=== PATIENT | female | born 1950 | race Caucasian/White ===

== ENCOUNTER 2019-03-25 17:02 | Inpatient (IN) | payer OTHER, SELFPAY ==
--- NOTE | ~2019-03-25 | XR_ITS ---
EXAMINATION: XR chest 2V DATE: 03/25/2019 20:06 INDICATION: Cough and shortness of breath TECHNIQUE: frontal and lateral views of the chest were obtained. COMPARISON: Chest radiograph dated 12/29/2018 FINDINGS: Megaly with pulmonary vascular congestion. Increased indistinct interstitial and subtle patchy airspa ce opacities throughout both lungs, right greater than left which could represent pulmonary edema and /or pneumonia. Trace pleural fluid along the fissures. No pneumothorax. Thoracic kyphosis with mild s pondylosis. Old proximal right humeral fracture deformity. IMPRESSION: 1. Bilateral lung disease which could represent mild to moderate pulmonary edema, pneumonia or some c ombination thereof. 2. Cardiomegaly with pulmonary vascular congestion. Reviewed, dictated and finalized at location A. N SALES REPRESENTATIVE IMPRESSION: 1. Bilateral lung disease which could represent mild to moderate pulmonary demario a, pneumonia or some combination thereof. 2. Cardiomegaly with pulmonary vascular congestion.
--- NOTE | ~2019-03-25 | US_ITS ---
EXAMINATION: US venous doppler [facility] DATE: 03/26/2019 10:38 INDICATION: Lower limb edema. TECHNIQUE: Grayscale ultrasound images without and with compression and Doppler ultrasound images of the bilateral lower extremity veins were obtained. COMPARISON: Ultrasound 12/29/2018 FINDINGS: The visualized portions of right common femoral vein, profunda (deep) femoral vein, femoral vein, pop liteal vein, peroneal veins, posterior tibial veins, and greater saphenous vein outflow are patent. The visualized portions of left common femoral vein, profunda femoral vein, femoral vein, popliteal v ein, peroneal veins, posterior tibial veins, and greater saphenous vein outflow are patent. IMPRESSION: 1. No deep venous thrombosis. Reviewed, dictated and finalized at location A. EU COUNSELOR
[2019-03-25 17:05] VITALS: BP 173/56; PULSE 78; RESP 20; TEMP 37.4; O2SAT 100
[2019-03-25 17:17] LABS: Glucose Point of Care 404 (65-105)
--- NOTE | 2019-03-25 17:59 | ED.RECABL ---
HPI - Recheck/Abnormal Lab/Rx General Chief Complaint: Recheck/Abnormal Lab/Rx Stated Complaint: HYPERGYCEMIA Time Seen by Provider: 03/25/19 17:16 Source: patient, family and RN notes reviewed Mode of arrival: ambulatory Limitations: no limitations History of Present Illness HPI narrative: A 68 y/o female presents to the ED with elevated BS beginning this morning. She states that when she woke up with morning that her BS was high, so she switched her pump. She reports that her BS then started to decrease but that this afternoon it began to increase and was 380 at 1650, so she decided to come to the ED. She notes associated nausea with one episode of vomiting, a rapid HR, and hoarse voice. She also notes that she has chronic BLE edema. She denies any fevers, chills, cough, SOB, CP, diarrhea, ABD pain, rash, or any other medical complaints at this time. MD complaint: abnormal lab Returns today for: other (checked BS this morning and it was elevated) Description of abnormal result: Elevated BS. Context: other (BS continued to increase after changing insulin pump) Associated symptoms: nausea (with one episode of vomiting) and other (rapid HR and hoarse voice) Treatments prior to arrival: other (Insulin pump) Related Data Home Medications Medication Instructions Recorded Confirmed Omnipod Dash 5 Pack Pod 12/29/18 12/29/18 amlodipine 10 mg PO QAM 12/29/18 12/30/18 aspirin 81 mg PO QPM 12/29/18 12/30/18 atorvastatin 40 mg PO QPM 12/29/18 12/30/18 calcium carbonate [Calcium 600] 600 mg PO QPM 12/29/18 12/30/18 metoprolol tartrate 100 mg PO DAILY 12/29/18 12/29/18 multivitamin 1 cap PO QAM 12/29/18 12/30/18 Allergies Allergy/AdvReac Type Severity Reaction Status Date / Time tramadol AdvReac Severe NAUSEA Verified 12/29/18 09:10 codeine AdvReac Intermediate MAKES HER Verified 12/29/18 09:10 FEEL BAD Review of Systems Review of Systems: All systems reviewed & are unremarkable except as noted in HPI and below Constitutional: Constitutional: Denies chills, Denies fatigue, Denies fever(s), Denies headache(s) and Denies night sweats Eyes: Eyes: Denies change in vision, Denies loss of vision and Denies other visual disturbances ENT: Denies headache(s), Reports hoarseness, Denies epistaxis, Denies nasal congestion and Denies sore throat Cardiovascular: Cardiovascular: Denies chest pain, Reports rapid heart rate, Denies leg edema and Denies dyspnea Respiratory: Respiratory: Denies cough, Denies dyspnea and Denies wheezing Gastrointestinal: Gastrointestinal: Denies abdominal pain, Denies diarrhea, Reports nausea and Reports vomiting (x1) Genitourinary: Genitourinary: Denies hematuria, Denies urinary frequency and Denies dysuria Musculoskeletal: Musculoskeletal: Denies abnormal gait, Denies deformity, Denies joint swelling, Denies muscle weakness and Denies numbness Integumentary/Breasts: Skin/Breast: Denies rash, Denies unusual bruising and Denies wounds Neurologic: Denies abnormal gait, Denies headache(s), Denies focal weakness, Denies loss of vision and Denies numbness Psychiatric: Psychiatric: Reports no additional psychiatric complaints Endocrine: Endocrine: Denies fatigue, Denies palpitations and Reports other (elevated BS) Hematologic/Lymphatic: Hematologic/Lymphatic: Denies easy bleeding and Denies easy bruising Allergic/Immunologic: Allergic/Immunologic: Denies wheezing PMFSH Past Medical History Medical History Colon polyps Colonoscopy in August 2017 showing internal hemorrhoids Hand fracture HTN (hypertension) Hyperlipidemia Hypoglycemia IDDM (insulin dependent diabetes mellitus) Mitral valve prolapse Moderate aortic stenosis By echo in 2018 Osteopenia Pedal edema Post-menopausal Retinopathy Surgical History Surgical History History of bilateral tubal ligation Family History Family History (Reviewed 03/25/19 @ 18:
[2019-03-25 18:22] LABS: Basophils Absolute Auto 0.1 K/mm3 (0.0-0.1); Basophils Percent Auto 0.9 % (0.2-1.2); Eosinophils Percent Auto 0.1 % (0-4.4); Hematocrit 26.9 % (37.0-47.0); Hemoglobin 8.6 g/dL (12.0-15.0); Immature Granulocyte Absolute 0.02 K/mm3 (0.00-0.031); Immature Granulocyte Percent A 0.3 % (0-0.5); Lymphocytes Percent Auto 22.4 % (18.3-44.2); Mean Corpuscular Hemoglobin 30.9 pg (26-34); Mean Corpuscular Volume 96.8 fl (80-100); Mean Platelet Volume 11.5 fl (7.4-10.4); Monocytes Absolute Auto 0.8 K/mm3 (0.1-0.6); Monocytes Percent Auto 11.6 % (2.6-8.5); Neutrophils Absolute Auto 4.3 K/mm3 (1.3-6.7); Neutrophils Percent Auto 64.7 % (45.5-73.1); Platelet Count Result 177 k/mm3 (150-375); Red Blood Count 2.78 M/mm3 (4.2-5.4); Red Cell Distribution Width 13.1 % (11.5-14.5); White Blood Count 6.7 K/mm3 (4.5-10.0)
[2019-03-25] MEDS: LACTATED RINGERS 1,000 ML 999 ML IV CONT ×2 (18:30→19:28)
[2019-03-25] MEDS: INSULIN HUMAN REGULAR (*BKC) 100 UNITS/ML IV PUSH (18:32)
[2019-03-25 18:35] LABS: Blood Urea Nitrogen 33 mg/dL (7-17); Calcium 8.4 mg/dL (8.4-10.2); Carbon Dioxide 21 mmol/L (22-30); Chloride 98 mmol/L (98-107); Estimated CRCL calculation 34 ml/min; Estimated Glomerular Filt Rate 37; Glucose 430 mg/dL (65-105); Potassium 4.3 mmol/L (3.4-5.0); Sodium 134 mmol/L (137-145)
[2019-03-25 18:40] LABS: Hemoglobin A1C 6.3 % (<5.7)
[2019-03-25 18:42] LABS: Beta-Hydroxybutyrate/Acetoacetate 1.31 mmol/L (0.02-0.27)
[2019-03-25 18:49] LABS: Add Urine Microscopic? YES; Appearance Urine Cloudy (Clear); Bacteria Urine Trace /hpf; Bilirubin Urine Negative (Negative); Blood Urine 1+ (Negative); Color Urine Yellow (Yellow); Glucose Urine UA 1+ mg/dL (Negative); Hyaline Casts Urine 30-49 /lpf; Ketones Urine Trace mg/dL (Negative); Leukocyte Esterase Ur Negative LEU/UL (Negative); Mucus Urine Few /lpf; Nitrate Urine Negative (Negative); Protein Urine 3+ mg/dL (Negative); Specific Grav Ur 1.013 (1.001-1.035); Squamous Epithelial Cell Urine Occasional /hpf (Few); Urobilinogen Urine Negative mg/dL (<2.0)
[2019-03-25 19:03] VITALS: BP 147/52; PULSE 76; RESP 19; O2SAT 97
[2019-03-25 19:07] LABS: Magnesium 2.1 mg/dL (1.6-2.3); Phosphorus 3.7 mg/dL (2.5-4.5)
[2019-03-25] MEDS: INSULIN HUMAN REGULAR (*BKC) 100 UNITS/ML 8 UNITS IV PUSH (19:18)
[2019-03-25 19:26] LABS: Glucose Point of Care 375 (65-105)
--- NOTE | 2019-03-25 19:43 | PC.NURSE ---
Patient's O2 saturations began to range from 88%-91% on RA, upon assessment on patient she states she feels a little short of breath. Patient placed on 2L NC at this time and states she feels so much better. ADELIA Lozano notified.
[2019-03-25 19:46] VITALS: O2SAT 95
[2019-03-25 19:47] VITALS: BP 161/70; PULSE 77; RESP 23; O2SAT 97
--- NOTE | 2019-03-25 19:53 | ECG_ITS ---
Measurements Intervals [place] Rate: 72 P: 13 LA: 185 QRS: 11 QRSD: 148 T: 19 QT: 412 QTc: 454 Interpretive Statements SINUS RHYTHM RIGHT BUNDLE BRANCH BLOCK ABNORMAL ECG Electronically Signed On 03-26-2019 7:09:38 DRAMATIC AGENT by Levon Azevedo D.O.
--- NOTE | 2019-03-25 20:02 | PC.NURSE ---
Patient in radiology
[2019-03-25 20:23] LABS: Troponin I 0.022 ng/mL (0.000-0.034)
--- NOTE | 2019-03-25 20:45 | PM.IMHP ---
H&P: HPI History of Present Illness Chief complaint: DKA Narrative: Mine Dwyer is a 68 year old female with insulin-dependent type 2 diabetes mellitus who presented to the emergency department earlier this evening from home for evaluation of hyperglycemia. She was just not feeling well when she woke this morning at that time she noticed that her glucose was > 400. Reportedly, or glucose was 135 when she went to bed last evening. She made some adjustments to her insulin pump and her glucose did improve somewhat however not long prior to arrival her number started to creep back up over 400. I believe she even change the site of her pump as well. She was found to be in mild DKA and is being admitted in this setting. Upon further questioning, she mentions being more fatigued lately but goes on to say that she is frequently tired, and daughters have noticed that she has fallen asleep even sitting up. She has no history of sleep apnea but she has been told that she snores loudly. She denies paroxysmal nocturnal dyspnea. She has not had chest pain or shortness of breath. No nausea, vomiting, or diarrhea. She denies dysuria, hesitancy, and urgency. Review of Systems Review of Systems: Narrative: Twelve systems were reviewed with pertinent positives and negatives as per HPI. She has had a mild headache the last couple of days. No cold or flu symptoms. No cough or shortness of breath. she has chronic lymphedema and uses a lymphedema machine twice per day. She has been on insulin pump for a little over 6 months, and seems to like it. More recently she has been having some nighttime lows, however. She is followed by Dr. Barber in [place]. No nephropathy. except as documented, all other systems were reviewed and are negative. [facility] Past Medical History Medical History (Updated 03/26/19 @ 01:55 by Rachel Louie PA-C) Chronic anemia Chronic kidney disease, stage 3 Colon polyps Colonoscopy in August 2017 showing internal hemorrhoids. Hand fracture Hyperlipidemia Hypertension Mitral valve prolapse Moderate aortic stenosis By echo in 2018. Osteopenia Post-menopausal Retinopathy Type 2 diabetes mellitus with insulin therapy Surgical History Surgical History History of bilateral tubal ligation Family History Family History (Updated 03/25/19 @ 22:46 by Radha M. Brown, RN) Mother Hypertension DVT (deep venous thrombosis) Vertigo Father Hypertension Cerebrovascular accident Sibling Graves disease Vertigo Social History Social History (Updated 03/26/19 @ 01:50 by Rachel Louie PA-C) Social History: The patient lives in her own home in [place]. She has a parakeet that she recently rescued. She has been for approximately 2 years now. She has 3 daughters, and designates them as her surrogate decision makers. She wishes to be a full code. She denies alcohol, tobacco, and drug use. Additional smoking assessment comments: AND FATHER SMOKED Spiritual care concerns: No Agree to blood products: Yes Meds Home Medications and Allergies Home Medications Medication Instructions Recorded Confirmed Type amlodipine 10 mg PO QAM 12/29/18 03/25/19 History aspirin 81 mg PO QPM 12/29/18 03/25/19 History atorvastatin 40 mg PO QPM 12/29/18 03/25/19 History calcium carbonate [Calcium 600] 600 mg PO QPM 12/29/18 03/25/19 History metoprolol tartrate 100 mg PO BID 12/29/18 03/25/19 History multivitamin 1 cap PO QAM 12/29/18 03/25/19 History alendronate 70 mg PO WEEKLY 03/25/19 03/25/19 History Allergies Allergy/AdvReac Type Severity Reaction Status Date / Time tramadol AdvReac Severe NAUSEA Verified 12/29/18 09:10 codeine AdvReac Intermediate MAKES HER Verified 12/29/18 09:10 FEEL BAD Vital Signs Vital Signs - 24 hr 03/25/19 17:05 03/25/19 19:03 03/25/19 19:46 Temperature 99.4 F Pulse Rate 78 76 Respiratory Rate 20
[2019-03-25 21:06] VITALS: BP 173/62; PULSE 75; RESP 23; O2SAT 96
[2019-03-25] MEDS: INSULIN HUMAN REGULAR (*BKC) 100 UNITS in SODIUM CHLORIDE 0.9% IV 99 ML 5.1 UNITS IV CONT (21:09)
[2019-03-25 21:14] LABS: Glucose Point of Care 316 (65-105)
[2019-03-25 22:00] LABS: Glucose Point of Care 266 (65-105)
[2019-03-25] MEDS: SODIUM CHLORIDE 0.9% IV 1,000 ML 150 ML IV CONT (22:10)
--- NOTE | 2019-03-25 22:18 | ADMGEN ---
This patient, Mine Dwyer, was admitted to Intensive Care Unit-7. Patient/family oriented to hospital policies and general routines including ID bracelet, bed and alarms, visiting hours, pain management, procedures, bathroom and other care routines, personal items, smoking policy, room service/diet, and visiting hours. Valuables list has been completed. Information on how to activate the Rapid Response Team has been discussed. Patient/Family are encouraged to report perceived risks to care and to ask questions if they do not understand what they are told or what they should do.
[2019-03-25 22:26] LABS: Blood Urea Nitrogen 33 mg/dL (7-17); Calcium 8.5 mg/dL (8.4-10.2); Carbon Dioxide 25 mmol/L (22-30); Chloride 99 mmol/L (98-107); Estimated CRCL calculation 36 ml/min; Estimated Glomerular Filt Rate 41; Glucose 270 mg/dL (65-105); Potassium 3.5 mmol/L (3.4-5.0); Sodium 136 mmol/L (137-145)
[2019-03-25 23:15] LABS: Glucose Point of Care 163 (65-105)
[2019-03-25] MEDS: KCL 20 MEQ/D5/0.45% SOD CHL 1,000 ML 150 ML IV CONT (23:22)
[2019-03-25 23:45] VITALS: PULSE 71
[2019-03-25] MEDS: METOPROLOL TARTRATE 50 MG TAB 100 MG PO (23:45)
[2019-03-25] MEDS: ATORVASTATIN 40 MG TABLET PO (23:45)
[2019-03-25 23:56] LABS: Glucose Point of Care 117 (65-105)
[2019-03-26] VITALS (10 sets, daily range): BP systolic 128–187; BP diastolic 57–112; PULSE 54–89; RESP 14–26; TEMP 36.4–36.7; O2SAT 92–98; BMI 35.9
[2019-03-26 00:45] LABS: Blood Urea Nitrogen 33 mg/dL (7-17); Calcium 8.3 mg/dL (8.4-10.2); Carbon Dioxide 26 mmol/L (22-30); Chloride 100 mmol/L (98-107); Estimated CRCL calculation 39 ml/min; Estimated Glomerular Filt Rate 45; Glucose 89 mg/dL (65-105); Potassium 3.4 mmol/L (3.4-5.0); Sodium 138 mmol/L (137-145)
[2019-03-26 01:06] LABS: Glucose Point of Care 83 (65-105)
--- NOTE | 2019-03-26 02:00 | ECHO_ITS ---
Patient Info Name: Mine Dwyer Age: 68 years : 1950 Gender: Female Ht: 62 in Wt: 174 lbs BSA: 1.89 m2 HR: 65 bpm BP: 176 / 55 mmHg Heart Rhythm: Sinus Rhythm Technical Quality: Good Exam Date: 03/26/2019 9:15 AM Exam Location: [facility] Patient Status: Inpatient Admit Date: 03/25/2019 Staff Ordering Physician: Rachel Louie PA-C Finishing Machine Operator Automatic: Berny Hamilton RDCS Attending Provider: Zeb Fam MD Referring Physician: Liban GARCIA; Exam Type: CA echo doppler color flow Study Info Indications I35.0 - Nonrheumatic aortic (valve) stenosis Complete two-dimensional, color flow and Doppler transthoracic echocardiogram is performed. Strain analysis performed. History/Risk Factors Aortic stenosis; DKA, DM2, HTN, CHF w/ BNP 8580. Summary 1. Left ventricular systolic function is normal, estimated at 55-60%. 2. There is mildly increased left ventricular wall thickness. 3. The left ventricular diastolic function is grade II diastolic dysfunction. 4. Left atrial chamber dimension is moderately enlarged. 5. Right atrial chamber dimension is mildly enlarged. 6. There is moderate aortic valve stenosis with a peak velocity of 327 cm/s, mean gradient of 22 mmHg, and aortic valve area of 1.2 cm2. 7. There is mild aortic valve regurgitation. 8. There is mild mitral valve regurgitation. 9. Moderate pulmonary hypertension, estimated pulmonary arterial systolic pressure is 50 mmHg. 10. There is mild tricuspid valve regurgitation. Left Ventricle Left ventricular chamber dimension is normal. Left ventricular systolic function is normal, estimated at 55-60%. There is mildly increased left ventricular wall thickness. The left ventricular diastolic function is grade II diastolic dysfunction. Global longitudinal strain is normal at -18 %. Right Ventricle Right ventricular chamber dimension is normal. Right ventricular systolic function is normal. Left Atria Left atrial chamber dimension is moderately enlarged. Right Atria Right atrial chamber dimension is mildly enlarged. Aortic Valve The aortic valve is trileaflet. There is moderate aortic valve stenosis with a peak velocity of 327 cm/s, mean gradient of 22 mmHg, and aortic valve area of 1.2 cm2. There is mild aortic valve regurgitation. There is moderate aortic valve calcification. Pulmonic Valve The pulmonic valve is not well visualized. There is trace pulmonic regurgitation. Mitral Valve The mitral valve has thickened leaflets. There is mild mitral valve regurgitation. The mitral valve annulus is moderately calcified. Tricuspid Valve The tricuspid valve leaflets are normal. There is mild tricuspid valve regurgitation. Moderate pulmonary hypertension, estimated pulmonary arterial systolic pressure is 50 mmHg. Pericardium/Pleural The pericardium appears normal. There is no pericardial effusion. Inferior Vena Cava Normal inferior vena cava with <50% collapse upon inspiration consistent with elevated right atrial pressure, 10 mmHg. Aorta The aortic root size at the sinus of Valsalva is normal. There is mild aortic atherosclerosis. Left Ventricular Outflow Tract Name Value Normal LVOT 2D LVOT Diam
[2019-03-26 02:11] LABS: Glucose Point of Care 92 (65-105)
[2019-03-26 02:43] LABS: NT Pro B Type Natriuretic Pept 8580 PG/ML (5-100)
[2019-03-26 03:20] LABS: Glucose Point of Care 112 (65-105)
[2019-03-26 04:15] LABS: Glucose Point of Care 113 (65-105)
[2019-03-26 05:18] LABS: Blood Urea Nitrogen 29 mg/dL (7-17); Calcium 8.1 mg/dL (8.4-10.2); Carbon Dioxide 25 mmol/L (22-30); Chloride 102 mmol/L (98-107); Estimated CRCL calculation 39 ml/min; Estimated Glomerular Filt Rate 45; Glucose 121 mg/dL (65-105); Potassium 3.7 mmol/L (3.4-5.0); Sodium 135 mmol/L (137-145)
[2019-03-26] MEDS: KCL 20 MEQ/D5/0.45% SOD CHL 1,000 ML 150 ML IV CONT (05:40)
[2019-03-26 05:58] LABS: Glucose Point of Care 127 (65-105)
[2019-03-26 06:24] LABS: Glucose Point of Care 142 (65-105)
[2019-03-26 07:29] LABS: Glucose Point of Care 140 (65-105)
[2019-03-26] MEDS: INSULIN GLARGINE (*BKC) 100 UNITS/ML 15 UNITS SUB-Q (08:37)
[2019-03-26 08:38] LABS: Blood Urea Nitrogen 29 mg/dL (7-17); Calcium 8.1 mg/dL (8.4-10.2); Carbon Dioxide 27 mmol/L (22-30); Chloride 102 mmol/L (98-107); Estimated CRCL calculation 42 ml/min; Estimated Glomerular Filt Rate 45; Glucose 131 mg/dL (65-105); Potassium 3.7 mmol/L (3.4-5.0); Sodium 135 mmol/L (137-145)
[2019-03-26] MEDS: METOPROLOL TARTRATE 50 MG TAB 100 MG PO ×2 (08:39→20:26)
[2019-03-26] MEDS: AMLODIPINE BESYLATE 5 MG TABLET 10 MG PO (08:39)
[2019-03-26] MEDS: MULTIVITAMINS THERAPEUTIC TAB (*BKC) 1 TABLET PO (08:40)
[2019-03-26 08:51] LABS: Glucose Point of Care 133 (65-105)
--- NOTE | 2019-03-26 09:06 | PM.IMPN ---
Progress Note: A&P Assessment and Plan (1) DKA (diabetic ketoacidoses): Code(s): E11.10 - Type 2 diabetes mellitus with ketoacidosis without coma Status: Acute Assessment and Plan: Glucose 430, AG 15 and BHO 1.3. Patient admitted to the ICU on DKA protocol. AG 8 this morning. Patient being weaned off the insulin drip. Patient to bring in her insulin from home. Dietitian and adaptive physical educator consult. ict educator to assist with ensuring the patient is applying this correctly and make sure her equipment is working appropriately. (2) Chronic kidney disease, stage 3: Code(s): N18.3 - Chronic kidney disease, stage 3 (moderate) Status: Acute Assessment and Plan: Cr 1.4 on admission and improved to 1.2 this morning. Continue to follow. (3) Chronic anemia: Code(s): D64.9 - Anemia, unspecified Status: Acute Assessment and Plan: Hgb 8.9 in December. Hgb 8.6 yesterday. No iron studies, etc listed. Will check (4) Pulmonary infiltrates on CXR: Code(s): R91.8 - Other nonspecific abnormal finding of lung field Status: Acute Assessment and Plan: CXR consistent with pulmonary edema and BNP 8600. PNA seems less likely. She may have CHF related to her valve disease. Echo ordered. Will do CHF teaching and start Lasix. Monitor renal function closely. We will check lower extremity venous Dopplers given the positive Homans sign as well as the asymmetry of her leg edema.. (5) IDDM (insulin dependent diabetes mellitus): Code(s): E11.9 - Type 2 diabetes mellitus without complications; Z79.4 - care home (current) use of insulin Status: Acute Assessment and Plan: A1c 6.3. Aas above. Resume home insulin regimen when able. ict educator and dietitian consult. (6) Moderate aortic stenosis: Code(s): I35.0 - Nonrheumatic aortic (valve) stenosis Status: Acute Assessment and Plan: Patient with known moderate aortic stenosis. If this is worsening, this may be contributing to her CHF. Repeat echo ordered. (7) HTN (hypertension): Qualifiers: Hypertension type: essential hypertension Qualified Code(s): I10 - Essential (primary) hypertension Code(s): I10 - Essential (primary) hypertension Status: Acute Assessment and Plan: Blood pressure reviewed on 03/26/2019. Blood pressure elevated but home medications have just been resumed. Will continue amlodipine and metoprolol. Continue to monitor and adjust medications accordingly. Subjective Date/time seen: 03/26/19 09:06 Interval history: 68yo female here for DKA. Chart reviewed. Patient still on the insulin drip this morning. She also has been hypertensive per nursing staff. Patient complains of dyspnea exertion when she walks the bathroom. Good urine output. Patient was taken off Lasix and no member or renal failure. She has been using mechanical compression devices at home to manage her chronic leg edema. Patient states her glucose has been well managed up until prior to admission when her sugar was in the 400 range. She feels well today. No chest pain. No shortness of breath at rest. Exam Narrative: Exam Narrative: Gen - NARD lying semi-recumbent in bed Chest - decreased BS bibasilar with inspiratory crackles mid lung field. no conversational dyspnea. CV - RRR S1/S2. 2/6 systolic murmur heard loudest in the right upper sternal border. Elevated JVP. Tele showing no significant dysrhythmias GI -soft. Nontender. Nondistended. Positive bowel sounds. Ext - Left LE pitting edema, scant on the right. Positive Bryce's sign on the right. Neuro - Alert. nonfocal exam Psych -normal mood and affect. Pleasant and cooperative. Objective Data Vital Signs Vital Signs: Vital Signs - 24 hr 03/25/19 17:05 03/25/19 19:03 03/25/19 19:46 Temperature 99.4 F Pulse Rate 78 76 Respiratory Rate 20 19 Blood Pres
--- NOTE | 2019-03-26 11:56 | PCDIET ---
Patient reports being educated previously re: carbohydrate counting and tries to count carbohydrates at home. Declined education and Diabetes Management booklet, as she reports also having at home from previous admission. Patient states HgbA1C (6.3%) is about the best it has ever been and levels generally well controlled, other than the two times pump has seemingly malfunctioned. Commended patient on effort and encouraged her to call with questions or concerns that arise.
[2019-03-26 12:22] LABS: Glucose Point of Care 108 (65-105)
--- NOTE | 2019-03-26 13:12 | WPDCNINT ---
Assessment and Plan Assessment and plan (1) DKA (diabetic ketoacidoses): Qualifiers: Diabetes mellitus type: type 2 Code(s): E11.10 - Type 2 diabetes mellitus with ketoacidosis without coma Status: Acute Assessment and Plan: patient presented with elevated sugars, was found to have DKA in the ED with elevated blood sugars, elevated beta hydroxybutyrate and metabolic acidosis. It could be related to malfunctioning of her insulin pump as she changed her site 2 times in the last 3 days prior to admission - patient was adequately fluid resuscitated, started insulin drip per DKA protocol - this morning transition patient to long-acting insulin sliding scale insulin. Continue Accu-Cheks - diabetic diet (2) Chronic kidney disease, stage 3: Code(s): N18.3 - Chronic kidney disease, stage 3 (moderate) Status: Acute Assessment and Plan: chronic kidney disease, patient presented with acute on chronic kidney disease, adequately fluid-resuscitated, creatinine improving. Patient has had adequate urine output, will continue to monitor (3) Chronic anemia: Code(s): D64.9 - Anemia, unspecified Status: Acute Assessment and Plan: patient history of anemia, iron panel has been ordered (4) Pulmonary infiltrates on CXR: Code(s): R91.8 - Other nonspecific abnormal finding of lung field Status: Acute Assessment and Plan: pulmonary infiltrates likely related to congestive heart failure - patient has been started on her Lasix (5) IDDM (insulin dependent diabetes mellitus): Code(s): E11.9 - Type 2 diabetes mellitus without complications; Z79.4 - intermediate card tender (current) use of insulin Status: Acute Assessment and Plan: insulin-dependent diabetes on insulin pump - patient was recently admitted in December of 2018 for hyperglycemia - hemoglobin A1c is 6.3 this admission (6) HTN (hypertension): Qualifiers: Hypertension type: essential hypertension Qualified Code(s): I10 - Essential (primary) hypertension Code(s): I10 - Essential (primary) hypertension Status: Acute Assessment and Plan: patient with essential hypertension, continue amlodipine, metoprolol, Lasix (7) DVT prophylaxis: Code(s): Z29.9 - Encounter for prophylactic measures, unspecified Status: Acute Assessment and Plan: SCDs Additional Plan discussed with patient in details and updated with her condition and plan of care. Code status: Full code Critical care time spent: 38 minutes Due to a high probability of clinically significant, life threatening deterioration, the patient required my highest level of preparedness to intervene emergently and I personally spent this critical care time directly and personally managing the patient. This critical care time included obtaining a history; examining the patient; pulse oximetry; ordering and review of studies; arranging urgent treatment with development of a management plan; evaluation of patient's response to treatment; frequent reassessment; and discussions with other providers. It was exclusive of separately billable procedures and treating other patients and teaching time. Please see Assessment and Plan section and the rest of the note for further information on patient assessment and treatment Clinical Research Director Consult Note Consult date: 03/26/19 Time Seen: 07:04 Reason for consult: DIABETIC KETOACIDOSIS, possible malfunction of her insulin pump HPI: Mine Dwyer is a 68 year old female with past medical history of insulin-dependent diabetes, hyperlipidemia, essential hypertension, moderate aortic stenosis, retinopathy, mitral valve prolapse presented to the ED on 03/25/2019 with elevated blood sugars. Patient stated that she woke up with elevated blood sugars and switched her insulin pump to a different site. But blood sugars continue to increase so she decided come to the ED.
[2019-03-26] MEDS: ASPIRIN 81 MG CHEWABLE TABLET PO (17:00)
[2019-03-26] MEDS: CALCIUM CARBONATE (OSCAL) 500 MG TABLET PO (17:00)
[2019-03-26] MEDS: FUROSEMIDE INJ 40 MG/4 ML VIAL IV PUSH (17:00)
[2019-03-26] MEDS: ATORVASTATIN 40 MG TABLET PO (17:00)
--- NOTE | 2019-03-26 19:01 | PC.NURSE ---
This patient, Mine Dwyer, was received from ICU on 03/26/19 at 1901. Personal belongings list checked and signed. Patient/family oriented to unit policies and routines
--- NOTE | 2019-03-26 19:03 | PC.NURSE ---
This patient, Mine Dwyer, was transferred to [ [id number]] on 03/26/19 at 1903. Personal belongings sent with patient.signed with receiving [ [ ]. Appropriate documentation sent with patient.
[2019-03-26 20:35] LABS: Glucose Point of Care 128 (65-105)
[2019-03-27] VITALS: BP 161/62; PULSE 74; RESP 16; TEMP 36.2; O2SAT 100
[2019-03-27 05:37] LABS: Glucose Point of Care 106 (65-105)
[2019-03-27 05:41] VITALS: BP 158/66; PULSE 73; RESP 16; TEMP 36.3; O2SAT 95
[2019-03-27 06:04] LABS: Basophils Absolute Auto 0.1 K/mm3 (0.0-0.1); Eosinophils Absolute Auto 0.4 K/mm3 (0-0.3); Eosinophils Percent Auto 4.9 % (0-4.4); Hematocrit 29.1 % (37.0-47.0); Hemoglobin 9.3 g/dL (12.0-15.0); Immature Granulocyte Absolute 0.01 K/mm3 (0.00-0.031); Immature Granulocyte Percent A 0.1 % (0-0.5); Lymphocytes Absolute Auto 2.01 K/mm3 (0.9-3.2); Lymphocytes Percent Auto 25.2 % (18.3-44.2); Mean Corpuscular Hemoglobin 30.6 pg (26-34); Mean Corpuscular Volume 95.7 fl (80-100); Mean Platelet Volume 10.8 fl (7.4-10.4); Monocytes Absolute Auto 0.9 K/mm3 (0.1-0.6); Monocytes Percent Auto 11.4 % (2.6-8.5); Neutrophils Absolute Auto 4.6 K/mm3 (1.3-6.7); Neutrophils Percent Auto 57.4 % (45.5-73.1); Platelet Count Result 195 k/mm3 (150-375); Red Blood Count 3.04 M/mm3 (4.2-5.4); Red Cell Distribution Width 13.2 % (11.5-14.5)
[2019-03-27 06:30] LABS: Albumin Level 3.3 g/dL (3.5-5.1); Blood Urea Nitrogen 26 mg/dL (7-17); Calcium 8.4 mg/dL (8.4-10.2); Carbon Dioxide 25 mmol/L (22-30); Chloride 102 mmol/L (98-107); Estimated CRCL calculation 41 ml/min; Estimated Glomerular Filt Rate 45; Glucose 103 mg/dL (65-105); Phosphorus 3.5 mg/dL (2.5-4.5); Potassium 3.7 mmol/L (3.4-5.0); Sodium 138 mmol/L (137-145)
[2019-03-27 06:38] LABS: Iron 38 ug/dL (37-170)
[2019-03-27 06:41] LABS: Blood Urea Nitrogen 26 mg/dL (7-17); Calcium 8.4 mg/dL (8.4-10.2); Carbon Dioxide 25 mmol/L (22-30); Chloride 102 mmol/L (98-107); Estimated CRCL calculation 41 ml/min; Estimated Glomerular Filt Rate 45; Glucose 103 mg/dL (65-105); Phosphorus 3.5 mg/dL (2.5-4.5); Potassium 3.7 mmol/L (3.4-5.0); Sodium 137 mmol/L (137-145)
[2019-03-27 06:48] LABS: Percent Iron Saturation 16 % (20-50)
[2019-03-27] MEDS: ALENDRONATE SODIUM 70 MG TABLET PO (07:26)
[2019-03-27 07:46] LABS: Glucose Point of Care 80 (65-105)
[2019-03-27 09:02] LABS: Folic Acid > 20.0 ng/mL (2.76->20)
[2019-03-27 09:17] VITALS: PULSE 76
[2019-03-27] MEDS: MULTIVITAMINS THERAPEUTIC TAB (*BKC) 1 TABLET PO (09:17)
[2019-03-27] MEDS: AMLODIPINE BESYLATE 5 MG TABLET 10 MG PO (09:17)
[2019-03-27] MEDS: METOPROLOL TARTRATE 50 MG TAB 100 MG PO (09:17)
[2019-03-27] MEDS: FUROSEMIDE INJ 40 MG/4 ML VIAL IV PUSH (09:18)
[2019-03-27 13:03] LABS: Glucose Point of Care 159 (65-105)
[2019-03-27] MEDS: ACETAMINOPHEN 325 MG TABLET 650 MG PO (15:00)
[2019-03-27] MEDS: MUPIROCIN 2% OINT 22 GM TUBE 1 APPLIC EACH NARE (15:01)
--- NOTE | 2019-03-27 15:11 | PM.IMPN ---
Progress Note: A&P Assessment and Plan (1) DKA (diabetic ketoacidoses): Qualifiers: Diabetes mellitus complication detail: without coma Diabetes mellitus type: type 2 Qualified Code(s): E11.10 - Type 2 diabetes mellitus with ketoacidosis without coma Code(s): E11.10 - Type 2 diabetes mellitus with ketoacidosis without coma Status: Acute Assessment and Plan: Now resolved. Transferred out of ICU yesterday after completing DKA protocol. Glucose reviewed on 03/27/2019 and now stable. Has been seen by dietitian and [employer] technical lead senior developer. Suspect was result issues with current insulin pump. Will discharge home today to follow-up with her regular admissions recruiter. 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 Back on home insulin pump. Follow-up with regular admissions recruiter as outpatient. (3) Chronic kidney disease, stage 3: Code(s): N18.3 - Chronic kidney disease, stage 3 (moderate) Status: Acute Assessment and Plan: Creatinine remains in her normal baseline range of 1.20 today. Follow as outpatient. (4) CHF (congestive heart failure): Qualifiers: Heart failure type: diastolic Heart failure chronicity: acute on chronic Qualified Code(s): I50.33 - Acute on chronic diastolic (congestive) heart failure Code(s): I50.9 - Heart failure, unspecified Status: Acute Assessment and Plan: Chest x-ray on 03/25/2019 with [id number] pulmonary edema, pneumonia or some combination thereof. Clinically does not have pneumonia. Also noted to have cardiomegaly with pulmonary vascular congestion. Echocardiogram with 55-60%, diastolic dysfunction Grade II and moderate pulmonary hypertension. Has been on IV Lasix. Will return to oral Lasix at discharge. Previously has been on oral Lasix in the past. Will need to follow-up with primary physician. Venous Dopplers of the lower extremities with no DVT. Apnea link also done and abnormal. Will need formal outpatient sleep study. (5) Moderate aortic stenosis: Code(s): I35.0 - Nonrheumatic aortic (valve) stenosis Status: Acute Assessment and Plan: Echocardiogram with aortic stenosis unchanged at moderate. Follow as outpatient. (6) HTN (hypertension): Qualifiers: Hypertension type: essential hypertension Qualified Code(s): I10 - Essential (primary) hypertension Code(s): I10 - Essential (primary) hypertension Status: Acute Assessment and Plan: Blood pressure reviewed on 03/27/2019. Blood pressure still with some elevation but acceptable. Will continue amlodipine and metoprolol. Follow as outpatient. (7) Chronic anemia: Code(s): D64.9 - Anemia, unspecified Status: Acute Assessment and Plan: She has no active signs of bleeding. Hemoglobin remains stable compared to records here at 9.3. Vitamin B12, folate normal. Iron studies consistent with anemia of chronic disease. Can follow as outpatient. (8) Positive nasal culture for methicillin resistant Staphylococcus aureus: Code(s): Z22.322 - Carrier or suspected carrier of Methicillin resistant Staphylococcus aureus Status: Acute Assessment and Plan: MRSA nasal swab is positive. Isolation started today. Will continue Bactroban at home to complete 5 days treatment. (9) DVT prophylaxis: Code(s): Z29.9 - Encounter for prophylactic measures, u
--- NOTE | 2019-03-27 20:05 | PM.DS ---
DS: Diagnosis Admitting Diagnosis Admitting Diagnosis: Type 2 diabetes mellitus with ketoacidosis without coma Discharge Diagnosis (1) DKA (diabetic ketoacidoses): Qualifiers: Diabetes mellitus complication detail: without coma Diabetes mellitus type: type 2 Qualified Code(s): E11.10 - Type 2 diabetes mellitus with ketoacidosis without coma Code(s): E11.10 - Type 2 diabetes mellitus with ketoacidosis without coma Status: Acute (2) Diabetes mellitus with stage 3 chronic kidney disease, with long-term current use of insulin: Qualifiers: Diabetes mellitus type: type 2 Qualified Code(s): E11.22 - Type 2 diabetes mellitus with diabetic chronic kidney disease; N18.3 - Chronic kidney disease, stage 3 (moderate); Z79.4 - meterman (current) use of insulin Code(s): E11.22 - Type 2 diabetes mellitus with diabetic chronic kidney disease; N18.3 - Chronic kidney disease, stage 3 (moderate); Z79.4 - meterman (current) use of insulin Status: Acute (3) Chronic kidney disease, stage 3: Code(s): N18.3 - Chronic kidney disease, stage 3 (moderate) Status: Acute (4) CHF (congestive heart failure): Qualifiers: Heart failure chronicity: acute on chronic Heart failure type: diastolic Qualified Code(s): I50.33 - Acute on chronic diastolic (congestive) heart failure Code(s): I50.9 - Heart failure, unspecified Status: Acute (5) Moderate aortic stenosis: Code(s): I35.0 - Nonrheumatic aortic (valve) stenosis Status: Acute (6) HTN (hypertension): Qualifiers: Hypertension type: essential hypertension Qualified Code(s): I10 - Essential (primary) hypertension Code(s): I10 - Essential (primary) hypertension Status: Acute (7) Chronic anemia: Code(s): D64.9 - Anemia, unspecified Status: Acute (8) Positive nasal culture for methicillin resistant Staphylococcus aureus: Code(s): Z22.322 - Carrier or suspected carrier of Methicillin resistant Staphylococcus aureus Status: Acute DS: Summary Hospital Course Reason for hospitalization: Hyperglycemia. Hospital Course: Date of Service of Discharge: March 27, 2019. History of Present Illness: Patient is a 68-year-old with known insulin-requiring type 2 diabetes mellitus present emergency room with increasing glucose levels. Patient is on insulin pump at home. She reports she was not feeling well when she awakened on the morning of presentation with glucose greater than 400. Patient reports glucose was 135. Going to bed. She did make some adjustments to her insulin pump as previously directed by her [employer] advisor with some improvement in glucose. However, secondarily glucose continue to rise back up over 400. No recent fever, chills or sweats. No chest pain or shortness of breath. No cough. No abdominal pain. No nausea or vomiting. In the emergency room findings were consistent with DKA. As result, she was admitted for further evaluation and treatment. Course in Hospital: On admission, patient was placed in the intensive care unit with management supervisor consultation. DKA protocol was initiated with patient receiving appropriate treatment including IV fluids and IV insulin. Once anion gap was corrected and glucose improved, patient was given Lantus. She was then secondarily restarted on her home insulin pump. Glucose continue to be monitored and remained in the acceptable range. She was able to be transferred from the intensive care unit to the medical floor on 03/26/2019 and remained there for the duration of her stay. Patient was seen by dietitian and parent educator while in hospital. Discussion with parent educator did include checking ketones at home. Patient also to follow-up with her regular [employer] advisor, Dr. Barber, after discharge. Creatinine was monitored and remained normal throughout her stay. Additionally, patient was noted to have imaging with
== END 2019-03-27 16:20 | disposition home or self-care (01) | DRG 637 ==
LOC: ANHED 20:25 → ANHICU 21:08 → ANH3MED 03-26 23:51 → ANHICU 03-30 07:17
PROVIDERS: Internal Medicine; Physician Assistant; Admitting Provider Internal Medicine; Emergency Provider Emergency Medicine; PCP Family Medicine; Visit Provider Hospitalist
DX: E11.10 Type 2 diabetes mellitus with ketoacidosis without coma (principal); I50.33 Acute on chronic diastolic (congestive) heart failure; I13.0 Hypertensive heart and chronic kidney disease with heart failure and stage 1 through stage 4 chronic kidney disease, or unspecified chronic kidney disease; E11.22 Type 2 diabetes mellitus with diabetic chronic kidney disease; N18.3 Chronic kidney disease, stage 3 (moderate); E11.65 Type 2 diabetes mellitus with hyperglycemia; I35.0 Nonrheumatic aortic (valve) stenosis; D64.9 Anemia, unspecified; E78.5 Hyperlipidemia, unspecified; E11.319 Type 2 diabetes mellitus with unspecified diabetic retinopathy without macular edema; R91.8 Other nonspecific abnormal finding of lung field; M85.80 Other specified disorders of bone density and structure, unspecified site; Z22.322 Carrier or suspected carrier of Methicillin resistant Staphylococcus aureus; Z79.4 Long term (current) use of insulin
CPT/HCPCS: 36415; 71046; 80048; 80069; 81001; 82010; 82607; 82728; 82746; 82948; 83036; 83540; 83550; 83735; 83880; 84100; 84443; 84484; 85025; 87081; 93005; 93306; 93970; 94762; 96361; 96365; 96376; 99291; A9270; J1815; J1940; J3480; J7030; J7120

== ENCOUNTER 2019-04-18 06:32 | Observation (INO) | payer OTHER, SELFPAY ==
[2019-04-18] VITALS (13 sets, daily range): BP systolic 126–180; BP diastolic 46–63; PULSE 64–83; RESP 16–23; TEMP 36.4–36.7; O2SAT 93–100; BMI 32.5
--- NOTE | 2019-04-18 06:51 | ED.RECABL ---
HPI - Recheck/Abnormal Lab/Rx General Chief Complaint: Recheck/Abnormal Lab/Rx Stated Complaint: blood sugar is high/ketones elevated Time Seen by Provider: 04/18/19 06:40 Source: patient Mode of arrival: ambulatory Limitations: no limitations History of Present Illness HPI narrative: Patient is a 68-year-old female who presents to the emergency department with complaint of elevated blood sugar. Patient reports blood sugar becoming elevated in the 300s last night. Patient noted ketones in her urine this morning. Patient has continuous blood glucose monitoring and an insulin pump. Patient gave herself a small insulin bolus last night when her sugar was over 300. Patient notes some nausea this morning. She denies any vomiting or abdominal pain. Patient denies any urinary symptoms or recent illness. Patient recently saw her primary care physician for headache, but states she does not currently have a headache. complaint: abnormal lab (High blood sugar) Related Data Home Medications Medication Instructions Recorded Confirmed amlodipine 10 mg PO QAM 12/29/18 03/25/19 aspirin 81 mg PO QPM 12/29/18 03/25/19 atorvastatin 40 mg PO QPM 12/29/18 03/25/19 calcium carbonate [Calcium 600] 600 mg PO QPM 12/29/18 03/25/19 metoprolol tartrate 100 mg PO BID 12/29/18 03/25/19 multivitamin 1 cap PO QAM 12/29/18 03/25/19 alendronate 70 mg PO WEEKLY 03/25/19 03/25/19 Allergies Allergy/AdvReac Type Severity Reaction Status Date / Time tramadol AdvReac Severe NAUSEA Verified 04/18/19 08:10 codeine AdvReac Intermediate MAKES HER Verified 04/18/19 08:10 FEEL BAD Review of Systems Review of Systems: All systems reviewed & are unremarkable except as noted in HPI and below Constitutional: Constitutional: Denies fever(s) Respiratory: Respiratory: Denies cough Gastrointestinal: Gastrointestinal: Denies abdominal pain, Reports nausea and Denies vomiting Genitourinary: Genitourinary: Denies dysuria Neurologic: Reports headache(s) [facility] Past Medical History Medical History Chronic anemia Chronic kidney disease, stage 3 Colon polyps Colonoscopy in August 2017 showing internal hemorrhoids. Diabetes mellitus with stage 3 chronic kidney disease, with long-term current use of insulin Hand fracture Hyperlipidemia Hypertension Mitral valve prolapse Moderate aortic stenosis By echo in 2018. Osteopenia Post-menopausal Retinopathy Type 2 diabetes mellitus with insulin therapy Surgical History Surgical History History of bilateral tubal ligation Family History Family History (System 03/28/19 @ 09:47 by Irlanda Major) Mother Hypertension DVT (deep venous thrombosis) Vertigo Father Hypertension Cerebrovascular accident Sibling Graves disease Vertigo Sibling Family history of thyroid disease Family history of obesity Mother Family history of cataracts Other Family history of arthritis Family history of hearing loss Social History Social History (Updated 04/18/19 @ 06:53 by Mellissa Whitfield MD) Social History: The patient lives in her own home in [place]. She has a parakeet that she recently rescued. She has been for approximately 2 years now. She has 3 daughters, and designates them as her surrogate decision makers. She wishes to be a full code. She denies alcohol, tobacco, and drug use. Smoking status: Never smoker Second hand tobacco smoke exposure: Yes Additional smoking assessment comments: AND FATHER SMOKED Alcohol intake: never Substance use: never Gender identity (if verbalized by the patient): Female Exam Const: General: cooperative, no acute distress and alert Nutritional Appearance: overweight Orientation/consciousness: patient oriented x3 Limitations: no limitations HENMT: Mouth: Yes lip normal and Yes moist mucous membranes
[2019-04-18] MEDS: SODIUM CHLORIDE 0.9% IV 1,000 ML 999 ML IV CONT ×2 (07:15→08:15)
[2019-04-18 07:28] LABS: Basophils Absolute Auto 0.1 K/mm3 (0.0-0.1); Basophils Percent Auto 0.8 % (0.2-1.2); Eosinophils Absolute Auto 0.3 K/mm3 (0-0.3); Eosinophils Percent Auto 2.4 % (0-4.4); Hematocrit 30.2 % (37.0-47.0); Hemoglobin 9.6 g/dL (12.0-15.0); Immature Granulocyte Absolute 0.03 K/mm3 (0.00-0.031); Immature Granulocyte Percent A 0.3 % (0-0.5); Lymphocytes Absolute Auto 1.55 K/mm3 (0.9-3.2); Lymphocytes Percent Auto 14.6 % (18.3-44.2); Mean Corpuscular HGB Conc 31.8 g/dl (32-36); Mean Corpuscular Hemoglobin 30.6 pg (26-34); Mean Corpuscular Volume 96.2 fl (80-100); Mean Platelet Volume 11.2 fl (7.4-10.4); Monocytes Absolute Auto 0.9 K/mm3 (0.1-0.6); Monocytes Percent Auto 8.7 % (2.6-8.5); Neutrophils Absolute Auto 7.8 K/mm3 (1.3-6.7); Neutrophils Percent Auto 73.2 % (45.5-73.1); Platelet Count Result 204 k/mm3 (150-375); Red Blood Count 3.14 M/mm3 (4.2-5.4); Red Cell Distribution Width 13.3 % (11.5-14.5); White Blood Count 10.6 K/mm3 (4.5-10.0)
[2019-04-18 07:39] LABS: Add Urine Microscopic? YES; Appearance Urine Clear (Clear); Bacteria Urine Trace /hpf; Bilirubin Urine Negative (Negative); Blood Urine 1+ (Negative); Color Urine Yellow (Yellow); Glucose Urine UA 2+ mg/dL (Negative); Ketones Urine 1+ mg/dL (Negative); Leukocyte Esterase Ur Negative LEU/UL (Negative); Mucus Urine Rare /lpf; Nitrate Urine Negative (Negative); Protein Urine 3+ mg/dL (Negative); Specific Grav Ur 1.018 (1.001-1.035); Squamous Epithelial Cell Urine Rare /hpf (Few); Urobilinogen Urine Negative mg/dL (<2.0); WBC Urine 0-3 /hpf
[2019-04-18 07:41] LABS: Alanine Aminotransferase 21 U/L (4-35); Albumin Level 3.9 g/dL (3.5-5.1); Alkaline Phosphatase 104 U/L (38-126); Aspartate Amino Transferase 36 U/L (14-36); Bilirubin,Total 0.6 mg/dL (0.2-1.3); Blood Urea Nitrogen 26 mg/dL (7-17); Calcium 8.7 mg/dL (8.4-10.2); Carbon Dioxide 22 mmol/L (22-30); Chloride 101 mmol/L (98-107); Estimated CRCL calculation 34 ml/min; Estimated Glomerular Filt Rate 37; Glucose 365 mg/dL (65-105); Potassium 4.3 mmol/L (3.4-5.0); Sodium 136 mmol/L (137-145)
[2019-04-18 07:45] LABS: Beta-Hydroxybutyrate/Acetoacetate 2.07 mmol/L (0.02-0.27)
[2019-04-18] MEDS: INSULIN HUMAN REGULAR (*BKC) 100 UNITS/ML 8 UNITS IV PUSH (08:15)
[2019-04-18] MEDS: ONDANSETRON INJ 4 MG/2 ML VIAL IV PUSH (08:27)
[2019-04-18 08:56] LABS: Hemoglobin A1C 6.2 % (<5.7)
[2019-04-18 09:27] LABS: Glucose Point of Care 278 (65-105)
[2019-04-18 10:17] LABS: Blood Urea Nitrogen 26 mg/dL (7-17); Calcium 7.8 mg/dL (8.4-10.2); Carbon Dioxide 21 mmol/L (22-30); Chloride 106 mmol/L (98-107); Estimated CRCL calculation 36 ml/min; Estimated Glomerular Filt Rate 41; Glucose 294 mg/dL (65-105); Potassium 3.6 mmol/L (3.4-5.0); Sodium 136 mmol/L (137-145)
[2019-04-18] MEDS: SODIUM CHLORIDE 0.9% IV 500 ML 999 ML IV CONT (10:51)
[2019-04-18 11:12] LABS: Glucose Point of Care 244 (65-105)
[2019-04-18] MEDS: INSULIN GLARGINE (*BKC) 100 UNITS/ML 20 UNITS SUB-Q (11:30)
[2019-04-18] MEDS: INSULIN ASPART (*BKC) 100 UNITS/ML SUB-Q ×2 (11:31→16:49)
[2019-04-18] MEDS: SODIUM CHLORIDE 0.9% IV 1,000 ML 100 ML IV CONT ×2 (11:31→16:52)
[2019-04-18 11:41] LABS: Glucose Point of Care 273 (65-105)
--- NOTE | 2019-04-18 13:30 | WPDCNINT ---
Assessment and Plan Assessment and plan (1) DKA (diabetic ketoacidoses): Qualifiers: Diabetes mellitus complication detail: without coma Diabetes mellitus type: other specified (including LOBO) Qualified Code(s): E13.10 - Other specified diabetes mellitus with ketoacidosis without coma Code(s): E11.10 - Type 2 diabetes mellitus with ketoacidosis without coma Status: Acute Assessment and Plan: Patient presented with hyperglycemia which she checks with her Dexacom - patient initially had an anion gap of 13 ED, insulin aspart units IV x1. - Upon arrival to the ICU, repeat BMP showed an anion gap of 9, infusion was not started - patient was given Lantus 20 units and started high-dose sliding scale insulin with Accu-Cheks q.4 hours. - Monitor BMP, started on IV fluids and clear liquid diet - if blood sugars remain elevated or anion gap increases will start insulin infusion per DKA protocol - patient is high hyperglycemic likely because of the malfunctioning for insulin pump (2) Chronic kidney disease, stage 3: Code(s): N18.3 - Chronic kidney disease, stage 3 (moderate) Status: Acute Assessment and Plan: patient history of chronic kidney disease stage III - baseline creatinine seems like 1.2-1.4 - will continue to monitor renal function, electrolytes and urine output (3) HTN (hypertension): Qualifiers: Hypertension type: essential hypertension Qualified Code(s): I10 - Essential (primary) hypertension Code(s): I10 - Essential (primary) hypertension Status: Acute Assessment and Plan: patient takes amlodipine and Lasix at home, will hold for now and will give p.r.n. antihypertensives if needed (4) Moderate aortic stenosis: Code(s): I35.0 - Nonrheumatic aortic (valve) stenosis Status: Acute Assessment and Plan: echocardiogram done on 03/26/2019 showed EF of 55-60%, moderate pulmonary hypertension with RVSP of 50 mmHg, 2 diastolic dysfunction and moderate aortic valve stenosis with aortic valve area of 1.2 cm2 and mean gradient of 22 mmHg (5) Chronic anemia: Code(s): D64.9 - Anemia, unspecified Status: Acute Assessment and Plan: history of chronic anemia, currently hemoglobin is stable -Will continue to monitor Additional Plan discussed with patient updated with her condition and plan of care. I answered all questions. Patient is aware that she will be getting long-acting insulin along with sliding scale insulin Accu-Cheks for now. Patient will have to have her insulin pump changed or reprogrammed as per company decides. Code status: Full code Critical care time spent: 39 minutes Mink Slicer Consult Note Consult date: 04/18/19 Time Seen: 09:44 Reason for consult: hyperglycemia with borderline diabetic ketoacidosis HPI: Mine Dwyer is a 68 year old female with past medical history of insulin-dependent diabetes, hyperlipidemia, essential hypertension moderate aortic stenosis, retinopathy, mitral valve prolapse presented the ED on 04/18/2019 with hyperglycemia. Patient stated that her insulin pump not been functioning well, she has called the company and they are are supposed to be reprogramming or sending her new insulin pump . Initial anion gap was 13, also had an episode of vomiting in the ED. repeat anion gap was 9. Patient's beta hydroxybutyrate was elevated 2.07. Patient was given insulin aspart IV push in the ED x1. Patient was given 2 L of IV fluids in the ER and transferred to the ICU for further management. Upon arrival to the ICU patient anion gap had closed to 9. Insulin infusion was not started, patient was given Lantus 20 units x1 and started on high-dose sliding scale insulin with clear liquid diet. Patient denies any nausea vomiting at the time I saw her, denies any urinary symptoms, cough, shortness of breath, chest pain. Review of Systems Review of Systems: All systems re
--- NOTE | 2019-04-18 13:58 | PM.IMHP ---
H&P: HPI History of Present Illness Chief complaint: DKA Narrative: Mine Dwyer is a 68 year old female has a history of diabetes type 2. Patient was just here last month for DKA. She is stating that her pump is feeling. The patient's A1c was noted to be 6.2 this admission. Her blood sugar initially was 365 and then 294. The patient was given IV fluids. She was not started on any insulin drip. Gap was closed at 9.0. She is also complaining of having some swelling to her lower extremities she has them wrapped at all times. Venous Dopplers were negative for DVTs. The patient stated that she did not have any nausea vomiting at this time. However she changed her pump last night and her blood sugars are still running in the 300s she felt like her pump was failing in that she cannot control her blood sugars. Patient was given 8 units of aspart in the emergency room. And that was IV. Fever chills. Patient was also given Lantus 20 units x1 is started on high-dose sliding scale insulin. The patient stated that she would like to go home on insulin and use her pump. Date of service 04/18/2019 senior market intelligence consultant was notified and is only seen the patient. Review of Systems Review of Systems: All systems reviewed & are unremarkable except as noted in HPI and below Constitutional: Constitutional: Reports as per HPI and Reports no additional constitutional complaints Eyes: Eyes: Reports as per HPI and Reports no additional eye complaints ENT: Reports system reviewed and no additional complaints, except as documented and Reports Normal hearing present Cardiovascular: Cardiovascular: Reports no additional cardiovascular complaints Respiratory: Respiratory: Reports no additional respiratory complaints and Reports no additional respiratory complaints Gastrointestinal: Gastrointestinal: Reports as per HPI and Reports no additional gastrointestinal complaints Musculoskeletal: Musculoskeletal: Reports no additional musculoskeletal complaints Integumentary/Breasts: Skin/Breast: Reports system reviewed and no additional complaints, except as docu and Reports as per HPI Neurologic: Reports system reviewed and no additional complaints, except as documented, Reports as per HPI and Reports Normal hearing present Psychiatric: Psychiatric: Reports no additional psychiatric complaints and Reports as per HPI Endocrine: Endocrine: Reports no additional endocrine complaints Hematologic/Lymphatic: Hematologic/Lymphatic: Reports no additional hematologic/lymphatic complaints Allergic/Immunologic: Allergic/Immunologic: Reports no additional allergic/immunologic complaints [facility] Past Medical History Medical History Chronic anemia Chronic kidney disease, stage 3 Colon polyps Colonoscopy in August 2017 showing internal hemorrhoids. Diabetes mellitus with stage 3 chronic kidney disease, with long-term current use of insulin Hand fracture Hyperlipidemia Hypertension Mitral valve prolapse Moderate aortic stenosis By echo in 2018. Osteopenia Post-menopausal Retinopathy Type 2 diabetes mellitus with insulin therapy Surgical History Surgical History History of bilateral tubal ligation Family History Family History Mother Hypertension DVT (deep venous thrombosis) Vertigo Father Hypertension Cerebrovascular accident Sibling Graves disease Vertigo Sibling Family history of thyroid disease Family history of obesity Mother Family history of cataracts Other Family history of arthritis Family history of hearing loss Social History Social History (Updated 04/18/19 @ 14:07 by Carrie Villa NP) Social History: The patient lives in her own home in [place]. She has a parakeet that she recently rescued. She has been for approximately 2 years now. She has 3 daughters,
[2019-04-18] MEDS: hydrALAZINE HCL 20 MG/ML VIAL 10 MG IV PUSH ×2 (14:14→22:35)
[2019-04-18] MEDS: INSULIN HUMAN REGULAR (*BKC) 100 UNITS/ML IV PUSH (14:16)
[2019-04-18 14:21] LABS: Glucose Point of Care 359 (65-105)
[2019-04-18 15:16] LABS: Blood Urea Nitrogen 25 mg/dL (7-17); Calcium 7.5 mg/dL (8.4-10.2); Carbon Dioxide 24 mmol/L (22-30); Chloride 100 mmol/L (98-107); Estimated CRCL calculation 37 ml/min; Estimated Glomerular Filt Rate 41; Glucose 333 mg/dL (65-105); Potassium 3.6 mmol/L (3.4-5.0); Sodium 136 mmol/L (137-145)
[2019-04-18] MEDS: INSULIN GLARGINE (*BKC) 100 UNITS/ML 10 UNITS SUB-Q (16:51)
[2019-04-18] MEDS: ACETAMINOPHEN 325 MG TABLET 650 MG PO ×2 (17:05→22:34)
[2019-04-18 17:16] LABS: Glucose Point of Care 260 (65-105)
[2019-04-18 18:17] LABS: Blood Urea Nitrogen 26 mg/dL (7-17); Calcium 7.9 mg/dL (8.4-10.2); Carbon Dioxide 26 mmol/L (22-30); Chloride 101 mmol/L (98-107); Estimated CRCL calculation 37 ml/min; Estimated Glomerular Filt Rate 41; Glucose 184 mg/dL (65-105); Potassium 3.5 mmol/L (3.4-5.0); Sodium 136 mmol/L (137-145)
[2019-04-18] MEDS: ATORVASTATIN 40 MG TABLET PO (20:10)
[2019-04-18 22:13] LABS: Blood Urea Nitrogen 27 mg/dL (7-17); Calcium 7.5 mg/dL (8.4-10.2); Carbon Dioxide 27 mmol/L (22-30); Chloride 102 mmol/L (98-107); Estimated CRCL calculation 37 ml/min; Estimated Glomerular Filt Rate 41; Glucose 68 mg/dL (65-105); Potassium 3.5 mmol/L (3.4-5.0); Sodium 136 mmol/L (137-145)
[2019-04-18 22:27] LABS: Glucose Point of Care 58 (65-105)
[2019-04-18 22:50] LABS: Glucose Point of Care 62 (65-105)
[2019-04-18 23:21] LABS: Glucose Point of Care 53 (65-105)
[2019-04-18] MEDS: DEXTROSE 50% 25 GM/50 ML SYRINGE IV PUSH (23:26)
[2019-04-18 23:53] LABS: Glucose Point of Care 109 (65-105)
[2019-04-19] VITALS (8 sets, daily range): BP systolic 117–145; BP diastolic 46–76; PULSE 71–81; RESP 14–21; TEMP 36.6–37.1; O2SAT 93–100
[2019-04-19] MEDS: ONDANSETRON INJ 4 MG/2 ML VIAL IV PUSH ×2 (00:47→08:18)
[2019-04-19] MEDS: DEXTROSE 50% 25 GM/50 ML SYRINGE IV PUSH (01:40)
[2019-04-19 01:48] LABS: Glucose Point of Care 33 (65-105)
[2019-04-19] MEDS: DEXTROSE 5% 1,000 ML 1,000 ML 100 ML IV CONT (02:00)
[2019-04-19 02:07] LABS: Glucose Point of Care 86 (65-105)
[2019-04-19 02:38] LABS: Basophils Absolute Auto 0.1 K/mm3 (0.0-0.1); Basophils Percent Auto 0.7 % (0.2-1.2); Eosinophils Absolute Auto 0.3 K/mm3 (0-0.3); Eosinophils Percent Auto 3.2 % (0-4.4); Hematocrit 27.2 % (37.0-47.0); Hemoglobin 8.7 g/dL (12.0-15.0); Immature Granulocyte Absolute 0.02 K/mm3 (0.00-0.031); Immature Granulocyte Percent A 0.2 % (0-0.5); Lymphocytes Absolute Auto 2.22 K/mm3 (0.9-3.2); Mean Corpuscular Hemoglobin 30.2 pg (26-34); Mean Corpuscular Volume 94.4 fl (80-100); Mean Platelet Volume 11.5 fl (7.4-10.4); Monocytes Absolute Auto 1.1 K/mm3 (0.1-0.6); Monocytes Percent Auto 13.6 % (2.6-8.5); Neutrophils Absolute Auto 4.5 K/mm3 (1.3-6.7); Neutrophils Percent Auto 55.3 % (45.5-73.1); Platelet Count Result 213 k/mm3 (150-375); Red Blood Count 2.88 M/mm3 (4.2-5.4); Red Cell Distribution Width 13.5 % (11.5-14.5); White Blood Count 8.2 K/mm3 (4.5-10.0)
[2019-04-19 02:52] LABS: Blood Urea Nitrogen 25 mg/dL (7-17); Calcium 7.7 mg/dL (8.4-10.2); Carbon Dioxide 26 mmol/L (22-30); Chloride 107 mmol/L (98-107); Estimated CRCL calculation 37 ml/min; Estimated Glomerular Filt Rate 41; Glucose 83 mg/dL (65-105); Magnesium 1.9 mg/dL (1.6-2.3); Phosphorus 3.6 mg/dL (2.5-4.5); Potassium 3.3 mmol/L (3.4-5.0); Sodium 136 mmol/L (137-145)
[2019-04-19 04:11] LABS: Glucose Point of Care 90 (65-105)
[2019-04-19 06:22] LABS: Blood Urea Nitrogen 25 mg/dL (7-17); Calcium 7.4 mg/dL (8.4-10.2); Carbon Dioxide 25 mmol/L (22-30); Chloride 105 mmol/L (98-107); Estimated CRCL calculation 37 ml/min; Estimated Glomerular Filt Rate 41; Glucose 109 mg/dL (65-105); Potassium 3.8 mmol/L (3.4-5.0); Sodium 134 mmol/L (137-145)
[2019-04-19] MEDS: FLUTICASONE PROPIONATE 0.05% NA SPR 16 GM BTL (*BKC) 2 SPRAY NASAL (08:26)
[2019-04-19 09:06] LABS: Glucose Point of Care 174 (65-105)
[2019-04-19 09:06] LABS: Glucose Point of Care 106 (65-105)
[2019-04-19 09:06] LABS: Glucose Point of Care 198 (65-105)
--- NOTE | 2019-04-19 09:24 | WPDINTPN ---
Progress Note: A&P Assessment and Plan (1) DKA (diabetic ketoacidoses): Qualifiers: Diabetes mellitus complication detail: without coma Diabetes mellitus type: other specified (including LOBO) Qualified Code(s): E13.10 - Other specified diabetes mellitus with ketoacidosis without coma Code(s): E11.10 - Type 2 diabetes mellitus with ketoacidosis without coma Status: Acute Assessment and Plan: Patient presented with hyperglycemia which she checks with her Dexacom, was found to be in mild DKA. Was given insulin in the ED and upon arrival to the ICU patient's anion gap had closed. Patient was given Lantus and started on sliding scale insulin the ICU. Patient did have a drop in her blood sugars requiring D5 IV fluids. This morning sugars are better, 5 IV fluids have been discontinued - continue Lantus and sliding scale insulin - hemoglobin A1c is 6.2 this admission - will continue Accu-Cheks q.4 hours - Monitor BMP, started on IV fluids and clear liquid diet - patient is high hyperglycemic likely because of the malfunctioning for insulin pump (2) Chronic kidney disease, stage 3: Code(s): N18.3 - Chronic kidney disease, stage 3 (moderate) Status: Acute Assessment and Plan: patient history of chronic kidney disease stage III - baseline creatinine seems like 1.2-1.4 - will continue to monitor renal function, electrolytes and urine output - creatinine within baseline (3) HTN (hypertension): Qualifiers: Hypertension type: essential hypertension Qualified Code(s): I10 - Essential (primary) hypertension Code(s): I10 - Essential (primary) hypertension Status: Acute Assessment and Plan: patient takes amlodipine and Lasix at home, - will start amlodipine (4) Moderate aortic stenosis: Code(s): I35.0 - Nonrheumatic aortic (valve) stenosis Status: Acute Assessment and Plan: echocardiogram done on 03/26/2019 showed EF of 55-60%, moderate pulmonary hypertension with RVSP of 50 mmHg, 2 diastolic dysfunction and moderate aortic valve stenosis with aortic valve area of 1.2 cm2 and mean gradient of 22 mmHg (5) Chronic anemia: Code(s): D64.9 - Anemia, unspecified Status: Acute Assessment and Plan: history of chronic anemia, currently hemoglobin is stable -Will continue to monitor (6) Hyperlipidemia: Qualifiers: Hyperlipidemia type: unspecified Qualified Code(s): E78.5 - Hyperlipidemia, unspecified Code(s): E78.5 - Hyperlipidemia, unspecified Status: Acute Assessment and Plan: will restart statin Additional Plan discussed with patient updated with her condition and plan of care. I answered all questions. Code status: Full code Critical care time spent: 31 minutes Subjective Date/time seen: REASON FOR CONSULT: Hyperglycemia with diabetic ketoacidosis 04/19/2019: Patient seen and examined the ICU. Has had some nausea early this morning. Blood sugars have been low last night, was started on D5 IV fluids with improvement in blood sugars. This morning blood sugars are in the 200s, will hold D5. patient denies any chest pain, shortness of breath, vomiting, diarrhea. WBC count has normalized. CO2 is 25, anion gap of 4 Review of Systems Review of Systems: All systems reviewed & are unremarkable except as noted in HPI and below Exam Const: General: comfortable and no acute distress HENMT: Mouth: Yes moist mucous membranes Eyes: Sclera: sclerae normal Pupils: Equal, round and reactive pupils present Neck: Neck: supple and no JVD Resp: Effort & Inspection: normal respiratory effort Auscultation: clear to auscultation bilaterally Cardio: Rate: regular rate Rhythm: regular rhythm GI: Inspection: non-distended GI Palp: Yes Soft to palpation and No Tenderness to palpation present (GI) Auscultation: normal bowel sounds : Other: Deferred Skin: Gene
[2019-04-19] MEDS: INSULIN ASPART (*BKC) 100 UNITS/ML SUB-Q (10:33)
[2019-04-19] MEDS: INSULIN GLARGINE (*BKC) 100 UNITS/ML 15 UNITS SUB-Q (10:33)
[2019-04-19 10:41] LABS: Glucose Point of Care 241 (65-105)
[2019-04-19 10:57] LABS: Blood Urea Nitrogen 25 mg/dL (7-17); Calcium 7.8 mg/dL (8.4-10.2); Carbon Dioxide 20 mmol/L (22-30); Chloride 104 mmol/L (98-107); Estimated CRCL calculation 34 ml/min; Estimated Glomerular Filt Rate 37; Glucose 242 mg/dL (65-105); Potassium 3.9 mmol/L (3.4-5.0); Sodium 133 mmol/L (137-145)
[2019-04-19] MEDS: AMLODIPINE BESYLATE 5 MG TABLET 10 MG PO (12:57)
[2019-04-19 12:58] LABS: Glucose Point of Care 185 (65-105)
--- NOTE | 2019-04-19 14:20 | PCDIET ---
This patient, Mine Dwyer, was received from ICU 7 on 04/19/19 at 1420. Personal belongings list checked and signed. Patient/family oriented to unit policies and routines
[2019-04-19] MEDS: ASPIRIN 81 MG CHEWABLE TABLET PO (18:48)
[2019-04-19 19:06] LABS: Glucose Point of Care 163 (65-105)
[2019-04-19] MEDS: ATORVASTATIN 40 MG TABLET PO (20:20)
[2019-04-19] MEDS: ACETAMINOPHEN 325 MG TABLET 650 MG PO (20:20)
[2019-04-19 21:11] LABS: Glucose Point of Care 213 (65-105)
[2019-04-19 23:56] LABS: Glucose Point of Care 218 (65-105)
[2019-04-20 06:26] VITALS: BP 162/62; PULSE 81; RESP 16; TEMP 36.4; O2SAT 99
[2019-04-20] MEDS: FLUTICASONE PROPIONATE 0.05% NA SPR 16 GM BTL (*BKC) 2 SPRAY NASAL (09:08)
[2019-04-20] MEDS: AMLODIPINE BESYLATE 5 MG TABLET 10 MG PO (09:08)
[2019-04-20 09:40] LABS: Hematocrit 31.2 % (37.0-47.0); Hemoglobin 9.9 g/dL (12.0-15.0); Mean Corpuscular HGB Conc 31.7 g/dl (32-36); Mean Corpuscular Hemoglobin 30.5 pg (26-34); Mean Platelet Volume 11.7 fl (7.4-10.4); Platelet Count Result 210 k/mm3 (150-375); Red Blood Count 3.25 M/mm3 (4.2-5.4); Red Cell Distribution Width 13.6 % (11.5-14.5); White Blood Count 7.1 K/mm3 (4.5-10.0)
[2019-04-20 09:48] LABS: Blood Urea Nitrogen 23 mg/dL (7-17); Calcium 8.1 mg/dL (8.4-10.2); Carbon Dioxide 22 mmol/L (22-30); Chloride 104 mmol/L (98-107); Estimated CRCL calculation 35 ml/min; Estimated Glomerular Filt Rate 37; Glucose 138 mg/dL (65-105); Magnesium 2.1 mg/dL (1.6-2.3); Potassium 3.8 mmol/L (3.4-5.0); Sodium 136 mmol/L (137-145)
[2019-04-20 11:08] LABS: Glucose Point of Care 140 (65-105)
[2019-04-20] MEDS: INSULIN GLARGINE (*BKC) 100 UNITS/ML 8 UNITS SUB-Q (12:52)
[2019-04-20] MEDS: INSULIN ASPART (*BKC) 100 UNITS/ML SUB-Q ×2 (12:53→17:41)
[2019-04-20 13:04] LABS: Glucose Point of Care 219 (65-105)
[2019-04-20 14:00] VITALS: BP 172/60; PULSE 91; RESP 18; TEMP 36.4; O2SAT 100
--- NOTE | 2019-04-20 14:16 | PM.IMPN ---
Progress Note: A&P Assessment and Plan (1) DKA (diabetic ketoacidosis): Qualifiers: Diabetes mellitus complication detail: without coma Diabetes mellitus type: type 2 Qualified Code(s): E11.10 - Type 2 diabetes mellitus with ketoacidosis without coma Code(s): E11.10 - Type 2 diabetes mellitus with ketoacidosis without coma Status: Acute Assessment and Plan: Patient's A1c 6.2. Last anion gap was closed at 9. Initially it had been 13 in the emergency room. She was given IV insulin aspart x1. She started on a high dose sliding scale as well as Lantus. I did have to give her an extra dose of NovoLog IV due to her blood sugars being in the 300s. I believe this is probably because it is just postprandial. Her blood sugars remain high. May have to consider starting an insulin drip. Patient stated that her insulin pump failed her. So she will want to go home on insulin most likely a sliding scale and Lantus. She said she has done this in the past. test engineer nuclear equipment has been consulted. BMP series has been ordered. 04/20/19 14:16 Patient is 68-year-old female presented emergency department with hyperglycemia patient was in DKA and was transferred to ICU patient was hydrated started insulin drip in her anion close now patient is on Lantus and sliding scale, was transferred out of ICU on 04/18, however her sugar were running hypoglycemic and Lantus was on hold, currently her blood sugars a and 200, patient denies any complaints of abdominal pain nausea or vomiting or dizziness, the main reason patient was admitted with DKA as her insulin pump was mild functioning, after discussing with the patient see has decided to not resume her insulin pump and would like to be started on Lantus and sliding scale with with carb count, we have agreed start the patient on 8 units of Lantus daily and monitor with sliding scale if she remains clinically stable blood sugar remains stable will discharge the patient home tomorrow on this regimen patient will follow-up with her certified hyperbaric technologist and primary care doctor as soon as possible (2) Hyperlipidemia: Qualifiers: Hyperlipidemia type: unspecified Qualified Code(s): E78.5 - Hyperlipidemia, unspecified Code(s): E78.5 - Hyperlipidemia, unspecified Status: Acute Assessment and Plan: Continue with atorvastatin. (3) HTN (hypertension): Qualifiers: Hypertension type: essential hypertension Qualified Code(s): I10 - Essential (primary) hypertension Code(s): I10 - Essential (primary) hypertension Status: Acute Assessment and Plan: Hold patient's Norvasc for now. This may be the cause of her peripheral edema. Hold her Lasix for now. Continue with p.r.n. hydralazine. (4) Chronic kidney disease, stage 3: Code(s): N18.3 - Chronic kidney disease, stage 3 (moderate) Status: Acute Assessment and Plan: Creatinine is 1.4 and is around baseline. Continue to monitor. (5) Chronic anemia: Code(s): D64.9 - Anemia, unspecified Status: Acute Assessment and Plan: At baseline. I met sure she has had a previous workup. However stable and it is normal sedated it looks like in the past as macrocytic (6) Moderate aortic stenosis: Code(s): I35.0 - Nonrheumatic aortic (valve) stenosis Status: Acute Assessment and Plan: echocardiogram done on 03/26/2019 showed EF of 55-60%, moderate pulmonary hypertension with RVSP of 50 mmHg, 2 diastolic dysfunction and moderate aortic valve stenosis with aortic valve area of 1.2 cm2 and mean gradient of 22 mmHg Subjective Date/time seen: 04/20/19 14:16 Patient is 68-year-old female presented emergency department with hyperglycemia patient was in DKA and was transferred to ICU patient was hydrated started insulin drip in her anion close now patient is on Lantus and sliding scale, was transferred out of ICU on 04/18, however her sugar were running hypoglycemi
[2019-04-20 15:51] VITALS: BP 152/64
[2019-04-20 16:00] VITALS: BMI 35.2
[2019-04-20] MEDS: ASPIRIN 81 MG CHEWABLE TABLET PO (17:30)
--- NOTE | 2019-04-20 17:31 | PC.NURSE ---
Called pharmacy to clarify insulin orders for sliding scale and 4 units of Novolog with each meal. Per pharmacy place order for one time dose of 4 units of Novolog.
[2019-04-20 18:26] LABS: Glucose Point of Care 174 (65-105)
[2019-04-20] MEDS: ATORVASTATIN 40 MG TABLET PO (20:16)
[2019-04-20 20:45] LABS: Glucose Point of Care 115 (65-105)
[2019-04-20 22:00] VITALS: BP 165/69; PULSE 86; RESP 20; TEMP 37.1; O2SAT 100
[2019-04-21 05:55] LABS: Blood Urea Nitrogen 23 mg/dL (7-17); Calcium 7.9 mg/dL (8.4-10.2); Carbon Dioxide 29 mmol/L (22-30); Chloride 106 mmol/L (98-107); Estimated CRCL calculation 38 ml/min; Estimated Glomerular Filt Rate 41; Glucose 136 mg/dL (65-105); Potassium 4.2 mmol/L (3.4-5.0); Sodium 135 mmol/L (137-145)
[2019-04-21 06:00] VITALS: BP 151/50; PULSE 80; RESP 20; TEMP 36.8; O2SAT 99
[2019-04-21 07:20] LABS: Glucose Point of Care 190 (65-105)
[2019-04-21] MEDS: INSULIN ASPART (*BKC) 100 UNITS/ML SUB-Q ×2 (08:17→13:03)
[2019-04-21] MEDS: INSULIN GLARGINE (*BKC) 100 UNITS/ML 8 UNITS SUB-Q (08:17)
[2019-04-21] MEDS: AMLODIPINE BESYLATE 5 MG TABLET 10 MG PO (08:18)
[2019-04-21] MEDS: FLUTICASONE PROPIONATE 0.05% NA SPR 16 GM BTL (*BKC) 2 SPRAY NASAL (08:18)
[2019-04-21 13:03] LABS: Glucose Point of Care 191 (65-105)
--- NOTE | 2019-04-21 13:17 | PM.DS ---
DS: Diagnosis Admitting Diagnosis Admitting Diagnosis: Other specified diabetes mellitus with ketoacidosis without coma Discharge Diagnosis (1) DKA (diabetic ketoacidosis): Qualifiers: Diabetes mellitus complication detail: without coma Diabetes mellitus type: type 2 Qualified Code(s): E11.10 - Type 2 diabetes mellitus with ketoacidosis without coma Code(s): E11.10 - Type 2 diabetes mellitus with ketoacidosis without coma Status: Acute Assessment and Plan: Patient's A1c 6.2. Last anion gap was closed at 9. Initially it had been 13 in the emergency room. She was given IV insulin aspart x1. She started on a high dose sliding scale as well as Lantus. I did have to give her an extra dose of NovoLog IV due to her blood sugars being in the 300s. I believe this is probably because it is just postprandial. Her blood sugars remain high. May have to consider starting an insulin drip. Patient stated that her insulin pump failed her. So she will want to go home on insulin most likely a sliding scale and Lantus. She said she has done this in the past. childbirth educator has been consulted. BMP series has been ordered. 04/20/19 14:16 Patient is 68-year-old female presented emergency department with hyperglycemia patient was in DKA and was transferred to ICU patient was hydrated started insulin drip in her anion close now patient is on Lantus and sliding scale, was transferred out of ICU on 04/18, however her sugar were running hypoglycemic and Lantus was on hold, currently her blood sugars a and 200, patient denies any complaints of abdominal pain nausea or vomiting or dizziness, the main reason patient was admitted with DKA as her insulin pump was mild functioning, after discussing with the patient see has decided to not resume her insulin pump and would like to be started on Lantus and sliding scale with with carb count, we have agreed start the patient on 8 units of Lantus daily and monitor with sliding scale if she remains clinically stable blood sugar remains stable will discharge the patient home tomorrow on this regimen patient will follow-up with her maintenance scheduler and primary care doctor as soon as possible (2) Hyperlipidemia: Qualifiers: Hyperlipidemia type: unspecified Qualified Code(s): E78.5 - Hyperlipidemia, unspecified Code(s): E78.5 - Hyperlipidemia, unspecified Status: Acute Assessment and Plan: Continue with atorvastatin. (3) HTN (hypertension): Qualifiers: Hypertension type: essential hypertension Qualified Code(s): I10 - Essential (primary) hypertension Code(s): I10 - Essential (primary) hypertension Status: Acute Assessment and Plan: Hold patient's Norvasc for now. This may be the cause of her peripheral edema. Hold her Lasix for now. Continue with p.r.n. hydralazine. (4) Chronic kidney disease, stage 3: Code(s): N18.3 - Chronic kidney disease, stage 3 (moderate) Status: Acute Assessment and Plan: Creatinine is 1.4 and is around baseline. Continue to monitor. (5) Chronic anemia: Code(s): D64.9 - Anemia, unspecified Status: Acute Assessment and Plan: At baseline. I met sure she has had a previous workup. However stable and it is normal sedated it looks like in the past as macrocytic (6) Moderate aortic stenosis: Code(s): I35.0 - Nonrheumatic aortic (valve) stenosis Status: Acute Assessment and Plan: echocardiogram done on 03/26/2019 showed EF of 55-60%, moderate pulmonary hypertension with RVSP of 50 mmHg, 2 diastolic dysfunction and moderate aortic valve stenosis with aortic valve area of 1.2 cm2 and mean gradient of 22 mmHg DS: Summary Hospital Course Reason for hospitalization: Mine Dwyer is a 68 year old female with insulin-dependent type 2 diabetes mellitus who presented to the emergency department earlier this evening from home for evaluation of hyperglycemia
== END 2019-04-21 15:27 | disposition home or self-care (01) ==
LOC: ANHED 08:42 → ANHICU 09:07 → ANH2MED 04-19 14:34
PROVIDERS: Internal Medicine; Nurse Practitioner; Admitting Provider Family Medicine; Emergency Provider Emergency Medicine; PCP Family Medicine; Visit Provider Family Medicine
DX: E11.10 Type 2 diabetes mellitus with ketoacidosis without coma (principal); E11.22 Type 2 diabetes mellitus with diabetic chronic kidney disease; E11.319 Type 2 diabetes mellitus with unspecified diabetic retinopathy without macular edema; I12.9 Hypertensive chronic kidney disease with stage 1 through stage 4 chronic kidney disease, or unspecified chronic kidney disease; N18.3 Chronic kidney disease, stage 3 (moderate); E78.5 Hyperlipidemia, unspecified; D64.9 Anemia, unspecified; I35.0 Nonrheumatic aortic (valve) stenosis; I34.1 Nonrheumatic mitral (valve) prolapse; I27.20 Pulmonary hypertension, unspecified; M85.80 Other specified disorders of bone density and structure, unspecified site; Z78.0 Asymptomatic menopausal state; Z79.4 Long term (current) use of insulin; Z96.41 Presence of insulin pump (external) (internal); Z79.82 Long term (current) use of aspirin; Z79.899 Other long term (current) drug therapy; Z86.010 Personal history of colon polyps
CPT/HCPCS: 36415; 80048; 80053; 81001; 82010; 83036; 83735; 84100; 85025; 85027; 87081; 96361; 96365; 96366; 96374; 96375; 96376; 99291; A9270; G0378; J0360; J1815; J2405; J7030; J7070

== ENCOUNTER 2019-04-23 10:13 | Observation (INO) | payer OTHER, SELFPAY ==
[2019-04-23] VITALS (9 sets, daily range): BP systolic 159–205; BP diastolic 56–67; PULSE 80–93; RESP 16–20; TEMP 36.8–37.3; O2SAT 96–100; BMI 34.1
--- NOTE | ~2019-04-23 | XR_ITS ---
XR chest 2V 04/23/2019 11:27 Indication: Shortness of breath Procedure: 2 view chest Comparison: Comparison to multiple prior studies sequentially, with oldest reviewed study dated 06/26. Findings: Cardiomegaly. Bibasilar atelectasis. Blunting lateral costophrenic recess is, likely pleura l thickening versus small effusions. No focal pneumonia, edema or pneumothorax. Impression: 1: Bibasilar atelectasis. 2: Cardiomegaly. Reviewed, dictated and finalized at location A. Impression: 1: Bibasilar atelectasis. 2: Cardiomegaly.
--- NOTE | ~2019-04-23 | CT_ITS ---
EXAMINATION: CT brain wo con DATE: 04/23/2019 13:28 INDICATION: Dizziness. TECHNIQUE: Computed tomography (CT) of the head was performed without intravenous contrast. The mA wa s adjusted according to patient size. Iterative reconstruction technique was employed. The dose-lengt h product was 605.33 mGy-cm. COMPARISON: Head CT 12/29/2018 FINDINGS: There is an old infarct in left cerebellum. There is an old infarct in left frontal lobe. T here are scattered areas of low attenuation in the cerebral white matter. There is no intracranial he morrhage, acute infarction, or abnormal intracranial mass lesion. The ventricles are normal in size. The orbits are normal. The paranasal sinuses are clear. The mastoid air cells are normal. IMPRESSION: 1. 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 2. Worsened moderate nonspecific cerebral white matter disease, which likely represents chronic small vessel ischemic disease. Reviewed, dictated and finalized at location A. IMPRESSION: 1. 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 2. Worsened moderate nonspecific cerebral white matter disease, which likely re presents chronic small vessel ischemic disease.
--- NOTE | 2019-04-23 10:21 | ECG_ITS ---
Measurements Intervals [place] Rate: 72 P: 10 W[place]: 169 QRS: 23 QRSD: 136 T: 17 QT: 398 QTc: 438 Interpretive Statements SINUS RHYTHM RIGHT BUNDLE BRANCH BLOCK BASELINE WANDER- II, III, AVR, AVL, AVF ABNORMAL ECG Electronically Signed On 04-23-2019 10:42:04 CDT by Levon Azevedo D.O.
[2019-04-23 10:48] LABS: Basophils Absolute Auto 0.1 K/mm3 (0.0-0.1); Basophils Percent Auto 0.8 % (0.2-1.2); Eosinophils Absolute Auto 0.2 K/mm3 (0-0.3); Eosinophils Percent Auto 1.6 % (0-4.4); Hematocrit 31.5 % (37.0-47.0); Immature Granulocyte Absolute 0.03 K/mm3 (0.00-0.031); Immature Granulocyte Percent A 0.3 % (0-0.5); Lymphocytes Absolute Auto 1.46 K/mm3 (0.9-3.2); Lymphocytes Percent Auto 15.5 % (18.3-44.2); Mean Corpuscular HGB Conc 31.7 g/dl (32-36); Mean Corpuscular Hemoglobin 30.3 pg (26-34); Mean Corpuscular Volume 95.5 fl (80-100); Monocytes Absolute Auto 0.8 K/mm3 (0.1-0.6); Neutrophils Percent Auto 73.8 % (45.5-73.1); Platelet Count Result 249 k/mm3 (150-375); Red Cell Distribution Width 13.5 % (11.5-14.5); White Blood Count 9.4 K/mm3 (4.5-10.0)
[2019-04-23 11:00] LABS: Blood Urea Nitrogen 24 mg/dL (7-17); Calcium 8.8 mg/dL (8.4-10.2); Carbon Dioxide 24 mmol/L (22-30); Chloride 102 mmol/L (98-107); Estimated CRCL calculation 39 ml/min; Estimated Glomerular Filt Rate 45; Glucose 230 mg/dL (65-105); Sodium 135 mmol/L (137-145)
--- NOTE | 2019-04-23 12:55 | ED.SOB ---
HPI - SOB/Dyspnea General Chief Complaint: Shortness of Breath/Dyspnea Stated Complaint: Sob Time Seen by Provider: 04/23/19 12:54 Source: patient Mode of arrival: ambulatory Limitations: no limitations History of Present Illness HPI Narrative: Pt is a 68 y/o female who presents to the ED with c/o SOB that started this morning. Pt states that she feels like she needs to take a deep breath and her head feels foggy. She says her head feels blocked up and she was dizzy when she got up this morning. Pt denies having problems with her speech, difficulty moving any extremities, N/V, or dizziness while laying down. Pt is not SOB in the ED bed. She was recently in the hospital for high BS and is now on insulin. Pt's family states that she was in the ED in December with the same Sx. MD elicited complaint: shortness of breath Onset (ago): hour(s) (this morning) Timing: now resolved Associated symptoms: other (dizziness, head foggy) Related Data Home Medications Medication Instructions Recorded Confirmed amlodipine 10 mg PO QAM 12/29/18 04/18/19 aspirin 81 mg PO QPM 12/29/18 04/18/19 atorvastatin 40 mg PO QPM 12/29/18 04/18/19 metoprolol tartrate 100 mg PO BID 12/29/18 04/18/19 multivitamin 1 cap PO QAM 12/29/18 04/18/19 alendronate 70 mg PO WEEKLY 03/25/19 04/18/19 Ocuvite with Lutein 1 tablet PO DAILY 04/18/19 04/18/19 calcium carbonate-vitamin D3 1 tablet PO DAILY 04/18/19 04/18/19 cinnamon bark 350 mg PO DAILY 04/18/19 04/18/19 cyclobenzaprine 10 mg PO TID PRN 04/18/19 04/18/19 fluticasone propionate 2 spray INTRANASAL DAILY 04/18/19 04/18/19 furosemide [Lasix] 20 mg PO DAILY 04/18/19 04/18/19 insulin aspart U-100 [Novolog 1 sliding scale dose SUBCUT 04/18/19 04/18/19 U-100 Insulin aspart] USEASDIRECTD insulin pump controller [Omnipod 04/18/19 04/18/19 Dash PDM Kit] Allergies Allergy/AdvReac Type Severity Reaction Status Date / Time hydrocodone [From [place]] Allergy Vomiting Verified 04/19/19 13:11 tramadol AdvReac Severe NAUSEA Verified 04/18/19 08:10 codeine AdvReac Intermediate MAKES HER Verified 04/18/19 08:10 FEEL BAD Review of Systems Review of Systems: All systems reviewed & are unremarkable except as noted in HPI and below Respiratory: Respiratory: Reports dyspnea Gastrointestinal: Gastrointestinal: Denies nausea and Denies vomiting Neurologic: Denies Abnormal speech present, Reports dizziness, Denies weakness (difficulty moving extremities) and Reports other (head is foggy and blocked up ) FOR[facility]LY [facility] Past Medical History Medical History Chronic anemia Chronic kidney disease, stage 3 Colon polyps Colonoscopy in August 2017 showing internal hemorrhoids. Diabetes mellitus with stage 3 chronic kidney disease, with long-term current use of insulin Hand fracture Hyperlipidemia Hypertension Mitral valve prolapse Moderate aortic stenosis By echo in 2018. Osteopenia Post-menopausal Retinopathy Type 2 diabetes mellitus with insulin therapy Surgical History Surgical History History of bilateral tubal ligation Social History Social History Social History: The patient lives in her own home in [place]. She has a parakeet that she recently rescued. She has been for approximately 2 years now. She has 3 daughters, and designates them as her surrogate decision makers. She wishes to be a full code. She denies alcohol, tobacco, and drug use. She is and does not have a power ip technology transactions attorney. Smoking status: Never smoker Second hand tobacco smoke exposure: No Additional smoking assessment comments: AND FATHER SMOKED Alcohol intake: never Substance use: never Gender identity (if verbalized by the patient): Female Spiritual care concerns: No Agree to blood products: Yes Exam Narrative: Exam Narrative: APPEARANCE: No acute dis
--- NOTE | 2019-04-23 13:39 | PC.NURSE ---
called lab to add-on orders for blood that was already sent by triage
[2019-04-23] MEDS: SODIUM CHLORIDE 0.9% IV 1,000 ML 999 ML IV CONT (13:52)
[2019-04-23 13:56] LABS: INR 0.9; Prothrombin Time 12.2 Seconds (11.1-14.7)
[2019-04-23 13:57] LABS: Partial Thromboplastin Time 27.9 SECONDS (22.3-36.8)
[2019-04-23 14:21] LABS: Troponin I 0.033 ng/mL (0.000-0.034)
[2019-04-23 14:24] LABS: Add Urine Microscopic? YES; Appearance Urine Clear (Clear); Bilirubin Urine Negative (Negative); Blood Urine 1+ (Negative); Color Urine Colorless (Yellow); Glucose Urine UA Negative (Negative); Ketones Urine Trace mg/dL (Negative); Leukocyte Esterase Ur Negative LEU/UL (Negative); Mucus Urine Rare /lpf; Nitrate Urine Negative (Negative); Protein Urine 2+ mg/dL (Negative); RBC Urine 0-2 /hpf (0-2); Specific Grav Ur 1.008 (1.001-1.035); Urobilinogen Urine Negative mg/dL (<2.0)
[2019-04-23 15:28] LABS: NT Pro B Type Natriuretic Pept 9330 PG/ML (5-100)
[2019-04-23] MEDS: FUROSEMIDE INJ 40 MG/4 ML VIAL 20 MG IV PUSH (16:23)
--- NOTE | 2019-04-23 17:20 | PC.NURSE ---
bed assignment received from floor
--- NOTE | 2019-04-23 18:20 | PC.NURSE ---
family noting pts glucose is trending high. accu check 288. verbal orders received for regular insulin 4 units sq.
[2019-04-23] MEDS: INSULIN HUMAN REGULAR (*BKC) 100 UNITS/ML IV PUSH (18:25)
[2019-04-23 18:41] LABS: Glucose Point of Care 288 (65-105)
--- NOTE | 2019-04-23 18:42 | PC.NURSE ---
This patient, Mine Dwyer, was admitted to Medical Room 342-01. Patient/family oriented to hospital policies and general routines including ID bracelet, bed and alarms, visiting hours, pain management, procedures, bathroom and other care routines, personal items, smoking policy, room service/diet, and visiting hours. Valuables list has been completed. Information on how to activate the Rapid Response Team has been discussed. Patient/Family are encouraged to report perceived risks to care and to ask questions if they do not understand what they are told or what they should do.
[2019-04-23 21:01] LABS: Troponin I 0.039 ng/mL (0.000-0.034)
[2019-04-23 23:21] LABS: Glucose Point of Care 252 (65-105)
[2019-04-23 23:52] LABS: Troponin I 0.041 ng/mL (0.000-0.034)
[2019-04-24] VITALS (10 sets, daily range): BP systolic 152–160; BP diastolic 53–78; PULSE 67–89; RESP 16–18; TEMP 36.7–37.2; O2SAT 96–100
[2019-04-24 03:11] LABS: Glucose Point of Care 320 (65-105)
[2019-04-24] MEDS: INSULIN ASPART (*BKC) 100 UNITS/ML 6 UNITS SUB-Q (04:36)
[2019-04-24 06:12] LABS: Basophils Absolute Auto 0.1 K/mm3 (0.0-0.1); Eosinophils Absolute Auto 0.1 K/mm3 (0-0.3); Eosinophils Percent Auto 1.4 % (0-4.4); Hematocrit 26.1 % (37.0-47.0); Hemoglobin 8.1 g/dL (12.0-15.0); Immature Granulocyte Absolute 0.01 K/mm3 (0.00-0.031); Immature Granulocyte Percent A 0.1 % (0-0.5); Lymphocytes Absolute Auto 0.95 K/mm3 (0.9-3.2); Lymphocytes Percent Auto 13.7 % (18.3-44.2); Mean Corpuscular Hemoglobin 29.9 pg (26-34); Mean Corpuscular Volume 96.3 fl (80-100); Mean Platelet Volume 11.3 fl (7.4-10.4); Monocytes Absolute Auto 0.6 K/mm3 (0.1-0.6); Monocytes Percent Auto 8.2 % (2.6-8.5); Neutrophils Absolute Auto 5.3 K/mm3 (1.3-6.7); Neutrophils Percent Auto 75.6 % (45.5-73.1); Platelet Count Result 217 k/mm3 (150-375); Red Blood Count 2.71 M/mm3 (4.2-5.4); Red Cell Distribution Width 13.7 % (11.5-14.5)
[2019-04-24 06:15] LABS: Blood Urea Nitrogen 24 mg/dL (7-17); Calcium 7.9 mg/dL (8.4-10.2); Carbon Dioxide 19 mmol/L (22-30); Chloride 104 mmol/L (98-107); Estimated CRCL calculation 37 ml/min; Estimated Glomerular Filt Rate 41; Glucose 307 mg/dL (65-105); Potassium 3.9 mmol/L (3.4-5.0); Sodium 133 mmol/L (137-145)
[2019-04-24 08:25] LABS: Glucose Point of Care 226 (65-105)
[2019-04-24] MEDS: FUROSEMIDE 40 MG TABLET PO (08:37)
[2019-04-24] MEDS: METOPROLOL TARTRATE 50 MG TAB 100 MG PO ×2 (08:37→17:30)
[2019-04-24] MEDS: OPTI-GEN TAB 1 TABLET PO (08:37)
[2019-04-24] MEDS: AMLODIPINE BESYLATE 5 MG TABLET 10 MG PO (08:37)
[2019-04-24] MEDS: FLUTICASONE PROPIONATE 0.05% NA SPR 16 GM BTL (*BKC) 2 SPRAY NASAL (08:38)
[2019-04-24] MEDS: INSULIN GLARGINE (*BKC) 100 UNITS/ML 12 UNITS SUB-Q (08:40)
[2019-04-24] MEDS: INSULIN ASPART (*BKC) 100 UNITS/ML SUB-Q ×2 (08:41→22:57)
[2019-04-24] MEDS: ALENDRONATE SODIUM 70 MG TABLET PO (11:10)
[2019-04-24 13:06] LABS: Glucose Point of Care 152 (65-105)
--- NOTE | 2019-04-24 16:59 | PM.IMHP ---
H&P: HPI History of Present Illness Chief complaint: CHF, Metabolic encephalopathy deficiency Narrative: Mine Dwyer is a 68 year old female Patient is 68-year-old female with history of type 1 diabetes patient was just discharged last week at that time it was decided the patient will stop using her insulin pump and and will use Lantus as recommended by her stone mill operator 12 units daily and do the carb count and sliding scale, patient states he was doing reasonably well with her blood sugars however yesterday patient felt short of breath her symptoms were getting progressively patient does have history grade 2 diastolic dysfunction patient was brought to the emergency department further evaluation patient chest x-ray did not show significant pulmonary edema however patient has extremity edema elevated BNP of 9000 and cardiomegaly on chest x-ray, will gently diurese the patient and monitor Review of Systems Review of Systems: All systems reviewed & are unremarkable except as noted in HPI and below PMFSH Past Medical History Medical History Chronic anemia Chronic kidney disease, stage 3 Colon polyps Colonoscopy in August 2017 showing internal hemorrhoids. Diabetes mellitus with stage 3 chronic kidney disease, with long-term current use of insulin Hand fracture Hyperlipidemia Hypertension Mitral valve prolapse Moderate aortic stenosis By echo in 2018. Osteopenia Post-menopausal Retinopathy Type 2 diabetes mellitus with insulin therapy Surgical History Surgical History History of bilateral tubal ligation Social History Social History Social History: The patient lives in her own home in [place]. She has a parakeet that she recently rescued. She has been for approximately 2 years now. She has 3 daughters, and designates them as her surrogate decision makers. She wishes to be a full code. She denies alcohol, tobacco, and drug use. She is and does not have a power estate attorney. Smoking status: Never smoker Second hand tobacco smoke exposure: No Additional smoking assessment comments: AND FATHER SMOKED Alcohol intake: never Substance use: never Gender identity (if verbalized by the patient): Female Spiritual care concerns: No Agree to blood products: Yes Meds Home Medications and Allergies Home Medications Medication Instructions Recorded Confirmed Type amlodipine 10 mg PO QAM 12/29/18 04/23/19 History aspirin 81 mg PO QPM 12/29/18 04/23/19 History atorvastatin 40 mg PO QPM 12/29/18 04/23/19 History metoprolol tartrate 100 mg PO BID 12/29/18 04/23/19 History multivitamin 1 cap PO QAM 12/29/18 04/23/19 History alendronate 70 mg PO WEEKLY 03/25/19 04/23/19 History Ocuvite with Lutein 1 tablet PO DAILY 04/18/19 04/23/19 History calcium carbonate-vitamin D3 1 tablet PO DAILY 04/18/19 04/23/19 History cinnamon bark 350 mg PO DAILY 04/18/19 04/23/19 History cyclobenzaprine 10 mg PO TID PRN 04/18/19 04/23/19 History fluticasone propionate 2 spray INTRANASAL DAILY 04/18/19 04/23/19 History furosemide [Lasix] 40 mg PO DAILY 04/18/19 04/23/19 History insulin aspart U-100 [Novolog 1 sliding scale dose SUBCUT 04/18/19 04/23/19 History U-100 Insulin aspart] USEASDIRECTD insulin aspart U-100 [Novolog See Protocol SUBCUT TIDWM ml 04/21/19 04/23/19 Rx U-100 Insulin aspart] insulin glargine [Lantus U-100 12 units SUBCUT DAILY 04/23/19 04/23/19 History Insulin] Allergies Allergy/AdvReac Type Severity Reaction Status Date / Time hydrocodone [From [place]] Allergy Vomiting Verified 04/19/19 13:11 tramadol AdvReac Severe NAUSEA Verified 04/18/19 08:10 codeine AdvReac Intermediate MAKES HER Verified 04/18/19 08:10 FEEL BAD Vital Signs Vital Signs - 24 hr 04/23/19 17:00 04/23/19 18:35 04/23/19 19:04 Temperature 98.2 F
[2019-04-24] MEDS: ATORVASTATIN 40 MG TABLET PO (17:30)
[2019-04-24] MEDS: ASPIRIN 81 MG CHEWABLE TABLET PO (17:30)
[2019-04-24 18:09] LABS: Glucose Point of Care 123 (65-105)
[2019-04-24 22:39] LABS: Glucose Point of Care 283 (65-105)
[2019-04-25] VITALS: PULSE 61
[2019-04-25 03:10] LABS: Glucose Point of Care 226 (65-105)
[2019-04-25 04:00] VITALS: PULSE 57
[2019-04-25 05:29] VITALS: BP 165/59; PULSE 63; RESP 16; TEMP 36.5; O2SAT 96
[2019-04-25 05:54] LABS: Hematocrit 24.3 % (37.0-47.0); Mean Corpuscular HGB Conc 32.9 g/dl (32-36); Mean Corpuscular Hemoglobin 30.9 pg (26-34); Mean Corpuscular Volume 93.8 fl (80-100); Mean Platelet Volume 11.4 fl (7.4-10.4); Platelet Count Result 210 k/mm3 (150-375); Red Blood Count 2.59 M/mm3 (4.2-5.4); Red Cell Distribution Width 13.5 % (11.5-14.5); White Blood Count 7.1 K/mm3 (4.5-10.0)
[2019-04-25 06:20] LABS: Blood Urea Nitrogen 25 mg/dL (7-17); Calcium 7.9 mg/dL (8.4-10.2); Carbon Dioxide 25 mmol/L (22-30); Chloride 102 mmol/L (98-107); Estimated CRCL calculation 37 ml/min; Estimated Glomerular Filt Rate 41; Glucose 255 mg/dL (65-105); Potassium 3.8 mmol/L (3.4-5.0); Sodium 131 mmol/L (137-145)
[2019-04-25 08:00] VITALS: PULSE 75
[2019-04-25] MEDS: FLUTICASONE PROPIONATE 0.05% NA SPR 16 GM BTL (*BKC) 2 SPRAY NASAL (08:24)
[2019-04-25 08:25] VITALS: PULSE 72
[2019-04-25] MEDS: AMLODIPINE BESYLATE 5 MG TABLET 10 MG PO (08:25)
[2019-04-25] MEDS: METOPROLOL TARTRATE 50 MG TAB 100 MG PO (08:25)
[2019-04-25] MEDS: OPTI-GEN TAB 1 TABLET PO (08:25)
[2019-04-25] MEDS: FUROSEMIDE INJ 40 MG/4 ML VIAL 20 MG IV PUSH ×2 (08:27→11:21)
[2019-04-25 08:36] VITALS: PULSE 72; RESP 16; O2SAT 96
[2019-04-25 08:36] LABS: Glucose Point of Care 367 (65-105)
[2019-04-25] MEDS: INSULIN GLARGINE (*BKC) 100 UNITS/ML 12 UNITS SUB-Q (08:36)
[2019-04-25] MEDS: INSULIN ASPART (*BKC) 100 UNITS/ML SUB-Q ×2 (08:36→12:24)
--- NOTE | 2019-04-25 09:57 | PM.DS ---
DS: Diagnosis Admitting Diagnosis Admitting Diagnosis: Acute on chronic diastolic (congestive) heart failure Discharge Diagnosis (1) Acute on chronic diastolic (congestive) heart failure: Code(s): I50.33 - Acute on chronic diastolic (congestive) heart failure Status: Acute Assessment and Plan: Patient is 68-year-old female with history of type 1 diabetes patient was just discharged last week at that time it was decided the patient will stop using her insulin pump and and will use Lantus as recommended by her railroad car painter 12 units daily and do the carb count and sliding scale, patient admitted with SOB, pt has grade 2 diastolic dysfunction, chest x-ray did not show significant pulmonary edema, pt had BNP of 9000 and cardiomegaly on chest x-ray on admission, pt received Iv lasix prior to discharge. (2) Diabetes mellitus with stage 3 chronic kidney disease, with long-term current use of insulin: Qualifiers: Diabetes mellitus type: type 2 Qualified Code(s): E11.22 - Type 2 diabetes mellitus with diabetic chronic kidney disease; N18.3 - Chronic kidney disease, stage 3 (moderate); Z79.4 - senior living (current) use of insulin Code(s): E11.22 - Type 2 diabetes mellitus with diabetic chronic kidney disease; N18.3 - Chronic kidney disease, stage 3 (moderate); Z79.4 - termite exterminator helper (current) use of insulin Status: Acute Assessment and Plan: Patient will continue 12 units of Lantus daily on discharge, Hbaic is 6.2 (3) Chronic kidney disease, stage 3: Code(s): N18.3 - Chronic kidney disease, stage 3 (moderate) Status: Acute Assessment and Plan: Acute on chronic patient is being diuresed, creat is 1.3 on discharge, transition back to pt oral lasix. DS: Summary Time Spent with Patient Time attestation: Total time spent providing and/or coordinating discharge services:8 minutes on day of discharge Exam Const: General: comfortable and no acute distress HENMT: General nose exam: Normal nares present Mouth: Yes moist mucous membranes Eyes: General: appearance normal, both eyes and all related structures Sclera: sclerae normal Neck: Neck: supple Resp: Other: Bilateral fair air entry with rales Cardio: Rate: regular rate Rhythm: regular rhythm Skin: General skin exam: normal color and no rashes or lesions noted Neuro: Speech: normal speech Sensory Exam: normal sensation Extrem: Other: Bilateral lower extremity chronic left worse than right Psych: Affect: Anxious affect present DS: Data Data Completed and Pending Labs on day of discharge: Labs from last 24 hours 04/25/19 04/25/19 04/25/19 08:20 04:54 04:54 WBC 7.1 RBC 2.59 L Hgb 8.0 L Hct 24.3 L MCV 93.8 MCH 30.9 MCHC 32.9 RDW 13.5 Plt Count 210 MPV 11.4 H Sodium 131 L Potassium 3.8 Chloride 102 Carbon Dioxide 25 BUN 25 H Creatinine 1.30 H Estim Creat Clear Calc 37 Estimated GFR 41 L Glucose 255 H POC Capillary Glucose 367 H Calcium 7.9 L 04/25/19 04/24/19 04/24/19 03:05 22:13 18:02 WBC RBC Hgb Hct MCV MCH MCHC RDW Plt Count MPV Sodium Potassium Chloride Carbon Dioxide BUN Creatinine Estim Creat Clear Calc Estimated GFR Glucose POC Capillary Glucose 226 H 283 H 123 H Calcium 04/24/19 13:02 WBC RBC Hgb Hct MCV MCH MCHC RDW Plt Count MPV Sodium Potassium Chloride Carbon Dioxide BUN Creatinine Estim Creat Clear Calc Estimated GFR Glucose POC Capillary Glucose 152 H Calcium Discharge Plan Discharge Attending physician on discharge: Yolis Wayne Discharging Clinician: Yolis Wayne Anticipated Discharge Date/Time: 04/25/19 13:00 Patient Disposition: Home, Self-Care Activity: as tolerated Diet: diabetic Discharge Instructions: Recent venous doppler from 03/26 shows no
[2019-04-25 12:25] LABS: Glucose Point of Care 305 (65-105)
== END 2019-04-25 15:57 | disposition home or self-care (01) ==
LOC: ANHED 16:14 → ANH3MED 22:06
PROVIDERS: Internal Medicine; Admitting Provider Family Medicine; Emergency Provider Emergency Medicine; PCP Family Medicine; Visit Provider Family Medicine
DX: I13.0 Hypertensive heart and chronic kidney disease with heart failure and stage 1 through stage 4 chronic kidney disease, or unspecified chronic kidney disease (principal); E11.22 Type 2 diabetes mellitus with diabetic chronic kidney disease; I50.33 Acute on chronic diastolic (congestive) heart failure; N18.3 Chronic kidney disease, stage 3 (moderate); E11.319 Type 2 diabetes mellitus with unspecified diabetic retinopathy without macular edema; E78.5 Hyperlipidemia, unspecified; I08.0 Rheumatic disorders of both mitral and aortic valves; M85.80 Other specified disorders of bone density and structure, unspecified site; Z79.4 Long term (current) use of insulin; Z79.899 Other long term (current) drug therapy; Z86.010 Personal history of colon polyps
CPT/HCPCS: 36415; 70450; 71046; 80048; 81001; 83880; 84484; 85025; 85027; 85610; 85730; 87081; 93005; 96374; 96375; 96376; 99285; A9270; G0378; J1815; J1940; J7030

== ENCOUNTER 2019-05-22 14:39 | Emergency (ER) | payer OTHER, SELFPAY ==
--- NOTE | ~2019-05-22 | XR_ITS ---
XR ribs RT 2V DATE: 05/22/2019 15:18 INDICATION: Fall. Right chest pain, right breast area TECHNIQUE: 3 views of right ribs COMPARISON: None FINDINGS: There are apparently recent minimally displaced posterolateral right fourth, fifth and sixt h rib fractures. Diffuse osteopenia. There is evidence of multiple old mild rib fracture deformities. Probable old right surgical neck humeral fracture deformity. Scoliosis and degenerative changes of the thoracic and lumbar spine. IMPRESSION: Apparently recent minimally displaced right fourth through sixth posterolateral rib fract ures Reviewed, dictated and finalized at location A. IMPRESSION: Apparently recent minimally displaced right fourth through sixth po sterolateral rib fractures
[2019-05-22 14:43] VITALS: BP 172/65; PULSE 69; RESP 17; TEMP 36.7; O2SAT 100
--- NOTE | 2019-05-22 14:43 | ED.FALL ---
HPI - Fall General Chief Complaint: Fall Stated Complaint: fall Time Seen by Provider: 05/22/19 14:42 Source: patient Mode of arrival: wheelchair Limitations: no limitations History of Present Illness HPI Narrative: Patient is a 68 year old female who presents to the emergency department, by private vehicle, secondary to a fall that occurred at 2PM. She states that she was walking with her daughter's shine retriever when the dog cut her path causing her to fall on the asphalt. Patient denies loss of consciousness or confusion. She fell on her right side and reports 8/10 right rib pain, right hand pain, and nose pain. Her pain worsens when she walks. Patient denies being sick recently with cough, cold, fever, chills, sweats, sore throat, nausea, vomiting, or diarrhea. She has been taking her daily medications. Patient took 2 Tylenol at home for pain. She has a history of diabetes and has a monitor that checks her blood sugar and her blood sugar dropped after her fall. She has chronic bilateral knee and lower leg swelling. Patient is allergic to Codeine and Tramadol. She takes aspirin 81mg daily. Patient is 5 feet and 2.5 inches tall. complaint: fall Onset (ago): minute(s) (42) Fall from: standing Place fall occurred: street Loss of consciousness: none Symptoms prior to fall: none Context: tripped/slipped Location of injury: face (nose) Location of injury - extremities: Right: hand Related Data Home Medications Medication Instructions Recorded Confirmed amlodipine 10 mg PO QAM 12/29/18 04/23/19 aspirin 81 mg PO QPM 12/29/18 04/23/19 atorvastatin 40 mg PO QPM 12/29/18 04/23/19 metoprolol tartrate 100 mg PO BID 12/29/18 04/23/19 multivitamin 1 cap PO QAM 12/29/18 04/23/19 alendronate 70 mg PO WEEKLY 03/25/19 04/23/19 Ocuvite with Lutein 1 tablet PO DAILY 04/18/19 04/23/19 calcium carbonate-vitamin D3 1 tablet PO DAILY 04/18/19 04/23/19 cinnamon bark 350 mg PO DAILY 04/18/19 04/23/19 cyclobenzaprine 10 mg PO TID PRN 04/18/19 04/23/19 fluticasone propionate 2 spray INTRANASAL DAILY 04/18/19 04/23/19 furosemide [Lasix] 40 mg PO DAILY 04/18/19 04/23/19 insulin aspart U-100 [Novolog 1 sliding scale dose SUBCUT 04/18/19 04/23/19 U-100 Insulin aspart] USEASDIRECTD Lantus U-100 Insulin 12 units SUBCUT DAILY 04/23/19 04/23/19 Allergies Allergy/AdvReac Type Severity Reaction Status Date / Time hydrocodone [From [place]] Allergy Vomiting Verified 05/22/19 14:49 tramadol AdvReac Severe NAUSEA Verified 05/22/19 14:49 codeine AdvReac Intermediate MAKES HER Verified 05/22/19 14:49 FEEL BAD Review of Systems Review of Systems: All systems reviewed & are unremarkable except as noted in HPI and below Constitutional: Constitutional: Denies chills, Denies fever(s) and Denies other (sweats, cold) ENT: Reports nose pain and Denies sore throat Respiratory: Respiratory: Denies cough Gastrointestinal: Gastrointestinal: Denies diarrhea, Denies nausea and Denies vomiting Musculoskeletal: Musculoskeletal: Reports other (right rib pain, right hand pain) Neurologic: Denies confusion and Denies syncope PMF Past Medical History Medical History Acute on chronic diastolic (congestive) heart failure Chronic anemia Chronic kidney disease, stage 3 Colon polyps Colonoscopy in August 2017 showing internal hemorrhoids. Diabetes mellitus with stage 3 chronic kidney disease, with long-term current use of insulin Hand fracture Hyperlipidemia Hypertension Mitral valve prolapse Moderate aortic stenosis By echo in 2018. Osteopenia Post-menopausal Retinopathy Type 2 diabetes mellitus with insulin therapy Surgical History Surgical History History of bilateral tubal ligation Social History Social History Social History: The patient lives in her own home in [place]. She has a parakeet that she re
[2019-05-22 16:18] VITALS: BP 164/82; PULSE 76; RESP 18; O2SAT 97
== END 2019-05-22 16:21 | disposition home or self-care (01) ==
PROVIDERS: Emergency Provider Emergency Medicine; PCP Family Medicine
DX: S22.41XA Multiple fractures of ribs, right side, initial encounter for closed fracture (principal); W18.30XA Fall on same level, unspecified, initial encounter; S00.33XA Contusion of nose, initial encounter; S60.221A Contusion of right hand, initial encounter; S60.211A Contusion of right wrist, initial encounter; S20.211A Contusion of right front wall of thorax, initial encounter; M81.0 Age-related osteoporosis without current pathological fracture; I13.0 Hypertensive heart and chronic kidney disease with heart failure and stage 1 through stage 4 chronic kidney disease, or unspecified chronic kidney disease; E11.22 Type 2 diabetes mellitus with diabetic chronic kidney disease; N18.3 Chronic kidney disease, stage 3 (moderate); I50.30 Unspecified diastolic (congestive) heart failure; Z79.4 Long term (current) use of insulin; E78.5 Hyperlipidemia, unspecified; I34.1 Nonrheumatic mitral (valve) prolapse; E11.319 Type 2 diabetes mellitus with unspecified diabetic retinopathy without macular edema; I35.0 Nonrheumatic aortic (valve) stenosis
CPT/HCPCS: 71100; 99283

== ENCOUNTER 2019-11-23 04:40 | Observation (INO) | payer OTHER, SELFPAY ==
[2019-11-23] VITALS (9 sets, daily range): BP systolic 146–178; BP diastolic 51–81; PULSE 74–96; RESP 14–18; TEMP 36.6–36.9; O2SAT 94–99; BMI 28.8
--- NOTE | 2019-11-23 | ECHO_ITS ---
Patient Info Name: Mine Dwyer Age: 69 years : 1950 Gender: Female Ht: 62 in Wt: 157 lbs BSA: 1.79 m2 HR: 82 bpm BP: 158 / 55 mmHg Technical Quality: Good Exam Date: 11/23/2019 3:54 PM Exam Location: [facility] Room: 201 Patient Status: Inpatient Admit Date: 11/23/2019 Staff Ordering Physician: Armando Velasco DO Ict Managers: Pretty Esclaera RDCS Attending Provider: Gage Jacobo MD Referring Physician: Krista GUERRERO; Exam Type: CA echo doppler color flow Study Info Indications - palpitations Complete two-dimensional, color flow and Doppler transthoracic echocardiogram is performed. Summary 1. Complete two-dimensional, color flow and Doppler transthoracic echocardiogram is performed. 2. Left ventricular chamber dimension is normal. 3. Left ventricular wall thickness is mildly increased. 4. Left ventricular systolic function is normal with an estimated ejection fraction of 50.0 %. 5. E/e' 30.0 is elevated. 6. Evidence for elevated left venticular end-diastolic pressure. 7. Grade II diastolic dysfunction of the left ventricle (pseudonormal filling pattern). 8. Left atrial chamber dimension is severely enlarged. 9. There is mild aortic valve regurgitation. 10. There is moderate aortic valve stenosis with a peak velocity of 382 cm/s, mean gradient of 34 mmHg, and aortic valve area of 1.1 cm2. 11. There is mild to moderate mitral valve regurgitation. 12. There is mild to moderate tricuspid valve regurgitation. 13. Severe pulmonary hypertension, estimated pulmonary arterial systolic pressure is 75 mmHg. 14. Normal inferior vena cava with <50% collapse upon inspiration consistent with elevated right atrial pressure, 10 mmHg. Left Ventricle Left ventricular chamber dimension is normal. Left ventricular wall thickness is mildly increased. Grade II diastolic dysfunction of the left ventricle (pseudonormal filling pattern). E/e' 30.0 is elevated. Evidence for elevated left venticular end-diastolic pressure. Left ventricular systolic function is normal with an estimated ejection fraction of 50.0 %. Right Ventricle Right ventricular chamber dimension is normal. Right ventricular systolic function is normal. Ventricular Septum Intact interventricular septum visualized by 2D imaging. Left Atria Left atrial chamber dimension is severely enlarged. Right Atria Right atrial chamber dimension is mildly enlarged. Atrial Septum Intact interatrial septum visualized by 2D imaging. Aortic Valve There is mild aortic valve sclerosis. There is mild aortic valve regurgitation. The aortic valve is trileaflet. There is moderate aortic valve stenosis with a peak velocity of 382 cm/s, mean gradient of 34 mmHg, and aortic valve area of 1.1 cm2. Pulmonic Valve Pulmonary valve is not well visualized. There is trace pulmonic regurgitation. There is no pulmonic valve stenosis. Mitral Valve Mild thickening of the mitral valve. There is mild to moderate mitral valve regurgitation. Mild mitral annular calcification. Tricuspid Valve There is mild to moderate tricuspid valve regurgitation. There is no significant tricuspid valve stenosis. Severe pulmonary hypertension, estimated pulmonary arterial systolic pressure is 75 mmHg. The tricuspid valve leaflets are normal. Pericardium/Pleural Pericardium is normal in appearance with no evidence for significant pericardial effusion. Inferior Vena Cava Inferior aron
--- NOTE | 2019-11-23 | ECG_ITS ---
Measurements Intervals [place] Rate: 88 P: 45 NM: 194 QRS: 29 QRSD: 141 T: 9 QT: 373 QTc: 451 Interpretive Statements SINUS RHYTHM RIGHT BUNDLE BRANCH BL ABNORMAL ECGOCK Electronically Signed On 11-23-2019 7:58:27 CDT by Levon Azevedo D.O.
--- NOTE | ~2019-11-23 | XR_ITS ---
XR chest 2V DATE: 11/23/2019 05:04 INDICATION: Palpitations. Hypertension. TECHNIQUE: AP and lateral views COMPARISON: 05/22/2019 PA chest FINDINGS: There is cardiomegaly. There is pulmonary vascular redistribution which may indicate mild p ulmonary venous hypertension. No pulmonary infiltrate or consolidation, pleural effusion or pneumothorax is noted otherwise. Diffuse osteopenia. IMPRESSION: Cardiomegaly, pulmonary vascular redistribution, suggesting mild congestive change Reviewed, dictated and finalized at location A. IMPRESSION: Cardiomegaly, pulmonary vascular redistribution, suggesting mild co ngestive change
--- NOTE | 2019-11-23 04:52 | ED.ARRPALP ---
HPI - Arrhythmia/Palpitations General Chief Complaint: Arrhythmia/Palpitations Stated Complaint: heart pounding Time Seen by Provider: 11/23/19 04:49 History of Present Illness HPI narrative: Awoken from sleep this evening by rapid pounding heart beat. She denies any Chest pain, SOB, Weakness, dizziness, fever, cough. She was recently admitted to an outside hospital for CHF. She had an echo showing mitral regurgitation. She reports having fluid taken off. She was discharged with PRN hydralazine. Related Data Home Medications Medication Instructions Recorded Confirmed amlodipine 10 mg PO QAM 12/29/18 04/23/19 aspirin 81 mg PO QPM 12/29/18 04/23/19 atorvastatin 40 mg PO QPM 12/29/18 04/23/19 metoprolol tartrate 100 mg PO BID 12/29/18 04/23/19 multivitamin 1 cap PO QAM 12/29/18 04/23/19 alendronate 70 mg PO WEEKLY 03/25/19 04/23/19 Ocuvite with Lutein 1 tablet PO DAILY 04/18/19 04/23/19 calcium carbonate-vitamin D3 1 tablet PO DAILY 04/18/19 04/23/19 cinnamon bark 350 mg PO DAILY 04/18/19 04/23/19 cyclobenzaprine 10 mg PO TID PRN 04/18/19 04/23/19 fluticasone propionate 2 spray INTRANASAL DAILY 04/18/19 04/23/19 furosemide [Lasix] 40 mg PO DAILY 04/18/19 04/23/19 insulin aspart U-100 [Novolog 1 sliding scale dose SUBCUT 04/18/19 04/23/19 U-100 Insulin aspart] USEASDIRECTD Lantus U-100 Insulin 12 units SUBCUT DAILY 04/23/19 04/23/19 hydralazine 50 PO PRN 11/23/19 Allergies Allergy/AdvReac Type Severity Reaction Status Date / Time hydrocodone [From [place]] Allergy Vomiting Verified 11/23/19 04:47 tramadol AdvReac Severe NAUSEA Verified 11/23/19 04:47 codeine AdvReac Intermediate MAKES HER Verified 11/23/19 04:47 FEEL BAD Review of Systems Review of Systems: All systems reviewed & are unremarkable except as noted in HPI and below Constitutional: Constitutional: Denies fever(s) Cardiovascular: Cardiovascular: Denies chest pain and Reports rapid heart rate Respiratory: Respiratory: Denies dyspnea Gastrointestinal: Gastrointestinal: Denies nausea and Denies vomiting Neurologic: Denies dizziness and Denies weakness PMF Past Medical History Medical History (Updated 11/23/19 @ 06:25 by Adan Rosas MD) Acute on chronic diastolic (congestive) heart failure Chronic anemia Chronic kidney disease, stage 3 Colon polyps Colonoscopy in August 2017 showing internal hemorrhoids. Diabetes mellitus with stage 3 chronic kidney disease, with long-term current use of insulin Hand fracture Hyperlipidemia Hypertension Mitral valve prolapse Moderate aortic stenosis By echo in 2018. Osteopenia Post-menopausal Retinopathy Type 2 diabetes mellitus with insulin therapy Surgical History Surgical History History of bilateral tubal ligation Family History Family History Mother Hypertension DVT (deep venous thrombosis) Vertigo Father Hypertension Cerebrovascular accident Sibling Graves disease Vertigo Sibling Family history of thyroid disease Family history of obesity Mother Family history of cataracts Other Family history of arthritis Family history of hearing loss Social History Social History Social History: The patient lives in her own home in [place]. She has a parakeet that she recently rescued. She has been for approximately 2 years now. She has 3 daughters, and designates them as her surrogate decision makers. She wishes to be a full code. She denies alcohol, tobacco, and drug use. She is and does not have a power finance attorney. Smoking status: Never smoker Second hand tobacco smoke exposure: No Additional smoking assessment comments: AND FATHER SMOKED Alcohol intake: never Substance use: never Gender identity (if verbalized by the patient): Female Spiritual care concerns: No
[2019-11-23] MEDS: METOPROLOL TARTRATE INJ 5 MG/5 ML VIAL IV PUSH (05:13)
[2019-11-23 05:17] LABS: Basophils Absolute Auto 0.1 K/mm3 (0.0-0.1); Basophils Percent Auto 0.9 % (0.2-1.2); Eosinophils Absolute Auto 0.3 K/mm3 (0-0.3); Eosinophils Percent Auto 5.4 % (0-4.4); Hematocrit 26.5 % (37.0-47.0); Hemoglobin 8.7 g/dL (12.0-15.0); Immature Granulocyte Absolute 0.02 K/mm3 (0.00-0.031); Immature Granulocyte Percent A 0.3 % (0-0.5); Lymphocytes Absolute Auto 1.33 K/mm3 (0.9-3.2); Lymphocytes Percent Auto 22.6 % (18.3-44.2); Mean Corpuscular HGB Conc 32.8 g/dl (32-36); Mean Corpuscular Hemoglobin 32.5 pg (26-34); Mean Corpuscular Volume 98.9 fl (80-100); Mean Platelet Volume 11.5 fl (7.4-10.4); Monocytes Absolute Auto 0.8 K/mm3 (0.1-0.6); Monocytes Percent Auto 13.1 % (2.6-8.5); Neutrophils Absolute Auto 3.4 K/mm3 (1.3-6.7); Neutrophils Percent Auto 57.7 % (45.5-73.1); Platelet Count Result 225 k/mm3 (150-375); Red Blood Count 2.68 M/mm3 (4.2-5.4); Red Cell Distribution Width 13.6 % (11.5-14.5); White Blood Count 5.9 K/mm3 (4.5-10.0)
[2019-11-23 05:30] LABS: INR 0.9; Prothrombin Time 12.3 Seconds (11.1-14.7)
[2019-11-23 05:31] LABS: Partial Thromboplastin Time 27.4 SECONDS (22.3-36.8)
[2019-11-23 05:32] LABS: Anion Gap 9 mmol/L (8-16); Blood Urea Nitrogen 41 mg/dL (7-17); Carbon Dioxide 27 mmol/L (22-30); Chloride 105 mmol/L (98-107); Estimated Glomerular Filt Rate 26; Glucose 196 mg/dL (65-105); Potassium 3.9 mmol/L (3.4-5.0); Sodium 141 mmol/L (137-145)
[2019-11-23] MEDS: hydrALAZINE HCL 20 MG/ML VIAL 10 MG IV PUSH (05:42)
[2019-11-23] MEDS: SODIUM CHLORIDE 0.9% IV 500 ML 999 ML IV CONT (05:42)
[2019-11-23 05:50] LABS: NT Pro B Type Natriuretic Pept 13200 PG/ML (5-100); Troponin I 0.043 ng/mL (0.000-0.034)
[2019-11-23] MEDS: ACETAMINOPHEN 500 MG TABLET 1000 MG PO (07:02)
--- NOTE | 2019-11-23 07:25 | PM.IMHP ---
H&P: HPI History of Present Illness Date/Time: 11/23/19 07:25 Chief complaint: chf Narrative: Mine Dwyer is a 69 year old female [facility] Past Medical History Medical History (Updated 11/23/19 @ 06:25 by Adan Rosas MD) Acute on chronic diastolic (congestive) heart failure Chronic anemia Chronic kidney disease, stage 3 Colon polyps Colonoscopy in August 2017 showing internal hemorrhoids. Diabetes mellitus with stage 3 chronic kidney disease, with long-term current use of insulin Hand fracture Hyperlipidemia Hypertension Mitral valve prolapse Moderate aortic stenosis By echo in 2018. Osteopenia Post-menopausal Retinopathy Type 2 diabetes mellitus with insulin therapy Surgical History Surgical History History of bilateral tubal ligation Family History Family History Mother Hypertension DVT (deep venous thrombosis) Vertigo Father Hypertension Cerebrovascular accident Sibling Graves disease Vertigo Sibling Family history of thyroid disease Family history of obesity Mother Family history of cataracts Other Family history of arthritis Family history of hearing loss Social History Social History Social History: The patient lives in her own home in [place]. She has a parakeet that she recently rescued. She has been for approximately 2 years now. She has 3 daughters, and designates them as her surrogate decision makers. She wishes to be a full code. She denies alcohol, tobacco, and drug use. She is and does not have a power assistant county attorney. Smoking status: Never smoker Second hand tobacco smoke exposure: No Additional smoking assessment comments: AND FATHER SMOKED Alcohol intake: never Substance use: never Gender identity (if verbalized by the patient): Female Spiritual care concerns: No Agree to blood products: Yes Meds Home Medications and Allergies Home Medications Medication Instructions Recorded Confirmed Type amlodipine 10 mg PO QAM 12/29/18 04/23/19 History aspirin 81 mg PO QPM 12/29/18 04/23/19 History atorvastatin 40 mg PO QPM 12/29/18 04/23/19 History metoprolol tartrate 100 mg PO BID 12/29/18 04/23/19 History multivitamin 1 cap PO QAM 12/29/18 04/23/19 History alendronate 70 mg PO WEEKLY 03/25/19 04/23/19 History Ocuvite with Lutein 1 tablet PO DAILY 04/18/19 04/23/19 History calcium carbonate-vitamin D3 1 tablet PO DAILY 04/18/19 04/23/19 History cinnamon bark 350 mg PO DAILY 04/18/19 04/23/19 History cyclobenzaprine 10 mg PO TID PRN 04/18/19 04/23/19 History fluticasone propionate 2 spray INTRANASAL DAILY 04/18/19 04/23/19 History furosemide [Lasix] 40 mg PO DAILY 04/18/19 04/23/19 History insulin aspart U-100 [Novolog 1 sliding scale dose SUBCUT 04/18/19 04/23/19 History U-100 Insulin aspart] USEASDIRECTD insulin aspart U-100 [Novolog See Protocol SUBCUT TIDWM ml 04/21/19 04/23/19 Rx U-100 Insulin aspart] Lantus U-100 Insulin 12 units SUBCUT DAILY 04/23/19 04/23/19 History hydralazine 50 PO PRN 11/23/19 History Allergies Allergy/AdvReac Type Severity Reaction Status Date / Time hydrocodone [From [place]] Allergy Vomiting Verified 11/23/19 04:47 tramadol AdvReac Severe NAUSEA Verified 11/23/19 04:47 codeine AdvReac Intermediate MAKES HER Verified 11/23/19 04:47 FEEL BAD Vital Signs Vital Signs - 24 hr 11/23/19 04:38 11/23/19 05:13 11/23/19 05:39 Temperature 36.9 C Pulse Rate 96 80 74 Respiratory Rate 16 16 Blood Pressure 178/75 H 162/55 H Pulse Oximetry 99 94 11/23/19 06:04 11/23/19 07:00 Temperature Pulse Rate 82 80 Respiratory Rate 17 14 Blood Pressure 146/51 H 152/58 H Pulse Oximetry 98 96 H&P: Results Labs Labs: Short CBC 11/23/19 Range/Units 05:08 WBC 5.9 (4.5-10.0) K/mm3 Hgb 8.7 L (12
--- NOTE | 2019-11-23 08:18 | ADMGEN ---
This patient, Mine Dwyer, was admitted to IMU Room 201-01 at 0815 on 11/23/2019. Patient/family oriented to hospital policies and general routines including ID bracelet, bed and alarms, visiting hours, pain management, procedures, bathroom and other care routines, personal items, smoking policy, room service/diet, and visiting hours. Valuables list has been completed. Information on how to activate the Rapid Response Team has been discussed. Patient/Family are encouraged to report perceived risks to care and to ask questions if they do not understand what they are told or what they should do.
--- NOTE | 2019-11-23 08:40 | PM.CNCAR ---
Assessment and Plan Assessment and plan (1) Palpitations: Code(s): R00.2 - Palpitations Status: Acute Assessment and Plan: 69 y/o female with h/o lymphedema, type I DM,diastolic CHF, Moderate aortic stenosis, who presents with palpitations. She had recent admission with CHF exacerbation and was told she has MR. She never had A fib or arrhythmia as fas as she knows Her EKG now shows sinus rhythm Will monitor on tele for any arrhythmias. Will need to get records from her recent admission. She had echocardiogram during that time. She is on Metoprolol at home and will continues with that (2) CHF (congestive heart failure): Code(s): I50.9 - Heart failure, unspecified Status: Acute Assessment and Plan: She appears well compensated from CHF standpoint. Her Cr 1.9 increased from 1.3 from Mar but unclear what was her Cr during her recent admission. Will hold lasix for now and monitor her creatinine Will need to get records including labs and echo report (3) Chronic kidney disease, stage 3: Code(s): N18.3 - Chronic kidney disease, stage 3 (moderate) Status: Acute (4) Moderate aortic stenosis: Code(s): I35.0 - Nonrheumatic aortic (valve) stenosis Status: Acute Assessment and Plan: Noted on Echo in Mar. She was told in her recent hospital stay that she has MR. She only had mild MR on her last echo in Mar. Need to get echo report from [facility] History of Present Illness History of Present Illness Consult date/time: 11/23/19 08:40 69 y/o female with h/o lymphedema, type I DM,diastolic CHF, Moderate aortic stenosis who presents with palpitations. She was recently admitted at [facility]. She received IV lasix during that admission and was told she has mitral regurgitation. She went down 13 pounds during that admission. Discharged on 40 daily. Not followed by cardiology. Never had LHC in the past. She states that she has been breathing better since discharge but she woke up with palpitations at 3:00 am this morning. She describes that as heart racing and fluttering. Around 4:00 she was still feeling the same and decided to call ambulance. By the time she got to the hospital palpitations resolved. She feels back to normal now.She had no chest pain, dyspnea or dizziness. She was here in Mar with uncontrolled DM and DKA EKG this admission shows: sinus rhythm with RBBB and no ischemic changes. Creatinine 1.9 (was 1.3 in Mar). Trop 0.04. NT-pro-BNP 23439. Chest Xray: mild pulmonary edema. She had echo in Mar 2019 with normal EF and moderate with peak velocity of 3.4 m/s and valve area 1.2 cm2 Reason For Visit: chf Review of Systems Review of Systems: All systems reviewed & are unremarkable except as noted in HPI and below Constitutional: Constitutional: Denies fatigue and Denies headache(s) Eyes: Eyes: Denies blurry vision ENT: Reports Normal hearing present and Denies headache(s) Cardiovascular: Cardiovascular: Denies chest pain, Denies diaphoresis, Denies pedal edema, Denies leg edema, Denies lightheadedness, Denies palpitations and Denies dyspnea Respiratory: Respiratory: Denies cough and Denies dyspnea Gastrointestinal: Gastrointestinal: Denies abdominal pain Musculoskeletal: Musculoskeletal: Denies back pain Neurologic: Reports Normal hearing present and Denies headache(s) Psychiatric: Psychiatric: Denies anxiety Endocrine: Endocrine: Denies fatigue and Denies palpitations [facility] Past Medical History Medical History (Updated 11/23/19 @ 09:12 by Ingrid Brannon MD) Acute on chronic diastolic (congestive) heart failure Chronic anemia Chronic kidney disease, stage 3 Colon polyps Colonoscopy in August 2017 showing internal hemorrhoids. Diabetes mellitus with stage 3 chronic kidney disease, with long-term current use of insulin Hand fracture Hyperlipidemia Hypertension Mitral valve prolapse Moderate aortic stenosis By echo in 2
[2019-11-23 09:13] LABS: Troponin I 0.042 ng/mL (0.000-0.034)
[2019-11-23 11:42] LABS: Troponin I 0.051 ng/mL (0.000-0.034)
[2019-11-23 13:07] LABS: Glucose Point of Care 344 (65-105)
[2019-11-23] MEDS: INSULIN ASPART (*BKC) 100 UNITS/ML SUB-Q ×2 (13:29→18:35)
[2019-11-23 16:44] LABS: Glucose Point of Care 306 (65-105)
--- NOTE | 2019-11-23 17:09 | PM.SD ---
Same Day Admit/Disch: HPI History of Present Illness Chief complaint: chf Narrative: Mine Dwyer is a 69 year old female with past medical history of CHF, recent cataract surgery, type 2 diabetes, hypertension who presents to the ED with complaints of palpitations. the palpitations woke her up from sleep and she was scared and pressed her Life Alert. This has never happened before. She recently was seen at [place] in [facility] and states she was treated for CHF. Appear she did not have a echocardiogram done at that time. she is looking to establish care with a director of diagnostic imaging. Of note she also had recent cataract surgery on 10/23/2019 and 10/30/2019 and does not need her glasses anymore. she does not drive at night but does know brain fogginess has happened since her surgery. she notes having this fatigue that happens every other day and her PCP is going to work it up with a sleep study possible sleep apnea. her fatigue has also been blamed on her CHF as well. patient denies chest pain, orthopnea, dyspnea exertion , syncope, lightheadedness. [facility] Past Medical History Medical History Acute on chronic diastolic (congestive) heart failure Chronic anemia Chronic kidney disease, stage 3 Colon polyps Colonoscopy in August 2017 showing internal hemorrhoids. Diabetes mellitus with stage 3 chronic kidney disease, with long-term current use of insulin Hand fracture Hyperlipidemia Hypertension Mitral valve prolapse Moderate aortic stenosis By echo in 2018. Osteopenia Post-menopausal Retinopathy Type 2 diabetes mellitus with insulin therapy Surgical History Surgical History (Updated 11/23/19 @ 17:25 by Armando Velasco DO) History of bilateral tubal ligation S/P cataract surgery bilateral 10/2019 Family History Family History Mother Hypertension DVT (deep venous thrombosis) Vertigo Father Hypertension Cerebrovascular accident Sibling Graves disease Vertigo Sibling Family history of thyroid disease Family history of obesity Mother Family history of cataracts Other Family history of arthritis Family history of hearing loss Social History Social History Social History: The patient lives in her own home in [place]. She has a parakeet that she recently rescued. She has been for approximately 2 years now. She has 3 daughters, and designates them as her surrogate decision makers. She wishes to be a full code. She denies alcohol, tobacco, and drug use. She is and does not have a power director furniture. Smoking status: Never smoker Second hand tobacco smoke exposure: No Additional smoking assessment comments: AND FATHER SMOKED Alcohol intake: never Substance use: never Gender identity (if verbalized by the patient): Female Spiritual care concerns: Yes (Requested Visits from Quality Control Assistant) Agree to blood products: Yes Same Day Admit/Disch: Med Pre-admit Medications Home Medications Medication Instructions Recorded Confirmed Type amlodipine 10 mg PO QAM 12/29/18 11/23/19 History aspirin 81 mg PO QPM 12/29/18 11/23/19 History atorvastatin 40 mg PO QPM 12/29/18 11/23/19 History metoprolol tartrate 100 mg PO BID 12/29/18 11/23/19 History multivitamin 1 cap PO QAM 12/29/18 11/23/19 History alendronate 70 mg PO WEEKLY 03/25/19 11/23/19 History Ocuvite with Lutein 1 tablet PO DAILY 04/18/19 11/23/19 History calcium carbonate-vitamin D3 1 tablet PO DAILY 04/18/19 11/23/19 History cyclobenzaprine 10 mg PO TID PRN 04/18/19 11/23/19 History fluticasone propionate 2 spray INTRANASAL DAILY 04/18/19 11/23/19 History furosemide [Lasix] 40 mg PO DAILY 04/18/19 11/23/19 History insulin aspart U-100 [Novolog 1 sliding scale dose SUBCUT 04/18/19 11/23/19 History U-100 Insulin aspart] USEASDI
== END 2019-11-23 18:55 | disposition home or self-care (01) ==
LOC: ANHED 06:25 → ANHIMU 08:59
PROVIDERS: Admitting Provider Family Medicine; Emergency Provider Emergency Medicine; PCP Family Medicine; Visit Provider Student in an Organized Health Care Education/Training Program
DX: R00.2 Palpitations (principal); I89.0 Lymphedema, not elsewhere classified; I13.0 Hypertensive heart and chronic kidney disease with heart failure and stage 1 through stage 4 chronic kidney disease, or unspecified chronic kidney disease; E11.22 Type 2 diabetes mellitus with diabetic chronic kidney disease; N18.30 Chronic kidney disease, stage 3 unspecified; I50.33 Acute on chronic diastolic (congestive) heart failure; E11.319 Type 2 diabetes mellitus with unspecified diabetic retinopathy without macular edema; D64.9 Anemia, unspecified; E78.5 Hyperlipidemia, unspecified; I34.1 Nonrheumatic mitral (valve) prolapse; I35.0 Nonrheumatic aortic (valve) stenosis; Z79.82 Long term (current) use of aspirin; Z79.4 Long term (current) use of insulin
CPT/HCPCS: 36415; 71046; 80048; 83880; 84484; 85025; 85610; 85730; 93005; 93306; 96374; 96375; 99285; A9270; G0378; J0360; J1815; J7040

== ENCOUNTER 2020-01-11 00:43 | Outpatient (CLI) | payer OTHER, SELFPAY ==
[2020-01-11 21:25] LABS: SARS-CoV-2 RNA PCR Negative
== END 2020-01-11 00:44 | disposition home or self-care (01) ==
LOC: ANHCOVIDDT 00:43
PROVIDERS: PCP Family Medicine; Visit Provider Specialist
DX: Z01.812 Encounter for preprocedural laboratory examination (principal); Z20.828 Contact with and (suspected) exposure to other viral communicable diseases
CPT/HCPCS: 87635; C9803; U0003

== ENCOUNTER → 2020-01-14 01:06 | Day surgery (SDC) | payer OTHER, SELFPAY ==
[2020-01-11 11:03] VITALS: BMI 32.0
[2020-01-14] VITALS (16 sets, daily range): BP systolic 100–167; BP diastolic 41–54; PULSE 49–63; RESP 12–20; TEMP 35.9–37; O2SAT 90–99; BMI 32.7
[2020-01-14 11:50] LABS: Basophils Absolute Auto 0.1 K/mm3 (0.0-0.1); Eosinophils Absolute Auto 0.2 K/mm3 (0-0.3); Eosinophils Percent Auto 2.3 % (0-4.4); Hematocrit 27.1 % (37.0-47.0); Hemoglobin 8.8 g/dL (12.0-15.0); Immature Granulocyte Absolute 0.02 K/mm3 (0.00-0.031); Immature Granulocyte Percent A 0.3 % (0-0.5); Lymphocytes Absolute Auto 0.64 K/mm3 (0.9-3.2); Lymphocytes Percent Auto 8.7 % (18.3-44.2); Mean Corpuscular HGB Conc 32.5 g/dl (32-36); Mean Corpuscular Volume 98.5 fl (80-100); Mean Platelet Volume 11.3 fl (7.4-10.4); Monocytes Absolute Auto 0.5 K/mm3 (0.1-0.6); Monocytes Percent Auto 6.4 % (2.6-8.5); Neutrophils Percent Auto 81.3 % (45.5-73.1); Platelet Count Result 199 k/mm3 (150-375); Red Blood Count 2.75 M/mm3 (4.2-5.4); Red Cell Distribution Width 13.2 % (11.5-14.5); White Blood Count 7.3 K/mm3 (4.5-10.0)
[2020-01-14 12:00] LABS: Prothrombin Time 13.5 Seconds (11.1-14.7)
[2020-01-14 12:03] LABS: Anion Gap 14 mmol/L (8-16); Blood Urea Nitrogen 53 mg/dL (7-17); Calcium 8.5 mg/dL (8.4-10.2); Carbon Dioxide 21 mmol/L (22-30); Chloride 100 mmol/L (98-107); Estimated CRCL calculation 22 ml/min; Estimated Glomerular Filt Rate 23; Glucose 407 mg/dL (65-105); Potassium 4.6 mmol/L (3.4-5.0); Sodium 135 mmol/L (137-145)
--- NOTE | 2020-01-14 12:57 | PM.IMHP ---
H&P: HPI History of Present Illness Date/Time: 01/14/20 12:57 Chief complaint: shortness of breath Narrative: Mine Dwyer is a 69 year old female With history of diabetes mellitus, history of hypertension, noted to have shortness of breath, her echocardiogram showed aortic valve stenosis possibly severe, she has symptoms of congestive heart failure with significant shortness of breath, she will be admitted to the hospital for elective cardiac catheterization for evaluation of the current status of coronary disease [facility] Past Medical History Medical History (Updated 01/14/20 @ 12:58 by Remy Ritter MD) Acute on chronic diastolic (congestive) heart failure Chronic anemia Chronic kidney disease, stage 3 Colon polyps Colonoscopy in August 2017 showing internal hemorrhoids. Diabetes mellitus with stage 3 chronic kidney disease, with long-term current use of insulin Hand fracture Hyperlipidemia Hypertension Mitral valve prolapse Moderate aortic stenosis By echo in 2017. Osteopenia Post-menopausal Retinopathy Type 2 diabetes mellitus with insulin therapy Surgical History Surgical History (Updated 11/23/19 @ 17:25 by Armando Velasco DO) History of bilateral tubal ligation S/P cataract surgery bilateral 10/2019 Family History Family History Mother Hypertension DVT (deep venous thrombosis) Vertigo Father Hypertension Cerebrovascular accident Sibling Graves disease Vertigo Sibling Family history of thyroid disease Family history of obesity Mother Family history of cataracts Other Family history of arthritis Family history of hearing loss Social History Social History Social History: The patient lives in her own home in [place]. She has a parakeet that she recently rescued. She has been for approximately 2 years now. She has 3 daughters, and designates them as her surrogate decision makers. She wishes to be a full code. She denies alcohol, tobacco, and drug use. She is and does not have a power business attorney. Smoking status: Never smoker Second hand tobacco smoke exposure: No Additional smoking assessment comments: AND FATHER SMOKED Alcohol intake: never Substance use: never Living arrangements: alone Gender identity (if verbalized by the patient): Female Spiritual care concerns: No Agree to blood products: Yes Meds Home Medications and Allergies Home Medications Medication Instructions Recorded Confirmed Type amlodipine 10 mg PO QAM 12/29/18 01/11/20 History aspirin 81 mg PO QPM 12/29/18 01/11/20 History atorvastatin 40 mg PO QPM 12/29/18 01/11/20 History metoprolol tartrate 100 mg PO BID 12/29/18 01/11/20 History multivitamin 1 cap PO QAM 12/29/18 01/11/20 History alendronate 70 mg PO WEEKLY 03/25/19 01/11/20 History Ocuvite with Lutein 1 tablet PO DAILY 04/18/19 01/11/20 History calcium carbonate-vitamin D3 1 tablet PO DAILY 04/18/19 01/11/20 History cyclobenzaprine 10 mg PO TID PRN 04/18/19 01/11/20 History fluticasone propionate 2 spray INTRANASAL DAILY 04/18/19 01/11/20 History furosemide [Lasix] 40 mg PO DAILY 04/18/19 01/11/20 History insulin aspart U-100 [Novolog 1 sliding scale dose SUBCUT 04/18/19 01/11/20 History U-100 Insulin aspart] USEASDIRECTD insulin aspart U-100 [Novolog See Protocol SUBCUT TIDWM ml 04/21/19 01/11/20 Rx U-100 Insulin aspart] Lantus U-100 Insulin 4 units SUBCUT DAILY 04/23/19 01/11/20 History Lantus U-100 Insulin 3 units SUBCUT HS 11/23/19 01/11/20 History hydralazine 50 mg PO BID PRN 11/23/19 01/11/20 History olmesartan 20 mg PO DAILY 01/11/20 01/11/20 History Allergies Allergy/AdvReac Type Severity Reaction Status Date / Time tramadol AdvReac Severe NAUSEA Verified 11/23/19 04:47 codeine AdvReac Intermediate MAKES HER Verified 11/23/19 04:47 FEEL BAD hydrocodone [Fr
--- NOTE | 2020-01-14 13:21 | P.PCNCC_ITS ---
Cardiac Cath Procedure Note Date of procedure:: 01/14/20 Performing physician:: Remy Crenshaw Procedure: 1. Left heart catheterization, selective coronary angiogram. 2. Conscious sedation. Bullard Operator: Dr. Remy Ritter Complications: None. Sedation: Conscious sedation, local anesthesia, using 1 mg of Versed said, 25 mcg of fentanyl, and using 1% lidocaine for local anesthesia. History: Technique: After informed consent was obtained from patient, was brought to the cardiac cath lab technologist, put in the cardiac cath lab technologist table, prepped and draped in usual sterile fashion. Five Algerian sheath was inserted into the right common femoral artery, through the sheath 5 Algerian JL4 catheter inserted, advanced to the left coronary artery, left coronary artery angiogram was obtained. The catheter was exchanged over guidewire into a 5 Algerian JR4 catheter, advanced to the right coronary artery, right coronary artery angiogram was obtained. The catheter then was exchanged over guidewire into this 5 Algerian pigtail catheter, advanced to left ventricle, left ventricular pressure was obtained. The catheter then was pulled, the sheath was pulled applying manual pressure for arterial hemostasis. Patient tolerated the procedure no complication, taken from the cardiac cath lab technologist to his room in stable condition stable vital signs. Hemodynamics: aortic pressure 107/50 . LV pressure 144/04 with LVEDP of 24 mmHg Angiographic findings: Left main: Medium size artery no significant disease or stenosis. Lad medium size artery showed mid LAD 40% narrowing followed by 50% narrowing in the mid section. Left circumflex artery, medium size artery, no significant disease or stenosis. RCA: Dominant vessel, showed mid RCA significant irregularity with a 40 % disease. LV: LV was not done due to elevated creatinine Summary: Mild coronary artery disease, moderate to severe aortic valve stenosis Recommendation: Maximum medical treatment. considering TAVR, for treatment of moderate to severe aortic valve stenosis
--- NOTE | 2020-01-14 13:27 | WPDMODSED ---
Moderate Sedation Note-Pt Data Patient Data Allergies Allergy/AdvReac Type Severity Reaction Status Date / Time tramadol AdvReac Severe NAUSEA Verified 11/23/19 04:47 codeine AdvReac Intermediate MAKES HER Verified 11/23/19 04:47 FEEL BAD hydrocodone [From [place]] AdvReac Vomiting Verified 01/14/20 07:12 Home Medications Medication Instructions Recorded Confirmed Type amlodipine 10 mg PO QAM 12/29/18 01/11/20 History aspirin 81 mg PO QPM 12/29/18 01/11/20 History atorvastatin 40 mg PO QPM 12/29/18 01/11/20 History metoprolol tartrate 100 mg PO BID 12/29/18 01/11/20 History multivitamin 1 cap PO QAM 12/29/18 01/11/20 History alendronate 70 mg PO WEEKLY 03/25/19 01/11/20 History Ocuvite with Lutein 1 tablet PO DAILY 04/18/19 01/11/20 History calcium carbonate-vitamin D3 1 tablet PO DAILY 04/18/19 01/11/20 History cyclobenzaprine 10 mg PO TID PRN 04/18/19 01/11/20 History fluticasone propionate 2 spray INTRANASAL DAILY 04/18/19 01/11/20 History furosemide [Lasix] 40 mg PO DAILY 04/18/19 01/11/20 History insulin aspart U-100 [Novolog 1 sliding scale dose SUBCUT 04/18/19 01/11/20 History U-100 Insulin aspart] USEASDIRECTD insulin aspart U-100 [Novolog See Protocol SUBCUT TIDWM ml 04/21/19 01/11/20 Rx U-100 Insulin aspart] Lantus U-100 Insulin 4 units SUBCUT DAILY 04/23/19 01/11/20 History Lantus U-100 Insulin 3 units SUBCUT HS 11/23/19 01/11/20 History hydralazine 50 mg PO BID PRN 11/23/19 01/11/20 History olmesartan 20 mg PO DAILY 01/11/20 01/11/20 History Current Medications: Active Medications Alendronate Sodium (Alendronate Sodium 70 Mg Tablet) 70 mg PO Tu@0630 LIS Amlodipine Besylate (Amlodipine Besylate 5 Mg Tablet) 10 mg PO QAM LIS Aspirin (Aspirin 81 Mg Chewable Tablet) 81 mg PO QPM LIS Atorvastatin Calcium (Atorvastatin 40 Mg Tablet) 40 mg PO QPM [facility] Cyclobenzaprine HCl (Cyclobenzaprine Hcl 10 Mg Tablet) 10 mg PO TID PRN PRN Reason: Muscle Spasm Furosemide (Furosemide 40 Mg Tablet) 40 mg PO DAILY [facility] Hydralazine HCl (Hydralazine Hcl 50 Mg Tablet) 50 mg PO BID PRN PRN Reason: hypertension Sodium Chloride (Normal Saline Iv) 500 mls @ 100 mls/hr IV CONT .Q5H LIS Sodium Chloride (Normal Saline Iv) 1,000 mls @ 80 mls/hr IV CONT .[id number] ONE Stop: 01/15/20 01:47 Metoprolol Tartrate (Metoprolol Tartrate 50 Mg Tab) 100 mg PO Q12HR [facility] Multivitamins Therapeutic (Multivitamins Therapeutic Tab (*Bkc)) tablet PO QAM [facility] Multivitamins/Minerals (Opti-Gen Tab) 1 tablet PO DAILY [facility] Non-Formulary Medication (Calcium Carbonate-Vitamin D3) 1 tablet PO DAILY [facility] Stop: 02/14/20 09:01 Olmesartan (Olmesartan Medoxomil 20 Mg Tablet) 20 mg PO DAILY [facility] Sedation/Anesthesia: No previous sedation/anesthesia problems (including family history). [facility] Past Medical History Medical History (Updated 01/14/20 @ 12:58 by Remy Ritter MD) Acute on chronic diastolic (congestive) heart failure Chronic anemia Chronic kidney disease, stage 3 Colon polyps Colonoscopy in August 2017 showing internal hemorrhoids. Diabetes mellitus with stage 3 chronic kidney disease, with long-term current use of insulin Hand fracture Hyperlipidemia Hypertension Mitral valve prolapse Moderate aortic stenosis By echo in 2017. Osteopenia Post-menopausal Retinopathy Type 2 diabetes mellitus with insulin therapy Surgical History Surgical History (Updated 11/23/19 @ 17:25 by Armando Velasco DO) History of bilateral tubal ligation S/P cataract surgery bilateral 10/2019 Family History Family History Mother Hypertension DVT (deep venous thrombosis) Vertigo Father Hypertension Cerebrovascular accident Sibling Graves disease Vertigo Sibling Family history of thyroid disease Family history of obesity Mother Family history of cataracts Other Family history of arthritis Family history of hearing loss Social History Social History (Reviewed 11/22
[2020-01-14] MEDS: INSULIN ASPART (*BKC) 100 UNITS/ML SUB-Q (14:45)
[2020-01-14 14:59] LABS: Glucose Point of Care 423 (65-105)
[2020-01-14 18:45] LABS: Glucose Point of Care 359 (65-105)
== END | disposition home or self-care (01) ==
PROVIDERS: PCP Family Medicine; Visit Provider Specialist
PROC: 4A023N7 Measurement of Cardiac Sampling and Pressure, Left Heart, Percutaneous Approach (ICD-10-PCS; CPT 93452; principal; 2020-01-14 12:30)
DX: I35.0 Nonrheumatic aortic (valve) stenosis (principal); I25.10 Atherosclerotic heart disease of native coronary artery without angina pectoris; R06.02 Shortness of breath; I13.0 Hypertensive heart and chronic kidney disease with heart failure and stage 1 through stage 4 chronic kidney disease, or unspecified chronic kidney disease; I50.33 Acute on chronic diastolic (congestive) heart failure; N18.30 Chronic kidney disease, stage 3 unspecified; E10.22 Type 1 diabetes mellitus with diabetic chronic kidney disease; E10.319 Type 1 diabetes mellitus with unspecified diabetic retinopathy without macular edema; E78.5 Hyperlipidemia, unspecified; I34.1 Nonrheumatic mitral (valve) prolapse; M85.80 Other specified disorders of bone density and structure, unspecified site; Z79.4 Long term (current) use of insulin; Z79.82 Long term (current) use of aspirin
CPT/HCPCS: 36415; 80048; 85025; 85610; 93458; C1887; C1894; J1644; J1815; J2250; J2405; J3010; J7040

== ENCOUNTER 2020-02-15 13:39 | Inpatient (IN) | payer OTHER, SELFPAY ==
[2020-02-15] VITALS (10 sets, daily range): BP systolic 141–161; BP diastolic 50–78; PULSE 56–61; RESP 15–20; TEMP 36.5–37.1; O2SAT 96–99; BMI 35.4
--- NOTE | ~2020-02-15 | US_ITS ---
EXAMINATION: US renal BI DATE: 02/16/2020 10:15 INDICATION: Acute on chronic renal failure TECHNIQUE: Multiple grayscale and Doppler ultrasound images of the kidneys were obtained. COMPARISON: 12/31/2018 FINDINGS: The right kidney measures 9.5 x 2.8 x 6.6 cm. The left kidney measures 9.6 x 4.2 x 4.8 cm. The kidneys demonstrate normal parenchymal echogenicity. There is no hydronephrosis. The bladder is n ormal. IMPRESSION: 1. Normal kidneys without hydronephrosis. Reviewed, dictated and finalized at location A. WARE PERFORMANCE ENGINEER
--- NOTE | ~2020-02-15 | XR_ITS ---
EXAMINATION: XR chest 2V DATE: 02/15/2020 15:08 INDICATION: Congestive heart failure, shortness of breath TECHNIQUE: AP and lateral views of the chest are obtained. COMPARISON: 11/23/2019 FINDINGS: There are diffuse interstitial and airspace opacities throughout all lung zones. Small pleu ral effusions are present. There is no pneumothorax. The cardiomediastinal silhouette is normal. Ther e is mild thoracic spondylosis. IMPRESSION: 1. Diffuse opacities of the lungs which could reflect pneumonia and/or pulmonary edema. Reviewed, dictated and finalized at location A. IST CAMP ATTENDANT IMPRESSION: 1. Diffuse opacities of the lungs which could reflect pneumonia and/or pulmonar y edema.
--- NOTE | ~2020-02-15 | US_ITS ---
EXAMINATION: US venous doppler UE LT DATE: 02/19/2020 14:39 INDICATION: Left upper limb edema. TECHNIQUE: Grayscale ultrasound images without and with compression and Doppler ultrasound images of the left upper extremity veins were obtained. COMPARISON: None. FINDINGS: The visualized portions of the left internal jugular vein, subclavian vein, axillary vein, brachial v eins, basilic vein, cephalic vein, radial vein, and ulnar vein are patent. IMPRESSION: 1. No deep venous thrombosis. Reviewed, dictated and finalized at location A. ERENCE ORGANIZER
--- NOTE | ~2020-02-15 | XR_ITS ---
EXAMINATION: XR chest 2V DATE: 02/18/2020 09:28 INDICATION: Shortness of breath. TECHNIQUE: Frontal and lateral views of the chest were obtained. COMPARISON: Chest 2 views 02/15/2020, 12/29/2018, 11/23/2019 FINDINGS: There is a diffuse interstitial pattern in the lungs. There is a small left pleural effusio n. There are airspace opacities at left lung base. No pneumothorax. Cardiomegaly is noted. IMPRESSION: 1. Persistent interstitial pattern in the lungs, likely mild pulmonary edema. 2. Stable small left pleural effusion. 3. Cardiomegaly. Reviewed, dictated and finalized at location A. S BURNISHER
--- NOTE | ~2020-02-15 | US_ITS ---
EXAMINATION: US venous doppler [facility] DATE: 02/16/2020 10:15 INDICATION: Lower limb swelling. Shortness of breath. TECHNIQUE: Grayscale ultrasound images without and with compression and Doppler ultrasound images of the bilateral lower extremity veins were obtained. COMPARISON: None. FINDINGS: The visualized portions of right common femoral vein, profunda (deep) femoral vein, femoral vein, pop liteal vein, posterior tibial veins, peroneal veins, gastrocnemius vein and greater saphenous vein ou tflow are patent. The visualized portions of left common femoral vein, profunda femoral vein, femoral vein, popliteal v ein, posterior tibial veins, peroneal veins, gastrocnemius vein and greater saphenous vein outflow ar e patent. Evaluation of the veins of the calves is limited by patient body habitus and subcutaneous edema. IMPRESSION: 1. No deep venous thrombosis in either lower limb. Reviewed, dictated and finalized at location A. CTOR INDUSTRIAL RELATIONS
--- NOTE | ~2020-02-15 | NM_ITS ---
NM pulmonary perfusion INDICATION: Shortness of breath. Body swelling. TECHNIQUE: 5.5 mCi Tc 99m MAA was injected intravenously for perfusion images. Multiple images were then acquired. COMPARISON: Chest x-ray dated 02/18/2020 FINDINGS: The comparison chest radiograph probable mild interstitial edema with small pleural effusio ns. The perfusion scan is heterogeneous, although no focal perfusion abnormalities are identified. Th e aerosol in images show uniform deposition throughout the lungs. IMPRESSION: 1: Heterogeneous perfusion of the lungs without focal perfusion defect. Reviewed, dictated and finalized at location A. PER COUNTER
--- NOTE | 2020-02-15 13:45 | ECG_ITS ---
Measurements Intervals [place] Rate: 57 P: 31 KS: 186 QRS: 42 QRSD: 148 T: 14 QT: 447 QTc: 438 Interpretive Statements SINUS BRADYCARDIA RIGHT BUNDLE BRANCH BLOCK ABNORMAL ECG Electronically Signed On 02-15-2020 15:19:34 SOLID WASTE TECHNICIAN by Levon Azevedo D.O.
[2020-02-15 14:03] LABS: Basophils Absolute Auto 0.1 K/mm3 (0.0-0.1); Eosinophils Absolute Auto 0.1 K/mm3 (0-0.3); Eosinophils Percent Auto 0.6 % (0-4.4); Hematocrit 25.8 % (37.0-47.0); Hemoglobin 8.4 g/dL (12.0-15.0); Immature Granulocyte Absolute 0.04 K/mm3 (0.00-0.031); Immature Granulocyte Percent A 0.5 % (0-0.5); Mean Corpuscular HGB Conc 32.6 g/dl (32-36); Mean Corpuscular Hemoglobin 32.6 pg (26-34); Monocytes Absolute Auto 0.7 K/mm3 (0.1-0.6); Monocytes Percent Auto 8.9 % (2.6-8.5); Neutrophils Absolute Auto 5.9 K/mm3 (1.3-6.7); Platelet Count Result 259 k/mm3 (150-375); Red Blood Count 2.58 M/mm3 (4.2-5.4); Red Cell Distribution Width 14.2 % (11.5-14.5); White Blood Count 7.7 K/mm3 (4.5-10.0)
[2020-02-15 14:13] LABS: Prothrombin Time 13.4 Seconds (11.1-14.7)
[2020-02-15 14:14] LABS: Partial Thromboplastin Time 26.5 SECONDS (22.3-36.8)
[2020-02-15 14:15] LABS: Anion Gap 14 mmol/L (8-16); Blood Urea Nitrogen 56 mg/dL (7-17); Calcium 8.7 mg/dL (8.4-10.2); Carbon Dioxide 21 mmol/L (22-30); Chloride 101 mmol/L (98-107); Estimated CRCL calculation 21 ml/min; Estimated Glomerular Filt Rate 20; Glucose 267 mg/dL (65-105); Potassium 4.2 mmol/L (3.4-5.0); Sodium 136 mmol/L (137-145)
[2020-02-15 14:27] LABS: NT Pro B Type Natriuretic Pept 23300 PG/ML (5-100); Troponin I 0.023 ng/mL (0.000-0.034)
--- NOTE | 2020-02-15 14:41 | ED.SOB ---
HPI - SOB/Dyspnea General Chief Complaint: Shortness of Breath/Dyspnea Stated Complaint: retaining fluids, CHF, high blood sugar Time Seen by Provider: 02/15/20 14:40 Source: patient and family Mode of arrival: ambulatory Limitations: no limitations History of Present Illness HPI Narrative: Patient is a 69-year-old female with a history of type 2 diabetes, chronic kidney disease, congestive heart failure who presents for evaluation of worsening extremity edema, shortness of breath. Patient states she had been seen by her executive director global brand marketing recently and had her Lasix dose increased but despite this her swelling is worsened. She denies any chest pain or palpitations. No cough. No fever, chills or myalgias. Patient states her glucoses have been more difficult to control she has had some decreased oral intake. No recent sick contacts. Patient follows with Dr. Ritter. Related Data Home Medications Medication Instructions Recorded Confirmed amlodipine 10 mg PO QAM 12/29/18 01/11/20 aspirin 81 mg PO QPM 12/29/18 01/11/20 atorvastatin 40 mg PO QPM 12/29/18 01/11/20 metoprolol tartrate 100 mg PO BID 12/29/18 01/11/20 multivitamin 1 cap PO QAM 12/29/18 01/11/20 alendronate 70 mg PO WEEKLY 03/25/19 01/11/20 Ocuvite with Lutein 1 tablet PO DAILY 04/18/19 01/11/20 calcium carbonate-vitamin D3 1 tablet PO DAILY 04/18/19 01/11/20 cyclobenzaprine 10 mg PO TID PRN 04/18/19 01/11/20 fluticasone propionate 2 spray INTRANASAL DAILY 04/18/19 01/11/20 furosemide [Lasix] 40 mg PO DAILY 04/18/19 01/11/20 insulin aspart U-100 [Novolog 1 sliding scale dose SUBCUT 04/18/19 01/11/20 U-100 Insulin aspart] USEASDIRECTD Lantus U-100 Insulin 4 units SUBCUT DAILY 04/23/19 01/11/20 Lantus U-100 Insulin 3 units SUBCUT HS 11/23/19 01/11/20 hydralazine 50 mg PO BID PRN 11/23/19 01/11/20 olmesartan 20 mg PO DAILY 01/11/20 01/11/20 Allergies Allergy/AdvReac Type Severity Reaction Status Date / Time tramadol AdvReac Severe NAUSEA Verified 02/15/20 13:46 codeine AdvReac Intermediate MAKES HER Verified 02/15/20 13:46 FEEL BAD hydrocodone [From [place]] AdvReac Vomiting Verified 02/15/20 13:46 Review of Systems Review of Systems: Narrative: CONSTITUTIONAL: Denies fever ENT: Denies rhinorrhea, congestion, sore throat, or otalgia. CARDIOVASCULAR: Denies chest pain, palpitations, reports leg and arm edema RESPIRATORY: Denies cough, reports shortness of breath GASTROINTESTINAL: Denies abdominal pain, nausea, vomiting, or diarrhea. GENITOURINARY: Denies dysuria or hematuria. SKIN: Denies rash or itching. MUSCULOSKELETAL: Denies back pain, joint pain, or myalgia. NEUROLOGIC: Denies headache, numbness, or weakness. [facility] Past Medical History Medical History Acute on chronic diastolic (congestive) heart failure Chronic anemia Chronic kidney disease, stage 3 Colon polyps Colonoscopy in August 2017 showing internal hemorrhoids. Diabetes mellitus with stage 3 chronic kidney disease, with long-term current use of insulin Hand fracture Hyperlipidemia Hypertension Mitral valve prolapse Moderate aortic stenosis By echo in 2018. Osteopenia Post-menopausal Retinopathy Type 2 diabetes mellitus with insulin therapy Surgical History Surgical History History of bilateral tubal ligation S/P cataract surgery bilateral 10/2019 Family History Family History Mother Hypertension DVT (deep venous thrombosis) Vertigo Father Hypertension Cerebrovascular accident Sibling Graves disease Vertigo Sibling Family history of thyroid disease Family history of obesity Mother Family history of cataracts Other Family history of arthritis Family history of hearing loss Social History Social History Social History: The patient lives in her
[2020-02-15] MEDS: FUROSEMIDE INJ 40 MG/4 ML VIAL IV PUSH ×2 (14:53→20:23)
[2020-02-15 15:57] LABS: D Dimer 3.03 ug/mL (<0.48)
[2020-02-15 18:08] LABS: Glucose Point of Care 140 (65-105)
--- NOTE | 2020-02-15 18:44 | PC.NURSE ---
This patient, Mine Dwyer, was admitted to [facility] Surg Room 325-01. Patient/family oriented to hospital policies and general routines including ID bracelet, bed and alarms, visiting hours, pain management, procedures, bathroom and other care routines, personal items, smoking policy, room service/diet, and visiting hours. Information on how to activate the Rapid Response Team has been discussed. Patient/Family are encouraged to report perceived risks to care and to ask questions if they do not understand what they are told or what they should do.
--- NOTE | 2020-02-15 21:06 | PM.IMHP ---
H&P: HPI History of Present Illness Date/Time: 02/15/20 21:06 Chief Complaint: Increased edema to lower extremity Narrative: Mine Dwyer is a 69 year old female who sees Dr. metcalf as her socially responsible investment adviser. She also has chronic renal disease stage 3-4. She is also insulin-dependent diabetic. It looks like the patient just recently started her care with Dr. metcalf this past November. It was noted that the patient has chronic lymphedema to the left leg and she wears some type of device for the lymphedema. Type 1 diabetes moderate and diastolic failure grade 2 according to the cardiology's notes. The patient stated that she has had a 30 lb weight gain in the last 2 months. Her Lasix had gradually been increased but the patient still continues to swell. And gain weight. Patient has been on spironolactone and Lasix as well. Her Lasix 40 mg had been increased to 3 to 4 times a day. Her renal function has increasingly gotten worse. According to the cardiology note the patient had an echo performed on 11/23/2019 it was a complete 2 dimensional color-flow and Doppler transthoracic echo. She EF of 50% grade 2 diastolic dysfunction mild aortic valve regurgitation. Moderate aortic valve stenosis. Mild to moderate mitral valve regurgitation. Moderate tricuspid regurgitation. Severe pulmonary hypertension. With her estimated pulmonary arterials pressure at 75 mmHg. The patient tells me that she recently had a cardiac catheterization which she had some mild blockages but they are just going to be treated medically. She also stated that she had a right leg peripheral catheterization and was told that she has some smaller veins but they are not going to be removed at this time. But there was no blockages. She was not sure what type of Doppler she had to her legs if they were venous or arterial. Patient tells me she has no history of any DVTs. She is not on any anticoagulation. She has chronic anemia with Her H&H being 8.4 and 25.8 which appears to be her baseline. Her creatinine is 2.4 today Which has increased from 1.3 in April of 2019. The patient does not recall seeing any dining room coordinator. Opacities in the lungs which could reflect pneumonia and/or pulmonary edema. The patient tells me that she weighs herself every day and that she has been monitoring what she eats. She tells me she even skip the ham this year at [place]. Dr. metcalf has been consulted. The patient was given IV Lasix in the emergency room. And she is currently on room air. The patient is being admitted to observation status on the date of service 02/15/2020 Review of Systems Review of Systems: All systems reviewed & are unremarkable except as noted in HPI and below Constitutional: Constitutional: Reports as per HPI and Reports no additional constitutional complaints Eyes: Eyes: Reports as per HPI and Reports no additional eye complaints ENT: Reports system reviewed and no additional complaints, except as documented and Reports Normal hearing present Cardiovascular: Cardiovascular: Reports no additional cardiovascular complaints Respiratory: Respiratory: Reports no additional respiratory complaints and Reports no additional respiratory complaints Gastrointestinal: Gastrointestinal: Reports as per HPI and Reports no additional gastrointestinal complaints Musculoskeletal: Musculoskeletal: Reports no additional musculoskeletal complaints Integumentary/Breasts: Skin/Breast: Reports system reviewed and no additional complaints, except as docu and Reports as per HPI Neurologic: Reports system reviewed and no additional complaints, except as documented, Reports as per HPI and Reports Normal hearing present Psychiatric: Psychiatric: Reports no additional psychiatric complaints and Reports as per HPI Endocrine: Endocrine: Reports no additional endocrine complaints Hematologic/Lymphatic: Hematologic/Lymphatic: Reports no additional hematologic/lymphatic complaints Aller
[2020-02-15] MEDS: METOPROLOL TARTRATE 50 MG TAB 100 MG PO (21:55)
[2020-02-15] MEDS: ASPIRIN 81 MG CHEWABLE TABLET PO (21:56)
[2020-02-15] MEDS: HEPARIN SODIUM 5,000 UNITS/ML VIAL 5000 UNITS SUB-Q (21:56)
[2020-02-15] MEDS: INSULIN GLARGINE (*BKC) 100 UNITS/ML SUB-Q (21:56)
[2020-02-15] MEDS: ATORVASTATIN 40 MG TABLET PO (21:56)
[2020-02-15 22:24] LABS: Glucose Point of Care 212 (65-105)
[2020-02-16] VITALS (9 sets, daily range): BP systolic 137–166; BP diastolic 44–64; PULSE 53–64; RESP 16–20; TEMP 36.7–37.3; O2SAT 94–99
[2020-02-16 06:28] LABS: Basophils Absolute Auto 0.1 K/mm3 (0.0-0.1); Eosinophils Absolute Auto 0.4 K/mm3 (0-0.3); Eosinophils Percent Auto 6.6 % (0-4.4); Hematocrit 21.6 % (37.0-47.0); Hemoglobin 7.1 g/dL (12.0-15.0); Immature Granulocyte Absolute 0.02 K/mm3 (0.00-0.031); Immature Granulocyte Percent A 0.3 % (0-0.5); Lymphocytes Percent Auto 21.9 % (18.3-44.2); Mean Corpuscular HGB Conc 32.9 g/dl (32-36); Mean Corpuscular Hemoglobin 31.6 pg (26-34); Mean Platelet Volume 10.9 fl (7.4-10.4); Monocytes Absolute Auto 0.7 K/mm3 (0.1-0.6); Monocytes Percent Auto 11.8 % (2.6-8.5); Neutrophils Absolute Auto 3.5 K/mm3 (1.3-6.7); Neutrophils Percent Auto 58.4 % (45.5-73.1); Platelet Count Result 227 k/mm3 (150-375); Red Blood Count 2.25 M/mm3 (4.2-5.4); Red Cell Distribution Width 13.8 % (11.5-14.5); White Blood Count 5.9 K/mm3 (4.5-10.0)
[2020-02-16 06:48] LABS: Alanine Aminotransferase 21 U/L (4-35); Alkaline Phosphatase 71 U/L (38-126); Anion Gap 8 mmol/L (8-16); Aspartate Amino Transferase 34 U/L (14-36); Bilirubin,Total 0.4 mg/dL (0.2-1.3); Blood Urea Nitrogen 55 mg/dL (7-17); Carbon Dioxide 25 mmol/L (22-30); Chloride 102 mmol/L (98-107); Estimated CRCL calculation 22 ml/min; Estimated Glomerular Filt Rate 21; Glucose 106 mg/dL (65-105); Magnesium 1.9 mg/dL (1.6-2.3); Sodium 135 mmol/L (137-145)
[2020-02-16 08:13] LABS: Glucose Point of Care 123 (65-105)
[2020-02-16] MEDS: FLUTICASONE PROPIONATE 0.05% NA SPR 16 GM BTL (*BKC) 2 SPRAY NASAL (09:44)
[2020-02-16] MEDS: OLMESARTAN MEDOXOMIL 20 MG TABLET PO (09:44)
[2020-02-16] MEDS: OPTI-GEN TAB 1 TABLET PO (09:44)
[2020-02-16] MEDS: FUROSEMIDE INJ 40 MG/4 ML VIAL IV PUSH ×2 (09:44→20:17)
[2020-02-16] MEDS: MULTIVITAMINS THERAPEUTIC TAB (*BKC) 1 TABLET PO (09:44)
[2020-02-16] MEDS: amLODIPine BESYLATE 5 MG TABLET 10 MG PO (09:44)
--- NOTE | 2020-02-16 09:44 | PM.CNCAR ---
Assessment and Plan Assessment and plan (1) Acute on chronic diastolic (congestive) heart failure: Code(s): I50.33 - Acute on chronic diastolic (congestive) heart failure Status: Acute Assessment and Plan: Patient is a 69-year-old woman with history of heart failure with preserved ejection fraction, lymphedema of the left leg, severe pulmonary hypertension, MIRELA (awaiting CPAP ), moderate aortic stenosis, mitral valve prolapse, hypertension, hyperlipidemia, diabetes mellitus type 1, chronic kidney disease, chronic anemia, who is seen in cardiac consultation for acute on chronic heart failure with preserved ejection fraction. -she has acute on chronic heart failure with preserved ejection fraction occurring in the setting of severe pulmonary hypertension with untreated sleep apnea, acute on chronic kidney disease, and acute on chronic anemia. -she needs regular initiation of CPAP at home and has just received her CPAP device. -given her elevated D-dimer this admission, ventilation perfusion scan and lower extremity Doppler pending. -Continue Lasix 40 mg IV q.12 hours with careful monitoring of renal functionand electrolytes. -holding her outpatient Aldactone initially given her progressive elevation of creatinine. -consider renal service consultation. (2) Acute kidney injury superimposed on chronic kidney disease: Code(s): N17.9 - Acute kidney failure, unspecified; N18.9 - Chronic kidney disease, unspecified Status: Acute Assessment and Plan: -she may have cardio-renal syndrome in the setting of severe pulmonary hypertension and acute on chronic diastolic heart failure. -consider renal service consultation. (3) Suspected COVID-19 virus infection: Code(s): Z20.822 - Contact with and (suspected) exposure to COVID-19 Status: Acute Assessment and Plan: -COVID-19 PCR pending. (4) HTN (hypertension): Qualifiers: Hypertension type: essential hypertension Qualified Code(s): I10 - Essential (primary) hypertension Code(s): I10 - Essential (primary) hypertension Status: Acute Assessment and Plan: -blood pressure mildly elevated intermittently. -monitor blood pressure with continued diuresis. (5) Coronary artery disease: Code(s): I25.10 - Atherosclerotic heart disease of [place] coronary artery without angina pectoris Status: Acute Assessment and Plan: -continue aspirin and statin as per outpatient regimen. -obtain lipid panel fasting. -per recent left heart catheterization, she has mild coronary artery disease. (6) Aortic valve stenosis: Code(s): I35.0 - Nonrheumatic aortic (valve) stenosis Status: Acute Assessment and Plan: -she has moderate-severe aortic valve stenosis based on recent echo and left heart catheterization findings. -she may need evaluation for TAVR in the coming months in setting of her progressive heart failure. (7) Acute on chronic anemia: Code(s): D64.9 - Anemia, unspecified Status: Acute Assessment and Plan: -her hemoglobin decreased from 8.8 to 7.1. -carefully monitor hemoglobin and transfuse to keep hemoglobin greater than or equal to 8. History of Present Illness History of Present Illness Consult date/time: 02/16/20 09:44 Patient is a 69-year-old woman with history of heart failure with preserved ejection fraction, lymphedema of the left leg, severe pulmonary hypertension, MIRELA (awaiting CPAP ), moderate aortic stenosis, mitral valve prolapse, hypertension, hyperlipidemia, diabetes mellitus type 1, chronic kidney disease, chronic anemia, who is seen in cardiac consultation for acute on chronic heart failure with preserved ejection fraction. Patient presented with complaints of 30 lb weight gain in the last 2 months. Patient reports compliance with her medications and a low-sodium diet and denies any alcohol or tobacco use. She reports chronic left greater than right leg lymph
[2020-02-16] MEDS: METOPROLOL TARTRATE 50 MG TAB 100 MG PO ×2 (09:45→20:18)
[2020-02-16] MEDS: INSULIN GLARGINE (*BKC) 100 UNITS/ML SUB-Q ×2 (09:45→20:40)
[2020-02-16] MEDS: HEPARIN SODIUM 5,000 UNITS/ML VIAL 5000 UNITS SUB-Q ×2 (09:45→20:17)
[2020-02-16 11:13] LABS: Basophils Absolute Auto 0.1 K/mm3 (0.0-0.1); Basophils Percent Auto 1.2 % (0.2-1.2); Eosinophils Absolute Auto 0.3 K/mm3 (0-0.3); Eosinophils Percent Auto 4.8 % (0-4.4); Hematocrit 25.5 % (37.0-47.0); Hemoglobin 7.9 g/dL (12.0-15.0); Immature Granulocyte Absolute 0.02 K/mm3 (0.00-0.031); Immature Granulocyte Percent A 0.3 % (0-0.5); Immature Platelet Fraction Pct 5.1 % (0.9-11.2); Lymphocytes Absolute Auto 0.87 K/mm3 (0.9-3.2); Lymphocytes Percent Auto 13.1 % (18.3-44.2); Mean Corpuscular Hemoglobin 32.2 pg (26-34); Mean Corpuscular Volume 104.1 fl (80-100); Mean Platelet Volume 11.5 fl (7.4-10.4); Monocytes Absolute Auto 0.7 K/mm3 (0.1-0.6); Monocytes Percent Auto 10.4 % (2.6-8.5); Neutrophils Absolute Auto 4.7 K/mm3 (1.3-6.7); Neutrophils Percent Auto 70.2 % (45.5-73.1); Platelet Count Result 186 k/mm3 (150-375); Red Blood Count 2.45 M/mm3 (4.2-5.4); Red Cell Distribution Width 14.4 % (11.5-14.5); White Blood Count 6.6 K/mm3 (4.5-10.0)
[2020-02-16 11:49] LABS: Glucose Point of Care 224 (65-105)
[2020-02-16 12:08] LABS: Eosinophils Absolute Manual 0.06 K/mm3 (0.02-0.5); Eosinophils Percent Manual 1 % (0-4); Large Platelets Present; Lymphocytes Absolute Manual 1.25 K/mm3 (1.1-4.5); Metamyelocytes Percent 1 %; Monocytes Absolute Manual 0.46 K/mm3 (0.1-0.90); Monocytes Percent Manual 7 % (3-9); Neutrophils Percent Manual 72 % (46-73); Platelet Estimate Adequate (Adequate); Total Cells Counted 100
[2020-02-16 12:09] LABS: Acanthocytes 1+ (NORMAL); Crenated RBC 2+ (NORMAL); Helmet Cells 2+ (NORMAL)
[2020-02-16] MEDS: INSULIN ASPART (*BKC) 100 UNITS/ML SUB-Q ×3 (13:13→22:02)
--- NOTE | 2020-02-16 13:29 | PM.IMPN ---
Progress Note: A&P Assessment and Plan (1) Acute on chronic diastolic (congestive) heart failure: Code(s): I50.33 - Acute on chronic diastolic (congestive) heart failure Status: Acute Assessment and Plan: Dr. metcalf has been consulted and I am awaiting further recommendation for her CHF. With to monitor her renal function closely is it seems to be worsening with increase of her renal failure. Her Lasix has been started IV twice a day now. Continue with metoprolol and Benicar. 02/16/20 13:29 Patient is 69 with history of acute on chronic diastolic dysfunction patient also has history lower extremity limp or edema worse on the left lower extremity patient had been complaining shortness of breath and lower extremity edema seen by primary care and was initially was started on Lasix 40 mg q.day symptoms were not improving and it was advanced to b.i.d. and then to t.i.d. without much much improvement, patient presented emergency department with a complaint shortness of breath and lower extremity edema patient seen by snow fence erector patient being diuresed with IV Lasix 40 mg b.i.d., patient with acute on chronic kidney disease will continue to monitor patient kidney function patient is being diuresed, patient states feeling little better compared to when she arrived, patient denies any chest pain shortness of breath palpitation fever or chills, patient is being tested for COVID-19 and isolated. (2) Lymphedema: Code(s): I89.0 - Lymphedema, not elsewhere classified Status: Acute Assessment and Plan: The patient stated she recently had Dopplers but she was not sure if his arterial venous so I did recheck her venous Dopplers. I doubt that it is a DVT. The patient has chronic lymphedema and has a machine at home that she uses. May consider SCDs if her venous Dopplers are negative. (3) Chronic anemia: Code(s): D64.9 - Anemia, unspecified Status: Chronic Assessment and Plan: Could be related to chronic renal failure. (4) Hyperlipidemia: Qualifiers: Hyperlipidemia type: unspecified Qualified Code(s): E78.5 - Hyperlipidemia, unspecified Code(s): E78.5 - Hyperlipidemia, unspecified Status: Acute Assessment and Plan: Continue with atorvastatin. (5) HTN (hypertension): Qualifiers: Hypertension type: essential hypertension Qualified Code(s): I10 - Essential (primary) hypertension Code(s): I10 - Essential (primary) hypertension Status: Acute Assessment and Plan: The patient is on metoprolol, Lasix, Benicar, and hydralazine. The patient is also on amlodipine which could be causing some of her edema as well. (6) Diabetes mellitus with stage 3 chronic kidney disease, with long-term current use of insulin: Qualifiers: Diabetes mellitus type: type 2 Qualified Code(s): E11.22 - Type 2 diabetes mellitus with diabetic chronic kidney disease; N18.3 - Chronic kidney disease, stage 3 (moderate); Z79.4 - care home (current) use of insulin Code(s): E11.22 - Type 2 diabetes mellitus with diabetic chronic kidney disease; N18.3 - Chronic kidney disease, stage 3 (moderate); Z79.4 - vermin exterminator (current) use of insulin Status: Acute Assessment and Plan: Continue with Lantus. Check A1c. Sliding scale insulin. (7) Suspected COVID-19 virus infection: Code(s): Z20.822 - Contact with and (suspected) exposure to COVID-19 Status: Acute Assessment and Plan: The patient has been placed on droplet isolation. Continue to monitor. Subjective Date/time seen: 02/16/20 13:29 Patient is 69 with history of acute on chronic diastolic dysfunction patient also has history lower extremity limp or edema worse on the left lower extremity patient had been complaining shortness of breath and lower extremity edema seen by primary care and was initially was started on Lasix 40 mg q.day symptoms were not improving and it was advan
[2020-02-16 16:56] LABS: Glucose Point of Care 281 (65-105)
[2020-02-16] MEDS: ASPIRIN 81 MG CHEWABLE TABLET PO (17:47)
[2020-02-16] MEDS: ATORVASTATIN 40 MG TABLET PO (17:48)
[2020-02-16 20:08] LABS: SARS-CoV-2 RNA PCR Negative
[2020-02-16 22:52] LABS: Glucose Point of Care 292 (65-105)
[2020-02-16 22:52] LABS: Glucose Point of Care 298 (65-105)
[2020-02-16 23:06] LABS: Glucose Point of Care 284 (65-105)
[2020-02-16 23:06] LABS: Glucose Point of Care 253 (65-105)
[2020-02-17] VITALS (7 sets, daily range): BP systolic 149–153; BP diastolic 47–54; PULSE 60–74; RESP 18–20; TEMP 36.1–36.8; O2SAT 98–100
[2020-02-17 06:25] LABS: Hematocrit 23.2 % (37.0-47.0); Hemoglobin 7.5 g/dL (12.0-15.0); Mean Corpuscular HGB Conc 32.3 g/dl (32-36); Mean Corpuscular Hemoglobin 32.1 pg (26-34); Mean Corpuscular Volume 99.1 fl (80-100); Mean Platelet Volume 10.8 fl (7.4-10.4); Platelet Count Result 205 k/mm3 (150-375); Red Blood Count 2.34 M/mm3 (4.2-5.4); Red Cell Distribution Width 13.9 % (11.5-14.5); White Blood Count 6.2 K/mm3 (4.5-10.0)
[2020-02-17 06:38] LABS: Anion Gap 6 mmol/L (8-16); Blood Urea Nitrogen 57 mg/dL (7-17); Calcium 7.9 mg/dL (8.4-10.2); Carbon Dioxide 25 mmol/L (22-30); Chloride 102 mmol/L (98-107); Cholesterol 128 mg/dL (0-200); Estimated CRCL calculation 23 ml/min; Estimated Glomerular Filt Rate 22; Glucose 174 mg/dL (65-105); HDL Direct 40 mg/dL; Magnesium 1.7 mg/dL (1.6-2.3); Potassium 4.4 mmol/L (3.4-5.0); Sodium 133 mmol/L (137-145); Triglycerides 80 mg/dL (<150)
[2020-02-17 06:44] LABS: LDL Cholesterol Direct 70 mg/dL
[2020-02-17 08:22] LABS: Glucose Point of Care 226 (65-105)
[2020-02-17] MEDS: amLODIPine BESYLATE 5 MG TABLET 10 MG PO (09:46)
[2020-02-17] MEDS: OPTI-GEN TAB 1 TABLET PO (09:46)
[2020-02-17] MEDS: MULTIVITAMINS THERAPEUTIC TAB (*BKC) 1 TABLET PO (09:46)
[2020-02-17] MEDS: HEPARIN SODIUM 5,000 UNITS/ML VIAL 5000 UNITS SUB-Q ×2 (09:46→20:54)
[2020-02-17] MEDS: FUROSEMIDE INJ 40 MG/4 ML VIAL IV PUSH ×2 (09:46→20:55)
[2020-02-17] MEDS: OLMESARTAN MEDOXOMIL 20 MG TABLET PO (09:47)
[2020-02-17] MEDS: METOPROLOL TARTRATE 50 MG TAB 100 MG PO ×2 (09:47→20:55)
[2020-02-17] MEDS: FLUTICASONE PROPIONATE 0.05% NA SPR 16 GM BTL (*BKC) 2 SPRAY NASAL (09:47)
[2020-02-17] MEDS: INSULIN GLARGINE (*BKC) 100 UNITS/ML SUB-Q ×2 (09:48→20:55)
[2020-02-17] MEDS: INSULIN ASPART (*BKC) 100 UNITS/ML SUB-Q ×3 (09:48→17:39)
[2020-02-17 11:51] LABS: Glucose Point of Care 373 (65-105)
--- NOTE | 2020-02-17 13:12 | PM.PNCARD ---
Progress Note: A&P Assessment and Plan (1) Acute on chronic diastolic (congestive) heart failure: Code(s): I50.33 - Acute on chronic diastolic (congestive) heart failure Status: Acute Assessment and Plan: Patient is a 69-year-old woman with history of heart failure with preserved ejection fraction, lymphedema of the left leg, severe pulmonary hypertension, MIRELA (awaiting CPAP ), moderate aortic stenosis, mitral valve prolapse, hypertension, hyperlipidemia, diabetes mellitus type 1, chronic kidney disease, chronic anemia, who is seen in cardiac consultation for acute on chronic heart failure with preserved ejection fraction. -she has acute on chronic heart failure with preserved ejection fraction occurring in the setting of severe pulmonary hypertension with untreated sleep apnea, acute on chronic kidney disease, and acute on chronic anemia. -she needs regular initiation of CPAP at home and has just received her CPAP device. -given her elevated D-dimer this admission, ventilation perfusion scan ordered and is still pending (discussed with nurse) and lower extremity Doppler negative. -Continue Lasix 40 mg IV q.12 hours with careful monitoring of renal functionand electrolytes. -holding her outpatient Aldactone initially given her progressive elevation of creatinine. -consider renal service consultation. -given her a new edema involving the left arm and left breast, stopped amlodipine and began hydralazine 25 mg b.i.d. for additional blood pressure control. Await results of lung perfusion scan for evaluation for pulmonary embolism. (2) Acute kidney injury superimposed on chronic kidney disease: Code(s): N17.9 - Acute kidney failure, unspecified; N18.9 - Chronic kidney disease, unspecified Status: Acute Assessment and Plan: -she may have cardio-renal syndrome in the setting of severe pulmonary hypertension and acute on chronic diastolic heart failure. -consider renal service consultation. (3) Suspected COVID-19 virus infection: Code(s): Z20.822 - Contact with and (suspected) exposure to COVID-19 Status: Acute Assessment and Plan: -COVID-19 PCR negative. (4) HTN (hypertension): Qualifiers: Hypertension type: essential hypertension Qualified Code(s): I10 - Essential (primary) hypertension Code(s): I10 - Essential (primary) hypertension Status: Acute Assessment and Plan: -blood pressure mildly elevated. -monitor blood pressure with continued diuresis. -given her chronic lower extremity and new left upper extremity edema, switched amlodipine to hydralazine. (5) Coronary artery disease: Code(s): I25.10 - Atherosclerotic heart disease of [place] coronary artery without angina pectoris Status: Acute Assessment and Plan: -continue aspirin and statin as per outpatient regimen. -obtain lipid panel fasting with LDL 70. -per recent left heart catheterization, she has mild coronary artery disease. (6) Aortic valve stenosis: Code(s): I35.0 - Nonrheumatic aortic (valve) stenosis Status: Acute Assessment and Plan: -she has moderate-severe aortic valve stenosis based on recent echo and left heart catheterization findings. -she may need evaluation for TAVR in the coming months in setting of her progressive heart failure. (7) Acute on chronic anemia: Code(s): D64.9 - Anemia, unspecified Status: Acute Assessment and Plan: -her hemoglobin decreased from 8.8 to 7.1. Most recent hemoglobin 7.5, stable. -carefully monitor hemoglobin and transfuse to keep hemoglobin greater than or equal to 8. Subjective Date/time seen: 02/17/20 13:12 Patient denies chest pain. She denies dyspnea. She reports some mild decrease in her lower extremity edema, which remains worse in her left leg chronically with lymphedema. She reports increased left breast and left arm edema despite not having had an IV in the left arm this admission per
--- NOTE | 2020-02-17 13:46 | PM.IMPN ---
Progress Note: A&P Assessment and Plan (1) Acute on chronic diastolic (congestive) heart failure: Code(s): I50.33 - Acute on chronic diastolic (congestive) heart failure Status: Acute Assessment and Plan: Dr. metcalf has been consulted and I am awaiting further recommendation for her CHF. With to monitor her renal function closely is it seems to be worsening with increase of her renal failure. Her Lasix has been started IV twice a day now. Continue with metoprolol and Benicar. 02/17/20 13:46 Patient is 69 with history of acute on chronic diastolic dysfunction patient also has history lower extremity limp or edema worse on the left lower extremity patient had been complaining shortness of breath and lower extremity edema seen by primary care and was initially was started on Lasix 40 mg q.day symptoms were not improving and it was advanced to b.i.d. and then to t.i.d. without much much improvement, patient presented emergency department with a complaint shortness of breath and lower extremity edema patient seen by plant breeder scientist patient being diuresed with IV Lasix 40 mg b.i.d., patient with acute on chronic kidney disease will continue to monitor patient kidney function patient is being diuresed. Today patient covid test is negative however patient urine production is poor and patient is taking in too much fluid, will restrict the patient fluid intake to 1200 cc per day, will continue IV Lasix 40 mg b.i.d., patient states does feel little better compared to when he arrived but still complains swelling of the arms and legs, patient will be seen by her plant breeder scientist and further recommendation to follow. (2) Lymphedema: Code(s): I89.0 - Lymphedema, not elsewhere classified Status: Acute Assessment and Plan: The patient stated she recently had Dopplers but she was not sure if his arterial venous so I did recheck her venous Dopplers. I doubt that it is a DVT. The patient has chronic lymphedema and has a machine at home that she uses. May consider SCDs if her venous Dopplers are negative. (3) Chronic anemia: Code(s): D64.9 - Anemia, unspecified Status: Chronic Assessment and Plan: Could be related to chronic renal failure. (4) Hyperlipidemia: Qualifiers: Hyperlipidemia type: unspecified Qualified Code(s): E78.5 - Hyperlipidemia, unspecified Code(s): E78.5 - Hyperlipidemia, unspecified Status: Acute Assessment and Plan: Continue with atorvastatin. (5) HTN (hypertension): Qualifiers: Hypertension type: essential hypertension Qualified Code(s): I10 - Essential (primary) hypertension Code(s): I10 - Essential (primary) hypertension Status: Acute Assessment and Plan: The patient is on metoprolol, Lasix, Benicar, and hydralazine. The patient is also on amlodipine which could be causing some of her edema as well. (6) Diabetes mellitus with stage 3 chronic kidney disease, with long-term current use of insulin: Qualifiers: Diabetes mellitus type: type 2 Qualified Code(s): E11.22 - Type 2 diabetes mellitus with diabetic chronic kidney disease; N18.3 - Chronic kidney disease, stage 3 (moderate); Z79.4 - senior living (current) use of insulin Code(s): E11.22 - Type 2 diabetes mellitus with diabetic chronic kidney disease; N18.3 - Chronic kidney disease, stage 3 (moderate); Z79.4 - intermediate designer (current) use of insulin Status: Acute Assessment and Plan: Continue with Lantus. Check A1c. Sliding scale insulin. (7) Suspected COVID-19 virus infection: Code(s): Z20.822 - Contact with and (suspected) exposure to COVID-19 Status: Acute Assessment and Plan: The patient has been placed on droplet isolation. Continue to monitor. Subjective Date/time seen: 02/17/20 13:46 Patient is 69 with history of acute on chronic diastolic dysfunction patient also has history lower extremity limp or edema worse on
[2020-02-17 17:23] LABS: Glucose Point of Care 323 (65-105)
[2020-02-17] MEDS: ASPIRIN 81 MG CHEWABLE TABLET PO (17:37)
[2020-02-17] MEDS: ATORVASTATIN 40 MG TABLET PO (17:37)
[2020-02-17] MEDS: hydrALAZINE HCL 25 MG TABLET PO (17:38)
[2020-02-17 21:46] LABS: Glucose Point of Care 293 (65-105)
[2020-02-17 22:06] LABS: Glucose Point of Care 309 (65-105)
[2020-02-18] VITALS (11 sets, daily range): BP systolic 158–173; BP diastolic 51–58; PULSE 53–80; RESP 18–20; TEMP 36.4–36.9; O2SAT 96–98
[2020-02-18 07:45] LABS: Hematocrit 22.8 % (37.0-47.0); Hemoglobin 7.2 g/dL (12.0-15.0); Mean Corpuscular HGB Conc 31.6 g/dl (32-36); Mean Corpuscular Hemoglobin 31.3 pg (26-34); Mean Corpuscular Volume 99.1 fl (80-100); Mean Platelet Volume 11.4 fl (7.4-10.4); Platelet Count Result 215 k/mm3 (150-375); Red Cell Distribution Width 13.9 % (11.5-14.5); White Blood Count 6.8 K/mm3 (4.5-10.0)
[2020-02-18 08:02] LABS: Anion Gap 5 mmol/L (8-16); Blood Urea Nitrogen 54 mg/dL (7-17); Carbon Dioxide 26 mmol/L (22-30); Chloride 102 mmol/L (98-107); Estimated CRCL calculation 24 ml/min; Estimated Glomerular Filt Rate 23; Glucose 305 mg/dL (65-105); Potassium 4.4 mmol/L (3.4-5.0); Sodium 133 mmol/L (137-145)
[2020-02-18 08:38] LABS: Magnesium 1.7 mg/dL (1.6-2.3)
[2020-02-18 08:54] LABS: Glucose Point of Care 337 (65-105)
[2020-02-18] MEDS: INSULIN ASPART (*BKC) 100 UNITS/ML SUB-Q ×3 (09:43→17:53)
[2020-02-18] MEDS: INSULIN GLARGINE (*BKC) 100 UNITS/ML SUB-Q ×2 (09:44→22:11)
[2020-02-18] MEDS: FLUTICASONE PROPIONATE 0.05% NA SPR 16 GM BTL (*BKC) 2 SPRAY NASAL (09:49)
[2020-02-18] MEDS: HEPARIN SODIUM 5,000 UNITS/ML VIAL 5000 UNITS SUB-Q ×2 (09:50→21:53)
[2020-02-18] MEDS: FUROSEMIDE INJ 40 MG/4 ML VIAL IV PUSH ×2 (09:50→21:53)
[2020-02-18] MEDS: METOPROLOL TARTRATE 50 MG TAB 100 MG PO ×2 (09:51→21:53)
[2020-02-18] MEDS: hydrALAZINE HCL 25 MG TABLET PO ×2 (09:51→17:02)
[2020-02-18] MEDS: OLMESARTAN MEDOXOMIL 20 MG TABLET PO (09:52)
[2020-02-18] MEDS: MULTIVITAMINS THERAPEUTIC TAB (*BKC) 1 TABLET PO (09:52)
[2020-02-18] MEDS: OPTI-GEN TAB 1 TABLET PO (09:52)
[2020-02-18 12:36] LABS: Glucose Point of Care 374 (65-105)
--- NOTE | 2020-02-18 13:07 | PM.PNCARD ---
Progress Note: A&P Assessment and Plan (1) Acute on chronic diastolic (congestive) heart failure: Code(s): I50.33 - Acute on chronic diastolic (congestive) heart failure Status: Acute Assessment and Plan: Patient is a 69-year-old woman with history of heart failure with preserved ejection fraction, lymphedema of the left leg, severe pulmonary hypertension, MIRELA (awaiting CPAP ), moderate aortic stenosis, mitral valve prolapse, hypertension, hyperlipidemia, diabetes mellitus type 1, chronic kidney disease, chronic anemia, who is seen in cardiac consultation for acute on chronic heart failure with preserved ejection fraction. -she has acute on chronic heart failure with preserved ejection fraction occurring in the setting of severe pulmonary hypertension with untreated sleep apnea, acute on chronic kidney disease, and acute on chronic anemia. -she needs regular initiation of CPAP at home and has just received her CPAP device. -given her elevated D-dimer this admission, lower extremity Doppler negative. -Continue Lasix 40 mg IV q.12 hours with careful monitoring of renal functionand electrolytes. -holding her outpatient Aldactone initially given her progressive elevation of creatinine. -consider renal service consultation. -given her a new edema involving the left arm and left breast, stopped amlodipine and began hydralazine 25 mg b.i.d. for additional blood pressure control. Await results of lung perfusion scan for evaluation for pulmonary embolism. (2) Acute kidney injury superimposed on chronic kidney disease: Code(s): N17.9 - Acute kidney failure, unspecified; N18.9 - Chronic kidney disease, unspecified Status: Acute Assessment and Plan: -she may have cardio-renal syndrome in the setting of severe pulmonary hypertension and acute on chronic diastolic heart failure. -consider renal service consultation. (3) Suspected COVID-19 virus infection: Code(s): Z20.822 - Contact with and (suspected) exposure to COVID-19 Status: Acute Assessment and Plan: -COVID-19 PCR negative. (4) HTN (hypertension): Qualifiers: Hypertension type: essential hypertension Qualified Code(s): I10 - Essential (primary) hypertension Code(s): I10 - Essential (primary) hypertension Status: Acute Assessment and Plan: -blood pressure mildly elevated. -monitor blood pressure with continued diuresis. -given her chronic lower extremity and new left upper extremity edema, switched amlodipine to hydralazine. (5) Coronary artery disease: Code(s): I25.10 - Atherosclerotic heart disease of [place] coronary artery without angina pectoris Status: Acute Assessment and Plan: -continue aspirin and statin as per outpatient regimen. -obtain lipid panel fasting with LDL 70. -per recent left heart catheterization, she has mild coronary artery disease. (6) Aortic valve stenosis: Code(s): I35.0 - Nonrheumatic aortic (valve) stenosis Status: Acute Assessment and Plan: -she has moderate-severe aortic valve stenosis based on recent echo and left heart catheterization findings. -she may need evaluation for TAVR in the coming months in setting of her progressive heart failure. (7) Acute on chronic anemia: Code(s): D64.9 - Anemia, unspecified Status: Acute Assessment and Plan: -her hemoglobin decreased from 8.8 to 7.1. Most recent hemoglobin 7.5, stable. -carefully monitor hemoglobin and transfuse to keep hemoglobin greater than or equal to 8. Subjective Date/time seen: 02/18/20 13:07 She feels better today, shortness breath is much better, leg swelling is improved but still with moderate edema Exam Narrative: Exam Narrative: General: cooperative, healthy appearing, comfortable, no acute distress, well developed, awake and Physically active Nutritional Appearance: average body habitus and well nourished Orientation/consciousness: oriented to person
--- NOTE | 2020-02-18 14:54 | PM.IMPN ---
Progress Note: A&P Assessment and Plan (1) Acute on chronic diastolic (congestive) heart failure: Code(s): I50.33 - Acute on chronic diastolic (congestive) heart failure Status: Acute Assessment and Plan: Dr. metcalf has been consulted and I am awaiting further recommendation for her CHF. With to monitor her renal function closely is it seems to be worsening with increase of her renal failure. Her Lasix has been started IV twice a day now. Continue with metoprolol and Benicar. 02/18/20 14:54 Patient is 69 with history of acute on chronic diastolic dysfunction patient also has history lower extremity limp or edema worse on the left lower extremity patient had been complaining shortness of breath and lower extremity edema seen by primary care and was initially was started on Lasix 40 mg q.day symptoms were not improving and it was advanced to b.i.d. and then to t.i.d. without much much improvement, patient presented emergency department with a complaint shortness of breath and lower extremity edema patient seen by snow remover patient being diuresed with IV Lasix 40 mg b.i.d., patient with acute on chronic kidney disease will continue to monitor patient kidney function patient is being diuresed. on 02/17/2020 patient covid test was negative however patient urine output was poor and patient was taking in too much fluid, restricted the patient fluid intake to 1200 cc per day, continued IV Lasix 40 mg b.i.d., today patient states does feel little better compared to when he arrived and swelling in left arm is also improved, patient seen by Cardiology recommended the continue present managed and monitor her kidney function closely, kidney ultrasound was essentially normal, will encourage the patient to participate in PT OT. (2) Lymphedema: Code(s): I89.0 - Lymphedema, not elsewhere classified Status: Acute Assessment and Plan: The patient stated she recently had Dopplers but she was not sure if his arterial venous so I did recheck her venous Dopplers. I doubt that it is a DVT. The patient has chronic lymphedema and has a machine at home that she uses. May consider SCDs if her venous Dopplers are negative. (3) Chronic anemia: Code(s): D64.9 - Anemia, unspecified Status: Chronic Assessment and Plan: Could be related to chronic renal failure. (4) Hyperlipidemia: Qualifiers: Hyperlipidemia type: unspecified Qualified Code(s): E78.5 - Hyperlipidemia, unspecified Code(s): E78.5 - Hyperlipidemia, unspecified Status: Acute Assessment and Plan: Continue with atorvastatin. (5) HTN (hypertension): Qualifiers: Hypertension type: essential hypertension Qualified Code(s): I10 - Essential (primary) hypertension Code(s): I10 - Essential (primary) hypertension Status: Acute Assessment and Plan: The patient is on metoprolol, Lasix, Benicar, and hydralazine. The patient is also on amlodipine which could be causing some of her edema as well. (6) Diabetes mellitus with stage 3 chronic kidney disease, with long-term current use of insulin: Qualifiers: Diabetes mellitus type: type 2 Qualified Code(s): E11.22 - Type 2 diabetes mellitus with diabetic chronic kidney disease; N18.3 - Chronic kidney disease, stage 3 (moderate); Z79.4 - detention (current) use of insulin Code(s): E11.22 - Type 2 diabetes mellitus with diabetic chronic kidney disease; N18.3 - Chronic kidney disease, stage 3 (moderate); Z79.4 - phone manager (current) use of insulin Status: Acute Assessment and Plan: Continue with Lantus. Check A1c. Sliding scale insulin. (7) Suspected COVID-19 virus infection: Code(s): Z20.822 - Contact with and (suspected) exposure to COVID-19 Status: Acute Assessment and Plan: The patient has been placed on droplet isolation. Continue to monitor. Subjective Date/time seen: 02/18/20 14:54 Patient i
[2020-02-18] MEDS: ASPIRIN 81 MG CHEWABLE TABLET PO (17:02)
[2020-02-18] MEDS: ATORVASTATIN 40 MG TABLET PO (17:02)
[2020-02-18 17:49] LABS: Glucose Point of Care 308 (65-105)
[2020-02-18 22:24] LABS: Glucose Point of Care 276 (65-105)
[2020-02-19] VITALS (11 sets, daily range): BP systolic 162–174; BP diastolic 49–51; PULSE 55–68; RESP 16–20; TEMP 36.5–36.9; O2SAT 92–95
[2020-02-19] MEDS: ALENDRONATE SODIUM 70 MG TABLET PO (06:03)
[2020-02-19 06:40] LABS: Hematocrit 24.7 % (37.0-47.0); Mean Corpuscular HGB Conc 32.4 g/dl (32-36); Mean Corpuscular Hemoglobin 31.1 pg (26-34); Mean Corpuscular Volume 96.1 fl (80-100); Mean Platelet Volume 11.2 fl (7.4-10.4); Platelet Count Result 247 k/mm3 (150-375); Red Blood Count 2.57 M/mm3 (4.2-5.4); Red Cell Distribution Width 13.9 % (11.5-14.5); White Blood Count 6.5 K/mm3 (4.5-10.0)
[2020-02-19 06:58] LABS: Anion Gap 6 mmol/L (8-16); Blood Urea Nitrogen 53 mg/dL (7-17); Calcium 8.6 mg/dL (8.4-10.2); Carbon Dioxide 30 mmol/L (22-30); Chloride 101 mmol/L (98-107); Estimated CRCL calculation 24 ml/min; Estimated Glomerular Filt Rate 23; Glucose 222 mg/dL (65-105); Magnesium 1.8 mg/dL (1.6-2.3); Potassium 3.9 mmol/L (3.4-5.0); Sodium 137 mmol/L (137-145)
[2020-02-19] MEDS: HEPARIN SODIUM 5,000 UNITS/ML VIAL 5000 UNITS SUB-Q ×2 (08:34→19:58)
[2020-02-19] MEDS: FUROSEMIDE INJ 40 MG/4 ML VIAL IV PUSH ×3 (08:34→19:58)
[2020-02-19] MEDS: FLUTICASONE PROPIONATE 0.05% NA SPR 16 GM BTL (*BKC) 2 SPRAY NASAL (08:34)
[2020-02-19] MEDS: METOPROLOL TARTRATE 50 MG TAB 100 MG PO ×2 (08:35→19:59)
[2020-02-19] MEDS: hydrALAZINE HCL 25 MG TABLET PO (08:35)
[2020-02-19] MEDS: OPTI-GEN TAB 1 TABLET PO (08:36)
[2020-02-19] MEDS: OLMESARTAN MEDOXOMIL 20 MG TABLET PO (08:36)
[2020-02-19] MEDS: MULTIVITAMINS THERAPEUTIC TAB (*BKC) 1 TABLET PO (08:36)
[2020-02-19 08:39] LABS: Glucose Point of Care 231 (65-105)
[2020-02-19] MEDS: INSULIN GLARGINE (*BKC) 100 UNITS/ML SUB-Q ×2 (08:43→19:58)
[2020-02-19] MEDS: INSULIN ASPART (*BKC) 100 UNITS/ML SUB-Q ×2 (08:43→18:06)
[2020-02-19 12:40] LABS: Glucose Point of Care 194 (65-105)
--- NOTE | 2020-02-19 13:23 | PM.PNCARD ---
Progress Note: A&P Assessment and Plan (1) Acute on chronic diastolic (congestive) heart failure: Code(s): I50.33 - Acute on chronic diastolic (congestive) heart failure Status: Acute Assessment and Plan: 69-y/o female with h/o HFpEF, lymphedema of the left leg, pulmonary hypertension, MIRELA , moderate aortic stenosis,HTN, DM, CKD who is seen in cardiac consultation for acute on chronic heart failure with preserved ejection fraction Has asymmetrical edema L>R. Continue IV Lasix 40 BID. Will give extra dose this evening. Creatinine stable ~ 2.1 (baseline in April was ~ 1.3). Her home dose is 80 mg in am and 40 in pm. Will probably switch to Bumex on discharge once ready to switch to oral loop diuretics. Will get US of left upper ext to rule out DVT given asymmetrical edema Lower ext edema is negative for DVT (2) Acute kidney injury superimposed on chronic kidney disease: Code(s): N17.9 - Acute kidney failure, unspecified; N18.9 - Chronic kidney disease, unspecified Status: Acute Assessment and Plan: -Follow creatinine closely while on IV lasix (3) HTN (hypertension): Qualifiers: Hypertension type: essential hypertension Qualified Code(s): I10 - Essential (primary) hypertension Code(s): I10 - Essential (primary) hypertension Status: Acute Assessment and Plan: -Continue Metoprolol, Olmesartan. Will increase Hydralazine to 50 BID. Amlodipine was d.jessica this admission for edema. (4) Coronary artery disease: Code(s): I25.10 - Atherosclerotic heart disease of [place] coronary artery without angina pectoris Status: Acute Assessment and Plan: -continue aspirin and statin as per outpatient regimen. -obtain lipid panel fasting with LDL 70. -per recent left heart catheterization, she has mild coronary artery disease. (5) Aortic valve stenosis: Code(s): I35.0 - Nonrheumatic aortic (valve) stenosis Status: Acute Assessment and Plan: -she has moderate-severe aortic valve stenosis based on recent echo and left heart catheterization findings. -she may need evaluation for TAVR in the coming months in setting of her progressive heart failure. (6) Acute on chronic anemia: Code(s): D64.9 - Anemia, unspecified Status: Acute Assessment and Plan: -her hemoglobin decreased from 8.8 to 7.1. Most recent hemoglobin 7.5, stable. -carefully monitor hemoglobin and transfuse to keep hemoglobin greater than or equal to 8. Subjective Date/time seen: 02/19/20 13:23 Leg edema and left upper ext edema are improving with lasix. Denies chest pain Review of Systems Review of Systems: All systems reviewed & are unremarkable except as noted in HPI and below Exam Narrative: Exam Narrative: General: cooperative, comfortable, no acute distress, orientedx3 HENMT: Head: normal to inspection Eyes: General: appearance normal, both eyes and all related structures Neck: no lymphadenopathy, Resp: normal respiratory effort, no audible wheezing or stridor. Cardio: No heave. Rate: regular rate Rhythm: regular rhythm, normal S1S2, systolic murmur Neuro: No focal deficits. Extremity: Edema present bilaterally in lower extremities 2+ on right and 3 on left with pitting edema. Left upper ext edema Objective Data Vital Signs Vital Signs: Vital Signs - 24 hr 02/18/20 14:00 02/18/20 16:00 02/18/20 20:00 Temperature 36.7 C Pulse Rate 59 L 62 63 Respiratory Rate 18 Blood Pressure 158/55 H Pulse Oximetry 96 02/18/20 21:53 02/18/20 22:00 02/19/20 00:00 Temperature 36.4 C L Pulse Rate 62 60 55 L Respiratory Rate 20 Blood Pressure 173/58 H Pulse Oximetry 98 02/19/20 04:00 02/19/20 06:00 02/19/20 08:00 Temperature 36.5 C Pulse Rate 63 61 62 Respiratory Rate 20 Blood Pressure 174/51 H Pulse Oximetry 95 02/19/20 08:35 Temperature Pulse Rate 64 Respiratory Rate Blood Pressure
--- NOTE | 2020-02-19 14:04 | OTOPEVAL ---
Thank you for referring Mine Dwyer to [facility].? The patient is scheduled to be seen for therapy? ____x/week for ___ weeks. Please review, sign, date and return this plan of care ALLY. I agree with and certify that the following plan of care is medically necessary. Referring Physician Date Admitting Provider: Gallo Rosa MD Attending Provider: Gallo Rosa MD Referring Provider:
--- NOTE | 2020-02-19 14:05 | PCRCNOTE ---
SPOKE WITH PT. ABOUT WEARING A HOME CPAP; STATES SHE JUST GOT ONE AT HOME AND HAS ONLY WORN 1 NIGHT AND IS HAVING TROUBLE WITH THE MASK. OFFERED ONE OF OUR MACHINES FOR THE VISIT BUT PT. STATES SHE DOES NOT WANT TO WEAR ONE WHILE HERE.
--- NOTE | 2020-02-19 15:22 | PM.IMPN ---
Progress Note: A&P Assessment and Plan (1) Acute on chronic diastolic (congestive) heart failure: Code(s): I50.33 - Acute on chronic diastolic (congestive) heart failure Status: Acute Assessment and Plan: Dr. metcalf has been consulted and I am awaiting further recommendation for her CHF. With to monitor her renal function closely is it seems to be worsening with increase of her renal failure. Her Lasix has been started IV twice a day now. Continue with metoprolol and Benicar. 02/19/20 15:22 Patient is 69 with history of acute on chronic diastolic dysfunction patient also has history lower extremity limp or edema worse on the left lower extremity patient had been complaining shortness of breath and lower extremity edema seen by primary care and was initially was started on Lasix 40 mg q.day symptoms were not improving and it was advanced to b.i.d. and then to t.i.d. without much much improvement, patient presented emergency department with a complaint shortness of breath and lower extremity edema patient seen by metallography teacher patient being diuresed with IV Lasix 40 mg b.i.d., patient with acute on chronic kidney disease will continue to monitor patient kidney function patient is being diuresed. on 02/17/2020 patient covid test was negative however patient urine output was poor and patient was taking in too much fluid, restricted the patient fluid intake to 1200 cc per day, continued IV Lasix 40 mg b.i.d. today 02/19/20 patient states does feel little better compared to when he arrived and c/o swelling in left arm patient seen by Cardiology and d/w concerning left arm swelling, did venous dopplor and it is negative for DVT, metallography teacher gave extra dose of IV laxis today, the continue present managed and monitor her kidney function closely, kidney ultrasound was essentially normal, will order PT/OT and encourage the patient to participate in PT OT. (2) Lymphedema: Code(s): I89.0 - Lymphedema, not elsewhere classified Status: Acute Assessment and Plan: The patient stated she recently had Dopplers but she was not sure if his arterial venous so I did recheck her venous Dopplers. I doubt that it is a DVT. The patient has chronic lymphedema and has a machine at home that she uses. May consider SCDs if her venous Dopplers are negative. (3) Chronic anemia: Code(s): D64.9 - Anemia, unspecified Status: Chronic Assessment and Plan: Could be related to chronic renal failure. (4) Hyperlipidemia: Qualifiers: Hyperlipidemia type: unspecified Qualified Code(s): E78.5 - Hyperlipidemia, unspecified Code(s): E78.5 - Hyperlipidemia, unspecified Status: Acute Assessment and Plan: Continue with atorvastatin. (5) HTN (hypertension): Qualifiers: Hypertension type: essential hypertension Qualified Code(s): I10 - Essential (primary) hypertension Code(s): I10 - Essential (primary) hypertension Status: Acute Assessment and Plan: The patient is on metoprolol, Lasix, Benicar, and hydralazine. The patient is also on amlodipine which could be causing some of her edema as well. (6) Diabetes mellitus with stage 3 chronic kidney disease, with long-term current use of insulin: Qualifiers: Diabetes mellitus type: type 2 Qualified Code(s): E11.22 - Type 2 diabetes mellitus with diabetic chronic kidney disease; N18.3 - Chronic kidney disease, stage 3 (moderate); Z79.4 - ship's cook (current) use of insulin Code(s): E11.22 - Type 2 diabetes mellitus with diabetic chronic kidney disease; N18.3 - Chronic kidney disease, stage 3 (moderate); Z79.4 - custodial (current) use of insulin Status: Acute Assessment and Plan: Continue with Lantus. Check A1c. Sliding scale insulin. (7) Suspected COVID-19 virus infection: Code(s): Z20.822 - Contact with and (suspected) exposure to COVID-19 Status: Acute Assessment and Rosalie
[2020-02-19] MEDS: ASPIRIN 81 MG CHEWABLE TABLET PO (17:18)
[2020-02-19] MEDS: hydrALAZINE HCL 25 MG TABLET 50 MG PO (17:18)
[2020-02-19] MEDS: ATORVASTATIN 40 MG TABLET PO (17:19)
[2020-02-19 17:44] LABS: Glucose Point of Care 357 (65-105)
[2020-02-19] MEDS: ACETAMINOPHEN 325 MG TABLET 650 MG PO (18:08)
[2020-02-19 20:42] LABS: Glucose Point of Care 286 (65-105)
[2020-02-20] VITALS: PULSE 62
[2020-02-20 04:00] VITALS: PULSE 57
[2020-02-20 06:00] VITALS: BP 176/52; PULSE 67; RESP 20; TEMP 36.8; O2SAT 94
[2020-02-20 07:01] LABS: Anion Gap 6 mmol/L (8-16); Blood Urea Nitrogen 55 mg/dL (7-17); Calcium 8.3 mg/dL (8.4-10.2); Carbon Dioxide 28 mmol/L (22-30); Chloride 101 mmol/L (98-107); Estimated CRCL calculation 25 ml/min; Estimated Glomerular Filt Rate 25; Glucose 310 mg/dL (65-105); Magnesium 1.7 mg/dL (1.6-2.3); Potassium 3.9 mmol/L (3.4-5.0); Sodium 135 mmol/L (137-145)
[2020-02-20 07:12] LABS: Hematocrit 22.8 % (37.0-47.0); Hemoglobin 7.4 g/dL (12.0-15.0); Mean Corpuscular HGB Conc 32.5 g/dl (32-36); Mean Corpuscular Hemoglobin 32.2 pg (26-34); Mean Corpuscular Volume 99.1 fl (80-100); Mean Platelet Volume 10.9 fl (7.4-10.4); Platelet Count Result 207 k/mm3 (150-375); Red Cell Distribution Width 14.2 % (11.5-14.5); White Blood Count 6.9 K/mm3 (4.5-10.0)
[2020-02-20 07:58] LABS: Glucose Point of Care 324 (65-105)
[2020-02-20 08:00] VITALS: PULSE 69
--- NOTE | 2020-02-20 08:32 | PM.PNCARD ---
Progress Note: A&P Assessment and Plan (1) Acute on chronic diastolic (congestive) heart failure: Code(s): I50.33 - Acute on chronic diastolic (congestive) heart failure Status: Acute Assessment and Plan: 69-y/o female with h/o HFpEF, lymphedema of the left leg, pulmonary hypertension, MIRELA , moderate aortic stenosis,HTN, DM, CKD who is seen in cardiac consultation for acute on chronic heart failure with preserved ejection fraction Has asymmetrical edema L>R. She diuresed well with IV lasix and her creatinine is stable. She is okay for discharge from cardiac standpoint. Will discharge on PO Bumex 1 mg BID as it has better bioavailability compared to PO lasix (she has not been responding well to oral lasix). Creatinine stable down to 2.0 (baseline in April was ~ 1.3). Will need follow up BMP in a week US of left upper ext to rule out DVT given asymmetrical edema was negative. Further work up per primary team (2) Acute kidney injury superimposed on chronic kidney disease: Code(s): N17.9 - Acute kidney failure, unspecified; N18.9 - Chronic kidney disease, unspecified Status: Acute Assessment and Plan: Stable. Repeat BMP in a week (3) HTN (hypertension): Qualifiers: Hypertension type: essential hypertension Qualified Code(s): I10 - Essential (primary) hypertension Code(s): I10 - Essential (primary) hypertension Status: Acute Assessment and Plan: -Continue Metoprolol, Olmesartan. Will resume Amlodipine for better BP control. Doubt Amlodipine is causing her asymmetrical edema. (4) Coronary artery disease: Code(s): I25.10 - Atherosclerotic heart disease of [place] coronary artery without angina pectoris Status: Acute Assessment and Plan: -continue aspirin and statin as per outpatient regimen. -obtain lipid panel fasting with LDL 70. -per recent left heart catheterization, she has mild coronary artery disease. (5) Aortic valve stenosis: Code(s): I35.0 - Nonrheumatic aortic (valve) stenosis Status: Acute Assessment and Plan: -she has moderate-severe aortic valve stenosis based on recent echo and left heart catheterization findings. -she may need evaluation for TAVR in the coming months in setting of her progressive heart failure. (6) Acute on chronic anemia: Code(s): D64.9 - Anemia, unspecified Status: Acute Assessment and Plan: -her hemoglobin decreased from 8.8 to 7.1. Most recent hemoglobin 7.5, stable. -carefully monitor hemoglobin and transfuse to keep hemoglobin greater than or equal to 8. Subjective Date/time seen: 02/20/20 08:32 No overnight events. Lower ext edema continues to improve as well as left arm edema. Review of Systems Review of Systems: All systems reviewed & are unremarkable except as noted in HPI and below Exam Narrative: Exam Narrative: General: cooperative, comfortable, no acute distress, orientedx3 HENMT: Head: normal to inspection Eyes: General: appearance normal, both eyes and all related structures Neck: no lymphadenopathy, Resp: normal respiratory effort, no audible wheezing or stridor. Cardio: No heave. Rate: regular rate Rhythm: regular rhythm, normal S1S2, systolic murmur Neuro: No focal deficits. Extremity: Edema present bilaterally in lower extremities 2+ on right and 3 on left with pitting edema. Left upper ext edema Objective Data Vital Signs Vital Signs: Vital Signs - 24 hr 02/19/20 08:35 02/19/20 12:00 02/19/20 14:00 Temperature 36.6 C Pulse Rate 64 60 66 Respiratory Rate 16 Blood Pressure 171/51 H Pulse Oximetry 95 02/19/20 16:00 02/19/20 17:41 02/19/20 20:00 Temperature Pulse Rate 67 68 Respiratory Rate Blood Pressure Pulse Oximetry 92 02/19/20 22:00 02/20/20 00:00 02/20/20 04:00 Temperature 36.9 C Pulse Rate 57 L 62 57 L Respiratory Rate 20 Blood Pressure 162/49 H Pulse Oximetr
[2020-02-20] MEDS: INSULIN ASPART (*BKC) 100 UNITS/ML SUB-Q ×2 (09:10→11:31)
[2020-02-20] MEDS: INSULIN GLARGINE (*BKC) 100 UNITS/ML SUB-Q (09:12)
[2020-02-20 09:20] VITALS: PULSE 66
[2020-02-20] MEDS: METOPROLOL TARTRATE 50 MG TAB 100 MG PO (09:20)
[2020-02-20] MEDS: amLODIPine BESYLATE 5 MG TABLET 10 MG PO (09:20)
[2020-02-20] MEDS: hydrALAZINE HCL 25 MG TABLET 50 MG PO (09:20)
[2020-02-20] MEDS: FUROSEMIDE INJ 40 MG/4 ML VIAL IV PUSH (09:21)
[2020-02-20] MEDS: FLUTICASONE PROPIONATE 0.05% NA SPR 16 GM BTL (*BKC) 2 SPRAY NASAL (09:21)
[2020-02-20] MEDS: OLMESARTAN MEDOXOMIL 20 MG TABLET PO (09:22)
[2020-02-20] MEDS: OPTI-GEN TAB 1 TABLET PO (09:22)
[2020-02-20] MEDS: MULTIVITAMINS THERAPEUTIC TAB (*BKC) 1 TABLET PO (09:22)
[2020-02-20] MEDS: HEPARIN SODIUM 5,000 UNITS/ML VIAL 5000 UNITS SUB-Q (09:22)
--- NOTE | 2020-02-20 10:27 | PM.IMPN ---
Progress Note: A&P Assessment and Plan (1) Acute on chronic diastolic (congestive) heart failure: Code(s): I50.33 - Acute on chronic diastolic (congestive) heart failure Status: Acute Assessment and Plan: Dr. metcalf has been consulted and I am awaiting further recommendation for her CHF. With to monitor her renal function closely is it seems to be worsening with increase of her renal failure. Her Lasix has been started IV twice a day now. Continue with metoprolol and Benicar. 02/19/20 15:22 Patient is 69 with history of acute on chronic diastolic dysfunction patient also has history lower extremity limp or edema worse on the left lower extremity patient had been complaining shortness of breath and lower extremity edema seen by primary care and was initially was started on Lasix 40 mg q.day symptoms were not improving and it was advanced to b.i.d. and then to t.i.d. without much much improvement, patient presented emergency department with a complaint shortness of breath and lower extremity edema patient seen by bicycle assembler patient being diuresed with IV Lasix 40 mg b.i.d., patient with acute on chronic kidney disease will continue to monitor patient kidney function patient is being diuresed. on 02/17/2020 patient covid test was negative however patient urine output was poor and patient was taking in too much fluid, restricted the patient fluid intake to 1200 cc per day, continued IV Lasix 40 mg b.i.d. today 02/19/20 patient states does feel little better compared to when he arrived and c/o swelling in left arm patient seen by Cardiology and d/w concerning left arm swelling, did venous dopplor and it is negative for DVT, bicycle assembler gave extra dose of IV laxis today, the continue present managed and monitor her kidney function closely, kidney ultrasound was essentially normal, will order PT/OT and encourage the patient to participate in PT OT. (2) Lymphedema: Code(s): I89.0 - Lymphedema, not elsewhere classified Status: Acute Assessment and Plan: The patient stated she recently had Dopplers but she was not sure if his arterial venous so I did recheck her venous Dopplers. I doubt that it is a DVT. The patient has chronic lymphedema and has a machine at home that she uses. May consider SCDs if her venous Dopplers are negative. (3) Chronic anemia: Code(s): D64.9 - Anemia, unspecified Status: Chronic Assessment and Plan: Could be related to chronic renal failure. (4) Hyperlipidemia: Qualifiers: Hyperlipidemia type: unspecified Qualified Code(s): E78.5 - Hyperlipidemia, unspecified Code(s): E78.5 - Hyperlipidemia, unspecified Status: Acute Assessment and Plan: Continue with atorvastatin. (5) HTN (hypertension): Qualifiers: Hypertension type: essential hypertension Qualified Code(s): I10 - Essential (primary) hypertension Code(s): I10 - Essential (primary) hypertension Status: Acute Assessment and Plan: The patient is on metoprolol, Lasix, Benicar, and hydralazine. The patient is also on amlodipine which could be causing some of her edema as well. (6) Diabetes mellitus with stage 3 chronic kidney disease, with long-term current use of insulin: Qualifiers: Diabetes mellitus type: type 2 Qualified Code(s): E11.22 - Type 2 diabetes mellitus with diabetic chronic kidney disease; N18.3 - Chronic kidney disease, stage 3 (moderate); Z79.4 - terminal manager (current) use of insulin Code(s): E11.22 - Type 2 diabetes mellitus with diabetic chronic kidney disease; N18.3 - Chronic kidney disease, stage 3 (moderate); Z79.4 - [facility] (current) use of insulin Status: Acute Assessment and Plan: Continue with Lantus. Check A1c. Sliding scale insulin. (7) Suspected COVID-19 virus infection: Code(s): Z20.822 - Contact with and (suspected) exposure to COVID-19 Status: Acute Assessment and Rosalie
[2020-02-20 11:40] LABS: Glucose Point of Care 357 (65-105)
[2020-02-20 12:00] VITALS: PULSE 60
--- NOTE | 2020-02-20 14:03 | PM.DS ---
DS: Admitting Diagnosis Admitting Diagnosis Admitting Diagnosis: Chief Complaint: Increased edema to lower extremity DS: Discharge Diagnosis Discharge Diagnosis (1) Acute on chronic diastolic (congestive) heart failure: Code(s): I50.33 - Acute on chronic diastolic (congestive) heart failure Status: Acute Assessment and Plan: Dr. metcalf has been consulted and I am awaiting further recommendation for her CHF. With to monitor her renal function closely is it seems to be worsening with increase of her renal failure. Her Lasix has been started IV twice a day now. Continue with metoprolol and Benicar. 02/19/20 15:22 Patient is 69 with history of acute on chronic diastolic dysfunction patient also has history lower extremity limp or edema worse on the left lower extremity patient had been complaining shortness of breath and lower extremity edema seen by primary care and was initially was started on Lasix 40 mg q.day symptoms were not improving and it was advanced to b.i.d. and then to t.i.d. without much much improvement, patient presented emergency department with a complaint shortness of breath and lower extremity edema patient seen by jamb cutter patient being diuresed with IV Lasix 40 mg b.i.d., patient with acute on chronic kidney disease will continue to monitor patient kidney function patient is being diuresed. on 02/17/2020 patient covid test was negative however patient urine output was poor and patient was taking in too much fluid, restricted the patient fluid intake to 1200 cc per day, continued IV Lasix 40 mg b.i.d. today 02/19/20 patient states does feel little better compared to when he arrived and c/o swelling in left arm patient seen by Cardiology and d/w concerning left arm swelling, did venous dopplor and it is negative for DVT, jamb cutter gave extra dose of IV laxis today, the continue present managed and monitor her kidney function closely, kidney ultrasound was essentially normal, will order PT/OT and encourage the patient to participate in PT OT. (2) Lymphedema: Code(s): I89.0 - Lymphedema, not elsewhere classified Status: Chronic Assessment and Plan: The patient stated she recently had Dopplers but she was not sure if his arterial venous so I did recheck her venous Dopplers. I doubt that it is a DVT. The patient has chronic lymphedema and has a machine at home that she uses. May consider SCDs if her venous Dopplers are negative. (3) Chronic anemia: Code(s): D64.9 - Anemia, unspecified Status: Chronic Assessment and Plan: Could be related to chronic renal failure. (4) Hyperlipidemia: Qualifiers: Hyperlipidemia type: unspecified Qualified Code(s): E78.5 - Hyperlipidemia, unspecified Code(s): E78.5 - Hyperlipidemia, unspecified Status: Acute Assessment and Plan: Continue with atorvastatin. (5) HTN (hypertension): Qualifiers: Hypertension type: essential hypertension Qualified Code(s): I10 - Essential (primary) hypertension Code(s): I10 - Essential (primary) hypertension Status: Chronic Assessment and Plan: The patient is on metoprolol, Lasix, Benicar, and hydralazine. The patient is also on amlodipine which could be causing some of her edema as well. (6) Diabetes mellitus with stage 3 chronic kidney disease, with long-term current use of insulin: Qualifiers: Diabetes mellitus type: type 2 Qualified Code(s): E11.22 - Type 2 diabetes mellitus with diabetic chronic kidney disease; N18.3 - Chronic kidney disease, stage 3 (moderate); Z79.4 - ferry terminal supervisor (current) use of insulin Code(s): E11.22 - Type 2 diabetes mellitus with diabetic chronic kidney disease; N18.3 - Chronic kidney disease, stage 3 (moderate); Z79.4 - ferry terminal supervisor (current) use of insulin Status: Acute Assessment and Plan: Continue with Lantus. Check A1c. Sliding scale insulin. (7) Suspected COVID-19 virus infe
== END 2020-02-20 15:50 | disposition home or self-care (01) | DRG 291 ==
LOC: ANHED 16:38 → ANH3MEDSUR 16:55
PROVIDERS: Emergency Medicine; Internal Medicine Cardiovascular Disease; Nurse Practitioner; Admitting Provider Internal Medicine; Emergency Provider Emergency Medicine; PCP Family Medicine; Visit Provider Family Medicine
DX: I13.0 Hypertensive heart and chronic kidney disease with heart failure and stage 1 through stage 4 chronic kidney disease, or unspecified chronic kidney disease (principal); I50.33 Acute on chronic diastolic (congestive) heart failure; N17.9 Acute kidney failure, unspecified; Z20.822 Contact with and (suspected) exposure to COVID-19; E11.22 Type 2 diabetes mellitus with diabetic chronic kidney disease; N18.30 Chronic kidney disease, stage 3 unspecified; M85.80 Other specified disorders of bone density and structure, unspecified site; E11.319 Type 2 diabetes mellitus with unspecified diabetic retinopathy without macular edema; I35.0 Nonrheumatic aortic (valve) stenosis; I34.1 Nonrheumatic mitral (valve) prolapse; E78.5 Hyperlipidemia, unspecified; G47.33 Obstructive sleep apnea (adult) (pediatric); I25.10 Atherosclerotic heart disease of native coronary artery without angina pectoris; I89.0 Lymphedema, not elsewhere classified; D63.1 Anemia in chronic kidney disease; E66.9 Obesity, unspecified; Z68.35 Body mass index [BMI] 35.0-35.9, adult; Z79.4 Long term (current) use of insulin; Z98.42 Cataract extraction status, left eye; Z98.41 Cataract extraction status, right eye
CPT/HCPCS: 36415; 71046; 76775; 78580; 80048; 80053; 80061; 82728; 83036; 83735; 83880; 84443; 84484; 85025; 85027; 85055; 85380; 85610; 85730; 93005; 93970; 93971; 96374; 96376; 97161; 97165; 99285; A9270; A9540; C9803; G0378; J1644; J1815; J1940; U0003

== ENCOUNTER 2020-02-25 10:43 | Outpatient (CLI) | payer OTHER, SELFPAY ==
[2020-02-25 12:15] LABS: Anion Gap 8 mmol/L (8-16); Blood Urea Nitrogen 66 mg/dL (7-17); Carbon Dioxide 28 mmol/L (22-30); Chloride 102 mmol/L (98-107); Estimated Glomerular Filt Rate 20; Glucose 200 mg/dL (65-105); Sodium 138 mmol/L (137-145)
== END 2020-02-25 10:44 | disposition home or self-care (01) ==
PROVIDERS: PCP Family Medicine; Visit Provider Family Medicine
DX: N17.9 Acute kidney failure, unspecified (principal); N18.9 Chronic kidney disease, unspecified
CPT/HCPCS: 36415; 80048

== ENCOUNTER 2020-03-10 16:33 | Inpatient (IN) | payer OTHER, SELFPAY ==
[2020-03-10] VITALS (8 sets, daily range): BP systolic 139–180; BP diastolic 59–78; PULSE 59–65; RESP 12–18; TEMP 36.6–36.7; O2SAT 95–98; BMI 35.5
--- NOTE | ~2020-03-10 | XR_ITS ---
XR chest 2V DATE: 03/10/2020 17:31 INDICATION: Fluid overload. Hypertension. Congestive heart failure. TECHNIQUE: PA and lateral views COMPARISON: 02/17/2019 1:00 PM lateral chest FINDINGS: There is cardiomegaly. There is pulmonary vascular congestion and redistribution. There are small pleural effusions. Minimal bibasilar infiltrate or atelectasis. Lung arriola otherwise appear clear. Diffuse osteopenia. IMPRESSION: Cardiomegaly, mild congestive changes Reviewed, dictated and finalized at location A. SDET
--- NOTE | ~2020-03-10 | US_ITS ---
EXAMINATION: US venous doppler UE DATE: 03/11/2020 12:57 INDICATION: Left upper limb edema. TECHNIQUE: Grayscale ultrasound images without and with compression and Doppler ultrasound images of the bilateral upper extremity veins were obtained. COMPARISON: Ultrasound 02/19/2020 FINDINGS: The visualized portions of the right internal jugular vein, subclavian vein, axillary vein, brachial veins, basilic vein, cephalic vein, radial vein, and ulnar vein are patent. The visualized portions of the left internal jugular vein, subclavian vein, axillary vein, brachial v eins, basilic vein, cephalic vein, radial vein, and ulnar vein are patent. There is subcutaneous demario a in the left upper limb. IMPRESSION: 1. No deep venous thrombosis. Reviewed, dictated and finalized at location A. [employer] F[employer]ILIZER PROCESSING
--- NOTE | 2020-03-10 16:42 | ECG_ITS ---
Measurements Intervals [place] Rate: 66 P: 25 NV: 174 QRS: 16 QRSD: 153 T: 14 QT: 428 QTc: 449 Interpretive Statements SINUS RHYTHM RIGHT BUNDLE BRANCH BLOCK BASELINE ARTIFACT- I, II, AVR, AVF, V2 ABNORMAL ECG Electronically Signed On 03-10-2020 16:59:44 COLORIST FORMULATOR by Levon Azevedo D.O.
--- NOTE | 2020-03-10 16:56 | ED.GENADULT ---
HPI - General Adult General Chief complaint: Unspecified Stated complaint: SENT BY WOOL GROWER, FLUID OVERLOAD Time Seen by Provider: 03/10/20 16:43 Source: RN notes reviewed History of Present Illness HPI narrative: Patient presents to emergency department from home for CHF. Patient states he is followed by Dr Ritter for cardiology. She states she was admitted earlier this month for CHF and was put on Bumex 1 mg twice a day which she has been taking. She states she has blood work drawn at her house at home health and her lab work today showed that she was doing worsening renal insufficiency and heart failure was asked to come to the ED for admission for likely IV Lasix patient states she has been swelling in her lower extremities she denies any chest pain or shortness of breath denies any fevers Related Data Home Medications Medication Instructions Recorded Confirmed amlodipine 10 mg PO QAM 12/29/18 02/15/20 aspirin 81 mg PO QPM 12/29/18 02/15/20 atorvastatin 40 mg PO QPM 12/29/18 02/15/20 metoprolol tartrate 100 mg PO BID 12/29/18 02/15/20 multivitamin 1 cap PO QAM 12/29/18 02/15/20 alendronate 70 mg PO WEEKLY 03/25/19 02/15/20 Ocuvite with Lutein 1 tablet PO DAILY 04/18/19 02/15/20 calcium carbonate-vitamin D3 1 tablet PO DAILY 04/18/19 02/15/20 fluticasone propionate 2 spray INTRANASAL DAILY 04/18/19 02/15/20 insulin aspart U-100 [Novolog 1 sliding scale dose SUBCUT 04/18/19 02/15/20 U-100 Insulin aspart] USEASDIRECTD Lantus U-100 Insulin 4 units SUBCUT QAM 04/23/19 02/15/20 Lantus U-100 Insulin 3 units SUBCUT 11/23/19 02/15/20 hydralazine 50 mg PO BID PRN 11/23/19 02/15/20 olmesartan 20 mg PO DAILY 01/11/20 02/15/20 Allergies Allergy/AdvReac Type Severity Reaction Status Date / Time tramadol AdvReac Severe NAUSEA Verified 03/10/20 16:49 codeine AdvReac Intermediate MAKES HER Verified 03/10/20 16:49 FEEL BAD hydrocodone [From [place]] AdvReac Vomiting Verified 03/10/20 16:49 Review of Systems Review of Systems: Narrative: Gen.: Denies fevers or chills ENT: Denies congestion Respiratory: Denies shortness of breath or cough CV: Denies chest pain or palpitations GI: Denies abdominal pain nausea, emesis or diarrhea Musculoskeletal: Denies back pain or muscle pain reports lower extremity edema Neuro: Denies numbness, tingling, weakness or focal weakness Skin: Denies rash Except as documented, all other systems reviewed and negative [facility] Past Medical History Medical History Acute on chronic diastolic (congestive) heart failure Chronic anemia Chronic kidney disease, stage 3 Colon polyps Colonoscopy in August 2017 showing internal hemorrhoids. Diabetes mellitus with stage 3 chronic kidney disease, with long-term current use of insulin Hand fracture History of angiography Right leg Hyperlipidemia Hypertension Lymphedema Left lower extremity Mitral valve prolapse Moderate aortic stenosis By echo in 2017. Osteopenia Post-menopausal Retinopathy Type 2 diabetes mellitus with insulin therapy Surgical History Surgical History H/O cardiac catheterization History of bilateral tubal ligation S/P cataract surgery bilateral 10/2019 Status post laser cataract surgery of both eyes Family History Family History Mother Hypertension DVT (deep venous thrombosis) Vertigo Father Hypertension Cerebrovascular accident Sibling Graves disease Vertigo Sibling Family history of thyroid disease Family history of obesity Mother Family history of cataracts Other Family history of arthritis Family history of hearing loss Social History Social History Social History: The patient lives in her own home in [place]. She has a parakeet that she recently rescued. She has been for a
[2020-03-10 17:14] LABS: Basophils Absolute Auto 0.1 K/mm3 (0.0-0.1); Basophils Percent Auto 0.8 % (0.2-1.2); Eosinophils Absolute Auto 0.2 K/mm3 (0-0.3); Eosinophils Percent Auto 3.2 % (0-4.4); Hematocrit 27.7 % (37.0-47.0); Hemoglobin 8.9 g/dL (12.0-15.0); Immature Granulocyte Absolute 0.03 K/mm3 (0.00-0.031); Immature Granulocyte Percent A 0.4 % (0-0.5); Mean Corpuscular HGB Conc 32.1 g/dl (32-36); Mean Corpuscular Hemoglobin 31.8 pg (26-34); Mean Corpuscular Volume 98.9 fl (80-100); Mean Platelet Volume 11.3 fl (7.4-10.4); Monocytes Absolute Auto 0.7 K/mm3 (0.1-0.6); Monocytes Percent Auto 10.3 % (2.6-8.5); Neutrophils Absolute Auto 4.9 K/mm3 (1.3-6.7); Neutrophils Percent Auto 67.3 % (45.5-73.1); Platelet Count Result 239 k/mm3 (150-375); White Blood Count 7.2 K/mm3 (4.5-10.0)
[2020-03-10 17:21] LABS: Anion Gap 9 mmol/L (8-16); Blood Urea Nitrogen 46 mg/dL (7-17); Calcium 8.2 mg/dL (8.4-10.2); Carbon Dioxide 28 mmol/L (22-30); Chloride 101 mmol/L (98-107); Estimated CRCL calculation 20 ml/min; Estimated Glomerular Filt Rate 19; Glucose 161 mg/dL (65-105); Potassium 3.6 mmol/L (3.4-5.0); Sodium 138 mmol/L (137-145)
[2020-03-10 17:30] LABS: INR 0.9; Prothrombin Time 13.2 Seconds (11.1-14.7)
[2020-03-10 17:31] LABS: Partial Thromboplastin Time 28.8 SECONDS (22.3-36.8)
[2020-03-10 17:33] LABS: NT Pro B Type Natriuretic Pept 25300 PG/ML (5-100); Troponin I 0.019 ng/mL (0.000-0.034)
[2020-03-10] MEDS: FUROSEMIDE INJ 40 MG/4 ML VIAL IV PUSH (18:21)
--- NOTE | 2020-03-10 19:30 | ADMGEN ---
This patient, Mine Dwyer, was admitted to Medical Room 341-01. Patient/family oriented to hospital policies and general routines including ID bracelet, bed and alarms, visiting hours, pain management, procedures, bathroom and other care routines, personal items, smoking policy, room service/diet, and visiting hours. Information on how to activate the Rapid Response Team has been discussed. Patient/Family are encouraged to report perceived risks to care and to ask questions if they do not understand what they are told or what they should do.
[2020-03-10 21:37] LABS: Glucose Point of Care 120 (65-105)
[2020-03-10 22:19] LABS: Troponin I 0.021 ng/mL (0.000-0.034)
[2020-03-11] VITALS (10 sets, daily range): BP systolic 120–164; BP diastolic 46–53; PULSE 58–75; RESP 16–18; TEMP 36.4–36.8; O2SAT 95–100
[2020-03-11 01:01] LABS: Troponin I 0.026 ng/mL (0.000-0.034)
[2020-03-11 05:37] LABS: Basophils Absolute Auto 0.1 K/mm3 (0.0-0.1); Eosinophils Absolute Auto 0.3 K/mm3 (0-0.3); Eosinophils Percent Auto 4.7 % (0-4.4); Hematocrit 24.3 % (37.0-47.0); Hemoglobin 7.6 g/dL (12.0-15.0); Immature Granulocyte Absolute 0.03 K/mm3 (0.00-0.031); Immature Granulocyte Percent A 0.4 % (0-0.5); Lymphocytes Absolute Auto 1.11 K/mm3 (0.9-3.2); Lymphocytes Percent Auto 15.3 % (18.3-44.2); Mean Corpuscular HGB Conc 31.3 g/dl (32-36); Mean Corpuscular Hemoglobin 31.5 pg (26-34); Mean Corpuscular Volume 100.8 fl (80-100); Mean Platelet Volume 11.3 fl (7.4-10.4); Monocytes Absolute Auto 0.8 K/mm3 (0.1-0.6); Monocytes Percent Auto 10.6 % (2.6-8.5); Neutrophils Absolute Auto 4.9 K/mm3 (1.3-6.7); Platelet Count Result 205 k/mm3 (150-375); Red Blood Count 2.41 M/mm3 (4.2-5.4); White Blood Count 7.3 K/mm3 (4.5-10.0)
[2020-03-11 05:58] LABS: Anion Gap 7 mmol/L (8-16); Blood Urea Nitrogen 48 mg/dL (7-17); Calcium 7.8 mg/dL (8.4-10.2); Carbon Dioxide 24 mmol/L (22-30); Chloride 105 mmol/L (98-107); Estimated CRCL calculation 23 ml/min; Estimated Glomerular Filt Rate 22; Glucose 227 mg/dL (65-105); Potassium 4.4 mmol/L (3.4-5.0); Sodium 136 mmol/L (137-145)
--- NOTE | 2020-03-11 08:15 | PM.CNCAR ---
Assessment and Plan Assessment and plan (1) CHF (congestive heart failure): Code(s): I50.9 - Heart failure, unspecified Status: Acute Assessment and Plan: 69 y/o female with h/o lymphedema, HTN, type I DM, HLD, CKD, chronic anemia, diastolic CHF, Moderate aortic stenosis, , pulmonary hypertension, MIRELA who presents with lower ext edema, weight gain and acute CHF exacerbation With recent similar admission, at that time she was switched to Bumex. She reports responding better to lasix. Her creatinine is up to 2.5 from 2 on her recent discharge Will start Lasix 40 mg IV BID with close monitoring of kidney function and electrolytes resume home antihypertensives except for Olmesartan. May resume at later time once creatinine stable She has severe pulmonary HTN and that could be contributing to her lower ext edema. She was recently started on CPAP She also has moderate to severe and need close follow up for that with consideration of TAVR in the future in the light of recurrent admissions with CHF (2) Acute on chronic renal insufficiency: Code(s): N28.9 - Disorder of kidney and ureter, unspecified; N18.9 - Chronic kidney disease, unspecified Status: Acute (3) Aortic valve stenosis: Code(s): I35.0 - Nonrheumatic aortic (valve) stenosis Status: Acute Assessment and Plan: Moderate to severe (4) Lymphedema: Code(s): I89.0 - Lymphedema, not elsewhere classified Status: Acute (5) Coronary artery disease: Code(s): I25.10 - Atherosclerotic heart disease of [place] coronary artery without angina pectoris Status: Acute Assessment and Plan: Mild on recent cath. Continue ASA and statin History of Present Illness History of Present Illness Consult date/time: 03/11/20 08:15 69 y/o female with h/o lymphedema, HTN, type I DM, HLD, CKD, chronic anemia, diastolic CHF, Moderate aortic stenosis, , pulmonary hypertension, MIRELA who presents with lower ext edema She was recently admitted with acute CHF exacerbation and was switched from lasix to Bumex on discharge. Her creatinine was 2 on discharge.she was seen by her primary hospital orderly (Dr Ritter) yesterday when she reported worsening lower ext edema dn 6 pounds weight gain over the weekend. She feels she is not responding to the Bumex as well as she used to lasix. Her creatinine was noted to be elevated compared to her recent discharge up to 2.5 and was asked to come to the hospital. She received Lasix IV in ER and already feels better. Her creatinine this am is down to 2.2 Patient reports compliance with her medications and a low-sodium diet and denies any alcohol or tobacco use. She just started using CPAP machine and trying to get used to it She reports stable exertional dyspnea. She denies chest pain. She denies dizziness or syncope. She denies paroxysmal nocturnal dyspnea or orthopnea. EKG this admission shows: sinus rhythm with RBBB and no ischemic changes. Creatinine 2.5-->2.2 Trop normal X2. NT-pro-BNP is elevated. Chest Xray: mild pulmonary edema. She had echo in Mar 2019 with normal EF and moderate with peak velocity of 3.4 m/s and valve area 1.2 cm2 she had an echo 11/23/2019: Left ventricular systolic function is normal with an estimated ejection fraction is 50%. Grade II diastolic dysfunction of the left ventricle (pseudonormal filling pattern). Left atrial chamber dimension is severely enlarged. There is mild aortic valve regurgitation. There is moderate aortic valve stenosis with a peak velocity of 382 cm/s, mean gradient of 34 mmHg, and aortic valve area of 1.1 cm2. There is mild to moderate mitral valve regurgitation. There is mild to moderate tricuspid regurgitation. Severe pulmonary hypertension, estimated pulmonary arterial systolic pressure is 75 mmHg. Recently, she had a positive stress test on 12/11/2019, and she subsequently had LHC 01/14/20 at [facility] for further evaluation wh
[2020-03-11] MEDS: FLUTICASONE PROPIONATE 0.05% NA SPR 16 GM BTL (*BKC) 2 SPRAY NASAL (10:01)
[2020-03-11] MEDS: FUROSEMIDE INJ 40 MG/4 ML VIAL IV PUSH ×2 (10:02→16:31)
[2020-03-11] MEDS: amLODIPine BESYLATE 5 MG TABLET 10 MG PO (10:02)
[2020-03-11] MEDS: METOPROLOL TARTRATE 50 MG TAB 100 MG PO ×2 (10:02→20:26)
[2020-03-11] MEDS: hydrALAZINE HCL 50 MG TABLET PO ×2 (10:03→16:31)
[2020-03-11] MEDS: INSULIN GLARGINE (*BKC) 100 UNITS/ML 6 UNITS SUB-Q (10:17)
--- NOTE | 2020-03-11 11:20 | PM.IMHP ---
H&P: HPI History of Present Illness Date/Time: 03/11/201044 Chief Complaint: Extremity swelling Narrative: Date of Service 03/11/201044 The supervising physician for this history and physical is Dr Flex Wayne. Ms. Dwyer is a very pleasant 69yo F with history of hypertension, insulin-dependent diabetes mellitus, chronic diastolic congestive heart failure, aortic stenosis, pulmonary hypertension, and lymphedema who presented to the ED at the instruction of Dr. Ritter. Patient saw Dr Ritter in the office yesterday 03/10 for routine visit and he recommended she proceed to the ED due to elevated creatinine on lab work and worsening swelling. She was recently admitted to our facility from 02/15/20 - 02/20/20 for treatment of acute on chronic congestive heart failure at which time her lasix was discontinued and she was started on Bumex. She describes since she was discharged from the hospital she has noticed increased swelling which is worse to her left arm and left leg, in addition to at least 5 lb weight gain in the last 1 week per patient. She denies shortness of breath at rest and describes some mild exertional dyspnea that is unchanged from her baseline. Recent echocardiogram, stress testing, and cardiac testing is described below. Her creatinine during last admission was 2.4 on arrival and down to 2.0 on day of discharge, creatinine never normal on review of previous labs reflecting a degree of chronic kidney disease. She presents now with a creatinine of 2.5 down to 2.2 this morning with elevated BUN. She tells me she does not routinely follow with a plastic block boiler reliner yet but does remember meeting Dr Nolan in the hospital in 2019 when she was treated here for DKA and acute kidney injury. At this time she is admitted to the hospitalist service under observation status for management of acute on chronic CHF and acute on chronic renal failure. Dr Ritter/Dr Brannon and Dr Nolan have been consulted by ED provider. Review of Systems Review of Systems: Narrative: She reports increased arm and leg swelling since last hospital discharge a few weeks ago and weight gain. Swelling of left arm and leg are greater than right. She has history of lymphedema and notes her left leg is always more swollen than right. No chest pain, no shortness of breath at rest. Reports dry cough. No nausea, vomiting, or abdominal pain. Appetite normal. Twelve systems were reviewed with pertinent positives and negatives as per HPI. Except as documented, all other systems were reviewed and are negative. FORMERLY [facility], [facility] Past Medical History Medical History (Updated 03/11/20 @ 12:11 by Madeleine King PA-C) Acute metabolic encephalopathy Acute on chronic anemia Acute on chronic diastolic (congestive) heart failure GISELLE (acute kidney injury) Chronic anemia Chronic kidney disease, stage 3 Colon polyps Colonoscopy in August 2017 showing internal hemorrhoids. Diabetes mellitus with stage 3 chronic kidney disease, with long-term current use of insulin DKA (diabetic ketoacidoses) Hand fracture History of angiography Right leg Hyperkalemia Hyperlipidemia Hypertension Lactic acid acidosis Lymphedema Left lower extremity Mitral valve prolapse Osteopenia Positive nasal culture for methicillin resistant Staphylococcus aureus Post-menopausal Pulmonary infiltrates on CXR Retinopathy Type 2 diabetes mellitus with insulin therapy Surgical History Surgical History H/O cardiac catheterization History of bilateral tubal ligation S/P cataract surgery bilateral 10/2019 Status post laser cataract surgery of both eyes Family History Family History Mother Hypertension DVT (deep venous thrombosis) Vertigo Father Hypertension Cerebrovascular accident Sibling Graves disease Vertigo Sibling Family history of thyroid disease Family history of obesity Mother Fami
[2020-03-11 11:45] LABS: Glucose Point of Care 341 (65-105)
--- NOTE | 2020-03-11 11:48 | PM.CNNEP ---
Assessment and Plan Assessment and plan (1) GISELLE (acute kidney injury): Code(s): N17.9 - Acute kidney failure, unspecified Status: Acute Assessment and Plan: presumably due to ineffective diuresis with bumex clinically better at this time with IV lasix difficult to say if this is really GISELLE/ARF since her creatinine seems to fluctuate in the 2.0 - 2.5mg/dl range follow repeat labs and UOP (2) Chronic kidney disease, stage IV (severe): Code(s): N18.4 - Chronic kidney disease, stage 4 (severe) Status: Chronic Assessment and Plan: multifactorial etiology: - diabetes - hypertension - chronic diastolic heart failure + pulmonary HTN (leading to chronic prerenal azotemia) - need for chronic diuretic therapy to maintain her volume status which likely worsens her chronic pre-renal azotemia unfortunately, I suspect her creatinine/renal function will always fluctuate depending necessity/adjustment of her diuretics (3) Acute on chronic diastolic (congestive) heart failure: Code(s): I50.33 - Acute on chronic diastolic (congestive) heart failure Status: Acute Assessment and Plan: clinically better at this time Cardiology following (4) HTN (hypertension): Qualifiers: Hypertension type: essential hypertension Qualified Code(s): I10 - Essential (primary) hypertension Code(s): I10 - Essential (primary) hypertension Status: Chronic Assessment and Plan: reasonable control at this time follow trend with diuresis (5) Anemia: Code(s): D64.9 - Anemia, unspecified Status: Chronic Assessment and Plan: related to CKD(?) check iron studies follow trend of H/H (6) Diabetes: Code(s): E11.9 - Type 2 diabetes mellitus without complications Status: Acute Assessment and Plan: follow accuchecks glycemic control Will continue to follow. History of Present Illness Reason for Consult Consult date: 03/11/20 Reason for consult: chronic renal failure Chief Complaint Chief complaint: chf, acute on chronic renal insufficiency History of Present Illness Narrative: The patient is a 69 year old female with a past medical history as outlined below Who presented to [facility] Emergency room at the behest of her trade economist due to her rising creatinine and worsening edema/swelling. The patient apparently saw her trade economist on the day of admission for routine follow-up after her recent hospitalization earlier this month. She was hospitalized for about a week in early February 2020 for apparently an acute exacerbation of her chronic congestive heart failure. During that hospital stay, her Lasix was discontinued and she was started on Bumex on the assumption that this would do a better job of controlling her fluid status. However, after discharge, she has noticed that her swelling seems to of worsened and she notes a found 5 lb weight gain in the last week. She gave no acute symptoms of shortness of breath but did mention some mild exertional dyspnea but this did not seem to be any different than what had been in the past. Furthermore, it was noted by outpatient blood work that her creatinine was somewhat higher than on the day of discharge (2.4mg/dL in comparison to a discharge creatinine of 2.0 mg/dL). For all these reasons, she presented to the ER for further evaluation. Workup and evaluation in the emergency room demonstrated labs consistent with what appears to be a history of chronic kidney disease although her creatinine was up to 2.5 mg/dL. Her chest x-ray did not show any overt pulmonary edema but her physical exam was significant for lower extremity swelling/edema. Given the constellation of symptoms as mentioned above as well as her fluctuating kidney function, she was subsequent admitted the hospital with further evaluation and therapy.
[2020-03-11] MEDS: INSULIN ASPART (*BKC) 100 UNITS/ML SUB-Q ×4 (11:51→16:36)
[2020-03-11] MEDS: HEPARIN SODIUM 5,000 UNITS/ML VIAL 5000 UNITS SUB-Q ×2 (14:55→21:01)
[2020-03-11 16:30] LABS: Glucose Point of Care 334 (65-105)
[2020-03-11] MEDS: ASPIRIN 81 MG CHEWABLE TABLET PO (16:32)
[2020-03-11] MEDS: ATORVASTATIN 40 MG TABLET PO (17:34)
[2020-03-11] MEDS: INSULIN GLARGINE (*BKC) 100 UNITS/ML SUB-Q (20:30)
[2020-03-11 20:36] LABS: Glucose Point of Care 266 (65-105)
[2020-03-12 05:49] VITALS: BP 149/56; PULSE 62; RESP 16; TEMP 36.6; O2SAT 91
[2020-03-12] MEDS: HEPARIN SODIUM 5,000 UNITS/ML VIAL 5000 UNITS SUB-Q ×3 (05:52→21:50)
[2020-03-12 06:06] LABS: Basophils Absolute Auto 0.1 K/mm3 (0.0-0.1); Eosinophils Absolute Auto 0.3 K/mm3 (0-0.3); Eosinophils Percent Auto 4.6 % (0-4.4); Hematocrit 22.5 % (37.0-47.0); Hemoglobin 7.3 g/dL (12.0-15.0); Immature Granulocyte Absolute 0.02 K/mm3 (0.00-0.031); Immature Granulocyte Percent A 0.3 % (0-0.5); Lymphocytes Absolute Auto 1.44 K/mm3 (0.9-3.2); Lymphocytes Percent Auto 21.2 % (18.3-44.2); Mean Corpuscular HGB Conc 32.4 g/dl (32-36); Mean Corpuscular Hemoglobin 31.7 pg (26-34); Mean Corpuscular Volume 97.8 fl (80-100); Mean Platelet Volume 11.6 fl (7.4-10.4); Monocytes Absolute Auto 0.7 K/mm3 (0.1-0.6); Monocytes Percent Auto 10.3 % (2.6-8.5); Neutrophils Absolute Auto 4.2 K/mm3 (1.3-6.7); Neutrophils Percent Auto 62.6 % (45.5-73.1); Platelet Count Result 200 k/mm3 (150-375); Red Cell Distribution Width 13.8 % (11.5-14.5); White Blood Count 6.8 K/mm3 (4.5-10.0)
[2020-03-12 06:26] LABS: Alanine Aminotransferase 19 U/L (4-35); Alkaline Phosphatase 81 U/L (38-126); Anion Gap 6 mmol/L (8-16); Aspartate Amino Transferase 29 U/L (14-36); Bilirubin,Total 0.6 mg/dL (0.2-1.3); Blood Urea Nitrogen 46 mg/dL (7-17); Calcium 7.8 mg/dL (8.4-10.2); Carbon Dioxide 27 mmol/L (22-30); Chloride 102 mmol/L (98-107); Estimated CRCL calculation 22 ml/min; Estimated Glomerular Filt Rate 21; Glucose 224 mg/dL (65-105); Magnesium 1.8 mg/dL (1.6-2.3); Phosphorus 3.7 mg/dL (2.5-4.5); Potassium 3.9 mmol/L (3.4-5.0); Sodium 135 mmol/L (137-145)
[2020-03-12 07:23] LABS: Glucose Point of Care 254 (65-105)
[2020-03-12] MEDS: INSULIN ASPART (*BKC) 100 UNITS/ML SUB-Q ×6 (07:57→17:17)
[2020-03-12] MEDS: INSULIN GLARGINE (*BKC) 100 UNITS/ML 6 UNITS SUB-Q (08:00)
[2020-03-12] MEDS: FUROSEMIDE INJ 40 MG/4 ML VIAL IV PUSH ×2 (08:00→17:16)
[2020-03-12] MEDS: FLUTICASONE PROPIONATE 0.05% NA SPR 16 GM BTL (*BKC) 2 SPRAY NASAL (08:04)
[2020-03-12 08:05] VITALS: PULSE 62
[2020-03-12] MEDS: METOPROLOL TARTRATE 50 MG TAB 100 MG PO ×2 (08:05→20:09)
[2020-03-12] MEDS: amLODIPine BESYLATE 5 MG TABLET 10 MG PO (08:06)
[2020-03-12] MEDS: hydrALAZINE HCL 50 MG TABLET PO ×2 (08:09→17:16)
--- NOTE | 2020-03-12 08:12 | PM.PNCARD ---
Progress Note: A&P Assessment and Plan (1) CHF (congestive heart failure): Code(s): I50.9 - Heart failure, unspecified Status: Acute Assessment and Plan: 69 y/o female with h/o lymphedema, HTN, type I DM, HLD, CKD, chronic anemia, diastolic CHF, Moderate aortic stenosis, , pulmonary hypertension, MIRELA who presents with lower ext edema, weight gain and acute CHF exacerbation With recent similar admission, at that time she was switched to Bumex. She reports responding better to lasix. Creatinine stable on IV lasix 40 BID 2.3 this am from 2.2 yesterday She appears better compensated from CHF standpoint Consider switch to PO lasix. Will discuss with nephrology Continue antihypertensives. Resume Olmesartan when okay per nephrology She has severe pulmonary HTN and that could be contributing to her lower ext edema. She was recently started on CPAP She also has moderate to severe and need close follow up for that with consideration of TAVR in the future in the light of recurrent admissions with CHF (2) Acute on chronic renal insufficiency: Code(s): N28.9 - Disorder of kidney and ureter, unspecified; N18.9 - Chronic kidney disease, unspecified Status: Acute (3) Aortic valve stenosis: Qualifiers: Cardiac valve disease etiology: etiology unspecified Qualified Code(s): I35.0 - Nonrheumatic aortic (valve) stenosis Code(s): I35.0 - Nonrheumatic aortic (valve) stenosis Status: Chronic Assessment and Plan: Moderate to severe (4) Lymphedema: Code(s): I89.0 - Lymphedema, not elsewhere classified Status: Chronic (5) Coronary artery disease: Code(s): I25.10 - Atherosclerotic heart disease of [place] coronary artery without angina pectoris Status: Acute Assessment and Plan: Mild on recent cath. Continue ASA and statin Subjective Date/time seen: 03/12/20 08:12 No overnight events. Her leg edema continues to improve, almost back to usual. Review of Systems Review of Systems: All systems reviewed & are unremarkable except as noted in HPI and below ENT: Reports Normal hearing present Exam Narrative: Exam Narrative: in no acute distress Normal S1,S2, Systolic murmur noted decrease breathing sounds lower ext edema ++Left > Right Const: General: no acute distress Eyes: Sclera: sclerae normal Neck: Neck: no JVD Carotids: no bruits Resp: Effort & Inspection: normal respiratory effort Auscultation: clear to auscultation bilaterally Cardio: Rate: regular rate and not tachycardic Rhythm: regular rhythm Heart sounds: no gallops, no murmurs and no rubs Skin: General skin exam: normal color Neuro: Cranial nerves: Yes Normal hearing present Speech: normal speech Extrem: General: normal to inspection and no edema Psych: Affect: normal affect Objective Data Vital Signs Vital Signs: Vital Signs - 24 hr 03/11/20 10:02 03/11/20 12:00 03/11/20 14:00 Temperature 36.4 C L Pulse Rate 75 63 66 Respiratory Rate 16 Blood Pressure 164/51 H Pulse Oximetry 100 03/11/20 16:00 03/11/20 19:27 03/11/20 20:26 Temperature 36.8 C Pulse Rate 58 L 63 64 Respiratory Rate 18 Blood Pressure 120/46 L Pulse Oximetry 95 03/12/20 05:49 Temperature 36.6 C Pulse Rate 62 Respiratory Rate 16 Blood Pressure 149/56 H Pulse Oximetry 91 Intake/Output Intake/Output: Intake & Output 03/09/20 03/10/20 03/11/20 03/12/20 23:59 23:59 23:59 23:59 Intake Total 1820 150 Output Total 850 1575 600 Balance -850 245 -450 Meds/Results Medications: Active Medications Generic Name Dose Route Start Last Admin Trade Name Freq PRN Reason Stop Dose Admin Acetaminophen 650 mg 03/11/20 09:12 Acetaminophen 325 Mg Tablet PO Q4H PRN Pain or Fever Amlodipine Besylate 10 mg 03/11/20 09:15 03/11/20 10:02 Amlodipine Besylate 5 Mg Tablet PO 10 mg QAM LIS Administration Aspirin 81 mg 03/11/20 18:
[2020-03-12] MEDS: MAGNESIUM OXIDE 200 MG TABLET PO ×2 (09:00→20:09)
[2020-03-12 10:41] LABS: Creatinine Urine 44.2 mg/dL; Total Protein Urine Random 142 mg/dL; Ur Ttl Prot Creatinine Ratio 3.21 mg/mg (0-0.20)
[2020-03-12 10:50] LABS: Sodium Urine Random 106 meq/L
[2020-03-12 11:22] LABS: Glucose Point of Care 270 (65-105)
--- NOTE | 2020-03-12 11:57 | PM.PNNEP ---
Progress Note: A&P Assessment and Plan (1) GISELLE (acute kidney injury): Code(s): N17.9 - Acute kidney failure, unspecified Status: Acute Assessment and Plan: presumably due to ineffective diuresis with bumex clinically better at this time with IV lasix difficult to say if this is really GISELLE/ARF since her creatinine seems to fluctuate in the 2.0 - 2.5mg/dl range follow repeat labs and UOP (2) Chronic kidney disease, stage IV (severe): Code(s): N18.4 - Chronic kidney disease, stage 4 (severe) Status: Chronic Assessment and Plan: multifactorial etiology: - diabetes - hypertension - chronic diastolic heart failure + pulmonary HTN (leading to chronic prerenal azotemia) + valvular heart disease - need for chronic diuretic therapy to maintain her volume status which likely worsens her chronic pre-renal azotemia this is further complicated by her nephrotic range proteinuria/nephrotic syndrome unfortunately, I suspect her creatinine/renal function will always fluctuate depending necessity/adjustment of her diuretics (3) Acute on chronic diastolic (congestive) heart failure: Code(s): I50.33 - Acute on chronic diastolic (congestive) heart failure Status: Acute Assessment and Plan: clinically better at this time her edema is also likely secondary to her nephrotic range proteinuria/nephrotic syndrome continue diuresis as tolerated -- add fluid restriction not opposed to switch to oral diuretic therapy tomorrow agree with restart JOSEFINA/ARB a few days after discharge as this should help with her proteinuria Cardiology following (4) HTN (hypertension): Qualifiers: Hypertension type: essential hypertension Qualified Code(s): I10 - Essential (primary) hypertension Code(s): I10 - Essential (primary) hypertension Status: Chronic Assessment and Plan: reasonable control at this time follow trend with diuresis (5) Anemia: Code(s): D64.9 - Anemia, unspecified Status: Chronic Assessment and Plan: related to CKD(?) check iron studies follow trend of H/H (6) Diabetes: Code(s): E11.9 - Type 2 diabetes mellitus without complications Status: Acute Assessment and Plan: follow accuchecks on SSI and Lantus Will continue to follow. Subjective Date/time seen: 03/12/20 11:57 States she thinks the IV lasix is doing a better job with her urine output then bumex; swelling/edema seems to be improved in general; no acute issues or problems overnight or earlier this AM; no apparent distress noted at the time of my visit. Exam Narrative: Exam Narrative: General: WD/WN female in NAD Heart: normal S1 and S2; no rub Lungs: clear to auscultation Abdomen: soft, nontender, nondistended, positive bowel sounds Extremities: no cyanosis or clubbing; + edema in UE and LEs Skin: warm and dry Objective Data Vital Signs Vital Signs: Vital Signs Temp Pulse Resp BP Pulse Ox 03/12/20 08:05 62 03/12/20 05:49 36.6 C 62 16 149/56 H 91 03/11/20 20:26 64 03/11/20 19:27 36.8 C 63 18 120/46 L 95 Intake/Output Intake/Output: Intake & Output 03/09/20 03/10/20 03/11/20 03/12/20 23:59 23:59 23:59 23:59 Intake Total 1820 630 Output Total 850 1575 1150 Balance -850 245 -520 Meds/Results Medications: Active Medications Generic Name Dose Route Start Last Admin Trade Name Freq PRN Reason Stop Dose Admin Acetaminophen 650 mg 03/11/20 09:12 Acetaminophen 325 Mg Tablet PO Q4H PRN Pain or Fever Amlodipine Besylate 10 mg 03/11/20 09:15 03/12/20 08:06 Amlodipine Besylate 5 Mg Tablet PO 10 mg QAM LIS Administration Aspirin 81 mg 03/11/20 18:00 03/11/20 16:32 Aspirin 81 Mg Chewable Tablet PO 81 mg QPM LIS Administration Atorvastatin Calcium 40 mg 03/11/20 18:00 03/11/20 17:34 At
--- NOTE | 2020-03-12 11:57 | P.PNNP_ITS ---
Progress Note: A&P Assessment and Plan (1) GISELLE (acute kidney injury): Code(s): N17.9 - Acute kidney failure, unspecified Status: Acute Assessment and Plan: * presumably due to ineffective diuresis with bumex * clinically better at this time with IV lasix * difficult to say if this is really GISELLE/ARF since her creatinine seems to fluctuate in the 2.0 - 2.5mg/dl range * follow repeat labs and UOP (2) Chronic kidney disease, stage IV (severe): Code(s): N18.4 - Chronic kidney disease, stage 4 (severe) Status: Chronic Assessment and Plan: * multifactorial etiology: - diabetes - hypertension - chronic diastolic heart failure + pulmonary HTN (leading to chronic prerenal azotemia) + valvular heart disease - need for chronic diuretic therapy to maintain her volume status which likely worsens her chronic pre-renal azotemia * this is further complicated by her nephrotic range proteinuria/nephrotic syndrome * unfortunately, I suspect her creatinine/renal function will always fluctuate depending necessity/adjustment of her diuretics (3) Acute on chronic diastolic (congestive) heart failure: Code(s): I50.33 - Acute on chronic diastolic (congestive) heart failure Status: Acute Assessment and Plan: * clinically better at this time * her edema is also likely secondary to her nephrotic range proteinuria/nephrotic syndrome * continue diuresis as tolerated -- add fluid restriction * not opposed to switch to oral diuretic therapy tomorrow * agree with restart JOSEFINA/ARB a few days after discharge as this should help with her proteinuria * Cardiology following (4) HTN (hypertension): Qualifiers: Hypertension type: essential hypertension Qualified Code(s): I10 - Essential (primary) hypertension Code(s): I10 - Essential (primary) hypertension Status: Chronic Assessment and Plan: * reasonable control at this time * follow trend with diuresis (5) Anemia: Code(s): D64.9 - Anemia, unspecified Status: Chronic Assessment and Plan: * related to CKD(?) * check iron studies * follow trend of H/H (6) Diabetes: Code(s): E11.9 - Type 2 diabetes mellitus without complications Status: Acute Assessment and Plan: * follow accuchecks * on SSI and Lantus Will continue to follow. Subjective Date/time seen: 03/12/20 11:57 States she thinks the IV lasix is doing a better job with her urine output then bumex; swelling/edema seems to be improved in general; no acute issues or problems overnight or earlier this AM; no apparent distress noted at the time of my visit. Exam Narrative: Exam Narrative: General: WD/WN female in NAD Heart: normal S1 and S2; no rub Lungs: clear to auscultation Abdomen: soft, nontender, nondistended, positive bowel sounds Extremities: no cyanosis or clubbing; + edema in UE and LEs Skin: warm and dry Objective Data Vital Signs Vital Signs: Vital Signs Temp Pulse Resp BP Pulse Ox 03/12/20 08:05 62 03/12/20 05:49 36.6 C 62 16 149/56 H 91 03/11/20 20:26 64 03/11/20 19:27 36.8 C 63 18 120/46 L 95 Intake/Output Intake/Output: Intake & Output 03/09/20 03/10/20 03/11/20 03/12/20 23:59 23:59 23:59 23:59 Intake Total 1820 630 Output
[2020-03-12 14:10] VITALS: BP 146/54; PULSE 58; RESP 16; TEMP 36.4; O2SAT 97
--- NOTE | 2020-03-12 14:19 | PM.IMPN ---
Progress Note: A&P Assessment and Plan (1) Acute on chronic diastolic (congestive) heart failure: Code(s): I50.33 - Acute on chronic diastolic (congestive) heart failure Status: Acute Assessment and Plan: Management per cardiology. A little improved today. Patient was recently discharged 02/20/20 with 1mg Bumex BID. She reports increased arm/leg swelling and weight gain despite compliance with medication. Today she remains on IV lasix BID. Monitor daily weights, I&Os. May need to add fluid restriction if needed. (2) Acute on chronic renal failure: Qualifiers: Acute renal failure type: unspecified Chronic kidney disease stage: stage 4 (severe) Qualified Code(s): N17.9 - Acute kidney failure, unspecified; N18.4 - Chronic kidney disease, stage 4 (severe) Code(s): N17.9 - Acute kidney failure, unspecified; N18.9 - Chronic kidney disease, unspecified Status: Acute Assessment and Plan: Suspect chronic kidney disease may be related to hypertension and diabetes, now with elevated BUN and creatinine above baseline may be related to diuresis. Renal ultrasound 02/16/20 is normal. Monitor renal function and electrolytes daily, avoid nephrotoxic agents. Renal function stable today. Appreciate nephrology consultation. (3) Aortic valve stenosis: Qualifiers: Cardiac valve disease etiology: etiology unspecified Qualified Code(s): I35.0 - Nonrheumatic aortic (valve) stenosis Code(s): I35.0 - Nonrheumatic aortic (valve) stenosis Status: Chronic Assessment and Plan: As noted on last echocardiogram 11/23/19. Management per cardiology. (4) Chronic anemia: Code(s): D64.9 - Anemia, unspecified Status: Chronic Assessment and Plan: Chronic based on review of old labs. Hgb low without evidence of acute bleeding. May in part be related to renal insufficiency. Monitor CBC and consider transfusion if Hgb < 7. Check iron studies in AM. (5) HTN (hypertension): Qualifiers: Hypertension type: essential hypertension Qualified Code(s): I10 - Essential (primary) hypertension Code(s): I10 - Essential (primary) hypertension Status: Chronic Assessment and Plan: Maintained on home lopressor, hydralazine, and norvasc. Home olmesartan held on the basis of renal failure. Stable today. Monitor BP and adjust treatment as needed. (6) Insulin dependent diabetes mellitus: Status: Chronic Assessment and Plan: Patient notes she was diagnosed with diabetes in her 40s but was told she has type 1 diabetes. She has continuous glucose monitoring with a Dexcom on her abdomen. Notes her last A1c was good around 6.6%. Continue her home Lantus in AM and PM. She normally doses novolog at each meal based on carb correction. For now we will continue scheduled novolog with each meal in addition to sliding scale coverage. Blood sugars elevated but a little better than yesterday. Increase scheduled novolog, monitor with accu-cheks ACHS and adjust regimen as needed. (7) Lymphedema: Code(s): I89.0 - Lymphedema, not elsewhere classified Status: Chronic Assessment and Plan: Chronic lymphedema, uses a compression machine at home twice daily and compression stockings. Notes her left leg is always more swollen than right. Noticed her left arm was swelling more than her right since last hospitalization. Also noted that she had a mammogram of left breast at another facility and is supposed to follow up with general surgery Dr Conrad in [place] this week regarding getting a biopsy on the left breast, says she was not given many more details than that. Venous US upper extrem negative for DVT. __
--- NOTE | 2020-03-12 14:59 | PC.NURSE ---
On 03/12/20, the student, [Shirley Cook ], provided care and completed [facility] documentation on this patient. I have reviewed the student's documentation and agree with the findings.
--- NOTE | 2020-03-12 15:02 | PC.NURSE ---
On 03/12/20, the student, [ Lilia Nelson], provided care and completed [facility] documentation on this patient. I have reviewed the student's documentation and agree with the findings.
[2020-03-12] MEDS: ASPIRIN 81 MG CHEWABLE TABLET PO (17:16)
[2020-03-12] MEDS: ATORVASTATIN 40 MG TABLET PO (17:17)
[2020-03-12 17:26] LABS: Glucose Point of Care 225 (65-105)
[2020-03-12 19:17] VITALS: BP 146/71; PULSE 68; RESP 14; TEMP 36.6; O2SAT 97
[2020-03-12 20:09] VITALS: PULSE 64
[2020-03-12] MEDS: INSULIN GLARGINE (*BKC) 100 UNITS/ML SUB-Q (20:10)
[2020-03-12 20:32] LABS: Glucose Point of Care 234 (65-105)
[2020-03-12 23:29] VITALS: RESP 19; O2SAT 93
[2020-03-13] VITALS (9 sets, daily range): BP systolic 137–160; BP diastolic 55–90; PULSE 57–64; RESP 14–27; TEMP 36.1–36.5; O2SAT 95–99
[2020-03-13] MEDS: HEPARIN SODIUM 5,000 UNITS/ML VIAL 5000 UNITS SUB-Q ×3 (05:28→21:54)
[2020-03-13 06:11] LABS: Basophils Absolute Auto 0.1 K/mm3 (0.0-0.1); Eosinophils Absolute Auto 0.4 K/mm3 (0-0.3); Eosinophils Percent Auto 6.1 % (0-4.4); Hematocrit 22.6 % (37.0-47.0); Hemoglobin 7.3 g/dL (12.0-15.0); Immature Granulocyte Absolute 0.01 K/mm3 (0.00-0.031); Immature Granulocyte Percent A 0.1 % (0-0.5); Lymphocytes Absolute Auto 1.37 K/mm3 (0.9-3.2); Lymphocytes Percent Auto 20.3 % (18.3-44.2); Mean Corpuscular HGB Conc 32.3 g/dl (32-36); Mean Corpuscular Hemoglobin 31.2 pg (26-34); Mean Corpuscular Volume 96.6 fl (80-100); Mean Platelet Volume 11.7 fl (7.4-10.4); Monocytes Absolute Auto 0.7 K/mm3 (0.1-0.6); Neutrophils Absolute Auto 4.1 K/mm3 (1.3-6.7); Neutrophils Percent Auto 61.5 % (45.5-73.1); Platelet Count Result 199 k/mm3 (150-375); Red Blood Count 2.34 M/mm3 (4.2-5.4); Red Cell Distribution Width 13.7 % (11.5-14.5); White Blood Count 6.7 K/mm3 (4.5-10.0)
[2020-03-13 06:27] LABS: Anion Gap 3 mmol/L (8-16); Blood Urea Nitrogen 49 mg/dL (7-17); Carbon Dioxide 27 mmol/L (22-30); Chloride 104 mmol/L (98-107); Estimated CRCL calculation 24 ml/min; Estimated Glomerular Filt Rate 23; Glucose 215 mg/dL (65-105); Magnesium 1.7 mg/dL (1.6-2.3); Phosphorus 3.8 mg/dL (2.5-4.5); Potassium 3.8 mmol/L (3.4-5.0); Sodium 134 mmol/L (137-145)
[2020-03-13 07:05] LABS: Iron 35 ug/dL (37-170)
[2020-03-13 07:14] LABS: Percent Iron Saturation 12 % (20-50)
[2020-03-13 08:07] LABS: Glucose Point of Care 290 (65-105)
[2020-03-13] MEDS: INSULIN ASPART (*BKC) 100 UNITS/ML SUB-Q ×5 (08:30→16:30)
[2020-03-13] MEDS: INSULIN GLARGINE (*BKC) 100 UNITS/ML 6 UNITS SUB-Q (08:34)
[2020-03-13] MEDS: METOPROLOL TARTRATE 50 MG TAB 100 MG PO ×2 (08:38→20:24)
[2020-03-13] MEDS: hydrALAZINE HCL 50 MG TABLET PO ×2 (08:39→16:37)
[2020-03-13] MEDS: MAGNESIUM OXIDE 200 MG TABLET PO ×2 (08:39→20:24)
[2020-03-13] MEDS: amLODIPine BESYLATE 5 MG TABLET 10 MG PO (08:39)
[2020-03-13] MEDS: FUROSEMIDE INJ 40 MG/4 ML VIAL IV PUSH ×2 (08:40→16:37)
[2020-03-13] MEDS: FLUTICASONE PROPIONATE 0.05% NA SPR 16 GM BTL (*BKC) 2 SPRAY NASAL (08:41)
--- NOTE | 2020-03-13 11:09 | PM.IMPN ---
Progress Note: A&P Assessment and Plan (1) Acute on chronic diastolic (congestive) heart failure: Code(s): I50.33 - Acute on chronic diastolic (congestive) heart failure Status: Acute Assessment and Plan: Management per cardiology. A little improved today. Patient was recently discharged 02/20/20 with 1mg Bumex BID, but notes she was not urinating much which likely contributed to swelling. She reports increased arm/leg swelling and weight gain despite compliance with medication. Today she remains on IV lasix BID. Monitor daily weights, I&Os. Discussed case with Dr Ritter and may be able to transition to oral lasix possibly tomorrow. (2) Acute on chronic renal failure: Qualifiers: Acute renal failure type: unspecified Chronic kidney disease stage: stage 4 (severe) Qualified Code(s): N17.9 - Acute kidney failure, unspecified; N18.4 - Chronic kidney disease, stage 4 (severe) Code(s): N17.9 - Acute kidney failure, unspecified; N18.9 - Chronic kidney disease, unspecified Status: Acute Assessment and Plan: Suspect chronic kidney disease may be related to hypertension and diabetes, now with elevated BUN and creatinine above baseline may be related to diuresis. Renal ultrasound 02/16/20 is normal. Monitor renal function and electrolytes daily, avoid nephrotoxic agents. Renal function fluctuating but stable. Appreciate nephrology consultation. (3) Aortic valve stenosis: Qualifiers: Cardiac valve disease etiology: etiology unspecified Qualified Code(s): I35.0 - Nonrheumatic aortic (valve) stenosis Code(s): I35.0 - Nonrheumatic aortic (valve) stenosis Status: Chronic Assessment and Plan: As noted on last echocardiogram 11/23/19. Management per cardiology. (4) Chronic anemia: Code(s): D64.9 - Anemia, unspecified Status: Chronic Assessment and Plan: Chronic based on review of old labs. Hgb low without evidence of acute bleeding. May in part be related to renal insufficiency. Monitor CBC and consider transfusion if Hgb < 7. Iron studies show iron on lower end, will start oral iron replacement. (5) HTN (hypertension): Qualifiers: Hypertension type: essential hypertension Qualified Code(s): I10 - Essential (primary) hypertension Code(s): I10 - Essential (primary) hypertension Status: Chronic Assessment and Plan: Maintained on home lopressor, hydralazine, and norvasc. Home olmesartan held on the basis of renal failure. Stable today last 137/58. Monitor BP and adjust treatment as needed. (6) Insulin dependent diabetes mellitus: Status: Chronic Assessment and Plan: Patient notes she was diagnosed with diabetes in her 40s but was told she has type 1 diabetes. She has continuous glucose monitoring with a Dexcom on her abdomen. Notes her last A1c was good around 6.6%. Continue her home Lantus in AM and PM. She normally doses novolog at each meal based on carb correction. For now we will continue scheduled novolog with each meal in addition to sliding scale coverage. Blood sugars elevated Increase scheduled novolog, monitor with accu-cheks ACHS and adjust regimen as needed. (7) Lymphedema: Code(s): I89.0 - Lymphedema, not elsewhere classified Status: Chronic Assessment and Plan: Chronic lymphedema, uses a compression machine at home twice daily and compression stockings. Notes her left leg is always more swollen than right. Noticed her left arm was swelling more than her right since last hospitalization. Also noted that she had a mammogram of left breast at another facility and is supposed to follow up with general surgery Dr Conrad in [place]
[2020-03-13 12:42] LABS: Glucose Point of Care 239 (65-105)
--- NOTE | 2020-03-13 14:13 | PM.PNCARD ---
Progress Note: A&P Assessment and Plan (1) CHF (congestive heart failure): Code(s): I50.9 - Heart failure, unspecified Status: Acute Assessment and Plan: 69 y/o female with h/o lymphedema, HTN, type I DM, HLD, CKD, chronic anemia, diastolic CHF, Moderate aortic stenosis, , pulmonary hypertension, MIRELA who presents with lower ext edema, weight gain and acute CHF exacerbation With recent similar admission, at that time she was switched to Bumex. She reports responding better to lasix. Creatinine stable on IV lasix 40 BID 2.1 She appears better compensated from CHF standpoint Consider switch to PO lasix. Will discuss with nephrology Continue antihypertensives. Resume Olmesartan when okay per nephrology She has severe pulmonary HTN and that could be contributing to her lower ext edema. She was recently started on CPAP She also has moderate to severe and need close follow up for that with consideration of TAVR in the future in the light of recurrent admissions with CHF (2) Acute on chronic renal insufficiency: Code(s): N28.9 - Disorder of kidney and ureter, unspecified; N18.9 - Chronic kidney disease, unspecified Status: Acute (3) Aortic valve stenosis: Qualifiers: Cardiac valve disease etiology: etiology unspecified Qualified Code(s): I35.0 - Nonrheumatic aortic (valve) stenosis Code(s): I35.0 - Nonrheumatic aortic (valve) stenosis Status: Chronic Assessment and Plan: Moderate to severe (4) Lymphedema: Code(s): I89.0 - Lymphedema, not elsewhere classified Status: Chronic (5) Coronary artery disease: Code(s): I25.10 - Atherosclerotic heart disease of [place] coronary artery without angina pectoris Status: Acute Assessment and Plan: Mild on recent cath. Continue ASA and statin (6) Edema: Code(s): R60.9 - Edema, unspecified Status: Acute Assessment and Plan: Is due to diastolic heart failure, and also due to nephrotic syndrome, nephrology is on board, seems to be getting better with diuresis. Will keep on IV Lasix for 1 more day at least before switching to oral and before discharge Subjective Date/time seen: 03/13/20 14:13 She feels better, no more shortness breath and no chest pain, however she still has significant leg edema Exam Narrative: Exam Narrative: in no acute distress Normal S1,S2, Systolic murmur noted decrease breathing sounds lower ext edema ++Left > Right Const: General: no acute distress Eyes: Sclera: sclerae normal Neck: Neck: no JVD Carotids: no bruits Resp: Effort & Inspection: normal respiratory effort Auscultation: clear to auscultation bilaterally Cardio: Rate: regular rate and not tachycardic Rhythm: regular rhythm Heart sounds: no gallops, Murmur heart sound present systolic and no rubs Skin: General skin exam: normal color Neuro: Cranial nerves: Yes Normal hearing present Speech: normal speech Extrem: General: normal to inspection and pedal edema bilaterally Psych: Affect: normal affect Objective Data Vital Signs Vital Signs: Vital Signs - 24 hr 03/12/20 19:17 03/12/20 20:09 03/12/20 23:29 Temperature 36.6 C Pulse Rate 68 64 Respiratory Rate 14 19 Blood Pressure 146/71 H Pulse Oximetry 97 93 03/13/20 03:46 03/13/20 05:27 03/13/20 08:00 Temperature 36.4 C Pulse Rate 58 L 64 64 Respiratory Rate 27 H 14 14 Blood Pressure 159/90 H Pulse Oximetry 97 97 97 03/13/20 08:38 Temperature Pulse Rate 64 Respiratory Rate Blood Pressure Pulse Oximetry Intake/Output Intake/Output: Intake & Output 03/10/20 03/11/20 03/12/20 03/13/20 23:59 23:59 23:59 23:59 Intake Total 1820 1110 860 Output Total 850 9451 2050 1300 Balance -850 557 -942 -577 Meds/Results Medications: Active Medications Generic Name Dose Route Start Last Admin Trade Name Jose Carlosq PRN Reason Stop Dose Admin Acetaminophen 650 mg 03/11/20 09:12 Acetam
--- NOTE | 2020-03-13 14:34 | PM.PNNEP ---
Progress Note: A&P Assessment and Plan (1) GISELLE (acute kidney injury): Code(s): N17.9 - Acute kidney failure, unspecified Status: Acute Assessment and Plan: presumably due to ineffective diuresis with bumex clinically better at this time with IV lasix difficult to say if this is really GISELLE/ARF since her creatinine seems to fluctuate in the 2.0 - 2.5mg/dl range follow repeat labs and UOP (2) Chronic kidney disease, stage IV (severe): Code(s): N18.4 - Chronic kidney disease, stage 4 (severe) Status: Chronic Assessment and Plan: multifactorial etiology: - diabetes - hypertension - chronic diastolic heart failure + pulmonary HTN (leading to chronic prerenal azotemia) + valvular heart disease - need for chronic diuretic therapy to maintain her volume status which likely worsens her chronic pre-renal azotemia this is further complicated by her nephrotic range proteinuria/nephrotic syndrome unfortunately, I suspect her creatinine/renal function will always fluctuate depending necessity/adjustment of her diuretics (3) Acute on chronic diastolic (congestive) heart failure: Code(s): I50.33 - Acute on chronic diastolic (congestive) heart failure Status: Acute Assessment and Plan: clinically better at this time her edema is also likely secondary to her nephrotic range proteinuria/nephrotic syndrome continue diuresis as tolerated -- add fluid restriction not opposed to switch to oral diuretic therapy tomorrow agree with restart JOSEFINA/ARB a few days after discharge as this should help with her proteinuria Cardiology following (4) HTN (hypertension): Qualifiers: Hypertension type: essential hypertension Qualified Code(s): I10 - Essential (primary) hypertension Code(s): I10 - Essential (primary) hypertension Status: Chronic Assessment and Plan: reasonable control at this time follow trend with diuresis (5) Anemia: Code(s): D64.9 - Anemia, unspecified Status: Chronic Assessment and Plan: related to CKD(?) check iron studies follow trend of H/H (6) Diabetes: Code(s): E11.9 - Type 2 diabetes mellitus without complications Status: Acute Assessment and Plan: follow accuchecks on SSI and Lantus Will continue to follow. Subjective Date/time seen: 03/13/20 14:34 Seems to be doing reasonably well; good urine output with IV lasix although still significant swelling/edema in her left arm; no apparent distress voiced at this time. Exam Narrative: Exam Narrative: General: WD/WN female in NAD Heart: normal S1 and S2; no rub Lungs: clear to auscultation Abdomen: soft, nontender, nondistended, positive bowel sounds Extremities: no cyanosis or clubbing; + edema in UE and LEs (L>R) Skin: no rash or nodules Objective Data Vital Signs Vital Signs: Vital Signs Temp Pulse Resp BP Pulse Ox 03/13/20 14:00 36.1 C L 57 L 18 137/58 L 99 03/13/20 08:38 64 03/13/20 08:00 64 14 97 03/13/20 05:27 36.4 C 64 14 159/90 H 97 03/13/20 03:46 58 L 27 H 97 03/12/20 23:29 19 93 03/12/20 20:09 64 03/12/20 19:17 36.6 C 68 14 146/71 H 97 Intake/Output Intake/Output: Intake & Output 03/10/20 03/11/20 03/12/20 03/13/20 23:59 23:59 23:59 23:59 Intake Total 1820 1110 1100 Output Total 850 1575 2050 1300 Balance -850 245 940 -200 Meds/Results Medications: Active Medications Generic Name Dose Route Start Last Admin Trade Name Kadie PRN Reason Stop Dose Admin Acetaminophen 650 mg 03/11/20 09:12 Acetaminophen 325 Mg Tablet PO Q4H PRN Pain or Fever Amlodipine Besylate 10 mg 03/11/20 09:15 03/13/20 08:39 Amlodipine Besylate 5 Mg Tablet PO 10 mg QAM LIS Administration Aspirin 81 mg 03/11/20 18:00 03/12/20 17:16 Aspirin 81 Mg Chewable Tablet PO 81 mg
--- NOTE | 2020-03-13 14:34 | P.PNNP_ITS ---
Progress Note: A&P Assessment and Plan (1) GISELLE (acute kidney injury): Code(s): N17.9 - Acute kidney failure, unspecified Status: Acute Assessment and Plan: * presumably due to ineffective diuresis with bumex * clinically better at this time with IV lasix * difficult to say if this is really GISELLE/ARF since her creatinine seems to fluctuate in the 2.0 - 2.5mg/dl range * follow repeat labs and UOP (2) Chronic kidney disease, stage IV (severe): Code(s): N18.4 - Chronic kidney disease, stage 4 (severe) Status: Chronic Assessment and Plan: * multifactorial etiology: - diabetes - hypertension - chronic diastolic heart failure + pulmonary HTN (leading to chronic prerenal azotemia) + valvular heart disease - need for chronic diuretic therapy to maintain her volume status which likely worsens her chronic pre-renal azotemia * this is further complicated by her nephrotic range proteinuria/nephrotic syndrome * unfortunately, I suspect her creatinine/renal function will always fluctuate depending necessity/adjustment of her diuretics (3) Acute on chronic diastolic (congestive) heart failure: Code(s): I50.33 - Acute on chronic diastolic (congestive) heart failure Status: Acute Assessment and Plan: * clinically better at this time * her edema is also likely secondary to her nephrotic range proteinuria/nephrotic syndrome * continue diuresis as tolerated -- add fluid restriction * not opposed to switch to oral diuretic therapy tomorrow * agree with restart JOSEFINA/ARB a few days after discharge as this should help with her proteinuria * Cardiology following (4) HTN (hypertension): Qualifiers: Hypertension type: essential hypertension Qualified Code(s): I10 - Essential (primary) hypertension Code(s): I10 - Essential (primary) hypertension Status: Chronic Assessment and Plan: * reasonable control at this time * follow trend with diuresis (5) Anemia: Code(s): D64.9 - Anemia, unspecified Status: Chronic Assessment and Plan: * related to CKD(?) * check iron studies * follow trend of H/H (6) Diabetes: Code(s): E11.9 - Type 2 diabetes mellitus without complications Status: Acute Assessment and Plan: * follow accuchecks * on SSI and Lantus Will continue to follow. Subjective Date/time seen: 03/13/20 14:34 Seems to be doing reasonably well; good urine output with IV lasix although still significant swelling/edema in her left arm; no apparent distress voiced at this time. Exam Narrative: Exam Narrative: General: WD/WN female in NAD Heart: normal S1 and S2; no rub Lungs: clear to auscultation Abdomen: soft, nontender, nondistended, positive bowel sounds Extremities: no cyanosis or clubbing; + edema in UE and LEs (L>R) Skin: no rash or nodules Objective Data Vital Signs Vital Signs: Vital Signs Temp Pulse Resp BP Pulse Ox 03/13/20 14:00 36.1 C L 57 L 18 137/58 L 99 03/13/20 08:38 64 03/13/20 08:00 64 14 97 03/13/20 05:27 36.4 C 64 14 159/90 H 97 03/13/20 03:46 58 L 27 H 97 03/12/20 23:29 19 93 03/12/20 20:09 64 03/12/20 19:17 36.6 C 68 14 146/71 H 97 Intake/Output Intake/Output: Intake & Output
[2020-03-13] MEDS: INSULIN ASPART (*BKC) 100 UNITS/ML 6 UNITS SUB-Q (16:32)
[2020-03-13 16:35] LABS: Glucose Point of Care 205 (65-105)
[2020-03-13] MEDS: FERROUS SULFATE 324 MG TABLET PO (16:37)
[2020-03-13] MEDS: ASPIRIN 81 MG CHEWABLE TABLET PO (18:17)
[2020-03-13] MEDS: ATORVASTATIN 40 MG TABLET PO (18:17)
[2020-03-13 20:17] LABS: Glucose Point of Care 115 (65-105)
[2020-03-13] MEDS: INSULIN GLARGINE (*BKC) 100 UNITS/ML SUB-Q (21:55)
[2020-03-13 22:03] LABS: Glucose Point of Care 112 (65-105)
[2020-03-14 05:13] VITALS: BP 149/60; PULSE 63; RESP 14; TEMP 36.8; O2SAT 95
[2020-03-14] MEDS: HEPARIN SODIUM 5,000 UNITS/ML VIAL 5000 UNITS SUB-Q ×3 (05:17→21:00)
[2020-03-14 05:36] LABS: Basophils Absolute Auto 0.1 K/mm3 (0.0-0.1); Basophils Percent Auto 0.9 % (0.2-1.2); Eosinophils Absolute Auto 0.5 K/mm3 (0-0.3); Eosinophils Percent Auto 6.7 % (0-4.4); Hematocrit 23.3 % (37.0-47.0); Hemoglobin 7.5 g/dL (12.0-15.0); Immature Granulocyte Absolute 0.03 K/mm3 (0.00-0.031); Immature Granulocyte Percent A 0.4 % (0-0.5); Lymphocytes Percent Auto 20.5 % (18.3-44.2); Mean Corpuscular HGB Conc 32.2 g/dl (32-36); Mean Corpuscular Hemoglobin 31.3 pg (26-34); Mean Corpuscular Volume 97.1 fl (80-100); Mean Platelet Volume 11.5 fl (7.4-10.4); Monocytes Absolute Auto 0.8 K/mm3 (0.1-0.6); Monocytes Percent Auto 11.7 % (2.6-8.5); Neutrophils Absolute Auto 4.1 K/mm3 (1.3-6.7); Neutrophils Percent Auto 59.8 % (45.5-73.1); Platelet Count Result 204 k/mm3 (150-375); Red Cell Distribution Width 13.7 % (11.5-14.5); White Blood Count 6.8 K/mm3 (4.5-10.0)
[2020-03-14 05:50] LABS: Albumin Level 2.9 g/dL (3.5-5.1); Anion Gap 1 mmol/L (8-16); Blood Urea Nitrogen 50 mg/dL (7-17); Carbon Dioxide 30 mmol/L (22-30); Chloride 103 mmol/L (98-107); Estimated CRCL calculation 25 ml/min; Estimated Glomerular Filt Rate 25; Glucose 98 mg/dL (65-105); Phosphorus 4.1 mg/dL (2.5-4.5); Potassium 3.6 mmol/L (3.4-5.0); Sodium 134 mmol/L (137-145)
[2020-03-14 06:27] LABS: Magnesium 1.7 mg/dL (1.6-2.3)
[2020-03-14] MEDS: amLODIPine BESYLATE 5 MG TABLET 10 MG PO (08:07)
[2020-03-14] MEDS: FERROUS SULFATE 324 MG TABLET PO (08:07)
[2020-03-14] MEDS: hydrALAZINE HCL 50 MG TABLET PO ×2 (08:07→17:01)
[2020-03-14] MEDS: FLUTICASONE PROPIONATE 0.05% NA SPR 16 GM BTL (*BKC) 2 SPRAY NASAL (08:07)
[2020-03-14] MEDS: FUROSEMIDE INJ 40 MG/4 ML VIAL IV PUSH ×2 (08:08→17:01)
[2020-03-14] MEDS: MAGNESIUM OXIDE 200 MG TABLET PO ×2 (08:08→20:29)
[2020-03-14] MEDS: INSULIN GLARGINE (*BKC) 100 UNITS/ML 6 UNITS SUB-Q (08:11)
[2020-03-14] MEDS: INSULIN ASPART (*BKC) 100 UNITS/ML 6 UNITS SUB-Q ×2 (08:14→11:33)
[2020-03-14 08:16] VITALS: PULSE 72
[2020-03-14] MEDS: METOPROLOL TARTRATE 50 MG TAB 100 MG PO ×2 (08:16→20:27)
--- NOTE | 2020-03-14 09:03 | PM.PNCARD ---
Progress Note: A&P Assessment and Plan (1) Edema: Code(s): R60.9 - Edema, unspecified Status: Acute (2) Diabetes: Code(s): E11.9 - Type 2 diabetes mellitus without complications Status: Acute Assessment and Plan: 69 y/o female with h/o lymphedema, HTN, type I DM, HLD, CKD, chronic anemia, diastolic CHF, Moderate aortic stenosis, , pulmonary hypertension, MIRELA who presents with lower ext edema, weight gain and acute CHF exacerbation With recent similar admission, at that time she was switched to Bumex. She reports responding better to lasix. She appears better compensated from CHF standpoint Will cont IV lasix for onr more day add Metolazone monitor electrolytes and kidney function She has severe pulmonary HTN and that could be contributing to her lower ext edema. She was recently started on CPAP She also has moderate to severe and need close follow up for that with consideration of TAVR in the future in the light of recurrent admissions with CHF (3) Anemia: Code(s): D64.9 - Anemia, unspecified Status: Chronic (4) Chronic kidney disease, stage IV (severe): Code(s): N18.4 - Chronic kidney disease, stage 4 (severe) Status: Chronic (5) Acute on chronic renal failure: Qualifiers: Acute renal failure type: unspecified Chronic kidney disease stage: stage 4 (severe) Qualified Code(s): N17.9 - Acute kidney failure, unspecified; N18.4 - Chronic kidney disease, stage 4 (severe) Code(s): N17.9 - Acute kidney failure, unspecified; N18.9 - Chronic kidney disease, unspecified Status: Acute Assessment and Plan: Pt with known diastolic heart failure, and also nephrotic syndrome nephrology fu. Will keep on IV Lasix for 1 more day before discharge lasix needs to be switched to PO (6) Acute kidney injury superimposed on chronic kidney disease: Code(s): N17.9 - Acute kidney failure, unspecified; N18.9 - Chronic kidney disease, unspecified Status: Acute (7) Lymphedema: Code(s): I89.0 - Lymphedema, not elsewhere classified Status: Chronic (8) Acute on chronic diastolic (congestive) heart failure: Code(s): I50.33 - Acute on chronic diastolic (congestive) heart failure Status: Acute (9) HTN (hypertension): Qualifiers: Hypertension type: essential hypertension Qualified Code(s): I10 - Essential (primary) hypertension Code(s): I10 - Essential (primary) hypertension Status: Chronic (10) Aortic valve stenosis: Qualifiers: Cardiac valve disease etiology: etiology unspecified Qualified Code(s): I35.0 - Nonrheumatic aortic (valve) stenosis Code(s): I35.0 - Nonrheumatic aortic (valve) stenosis Status: Chronic Subjective Date/time seen: 03/14/20 She feels better, no more shortness breath and no chest pain. LE edema is still present L > R. Pt states that she does have lymphedema and her LLE is always more swollen than RLE. She prefers to stay one more day than return quickly to hospital. Review of Systems Review of Systems: All systems reviewed & are unremarkable except as noted in HPI and below Constitutional: Constitutional: Reports as per HPI Eyes: Eyes: Reports as per HPI ENT: Reports system reviewed and no additional complaints, except as documented and Reports as per HPI Cardiovascular: Cardiovascular: Reports as per HPI Respiratory: Respiratory: Reports as per HPI Gastrointestinal: Gastrointestinal: Reports as per HPI Genitourinary: Genitourinary: Reports as per HPI Musculoskeletal: Musculoskeletal: Reports as per HPI Exam Const: General: no acute distress Nutritional Appearance: well nourished Orientation/consciousness: patient oriented x3 HENMT: Head: normal to inspection and atraumatic Ears: hearing grossly normal bilaterally Face and sinus: normal facial exam Eyes: General: appearance normal, both eyes and all related structures Pupils:
[2020-03-14 09:43] LABS: Glucose Point of Care 153 (65-105)
[2020-03-14] MEDS: MAGNESIUM OXIDE 400 MG TABLET 800 MG PO (11:32)
[2020-03-14] MEDS: metOLazone 2.5 MG TABLET PO (11:32)
[2020-03-14] MEDS: INSULIN ASPART (*BKC) 100 UNITS/ML SUB-Q (11:33)
[2020-03-14 11:57] LABS: Glucose Point of Care 214 (65-105)
--- NOTE | 2020-03-14 13:51 | PM.PNNEP ---
Progress Note: A&P Assessment and Plan (1) GISELLE (acute kidney injury): Code(s): N17.9 - Acute kidney failure, unspecified Status: Acute Assessment and Plan: presumably due to ineffective diuresis with bumex clinically better at this time with IV lasix difficult to say if this is really GISELLE/ARF since her creatinine seems to fluctuate in the 2.0 - 2.5mg/dl range follow repeat labs and UOP (2) Chronic kidney disease, stage IV (severe): Code(s): N18.4 - Chronic kidney disease, stage 4 (severe) Status: Chronic Assessment and Plan: multifactorial etiology: - diabetes - hypertension - chronic diastolic heart failure + pulmonary HTN (leading to chronic prerenal azotemia) + valvular heart disease - need for chronic diuretic therapy to maintain her volume status which likely worsens her chronic pre-renal azotemia this is further complicated by her nephrotic range proteinuria/nephrotic syndrome unfortunately, I suspect her creatinine/renal function will always fluctuate depending necessity/adjustment of her diuretics (3) Acute on chronic diastolic (congestive) heart failure: Code(s): I50.33 - Acute on chronic diastolic (congestive) heart failure Status: Acute Assessment and Plan: clinically better at this time her edema is also likely secondary to her nephrotic range proteinuria/nephrotic syndrome continue diuresis as tolerated -- continue fluid restriction; metolazone added today not opposed to switch to oral diuretic therapy when okay with Cardiology agree with restart JOSEFINA/ARB a few days after discharge as this should help with her proteinuria Cardiology following (4) HTN (hypertension): Qualifiers: Hypertension type: essential hypertension Qualified Code(s): I10 - Essential (primary) hypertension Code(s): I10 - Essential (primary) hypertension Status: Chronic Assessment and Plan: reasonable control at this time follow trend with diuresis (5) Anemia: Code(s): D64.9 - Anemia, unspecified Status: Chronic Assessment and Plan: related to CKD(?) check iron studies follow trend of H/H (6) Diabetes: Code(s): E11.9 - Type 2 diabetes mellitus without complications Status: Acute Assessment and Plan: follow accuchecks on SSI and Lantus Will continue to follow. Subjective Date/time seen: 03/14/20 13:51 Swelling and edema slowly improving although noted that edema is more prominent on left in comparison to right; metolazone added by Cardiology today; no other apparent issues or concerns voiced at this time. Exam Narrative: Exam Narrative: General: WD/WN female in NAD Heart: normal S1 and S2; no rub Lungs: clear to auscultation Abdomen: soft, nontender, nondistended, positive bowel sounds Extremities: no cyanosis or clubbing; + edema in UE and LEs (L>R) Skin: warm and dry Objective Data Vital Signs Vital Signs: Vital Signs Temp Pulse Resp BP Pulse Ox 03/14/20 08:16 72 03/14/20 05:13 36.8 C 63 14 149/60 H 95 03/13/20 23:10 22 H 95 03/13/20 20:24 62 03/13/20 20:07 36.5 C 64 18 158/55 H 98 Intake/Output Intake/Output: Intake & Output 03/11/20 03/12/20 03/13/20 03/14/20 23:59 23:59 23:59 23:59 Intake Total 1820 1110 1580 1130 Output Total 1575 2050 2600 1200 Balance 245 -940 -1020 -70 Meds/Results Medications: Active Medications Generic Name Dose Route Start Last Admin Trade Name Freq PRN Reason Stop Dose Admin Acetaminophen 650 mg 03/11/20 09:12 Acetaminophen 325 Mg Tablet PO Q4H PRN Pain or Fever Amlodipine Besylate 10 mg 03/11/20 09:15 03/14/20 08:07 Amlodipine Besylate 5 Mg Tablet PO 10 mg QAM LIS Administration Aspirin 81 mg 03/11/20 18:00 03/13/20 18:17 Aspirin 81 Mg Chewable Tablet PO 81 mg QPM LIS Administration At
--- NOTE | 2020-03-14 13:51 | P.PNNP_ITS ---
Progress Note: A&P Assessment and Plan (1) GISELLE (acute kidney injury): Code(s): N17.9 - Acute kidney failure, unspecified Status: Acute Assessment and Plan: * presumably due to ineffective diuresis with bumex * clinically better at this time with IV lasix * difficult to say if this is really GISELLE/ARF since her creatinine seems to fluctuate in the 2.0 - 2.5mg/dl range * follow repeat labs and UOP (2) Chronic kidney disease, stage IV (severe): Code(s): N18.4 - Chronic kidney disease, stage 4 (severe) Status: Chronic Assessment and Plan: * multifactorial etiology: - diabetes - hypertension - chronic diastolic heart failure + pulmonary HTN (leading to chronic prerenal azotemia) + valvular heart disease - need for chronic diuretic therapy to maintain her volume status which likely worsens her chronic pre-renal azotemia * this is further complicated by her nephrotic range proteinuria/nephrotic syndrome * unfortunately, I suspect her creatinine/renal function will always fluctuate depending necessity/adjustment of her diuretics (3) Acute on chronic diastolic (congestive) heart failure: Code(s): I50.33 - Acute on chronic diastolic (congestive) heart failure Status: Acute Assessment and Plan: * clinically better at this time * her edema is also likely secondary to her nephrotic range proteinuria/nephrotic syndrome * continue diuresis as tolerated -- continue fluid restriction; metolazone added today * not opposed to switch to oral diuretic therapy when okay with Cardiology * agree with restart JOSEFINA/ARB a few days after discharge as this should help with her proteinuria * Cardiology following (4) HTN (hypertension): Qualifiers: Hypertension type: essential hypertension Qualified Code(s): I10 - Essential (primary) hypertension Code(s): I10 - Essential (primary) hypertension Status: Chronic Assessment and Plan: * reasonable control at this time * follow trend with diuresis (5) Anemia: Code(s): D64.9 - Anemia, unspecified Status: Chronic Assessment and Plan: * related to CKD(?) * check iron studies * follow trend of H/H (6) Diabetes: Code(s): E11.9 - Type 2 diabetes mellitus without complications Status: Acute Assessment and Plan: * follow accuchecks * on SSI and Lantus Will continue to follow. Subjective Date/time seen: 03/14/20 13:51 Swelling and edema slowly improving although noted that edema is more prominent on left in comparison to right; metolazone added by Cardiology today; no other apparent issues or concerns voiced at this time. Exam Narrative: Exam Narrative: General: WD/WN female in NAD Heart: normal S1 and S2; no rub Lungs: clear to auscultation Abdomen: soft, nontender, nondistended, positive bowel sounds Extremities: no cyanosis or clubbing; + edema in UE and LEs (L>R) Skin: warm and dry Objective Data Vital Signs Vital Signs: Vital Signs Temp Pulse Resp BP Pulse Ox 03/14/20 08:16 72 03/14/20 05:13 36.8 C 63 14 149/60 H 95 03/13/20 23:10 22 H 95 03/13/20 20:24 62 03/13/20 20:07 36.5 C 64 18 158/55 H 98 Intake/Output Intake/Output: Intake & Output 03/11/20 03/12/20 03/13/20 03/14/20 23:59 23:59 23:59 23:
[2020-03-14 14:00] VITALS: BP 143/52; PULSE 60; RESP 16; TEMP 36.6; O2SAT 98
--- NOTE | 2020-03-14 14:56 | PM.IMPN ---
Progress Note: A&P Assessment and Plan (1) Acute on chronic diastolic (congestive) heart failure: Code(s): I50.33 - Acute on chronic diastolic (congestive) heart failure Status: Acute Assessment and Plan: Management per cardiology. A little improved today. Patient was recently discharged 02/20/20 with 1mg Bumex BID, but notes she was not urinating much which likely contributed to swelling. She reports increased arm/leg swelling and weight gain despite compliance with medication. Today she remains on IV lasix BID; cardiology added metolazone today. Monitor daily weights, I&Os. May be able to transition to oral lasix possibly tomorrow. Patient also tells me today that she used to be on half a pill of something but couldn't remember the name. On further investigation into the external medication reconciliation, it appears she had been on 12.5mg spironolactone daily since Nov 2019 until day of this admission, prescribed by her PCP. She notes he added this to her regimen due to her increased swelling but her swelling did not improve as evidenced by multiple admissions. (2) Acute on chronic renal failure: Qualifiers: Acute renal failure type: unspecified Chronic kidney disease stage: stage 4 (severe) Qualified Code(s): N17.9 - Acute kidney failure, unspecified; N18.4 - Chronic kidney disease, stage 4 (severe) Code(s): N17.9 - Acute kidney failure, unspecified; N18.9 - Chronic kidney disease, unspecified Status: Acute Assessment and Plan: Suspect chronic kidney disease may be related to hypertension and diabetes. Renal ultrasound 02/16/20 is normal. Renal function fluctuating but stable. Monitor renal function and electrolytes daily, avoid nephrotoxic agents. Appreciate nephrology input. She will benefit from following with nephrology for management of CKD and nephrotic syndrome. (3) Aortic valve stenosis: Qualifiers: Cardiac valve disease etiology: etiology unspecified Qualified Code(s): I35.0 - Nonrheumatic aortic (valve) stenosis Code(s): I35.0 - Nonrheumatic aortic (valve) stenosis Status: Chronic Assessment and Plan: As noted on last echocardiogram 11/23/19. Management per cardiology. (4) Chronic anemia: Code(s): D64.9 - Anemia, unspecified Status: Chronic Assessment and Plan: Chronic based on review of old labs. Hgb low without evidence of acute bleeding. May in part be related to renal insufficiency? Monitor CBC and consider transfusion if Hgb < 7. Iron studies show iron on lower end, started oral iron replacement. (5) HTN (hypertension): Qualifiers: Hypertension type: essential hypertension Qualified Code(s): I10 - Essential (primary) hypertension Code(s): I10 - Essential (primary) hypertension Status: Chronic Assessment and Plan: Maintained on home lopressor, hydralazine, and norvasc. Home olmesartan held on the basis of renal failure. Nephrology notes ARB can be restarted a few days after discharge. Stable today last 143/52. Monitor BP and adjust treatment as needed. (6) Insulin dependent diabetes mellitus: Status: Chronic Assessment and Plan: Patient notes she was diagnosed with diabetes in her 40s but was told she has type 1 diabetes. She has continuous glucose monitoring with a Dexcom on her abdomen. Notes her last A1c was good around 6.6%. Continue her home Lantus in AM and PM. She normally doses novolog at each meal based on carb correction. For now we will continue scheduled novolog with each meal in addition to sliding scale coverage. Blood sugars look better today. Monitor with accu-cheks ACHS and adjust regimen as needed. [facility] Dona
[2020-03-14] MEDS: ATORVASTATIN 40 MG TABLET PO (17:00)
[2020-03-14] MEDS: ASPIRIN 81 MG CHEWABLE TABLET PO (17:00)
[2020-03-14 17:42] LABS: Glucose Point of Care 99 (65-105)
[2020-03-14 20:13] VITALS: BP 134/54; PULSE 66; RESP 18; TEMP 36.9; O2SAT 97
[2020-03-14 20:27] VITALS: PULSE 64
[2020-03-14] MEDS: INSULIN GLARGINE (*BKC) 100 UNITS/ML SUB-Q (20:34)
[2020-03-14 20:40] LABS: Glucose Point of Care 192 (65-105)
[2020-03-15] VITALS (7 sets, daily range): BP systolic 141–166; BP diastolic 46–86; PULSE 61–66; RESP 16; TEMP 36.6–37.3; O2SAT 90–95
[2020-03-15 06:08] LABS: Basophils Absolute Auto 0.1 K/mm3 (0.0-0.1); Basophils Percent Auto 1.1 % (0.2-1.2); Eosinophils Absolute Auto 0.4 K/mm3 (0-0.3); Eosinophils Percent Auto 6.6 % (0-4.4); Hematocrit 22.6 % (37.0-47.0); Hemoglobin 7.3 g/dL (12.0-15.0); Immature Granulocyte Absolute 0.03 K/mm3 (0.00-0.031); Immature Granulocyte Percent A 0.5 % (0-0.5); Lymphocytes Percent Auto 20.4 % (18.3-44.2); Mean Corpuscular HGB Conc 32.3 g/dl (32-36); Mean Corpuscular Hemoglobin 30.9 pg (26-34); Mean Corpuscular Volume 95.8 fl (80-100); Mean Platelet Volume 11.7 fl (7.4-10.4); Monocytes Absolute Auto 0.8 K/mm3 (0.1-0.6); Monocytes Percent Auto 12.7 % (2.6-8.5); Neutrophils Absolute Auto 3.7 K/mm3 (1.3-6.7); Neutrophils Percent Auto 58.7 % (45.5-73.1); Platelet Count Result 204 k/mm3 (150-375); Red Blood Count 2.36 M/mm3 (4.2-5.4); Red Cell Distribution Width 13.7 % (11.5-14.5); White Blood Count 6.4 K/mm3 (4.5-10.0)
[2020-03-15 06:25] LABS: Albumin Level 2.9 g/dL (3.5-5.1); Anion Gap 3 mmol/L (8-16); Blood Urea Nitrogen 47 mg/dL (7-17); Carbon Dioxide 29 mmol/L (22-30); Chloride 100 mmol/L (98-107); Estimated CRCL calculation 23 ml/min; Estimated Glomerular Filt Rate 23; Glucose 169 mg/dL (65-105); Magnesium 1.7 mg/dL (1.6-2.3); Phosphorus 4.2 mg/dL (2.5-4.5); Potassium 3.6 mmol/L (3.4-5.0); Sodium 132 mmol/L (137-145)
[2020-03-15] MEDS: HEPARIN SODIUM 5,000 UNITS/ML VIAL 5000 UNITS SUB-Q ×3 (06:35→21:08)
[2020-03-15 08:33] LABS: Glucose Point of Care 263 (65-105)
[2020-03-15] MEDS: INSULIN ASPART (*BKC) 100 UNITS/ML SUB-Q ×2 (08:48→12:47)
[2020-03-15] MEDS: INSULIN ASPART (*BKC) 100 UNITS/ML 6 UNITS SUB-Q ×3 (08:48→17:19)
[2020-03-15] MEDS: METOPROLOL TARTRATE 50 MG TAB 100 MG PO ×2 (08:56→21:09)
[2020-03-15] MEDS: FLUTICASONE PROPIONATE 0.05% NA SPR 16 GM BTL (*BKC) 2 SPRAY NASAL (08:57)
[2020-03-15] MEDS: MAGNESIUM OXIDE 200 MG TABLET PO ×2 (08:58→21:08)
[2020-03-15] MEDS: FERROUS SULFATE 324 MG TABLET PO (08:58)
[2020-03-15] MEDS: metOLazone 2.5 MG TABLET PO (08:58)
[2020-03-15] MEDS: amLODIPine BESYLATE 5 MG TABLET 10 MG PO (08:58)
[2020-03-15] MEDS: FUROSEMIDE INJ 40 MG/4 ML VIAL IV PUSH (08:58)
[2020-03-15] MEDS: hydrALAZINE HCL 50 MG TABLET PO ×2 (08:59→17:49)
[2020-03-15] MEDS: INSULIN GLARGINE (*BKC) 100 UNITS/ML 6 UNITS SUB-Q (10:00)
--- NOTE | 2020-03-15 10:10 | PM.IMPN ---
Progress Note: A&P Assessment and Plan (1) Acute on chronic diastolic (congestive) heart failure: Code(s): I50.33 - Acute on chronic diastolic (congestive) heart failure Status: Acute Assessment and Plan: Management per cardiology. Improving Patient was recently discharged 02/20/20 with 1mg Bumex BID, but notes she was not urinating much which likely contributed to swelling. She reports increased arm/leg swelling and weight gain despite compliance with medication. Cardiology switched to oral lasix 60mg BID. Cardiology added metolazone 03/14. Monitor daily weights, I&Os. Patient also tells me that she used to be on half a pill of something but couldn't remember the name. On further investigation into the external medication reconciliation, it appears she had been on 12.5mg spironolactone daily since Nov 2019 until day of this admission, prescribed by her PCP. She notes he added this to her regimen due to her increased swelling but her swelling did not improve as evidenced by multiple admissions. (2) Acute on chronic renal failure: Qualifiers: Acute renal failure type: unspecified Chronic kidney disease stage: stage 4 (severe) Qualified Code(s): N17.9 - Acute kidney failure, unspecified; N18.4 - Chronic kidney disease, stage 4 (severe) Code(s): N17.9 - Acute kidney failure, unspecified; N18.9 - Chronic kidney disease, unspecified Status: Acute Assessment and Plan: Suspect chronic kidney disease may be related to hypertension and diabetes. Renal ultrasound 02/16/20 is normal. Renal function fluctuating but stable. Monitor renal function and electrolytes daily, avoid nephrotoxic agents. Appreciate nephrology input. She will benefit from following with nephrology for management of CKD and nephrotic syndrome. (3) Aortic valve stenosis: Qualifiers: Cardiac valve disease etiology: etiology unspecified Qualified Code(s): I35.0 - Nonrheumatic aortic (valve) stenosis Code(s): I35.0 - Nonrheumatic aortic (valve) stenosis Status: Chronic Assessment and Plan: As noted on last echocardiogram 11/23/19. Management per cardiology. (4) Chronic anemia: Code(s): D64.9 - Anemia, unspecified Status: Chronic Assessment and Plan: Chronic based on review of old labs. Hgb low without evidence of acute bleeding. May in part be related to renal insufficiency? Monitor CBC and consider transfusion if Hgb < 7. Iron studies show iron on lower end, started oral iron replacement. (5) HTN (hypertension): Qualifiers: Hypertension type: essential hypertension Qualified Code(s): I10 - Essential (primary) hypertension Code(s): I10 - Essential (primary) hypertension Status: Chronic Assessment and Plan: Maintained on home lopressor, hydralazine, and norvasc. Home olmesartan held on the basis of renal failure. Nephrology notes ARB can be restarted a few days after discharge. BPs a bit elevated today last 166/86. Monitor BP and adjust treatment as needed. (6) Insulin dependent diabetes mellitus: Status: Chronic Assessment and Plan: Patient notes she was diagnosed with diabetes in her 40s but was told she has type 1 diabetes. She has continuous glucose monitoring with a Dexcom on her abdomen. Notes her last A1c was good around 6.6%. Continue her home Lantus in AM and PM. She normally doses novolog at each meal based on carb correction. For now we will continue scheduled novolog with each meal in addition to sliding scale coverage. Monitor with accu-cheks ACHS and adjust regimen as needed. (7) Lymphedema: Code(s): I89.0 - Lymphedema, not elsewhere classified Status: Chronic
[2020-03-15 12:05] LABS: Glucose Point of Care 266 (65-105)
--- NOTE | 2020-03-15 13:09 | PM.PNCARD ---
Progress Note: A&P Assessment and Plan (1) Edema: Code(s): R60.9 - Edema, unspecified Status: Acute (2) Diabetes: Code(s): E11.9 - Type 2 diabetes mellitus without complications Status: Acute Assessment and Plan: 69 y/o female with h/o lymphedema, HTN, type I DM, HLD, CKD, chronic anemia, diastolic CHF, Moderate aortic stenosis, , pulmonary hypertension, MIRELA who presents with lower ext edema, weight gain and acute CHF exacerbation Will switch Lasix to oral 60 mg twice a day, and continue with Zaroxolyn, possible discharge tomorrow monitor electrolytes and kidney function She has severe pulmonary HTN and that could be contributing to her lower ext edema. She was recently started on CPAP She also has moderate to severe and need close follow up for that with consideration of TAVR in the future in the light of recurrent admissions with CHF (3) Anemia: Code(s): D64.9 - Anemia, unspecified Status: Chronic (4) Chronic kidney disease, stage IV (severe): Code(s): N18.4 - Chronic kidney disease, stage 4 (severe) Status: Chronic (5) Acute on chronic renal failure: Qualifiers: Acute renal failure type: unspecified Chronic kidney disease stage: stage 4 (severe) Qualified Code(s): N17.9 - Acute kidney failure, unspecified; N18.4 - Chronic kidney disease, stage 4 (severe) Code(s): N17.9 - Acute kidney failure, unspecified; N18.9 - Chronic kidney disease, unspecified Status: Acute Assessment and Plan: Pt with known diastolic heart failure, and also nephrotic syndrome nephrology fu. Will keep on IV Lasix for 1 more day before discharge lasix needs to be switched to PO (6) Acute kidney injury superimposed on chronic kidney disease: Code(s): N17.9 - Acute kidney failure, unspecified; N18.9 - Chronic kidney disease, unspecified Status: Acute (7) Lymphedema: Code(s): I89.0 - Lymphedema, not elsewhere classified Status: Chronic (8) Acute on chronic diastolic (congestive) heart failure: Code(s): I50.33 - Acute on chronic diastolic (congestive) heart failure Status: Acute (9) HTN (hypertension): Qualifiers: Hypertension type: essential hypertension Qualified Code(s): I10 - Essential (primary) hypertension Code(s): I10 - Essential (primary) hypertension Status: Chronic (10) Aortic valve stenosis: Qualifiers: Cardiac valve disease etiology: etiology unspecified Qualified Code(s): I35.0 - Nonrheumatic aortic (valve) stenosis Code(s): I35.0 - Nonrheumatic aortic (valve) stenosis Status: Chronic Subjective Date/time seen: 03/15/20 13:09 She feels better today, leg swelling is much better, she is diuresing very well with current medications Exam Narrative: Exam Narrative: in no acute distress Normal S1,S2, Systolic murmur noted decrease breathing sounds lower ext edema ++Left > Right HENMT: Head: normal to inspection and atraumatic Ears: hearing grossly normal bilaterally Face and sinus: normal facial exam Eyes: General: appearance normal, both eyes and all related structures Sclera: sclerae normal Pupils: Equal, round and reactive pupils present EOM: EOMs intact bilaterally Neck: Neck: supple and no JVD Carotids: no bruits Chest: Chest palpation & inspection: normal inspection of the chest Cardio: Jugular venous distension: no JVD Rate: regular rate and not tachycardic Rhythm: regular rhythm Heart sounds: S1 normal heart sound present, S2 normal heart sound present, no gallops, Murmur heart sound present and no rubs Peripheral pulses: Peripheral pulses 2+ throughout Neuro: General: patient oriented x3 Cranial nerves: Yes Equal, round and reactive pupils present and Yes Normal hearing present Speech: normal speech Extrem: General: no clubbing, cyanosis or edema, edema (LLE > RLE, LLE 2+, RLE 1=) and pedal edema bilaterally Objective Data Vital S
[2020-03-15 13:40] LABS: Anion Gap 4 mmol/L (8-16); Blood Urea Nitrogen 48 mg/dL (7-17); Calcium 8.6 mg/dL (8.4-10.2); Carbon Dioxide 31 mmol/L (22-30); Chloride 98 mmol/L (98-107); Estimated CRCL calculation 23 ml/min; Estimated Glomerular Filt Rate 23; Glucose 252 mg/dL (65-105); Potassium 3.7 mmol/L (3.4-5.0); Sodium 133 mmol/L (137-145)
--- NOTE | 2020-03-15 16:51 | PM.PNNEP ---
Progress Note: A&P Assessment and Plan (1) GISELLE (acute kidney injury): Code(s): N17.9 - Acute kidney failure, unspecified Status: Acute Assessment and Plan: presumably due to ineffective diuresis with bumex clinically better at this time with IV lasix - switched to oral dosage t difficult to say if this is really GISELLE/ARF since her creatinine seems to fluctuate in the 2.0 - 2.5mg/dl range follow repeat labs and UOP (2) Chronic kidney disease, stage IV (severe): Code(s): N18.4 - Chronic kidney disease, stage 4 (severe) Status: Chronic Assessment and Plan: multifactorial etiology: - diabetes - hypertension - chronic diastolic heart failure + pulmonary HTN (leading to chronic prerenal azotemia) + valvular heart disease - need for chronic diuretic therapy to maintain her volume status which likely worsens her chronic pre-renal azotemia this is further complicated by her nephrotic range proteinuria/nephrotic syndrome unfortunately, I suspect her creatinine/renal function will always fluctuate depending necessity/adjustment of her diuretics (3) Acute on chronic diastolic (congestive) heart failure: Code(s): I50.33 - Acute on chronic diastolic (congestive) heart failure Status: Acute Assessment and Plan: clinically better at this time her edema is also likely secondary to her nephrotic range proteinuria/nephrotic syndrome continue diuresis as tolerated -- continue fluid restriction; metolazone added today not opposed to switch to oral diuretic therapy when okay with Cardiology agree with restart JOSEFINA/ARB a few days after discharge as this should help with her proteinuria Cardiology following (4) HTN (hypertension): Qualifiers: Hypertension type: essential hypertension Qualified Code(s): I10 - Essential (primary) hypertension Code(s): I10 - Essential (primary) hypertension Status: Chronic Assessment and Plan: reasonable control at this time follow trend with diuresis (5) Anemia: Code(s): D64.9 - Anemia, unspecified Status: Chronic Assessment and Plan: related to CKD(?) follow trend of H/H (6) Diabetes: Code(s): E11.9 - Type 2 diabetes mellitus without complications Status: Acute Assessment and Plan: follow accuchecks on SSI and Lantus Will continue to follow. Subjective Date/time seen: 03/15/20 16:51 Continues to make slow and steady progress in terms of improvement in swelling and edema; lasix switch from IV to oral today; no other acute issues/events/problems voiced now, overnight, or earlier today. Exam Narrative: Exam Narrative: General: WD/WN female in NAD Heart: normal S1 and S2; no rub Lungs: clear to auscultation Abdomen: soft, nontender, nondistended, positive bowel sounds Extremities: no cyanosis or clubbing; + edema in UE and LEs (L>R) Skin: warm and intact Objective Data Vital Signs Vital Signs: Vital Signs Temp Pulse Resp BP Pulse Ox 03/15/20 14:00 36.8 C 61 16 166/86 H 94 03/15/20 08:56 66 03/15/20 08:00 66 16 95 03/15/20 07:46 66 157/55 H 95 03/15/20 04:30 36.6 C 66 16 141/46 H 90 03/14/20 20:27 64 03/14/20 20:13 36.9 C 66 18 134/54 L 97 Intake/Output Intake/Output: Intake & Output 03/12/20 03/13/20 03/14/20 03/15/20 23:59 23:59 23:59 23:59 Intake Total 1110 1580 1770 700 Output Total 2050 2600 2975 1650 Balance -943 -1023 -0601 -056 Meds/Results Medications: Active Medications Generic Name Dose Route Start Last Admin Trade Name Freq PRN Reason Stop Dose Admin Acetaminophen 650 mg 03/11/20 09:12 Acetaminophen 325 Mg Tablet PO Q4H PRN Pain or Fever Amlodipine Besylate 10 mg 03/11/20 09:15 03/15/20 08:58 Amlodipine Besylate 5 Mg Tablet PO 10 mg QAM LIS Administration Aspirin 81 mg 03/11/20 18:0
--- NOTE | 2020-03-15 16:51 | P.PNNP_ITS ---
Progress Note: A&P Assessment and Plan (1) GISELLE (acute kidney injury): Code(s): N17.9 - Acute kidney failure, unspecified Status: Acute Assessment and Plan: * presumably due to ineffective diuresis with bumex * clinically better at this time with IV lasix - switched to oral dosage t * difficult to say if this is really GISELLE/ARF since her creatinine seems to fluctuate in the 2.0 - 2.5mg/dl range * follow repeat labs and UOP (2) Chronic kidney disease, stage IV (severe): Code(s): N18.4 - Chronic kidney disease, stage 4 (severe) Status: Chronic Assessment and Plan: * multifactorial etiology: - diabetes - hypertension - chronic diastolic heart failure + pulmonary HTN (leading to chronic prerenal azotemia) + valvular heart disease - need for chronic diuretic therapy to maintain her volume status which likely worsens her chronic pre-renal azotemia * this is further complicated by her nephrotic range proteinuria/nephrotic syndrome * unfortunately, I suspect her creatinine/renal function will always fluctuate depending necessity/adjustment of her diuretics (3) Acute on chronic diastolic (congestive) heart failure: Code(s): I50.33 - Acute on chronic diastolic (congestive) heart failure Status: Acute Assessment and Plan: * clinically better at this time * her edema is also likely secondary to her nephrotic range proteinuria/nephrotic syndrome * continue diuresis as tolerated -- continue fluid restriction; metolazone added today * not opposed to switch to oral diuretic therapy when okay with Cardiology * agree with restart JOSEFINA/ARB a few days after discharge as this should help with her proteinuria * Cardiology following (4) HTN (hypertension): Qualifiers: Hypertension type: essential hypertension Qualified Code(s): I10 - Essential (primary) hypertension Code(s): I10 - Essential (primary) hypertension Status: Chronic Assessment and Plan: * reasonable control at this time * follow trend with diuresis (5) Anemia: Code(s): D64.9 - Anemia, unspecified Status: Chronic Assessment and Plan: * related to CKD(?) * follow trend of H/H (6) Diabetes: Code(s): E11.9 - Type 2 diabetes mellitus without complications Status: Acute Assessment and Plan: * follow accuchecks * on SSI and Lantus Will continue to follow. Subjective Date/time seen: 03/15/20 16:51 Continues to make slow and steady progress in terms of improvement in swelling and edema; lasix switch from IV to oral today; no other acute issues/events/problems voiced now, overnight, or earlier today. Exam Narrative: Exam Narrative: General: WD/WN female in NAD Heart: normal S1 and S2; no rub Lungs: clear to auscultation Abdomen: soft, nontender, nondistended, positive bowel sounds Extremities: no cyanosis or clubbing; + edema in UE and LEs (L>R) Skin: warm and intact Objective Data Vital Signs Vital Signs: Vital Signs Temp Pulse Resp BP Pulse Ox 03/15/20 14:00 36.8 C 61 16 166/86 H 94 03/15/20 08:56 66 03/15/20 08:00 66 16 95 03/15/20 07:46 66 157/55 H 95 03/15/20 04:30 36.6 C 66 16 141/46 H 90 03/14/20 20:27 64 03/14/20 20:13 36.9 C 66 18 134/54 L 97 Intake/Output Intake/Output:
[2020-03-15 17:19] LABS: Glucose Point of Care 189 (65-105)
[2020-03-15] MEDS: FUROSEMIDE 20 MG TABLET 60 MG PO (17:49)
[2020-03-15] MEDS: ATORVASTATIN 40 MG TABLET PO (17:49)
[2020-03-15] MEDS: ASPIRIN 81 MG CHEWABLE TABLET PO (17:49)
[2020-03-15] MEDS: INSULIN GLARGINE (*BKC) 100 UNITS/ML SUB-Q (21:07)
[2020-03-15 21:20] LABS: Glucose Point of Care 192 (65-105)
[2020-03-16] MEDS: HEPARIN SODIUM 5,000 UNITS/ML VIAL 5000 UNITS SUB-Q (05:08)
[2020-03-16 05:16] VITALS: BP 149/48; PULSE 59; RESP 14; TEMP 36.8; O2SAT 97
[2020-03-16 05:59] LABS: Basophils Absolute Auto 0.1 K/mm3 (0.0-0.1); Basophils Percent Auto 0.8 % (0.2-1.2); Eosinophils Absolute Auto 0.4 K/mm3 (0-0.3); Eosinophils Percent Auto 6.3 % (0-4.4); Hematocrit 22.3 % (37.0-47.0); Hemoglobin 7.2 g/dL (12.0-15.0); Immature Granulocyte Absolute 0.01 K/mm3 (0.00-0.031); Immature Granulocyte Percent A 0.2 % (0-0.5); Lymphocytes Absolute Auto 1.51 K/mm3 (0.9-3.2); Lymphocytes Percent Auto 23.7 % (18.3-44.2); Mean Corpuscular HGB Conc 32.3 g/dl (32-36); Mean Corpuscular Hemoglobin 30.9 pg (26-34); Mean Corpuscular Volume 95.7 fl (80-100); Mean Platelet Volume 11.6 fl (7.4-10.4); Monocytes Absolute Auto 0.8 K/mm3 (0.1-0.6); Monocytes Percent Auto 12.6 % (2.6-8.5); Neutrophils Absolute Auto 3.6 K/mm3 (1.3-6.7); Neutrophils Percent Auto 56.4 % (45.5-73.1); Platelet Count Result 204 k/mm3 (150-375); Red Blood Count 2.33 M/mm3 (4.2-5.4); Red Cell Distribution Width 13.9 % (11.5-14.5); White Blood Count 6.4 K/mm3 (4.5-10.0)
[2020-03-16 06:07] LABS: Anion Gap -1 mmol/L (8-16); Blood Urea Nitrogen 53 mg/dL (7-17); Calcium 8.2 mg/dL (8.4-10.2); Carbon Dioxide 32 mmol/L (22-30); Chloride 101 mmol/L (98-107); Estimated CRCL calculation 23 ml/min; Estimated Glomerular Filt Rate 23; Glucose 149 mg/dL (65-105); Magnesium 1.8 mg/dL (1.6-2.3); Potassium 3.6 mmol/L (3.4-5.0); Sodium 132 mmol/L (137-145)
[2020-03-16 07:44] LABS: Glucose Point of Care 170 (65-105)
[2020-03-16 08:00] VITALS: PULSE 65; RESP 14; O2SAT 97
[2020-03-16 08:53] VITALS: BP 164/62; PULSE 65
[2020-03-16] MEDS: INSULIN ASPART (*BKC) 100 UNITS/ML 6 UNITS SUB-Q ×2 (08:54→12:12)
[2020-03-16 08:58] VITALS: PULSE 65
[2020-03-16] MEDS: FUROSEMIDE 20 MG TABLET 60 MG PO (08:58)
[2020-03-16] MEDS: FLUTICASONE PROPIONATE 0.05% NA SPR 16 GM BTL (*BKC) 2 SPRAY NASAL (08:58)
[2020-03-16] MEDS: METOPROLOL TARTRATE 50 MG TAB 100 MG PO (08:58)
[2020-03-16] MEDS: amLODIPine BESYLATE 5 MG TABLET 10 MG PO (08:59)
[2020-03-16] MEDS: metOLazone 2.5 MG TABLET PO (08:59)
[2020-03-16] MEDS: FERROUS SULFATE 324 MG TABLET PO (08:59)
[2020-03-16] MEDS: hydrALAZINE HCL 50 MG TABLET PO (08:59)
[2020-03-16] MEDS: MAGNESIUM OXIDE 200 MG TABLET PO (08:59)
[2020-03-16] MEDS: INSULIN GLARGINE (*BKC) 100 UNITS/ML 6 UNITS SUB-Q (09:18)
--- NOTE | 2020-03-16 11:20 | PM.DS ---
DS: Admitting Diagnosis Admitting Diagnosis Admitting Diagnosis: Acute on chronic CHF DS: Discharge Diagnosis Discharge Diagnosis (1) Acute on chronic diastolic (congestive) heart failure: Code(s): I50.33 - Acute on chronic diastolic (congestive) heart failure Status: Acute Assessment and Plan: Date of Admission 03/10/20 Date of Discharge/DOS 03/16/20 Ms. Dwyer is a very pleasant 69yo F with history of hypertension, insulin-dependent diabetes mellitus, chronic diastolic congestive heart failure, moderate aortic stenosis, severe pulmonary hypertension, and lymphedema who presented to the ED at the instruction of Dr. Ritter. Patient saw Dr Ritter in the office day of arrival, 03/10, for routine visit and he recommended she proceed to the ED due to elevated creatinine on lab work and worsening arm and leg swelling. She was recently admitted to our facility from 02/15/20 - 02/20/20 for treatment of acute on chronic congestive heart failure at which time her lasix was discontinued and she was started on Bumex. She describes since she was discharged from the hospital she has noticed increased swelling which is worse to her left arm and left leg, in addition to at least 5 lb weight gain in the last 1 week, no worsening shortness of breath per se. Recent echocardiogram, stress testing, and cardiac testing is described below. She presented with a creatinine of 2.5 of from 2.0 on day of her last discharge, persistently elevated BUN. She was evaluated the hospitalist service for management of acute on chronic CHF and renal failure. He was evaluated by Cardiology, Dr. Escobar and his partners, as well as Nephrology, Dr. Nolan. Dr. Nolan describes that she has nephrotic range protein urea, nephrotic syndrome which is likely also contributing to her swelling. She was diuresed with IV Lasix twice daily which she responded well. Swelling did improve. Cardiology also started her on low-dose metolazone. Her Bumex was discontinued on arrival. She was then transitioned to oral furosemide 60mg BID which she has tolerated well so far. She is clinically improved with the therapy outlined above and hemodynamically stable for discharge on 03/16/2020. She is instructed to follow-up with Dr. Ritter this week, in addition to PCP and Dr. Nolan. (2) Acute on chronic renal failure: Qualifiers: Acute renal failure type: unspecified Chronic kidney disease stage: stage 4 (severe) Qualified Code(s): N17.9 - Acute kidney failure, unspecified; N18.4 - Chronic kidney disease, stage 4 (severe) Code(s): N17.9 - Acute kidney failure, unspecified; N18.9 - Chronic kidney disease, unspecified Status: Acute Assessment and Plan: Suspect chronic kidney disease may be related to hypertension and diabetes. Renal ultrasound 02/16/20 is normal. Renal function fluctuating but stable. She will benefit from following with nephrology for management of CKD and nephrotic syndrome. (3) Aortic valve stenosis: Qualifiers: Cardiac valve disease etiology: etiology unspecified Qualified Code(s): I35.0 - Nonrheumatic aortic (valve) stenosis Code(s): I35.0 - Nonrheumatic aortic (valve) stenosis Status: Chronic Assessment and Plan: As noted on last echocardiogram 11/23/19. Management per cardiology. (4) Chronic anemia: Code(s): D64.9 - Anemia, unspecified Status: Chronic Assessment and Plan: Chronic based on review of old labs. Hgb low without evidence of acute bleeding. May in part be related to renal insufficiency? Iron studies show iron on lower end, started oral iron replacement. (5) HTN (hypertension): Qualifiers: Hypertension type: essential hypertension Quali
[2020-03-16 12:25] LABS: Glucose Point of Care 188 (65-105)
[2020-03-16 14:00] VITALS: BP 157/50; PULSE 62; RESP 18; TEMP 35.8; O2SAT 100
[2020-03-16 16:38] LABS: Chloride Rand Ur 107 mmol/L (32-290); Chloride/Creatinine Rand Ur 243 (38-318); Creatinine Random Urine 44 mg/dL (20-275)
== END 2020-03-16 15:10 | disposition home health service (06) | DRG 291 ==
LOC: ANHED 18:25 → ANH3MED 19:24
PROVIDERS: Internal Medicine Nephrology; Physician Assistant; Specialist; Admitting Provider Family Medicine; Emergency Provider Emergency Medicine; PCP Family Medicine; Visit Provider Internal Medicine
DX: I13.0 Hypertensive heart and chronic kidney disease with heart failure and stage 1 through stage 4 chronic kidney disease, or unspecified chronic kidney disease (principal); I50.23 Acute on chronic systolic (congestive) heart failure; N18.4 Chronic kidney disease, stage 4 (severe); N17.9 Acute kidney failure, unspecified; E11.22 Type 2 diabetes mellitus with diabetic chronic kidney disease; D64.9 Anemia, unspecified; E87.5 Hyperkalemia; E78.5 Hyperlipidemia, unspecified; I89.0 Lymphedema, not elsewhere classified
CPT/HCPCS: 36415; 71046; 80048; 80053; 80069; 82436; 82570; 82728; 82948; 83540; 83550; 83735; 83880; 84100; 84156; 84300; 84484; 85025; 85610; 85730; 93005; 93970; 96372; 96374; 96376; 99285; A9270; G0378; J1644; J1815; J1940

== ENCOUNTER 2020-07-15 13:38 | Outpatient (CLI) | payer OTHER, SELFPAY ==
[2020-07-15 14:57] LABS: Albumin Level 4.3 g/dL (3.5-5.1); Anion Gap 9 mmol/L (8-16); Blood Urea Nitrogen 75 mg/dL (7-17); Calcium 8.9 mg/dL (8.4-10.2); Carbon Dioxide 29 mmol/L (22-30); Chloride 101 mmol/L (98-107); Estimated Glomerular Filt Rate 17; Glucose 75 mg/dL (65-105); Phosphorus 4.7 mg/dL (2.5-4.5); Potassium 4.7 mmol/L (3.4-5.0); Sodium 139 mmol/L (137-145)
[2020-07-15 15:08] LABS: Parathyroid Intact 278.8 pg/mL (7.5-53.5)
[2020-07-15 15:15] LABS: Creatinine Urine 33.8 mg/dL; Total Protein Urine Random 147 mg/dL; Ur Ttl Prot Creatinine Ratio 4.35 mg/mg (0-0.20)
[2020-07-15 16:25] LABS: Vitamin D 25 Hydroxy 53.7 ng/mL
== END 2020-07-15 13:39 | disposition home or self-care (01) ==
LOC: ANHLAB 13:42
PROVIDERS: PCP Family Medicine; Visit Provider Internal Medicine Nephrology
DX: N18.4 Chronic kidney disease, stage 4 (severe) (principal); E11.29 Type 2 diabetes mellitus with other diabetic kidney complication; I12.9 Hypertensive chronic kidney disease with stage 1 through stage 4 chronic kidney disease, or unspecified chronic kidney disease; R80.8 Other proteinuria
CPT/HCPCS: 36415; 80069; 82306; 82570; 83970; 84156

== ENCOUNTER 2020-08-25 18:05 | Observation (INO) | payer OTHER, SELFPAY ==
[2020-08-25] VITALS (7 sets, daily range): BP systolic 160–197; BP diastolic 49–97; PULSE 57–65; RESP 16–21; TEMP 36.6; O2SAT 94–99
--- NOTE | ~2020-08-25 | XR_ITS ---
EXAMINATION: XR chest 2V EXAM DATE: 08/25/2020 18:38 INDICATION: Shortness of breath. History CHF. TECHNIQUE: Portable AP frontal chest x-ray was obtained. Comparison is made to prior examination from 03/10/2020. FINDINGS: There is cardiomegaly and pulmonary vascular congestion again seen. No confluent consolidat ion, pneumothorax or pleural effusion suspected. Old right humeral neck fracture. IMPRESSION: Cardiomegaly, pulmonary vascular congestion. Reviewed, dictated and finalized at location A.
--- NOTE | 2020-08-25 18:08 | ECG_ITS ---
Measurements Intervals [place] Rate: 61 P: 104 CA: 176 QRS: 11 QRSD: 161 T: 98 QT: 464 QTc: 468 Interpretive Statements SINUS RHYTHM RIGHT BUNDLE BRANCH BLOCK BASELINE ARTIFACT- I, III, AVR, AVL, AVF, V1-V6 ABNORMAL ECG Electronically Signed On 08-25-2020 19:51:58 CDT by Levon Azevedo D.O.
[2020-08-25 18:55] LABS: Basophils Absolute Auto 0.1 K/mm3 (0.0-0.1); Basophils Percent Auto 0.7 % (0.2-1.2); Eosinophils Absolute Auto 0.3 K/mm3 (0-0.3); Eosinophils Percent Auto 3.7 % (0-4.4); Hematocrit 23.8 % (37.0-47.0); Hemoglobin 7.6 g/dL (12.0-15.0); Immature Granulocyte Absolute 0.02 K/mm3 (0.00-0.031); Immature Granulocyte Percent A 0.3 % (0-0.5); Lymphocytes Absolute Auto 1.05 K/mm3 (0.9-3.2); Lymphocytes Percent Auto 15.4 % (18.3-44.2); Mean Corpuscular HGB Conc 31.9 g/dl (32-36); Mean Corpuscular Hemoglobin 31.5 pg (26-34); Mean Corpuscular Volume 98.8 fl (80-100); Mean Platelet Volume 10.5 fl (7.4-10.4); Monocytes Absolute Auto 0.6 K/mm3 (0.1-0.6); Monocytes Percent Auto 9.1 % (2.6-8.5); Neutrophils Absolute Auto 4.8 K/mm3 (1.3-6.7); Neutrophils Percent Auto 70.8 % (45.5-73.1); Platelet Count Result 204 k/mm3 (150-375); Red Blood Count 2.41 M/mm3 (4.2-5.4); Red Cell Distribution Width 12.9 % (11.5-14.5); White Blood Count 6.8 K/mm3 (4.5-10.0)
[2020-08-25 19:08] LABS: Prothrombin Time 13.3 Seconds (11.1-14.7)
[2020-08-25 19:08] LABS: Anion Gap 10 mmol/L (8-16); Blood Urea Nitrogen 65 mg/dL (7-17); Carbon Dioxide 26 mmol/L (22-30); Chloride 103 mmol/L (98-107); Estimated CRCL calculation 16 ml/min; Estimated Glomerular Filt Rate 17; Glucose 195 mg/dL (65-105); Potassium 4.2 mmol/L (3.4-5.0); Sodium 139 mmol/L (137-145)
[2020-08-25 19:23] LABS: NT Pro B Type Natriuretic Pept 28700 pg/mL (5-100); Troponin I 0.105 ng/mL (0.000-0.034)
[2020-08-25 19:25] LABS: Partial Thromboplastin Time 27.6 SECONDS (22.3-36.8)
--- NOTE | 2020-08-25 21:58 | ED.SOB ---
HPI - SOB/Dyspnea General Chief Complaint: Shortness of Breath/Dyspnea Stated Complaint: SOB HX CHF Time Seen by Provider: 08/25/20 21:42 Source: patient and RN notes reviewed Limitations: no limitations History of Present Illness HPI Narrative: Patient is 69 years old white female presented to the ED with shortness of breath on exertion, worse over the last 24 hours. Patient denies any fever, chills, nausea, vomiting, chest pain, back pain. Patient is fully vaccinated for COVID-19, patient is full code. Related Data Home Medications Medication Instructions Recorded Confirmed amlodipine 10 mg PO QAM 12/29/18 03/10/20 aspirin 81 mg PO QPM 12/29/18 03/10/20 atorvastatin 40 mg PO QPM 12/29/18 03/10/20 metoprolol tartrate 100 mg PO BID 12/29/18 03/10/20 multivitamin 1 cap PO QAM 12/29/18 03/10/20 alendronate 70 mg PO WEEKLY 03/25/19 03/10/20 calcium carbonate-vitamin D3 1 tablet PO DAILY 04/18/19 03/10/20 fluticasone propionate 2 spray INTRANASAL DAILY 04/18/19 03/10/20 insulin aspart U-100 [Novolog 1 sliding scale dose SUBCUT 04/18/19 03/10/20 U-100 Insulin aspart] USEASDIRECTD Lantus U-100 Insulin 6 units SUBCUT QAM 04/23/19 03/10/20 Lantus U-100 Insulin 3 units SUBCUT 11/23/19 03/10/20 hydralazine 50 mg PO BID 11/23/19 03/10/20 olmesartan 20 mg PO DAILY 01/11/20 03/10/20 ferrous sulfate 325 mg PO BID 08/25/20 Allergies Allergy/AdvReac Type Severity Reaction Status Date / Time tramadol AdvReac Severe NAUSEA Verified 08/25/20 20:53 codeine AdvReac Intermediate MAKES HER Verified 08/25/20 20:53 FEEL BAD hydrocodone [From [place]] AdvReac Vomiting Verified 08/25/20 20:53 Review of Systems Review of Systems: Narrative: CONSTITUTIONAL: Denies fever, chills, or sweats. EYES: Denies visual changes, redness, or discharge. ENT: Denies rhinorrhea, congestion, sore throat, or otalgia. CARDIOVASCULAR: Denies chest pain, palpitations, or edema. RESPIRATORY: Denies cough or dyspnea. GASTROINTESTINAL: Denies abdominal pain, nausea, vomiting, or diarrhea. GENITOURINARY: Denies dysuria or hematuria. SKIN: Denies rash or itching. MUSCULOSKELETAL: Denies back pain, joint pain, or myalgia. NEUROLOGIC: Denies headache, numbness, or weakness. PSYCHIATRIC: Denies anxiety or depression. PENDING SALE TO [facility] Past Medical History Medical History Acute metabolic encephalopathy Acute on chronic anemia Acute on chronic diastolic (congestive) heart failure GISELLE (acute kidney injury) Chronic anemia Chronic kidney disease, stage 3 Colon polyps Colonoscopy in August 2017 showing internal hemorrhoids. Diabetes mellitus with stage 3 chronic kidney disease, with long-term current use of insulin DKA (diabetic ketoacidoses) Hand fracture History of angiography Right leg Hyperkalemia Hyperlipidemia Hypertension Lactic acid acidosis Lymphedema Left lower extremity Mitral valve prolapse Osteopenia Positive nasal culture for methicillin resistant Staphylococcus aureus Post-menopausal Pulmonary infiltrates on CXR Retinopathy Type 2 diabetes mellitus with insulin therapy Surgical History Surgical History H/O cardiac catheterization History of bilateral tubal ligation S/P cataract surgery bilateral 10/2019 Status post laser cataract surgery of both eyes Family History Family History Mother Hypertension DVT (deep venous thrombosis) Vertigo Father Hypertension Cerebrovascular accident Sibling Graves disease Vertigo Sibling Family history of thyroid disease Family history of obesity Mother Family history of cataracts Other Family history of arthritis Family history of hearing loss Social History Social History Social History: Ms. Dwyer is and lives in her own home in [place]. She has 3 daughters, and designates them
[2020-08-25 22:18] LABS: Alveolar/Arterial O2 Gradient 41.2 mmHg; Base Excess ABG 2.1 mEq/l (+/-2.0); Fractional Inspired Oxygen 21 %; HCO3 ABG 26.5 mEq/l (22.0-26.0); Oxygen Content ABG 10.7 %vol (16.0-22.0); Oxygen Saturation ABG 91.9 % (95.0-100.0); Oxyhemoglobin 89.7 % THb (90.0-100.0); PCO2 ABG 40.4 mmHg (35.0-45.0); PO2 ABG 60.2 mmHg (80.0-100.0); PO2 FiO2 Ratio Arterial Blood 2.87 %; Total Hemoglobin 8.4 g/dL (12.0-18.0); pH ABG 7.435 (7.350-7.450)
[2020-08-25 22:19] LABS: Modified Allen's Test Pass; Site Drawn LEFT RADIAL
[2020-08-25] MEDS: FUROSEMIDE INJ 40 MG/4 ML VIAL 60 MG IV PUSH (22:36)
[2020-08-25] MEDS: NITROGLYCERIN OINTMENT 1 INCH DOSE TRANSDERM (22:37)
[2020-08-26] VITALS (12 sets, daily range): BP systolic 155–178; BP diastolic 43–56; PULSE 52–66; RESP 15–19; TEMP 36.5–36.7; O2SAT 93–100; BMI 26.6
[2020-08-26] MEDS: FUROSEMIDE INJ 40 MG/4 ML VIAL IV PUSH (00:52)
--- NOTE | 2020-08-26 03:03 | ADMGEN ---
This patient, Mine Dwyer, was admitted to Intensive Care Unit-1. Patient/family oriented to hospital policies and general routines including ID bracelet, bed and alarms, visiting hours, pain management, procedures, bathroom and other care routines, personal items, smoking policy, room service/diet, and visiting hours. Information on how to activate the Rapid Response Team has been discussed. Patient/Family are encouraged to report perceived risks to care and to ask questions if they do not understand what they are told or what they should do.
[2020-08-26] MEDS: hydrALAZINE HCL 20 MG/ML VIAL 10 MG IV PUSH (04:59)
[2020-08-26] MEDS: NITROGLYCERIN OINTMENT 1 INCH DOSE TRANSDERM ×4 (04:59→23:54)
--- NOTE | 2020-08-26 07:43 | PM.IMHP ---
H&P: HPI History of Present Illness Date/Time: 08/26/20 07:00 Chief Complaint: Shortness of breath Narrative: 69-year-old female with past medical history of moderate severe aortic stenosis, chronic kidney disease, anemia chronic disease, and hypertension who presented to the ER with shortness of breath that started yesterday. She reports that the shortness of breath is worse with exertion. She has been feeling more fatigued. She went and took a nap and thought that that would help with her shortness of breath and when it did not she finally decided come to the ER. She reports that her blood pressures at home had been running at her usual range in the 140s to 150 systolic. After the patient arrived to the ER her blood pressures were more elevated. She denied any noticeable increased swelling in her legs but it is difficult to tell if she has chronic lymphedema. She has been using her lymphedema pumps as directed. She denies any orthopnea or paroxysmal nocturnal dyspnea. She had gained 1 lb from her dry weight She reports that she feels better this morning compared to when she arrived to the ER. She denies any palpitations, chest pain, cough, congestion, fevers or chills. She is fully vaccinated against COVID-19. She has not noticed any significant change in her urine output. She has been taking her medications as directed and tries to eat a heart healthy diet. She does have chronic anemia and was recently referred to a towel distributor is supposed to follow-up this week with the towel distributor regarding her recent anemia labs. Her hemoglobin and on presentation is stable compared to prior values. She denies any hematochezia or melena. Review of Systems Review of Systems: Narrative: 12 systems were reviewed with pertinent positives and negatives per HPI. Except as documented in the HPI, all other systems were reviewed and are negative. [facility] Past Medical History Medical History (Updated 08/26/20 @ 08:10 by Lolis Jacobs DO) Aortic valve stenosis moderate to severe noted on cardiac catheterization December 2019 Carotid stenosis (12/2018) bilateral carotid stenosis 50-69% Chronic anemia anemia of chronic disease Chronic kidney disease, stage IV (severe) Colon polyps Colonoscopy in August 2017 showing internal hemorrhoids. Diastolic congestive heart failure due to valvular disease grade 2 diastolic dysfunction, normal EF of 50%, severe left atrial enlargement, mild to moderate mitral valve regurgitation, [id number] tricuspid valve regurgitation Hand fracture History of angiography Right leg Without intervention Hyperlipidemia Hypertension Lymphedema bilateral lower extremities left greater than right Mitral valve prolapse Osteoporosis Post-menopausal Retinopathy Severe pulmonary hypertension noted on echocardiogram 11/2019 with RVSP of 75 Type 2 diabetes mellitus with insulin therapy Surgical History Surgical History (Updated 08/26/20 @ 07:58 by Lolis Jacobs DO) H/O cardiac catheterization (12/2019) mild coronary artery disease, moderate to severe aortic valve stenosis History of bilateral tubal ligation S/P cataract surgery bilateral 10/2019 Status post laser cataract surgery of both eyes Family History Family History Mother Hypertension DVT (deep venous thrombosis) Vertigo Father Hypertension Cerebrovascular accident Sibling Graves disease Vertigo Sibling Family history of thyroid disease Family history of obesity Mother Family history of cataracts Other Family history of arthritis Family history of hearing loss Social History Social History (Updated 08/26/20 @ 08:01 by Lolis Jacobs DO) Social History: Ms. Dwyer is and lives in her own home in [place]. She has 3 daughters. Her daughter's names are Sera Moreno, Ava Amador, and Danyell Resendez. She denies alcohol, tobacco, and drug use. 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
[2020-08-26 08:28] LABS: Glucose Point of Care 121 mg/dl (65-105)
[2020-08-26 09:16] LABS: Hematocrit 25.1 % (37.0-47.0); Hemoglobin 8.2 g/dL (12.0-15.0); Mean Corpuscular HGB Conc 32.7 g/dl (32-36); Mean Corpuscular Hemoglobin 31.5 pg (26-34); Mean Corpuscular Volume 96.5 fl (80-100); Mean Platelet Volume 10.9 fl (7.4-10.4); Platelet Count Result 208 k/mm3 (150-375); Red Cell Distribution Width 12.8 % (11.5-14.5)
[2020-08-26] MEDS: INSULIN GLARGINE (*BKC) 100 UNITS/ML 8 UNITS SUB-Q (09:33)
[2020-08-26] MEDS: FUROSEMIDE INJ 40 MG/4 ML VIAL 60 MG IV PUSH ×2 (09:33→20:43)
[2020-08-26] MEDS: MULTIVITAMINS THERAPEUTIC TAB (*BKC) 1 TABLET PO (09:35)
[2020-08-26] MEDS: FERROUS SULFATE 324 MG TABLET PO ×2 (09:35→17:44)
[2020-08-26] MEDS: hydrALAZINE HCL 50 MG TABLET PO ×3 (09:36→17:43)
[2020-08-26] MEDS: amLODIPine BESYLATE 5 MG TABLET 10 MG PO (09:36)
[2020-08-26] MEDS: METOPROLOL TARTRATE 50 MG TAB 100 MG PO ×2 (09:36→20:44)
[2020-08-26] MEDS: OLMESARTAN MEDOXOMIL 20 MG TABLET PO (09:36)
[2020-08-26] MEDS: metOLazone 2.5 MG TABLET PO (09:37)
[2020-08-26] MEDS: MAGNESIUM OXIDE 200 MG TABLET PO ×2 (09:37→17:44)
[2020-08-26] MEDS: FLUTICASONE PROPIONATE 0.05% NA SPR 16 GM BTL (*BKC) 2 SPRAY NASAL (09:37)
--- NOTE | 2020-08-26 11:24 | PM.CNNEP ---
Assessment and Plan Assessment and plan (1) Chronic kidney disease, stage IV (severe): Code(s): N18.4 - Chronic kidney disease, stage 4 (severe) Status: Chronic Assessment and Plan: baseline creatinine runs ~ 2.1 - 2.7mg/dl multifactorial etiology: - diabetes - hypertension - chronic diastolic heart failure + pulmonary HTN (leading to chronic prerenal azotemia) - need for chronic diuretic therapy to maintain her volume status which likely worsens her chronic pre-renal azotemia unfortunately, I suspect her creatinine/renal function will always fluctuate depending necessity/adjustment of her diuretics (2) Shortness of breath: Code(s): R06.02 - Shortness of breath Status: Acute Assessment and Plan: due to CHF versus aortic stenosis versus anemia versus other consult Cardiology consider switching back to oral diuretics (3) Hypertension: Code(s): I10 - Essential (primary) hypertension Status: Chronic Assessment and Plan: elevated on admission hydralazine just increased follow trend of hemodynamics (4) Lymphedema: Code(s): I89.0 - Lymphedema, not elsewhere classified Status: Chronic Assessment and Plan: chronic issue at baseline (5) Anemia: Code(s): D64.9 - Anemia, unspecified Status: Chronic Assessment and Plan: follow with Hematology as an outpatient suspect partly related to CKD empirically dose with Epogen while hospitalized follow trend of H/H (6) Diabetes: Code(s): E11.9 - Type 2 diabetes mellitus without complications Status: Chronic Assessment and Plan: follow accuchecks glycemic control Will continue to follow. History of Present Illness Reason for Consult Consult date: 08/26/20 Reason for consult: chronic renal failure Chief Complaint Chief complaint: CHF, elevated troponin, CKD History of Present Illness Narrative: The patient is a 69-year-old female with past medical history as outlined below who presented to [facility] ER with complaints of shortness of breath. The patient states that shortness of breath started the day before admission and seemed to be more worse with exertional activity. Associated symptoms included more fatigue as well. She took a nap yesterday thinking that the extra sleep would help with her shortness of breath and fatigue but this did not seem to happen. She denies any issues or problems with regard to chest pain, palpitations, dizziness, lightheadedness, or diaphoresis. She reports that her home blood pressure readings have been in the normal range for her as well. Given her known chronic medical issues in general and this new symptom she presented to the emergency room for further evaluation. Workup and evaluation emergency room demonstrated the patient to be mildly short of breath and her blood pressure was extremely elevated. She has chronic lower extremity edema secondary to lymphedema and this does not appear to be any different than baseline. Routine blood test demonstrated findings significant for her known chronic kidney disease as well as her chronic anemia which seem to be a bit worse than baseline. Her chest x-ray did not show any overt pulmonary vascular congestion / pulmonary edema given her symptomatology as noted on presentation, she was labeled as a victim given a dose of IV Lasix, and subsequent admitted the hospital for further evaluation and therapy. Since her admission, her respiratory status seems fairly stable but is difficult to say was really that much better than what it was on presentation to the emergency room to begin with. Her renal function remains relatively stable in spite of the a for mentioned use of IV diuretics but her anemia is somewhat worse. She otherwise does not appear to be any acute distress at the time of my visit. Renal consultat
--- NOTE | 2020-08-26 11:44 | PM.IMPN ---
Progress Note: A&P Assessment and Plan (1) CHF (congestive heart failure): Qualifiers: Heart failure chronicity: acute on chronic Heart failure type: diastolic Qualified Code(s): I50.33 - Acute on chronic diastolic (congestive) heart failure Code(s): I50.9 - Heart failure, unspecified Status: Acute Assessment and Plan: Echo in November 2019 showing EF 50%, Grade II diastolic dysfunction, moderate-severe , moderate MR and severe pulm HTN. BNP 39053. CXR showing pulmonary vascular congestion. Feels much better with Lasix. Diastolic CHF exacerbation with component right sided failure. (2) Elevated troponin: Code(s): R77.8 - Other specified abnormalities of plasma proteins Status: Acute Assessment and Plan: Patient's elevated troponin is likely due to a combination of her stage 4 chronic kidney disease in the setting of uncontrolled hypertension. Patient has not been having any active chest pain. EKG showing Rt BBB. Acute cardiac ischemia is less likely. The patient's troponin profile is flat. The patient had echocardiogram within the last 9 months. If she continues to have recurrence of dyspnea in the setting of severe aortic valve disease she may need to follow-up with CT surgery. Her cardiac catheterization report mentions possible need for valve replacement if maximized medical therapy is not successful in controlling symptoms. (3) Aortic valve stenosis: Qualifiers: Cardiac valve disease etiology: etiology unspecified Qualified Code(s): I35.0 - Nonrheumatic aortic (valve) stenosis Code(s): I35.0 - Nonrheumatic aortic (valve) stenosis Status: Chronic Assessment and Plan: Echo showing moderate with AUGUSTIN 1.1cm2. As above. (4) Chronic kidney disease, stage IV (severe): Code(s): N18.4 - Chronic kidney disease, stage 4 (severe) Status: Chronic Assessment and Plan: The patient's creatinine and BUN are relatively stable but felt that some of the patient's uncontrolled hypertension is due to her chronic kidney disease. Nephrology has been consulted. The patient's hydralazine was increased and await further recommendations from Nephrology regarding the patient's antihypertensive regimen. Will await further recommendations. (5) Hypertension, uncontrolled: Code(s): I10 - Essential (primary) hypertension Status: Acute Assessment and Plan: BP reviewed on 08/26. Will resume the patient's home Norvasc, angiotensin receptor kennedy, and metoprolol. Will increase the patient's hydralazine to 50 mg t.i.d.. Contineu to monitor (6) Obstructive sleep apnea on CPAP: Code(s): G47.33 - Obstructive sleep apnea (adult) (pediatric); Z99.89 - Dependence on other enabling machines and devices Status: Inactive Assessment and Plan: Patient has MIRELA and states she is compliant with her CPAP. Echo shows severe pulmonary HTN that could be contributing to her lower extremity edema. 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 Patient's glucoses are well controlled. Will resume patient's home Lantus. Will add sliding scale insulin with Accu-Cheks a.c. HS and hypoglycemia protocol. (8) Chronic anemia: Code(s): D64.9 - Anemia, unspecified Status: Chronic Assessment and Plan: Hgb 7.6 on admission. Hgb better today at 8.2 with diuresis. She is at her baseline. She already has follow-up with his hematology scheduled for later this week as outpatien
[2020-08-26 11:58] LABS: Glucose Point of Care 273 mg/dl (65-105)
[2020-08-26] MEDS: INSULIN ASPART (*BKC) 100 UNITS/ML SUB-Q ×2 (13:08→17:17)
[2020-08-26 13:15] LABS: Anion Gap 12 mmol/L (8-16); Blood Urea Nitrogen 67 mg/dL (7-17); Calcium 9.4 mg/dL (8.4-10.2); Carbon Dioxide 29 mmol/L (22-30); Chloride 95 mmol/L (98-107); Estimated CRCL calculation 19 ml/min; Estimated Glomerular Filt Rate 21; Glucose 282 mg/dL (65-105); Potassium 4.2 mmol/L (3.4-5.0); Sodium 136 mmol/L (137-145)
[2020-08-26 17:00] LABS: Glucose Point of Care 329 mg/dl (65-105)
[2020-08-26] MEDS: ATORVASTATIN 40 MG TABLET PO (17:43)
[2020-08-26] MEDS: ASPIRIN 81 MG CHEWABLE TABLET PO (17:44)
--- NOTE | 2020-08-26 18:00 | PC.NURSE ---
Report called to ABRAHAM Licea. RN notified that patient having dinner and will transfer once she is done.
--- NOTE | 2020-08-26 19:29 | PC.NURSE ---
This patient, Mine Dwyer, was transferred to [facility] on 08/26/20 at 1900. Personal belongings sent with patient. Report given to ABRAHAM Licea. Appropriate documentation sent with patient.
--- NOTE | 2020-08-26 19:31 | PC.NURSE ---
This patient, Mine Dwyer, was received from ICU 08/26/20 at 1905. Patient/family oriented to unit policies and routines
[2020-08-26] MEDS: INSULIN GLARGINE (*BKC) 100 UNITS/ML SUB-Q (20:36)
[2020-08-26] MEDS: HEPARIN SODIUM 5,000 UNITS/ML VIAL 5000 UNITS SUB-Q (20:44)
[2020-08-26 20:47] LABS: Glucose Point of Care 244 mg/dl (65-105)
[2020-08-27] VITALS (16 sets, daily range): BP systolic 129–170; BP diastolic 50–62; PULSE 53–97; RESP 16–20; TEMP 36.7–37.2; O2SAT 97–98
--- NOTE | 2020-08-27 | ECHO_ITS ---
Patient Info Name: Mine Dwyer Age: 69 years : 1950 Gender: Female Ht: 62 in Wt: 145 lbs BSA: 1.71 m2 HR: 57 bpm BP: 170 / 60 mmHg Technical Quality: Good Exam Date: 08/27/2020 9:57 AM Exam Location: [facility] Pulmonary Exam Room: 303 Patient Status: Inpatient Admit Date: 08/26/2020 Staff Ordering Physician: Zeb Fam MD Registered Nurse Fetal: Pretty Escalera RDCS Attending Provider: Lolis Jacobs DO Exam Type: CA echo doppler color flow Study Info Indications - AORTIC STENOSIS Complete two-dimensional, color flow and Doppler transthoracic echocardiogram is performed. Summary 1. Complete two-dimensional, color flow and Doppler transthoracic echocardiogram is performed. 2. There is mildly increased left ventricular wall thickness. 3. Left ventricular systolic function is normal, estimated at 55-60%. 4. Left atrial chamber dimension is moderately enlarged. 5. There is moderate to severe aortic stenosis. Aortic valve peak velocity is 3.8 m/s, aortic valve mean gradient is 36 mmHg, aortic valve area is 1.0 cm2. 6. There is mild to moderate mitral valve regurgitation. 7. There is mild tricuspid valve regurgitation. 8. Moderate pulmonary hypertension, estimated pulmonary arterial systolic pressure is 55-60 mmHg. 9. There is no pericardial effusion. Left Ventricle Left ventricular chamber dimension is normal. Left ventricular systolic function is normal, estimated at 55-60%. There is mildly increased left ventricular wall thickness. Left ventricular septal wall motion is normal. The left ventricular diastolic function is grade II diastolic dysfunction. Right Ventricle Right ventricular chamber dimension is normal. Right ventricular systolic function is normal. Left Atria Left atrial chamber dimension is moderately enlarged. Right Atria Right atrial chamber dimension is normal. Aortic Valve The aortic valve is trileaflet. Aortic valve is moderately calcified with moderate restricted leaflet motion. There is mild aortic valve regurgitation. There is moderate to severe aortic stenosis. Aortic valve peak velocity is 3.8 m/s, aortic valve mean gradient is 36 mmHg, aortic valve area is 1.0 cm2. Pulmonic Valve The pulmonic valve is normal. There is no pulmonic regurgitation. Mitral Valve The mitral valve has thickened leaflets. There is no mitral valve stenosis. There is mild to moderate mitral valve regurgitation. Mild mitral annular calcification. Tricuspid Valve The tricuspid valve leaflets are normal. There is mild tricuspid valve regurgitation. Moderate pulmonary hypertension, estimated pulmonary arterial systolic pressure is 55-60 mmHg. Pericardium/Pleural The pericardium appears normal. There is no pericardial effusion. Inferior Vena Cava Normal inferior vena cava with >50% collapse upon inspiration. Aorta The aortic root size at the sinus of Valsalva is normal. The prox ascending aorta size is normal. Left Ventricular Outflow Tract Name Value Normal LVOT 2D LVOT Diameter 2.0 cm LVOT Doppler LVOT Peak Gradient 5 mmHg L
[2020-08-27] MEDS: NITROGLYCERIN OINTMENT 1 INCH DOSE TRANSDERM (05:32)
--- NOTE | 2020-08-27 06:00 | ECG_ITS ---
Measurements Intervals Letts Rate: 59 P: 36 CT: 203 QRS: -4 QRSD: 153 T: 58 QT: 486 QTc: 483 Interpretive Statements SINUS BRADYCARDIA RIGHT BUNDLE BRANCH BLOCK ABNORMAL ECG Electronically Signed On 08-27-2020 6:42:39 CDT by Levon Azevedo D.O.
[2020-08-27 06:27] LABS: Hematocrit 22.6 % (37.0-47.0); Hemoglobin 7.1 g/dL (12.0-15.0); Mean Corpuscular HGB Conc 31.4 g/dl (32-36); Mean Corpuscular Hemoglobin 30.6 pg (26-34); Mean Corpuscular Volume 97.4 fl (80-100); Platelet Count Result 190 k/mm3 (150-375); Red Blood Count 2.32 M/mm3 (4.2-5.4); Red Cell Distribution Width 12.9 % (11.5-14.5); White Blood Count 6.5 K/mm3 (4.5-10.0)
[2020-08-27 06:35] LABS: Anion Gap 6 mmol/L (8-16); Blood Urea Nitrogen 67 mg/dL (7-17); Calcium 8.8 mg/dL (8.4-10.2); Carbon Dioxide 31 mmol/L (22-30); Chloride 98 mmol/L (98-107); Estimated CRCL calculation 16 ml/min; Estimated Glomerular Filt Rate 17; Glucose 223 mg/dL (65-105); Magnesium 1.8 mg/dL (1.6-2.3); Sodium 135 mmol/L (137-145)
[2020-08-27 08:20] LABS: Glucose Point of Care 266 mg/dl (65-105)
--- NOTE | 2020-08-27 08:50 | ECHO_ITS ---
Patient Info Name: Mine Dwyer Age: 69 years : 1950 Gender: Female Ht: 62 in Wt: 145 lbs BSA: 1.71 m2 HR: 57 bpm BP: 170 / 60 mmHg Technical Quality: Good Exam Date: 08/27/2020 9:57 AM Exam Location: [facility] Pulmonary Exam Room: 303 Patient Status: Inpatient Admit Date: 08/26/2020 Staff Ordering Physician: Zeb Fam MD Copper Miner Blasting: Pretty Escalera RDCS Attending Provider: Lolis Jacobs DO Exam Type: CA echo doppler color flow Study Info Indications - AORTIC STENOSIS Complete two-dimensional, color flow and Doppler transthoracic echocardiogram is performed. Summary 1. Complete two-dimensional, color flow and Doppler transthoracic echocardiogram is performed. 2. There is mildly increased left ventricular wall thickness. 3. Left ventricular systolic function is normal, estimated at 55-60%. 4. Left atrial chamber dimension is moderately enlarged. 5. There is moderate to severe aortic stenosis. Aortic valve peak velocity is 3.8 m/s, aortic valve mean gradient is 36 mmHg, aortic valve area is 1.0 cm2. 6. There is mild to moderate mitral valve regurgitation. 7. There is mild tricuspid valve regurgitation. 8. Moderate pulmonary hypertension, estimated pulmonary arterial systolic pressure is 55-60 mmHg. 9. There is no pericardial effusion. Left Ventricle Left ventricular chamber dimension is normal. Left ventricular systolic function is normal, estimated at 55-60%. There is mildly increased left ventricular wall thickness. Left ventricular septal wall motion is normal. The left ventricular diastolic function is grade II diastolic dysfunction. Right Ventricle Right ventricular chamber dimension is normal. Right ventricular systolic function is normal. Left Atria Left atrial chamber dimension is moderately enlarged. Right Atria Right atrial chamber dimension is normal. Aortic Valve The aortic valve is trileaflet. Aortic valve is moderately calcified with moderate restricted leaflet motion. There is mild aortic valve regurgitation. There is moderate to severe aortic stenosis. Aortic valve peak velocity is 3.8 m/s, aortic valve mean gradient is 36 mmHg, aortic valve area is 1.0 cm2. Pulmonic Valve The pulmonic valve is normal. There is no pulmonic regurgitation. Mitral Valve The mitral valve has thickened leaflets. There is no mitral valve stenosis. There is mild to moderate mitral valve regurgitation. Mild mitral annular calcification. Tricuspid Valve The tricuspid valve leaflets are normal. There is mild tricuspid valve regurgitation. Moderate pulmonary hypertension, estimated pulmonary arterial systolic pressure is 55-60 mmHg. Pericardium/Pleural The pericardium appears normal. There is no pericardial effusion. Inferior Vena Cava Normal inferior vena cava with >50% collapse upon inspiration. Aorta The aortic root size at the sinus of Valsalva is normal. The prox ascending aorta size is normal. Left Ventricular Outflow Tract Name Value Normal LVOT 2D LVOT Diameter 2.0 cm LVOT Doppler LVOT Peak Gradient 5 mmHg L
--- NOTE | 2020-08-27 08:52 | PM.CNCAR ---
Assessment and Plan Assessment and plan (1) Shortness of breath: Code(s): R06.02 - Shortness of breath Status: Acute Assessment and Plan: 69 y/o female with h/o lymphedema, HTN, type I DM, HLD, CKD, chronic anemia, diastolic CHF, Moderate aortic stenosis, , pulmonary hypertension, MIRELA who is seen in cardiac consultation for dyspnea and elevated troponin Shortness of breath is multifactorial with known moderate , CHF (EF 45-50%), MIRELA and now probably worse due to uncontrolled HTN She does not appear overtly volume overloaded on exam and her weight is close to her dry weight She received IV lasix and her creatinine went up to 2.7 from 2.3 Will switch lasix back to PO Agree with increasing hydralazine and adding Imdur. Continue Amlodipine repeat 2D echo to follow up on progression of and reassess LV function She had mild troponin elevation in the setting of HTN urgency and CKD. Had LHC in Nov with mild non obstructive disease. Continue ASA and statin Consider discharge following echo if BP better controlled. Also need monitoring of Hg 7.1 this am. (2) Moderate aortic stenosis: Code(s): I35.0 - Nonrheumatic aortic (valve) stenosis Status: Acute Assessment and Plan: Repeat 2D echo (3) CHF (congestive heart failure): Qualifiers: Heart failure chronicity: acute on chronic Heart failure type: diastolic Qualified Code(s): I50.33 - Acute on chronic diastolic (congestive) heart failure Code(s): I50.9 - Heart failure, unspecified Status: Acute Assessment and Plan: last EF 45-50%. repeat echo (4) CKD (chronic kidney disease): Qualifiers: Chronic kidney disease stage: unspecified stage Qualified Code(s): N18.9 - Chronic kidney disease, unspecified Code(s): N18.9 - Chronic kidney disease, unspecified Status: Acute Assessment and Plan: D/c IV lasix. hold Metolazone today. History of Present Illness History of Present Illness Consult date/time: 08/27/20 08:52 69 y/o female with h/o lymphedema, HTN, type I DM, HLD, CKD, chronic anemia, diastolic CHF, Moderate aortic stenosis, , pulmonary hypertension, MIRELA who is seen in cardiac consultation for dyspnea and elevated troponin She presented with dyspnea that rapidly got worse over 24 hours before she presented to the hospital. She has chronic lymphedema and her edema has not changed lately. he denies chest pain. She denies dizziness or syncope. She denies paroxysmal nocturnal dyspnea or orthopnea. In ER her BP was markedly elevated. She received IV lasix and also metolazone. Creatinine was 2.3 and up to 2.7 today. Her troponin was mildly elevated at 0.1 with flat trend EKG this admission shows: sinus rhythm with RBBB and no ischemic changes. she had an echo 11/23/2019: Left ventricular systolic function is normal with an estimated ejection fraction is 50%. Grade II diastolic dysfunction of the left ventricle (pseudonormal filling pattern). Left atrial chamber dimension is severely enlarged. There is mild aortic valve regurgitation. There is moderate aortic valve stenosis with a peak velocity of 382 cm/s, mean gradient of 34 mmHg, and aortic valve area of 1.1 cm2. There is mild to moderate mitral valve regurgitation. There is mild to moderate tricuspid regurgitation. Severe pulmonary hypertension, estimated pulmonary arterial systolic pressure is 75 mmHg. She subsequently had LHC 01/14/20 at [facility] which showed 40% then 50% stenosis in her mid LAD and 40% mid RCA stenosis. Reason For Visit: CHF, elevated troponin, CKD Review of Systems Review of Systems: All systems reviewed & are unremarkable except as noted in HPI and below Constitutional: Constitutional: Denies fatigue and Denies headache(s) Eyes: Eyes: Denies blurry vision ENT: Reports Normal hearing present and Denies headache(s) Cardiovascular: Cardiovascular: Denies chest pain, Denies diaphoresis, D
[2020-08-27] MEDS: INSULIN GLARGINE (*BKC) 100 UNITS/ML 8 UNITS SUB-Q (09:24)
[2020-08-27] MEDS: INSULIN ASPART (*BKC) 100 UNITS/ML SUB-Q ×3 (09:24→18:20)
[2020-08-27] MEDS: METOPROLOL TARTRATE 50 MG TAB 100 MG PO ×2 (09:27→20:27)
[2020-08-27] MEDS: MAGNESIUM OXIDE 200 MG TABLET PO ×2 (09:27→18:25)
[2020-08-27] MEDS: amLODIPine BESYLATE 5 MG TABLET 10 MG PO (09:27)
[2020-08-27] MEDS: calcitrioL 0.25 MCG CAPSULE PO (09:29)
[2020-08-27] MEDS: hydrALAZINE HCL 50 MG TABLET PO ×2 (09:29→20:28)
[2020-08-27] MEDS: FERROUS SULFATE 324 MG TABLET PO ×2 (09:29→18:24)
[2020-08-27] MEDS: OLMESARTAN MEDOXOMIL 20 MG TABLET PO (09:29)
[2020-08-27] MEDS: MULTIVITAMINS THERAPEUTIC TAB (*BKC) 1 TABLET PO (09:29)
[2020-08-27] MEDS: FLUTICASONE PROPIONATE 0.05% NA SPR 16 GM BTL (*BKC) 2 SPRAY NASAL (09:30)
[2020-08-27] MEDS: HEPARIN SODIUM 5,000 UNITS/ML VIAL 5000 UNITS SUB-Q ×2 (09:30→20:28)
[2020-08-27] MEDS: ISOSORBIDE MONONITRATE 30 MG TAB.ER.24H PO (10:43)
[2020-08-27 12:29] LABS: Glucose Point of Care 313 mg/dl (65-105)
--- NOTE | 2020-08-27 13:02 | PM.IMPN ---
Progress Note: A&P Assessment and Plan (1) CHF (congestive heart failure): Qualifiers: Heart failure chronicity: acute on chronic Heart failure type: diastolic Qualified Code(s): I50.33 - Acute on chronic diastolic (congestive) heart failure Code(s): I50.9 - Heart failure, unspecified Status: Acute Assessment and Plan: Echo in November 2019 showing EF 50%, Grade II diastolic dysfunction, moderate-severe , moderate MR and severe pulm HTN. BNP 71467. CXR here showing pulmonary vascular congestion. Diastolic CHF exacerbation with component right sided failure. No longer SOB. Diuretics changed to oral. Continue to monitor with her new symptoms which could be related to normalization of her BP or decreased preload too much. Echo pending. Decrease hydralazine back to home dose. Anemia playing a part? No evidence of acute blood loss. (2) Elevated troponin: Code(s): R77.8 - Other specified abnormalities of plasma proteins Status: Acute Assessment and Plan: Patient's elevated troponin is likely due to a combination of her stage 4 chronic kidney disease in the setting of uncontrolled hypertension. Patient has not been having any active chest pain. EKG showing Rt BBB. Acute cardiac ischemia is less likely. The patient's troponin profile is flat. (3) Aortic valve stenosis: Qualifiers: Cardiac valve disease etiology: etiology unspecified Qualified Code(s): I35.0 - Nonrheumatic aortic (valve) stenosis Code(s): I35.0 - Nonrheumatic aortic (valve) stenosis Status: Chronic Assessment and Plan: Echo showing moderate with AUGUSTIN 1.1cm2. Echo repeated. As above. (4) Chronic kidney disease, stage IV (severe): Code(s): N18.4 - Chronic kidney disease, stage 4 (severe) Status: Chronic Assessment and Plan: The patient's creatinine 2.7 that improved to 2.3 but now back up to 2.7 and suspect still with in the patient's baseline. Nephrology following and appreciate their input. Diuretics changed to oral. (5) Hypertension, uncontrolled: Code(s): I10 - Essential (primary) hypertension Status: Acute Assessment and Plan: BP reviewed on 08/27. Patient's home Norvasc, Benicar and metoprolol resumed. Hydralazine increased from 50 mg BID to TID. BP still elevated so Imdur added. BP better now at 134 but may be contributing to her symptoms with slight headache and feeling 'funny' if she is preload dependent and/or not used to having normal BP if HTN is chronic. Will decrease hydralazine and continue the Imdur for now. Continue to monitor (6) Obstructive sleep apnea on CPAP: Code(s): G47.33 - Obstructive sleep apnea (adult) (pediatric); Z99.89 - Dependence on other enabling machines and devices Status: Inactive Assessment and Plan: Patient has MIRELA and states she is compliant with her CPAP. Echo shows severe pulmonary HTN that could be contributing to her lower extremity edema. Continue NIV here. (7) Diabetes: Qualifiers: Diabetes mellitus complication status: with other specified complication Diabetes mellitus termite treater helper insulin use: with assisted use Diabetes mellitus type: type 2 Qualified Code(s): E11.69 - Type 2 diabetes mellitus with other specified complication; Z79.4 - termination clerk (current) use of insulin Code(s): E11.9 - Type 2 diabetes mellitus without complications Status: Acute Assessment and Plan: A1c 6.0 in February. Patient's glucoses have become poorly controlled. Continue patient's home Lantus. Continue AccuCheks covering with sliding scale. Hypoglycemia protocol available as needed. Resume insulin with carb counting. (8) Chronic anemia: Code(s): D64.9 - Anemia, unspecified Status: Chronic Assessment and Plan: Hgb 7.6 on admission. Hgb improved to 8.2 but now 7.1 today. Her baseline Hgb mostly 7-8 range. She already has
[2020-08-27 13:12] LABS: Glucose Point of Care 310 mg/dl (65-105)
--- NOTE | 2020-08-27 16:18 | P.PNNP_ITS ---
Progress Note: A&P Assessment and Plan (1) Chronic kidney disease, stage IV (severe): Code(s): N18.4 - Chronic kidney disease, stage 4 (severe) Status: Chronic Assessment and Plan: * baseline creatinine runs ~ 2.1 - 2.7mg/dl * multifactorial etiology: - diabetes - hypertension - chronic diastolic heart failure + pulmonary HTN (leading to chronic prerenal azotemia) - need for chronic diuretic therapy to maintain her volume status which likely worsens her chronic pre-renal azotemia * unfortunately, I suspect her creatinine/renal function will always fluctuate depending necessity/adjustment of her diuretics (2) Shortness of breath: Code(s): R06.02 - Shortness of breath Status: Acute Assessment and Plan: * due to CHF versus aortic stenosis versus anemia versus other? * Cardiology recommendations noted * back to oral diuretics (3) Hypertension: Code(s): I10 - Essential (primary) hypertension Status: Chronic Assessment and Plan: * elevated on admission * doing better with medication adjustments * follow trend of hemodynamics (4) Lymphedema: Code(s): I89.0 - Lymphedema, not elsewhere classified Status: Chronic Assessment and Plan: * chronic issue at baseline (5) Anemia: Code(s): D64.9 - Anemia, unspecified Status: Chronic Assessment and Plan: * follow with Hematology as an outpatient * suspect partly related to CKD * empirically dose with Epogen while hospitalized * follow trend of H/H (6) Diabetes: Code(s): E11.9 - Type 2 diabetes mellitus without complications Status: Chronic Assessment and Plan: * follow accuchecks * glycemic control Will continue to follow. Subjective Date/time seen: 08/27/20 16:18 Seen by Cardiology this AM with recommendations noted; breathing appears stable if not back to baseline; no other acute issues/events overnight or earlier this AM; no apparent distress voiced at the time of my visit. Exam Narrative: Exam Narrative: General: WD/WN female in NAD Heart: normal S1 and S2; no rub Lungs: clear to auscultation Abdomen: soft, nontender, nondistended, positive bowel sounds Extremities: no cyanosis or clubbing; chronic bilateral lyphedema (L>R) Skin: warm and dry Objective Data Vital Signs Vital Signs: Vital Signs Temp Pulse Resp BP Pulse Ox 08/27/20 14:00 36.7 C 55 L 20 139/50 L 98 08/27/20 12:36 137/54 L 08/27/20 12:00 57 L 08/27/20 11:20 97 08/27/20 09:27 60 08/27/20 08:00 57 L 08/27/20 06:00 37.2 C 57 L 16 170/60 H 97 08/27/20 04:00 53 L 08/27/20 00:00 54 L 08/26/20 22:00 36.6 C 60 18 155/45 H 100 08/26/20 18:00 61 Intake/Output Intake/Output: Intake & Output 08/24/20 08/25/20 08/26/20 08/27/20 23:59 23:59 23:59 23:59 Intake Total 1340 1280 Output Total 3450 1200 Balance -2110 80 Meds/Results Medications: Active Medications Generic Name Dose Route Start Last Admin Trade Name Jose Carlosq PRN Reason Stop Dose Admin Amlodipine Besylate 10 mg 08/26/20 09:00 08/27/20 09:27 Amlodipine Besyl
--- NOTE | 2020-08-27 16:18 | PM.PNNEP ---
Progress Note: A&P Assessment and Plan (1) Chronic kidney disease, stage IV (severe): Code(s): N18.4 - Chronic kidney disease, stage 4 (severe) Status: Chronic Assessment and Plan: baseline creatinine runs ~ 2.1 - 2.7mg/dl multifactorial etiology: - diabetes - hypertension - chronic diastolic heart failure + pulmonary HTN (leading to chronic prerenal azotemia) - need for chronic diuretic therapy to maintain her volume status which likely worsens her chronic pre-renal azotemia unfortunately, I suspect her creatinine/renal function will always fluctuate depending necessity/adjustment of her diuretics (2) Shortness of breath: Code(s): R06.02 - Shortness of breath Status: Acute Assessment and Plan: due to CHF versus aortic stenosis versus anemia versus other? Cardiology recommendations noted back to oral diuretics (3) Hypertension: Code(s): I10 - Essential (primary) hypertension Status: Chronic Assessment and Plan: elevated on admission doing better with medication adjustments follow trend of hemodynamics (4) Lymphedema: Code(s): I89.0 - Lymphedema, not elsewhere classified Status: Chronic Assessment and Plan: chronic issue at baseline (5) Anemia: Code(s): D64.9 - Anemia, unspecified Status: Chronic Assessment and Plan: follow with Hematology as an outpatient suspect partly related to CKD empirically dose with Epogen while hospitalized follow trend of H/H (6) Diabetes: Code(s): E11.9 - Type 2 diabetes mellitus without complications Status: Chronic Assessment and Plan: follow accuchecks glycemic control Will continue to follow. Subjective Date/time seen: 08/27/20 16:18 Seen by Cardiology this AM with recommendations noted; breathing appears stable if not back to baseline; no other acute issues/events overnight or earlier this AM; no apparent distress voiced at the time of my visit. Exam Narrative: Exam Narrative: General: WD/WN female in NAD Heart: normal S1 and S2; no rub Lungs: clear to auscultation Abdomen: soft, nontender, nondistended, positive bowel sounds Extremities: no cyanosis or clubbing; chronic bilateral lyphedema (L>R) Skin: warm and dry Objective Data Vital Signs Vital Signs: Vital Signs Temp Pulse Resp BP Pulse Ox 08/27/20 14:00 36.7 C 55 L 20 139/50 L 98 08/27/20 12:36 137/54 L 07/14/21 12:00 57 L 08/27/20 11:20 97 08/27/20 09:27 60 08/27/20 08:00 57 L 08/27/20 06:00 37.2 C 57 L 16 170/60 H 97 08/27/20 04:00 53 L 08/27/20 00:00 54 L 08/26/20 22:00 36.6 C 60 18 155/45 H 100 08/26/20 18:00 61 Intake/Output Intake/Output: Intake & Output 08/24/20 08/25/20 08/26/20 08/27/20 23:59 23:59 23:59 23:59 Intake Total 1340 1280 Output Total 3450 1200 Balance -2110 80 Meds/Results Medications: Active Medications Generic Name Dose Route Start Last Admin Trade Name Freq PRN Reason Stop Dose Admin Amlodipine Besylate 10 mg 08/26/20 09:00 08/27/20 09:27 Amlodipine Besylate 5 Mg Tablet PO 10 mg QAM LIS Administration Aspirin 81 mg 08/26/20 18:00 08/26/20 17:44 Aspirin 81 Mg Chewable Tablet PO 81 mg QPM LIS Administration Atorvastatin Calcium 40 mg 08/26/20 18:00 08/26/20 17:43 Atorvastatin 40 Mg Tablet PO 40 mg QPM LIS Administration Calcitriol 0.25 mcg 08/27/20 09:00 08/27/20 09:29 Calcitriol 0.25 Mcg Capsule PO 0.25 mcg [id number] LIS Administration Calcium Carbonate 500 mg 08/26/20 09:00 08/27/20 09:30 Calcium/Vitamin D 500 Mg Tablet PO 500 mg QAM LIS Administration Dextrose 12.5 gm 08/26/20 08:08 Dextrose 50% 25 Gm/50 Ml Syringe IV PUSH PRN PRN Hypoglycemia Protocol Ferrous Sulfate 324 mg 08/26/20 09:00 08/27/20 09:29
[2020-08-27 17:35] LABS: Glucose Point of Care 278 mg/dl (65-105)
[2020-08-27] MEDS: ASPIRIN 81 MG CHEWABLE TABLET PO (18:25)
[2020-08-27] MEDS: ATORVASTATIN 40 MG TABLET PO (18:25)
[2020-08-27 18:35] LABS: Glucose Point of Care 300 mg/dl (65-105)
[2020-08-27 21:06] LABS: Glucose Point of Care 251 mg/dl (65-105)
[2020-08-27] MEDS: INSULIN GLARGINE (*BKC) 100 UNITS/ML SUB-Q (21:48)
[2020-08-27] MEDS: EPOETIN ALFA-EPBX 20,000 UNITS/ML VIAL 20000 UNITS SUB-Q (21:49)
[2020-08-28] VITALS (11 sets, daily range): BP systolic 130–151; BP diastolic 50–77; PULSE 47–63; RESP 14–20; TEMP 36.4–36.9; O2SAT 96–99
[2020-08-28 04:35] LABS: Glucose Point of Care 114 mg/dl (65-105)
[2020-08-28 04:35] LABS: Glucose Point of Care 60 mg/dl (65-105)
[2020-08-28 06:47] LABS: Hematocrit 21.4 % (37.0-47.0); Mean Corpuscular HGB Conc 32.7 g/dl (32-36); Mean Corpuscular Hemoglobin 31.5 pg (26-34); Mean Corpuscular Volume 96.4 fl (80-100); Mean Platelet Volume 11.7 fl (7.4-10.4); Platelet Count Result 194 k/mm3 (150-375); Red Blood Count 2.22 M/mm3 (4.2-5.4); Red Cell Distribution Width 12.6 % (11.5-14.5); White Blood Count 6.2 K/mm3 (4.5-10.0)
[2020-08-28 06:57] LABS: Albumin Level 3.3 g/dL (3.5-5.1); Anion Gap 7 mmol/L (8-16); Blood Urea Nitrogen 76 mg/dL (7-17); Calcium 8.5 mg/dL (8.4-10.2); Carbon Dioxide 30 mmol/L (22-30); Chloride 96 mmol/L (98-107); Estimated CRCL calculation 16 ml/min; Estimated Glomerular Filt Rate 17; Glucose 129 mg/dL (65-105); Magnesium 1.9 mg/dL (1.6-2.3); Phosphorus 4.5 mg/dL (2.5-4.5); Potassium 4.1 mmol/L (3.4-5.0); Sodium 133 mmol/L (137-145)
[2020-08-28 07:53] LABS: Glucose Point of Care 168 mg/dl (65-105)
--- NOTE | 2020-08-28 08:33 | PM.PNCARD ---
Progress Note: A&P Assessment and Plan (1) Shortness of breath: Code(s): R06.02 - Shortness of breath Status: Acute Assessment and Plan: 69 y/o female with h/o lymphedema, HTN, type I DM, HLD, CKD, chronic anemia, diastolic CHF, Moderate aortic stenosis, , pulmonary hypertension, MIRELA who is seen in cardiac consultation for dyspnea and elevated troponin Shortness of breath is multifactorial with known moderate , CHF (EF 45-50%), MIRELA and now probably worse due to uncontrolled HTN She does not appear overtly volume overloaded on exam and her weight is close to her dry weight She received IV lasix and her creatinine went up to 2.7 from 2.3 Will switch lasix back to PO Agree with increasing hydralazine and adding Imdur. Continue Amlodipine repeat 2D echo to follow up on progression of and reassess LV function She had mild troponin elevation in the setting of HTN urgency and CKD. Had LHC in Nov with mild non obstructive disease. Continue ASA and statin Consider discharge following echo if BP better controlled. Also need monitoring of Hg 7.1 this am. (2) Moderate aortic stenosis: Code(s): I35.0 - Nonrheumatic aortic (valve) stenosis Status: Acute Assessment and Plan: Repeat 2D echo (3) CHF (congestive heart failure): Qualifiers: Heart failure chronicity: acute on chronic Heart failure type: diastolic Qualified Code(s): I50.33 - Acute on chronic diastolic (congestive) heart failure Code(s): I50.9 - Heart failure, unspecified Status: Acute Assessment and Plan: last EF 45-50%. repeat echo (4) CKD (chronic kidney disease): Qualifiers: Chronic kidney disease stage: unspecified stage Qualified Code(s): N18.9 - Chronic kidney disease, unspecified Code(s): N18.9 - Chronic kidney disease, unspecified Status: Acute Assessment and Plan: D/c IV lasix. hold Metolazone today. Subjective Date/time seen: 08/28/20 08:33 SHE FEELS BETTER TODAY, SHORTNESS OF BREAth improved, noted to have low hemoglobin today but no active bleed Objective Data Vital Signs Vital Signs: Vital Signs - 24 hr 08/27/20 09:27 08/27/20 11:20 08/27/20 12:00 Temperature Pulse Rate 60 57 L Respiratory Rate Blood Pressure Pulse Oximetry 97 08/27/20 12:36 08/27/20 13:12 08/27/20 13:13 Temperature Pulse Rate Respiratory Rate Blood Pressure 137/54 L 135/57 L 133/62 Pulse Oximetry 08/27/20 13:14 08/27/20 14:00 08/27/20 16:00 Temperature 36.7 C Pulse Rate 55 L 54 L Respiratory Rate 20 Blood Pressure 129/55 L 139/50 L Pulse Oximetry 98 08/27/20 20:00 08/27/20 22:00 08/27/20 22:02 Temperature 36.8 C Pulse Rate 58 L 97 57 L Respiratory Rate 18 20 Blood Pressure 151/51 H Pulse Oximetry 97 98 08/28/20 00:00 08/28/20 02:02 08/28/20 04:00 Temperature Pulse Rate 47 L 48 L 48 L Respiratory Rate 14 Blood Pressure Pulse Oximetry 98 08/28/20 05:46 08/28/20 08:27 Temperature 36.4 C Pulse Rate 53 L Respiratory Rate 20 Blood Pressure 151/77 H Pulse Oximetry 99 99 Intake/Output Intake/Output: Intake & Output 08/25/20 08/26/20 08/27/20 08/28/20 23:59 23:59 23:59 23:59 Intake Total 1340 2870 150 Output Total 3450 3150 800 Balance -2110 -280 -650 Meds/Results Medications: Active Medications Generic Name Dose Route Start Last Admin Trade Name Kadie PRN Reason Stop Dose Admin Amlodipine Besylate 10 mg 08/26/20 09:00 08/27/20 09:27 Amlodipine Besylate 5 Mg Tablet PO 10 mg QAM LIS Administration Aspirin 81 mg 08/26/20 18:00 08/27/20 18:25 Aspirin 81 Mg Chewable Tablet PO 81 mg QPM LIS Administration Atorvastatin Calcium 40 mg 08/26/20 18:00 08/27/20 18:25 Atorvastatin 40 Mg Tablet PO 40 mg QPM LIS Administration Calcitriol 0.25 mcg 08/27/20 09:00 08/27/20 09:29 Calcitriol 0.25 Mcg Capsule PO 0.25 mcg MoWeFr@0900 [facility] Ad
[2020-08-28] MEDS: FERROUS SULFATE 324 MG TABLET PO ×2 (08:56→17:20)
[2020-08-28] MEDS: amLODIPine BESYLATE 5 MG TABLET 10 MG PO (08:56)
[2020-08-28] MEDS: FUROSEMIDE 20 MG TABLET 60 MG PO ×2 (08:56→17:20)
[2020-08-28] MEDS: ISOSORBIDE MONONITRATE 30 MG TAB.ER.24H PO (08:57)
[2020-08-28] MEDS: hydrALAZINE HCL 50 MG TABLET PO (08:57)
[2020-08-28] MEDS: OLMESARTAN MEDOXOMIL 20 MG TABLET PO (08:58)
[2020-08-28] MEDS: MAGNESIUM OXIDE 200 MG TABLET PO ×2 (08:58→17:20)
[2020-08-28] MEDS: MULTIVITAMINS THERAPEUTIC TAB (*BKC) 1 TABLET PO (08:58)
[2020-08-28] MEDS: FLUTICASONE PROPIONATE 0.05% NA SPR 16 GM BTL (*BKC) 2 SPRAY NASAL (09:00)
[2020-08-28] MEDS: HEPARIN SODIUM 5,000 UNITS/ML VIAL 5000 UNITS SUB-Q (09:01)
[2020-08-28] MEDS: INSULIN ASPART (*BKC) 100 UNITS/ML SUB-Q ×3 (09:48→17:22)
[2020-08-28] MEDS: INSULIN GLARGINE (*BKC) 100 UNITS/ML 8 UNITS SUB-Q (09:49)
[2020-08-28 12:08] LABS: Glucose Point of Care 390 mg/dl (65-105)
--- NOTE | 2020-08-28 15:55 | PM.DS ---
DS: Admitting Diagnosis Admitting Diagnosis Admitting Diagnosis: Short of breath DS: Discharge Diagnosis Discharge Diagnosis (1) CHF (congestive heart failure): Qualifiers: Heart failure chronicity: acute on chronic Heart failure type: diastolic Qualified Code(s): I50.33 - Acute on chronic diastolic (congestive) heart failure Code(s): I50.9 - Heart failure, unspecified Status: Acute Assessment and Plan: BNP 68096. CXR showing pulmonary vascular congestion. Diastolic CHF exacerbation with component right sided failure. Echo showing EF 55-60%, Grade II diastolic dysfunction, moderate-severe (AUGUSTIN 1.0cm2), mild-moderate MR and severe pulm HTN. Treated with diuetics and now no longer SOB. Diuretics were changed to oral. She feels ready for discharge. (2) Elevated troponin: Code(s): R77.8 - Other specified abnormalities of plasma proteins Status: Acute Assessment and Plan: Patient's elevated troponin is likely due to a combination of her stage 4 chronic kidney disease in the setting of uncontrolled hypertension. Patient has not been having any active chest pain. EKG showing Rt BBB. Acute cardiac ischemia is less likely. The patient's troponin profile is flat. [place] to be nonischemic cardiac strain. (3) Aortic valve stenosis: Qualifiers: Cardiac valve disease etiology: etiology unspecified Qualified Code(s): I35.0 - Nonrheumatic aortic (valve) stenosis Code(s): I35.0 - Nonrheumatic aortic (valve) stenosis Status: Chronic Assessment and Plan: Echo showing moderate to severe with AUGUSTIN 1.0cm2 which is about the same as it was in November. Cardiology following (4) Chronic kidney disease, stage IV (severe): Code(s): N18.4 - Chronic kidney disease, stage 4 (severe) Status: Chronic Assessment and Plan: The patient's creatinine 2.7 that improved to 2.3 before climbing to 2.7 where it has stabilized. Suspect still with in the patient's baseline. Nephrology followed along and appreciated their input. (5) Hypertension, uncontrolled: Code(s): I10 - Essential (primary) hypertension Status: Acute Assessment and Plan: BP was reviewed. We continued her home Norvasc, Benicar and metoprolol. Hydralazine was increased from 50 mg BID to TID and BP still elevated so Imdur added. BP better now at 134 but she had feeling of lightheadedness so hydralazine cut back. Symptoms resolved and BP still remained good control. (6) Obstructive sleep apnea on CPAP: Code(s): G47.33 - Obstructive sleep apnea (adult) (pediatric); Z99.89 - Dependence on other enabling machines and devices Status: Inactive Assessment and Plan: Patient has MIRELA and was compliant with her CPAP here. Echo shows severe pulmonary HTN that could be contributing to her lower extremity edema. (7) Diabetes: Qualifiers: Diabetes mellitus type: type 2 Diabetes mellitus halfway insulin use: with halfway use Diabetes mellitus complication status: with other specified complication Qualified Code(s): E11.69 - Type 2 diabetes mellitus with other specified complication; Z79.4 - director long term care (current) use of insulin Code(s): E11.9 - Type 2 diabetes mellitus without complications Status: Acute Assessment and Plan: A1c 6.0 in February. We continued her home Lantus. Glucose monitored with AccuCheks covering with sliding scale. Hypoglycemia protocol was available as needed. Glucose elevated but we were underdosing her at meal times. This was changed and glucose improved. (8) Chronic anemia: Code(s): D64.9 - Anemia, unspecified Status: Chronic Assessment and Plan: Hgb 7.6 on admission. Hgb improved to 8.2 but now 7.0. Her baseline Hgb mostly 7-8 range. She already has follow-up with his hematology scheduled as outpatient. She denies feeling lightheaded or dizzy with standing.
[2020-08-28 17:12] LABS: Glucose Point of Care 244 mg/dl (65-105)
[2020-08-28] MEDS: EPOETIN ALFA-EPBX 10,000 UNITS/ML VIAL 10000 UNITS SUB-Q (17:20)
[2020-08-28] MEDS: ATORVASTATIN 40 MG TABLET PO (17:20)
[2020-08-28] MEDS: ASPIRIN 81 MG CHEWABLE TABLET PO (17:21)
== END 2020-08-28 18:41 | disposition home or self-care (01) ==
LOC: ANHED 08-26 00:48 → ANH3MEDSUR 08-28 16:11 → ANHICU 08-29 13:14
PROVIDERS: Admitting Provider Internal Medicine; Emergency Provider Emergency Medicine; PCP Family Medicine; Visit Provider Internal Medicine
DX: I13.0 Hypertensive heart and chronic kidney disease with heart failure and stage 1 through stage 4 chronic kidney disease, or unspecified chronic kidney disease (principal); I50.33 Acute on chronic diastolic (congestive) heart failure; R77.8 Other specified abnormalities of plasma proteins; R06.02 Shortness of breath; D64.9 Anemia, unspecified; I89.0 Lymphedema, not elsewhere classified; N18.30 Chronic kidney disease, stage 3 unspecified; E11.22 Type 2 diabetes mellitus with diabetic chronic kidney disease; E78.5 Hyperlipidemia, unspecified; I34.1 Nonrheumatic mitral (valve) prolapse; M85.80 Other specified disorders of bone density and structure, unspecified site; G47.33 Obstructive sleep apnea (adult) (pediatric); E11.319 Type 2 diabetes mellitus with unspecified diabetic retinopathy without macular edema; I35.0 Nonrheumatic aortic (valve) stenosis; I34.0 Nonrheumatic mitral (valve) insufficiency; I36.1 Nonrheumatic tricuspid (valve) insufficiency; I65.23 Occlusion and stenosis of bilateral carotid arteries; Z79.82 Long term (current) use of aspirin; Z79.4 Long term (current) use of insulin
CPT/HCPCS: 36415; 36600; 71046; 80048; 80069; 82805; 82948; 83735; 83880; 84484; 85025; 85027; 85610; 85730; 93005; 93306; 96372; 96374; 96375; 96376; 99285; A9270; G0378; J0360; J1644; J1815; J1940; Q5106

== ENCOUNTER 2020-09-08 11:42 | Outpatient (CLI) | payer OTHER, SELFPAY ==
[2020-09-08 12:13] LABS: Anion Gap 10 mmol/L (8-16); Blood Urea Nitrogen 91 mg/dL (7-17); Carbon Dioxide 29 mmol/L (22-30); Chloride 97 mmol/L (98-107); Estimated Glomerular Filt Rate 13; Glucose 110 mg/dL (65-110); Phosphorus 5.2 mg/dL (2.5-4.5); Potassium 5.3 mmol/L (3.4-5.0); Sodium 136 mmol/L (137-145)
== END 2020-09-08 11:43 | disposition home or self-care (01) ==
PROVIDERS: PCP Family Medicine; Visit Provider Internal Medicine
DX: N18.4 Chronic kidney disease, stage 4 (severe) (principal)
CPT/HCPCS: 36415; 80069

== ENCOUNTER 2020-11-21 12:05 | Outpatient (CLI) | payer OTHER, SELFPAY ==
[2020-11-21 13:23] LABS: Creatinine Urine 34.8 mg/dL; Total Protein Urine Random 94 mg/dL
[2020-11-21 13:27] LABS: Potassium 5.1 mmol/L (3.4-5.0)
[2020-11-21 13:50] LABS: Albumin Level 4.7 g/dL (3.5-5.1); Anion Gap 10 mmol/L (8-16); Blood Urea Nitrogen 74 mg/dL (7-17); Calcium 9.4 mg/dL (8.4-10.2); Carbon Dioxide 26 mmol/L (22-30); Chloride 102 mmol/L (98-107); Estimated Glomerular Filt Rate 18; Glucose 135 mg/dL (65-110); Phosphorus 5.2 mg/dL (2.5-4.5); Sodium 138 mmol/L (137-145)
== END 2020-11-21 12:06 | disposition home or self-care (01) ==
PROVIDERS: PCP Family Medicine; Visit Provider Internal Medicine Nephrology
DX: N18.4 Chronic kidney disease, stage 4 (severe) (principal); E11.29 Type 2 diabetes mellitus with other diabetic kidney complication; I12.9 Hypertensive chronic kidney disease with stage 1 through stage 4 chronic kidney disease, or unspecified chronic kidney disease
CPT/HCPCS: 36415; 80069; 82570; 84156

== ENCOUNTER 2020-12-03 11:55 | Outpatient (CLI) | payer OTHER, SELFPAY ==
[2020-12-03 12:37] LABS: Basophils Percent Auto 0.5 % (0.2-1.2); Eosinophils Absolute Auto 0.5 K/mm3 (0-0.3); Hematocrit 28.7 % (37.0-47.0); Hemoglobin 9.2 g/dL (12.0-15.0); Immature Granulocyte Absolute 0.02 K/mm3 (0.00-0.031); Immature Granulocyte Percent A 0.3 % (0-0.5); Lymphocytes Absolute Auto 1.11 K/mm3 (0.9-3.2); Lymphocytes Percent Auto 14.3 % (18.3-44.2); Mean Corpuscular HGB Conc 32.1 g/dl (32-36); Mean Corpuscular Hemoglobin 32.2 pg (26-34); Mean Corpuscular Volume 100.3 fl (80-100); Monocytes Absolute Auto 0.8 K/mm3 (0.1-0.6); Monocytes Percent Auto 10.7 % (2.6-8.5); Neutrophils Absolute Auto 5.3 K/mm3 (1.3-6.7); Neutrophils Percent Auto 68.2 % (45.5-73.1); Platelet Count Result 192 k/mm3 (150-375); Red Blood Count 2.86 M/mm3 (4.2-5.4); White Blood Count 7.8 K/mm3 (4.5-10.0)
== END 2020-12-03 11:56 | disposition home or self-care (01) ==
PROVIDERS: PCP Family Medicine; Visit Provider Internal Medicine
DX: N18.9 Chronic kidney disease, unspecified (principal); D63.1 Anemia in chronic kidney disease
CPT/HCPCS: 36415; 85025

== ENCOUNTER 2021-01-26 21:21 | Inpatient (IN) | payer OTHER, SELFPAY ==
[2021-01-26] VITALS (7 sets, daily range): BP systolic 176–185; BP diastolic 61–62; PULSE 71–80; RESP 24–28; TEMP 36.6; O2SAT 90–98
--- NOTE | ~2021-01-26 | XR_ITS ---
EXAMINATION: XR chest 1V portable DATE: 01/28/2021 08:24 INDICATION: Shortness of breath. TECHNIQUE: A single frontal view of the chest was obtained. COMPARISON: Chest single view 01/26/2021, chest 2 views 08/25/2020 FINDINGS: There are airspace opacities in all lung zones bilaterally with a perihilar predominance. N o pleural effusion or pneumothorax. Cardiomegaly is noted. The central pulmonary arteries are enlarge d, consistent with pulmonary arterial hypertension. IMPRESSION: 1. Improved diffuse lung disease, consistent with pulmonary edema versus pneumonia. 2. Cardiomegaly. Reviewed, dictated and finalized at location A. L [facility] POULTRY IMPRESSION: 1. Improved diffuse lung disease, consistent with pulmonary edema versus pneumo alisson. 2. Cardiomegaly.
--- NOTE | ~2021-01-26 | XR_ITS ---
XR chest 1V portable 01/26/2021 21:44 Indication: Shortness of breath. History of CHF. Procedure: AP portable chest Comparison: 08/25/2020 Findings: Cardiomegaly with pulmonary edema. No significant effusion or pneumothorax. No acute osseou s abnormality. Impression: 1: Cardiomegaly with pulmonary edema. Reviewed, dictated and finalized at location A. [facility] MANAGER Impression: 1: Cardiomegaly with pulmonary edema.
--- NOTE | 2021-01-26 21:31 | ECG_ITS ---
Measurements Intervals [place] Rate: 71 P: 10 [place]: 196 QRS: -17 QRSD: 151 T: 84 QT: 394 QTc: 430 Interpretive Statements SINUS RHYTHM RIGHT BUNDLE BRANCH BLOCK LEFT VENTRICULAR HYPERTROPHY AND ST-T CHANGE MINIMAL Q WAVES- HIGH LATERAL LEADS BASELINE WANDER- V2-V5 ABNORMAL ECG Electronically Signed On 01-27-2021 5:49:30 GUN SYNCHRONIZER by Levon Azevedo D.O.
[2021-01-26] MEDS: FUROSEMIDE INJ 40 MG/4 ML VIAL IV PUSH (21:43)
--- NOTE | 2021-01-26 21:50 | ED.SOB ---
HPI - SOB/Dyspnea General Chief Complaint: Shortness of Breath/Dyspnea Stated Complaint: dyspnea Time Seen by Provider: 01/26/21 21:27 Source: patient and EMS History of Present Illness HPI Narrative: Patient presents with shortness of breath which her symptoms started today family begin impressively worse. Reports she wears 2 L of oxygen at home when EMS arrived she was satting 70% she was placed on a nonrebreather. Patient denies any focal areas of pain such as chest pain or abdominal pain. Reports she just cannot get enough air. She denies any recent fevers, cough, congestion. Reports she normally has edema in her lower extremities left usually worse than right. Related Data Home Medications Medication Instructions Recorded Confirmed amlodipine 10 mg PO QAM 12/29/18 08/26/20 aspirin 81 mg PO QPM 12/29/18 08/26/20 atorvastatin 40 mg PO QPM 12/29/18 08/26/20 metoprolol tartrate 100 mg PO BID 12/29/18 08/26/20 multivitamin 1 cap PO QAM 12/29/18 08/26/20 alendronate 70 mg PO WEEKLY 03/25/19 08/26/20 calcium carbonate-vitamin D3 1 tablet PO DAILY 04/18/19 08/26/20 fluticasone propionate 2 spray INTRANASAL DAILY 04/18/19 08/26/20 insulin aspart U-100 [Novolog 1 sliding scale dose SUBCUT 04/18/19 08/26/20 U-100 Insulin aspart] USEASDIRECTD Lantus U-100 Insulin 8 units SUBCUT QAM 04/23/19 08/26/20 Lantus U-100 Insulin 4 units SUBCUT 11/23/19 08/26/20 hydralazine 50 mg PO BID 11/23/19 08/26/20 olmesartan 20 mg PO DAILY 01/11/20 08/26/20 ferrous sulfate 325 mg PO BID 08/25/20 08/26/20 calcitriol 0.25 mcg PO 3XW 08/26/20 08/26/20 Allergies Allergy/AdvReac Type Severity Reaction Status Date / Time tramadol AdvReac Severe NAUSEA Verified 01/27/21 00:54 codeine AdvReac Intermediate MAKES HER Verified 01/27/21 00:54 FEEL BAD hydrocodone [From [place]] AdvReac Vomiting Verified 01/27/21 00:54 Review of Systems Review of Systems: CONSTITUTIONAL: Denies fever, chills, or sweats. EYES: Denies visual changes, redness, or discharge. ENT: Denies rhinorrhea, congestion, sore throat, or otalgia. CARDIOVASCULAR: Denies chest pain, palpitations, or edema. RESPIRATORY: Reports shortness of breath GASTROINTESTINAL: Denies abdominal pain, nausea, vomiting, or diarrhea. GENITOURINARY: Denies dysuria or hematuria. SKIN: Denies rash or itching. MUSCULOSKELETAL: Denies back pain, joint pain, or myalgia. NEUROLOGIC: Denies headache, numbness, dizziness, or weakness. PSYCHIATRIC: Denies anxiety or depression. All systems reviewed & are unremarkable except as noted in HPI and below PMFSH Past Medical History Medical History (Updated 01/27/21 @ 02:41 by Taryn Perea MD) Aortic valve stenosis moderate to severe noted on cardiac catheterization December 2019 Carotid stenosis (12/2018) bilateral carotid stenosis 50-69% Chronic anemia anemia of chronic disease Chronic kidney disease, stage IV (severe) Colon polyps Colonoscopy in August 2017 showing internal hemorrhoids. Diastolic congestive heart failure due to valvular disease grade 2 diastolic dysfunction, normal EF of 50%, severe left atrial enlargement, mild to moderate mitral valve regurgitation, [id number] tricuspid valve regurgitation Hand fracture History of angiography Right leg Without intervention Hyperlipidemia Hypertension Lymphedema bilateral lower extremities left greater than right Mitral valve prolapse Obstructive sleep apnea on CPAP Osteoporosis Post-menopausal Retinopathy Severe pulmonary hypertension noted on echocardiogram 11/2019 with RVSP of 75 Type 2 diabetes mellitus with insulin therapy Surgical History Surgical History H/O cardiac catheterization (12/2019) mild coronary artery disease, moderate to severe aortic valve stenosis History of bilateral tubal ligation S/P cataract surgery bilateral 10/2019 Status post laser cataract surgery of both eyes Family History Family History (Review
[2021-01-26 21:54] LABS: Alveolar/Arterial O2 Gradient 576.1 mmHg; Base Excess ABG -4.9 mEq/l (+/-2.0); Fractional Inspired Oxygen 100 %; HCO3 ABG 21.5 mEq/l (22.0-26.0); Oxygen Content ABG 13.8 %vol (16.0-22.0); Oxygen Saturation ABG 96.1 % (95.0-100.0); Oxyhemoglobin 95.2 % THb (90.0-100.0); PCO2 ABG 45.6 mmHg (35.0-45.0); PO2 ABG 91.3 mmHg (80.0-100.0); PO2 FiO2 Ratio Arterial Blood 0.91 %; Total Hemoglobin 10.2 g/dL (12.0-18.0)
[2021-01-26 21:55] LABS: Basophils Absolute Auto 0.1 K/mm3 (0.0-0.1); Eosinophils Absolute Auto 0.5 K/mm3 (0-0.3); Hematocrit 32.2 % (37.0-47.0); Hemoglobin 10.1 g/dL (12.0-15.0); Immature Granulocyte Absolute 0.03 K/mm3 (0.00-0.031); Immature Granulocyte Percent A 0.3 % (0-0.5); Lymphocytes Percent Auto 8.5 % (18.3-44.2); Mean Corpuscular HGB Conc 31.4 g/dl (32-36); Mean Corpuscular Hemoglobin 32.9 pg (26-34); Mean Corpuscular Volume 104.9 fl (80-100); Mean Platelet Volume 11.3 fl (7.4-10.4); Monocytes Absolute Auto 0.7 K/mm3 (0.1-0.6); Monocytes Percent Auto 6.7 % (2.6-8.5); Neutrophils Absolute Auto 8.3 K/mm3 (1.3-6.7); Neutrophils Percent Auto 78.5 % (45.5-73.1); Platelet Count Result 190 k/mm3 (150-375); Red Blood Count 3.07 M/mm3 (4.2-5.4); Red Cell Distribution Width 14.9 % (11.5-14.5); White Blood Count 10.6 K/mm3 (4.5-10.0)
[2021-01-26 21:58] LABS: Device NON-REBREATHER MASK; Modified Allen's Test Pass; Site Drawn LEFT RADIAL; pH ABG 7.291 (7.350-7.450)
[2021-01-26 22:06] LABS: Alanine Aminotransferase 23 U/L (4-35); Albumin Level 4.6 g/dL (3.5-5.1); Alkaline Phosphatase 63 U/L (38-126); Anion Gap 8 mmol/L (8-16); Aspartate Amino Transferase 43 U/L (14-36); Bilirubin,Total 0.6 mg/dL (0.2-1.3); Blood Urea Nitrogen 76 mg/dL (7-17); Calcium 8.5 mg/dL (8.4-10.2); Carbon Dioxide 26 mmol/L (22-30); Chloride 103 mmol/L (98-107); Estimated CRCL calculation 17 ml/min; Estimated Glomerular Filt Rate 18; Glucose 173 mg/dL (65-110); Potassium 5.5 mmol/L (3.4-5.0); Sodium 137 mmol/L (137-145)
[2021-01-26 22:18] LABS: NT Pro B Type Natriuretic Pept 19600 pg/mL (5-100); Troponin I < 0.012 ng/mL (0.000-0.034)
[2021-01-26 23:14] LABS: Add Urine Microscopic? YES; Appearance Urine Clear (Clear); Bilirubin Urine Negative (Negative); Blood Urine Negative (Negative); Color Urine Straw (Yellow); Glucose Urine UA Negative (Negative); Ketones Urine Negative (Negative); Leukocyte Esterase Ur Negative LEU/UL (Negative); Mucus Urine Rare /lpf; Nitrate Urine Negative (Negative); Protein Urine 2+ mg/dL (Negative); RBC Urine 0-2 /hpf (0-2); Specific Grav Ur 1.009 (1.001-1.035); Squamous Epithelial Cell Urine Rare /hpf (Few); Urobilinogen Urine Negative mg/dL (<2.0); WBC Urine 0-3 /hpf
[2021-01-26] MEDS: INSULIN GLARGINE (*BKC) 100 UNITS/ML SUB-Q (23:47)
[2021-01-27] VITALS (46 sets, daily range): BP systolic 144–171; BP diastolic 53–69; PULSE 58–91; RESP 16–42; TEMP 35.7–37.8; O2SAT 90–100
--- NOTE | 2021-01-27 00:42 | PM.IMHP ---
H&P: HPI History of Present Illness Date/Time: 01/27/21 00:42 Chief Complaint: Shortness of breath Narrative: This is a 70-year-old female with past medical history significant for mitral valve insufficiency patient is scheduled for mitral valve repair at [facility] at the end of this month, chronic kidney disease, chronic left lower extremity lymphedema, type 2 diabetes mellitus insulin dependent, hypertension, congestive heart failure, osteoporosis, aortic valve stenosis, obstructive sleep apnea on CPAP at nighttime severe pulmonary hypertension.She was just discharged from [facility] roughly 2 weeks ago where she was treated for congestive heart failure exacerbation. Patient was brought today by EMS after she called her daughter the lead is close by and mention that she was having severe shortness of breath according to daughter whom I am obtaining most of the history from that she is aware of no nausea, no vomiting, no diarrhea, no cough ,no sputum production, no fevers, no rigors, no chills, no chest pain. Patient was on BiPAP and could not really give much of the history.Has been admitted for further management evaluation and treatment. Review of Systems Review of Systems: ROS unobtainable: Yes unobtainable due to medical condition (RESPIRATORY DISTRESS ON BIPAP) [facility] Past Medical History Medical History (Updated 01/27/21 @ 02:41 by Taryn Perea MD) Aortic valve stenosis moderate to severe noted on cardiac catheterization December 2019 Carotid stenosis (12/2018) bilateral carotid stenosis 50-69% Chronic anemia anemia of chronic disease Chronic kidney disease, stage IV (severe) Colon polyps Colonoscopy in August 2017 showing internal hemorrhoids. Diastolic congestive heart failure due to valvular disease grade 2 diastolic dysfunction, normal EF of 50%, severe left atrial enlargement, mild to moderate mitral valve regurgitation, [id number] tricuspid valve regurgitation Hand fracture History of angiography Right leg Without intervention Hyperlipidemia Hypertension Lymphedema bilateral lower extremities left greater than right Mitral valve prolapse Obstructive sleep apnea on CPAP Osteoporosis Post-menopausal Retinopathy Severe pulmonary hypertension noted on echocardiogram 11/2019 with RVSP of 75 Type 2 diabetes mellitus with insulin therapy Surgical History Surgical History H/O cardiac catheterization (12/2019) mild coronary artery disease, moderate to severe aortic valve stenosis History of bilateral tubal ligation S/P cataract surgery bilateral 10/2019 Status post laser cataract surgery of both eyes Family History Family History Mother Hypertension DVT (deep venous thrombosis) Vertigo Father Hypertension Cerebrovascular accident Sibling Graves disease Vertigo Sibling Family history of thyroid disease Family history of obesity Mother Family history of cataracts Other Family history of arthritis Family history of hearing loss Social History Social History Social History: Ms. Dwyer is and lives in her own home in [place]. She has 3 daughters. Her daughter's names are Sera Moreno, Ava Marjorie, and Danyell Resendez. She denies alcohol, tobacco, and drug use. 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 Gender identity (if verbalized by the patient)
[2021-01-27] MEDS: INSULIN HUMAN REGULAR (*BKC) 100 UNITS/ML IV PUSH (02:03)
--- NOTE | 2021-01-27 05:48 | ADMGEN ---
This patient, Mine Dwyer, was admitted to IMU Room 202-01. Patient/family oriented to hospital policies and general routines including ID bracelet, bed and alarms, visiting hours, pain management, procedures, bathroom and other care routines, personal items, smoking policy, room service/diet, and visiting hours. Information on how to activate the Rapid Response Team has been discussed. Patient/Family are encouraged to report perceived risks to care and to ask questions if they do not understand what they are told or what they should do.
[2021-01-27 08:51] LABS: Glucose Point of Care 184 mg/dl (65-105)
[2021-01-27] MEDS: INSULIN ASPART (*BKC) 100 UNITS/ML SUB-Q ×2 (09:25→17:41)
[2021-01-27] MEDS: FUROSEMIDE INJ 40 MG/4 ML VIAL IV PUSH (09:26)
--- NOTE | 2021-01-27 09:35 | PM.IMPN ---
Progress Note: A&P Assessment and Plan (1) Acute on chronic diastolic heart failure: Code(s): I50.33 - Acute on chronic diastolic (congestive) heart failure Status: Acute Assessment and Plan: Continue cautious diuresis Patient is known to have moderate aortic stenosis and severe mitral valve regurg and mitral valve prolapse Daily strict I's and O's Admit to IMU Patient is scheduled for valve repair at the end of this month at [facility] Supportive care Cardiology consult. We will follow up additional recs. Echocardiogram from prior stay has been reviewed. (2) Acute and chronic respiratory failure with hypoxia: Code(s): J96.21 - Acute and chronic respiratory failure with hypoxia Status: Acute Assessment and Plan: Likely secondary to acute on chronic congestive heart failure exacerbation Currently on BiPAP, saturating 98%. Mild fever overnight. Chest x-ray has been reviewed.Cardiomegaly with pulmonary edema. COVID PCR pending. Send influenza screen. Continue to monitor (3) Hypertension, uncontrolled: Code(s): I10 - Essential (primary) hypertension Status: Acute Assessment and Plan: Resume home medications. (4) Lymphedema: Code(s): I89.0 - Lymphedema, not elsewhere classified Status: Chronic Assessment and Plan: Unilateral lymphedema. Unchanged. A review regular patient. (5) Moderate aortic stenosis: Code(s): I35.0 - Nonrheumatic aortic (valve) stenosis Status: Acute Assessment and Plan: Continue aspirin and statin (6) Severe pulmonary hypertension: Code(s): I27.20 - Pulmonary hypertension, unspecified Status: Inactive Assessment and Plan: Patient is on supplemental 2 L by nasal cannula at home Here patient is on BiPAP Continue to monitor (7) Diastolic congestive heart failure due to valvular disease: Code(s): I50.30 - Unspecified diastolic (congestive) heart failure; I38 - Endocarditis, valve unspecified Status: Inactive Assessment and Plan: BMP is upwards 19,000 Gentle diuresis. Monitor strict I&Os. (8) Chronic kidney disease, stage IV (severe): Code(s): N18.4 - Chronic kidney disease, stage 4 (severe) Status: Chronic Assessment and Plan: BUN and creatinine at patient's baseline Continue to monitor (9) Insulin dependent diabetes mellitus: Status: Chronic Assessment and Plan: Accu-Cheks AC and HS. Accu check this morning was 184. Continue Lantus Insulin sliding scale as needed Subjective Date/time seen: 01/27/21 09:35 Background.This is a 70-year-old female with past medical history significant for mitral valve insufficiency patient is scheduled for mitral valve repair at [facility] at the end of this month, chronic kidney disease, chronic left lower extremity lymphedema, type 2 diabetes mellitus insulin dependent, hypertension, congestive heart failure, osteoporosis, aortic valve stenosis, obstructive sleep apnea on CPAP at nighttime severe pulmonary hypertension.She was just discharged from [facility] roughly 2 weeks ago where she was treated for congestive heart failure exacerbation. Patient was brought today by EMS after she called her daughter the lead is close by and mention that she was having severe shortness of breath according to daughter whom I am obtaining most of the history from that she is aware of no nausea, no vomiting, no diarrhea, no cough ,no sputum production, no fevers, no rigors, no chills, no chest pain. Patient was on BiPAP and could not really give much of the history.Has been admitted for further management evaluation and treatment. S: Patient examined at the bedside. She is saturating on the BiPAP. She was in mild distress due to shortness of breath. Patient is awake alert and oriented. Review of Systems Review of Systems: ROS unobtainable: Yes unobtainable due to medical condition Exam Narrative: C
--- NOTE | 2021-01-27 11:29 | PM.CNCAR ---
Assessment and Plan Assessment and plan (1) Acute on chronic diastolic heart failure: Code(s): I50.33 - Acute on chronic diastolic (congestive) heart failure Status: Acute Assessment and Plan: 70-year-old female with moderate-severe aortic stenosis, mild CAD based on the cardiac catheterization performed on 01/14/[address] Ritter, hypertension, diabetes mellitus on insulin, CKD, MIRELA. Patient admitted to the hospital with worsening shortness of breath and hypoxemia. NT ProBNP significantly elevated consistent with acute on chronic CHF with preserved ejection fraction. Patient also has hypoxemic respiratory failure. -continue BiPAP, monitor respiratory status. Management as per primary team and pulmonology. Discussed the case with solidworks designer. -diuresis with furosemide. Monitor volume status, electrolytes and renal function closely. Avoid aggressive diuresis. -patient is awaiting transfer to [facility] for further cardiovascular management. -continue to monitor closely in telemetry. (2) Acute and chronic respiratory failure with hypoxia: Code(s): J96.21 - Acute and chronic respiratory failure with hypoxia Status: Acute Assessment and Plan: Management as per pulmonology and primary team. Patient is undergoing COVID-19 testing. History of Present Illness History of Present Illness Consult date/time: 01/27/21 11:29 DATE OF CONSULT: 01/27/2021 REASON FOR CONSULT: CHF REQUESTING PHYSICIAN:Stas Carrillo MD CHIEF COMPLAINT: Shortness of breath HPI: 70-year-old female with moderate-severe aortic stenosis, mild CAD based on the cardiac catheterization performed on 01/14/[address] Ritter, hypertension, diabetes mellitus on insulin, CKD, MIRELA. Patient brought to [facility] on 01/26/2021 with shortness of breath and hypoxemia. Apparently, her O2 sats were found to be 70% at home. At the time of evaluation, patient was on BiPAP. Information was gathered from the patient, from her daughter who was bedside and from extensive review of the chart. According to patient's daughter, patient was recently admitted to [facility], and had extensive workup. She is awaiting surgical valve repair/replacement which according to patient's daughter involves mitral, aortic and possibly tricuspid valve repair/replacement. She was discharged home on home oxygen. Yesterday, patient states that she got a text message from her mom that she had difficulty breathing. EMS was summoned. Patient was found to be hypoxemic and was brought to the [facility]. At the time of evaluation, patient denied chest pain. She has difficulty breathing, and is on BiPAP. She denied any fever or chills. Patient is being tested for COVID-19 infection. EKG on my personal evaluation showed sinus rhythm, right bundle-branch block, left anterior fascicular block, LVH with secondary ST-T abnormality. First set of troponin negative. NT proBNP significantly elevated at 19,600 thousand six hundred. Patient's potential was slightly elevated at 5.5 at admission. Chest x-ray showed cardiomegaly with pulmonary edema. Patient's recent echocardiogram from 08/27/2020 reportedly showed mild LVH, EF 55-60%, moderate left atrial enlargement, [id number] MR, moderate to severe aortic stenosis, maximum velocity 3.8 m/sec, mean gradient 36 mmHg, AUGUSTIN 1 cm2, moderate pulmonary hypertension, RVSP 55-60 mmHg. Reason For Visit: CHF Review of Systems Review of Systems: General: Positive for fatigue Psychological: Positive for anxiety Ophthalmic: negative for loss of vision ENT: Negative for epistaxis, headaches Allergy and immunology: Negative for hives, nasal congestion Hematologic and lymphatic: Negative for overt bleeding problems Endocrine: Negative for hot flashes, palpitations Respiratory: Positive for shortness of breath Cardiovascular: Negative for chest pain Gastrointestinal: Negative for a
[2021-01-27 12:27] LABS: Glucose Point of Care 188 mg/dl (65-105)
--- NOTE | 2021-01-27 12:29 | PM.CNPUL ---
Assessment and Plan Assessment and plan (1) Acute and chronic respiratory failure with hypoxia: Code(s): J96.21 - Acute and chronic respiratory failure with hypoxia Status: Acute Assessment and Plan: patient with a history of aortic stenosis, mitral regurgitation pulmonary hypertension recently discharged from [facility] on 2 L O2 for hypoxic respiratory failure admitted now with shortness of breath, chest x-ray consistent with congestion, creatinine 2.60, BNP 90068 and hypoxic respiratory file ER requiring noninvasive ventilation with an AVAPS mode with a peep of 10 and 100% FiO2. etiology of hypoxic respiratory failure includes congestive heart failure with fluid overload, infection ( bacterial and viral pneumonia including possible COVID). patient is being diuresed per hospitalist and Cardiology teams with Lasix 20 IV b.i.d.. I will send blood cultures and empirically start the patient on vancomycin and Zosyn for possible healthcare associated pneumonia as she was recently discharged from [facility] 2 weeks ago. I will send a COVID RT PCR study and influenza swab. AVAPS rate of 16, tidal volume 500, expiratory pressure 10, minimum inspiratory pressure 11, maximal inspiratory pressure 25 100% FiO2, inspiratory time 1.2 and a rise of 5 patient said these settings were comfortable. I will check a blood gas in 1 hour. I have spoken to the daughter and the patient is a full code including intubation. I have informed the flash oven operator about this patient should she require intubation. Will follow with you. History of Present Illness History of Present Illness Consult date: 01/27/21 Requesting physician: Blanca Clemons MD Reason for consult: hypoxemia Chief complaint: CHF Narrative: 01/27/2021: This is a new Pulmonary consult for hypoxic respiratory failure 70-year-old woman with a history of congestive heart failure, hypertension, hyperlipidemia, diabetes obstructive sleep apnea on CPAP and home 2 L nasal cannula oxygen with aortic stenosis and mitral regurgitation scheduled for mitral valve and aortic valve replacement at [facility] on 02/09/2021 presented to the hospital with shortness of breath over the last 1-2 days. Patient is currently on BiPAP and the history is obtained from the chart and from the patient's daughter in the room. Patient was recently discharged from [facility] 2 weeks ago for congestive heart failure. Patient has chronic lymphedema left lower extremity greater than right and developed shortness of breath and called the family and stated that her oxygen levels were low. EMS was called and she presented to the emergency room with a white blood cell count of 10.6, creatinine of 2[place] [address] and a negative troponin. Her blood gas on 15 L non-rebreather was 7.29/46/91. Patient was placed on CPAP. Oxygen was titrated up to 100% and she has been listed for transfer to [facility]. I was consulted. On entering the room the patient was on CPAP 9 100% with saturations 92 and she was in moderate respiratory distress. I placed the patient on noninvasive ventilation mode with AVAPS rate of 16, tidal volume 500, expiratory pressure 10, minimum inspiratory pressure 11, maximal inspiratory pressure 25 100% FiO2, inspiratory time 1.2 and a rise of 5 patient said these settings were comfortable. Patient has diuresed 1400 mL with IV Lasix and says that she feels about the same. Echo 08/27/20 Summary 1. Complete two-dimensional, color flow and Doppler transthoracic echocardiogram is performed. 2. There is mildly increased left ventricular wall thickness. 3. Left ventricular systolic function is normal, estimated at 55-60%. 4. Left atrial chamber dimension is moderately enlarged. 5. There is moderate to severe aortic stenosis. Aortic valve peak velocity is 3.8 m/s, aortic valve mean gradient is 36 mmHg, a
[2021-01-27] MEDS: amLODIPine BESYLATE 5 MG TABLET 10 MG PO (13:16)
[2021-01-27] MEDS: FLUTICASONE PROPIONATE 0.05% NA SPR 16 GM BTL (*BKC) 2 SPRAY NASAL (13:17)
[2021-01-27] MEDS: OLMESARTAN MEDOXOMIL 20 MG TABLET PO (13:41)
[2021-01-27 13:43] LABS: Influenza Control Positive
[2021-01-27 14:08] LABS: Alveolar/Arterial O2 Gradient 589.2 mmHg; Base Excess ABG 0.7 mEq/l (+/-2.0); Fractional Inspired Oxygen 100 %; HCO3 ABG 25.9 mEq/l (22.0-26.0); Oxygen Content ABG 14.4 %vol (16.0-22.0); Oxygen Saturation ABG 95.7 % (95.0-100.0); Oxyhemoglobin 94.4 % THb (90.0-100.0); PCO2 ABG 43.9 mmHg (35.0-45.0); PO2 ABG 79.9 mmHg (80.0-100.0); Total Hemoglobin 10.8 g/dL (12.0-18.0); pH ABG 7.389 (7.350-7.450)
[2021-01-27 14:09] LABS: Device NON-INVASIVE VENT; Site Drawn RIGHT BRACHIAL
[2021-01-27 14:10] LABS: Non-Invasive Vent Rate 16 /MIN
[2021-01-27 14:12] LABS: Non-Invasive Expiratory Pressure 10 CMH2O
[2021-01-27 16:27] LABS: Glucose Point of Care 218 mg/dl (65-105)
[2021-01-27] MEDS: ATORVASTATIN 40 MG TABLET PO (17:40)
[2021-01-27] MEDS: FERROUS SULFATE 324 MG TABLET PO (17:40)
[2021-01-27] MEDS: MAGNESIUM OXIDE 200 MG TABLET PO (17:41)
[2021-01-27] MEDS: FUROSEMIDE 20 MG TABLET 60 MG PO (17:41)
[2021-01-27] MEDS: ASPIRIN 81 MG CHEWABLE TABLET PO (17:41)
[2021-01-27] MEDS: carvediloL 25 MG TABLET PO (20:20)
[2021-01-27] MEDS: INSULIN GLARGINE (*BKC) 100 UNITS/ML SUB-Q (20:21)
[2021-01-28] VITALS (12 sets, daily range): BP systolic 141–169; BP diastolic 51–52; PULSE 57–76; RESP 17–20; TEMP 36.4–37.4; O2SAT 97–100
--- NOTE | 2021-01-28 | ECHO_ITS ---
Patient Info Name: Mine Dwyer Age: 70 years : 1950 Gender: Female Ht: 62 in Wt: 154 lbs BSA: 1.77 m2 HR: 72 bpm BP: 169 / 51 mmHg Heart Rhythm: Sinus Rhythm Technical Quality: Good Exam Date: 01/28/2021 9:21 AM Exam Location: [facility] Pulmonary Patient Status: Inpatient Admit Date: 01/27/2021 Staff Ordering Physician: Saúl Langston MD Store Product Demonstrator: WENDY Attending Provider: Taryn Perea MD Referring Physician: Kian JOHNSON; Exam Type: CA echo doppler color flow Study Info Indications - LV function, aortic and mitral valve assesment Complete two-dimensional, color flow and Doppler transthoracic echocardiogram is performed. Summary 1. Complete two-dimensional, color flow and Doppler transthoracic echocardiogram is performed. 2. Left ventricular chamber dimension is moderately enlarged. 3. Left ventricular systolic function is normal, estimated at 55-60%. 4. There is mildly increased left ventricular wall thickness. 5. The left ventricular diastolic function is grade II diastolic dysfunction. 6. Left atrial chamber dimension is moderately enlarged. 7. There is severe aortic valve stenosis with a peak velocity of 377 cm/s, mean gradient of 35 mmHg, and aortic valve area of 0.7 cm2. 8. There is mild to moderate aortic valve regurgitation. 9. There is severe aortic valve calcification. 10. There is moderate mitral valve regurgitation. Left Ventricle Left ventricular chamber dimension is moderately enlarged. Left ventricular systolic function is normal, estimated at 55-60%. There is mildly increased left ventricular wall thickness. The left ventricular diastolic function is grade II diastolic dysfunction. Right Ventricle Right ventricular chamber dimension is normal. Right ventricular systolic function is normal. Left Atria Left atrial chamber dimension is moderately enlarged. Right Atria Right atrial chamber dimension is mildly enlarged. Aortic Valve The aortic valve is probable trileaflet. There is severe aortic valve stenosis with a peak velocity of 377 cm/s, mean gradient of 35 mmHg, and aortic valve area of 0.7 cm2. There is mild to moderate aortic valve regurgitation. There is severe aortic valve calcification. Pulmonic Valve The pulmonic valve is normal. There is mild pulmonic regurgitation. Mitral Valve The mitral valve has calcified leaflets. There is moderate mitral valve regurgitation. The mitral valve annulus is severely calcified. Tricuspid Valve The tricuspid valve leaflets are normal. There is mild tricuspid valve regurgitation. Unable to estimate PA systolic pressure due to poor spectral resolution of tricuspid regurgitant jet velocity. Pericardium/Pleural The pericardium appears normal. There is trivial pericardial effusion. Inferior Vena Cava Dilated inferior vena cava with >50% collapse upon inspiration consistent with elevated right atrial pressure, 10 mmHg. Aorta The aortic root size at the sinus of Valsalva is normal. The prox ascending aorta size is normal. There is moderate aortic atherosclerosis. Left Ventricular Outflow Tract Name Value Normal LVOT 2D LVOT Diameter 1.7 cm LVOT Doppler --
[2021-01-28 05:55] LABS: Hematocrit 26.6 % (37.0-47.0); Hemoglobin 8.3 g/dL (12.0-15.0); Mean Corpuscular HGB Conc 31.2 g/dl (32-36); Mean Corpuscular Hemoglobin 32.5 pg (26-34); Mean Corpuscular Volume 104.3 fl (80-100); Mean Platelet Volume 12.4 fl (7.4-10.4); Platelet Count Result 118 k/mm3 (150-375); Red Blood Count 2.55 M/mm3 (4.2-5.4); Red Cell Distribution Width 14.9 % (11.5-14.5); White Blood Count 8.2 K/mm3 (4.5-10.0)
[2021-01-28 08:39] LABS: Glucose Point of Care 73 mg/dl (65-105)
--- NOTE | 2021-01-28 09:21 | PM.IMPN ---
Progress Note: A&P Assessment and Plan (1) Acute on chronic diastolic heart failure: Code(s): I50.33 - Acute on chronic diastolic (congestive) heart failure Status: Acute Assessment and Plan: Continue cautious diuresis Patient is known to have moderate aortic stenosis and severe mitral valve regurg and mitral valve prolapse Daily strict I's and O's Admit to IMU Patient is scheduled for valve repair at the end of this month [facility] Cardiology consult. We will follow up additional recs. Echocardiogram from prior stay has been reviewed. (2) Acute and chronic respiratory failure with hypoxia: Code(s): J96.21 - Acute and chronic respiratory failure with hypoxia Status: Acute Assessment and Plan: Likely secondary to acute on chronic congestive heart failure exacerbation Currently on BiPAP, saturating 98%. Mild fever overnight. Chest x-ray has been reviewed.Cardiomegaly with pulmonary edema. COVID PCR pending. Send influenza screen. Continue to monitor (3) Hypertension, uncontrolled: Code(s): I10 - Essential (primary) hypertension Status: Acute Assessment and Plan: Resume home medications. (4) Lymphedema: Code(s): I89.0 - Lymphedema, not elsewhere classified Status: Chronic Assessment and Plan: Unilateral lymphedema. Unchanged. A review regular patient. (5) Moderate aortic stenosis: Code(s): I35.0 - Nonrheumatic aortic (valve) stenosis Status: Acute Assessment and Plan: Continue aspirin and statin (6) Severe pulmonary hypertension: Code(s): I27.20 - Pulmonary hypertension, unspecified Status: Inactive Assessment and Plan: Patient is on supplemental 2 L by nasal cannula at home Here patient is on BiPAP Continue to monitor (7) Diastolic congestive heart failure due to valvular disease: Code(s): I50.30 - Unspecified diastolic (congestive) heart failure; I38 - Endocarditis, valve unspecified Status: Inactive Assessment and Plan: BMP is upwards 19,000 Gentle diuresis. Monitor strict I&Os. (8) Chronic kidney disease, stage IV (severe): Code(s): N18.4 - Chronic kidney disease, stage 4 (severe) Status: Chronic Assessment and Plan: BUN and creatinine at patient's baseline Continue to monitor (9) Insulin dependent diabetes mellitus: Status: Chronic Assessment and Plan: Accu-Cheks AC and HS. Accu check this morning was 184. Continue Lantus Insulin sliding scale as needed Additional Plan 01/28/21 Subjective Date/time seen: 01/28/21 09:21 Objective Data Vital Signs Vital Signs: Vital Signs - 24 hr 01/27/21 10:00 01/27/21 11:25 01/27/21 12:00 Temperature Pulse Rate 77 74 91 Respiratory Rate 26 H 26 H Blood Pressure Pulse Oximetry 97 97 01/27/21 12:30 01/27/21 14:00 01/27/21 14:15 Temperature 96.3 F L Pulse Rate 72 74 70 Respiratory Rate 33 H 23 H Blood Pressure 164/67 H Pulse Oximetry 91 100 01/27/21 16:00 01/27/21 16:06 01/27/21 16:25 Temperature 98.7 F Pulse Rate 73 72 69 Respiratory Rate 26 H 35 H 24 H Blood Pressure 163/57 H Pulse Oximetry 97 100 96 01/27/21 18:00 01/27/21 20:00 01/27/21 20:20 Temperature 98.1 F Pulse Rate 79 72 68 Respiratory Rate 29 H Blood Pressure 160/58 H Pulse Oximetry 98 01/27/21 20:58 01/27/21 22:00 01/27/21 23:04 Temperature 98 F Pulse Rate 71 72 58 L Respiratory Rate 29 H 22 H Blood Pressure 159/69 H Pulse Oximetry 98 100 01/28/21 00:00 01/28/21 00:02 01/28/21 02:00 Temperature Pulse Rate 57 L 64 72 Respiratory Rate 17 17 Blood Pressure Pulse Oximetry 100 100 01/28/21 04:00 01/28/21 04:04 01/28/21 06:00 Temperature 97.5 F L Pulse Rate 59 L 72 76 Respiratory Rate 19 19 Blood Pressure 169/51 H Pulse Oximetry 100 100 01/28/21 08:15 01/28/21 08:42 Temperature 99.3 F Pulse Rate 70 Respiratory Rate 20 Bl
[2021-01-28 10:12] LABS: Anion Gap 7 mmol/L (8-16); Blood Urea Nitrogen 76 mg/dL (7-17); Calcium 7.8 mg/dL (8.4-10.2); Carbon Dioxide 28 mmol/L (22-30); Chloride 102 mmol/L (98-107); Estimated CRCL calculation 16 ml/min; Estimated Glomerular Filt Rate 17; Glucose 98 mg/dL (65-110); Potassium 4.2 mmol/L (3.4-5.0); Sodium 137 mmol/L (137-145)
[2021-01-28] MEDS: INSULIN GLARGINE (*BKC) 100 UNITS/ML 8 UNITS SUB-Q (10:16)
[2021-01-28] MEDS: INSULIN ASPART (*BKC) 100 UNITS/ML SUB-Q ×2 (10:16→12:42)
[2021-01-28] MEDS: MAGNESIUM OXIDE 200 MG TABLET PO (10:17)
[2021-01-28] MEDS: carvediloL 25 MG TABLET PO (10:17)
[2021-01-28] MEDS: FUROSEMIDE 20 MG TABLET 60 MG PO (10:17)
[2021-01-28] MEDS: amLODIPine BESYLATE 5 MG TABLET 10 MG PO (10:17)
[2021-01-28] MEDS: MULTIVITAMINS THERAPEUTIC TAB (*BKC) 1 TABLET PO (10:18)
[2021-01-28] MEDS: FLUTICASONE PROPIONATE 0.05% NA SPR 16 GM BTL (*BKC) 2 SPRAY NASAL (10:18)
[2021-01-28] MEDS: calcitrioL 0.25 MCG CAPSULE PO (10:18)
[2021-01-28] MEDS: FERROUS SULFATE 324 MG TABLET PO (10:18)
--- NOTE | 2021-01-28 10:28 | PM.PNPUL ---
Progress Note: A&P Assessment and Plan (1) Acute and chronic respiratory failure with hypoxia: Code(s): J96.21 - Acute and chronic respiratory failure with hypoxia Status: Acute Assessment and Plan: 01/27 patient with a history of aortic stenosis, mitral regurgitation (awaiting open heart 02/09/21 at [facility]), pulmonary hypertension recently discharged from [facility] on 2 L O2 for hypoxic respiratory failure admitted now with shortness of breath, chest x-ray consistent with congestion, creatinine 2.60, BNP 87791 and hypoxic respiratory file ER requiring noninvasive ventilation with an AVAPS mode with a peep of 10 and 100% FiO2. etiology of hypoxic respiratory failure includes congestive heart failure with fluid overload, infection (bacterial and viral pneumonia including possible COVID). Patient is being diuresed per hospitalist and Cardiology teams with Lasix 20 IV b.i.d.. I will send blood cultures and empirically start the patient on vancomycin and Zosyn for possible healthcare associated pneumonia as she was recently discharged from [facility] 2 weeks ago. I will send a COVID RT PCR study and influenza swab. AVAPS rate of 16, tidal volume 500, expiratory pressure 10, minimum inspiratory pressure 11, maximal inspiratory pressure 25 100% FiO2, inspiratory time 1.2 and a rise of 5 patient said these settings were comfortable. I will check a blood gas in 1 hour. I have spoken to the daughter and the patient is a full code including intubation. I have informed the smooth stucco resurfacer about this patient should she require intubation. 01/28 Patient wore the noninvasive ventilation overnight with the AVAPS mode and did well. Patient told me she was improved this morning and wanted to come off of the noninvasive ventilator. I placed her on 15 L high-flow nasal cannula and her saturations have remained 100% and she is in no respiratory distress. Her COVID test is pending. Her influenza swab is negative. her chest x-ray demonstrates improved alveolar and interstitial infiltrates. She diuresed 13 15 mL and her creatinine is 2.7. She is afebrile with a white blood cell count of 8.2. Cinically she has responded to diuretics and broad-spectrum antibiotics and will continue her current medications for now. Diuresis as tolerated by her cardiac and renal systems per Cardiology and hospitalist team. I will attempt to obtain a download to determine her CPAP pressures at home. I will wean her oxygen to maintain and saturation 90-94%. She has been listed for transfer to [facility] and per the nurses report we are waiting for a bed. Will follow with you. Subjective Date/time seen: 01/28/21 10:28 Interval history: 01/27/2021: This is a new Pulmonary consult for hypoxic respiratory failure 70-year-old woman with a history of congestive heart failure, hypertension, hyperlipidemia, diabetes obstructive sleep apnea on CPAP and home 2 L nasal cannula oxygen with aortic stenosis and mitral regurgitation scheduled for mitral valve and aortic valve replacement at [facility] on 02/09/2021 presented to the hospital with shortness of breath over the last 1-2 days. Patient is currently on BiPAP and the history is obtained from the chart and from the patient's daughter in the room. Patient was recently discharged from [facility] 2 weeks ago for congestive heart failure. Patient has chronic lymphedema left lower extremity greater than right and developed shortness of breath and called the family and stated that her oxygen levels were low. EMS was called and she presented to the emergency room with a white blood cell count of 10.6, creatinine of 2.6 [place] [address] and a negative troponin. Her blood gas on 15 L non-rebreather was 7.29/46/91. Patient was placed on CPAP. Oxygen was titrated up to 100% and she has been listed for transfer to [facility]. I was consulted. 1
[2021-01-28 12:15] LABS: Glucose Point of Care 83 mg/dl (65-105)
[2021-01-28] MEDS: OLMESARTAN MEDOXOMIL 20 MG TABLET PO (12:38)
--- NOTE | 2021-01-28 13:38 | PM.PNCARD ---
Progress Note: A&P Assessment and Plan (1) Acute on chronic diastolic heart failure: Code(s): I50.33 - Acute on chronic diastolic (congestive) heart failure Status: Acute Assessment and Plan: 70-year-old female with moderate-severe aortic stenosis, mild CAD based on the cardiac catheterization performed on 01/14/[address] Ritter, hypertension, diabetes mellitus on insulin, CKD, MIRELA. Patient admitted to the hospital with worsening shortness of breath and hypoxemia. NT ProBNP significantly elevated consistent with acute on chronic CHF with preserved ejection fraction. Patient also has hypoxemic respiratory failure. -continue BiPAP, monitor respiratory status. Management as per primary team and pulmonology. -Continue judicious diuresis with IV Furosemide. Monitor volume status, electrolytes and renal function closely. Avoid aggressive diuresis. -Awaiting transfer to [facility] for further cardiovascular management as further management of her aortic stenosis in which surgical intervention is planned later this month unavailable at this hospital. Patient prognosis guarded. -Continue telemetry. 2D echocardiogram: Summary 1. Complete two-dimensional, color flow and Doppler transthoracic echocardiogram is performed. 2. Left ventricular chamber dimension is moderately enlarged. 3. Left ventricular systolic function is normal, estimated at 55-60%. 4. There is mildly increased left ventricular wall thickness. 5. The left ventricular diastolic function is grade II diastolic dysfunction. 6. Left atrial chamber dimension is moderately enlarged. 7. There is severe aortic valve stenosis with a peak velocity of 377 cm/s, mean gradient of 35 mmHg, and aortic valve area of 0.7 cm2. 8. There is mild to moderate aortic valve regurgitation. 9. There is severe aortic valve calcification. 10. There is moderate mitral valve regurgitation. (2) Acute and chronic respiratory failure with hypoxia: Code(s): J96.21 - Acute and chronic respiratory failure with hypoxia Status: Acute Assessment and Plan: Management as per pulmonology and primary team. Patient is undergoing COVID-19 testing. (3) Aortic valve stenosis: Qualifiers: Cardiac valve disease etiology: etiology unspecified Qualified Code(s): I35.0 - Nonrheumatic aortic (valve) stenosis Code(s): I35.0 - Nonrheumatic aortic (valve) stenosis Status: Chronic Assessment and Plan: Severe calcific aortic valve stenosis with omyj-[id number]-[id number] aortic regurgitation, at least moderate mitral regurgitation. EF preserved 55-60% (4) Suspected COVID-19 virus infection: Code(s): Z20.822 - Contact with and (suspected) exposure to COVID-19 Status: Acute Assessment and Plan: Patient remains in isolation, COVID PCR pending. (5) Coronary artery disease: Code(s): I25.10 - Atherosclerotic heart disease of elim ira coronary artery without angina pectoris Status: Acute Assessment and Plan: Stable, history of nonobstructive CAD. (6) CKD (chronic kidney disease): Qualifiers: Chronic kidney disease stage: unspecified stage Qualified Code(s): N18.9 - Chronic kidney disease, unspecified Code(s): N18.9 - Chronic kidney disease, unspecified Status: Acute Assessment and Plan: Monitor renal function closely. Stable at this time although significant stage IV disease. Tolerating diuresis thus far. Subjective Date/time seen: Date of service: 01/28/21 13:38 Follow-up for CHF, aortic stenosis Patient feeling much better with IV diuresis. Still requiring significant O2 supplementation. Denies chest pain, palpitations. She says her edema is chronic and unchanged overall. Review of Systems Review of Systems: All systems reviewed & are unremarkable except as noted in HPI and below Constitutional: Constitutional: Reports as per HPI, Reports no additiona
--- NOTE | 2021-01-28 15:00 | PM.TDS ---
Transfer Discharge Sum: Prov Provider Date of admission: 01/27/21 10:34 Primary care physician: Pierce Faith, MD Admitting clinician: Taryn Perea MD Consults: 01/26/21 23:08 Consult to Physician Routine Comment: Consulting Provider: Brent William Reason for consultation: CHF Has provider been notified: Yes 01/27/21 Consult to Physician Routine Comment: called dr. langston with consult information Consulting Provider: Saúl Langston rand butter/MD group to consult: Acute respiratory failure, CHF on BIPAP Reason for consultation: Acute desaturation Has provider been notified: Yes Consult to Physician Routine Comment: spoke with exchange of new consult Consulting Provider: Tracee Mota rand butter/MD group to consult: CARDIOLOGY Reason for consultation: CHF//MVR Has provider been notified: Yes DS: Admitting Diagnosis Discharge Date 01/28/21 Admitting Diagnosis (1) Acute on chronic diastolic heart failure: Code(s): I50.33 - Acute on chronic diastolic (congestive) heart failure Status: Acute Assessment and Plan: Gentle diuresis Patient is known to have moderate aortic stenosis and severe mitral valve regurg and mitral valve prolapse Daily strict I's and O's Admit to IMU Patient is scheduled for valve repair at the end of this month at [facility] Continue to monitor Supportive care Cardiology consult Echocardiogram from prior stay has been reviewed (2) Acute and chronic respiratory failure with hypoxia: Code(s): J96.21 - Acute and chronic respiratory failure with hypoxia Status: Acute Assessment and Plan: Likely secondary to acute on chronic congestive heart failure exacerbation Currently on BiPAP Continue to monitor (3) Hypertension, uncontrolled: Code(s): I10 - Essential (primary) hypertension Status: Acute Assessment and Plan: Restart home meds (4) Lymphedema: Code(s): I89.0 - Lymphedema, not elsewhere classified Status: Chronic Assessment and Plan: Unchanged (5) Moderate aortic stenosis: Code(s): I35.0 - Nonrheumatic aortic (valve) stenosis Status: Acute Assessment and Plan: Continue aspirin and statin (6) Severe pulmonary hypertension: Code(s): I27.20 - Pulmonary hypertension, unspecified Status: Inactive Assessment and Plan: Patient is on supplemental 2 L by nasal cannula at home Here patient is on BiPAP Continue to monitor (7) Diastolic congestive heart failure due to valvular disease: Code(s): I50.30 - Unspecified diastolic (congestive) heart failure; I38 - Endocarditis, valve unspecified Status: Inactive Assessment and Plan: BMP is upwards 19,000 Gentle diuresis (8) Chronic kidney disease, stage IV (severe): Code(s): N18.4 - Chronic kidney disease, stage 4 (severe) Status: Chronic Assessment and Plan: BUN and creatinine at patient's baseline Continue to monitor (9) Insulin dependent diabetes mellitus: Status: Chronic Assessment and Plan: Accu-Cheks AC and HS Continue Lantus Insulin sliding scale as needed DS: Discharge Diagnosis Discharge Diagnosis (1) Acute and chronic respiratory failure with hypoxia: Code(s): J96.21 - Acute and chronic respiratory failure with hypoxia Status: Acute (2) Acute on chronic diastolic heart failure: Code(s): I50.33 - Acute on chronic diastolic (congestive) heart failure Status: Acute (3) CHF (congestive heart failure): Qualifiers: Heart failure chronicity: acute on chronic Heart failure type: unspecified Qualified Code(s): I50.9 - Heart failure, unspecified Code(s): I50.9 - Heart failure, unspecified Status: Acute (4) Hypoxia: Code(s): R09.02 - Hypoxemia Status: Acute (5) Tachypnea: Code(s): R06.82 - Tachypnea, not elsewhere classified Status: Acute (6) DVT prophylaxis:
[2021-01-30 11:53] LABS: SARS-CoV-2 RNA PCR Positive (Negative)
== END 2021-01-28 13:35 | disposition short-term general hospital (02) | DRG 177 ==
LOC: ANHED 23:17 → ANHIMU 01-27 05:26
PROVIDERS: Internal Medicine; Internal Medicine Pulmonary Disease; Admitting Provider Internal Medicine; Emergency Provider Emergency Medicine; PCP Family Medicine; Visit Provider Hospitalist
DX: U07.1 COVID-19 (principal); J96.21 Acute and chronic respiratory failure with hypoxia; E11.10 Type 2 diabetes mellitus with ketoacidosis without coma; I50.33 Acute on chronic diastolic (congestive) heart failure; J18.9 Pneumonia, unspecified organism; J12.82 Pneumonia due to coronavirus disease 2019; I13.0 Hypertensive heart and chronic kidney disease with heart failure and stage 1 through stage 4 chronic kidney disease, or unspecified chronic kidney disease; N18.4 Chronic kidney disease, stage 4 (severe); I27.20 Pulmonary hypertension, unspecified; Y95 Nosocomial condition; E11.22 Type 2 diabetes mellitus with diabetic chronic kidney disease; D63.8 Anemia in other chronic diseases classified elsewhere; Z99.81 Dependence on supplemental oxygen; I08.0 Rheumatic disorders of both mitral and aortic valves; I25.10 Atherosclerotic heart disease of native coronary artery without angina pectoris; I89.0 Lymphedema, not elsewhere classified; E78.5 Hyperlipidemia, unspecified; G47.33 Obstructive sleep apnea (adult) (pediatric); M81.0 Age-related osteoporosis without current pathological fracture; Z79.4 Long term (current) use of insulin; Z79.82 Long term (current) use of aspirin; Z79.899 Other long term (current) drug therapy
CPT/HCPCS: 36415; 36600; 71045; 80048; 80053; 81001; 82805; 82948; 83880; 84484; 85025; 85027; 87040; 87804; 93005; 93306; 96365; 96375; 96376; 99285; A9270; C9803; G0378; J0131; J1815; J1940; J2543; J3370; U0003; U0005

== ENCOUNTER 2021-03-20 08:48 | Inpatient (IN) | payer OTHER, SELFPAY ==
[2021-03-20] VITALS (26 sets, daily range): BP systolic 81–132; BP diastolic 35–78; PULSE 39–105; RESP 12–23; TEMP 32.2–37.2; O2SAT 90–100
--- NOTE | ~2021-03-20 | XR_ITS ---
EXAMINATION: XR chest 1V portable INDICATION: Shortness of breath TECHNIQUE: Portable AP chest at 1024 hours COMPARISON: 03/27/2021 FINDINGS: Airspace opacities persist throughout all lung zones with slight improvement. No definite p leural effusion or pneumothorax are identified. The cardiomediastinal silhouette is normal. IMPRESSION: 1. Diffuse lung disease with slight improvement, consistent with pneumonia and/or pulmonary edema. Reviewed, dictated and finalized at location A. ION BAGGAGE AGENT IMPRESSION: 1. Diffuse lung disease with slight improvement, consistent with pneumonia and/ or pulmonary edema.
--- NOTE | ~2021-03-20 | XR_ITS ---
EXAMINATION: XR chest 1V portable INDICATION: Shortness of breath TECHNIQUE: Portable AP chest at 0739 hours COMPARISON: 04/01/2021 FINDINGS: Interstitial and airspace opacities persist throughout the lungs with slight interval impro vement. Cardiomegaly is noted. There is no pleural effusion or pneumothorax. IMPRESSION: 1. Diffuse lung disease with interval improvement, consistent with pneumonia and/or pulmonary edema. 2. Cardiomegaly. Reviewed, dictated and finalized at location A. TING WORKER IMPRESSION: 1. Diffuse lung disease with interval improvement, consistent with pneumonia an d/or pulmonary edema. 2. Cardiomegaly.
--- NOTE | ~2021-03-20 | US_ITS ---
EXAMINATION: US venous doppler [facility] EXAM DATE: 03/26/2021 12:40 INDICATION: Hypoxia. TECHNIQUE: Multiple grayscale, color flow and Doppler images of the lower extremity deep venous syste ms bilaterally were obtained and reviewed. Comparison is made to prior examination from 02/16/2020. FINDINGS: Right side: The right common femoral, femoral and profunda veins demonstrate normal color flow, respi ratory variation, augmentation and compressibility. Compressibility, color flow confirmed within the right popliteal, posterior tibial, peroneal, and greater saphenous veins. Left side: The left common femoral, femoral and profunda veins demonstrate normal color flow, respira tory variation, augmentation and compressibility. Compressibility, color flow confirmed within the l eft popliteal, posterior tibial, peroneal, and greater saphenous veins. IMPRESSION: 1. No lower extremity deep venous thrombosis bilaterally. Reviewed, dictated and finalized at location B. OBIOLOGY LAB ANALYST
--- NOTE | ~2021-03-20 | XR_ITS ---
EXAMINATION: XR chest 1V portable DATE: 03/25/2021 07:56 INDICATION: Hypoxia TECHNIQUE: frontal view of the chest was obtained. COMPARISON: Chest radiograph dated 03/24/2021 FINDINGS: There is been some improvement in the aeration of the lungs with some increasing lucency distributed throughout the extensive airspace opacities throughout both lungs relatively sparing the left apex. L fiona volumes remain mildly decreased. No pneumothorax or definitive pleural effusion. Cardiomegaly. A few old bilateral rib fractures. IMPRESSION: 1. Slight decrease in the diffuse bilateral lung disease consistent with improvement in pneumonia and /or pulmonary edema. 2. Cardiomegaly. Reviewed, dictated and finalized at location A. C AUTOGRAPHER IMPRESSION: 1. Slight decrease in the diffuse bilateral lung disease consistent with improv ement in pneumonia and/or pulmonary edema. 2. Cardiomegaly.
--- NOTE | ~2021-03-20 | XR_ITS ---
EXAMINATION: XR chest 1V portable DATE: 03/20/2021 10:42 INDICATION: Hypoxia. TECHNIQUE: A single frontal view of the chest was obtained. COMPARISON: Chest single view 01/28/2021, chest 2 views 08/25/2020 FINDINGS: There is mild elevation of right hemidiaphragm. There are airspace opacities and coarse int erstitial opacities throughout the lungs bilaterally. No pleural effusion or pneumothorax. Cardiomega ly is noted. The central pulmonary arteries are enlarged, consistent with pulmonary arterial hyperten andi. IMPRESSION: 1. Worsened diffuse lung disease, consistent with pneumonia versus pulmonary edema. 2. Cardiomegaly. Reviewed, dictated and finalized at location E. OZOOLOGIST IMPRESSION: 1. Worsened diffuse lung disease, consistent with pneumonia versus pulmonary ed john. 2. Cardiomegaly.
--- NOTE | ~2021-03-20 | XR_ITS ---
XR chest 2V 04/06/2021 09:19 Indication: Chest pain Procedure: 2 view chest Comparison: 04/02/2021 Findings: Extensive bilateral airspace disease, compatible with pneumonia. Cardiomegaly. There is ath erosclerosis and ectasia of the aorta. There is a healed right humeral neck fracture. No acute osseou s abnormality. Impression: 1: Persistent extensive bilateral airspace disease, consistent with pneumonia. 2: Cardiomegaly. Reviewed, dictated and finalized at location B. BROKER Impression: 1: Persistent extensive bilateral airspace disease, consistent with pneumonia. 2: Cardiomegaly.
--- NOTE | ~2021-03-20 | XR_ITS ---
EXAMINATION: XR chest 1V portable DATE: 04/10/2021 10:37 INDICATION: Pneumonia. TECHNIQUE: A single frontal view of the chest was obtained. COMPARISON: Chest 2 views 04/06/2021, chest CT 03/25/21 FINDINGS: There are coarse interstitial opacities and airspace opacities throughout the lungs bilater ally. There is mild elevation of right hemidiaphragm. No pleural effusion or pneumothorax. Cardiomega ly is noted. IMPRESSION: 1. Stable diffuse lung disease, consistent with pneumonia and/or pulmonary edema. 2. Cardiomegaly. Reviewed, dictated and finalized at location A. ER SPOTTER IMPRESSION: 1. Stable diffuse lung disease, consistent with pneumonia and/or pulmonary demario a. 2. Cardiomegaly.
--- NOTE | ~2021-03-20 | XR_ITS ---
EXAMINATION: XR chest 1V portable DATE: 03/27/2021 06:44 INDICATION: Pneumonia TECHNIQUE: frontal view of the chest was obtained. COMPARISON: Chest radiograph dated 03/25/2021 FINDINGS: No significant change chronic for differences in technique in extensive interstitial and airspace opa cities throughout both lungs relatively sparing the left apex. No pleural effusion or pneumothorax. C ardiomegaly. Old bilateral rib fractures. IMPRESSION: 1. Unchanged diffuse bilateral lung disease consistent with pneumonia and/or pulmonary edema. 2. Cardiomegaly. Reviewed, dictated and finalized at location A. ISSIONED POLICE OFFICER IMPRESSION: 1. Unchanged diffuse bilateral lung disease consistent with pneumonia and/or pu lmonary edema. 2. Cardiomegaly.
--- NOTE | ~2021-03-20 | CT_ITS ---
EXAMINATION:CT diagnostic chest wo con DATE: 03/25/2021 16:13 INDICATION: Worsening respiratory failure. TECHNIQUE: Computed tomography (CT) of the chest was performed without intravenous contrast. Automate d exposure control and iterative reconstruction technique were employed. The dose-length product (DLP ) was 207.85 mGy-cm. COMPARISON: None. FINDINGS: There are airspace opacities, groundglass opacities, and septal thickening in a patchy and confluent distribution involving all lung segments. There are small pleural effusions. Cardiomegaly i s noted. There are coronary artery calcifications. No pericardial effusion. There is mild mediastinal lymphadenopathy. There is mild thoracic spondylosis. There is severe cervical spondylosis. IMPRESSION: 1. Diffuse lung disease, consistent with pulmonary edema versus pneumonia. 2. Small pleural effusions. 3. Cardiomegaly. 4. Mild mediastinal lymphadenopathy, likely reactive. Reviewed, dictated and finalized at location E. SILVERMAN
--- NOTE | ~2021-03-20 | XR_ITS ---
EXAMINATION: XR chest 1V portable DATE: 03/23/2021 09:05 INDICATION: Shortness of breath and wheezing TECHNIQUE: frontal view of the chest was obtained. COMPARISON: Chest radiograph dated 03/20/2021 FINDINGS: Coarse airspace opacities throughout both lungs relatively sparing the left apex. No pleural effusion or pneumothorax. Cardiomegaly. Several old right rib fractures. IMPRESSION: 1. No significant change in diffuse bilateral lung disease consistent with pneumonia versus pulmonary edema. 2. Cardiomegaly. Reviewed, dictated and finalized at location A. [employer] COORDINATOR IMPRESSION: 1. No significant change in diffuse bilateral lung disease consistent with pneu monia versus pulmonary edema. 2. Cardiomegaly.
--- NOTE | ~2021-03-20 | XR_ITS ---
XR chest 1V portable DATE: 03/24/2021 10:31 INDICATION: Increasing oxygen needs, shortness of breath TECHNIQUE: Portable AP chest on March 24, 2021 at 1027 hours COMPARISON: March 23, 2021 portable AP chest at 0842 hours FINDINGS: Severe patchy consolidating infiltrates are noted, increased in severity since March 23, 2021. No pleural effusion or pneumothorax is evident. Diffuse osteopenia. IMPRESSION: Severe bilateral patchy consolidating pulmonary infiltrates, increased since March 23, 2021 Reviewed, dictated and finalized at location A. ACT LENS LATHE OPERATOR IMPRESSION: Severe bilateral patchy consolidating pulmonary infiltrates, increa sed since March 23, 2021
--- NOTE | ~2021-03-20 | XR_ITS ---
EXAMINATION: XR chest 1V portable DATE: 04/01/2021 06:00 INDICATION: Pulmonary infiltrates. TECHNIQUE: A single frontal view of the chest was obtained. COMPARISON: Chest single view 03/30/2021, chest CT 03/25/2021 FINDINGS: There are airspace and interstitial opacities throughout the lungs bilaterally. No pleural effusion or pneumothorax. Cardiomegaly is noted. IMPRESSION: 1. Stable diffuse lung disease, consistent with pneumonia versus pulmonary edema. 2. Cardiomegaly. Reviewed, dictated and finalized at location A. FIELD IMPRESSION: 1. Stable diffuse lung disease, consistent with pneumonia versus pulmonary demario a. 2. Cardiomegaly.
--- NOTE | 2021-03-20 08:59 | ECG_ITS ---
Measurements Intervals [place] Rate: 47 P: MO: 0 QRS: 7 QRSD: 169 T: 75 QT: 502 QTc: 447 Interpretive Statements JUNCTIONAL RHYTHM RIGHT BUNDLE BRANCH BLOCK BASELINE ARTIFACT- II, III, V6 ABNORMAL ECG Electronically Signed On 03-20-2021 9:43:25 PLAY BACK OPERATOR by Levon Azevedo D.O.
[2021-03-20 09:02] LABS: Glucose Point of Care > 500 mg/dl (65-105)
[2021-03-20] MEDS: SODIUM CHLORIDE 0.9% IV 1,000 ML 999 ML IV CONT ×2 (09:09→11:27)
--- NOTE | 2021-03-20 09:09 | PC.NURSE ---
pt. received 1L via ems travel pta.
[2021-03-20 09:15] LABS: Base Excess ABG -14.1 mEq/l (+/-2.0); Carboxyhemoglobin 0.3 % THb (0-2.0); Fractional Inspired Oxygen 40 %; HCO3 ABG 12.6 mEq/l (22.0-26.0); Methemoglobin ABG 0.2 %THb (0-1.5); Oxygen Content ABG 12.2 %vol (16.0-22.0); PCO2 ABG 32.5 mmHg (35.0-45.0); PO2 ABG 58.8 mmHg (80.0-100.0); PO2 FiO2 Ratio Arterial Blood 1.47 %
[2021-03-20 09:18] LABS: Oxygen Saturation ABG 85.1 % (95.0-100.0); pH ABG 7.208 (7.350-7.450)
[2021-03-20 09:19] LABS: Device NASAL CANNULA; Modified Allen's Test Pass; Oxyhemoglobin 86.5 % THb (90.0-100.0); Site Drawn RIGHT RADIAL
[2021-03-20 09:50] LABS: Basophils Absolute Auto 0.1 K/mm3 (0.0-0.1); Basophils Percent Auto 0.9 % (0.2-1.2); Eosinophils Percent Auto 0.5 % (0-4.4); Hematocrit 26.5 % (37.0-47.0); Hemoglobin 8.1 g/dL (12.0-15.0); Immature Granulocyte Absolute 0.03 K/mm3 (0.00-0.031); Immature Granulocyte Percent A 0.5 % (0-0.5); Lymphocytes Percent Auto 10.6 % (18.3-44.2); Mean Corpuscular HGB Conc 30.6 g/dl (32-36); Mean Corpuscular Hemoglobin 32.8 pg (26-34); Mean Corpuscular Volume 107.3 fl (80-100); Mean Platelet Volume 11.6 fl (7.4-10.4); Monocytes Absolute Auto 0.3 K/mm3 (0.1-0.6); Neutrophils Absolute Auto 5.4 K/mm3 (1.3-6.7); Neutrophils Percent Auto 82.5 % (45.5-73.1); Platelet Count Result 244 k/mm3 (150-375); Red Blood Count 2.47 M/mm3 (4.2-5.4); Red Cell Distribution Width 16.1 % (11.5-14.5); White Blood Count 6.6 K/mm3 (4.5-10.0)
[2021-03-20 09:53] LABS: Glucose Point of Care 480 mg/dl (65-105)
[2021-03-20 09:55] LABS: Partial Thromboplastin Time 25.7 SECONDS (22.3-36.8)
[2021-03-20 10:00] LABS: Prothrombin Time 12.7 Seconds (11.1-14.7)
--- NOTE | 2021-03-20 10:00 | PC.NURSE ---
pt. dehydrated no urine in catheter for sample. aware. RN can hold off until pt. produces enough urine.
[2021-03-20 10:08] LABS: Alanine Aminotransferase 21 U/L (4-35); Albumin Level 3.2 g/dL (3.5-5.1); Alkaline Phosphatase 69 U/L (38-126); Anion Gap 18 mmol/L (8-16); Aspartate Amino Transferase 27 U/L (14-36); Bilirubin,Total 0.5 mg/dL (0.2-1.3); Blood Urea Nitrogen 96 mg/dL (7-17); Calcium 7.6 mg/dL (8.4-10.2); Carbon Dioxide 12 mmol/L (22-30); Chloride 100 mmol/L (98-107); Estimated CRCL calculation 15 ml/min; Estimated Glomerular Filt Rate 17; Glucose 513 mg/dL (65-110); Potassium 5.6 mmol/L (3.4-5.0); Sodium 130 mmol/L (137-145)
[2021-03-20 10:19] LABS: Lactic Acid Reflex 2.5 mmol/L (0.7-2.1)
--- NOTE | 2021-03-20 10:21 | ED.AMS ---
HPI - Altered Mental Status General Chief Complaint: Altered Mental Status Stated Complaint: Altered mental status, low bp, high blood sugar Time Seen by Provider: 03/20/21 08:59 Source: patient History of Present Illness HPI narrative: Patient presents with altered mental status. Patient is in [facility] facility she has a recent admission for DKA she also has a history of chronic kidney disease mitral valve stenosis with regurg as well as tricuspid regurg, chronic kidney disease 4, diabetes, CHF. Behavior patient was found unresponsive hypotensive and bradycardic EMS was called. Patient was found to have elevated blood sugars she was given insulin by the rehab facility. On EMS arrival she continued to be hyperglycemic she was initiated on fluids. EMS gave atropine for the patient's bradycardia. On arrival to the ER EMS report patient was become more responsive is talking and alert. Patient reports she does not feel well and her ears are ringing she denies any focal areas of pain. Related Data Home Medications Medication Instructions Recorded Confirmed atorvastatin 40 mg PO QPM 12/29/18 03/20/21 insulin aspart U-100 [Novolog 1 sliding scale dose SUBCUT 04/18/19 03/20/21 U-100 Insulin aspart] USEASDIRECTD olmesartan 40 mg PO DAILY 01/11/20 03/20/21 carvedilol 25 mg PO BID 01/27/21 03/20/21 calcitriol 0.25 mcg PO 3XW 03/16/21 03/20/21 isosorbide mononitrate 30 mg PO DAILY 03/16/21 03/20/21 Ca-D3-mag hy-wayt-rpp-brown-bor 1 tablet PO DAILY 03/17/21 03/20/21 [Calcium 600-D3 Plus (mag-zinc)] amlodipine 10 mg PO DAILY 03/17/21 03/20/21 aspirin [Aspir-81] 81 mg PO DAILY 03/17/21 03/20/21 ferrous sulfate 325 mg PO DAILY 03/17/21 03/20/21 fluticasone propionate 2 spray INTRANASAL DAILY 03/17/21 03/20/21 ascorbic acid (vitamin C) 1 g PO DAILY 03/20/21 03/20/21 furosemide 40 mg PO BID 03/20/21 03/20/21 insulin glargine See Rx Instructions .ROUTE .COMPLEX 03/20/21 03/20/21 magnesium oxide 200 mg PO BID 03/20/21 03/20/21 sz-vz-vctc-FA-Ca carb-vit K 1 tablet PO DAILY 03/20/21 03/20/21 [Women's Multivitamin] peg 400-propylene glycol (PF) 1 drp EACH EYE 4-6XD PRN 03/20/21 03/20/21 [Systane (PF)] ropinirole 0.25 mg PO HS 03/20/21 03/20/21 tizanidine 2 mg PO Q6H PRN 03/20/21 03/20/21 Allergies Allergy/AdvReac Type Severity Reaction Status Date / Time tramadol AdvReac Severe NAUSEA Verified 03/20/21 09:56 codeine AdvReac Intermediate MAKES HER Verified 03/20/21 09:56 FEEL BAD hydrocodone [From [place]] AdvReac Vomiting Verified 03/20/21 09:56 Review of Systems Review of Systems: CONSTITUTIONAL: Denies fever, chills, or sweats. EYES: Denies visual changes, redness, or discharge. ENT: Denies rhinorrhea, congestion, sore throat, or otalgia. CARDIOVASCULAR: Denies chest pain, palpitations, or edema. RESPIRATORY: Denies cough or dyspnea. GASTROINTESTINAL: Denies abdominal pain, nausea, vomiting, or diarrhea. GENITOURINARY: Denies dysuria or hematuria. SKIN: Denies rash or itching. MUSCULOSKELETAL: Denies back pain, joint pain, or myalgia. NEUROLOGIC: Denies headache, numbness, dizziness, or weakness. PSYCHIATRIC: Denies anxiety or depression. All systems reviewed & are unremarkable except as noted in HPI and below PMFSH Past Medical History Medical History Aortic valve stenosis moderate to severe noted on cardiac catheterization December 2019 Carotid stenosis (12/2018) bilateral carotid stenosis 50-69% Chronic anemia anemia of chronic disease Chronic kidney disease, stage IV (severe) Colon polyps Colonoscopy in August 2017 showing internal hemorrhoids. Diastolic congestive heart failure due to valvular disease grade 2 diastolic dysfunction, normal EF of 50%, severe left atrial enlargement, mild to moderate mitral valve regurgitation, [id number]-[id number] tricuspid valve regurgitation Hand fracture History of angiography Right leg Without intervention Hyperlipidemia Hyperte
[2021-03-20 10:28] LABS: SARS-CoV-2 RNA PCR Negative
[2021-03-20 10:56] LABS: Magnesium 2.8 mg/dL (1.6-2.3); Phosphorus 6.4 mg/dL (2.5-4.5)
[2021-03-20 10:57] LABS: Hemoglobin A1C 6.6 % (<5.7)
[2021-03-20 11:03] LABS: NT Pro B Type Natriuretic Pept 19000 pg/mL (5-100)
[2021-03-20 11:15] LABS: Beta HCG Quantitative < 2.39 mIU/ML
[2021-03-20 11:16] LABS: Procalcitonin 0.3 ng/mL
[2021-03-20] MEDS: INSULIN HUMAN REGULAR (*BKC) 100 UNITS in SODIUM CHLORIDE 0.9% IV 99 ML 7.18 UNITS IV CONT (11:31)
[2021-03-20 11:36] LABS: Glucose Point of Care 419 mg/dl (65-105)
--- NOTE | 2021-03-20 11:40 | PC.NURSE ---
MD shane starting insulin drip at calculated drip 7.2 units/hr
--- NOTE | 2021-03-20 12:38 | WPDCNINT ---
Assessment and Plan Assessment and plan (1) DKA (diabetic ketoacidosis): Code(s): E11.10 - Type 2 diabetes mellitus with ketoacidosis without coma Status: Acute Assessment and Plan: patient presented with elevated blood sugars, dehydration hypovolemia and acidosis she was given IV fluid bolus and started on IV insulin drip continue Q1H glucose monitoring Serial labs Replace electrolytes as needed Will transition to SC insulin once AG is closed cautious IV fluids due to consider of congestive heart failure (2) Hypotension: Qualifiers: Hypotension type: unspecified hypotension type Qualified Code(s): I95.9 - Hypotension, unspecified Code(s): I95.9 - Hypotension, unspecified Status: Acute Assessment and Plan: patient was hypotensive on presentation likely secondary to hypovolemia and dehydration blood pressure has improved after IV fluid bolus conservative IV fluids will be continued for now due to history of CHF (3) Bradycardia: Code(s): R00.1 - Bradycardia, unspecified Status: Acute Assessment and Plan: improved (4) Acute and chronic respiratory failure with hypoxia: Code(s): J96.21 - Acute and chronic respiratory failure with hypoxia Status: Acute Assessment and Plan: patient is on oxygen at home and is currently on 2 L oxygen chest x-ray shows congestive heart failure (5) CHF (congestive heart failure): Qualifiers: Heart failure chronicity: acute on chronic Heart failure type: unspecified Qualified Code(s): I50.9 - Heart failure, unspecified Code(s): I50.9 - Heart failure, unspecified Status: Acute Assessment and Plan: patient does have congestive heart failure but her oxygen requirement is at baseline hold her diuretics and continue cautious IV fluids patient has aortic stenosis mitral regurgitation and mitral stenosis and tricuspid regurgitation - no intervention for those at this time (6) DVT prophylaxis: Code(s): Z29.9 - Encounter for prophylactic measures, unspecified Status: Acute Assessment and Plan: Lovenox (7) Chronic kidney disease, stage IV (severe): Code(s): N18.4 - Chronic kidney disease, stage 4 (severe) Status: Chronic Assessment and Plan: monitor urine output electrolytes and creatinine (8) Hyperkalemia: Code(s): E87.5 - Hyperkalemia Status: Acute Assessment and Plan: secondary to DKA and CKD patient given IV fluid bolus and IV insulin will see what the next BMP shows as patient has serial BMPs ordered (9) Lactic acidosis: Code(s): E87.2 - Acidosis Status: Acute Assessment and Plan: slightly elevated lactic acid level likely secondary dehydration hypovolemia patient's chest x-ray shows pulmonary edema UA was negative her procalcitonin is normal blood culture sent hold antibiotics at this time (10) Coronary artery disease: Code(s): I25.10 - Atherosclerotic heart disease of [place] coronary artery without angina pectoris Status: Acute Assessment and Plan: continue aspirin and statin but hold beta-kennedy, ARB and Imdur at this point due to his hypotension Additional Plan Total Critical Care Time - 35 minutes Due to a high probability of clinically significant, life threatening deterioration, the patient required my highest level of preparedness to intervene emergently and I personally spent this critical care time directly and personally managing the patient. This critical care time included obtaining a history; examining the patient; pulse oximetry; ordering and review of studies; arranging urgent treatment with development of a management plan; evaluation of patient's response to treatment; frequent reassessment; and discussions with other providers. It was exclusive of separately billable procedures and treating other patients and teaching time. Please see Asses
[2021-03-20 12:45] LABS: Glucose Point of Care 352 mg/dl (65-105)
[2021-03-20 13:03] LABS: Reflex Lactic Acid Yes or No Add Lactic
[2021-03-20] MEDS: SODIUM CHLORIDE 0.9% IV 1,000 ML 75 ML IV CONT (13:25)
[2021-03-20] MEDS: SODIUM CHLORIDE 0.9% IV 1,000 ML 150 ML IV CONT (13:27)
--- NOTE | 2021-03-20 13:27 | PCDIET ---
Dietitian consult for DKA admission. Patient currently NPO on insulin drip. following.
[2021-03-20 14:14] LABS: Add Urine Microscopic? YES; Appearance Urine Cloudy (Clear); Bacteria Urine Trace /hpf; Bilirubin Urine Negative (Negative); Color Urine Amber (Yellow); Glucose Urine UA 1+ mg/dL (Negative); Hyaline Casts Urine 50+ /lpf; Ketones Urine Trace mg/dL (Negative); Leukocyte Esterase Ur Negative LEU/UL (Negative); Mucus Urine Rare /lpf; Nitrate Urine Negative (Negative); Protein Urine 2+ mg/dL (Negative); Specific Grav Ur 1.017 (1.001-1.035); Squamous Epithelial Cell Urine Few /hpf (Few); Urobilinogen Urine Negative mg/dL (<2.0); WBC Urine 16-20 /hpf
[2021-03-20 14:15] LABS: Lactic Acid 1.6 mmol/L (0.7-2.1)
[2021-03-20 14:16] LABS: Anion Gap 7 mmol/L (8-16); Blood Urea Nitrogen 105 mg/dL (7-17); Blood Urine Negative (Negative); Calcium 7.6 mg/dL (8.4-10.2); Carbon Dioxide 21 mmol/L (22-30); Chloride 103 mmol/L (98-107); Estimated CRCL calculation 16 ml/min; Estimated Glomerular Filt Rate 18; Glucose 296 mg/dL (65-110); Sodium 131 mmol/L (137-145)
[2021-03-20 14:43] LABS: Amphetamine Screen Urine Negative (Negative); Barbiturate Screen Urine Negative (Negative); Benzodiazepines Screen Urine Negative (Negative); Cannabinoid Screen Urine Negative (Negative); Cocaine Screen Urine Negative (Negative); Methadone Screen Urine Negative (Negative); Opiate Screen Urine Negative (Negative); Phencyclidine Screen Urine Negative (Negative)
[2021-03-20] MEDS: SODIUM BICARBONATE TAB 650 MG TABLET 1300 MG PO (16:43)
[2021-03-20 16:46] LABS: Glucose Point of Care 325 mg/dl (65-105)
[2021-03-20 16:46] LABS: Glucose Point of Care 197 mg/dl (65-105)
[2021-03-20 16:46] LABS: Glucose Point of Care 322 mg/dl (65-105)
[2021-03-20 16:47] LABS: Glucose Point of Care 221 mg/dl (65-105)
--- NOTE | 2021-03-20 17:12 | ADMGEN ---
This patient, Mine Dwyer, was admitted to Intensive Care Unit-3. Patient/family oriented to hospital policies and general routines including ID bracelet, bed and alarms, visiting hours, pain management, procedures, bathroom and other care routines, personal items, smoking policy, room service/diet, and visiting hours. Information on how to activate the Rapid Response Team has been discussed. Patient/Family are encouraged to report perceived risks to care and to ask questions if they do not understand what they are told or what they should do. Arrived to ICU bed 3
[2021-03-20 17:54] LABS: Glucose Point of Care 102 mg/dl (65-105)
--- NOTE | 2021-03-20 18:45 | PM.IMHP ---
H&P: HPI History of Present Illness Date/Time: 03/20/21 18:45 Chief Complaint: Altered mental status. Narrative: This is a 70-year-old female with insulin-dependent diabetes, hypertension, chronic kidney disease, diastolic congestive heart failure, peripheral vascular disease, valvular heart disease, and other comorbidities who presented to the emergency department today via EMS from [facility] for evaluation of altered mental status. She was admitted to rehab on 03/12/2021 after a lengthy hospitalization in which she was initially admitted for acute heart failure exacerbation related to severe valvular heart disease. There was consideration for aortic and mitral valve replacement/repair though she was found to have COVID-19 pneumonia and those plans obviously changed. It is now my understanding that she is considered high risk and that there are no current plans for surgical repair. In any regard, she has been participating in rehab though it is noted that her blood sugars have been fluctuating and her basal insulin was increased over the last couple of days. She admits that she fatigues easily but she has otherwise been feeling okay. This morning she remembers waking up however does not really remember much thereafter. According to her electronic medical records, her glucose was over 500 this morning and she was confused and thus she was sent to the hospital for evaluation. on arrival to the emergency department she was hypotensive, hypothermic, and in diabetic ketoacidosis. She has since been admitted to the ICU and she is currently on an insulin drip. At the time my evaluation she is alert and oriented x4 but again does not really remember what happened this morning. She has no specific complaints aside from generalized weakness and perhaps a bit of nausea. She denies fever, chills, sweats, chest pain, shortness of breath, vomiting, diarrhea, and dysuria. She also denies sinus congestion, sore throat, and cough. Review of Systems Review of Systems: Twelve systems were reviewed and are negative except for as per HPI. [facility] Past Medical History Medical History Aortic valve stenosis moderate to severe noted on cardiac catheterization December 2019 Carotid stenosis (12/2018) bilateral carotid stenosis 50-69% Chronic anemia anemia of chronic disease Chronic kidney disease, stage IV (severe) Colon polyps Colonoscopy in August 2017 showing internal hemorrhoids. Diastolic congestive heart failure due to valvular disease grade 2 diastolic dysfunction, normal EF of 50%, severe left atrial enlargement, mild to moderate mitral valve regurgitation, [id number] tricuspid valve regurgitation Hand fracture History of angiography Right leg Without intervention Hyperlipidemia Hypertension Lymphedema bilateral lower extremities left greater than right Mitral valve prolapse Obstructive sleep apnea on CPAP Osteoporosis Post-menopausal Retinopathy Severe pulmonary hypertension noted on echocardiogram 11/2019 with RVSP of 75 Type 2 diabetes mellitus with insulin therapy Surgical History Surgical History H/O cardiac catheterization (12/2019) mild coronary artery disease, moderate to severe aortic valve stenosis History of bilateral tubal ligation S/P cataract surgery bilateral 10/2019 Status post laser cataract surgery of both eyes Family History Family History Mother Hypertension DVT (deep venous thrombosis) Vertigo Father Hypertension Cerebrovascular accident Sibling Graves disease Vertigo Sibling Family history of thyroid disease Family history of obesity Mother Family history of cataracts Other Family history of arthritis Family history of hearing loss Social History Social History (Updated 03/20/21 @ 23:52 by Rachel Louie PA-C) Soc
[2021-03-20 18:53] LABS: Glucose Point of Care 57 mg/dl (65-105)
[2021-03-20 19:00] LABS: Anion Gap 5 mmol/L (8-16); Blood Urea Nitrogen 106 mg/dL (7-17); Calcium 7.7 mg/dL (8.4-10.2); Carbon Dioxide 23 mmol/L (22-30); Chloride 105 mmol/L (98-107); Estimated CRCL calculation 15 ml/min; Estimated Glomerular Filt Rate 17; Glucose 88 mg/dL (65-110); Potassium 4.6 mmol/L (3.4-5.0); Sodium 133 mmol/L (137-145)
[2021-03-20 19:25] LABS: Glucose Point of Care 71 mg/dl (65-105)
[2021-03-20 20:20] LABS: Glucose Point of Care 73 mg/dl (65-105)
[2021-03-20 21:25] LABS: Glucose Point of Care 59 mg/dl (65-105)
[2021-03-20 22:02] LABS: Glucose Point of Care 76 mg/dl (65-105)
[2021-03-20] MEDS: DEXTROSE 5%/0.9% SOD CHL 1,000 ML 40 ML IV CONT (22:31)
[2021-03-20 23:58] LABS: Glucose Point of Care 57 mg/dl (65-105)
[2021-03-21] VITALS (14 sets, daily range): BP systolic 100–139; BP diastolic 45–75; PULSE 64–72; RESP 13–23; TEMP 36.4–37.4; O2SAT 94–97
[2021-03-21 00:50] LABS: Glucose Point of Care 81 mg/dl (65-105)
[2021-03-21 02:29] LABS: Glucose Point of Care 81 mg/dl (65-105)
[2021-03-21 04:29] LABS: Hematocrit 23.9 % (37.0-47.0); Hemoglobin 7.6 g/dL (12.0-15.0); Mean Corpuscular HGB Conc 31.8 g/dl (32-36); Mean Corpuscular Hemoglobin 33.3 pg (26-34); Mean Corpuscular Volume 104.8 fl (80-100); Mean Platelet Volume 10.1 fl (7.4-10.4); Platelet Count Result 246 k/mm3 (150-375); Red Blood Count 2.28 M/mm3 (4.2-5.4); Red Cell Distribution Width 16.6 % (11.5-14.5); White Blood Count 11.7 K/mm3 (4.5-10.0)
[2021-03-21 04:47] LABS: Alanine Aminotransferase 24 U/L (4-35); Alkaline Phosphatase 67 U/L (38-126); Anion Gap 5 mmol/L (8-16); Aspartate Amino Transferase 35 U/L (14-36); Bilirubin,Total 0.4 mg/dL (0.2-1.3); Blood Urea Nitrogen 100 mg/dL (7-17); Calcium 7.4 mg/dL (8.4-10.2); Carbon Dioxide 22 mmol/L (22-30); Chloride 106 mmol/L (98-107); Estimated CRCL calculation 14 ml/min; Estimated Glomerular Filt Rate 16; Glucose 73 mg/dL (65-110); Magnesium 2.6 mg/dL (1.6-2.3); Potassium 4.8 mmol/L (3.4-5.0); Sodium 133 mmol/L (137-145)
[2021-03-21 04:53] LABS: Transferrin 107 mg/dL (206-381)
[2021-03-21 04:54] LABS: Immature Reticulocyte Fraction 15.2 % (3.0-15.9); Reticulocyte Hemoglobin Conten 37.5 pg (28.2-35.7); Reticulocyte Percent 3.65 % (0.7-4.3); Reticulocytes Absolute 0.08 B/L (32.2-175.7)
[2021-03-21 05:08] LABS: Iron 101 ug/dL (37-170)
[2021-03-21 05:18] LABS: Percent Iron Saturation 52 % (20-50)
[2021-03-21 05:59] LABS: Folic Acid > 20.0 ng/mL (2.76->20); Vitamin B12 > 1000.0 pg/mL (239-931)
[2021-03-21 06:15] LABS: Glucose Point of Care 74 mg/dl (65-105)
[2021-03-21 08:12] LABS: Glucose Point of Care 71 mg/dl (65-105)
[2021-03-21] MEDS: SODIUM BICARBONATE TAB 650 MG TABLET 1300 MG PO ×2 (08:20→17:51)
[2021-03-21] MEDS: ENOXAPARIN 30 MG/0.3 ML SYRINGE SUB-Q (08:21)
[2021-03-21] MEDS: ATORVASTATIN 40 MG TABLET PO (08:21)
[2021-03-21] MEDS: ASPIRIN 81 MG ENTERIC TABLET PO (08:21)
[2021-03-21 10:06] LABS: Glucose Point of Care 173 mg/dl (65-105)
--- NOTE | 2021-03-21 10:19 | WPDINTPN ---
Progress Note: A&P Assessment and Plan (1) DKA (diabetic ketoacidosis): Code(s): E11.10 - Type 2 diabetes mellitus with ketoacidosis without coma Status: Acute Assessment and Plan: patient presented with elevated blood sugars, dehydration hypovolemia and acidosis she was given IV fluid bolus and started on IV insulin drip anion gap closed and patient has been transitioned to subcutaneous insulin cautious IV fluids due to consider of congestive heart failure (2) Hypoglycemia: Code(s): E16.2 - Hypoglycemia, unspecified Status: Acute Assessment and Plan: patient eventually became hypoglycemic and insulin drip was stopped she was started on D5 fluids patient ate this morning and now her sugars are elevated. dextrose discontinue continue to monitor sugars for now (3) Hypotension: Qualifiers: Hypotension type: unspecified hypotension type Qualified Code(s): I95.9 - Hypotension, unspecified Code(s): I95.9 - Hypotension, unspecified Status: Acute Assessment and Plan: patient was hypotensive on presentation likely secondary to hypovolemia and dehydration blood pressure has improved after IV fluid bolus off of IV fluids at this time (4) Bradycardia: Code(s): R00.1 - Bradycardia, unspecified Status: Acute Assessment and Plan: improved (5) Acute and chronic respiratory failure with hypoxia: Code(s): J96.21 - Acute and chronic respiratory failure with hypoxia Status: Acute Assessment and Plan: patient is on oxygen at home and is currently on 2 L oxygen chest x-ray shows congestive heart failure hold further IV fluids (6) CHF (congestive heart failure): Qualifiers: Heart failure chronicity: acute on chronic Heart failure type: unspecified Qualified Code(s): I50.9 - Heart failure, unspecified Code(s): I50.9 - Heart failure, unspecified Status: Acute Assessment and Plan: patient does have congestive heart failure but her oxygen requirement is at baseline hold her diuretics for another 24 hours long as her oxygen need does not go up patient has aortic stenosis mitral regurgitation and mitral stenosis and tricuspid regurgitation - no intervention for those at this time (7) DVT prophylaxis: Code(s): Z29.9 - Encounter for prophylactic measures, unspecified Status: Acute Assessment and Plan: Lovenox (8) Chronic kidney disease, stage IV (severe): Code(s): N18.4 - Chronic kidney disease, stage 4 (severe) Status: Chronic Assessment and Plan: consult nephrology as I suspect patient is close to needing dialysis her urine output is poor and uremia is getting worse her acid-base status and electrolytes acceptable at this time (9) Hyperkalemia: Code(s): E87.5 - Hyperkalemia Status: Acute Assessment and Plan: secondary to DKA and CKD patient given IV fluid bolus and IV insulin resolved (10) Lactic acidosis: Code(s): E87.2 - Acidosis Status: Acute Assessment and Plan: slightly elevated lactic acid level likely secondary dehydration hypovolemia and has resolved patient's chest x-ray shows pulmonary edema UA was negative her procalcitonin is normal blood and urine culture sent and pending at this time hold antibiotics at this time (11) Coronary artery disease: Code(s): I25.10 - Atherosclerotic heart disease of [place] coronary artery without angina pectoris Status: Acute Assessment and Plan: continue aspirin and statin but hold beta-kennedy, ARB and Imdur at this point due to his hypotension Additional Plan consult PT OT IS up in chair Subjective Date/time seen: 03/21/21 10:19 Review of Systems Review of Systems: All systems reviewed & are unremarkable except as noted in HPI and below ( HPI) Exam Narrative: General: Pt is alert awake and in NAD Lungs/
--- NOTE | 2021-03-21 11:59 | P.CONNP_ITS ---
Assessment and Plan Assessment and plan (1) GISELLE (acute kidney injury): Code(s): N17.9 - Acute kidney failure, unspecified Status: Acute Assessment and Plan: * likely due to a combination of volume depletion and hypotension * creatine has fluctuated to extremes in the last few years * cannot deny the possibility of kidney disease progression as well * concern is elevated BUN and decreased urine output * follow trend of repeat labs and UOP (2) Chronic kidney disease, stage IV (severe): Code(s): N18.4 - Chronic kidney disease, stage 4 (severe) Status: Chronic Assessment and Plan: * baseline creatine averages around 2.0 - 2.7mg/dl * thought to be secondary to her HTN, DM, cardiac/vascular disease and need for diuretics to maintain her volume status * noted fluctuations in kidney function due to fluid status and diuretics (3) Hyperkalemia: Code(s): E87.5 - Hyperkalemia Status: Acute Assessment and Plan: * resolved * due to GISELLE and ARB therapy * follow trend (4) DKA (diabetic ketoacidosis): Code(s): E11.10 - Type 2 diabetes mellitus with ketoacidosis without coma Status: Acute Assessment and Plan: * resolving with current therapy * off insuling gtt and IVFs * switching to SQ insulin (5) Hypotension: Qualifiers: Hypotension type: unspecified hypotension type Qualified Code(s): I95.9 - Hypotension, unspecified Code(s): I95.9 - Hypotension, unspecified Status: Acute Assessment and Plan: * due to relative volume depletion * BP doing better * follow trend of hemodynamics (6) Acute and chronic respiratory failure with hypoxia: Code(s): J96.21 - Acute and chronic respiratory failure with hypoxia Status: Acute Assessment and Plan: * on baseline oxygen requirements * however, CXR with CHF findings * diuretics on hold but may need to restart (7) CHF (congestive heart failure): Qualifiers: Heart failure chronicity: acute on chronic Heart failure type: unspecified Qualified Code(s): I50.9 - Heart failure, unspecified Code(s): I50.9 - Heart failure, unspecified Status: Chronic Assessment and Plan: * follows with Dr. Ritter * despite valvular heart disease, deemed to high risk for surgical intervention * may need to restart diuretic therapy Long and extensive discussion (> 20 minutes) with patient and her daughter Jody (by phone) regarding her kidney disease and acute worsening of it at this time. Given the multitude of issues that led to her admssion (hypothermia, hypotension, DKA, AMS...etc), not surprising her kidney function has been fluctuating and will have to see her kidney function does in the next 24 - 48 hours. They both appeared to voice understanding. Will continue to follow. History of Present Illness Reason for Consult Consult date: 03/21/21 Reason for consult: acute renal failure (on chronic kidney disease) Chief Complaint Chief complaint: DKA History of Present Illness Narrative: The patient is a 70-year-old female with extensive past medical history as outlined below who presented to [facility] Emergency room yesterday via EMS from [facility] for further evaluation of altered mental status. The patient herself is not fully aware of all the events that occurred that led to her admission so a lot of the history was supplemented by review of the electronic medical record as well as discussion with the physician/ nurses involv
--- NOTE | 2021-03-21 11:59 | PM.CNNEP ---
Assessment and Plan Assessment and plan (1) GISELLE (acute kidney injury): Code(s): N17.9 - Acute kidney failure, unspecified Status: Acute Assessment and Plan: likely due to a combination of volume depletion and hypotension creatine has fluctuated to extremes in the last few years cannot deny the possibility of kidney disease progression as well concern is elevated BUN and decreased urine output follow trend of repeat labs and UOP (2) Chronic kidney disease, stage IV (severe): Code(s): N18.4 - Chronic kidney disease, stage 4 (severe) Status: Chronic Assessment and Plan: baseline creatine averages around 2.0 - 2.7mg/dl thought to be secondary to her HTN, DM, cardiac/vascular disease and need for diuretics to maintain her volume status noted fluctuations in kidney function due to fluid status and diuretics (3) Hyperkalemia: Code(s): E87.5 - Hyperkalemia Status: Acute Assessment and Plan: resolved due to GISELLE and ARB therapy follow trend (4) DKA (diabetic ketoacidosis): Code(s): E11.10 - Type 2 diabetes mellitus with ketoacidosis without coma Status: Acute Assessment and Plan: resolving with current therapy off insuling gtt and IVFs switching to SQ insulin (5) Hypotension: Qualifiers: Hypotension type: unspecified hypotension type Qualified Code(s): I95.9 - Hypotension, unspecified Code(s): I95.9 - Hypotension, unspecified Status: Acute Assessment and Plan: due to relative volume depletion BP doing better follow trend of hemodynamics (6) Acute and chronic respiratory failure with hypoxia: Code(s): J96.21 - Acute and chronic respiratory failure with hypoxia Status: Acute Assessment and Plan: on baseline oxygen requirements however, CXR with CHF findings diuretics on hold but may need to restart (7) CHF (congestive heart failure): Qualifiers: Heart failure chronicity: acute on chronic Heart failure type: unspecified Qualified Code(s): I50.9 - Heart failure, unspecified Code(s): I50.9 - Heart failure, unspecified Status: Chronic Assessment and Plan: follows with Dr. Ritter despite valvular heart disease, deemed to high risk for surgical intervention may need to restart diuretic therapy Long and extensive discussion (> 20 minutes) with patient and her daughter Jody (by phone) regarding her kidney disease and acute worsening of it at this time. Given the multitude of issues that led to her admssion (hypothermia, hypotension, DKA, AMS...etc), not surprising her kidney function has been fluctuating and will have to see her kidney function does in the next 24 - 48 hours. They both appeared to voice understanding. Will continue to follow. History of Present Illness Reason for Consult Consult date: 03/21/21 Reason for consult: acute renal failure (on chronic kidney disease) Chief Complaint Chief complaint: DKA History of Present Illness Narrative: The patient is a 70-year-old female with extensive past medical history as outlined below who presented to [facility] Emergency room yesterday via EMS from [facility] for further evaluation of altered mental status. The patient herself is not fully aware of all the events that occurred that led to her admission so a lot of the history was supplemented by review of the electronic medical record as well as discussion with the physician/ nurses involved in her care. The patient was just recently admitted to the [facility] in late February 2021 after a fairly lengthy hospitalization for acute congestive heart failure secondary to her severe valvular heart disease. During that hospitalization, there was a consideration for aortic and mitral valve replacement /repair but at that time, she was found of be COVID-19 positive complicated b
[2021-03-21 12:36] LABS: Glucose Point of Care 285 mg/dl (65-105)
[2021-03-21] MEDS: INSULIN GLARGINE (*BKC) 100 UNITS/ML 20 UNITS SUB-Q (13:23)
[2021-03-21] MEDS: INSULIN ASPART (*BKC) 100 UNITS/ML SUB-Q ×2 (13:23→17:52)
--- NOTE | 2021-03-21 14:54 | PC.NURSE ---
Patient transferred to [facility] via bed with 4L nasal cannula attached, chart given to nurse at [id number]
--- NOTE | 2021-03-21 16:05 | PM.IMPN ---
Progress Note: A&P Assessment and Plan (1) DKA (diabetic ketoacidosis): Code(s): E11.10 - Type 2 diabetes mellitus with ketoacidosis without coma Status: Acute Assessment and Plan: patient presented with elevated blood sugars, dehydration hypovolemia and metabolic acidosis she was given IV fluid bolus and started on IV insulin drip anion gap closed and patient has been transitioned to subcutaneous insulin cautious IV fluids due to consider of congestive heart failure A1c came back at 6.6 (2) Hypoglycemia: Code(s): E16.2 - Hypoglycemia, unspecified Status: Acute Assessment and Plan: patient eventually became hypoglycemic and insulin drip was stopped she was started on D5 fluids patient ate this morning and now her sugars are elevated. dextrose discontinue continue to monitor sugars for now (3) Hypotension: Qualifiers: Hypotension type: unspecified hypotension type Qualified Code(s): I95.9 - Hypotension, unspecified Code(s): I95.9 - Hypotension, unspecified Status: Acute Assessment and Plan: patient was hypotensive on presentation likely secondary to hypovolemia and dehydration blood pressure has improved after IV fluid bolus off of IV fluids at this time blood pressure improved (4) Bradycardia: Code(s): R00.1 - Bradycardia, unspecified Status: Acute Assessment and Plan: improved (5) Acute and chronic respiratory failure with hypoxia: Code(s): J96.21 - Acute and chronic respiratory failure with hypoxia Status: Acute Assessment and Plan: patient is on oxygen at home and is currently on 2 L oxygen chest x-ray shows congestive heart failure hold further IV fluids (6) CHF (congestive heart failure): Qualifiers: Heart failure chronicity: acute on chronic Heart failure type: unspecified Qualified Code(s): I50.9 - Heart failure, unspecified Code(s): I50.9 - Heart failure, unspecified Status: Chronic Assessment and Plan: patient does have congestive heart failure but her oxygen requirement is at baseline hold her diuretics for another 24 hours long as her oxygen need does not go up patient has aortic stenosis mitral regurgitation and mitral stenosis and tricuspid regurgitation - no intervention for those at this time Chest x-ray reviewed with worsening diffuse lung disease consistent with pneumonia versus pulmonary edema BNP in 19,000 (7) DVT prophylaxis: Code(s): Z29.9 - Encounter for prophylactic measures, unspecified Status: Acute Assessment and Plan: Lovenox (8) Chronic kidney disease, stage IV (severe): Code(s): N18.4 - Chronic kidney disease, stage 4 (severe) Status: Chronic Assessment and Plan: consult nephrology as I suspect patient is close to needing dialysis her urine output is poor and uremia is getting worse her acid-base status and electrolytes acceptable at this time (9) Hyperkalemia: Code(s): E87.5 - Hyperkalemia Status: Acute Assessment and Plan: secondary to DKA and CKD patient given IV fluid bolus and IV insulin resolved (10) Lactic acidosis: Code(s): E87.2 - Acidosis Status: Acute Assessment and Plan: slightly elevated lactic acid level likely secondary dehydration hypovolemia and has resolved patient's chest x-ray shows pulmonary edema UA was negative her procalcitonin is normal blood and urine culture sent and pending at this time hold antibiotics at this time (11) Coronary artery disease: Code(s): I25.10 - Atherosclerotic heart disease of [place] coronary artery without angina pectoris Status: Acute Assessment and Plan: continue aspirin and statin but hold beta-kennedy, ARB and Imdur at this point due to his hypotension Additional Plan consult PT OT IS up in chair Moderate to severe mitral regurgitation moderate to sever
[2021-03-21 16:34] LABS: Glucose Point of Care 227 mg/dl (65-105)
[2021-03-21 20:20] LABS: Glucose Point of Care 156 mg/dl (65-105)
[2021-03-21] MEDS: ACETAMINOPHEN 325 MG TABLET 650 MG PO (22:32)
[2021-03-22] VITALS (20 sets, daily range): BP systolic 132–151; BP diastolic 46–56; PULSE 65–80; RESP 14–20; TEMP 33.9–37; O2SAT 94–98
[2021-03-22 02:08] LABS: Glucose Point of Care 101 mg/dl (65-105)
[2021-03-22 03:47] LABS: Glucose Point of Care 20 mg/dl (65-105)
[2021-03-22] MEDS: DEXTROSE 50% 25 GM/50 ML SYRINGE IV PUSH (03:52)
[2021-03-22] MEDS: GLUCOSE ORAL GEL 15 GM OF GLUCSE IN 37.5 GM TUBE PO (03:52)
[2021-03-22 04:24] LABS: Glucose Point of Care 127 mg/dl (65-105)
[2021-03-22] MEDS: HYDROCORTISONE SODIUM SUCCINATE 100 MG/2 ML VIAL IV PUSH (05:44)
[2021-03-22 07:19] LABS: Alanine Aminotransferase 23 U/L (4-35); Albumin Level 3.2 g/dL (3.5-5.1); Alkaline Phosphatase 75 U/L (38-126); Anion Gap 6 mmol/L (8-16); Aspartate Amino Transferase 30 U/L (14-36); Bilirubin,Total 0.5 mg/dL (0.2-1.3); Blood Urea Nitrogen 88 mg/dL (7-17); Calcium 7.5 mg/dL (8.4-10.2); Carbon Dioxide 23 mmol/L (22-30); Chloride 105 mmol/L (98-107); Estimated CRCL calculation 15 ml/min; Estimated Glomerular Filt Rate 17; Glucose 154 mg/dL (65-110); Magnesium 2.6 mg/dL (1.6-2.3); Potassium 4.6 mmol/L (3.4-5.0); Sodium 134 mmol/L (137-145)
[2021-03-22 08:05] LABS: Hematocrit 27.2 % (37.0-47.0); Hemoglobin 8.6 g/dL (12.0-15.0); Mean Corpuscular HGB Conc 31.6 g/dl (32-36); Mean Corpuscular Hemoglobin 32.8 pg (26-34); Mean Corpuscular Volume 103.8 fl (80-100); Mean Platelet Volume 10.3 fl (7.4-10.4); Platelet Count Result 265 k/mm3 (150-375); Red Blood Count 2.62 M/mm3 (4.2-5.4); Red Cell Distribution Width 16.3 % (11.5-14.5); White Blood Count 8.7 K/mm3 (4.5-10.0)
[2021-03-22 08:07] LABS: Glucose Point of Care 143 mg/dl (65-105)
[2021-03-22] MEDS: ASPIRIN 81 MG ENTERIC TABLET PO (09:53)
[2021-03-22] MEDS: ATORVASTATIN 40 MG TABLET PO (09:53)
[2021-03-22] MEDS: SODIUM BICARBONATE TAB 650 MG TABLET 1300 MG PO (09:53)
[2021-03-22] MEDS: ENOXAPARIN 30 MG/0.3 ML SYRINGE SUB-Q (09:53)
[2021-03-22 11:33] LABS: Glucose Point of Care 220 mg/dl (65-105)
--- NOTE | 2021-03-22 12:50 | P.PNNP_ITS ---
Progress Note: A&P Assessment and Plan (1) GISELLE (acute kidney injury): Code(s): N17.9 - Acute kidney failure, unspecified Status: Acute Assessment and Plan: * likely due to a combination of volume depletion and hypotension * creatine has fluctuated to extremes in the last few years * cannot deny the possibility of kidney disease progression as well * BUN and creatinine a bit better associated with better urine output * follow trend of repeat labs and UOP (2) Chronic kidney disease, stage IV (severe): Code(s): N18.4 - Chronic kidney disease, stage 4 (severe) Status: Chronic Assessment and Plan: * baseline creatine averages around 2.0 - 2.7mg/dl * thought to be secondary to her HTN, DM, cardiac/vascular disease and need for diuretics to maintain her volume status * noted fluctuations in kidney function due to fluid status and diuretics (3) Hyperkalemia: Code(s): E87.5 - Hyperkalemia Status: Acute Assessment and Plan: * resolved * due to GISELLE and ARB therapy * follow trend (4) DKA (diabetic ketoacidosis): Code(s): E11.10 - Type 2 diabetes mellitus with ketoacidosis without coma Status: Acute Assessment and Plan: * resolving with current therapy * off insuling gtt and IVFs * switching to SQ insulin (5) Hypotension: Qualifiers: Hypotension type: unspecified hypotension type Qualified Code(s): I95.9 - Hypotension, unspecified Code(s): I95.9 - Hypotension, unspecified Status: Acute Assessment and Plan: * due to relative volume depletion * BP doing better * follow trend of hemodynamics (6) Acute and chronic respiratory failure with hypoxia: Code(s): J96.21 - Acute and chronic respiratory failure with hypoxia Status: Acute Assessment and Plan: * on baseline oxygen requirements * however, CXR with CHF findings * diuretics on hold but may need to restart (7) CHF (congestive heart failure): Qualifiers: Heart failure chronicity: acute on chronic Heart failure type: unspecified Qualified Code(s): I50.9 - Heart failure, unspecified Code(s): I50.9 - Heart failure, unspecified Status: Chronic Assessment and Plan: * follows with Dr. Ritter * despite valvular heart disease, deemed to high risk for surgical intervention * may need to restart diuretic therapy sooner than later Will continue to follow. Subjective Date/time seen: 03/22/21 12:50 Transferred out of ICU yesterday afternoon; overall, seems to be doing better; major complaint is that of weakness (which I believe why she was at [facility] prior to admission); Exam Narrative: General: WD/WN female in NAD Heart: normal S1 and S2; no rub Lungs: clear to auscultation; decreased at bases Abdomen: soft, nontender, nondistended, positive bowel sounds Extremities: no cyanosis or clubbing; no edema Skin: warm and dry Objective Data Vital Signs Vital Signs: Vital Signs Temp Pulse Resp BP Pulse Ox 03/22/21 12:00 80 03/22/21 11:26 96 03/22/21 09:00 37.0 C 03/22/21 08:00 37.0 C 72 20 148/50 H 94 03/22/21 07:00 36.4 C L 03/22/21 06:29 35.7 C L 03/22/21 05:59 35.1 C L 03/22/21 05:44 34.7 C L 03/22/21 05:29 34.6 C L 03/22/21 05:14 33.9 C L
--- NOTE | 2021-03-22 12:50 | PM.PNNEP ---
Progress Note: A&P Assessment and Plan (1) GISELLE (acute kidney injury): Code(s): N17.9 - Acute kidney failure, unspecified Status: Acute Assessment and Plan: likely due to a combination of volume depletion and hypotension creatine has fluctuated to extremes in the last few years cannot deny the possibility of kidney disease progression as well BUN and creatinine a bit better associated with better urine output follow trend of repeat labs and UOP (2) Chronic kidney disease, stage IV (severe): Code(s): N18.4 - Chronic kidney disease, stage 4 (severe) Status: Chronic Assessment and Plan: baseline creatine averages around 2.0 - 2.7mg/dl thought to be secondary to her HTN, DM, cardiac/vascular disease and need for diuretics to maintain her volume status noted fluctuations in kidney function due to fluid status and diuretics (3) Hyperkalemia: Code(s): E87.5 - Hyperkalemia Status: Acute Assessment and Plan: resolved due to GISELLE and ARB therapy follow trend (4) DKA (diabetic ketoacidosis): Code(s): E11.10 - Type 2 diabetes mellitus with ketoacidosis without coma Status: Acute Assessment and Plan: resolving with current therapy off insuling gtt and IVFs switching to SQ insulin (5) Hypotension: Qualifiers: Hypotension type: unspecified hypotension type Qualified Code(s): I95.9 - Hypotension, unspecified Code(s): I95.9 - Hypotension, unspecified Status: Acute Assessment and Plan: due to relative volume depletion BP doing better follow trend of hemodynamics (6) Acute and chronic respiratory failure with hypoxia: Code(s): J96.21 - Acute and chronic respiratory failure with hypoxia Status: Acute Assessment and Plan: on baseline oxygen requirements however, CXR with CHF findings diuretics on hold but may need to restart (7) CHF (congestive heart failure): Qualifiers: Heart failure chronicity: acute on chronic Heart failure type: unspecified Qualified Code(s): I50.9 - Heart failure, unspecified Code(s): I50.9 - Heart failure, unspecified Status: Chronic Assessment and Plan: follows with Dr. Ritter despite valvular heart disease, deemed to high risk for surgical intervention may need to restart diuretic therapy sooner than later Will continue to follow. Subjective Date/time seen: 02/06/22 12:50 Transferred out of ICU yesterday afternoon; overall, seems to be doing better; major complaint is that of weakness (which I believe why she was at [facility] prior to admission); Exam Narrative: General: WD/WN female in NAD Heart: normal S1 and S2; no rub Lungs: clear to auscultation; decreased at bases Abdomen: soft, nontender, nondistended, positive bowel sounds Extremities: no cyanosis or clubbing; no edema Skin: warm and dry Objective Data Vital Signs Vital Signs: Vital Signs Temp Pulse Resp BP Pulse Ox 03/22/21 12:00 80 03/22/21 11:26 96 03/22/21 09:00 37.0 C 03/22/21 08:00 37.0 C 72 20 148/50 H 94 03/22/21 07:00 36.4 C L 03/22/21 06:29 35.7 C L 03/22/21 05:59 35.1 C L 03/22/21 05:44 34.7 C L 03/22/21 05:29 34.6 C L 03/22/21 05:14 33.9 C L 03/22/21 04:59 33.9 C L 03/22/21 04:07 69 20 143/46 H 97 03/22/21 04:00 65 03/22/21 02:11 36.6 C 73 97 03/22/21 00:00 36.1 C L 72 14 132/54 L 98 03/21/21 21:51 94 03/21/21 20:00 36.5 C 70 20 138/53 L 97 03/21/21 16:12 95 03/21/21 16:00 36.4 C 70 20 100/75 95 Intake/Output Intake/Output: Intake & Output 03/19/21 03/20/21 03/21/21 03/22/21 23:59 23:59 23:59 23:59 Intake Total 4000 1230 420 Output Total 0 250 850 Balance 4000 980 -430 Meds/Results Medications: Active Medications Generic Name Dose Route Start Last Admin Tr
[2021-03-22] MEDS: INSULIN GLARGINE (*BKC) 100 UNITS/ML SUB-Q (13:11)
--- NOTE | 2021-03-22 13:47 | PM.IMPN ---
Progress Note: A&P Assessment and Plan (1) DKA (diabetic ketoacidosis): Code(s): E11.10 - Type 2 diabetes mellitus with ketoacidosis without coma Status: Acute Assessment and Plan: patient presented with elevated blood sugars, dehydration hypovolemia and metabolic acidosis she was given IV fluid bolus and started on IV insulin drip anion gap closed and patient has been transitioned to subcutaneous insulin cautious IV fluids due to consider of congestive heart failure A1c came back at 6.6 20 units Lantus was given yesterday with subsequent severe hypoglycemia overnight. Will lower the Lantus to 5 units today and monitor Accu-Cheks She has labile blood sugar with severe hypoglycemia and severe hyperglycemia. She also has worsening renal function likely causing the lability (2) Hypoglycemia: Code(s): E16.2 - Hypoglycemia, unspecified Status: Acute Assessment and Plan: patient eventually became hypoglycemic and insulin drip was stopped she was started on D5 fluids patient ate this morning and now her sugars are elevated. dextrose discontinue continue to monitor sugars for now (3) Hypotension: Qualifiers: Hypotension type: unspecified hypotension type Qualified Code(s): I95.9 - Hypotension, unspecified Code(s): I95.9 - Hypotension, unspecified Status: Acute Assessment and Plan: patient was hypotensive on presentation likely secondary to hypovolemia and dehydration blood pressure has improved after IV fluid bolus off of IV fluids at this time blood pressure improved (4) Bradycardia: Code(s): R00.1 - Bradycardia, unspecified Status: Acute Assessment and Plan: improved (5) Acute and chronic respiratory failure with hypoxia: Code(s): J96.21 - Acute and chronic respiratory failure with hypoxia Status: Acute Assessment and Plan: patient is on oxygen at home and is currently on 2 L oxygen chest x-ray shows congestive heart failure hold further IV fluids Will need to re-initiate her regular diuretics (6) CHF (congestive heart failure): Qualifiers: Heart failure chronicity: acute on chronic Heart failure type: unspecified Qualified Code(s): I50.9 - Heart failure, unspecified Code(s): I50.9 - Heart failure, unspecified Status: Chronic Assessment and Plan: patient does have congestive heart failure but her oxygen requirement is at baseline hold her diuretics for another 24 hours long as her oxygen need does not go up patient has aortic stenosis mitral regurgitation and mitral stenosis and tricuspid regurgitation - no intervention for those at this time Chest x-ray reviewed with worsening diffuse lung disease consistent with pneumonia versus pulmonary edema BNP in 19,000 (7) DVT prophylaxis: Code(s): Z29.9 - Encounter for prophylactic measures, unspecified Status: Acute Assessment and Plan: T[place]hax (8) Chronic kidney disease, stage IV (severe): Code(s): N18.4 - Chronic kidney disease, stage 4 (severe) Status: Chronic Assessment and Plan: consult nephrology as I suspect patient is close to needing dialysis her urine output is poor and uremia is getting worse her acid-base status and electrolytes acceptable at this time (9) Hyperkalemia: Code(s): E87.5 - Hyperkalemia Status: Acute Assessment and Plan: secondary to DKA and CKD patient given IV fluid bolus and IV insulin resolved (10) Lactic acidosis: Code(s): E87.2 - Acidosis Status: Acute Assessment and Plan: slightly elevated lactic acid level likely secondary dehydration hypovolemia and has resolved patient's chest x-ray shows pulmonary edema UA was negative her procalcitonin is normal blood and urine culture sent and pending at this time hold antibiotics at this time (11) Coronary artery disease: Code(s): I25.10 - Athero
[2021-03-22 15:08] LABS: Glucose Point of Care 348 mg/dl (65-105)
[2021-03-22 17:01] LABS: Glucose Point of Care 334 mg/dl (65-105)
[2021-03-22] MEDS: INSULIN ASPART (*BKC) 100 UNITS/ML SUB-Q (17:08)
[2021-03-22] MEDS: FUROSEMIDE 40 MG TABLET PO (17:10)
[2021-03-22] MEDS: MAGNESIUM OXIDE 200 MG TABLET PO (17:10)
[2021-03-22] MEDS: rOPINIRole HCL 0.25 MG TABLET PO (20:07)
[2021-03-22] MEDS: carvediloL 25 MG TABLET PO (20:07)
[2021-03-23] VITALS (24 sets, daily range): BP systolic 137–151; BP diastolic 51–61; PULSE 67–88; RESP 16–20; TEMP 36.1–36.5; O2SAT 90–100; BMI 23.0
[2021-03-23 00:30] LABS: Glucose Point of Care 236 mg/dl (65-105)
[2021-03-23 00:30] LABS: Glucose Point of Care 263 mg/dl (65-105)
[2021-03-23 00:30] LABS: Glucose Point of Care 221 mg/dl (65-105)
[2021-03-23 06:05] LABS: Glucose Point of Care 204 mg/dl (65-105)
[2021-03-23 06:05] LABS: Glucose Point of Care 166 mg/dl (65-105)
[2021-03-23 06:26] LABS: Hematocrit 25.9 % (37.0-47.0); Hemoglobin 8.2 g/dL (12.0-15.0); Mean Corpuscular HGB Conc 31.7 g/dl (32-36); Mean Corpuscular Hemoglobin 32.9 pg (26-34); Mean Platelet Volume 10.8 fl (7.4-10.4); Platelet Count Result 252 k/mm3 (150-375); Red Blood Count 2.49 M/mm3 (4.2-5.4); Red Cell Distribution Width 16.2 % (11.5-14.5); White Blood Count 10.4 K/mm3 (4.5-10.0)
[2021-03-23 06:39] LABS: Alanine Aminotransferase 20 U/L (4-35); Albumin Level 3.1 g/dL (3.5-5.1); Alkaline Phosphatase 76 U/L (38-126); Anion Gap 4 mmol/L (8-16); Aspartate Amino Transferase 26 U/L (14-36); Bilirubin,Total 0.3 mg/dL (0.2-1.3); Blood Urea Nitrogen 73 mg/dL (7-17); Calcium 7.4 mg/dL (8.4-10.2); Carbon Dioxide 23 mmol/L (22-30); Chloride 103 mmol/L (98-107); Estimated CRCL calculation 17 ml/min; Estimated Glomerular Filt Rate 20; Glucose 177 mg/dL (65-110); Magnesium 2.6 mg/dL (1.6-2.3); Potassium 4.4 mmol/L (3.4-5.0); Sodium 130 mmol/L (137-145)
[2021-03-23 07:39] LABS: Glucose Point of Care 172 mg/dl (65-105)
[2021-03-23] MEDS: ENOXAPARIN 30 MG/0.3 ML SYRINGE SUB-Q (08:12)
[2021-03-23] MEDS: FUROSEMIDE 40 MG TABLET PO ×2 (08:12→18:22)
[2021-03-23] MEDS: calcitrioL 0.25 MCG CAPSULE PO (08:12)
[2021-03-23] MEDS: OLMESARTAN MEDOXOMIL 20 MG TABLET 40 MG PO (08:12)
[2021-03-23] MEDS: ASPIRIN 81 MG ENTERIC TABLET PO (08:12)
[2021-03-23] MEDS: MAGNESIUM OXIDE 200 MG TABLET PO ×2 (08:12→18:22)
[2021-03-23] MEDS: ASCORBIC ACID 500 MG TABLET 1000 MG PO (08:12)
[2021-03-23] MEDS: carvediloL 25 MG TABLET PO ×2 (08:12→20:25)
[2021-03-23] MEDS: ATORVASTATIN 40 MG TABLET PO (08:13)
[2021-03-23] MEDS: THERAPEUTIC MULTIVITAMINS/MINERALS TAB (*BKC) 1 TABLET PO (08:13)
[2021-03-23] MEDS: FLUTICASONE PROPIONATE 0.05% NA SPR 16 GM BTL (*BKC) 2 SPRAY NASAL (08:13)
[2021-03-23] MEDS: FERROUS SULFATE 324 MG TABLET PO (08:13)
[2021-03-23] MEDS: amLODIPine BESYLATE 5 MG TABLET 10 MG PO (08:13)
[2021-03-23] MEDS: INSULIN GLARGINE (*BKC) 100 UNITS/ML SUB-Q (08:17)
[2021-03-23] MEDS: ALBUTEROL SULFATE NEB 2.5 MG/0.5 ML INH INHALATION ×4 (09:02→20:03)
[2021-03-23 11:40] LABS: Glucose Point of Care 240 mg/dl (65-105)
--- NOTE | 2021-03-23 11:50 | P.PNNP_ITS ---
Progress Note: A&P Assessment and Plan (1) GISELLE (acute kidney injury): Code(s): N17.9 - Acute kidney failure, unspecified Status: Acute Assessment and Plan: * improving * likely due to a combination of volume depletion and hypotension * creatinine has fluctuated to extremes in the last few years * BUN and creatinine better associated with better urine output * follow trend of repeat labs and UOP (2) Chronic kidney disease, stage IV (severe): Code(s): N18.4 - Chronic kidney disease, stage 4 (severe) Status: Chronic Assessment and Plan: * baseline creatine averages around 2.0 - 2.7mg/dl * thought to be secondary to her HTN, DM, cardiac/vascular disease and need for diuretics to maintain her volume status * noted fluctuations in kidney function due to fluid status and diuretics (3) Hyperkalemia: Code(s): E87.5 - Hyperkalemia Status: Acute Assessment and Plan: * resolved * due to GISELLE and ARB therapy * follow trend (4) DKA (diabetic ketoacidosis): Code(s): E11.10 - Type 2 diabetes mellitus with ketoacidosis without coma Status: Acute Assessment and Plan: * resolved * follow accuchecks * glycemic control (5) Hypotension: Qualifiers: Hypotension type: unspecified hypotension type Qualified Code(s): I95.9 - Hypotension, unspecified Code(s): I95.9 - Hypotension, unspecified Status: Acute Assessment and Plan: * resolved * BP doing better * follow trend of hemodynamics (6) Acute and chronic respiratory failure with hypoxia: Code(s): J96.21 - Acute and chronic respiratory failure with hypoxia Status: Acute Assessment and Plan: * on baseline oxygen requirements * however, CXR with CHF findings * diuretics restarted (7) CHF (congestive heart failure): Qualifiers: Heart failure chronicity: acute on chronic Heart failure type: unspecified Qualified Code(s): I50.9 - Heart failure, unspecified Code(s): I50.9 - Heart failure, unspecified Status: Chronic Assessment and Plan: * follows with Dr. Ritter * despite valvular heart disease, deemed to high risk for surgical intervention * diuretics have been resumed Will continue to follow. Subjective Date/time seen: 03/23/21 11:50 Slow improvement noted; getting breathing treatment at the time of my visit; improvement in renal function associated with better urine output noted in the last 24 - 48 hours; restarted back on oral diuretics today; no issues/events overnight or earlier this AM. Exam Narrative: General: WD/WN female in NAD Heart: normal S1 and S2; no rub Lungs: clear to auscultation; decreased at bases Abdomen: soft, nontender, nondistended, positive bowel sounds Extremities: no cyanosis or clubbing; no edema Skin: warm and dry Objective Data Vital Signs Vital Signs: Vital Signs Temp Pulse Resp BP Pulse Ox 03/23/21 09:12 82 20 03/23/21 09:05 90 03/23/21 09:04 85 20 03/23/21 08:15 91 03/23/21 08:12 88 03/23/21 08:00 76 03/23/21 04:11 67 03/23/21 00:00 70 03/22/21 20:07 72 03/22/21 20:06 36.4 C 72 20 151/56 H 97 03/22/21 20:00 73 03/22/21 16:00 78 03/22/21 14:50 75 20 148/49 H 97
--- NOTE | 2021-03-23 11:50 | PM.PNNEP ---
Progress Note: A&P Assessment and Plan (1) GISELLE (acute kidney injury): Code(s): N17.9 - Acute kidney failure, unspecified Status: Acute Assessment and Plan: improving likely due to a combination of volume depletion and hypotension creatinine has fluctuated to extremes in the last few years BUN and creatinine better associated with better urine output follow trend of repeat labs and UOP (2) Chronic kidney disease, stage IV (severe): Code(s): N18.4 - Chronic kidney disease, stage 4 (severe) Status: Chronic Assessment and Plan: baseline creatine averages around 2.0 - 2.7mg/dl thought to be secondary to her HTN, DM, cardiac/vascular disease and need for diuretics to maintain her volume status noted fluctuations in kidney function due to fluid status and diuretics (3) Hyperkalemia: Code(s): E87.5 - Hyperkalemia Status: Acute Assessment and Plan: resolved due to GISELLE and ARB therapy follow trend (4) DKA (diabetic ketoacidosis): Code(s): E11.10 - Type 2 diabetes mellitus with ketoacidosis without coma Status: Acute Assessment and Plan: resolved follow accuchecks glycemic control (5) Hypotension: Qualifiers: Hypotension type: unspecified hypotension type Qualified Code(s): I95.9 - Hypotension, unspecified Code(s): I95.9 - Hypotension, unspecified Status: Acute Assessment and Plan: resolved BP doing better follow trend of hemodynamics (6) Acute and chronic respiratory failure with hypoxia: Code(s): J96.21 - Acute and chronic respiratory failure with hypoxia Status: Acute Assessment and Plan: on baseline oxygen requirements however, CXR with CHF findings diuretics restarted (7) CHF (congestive heart failure): Qualifiers: Heart failure chronicity: acute on chronic Heart failure type: unspecified Qualified Code(s): I50.9 - Heart failure, unspecified Code(s): I50.9 - Heart failure, unspecified Status: Chronic Assessment and Plan: follows with Dr. Ritter despite valvular heart disease, deemed to high risk for surgical intervention diuretics have been resumed Will continue to follow. Subjective Date/time seen: 03/23/21 11:50 Slow improvement noted; getting breathing treatment at the time of my visit; improvement in renal function associated with better urine output noted in the last 24 - 48 hours; restarted back on oral diuretics today; no issues/events overnight or earlier this AM. Exam Narrative: General: WD/WN female in NAD Heart: normal S1 and S2; no rub Lungs: clear to auscultation; decreased at bases Abdomen: soft, nontender, nondistended, positive bowel sounds Extremities: no cyanosis or clubbing; no edema Skin: warm and dry Objective Data Vital Signs Vital Signs: Vital Signs Temp Pulse Resp BP Pulse Ox 03/23/21 09:12 82 20 03/23/21 09:05 90 03/23/21 09:04 85 20 03/23/21 08:15 91 03/23/21 08:12 88 03/23/21 08:00 76 03/23/21 04:11 67 03/23/21 00:00 70 03/22/21 20:07 72 03/22/21 20:06 36.4 C 72 20 151/56 H 97 03/22/21 20:00 73 03/22/21 16:00 78 03/22/21 14:50 75 20 148/49 H 97 03/22/21 12:00 80 Intake/Output Intake/Output: Intake & Output 03/20/21 03/21/21 03/22/21 03/23/21 23:59 23:59 23:59 23:59 Intake Total 4000 1230 900 320 Output Total 0 250 1650 400 Balance 4000 980 -750 -80 Meds/Results Medications: Active Medications Generic Name Dose Route Start Last Admin Trade Name Freq PRN Reason Stop Dose Admin Acetaminophen 650 mg 03/21/21 22:15 03/21/21 22:32 Acetaminophen 325 Mg Tablet PO 650 mg Q6H PRN Administration Mild Pain (1-3) or Fever Albuterol 2.5 mg 03/23/21 08:30 03/23/21 09:02 Albuterol Sulfate Neb 2.5 Mg/0.5 Ml Inh INHALATION 2.5 mg Q4HRT [facility] Administ
--- NOTE | 2021-03-23 14:48 | PM.IMPN ---
Progress Note: A&P Assessment and Plan (1) DKA (diabetic ketoacidosis): Code(s): E11.10 - Type 2 diabetes mellitus with ketoacidosis without coma Status: Acute Assessment and Plan: patient presented with elevated blood sugars, dehydration hypovolemia and metabolic acidosis she was given IV fluid bolus and started on IV insulin drip anion gap closed and patient has been transitioned to subcutaneous insulin cautious IV fluids due to consider of congestive heart failure A1c came back at 6.6 20 units Lantus was given yesterday with subsequent severe hypoglycemia overnight. Will lower the Lantus to 5 units today and monitor Accu-Cheks She has labile blood sugar with severe hypoglycemia and severe hyperglycemia. She also has worsening renal function likely causing the lability Will continue Lantus 5 units daily along with sliding scale insulin no hypoglycemia noted over the last 24 hours (2) Hypoglycemia: Code(s): E16.2 - Hypoglycemia, unspecified Status: Acute Assessment and Plan: patient eventually became hypoglycemic and insulin drip was stopped she was started on D5 fluids patient ate this morning and now her sugars are elevated. dextrose discontinue continue to monitor sugars for now (3) Hypotension: Qualifiers: Hypotension type: unspecified hypotension type Qualified Code(s): I95.9 - Hypotension, unspecified Code(s): I95.9 - Hypotension, unspecified Status: Acute Assessment and Plan: patient was hypotensive on presentation likely secondary to hypovolemia and dehydration blood pressure has improved after IV fluid bolus off of IV fluids at this time blood pressure improved (4) Bradycardia: Code(s): R00.1 - Bradycardia, unspecified Status: Acute Assessment and Plan: improved (5) Acute and chronic respiratory failure with hypoxia: Code(s): J96.21 - Acute and chronic respiratory failure with hypoxia Status: Acute Assessment and Plan: patient is on oxygen at home and is currently on 2 L oxygen chest x-ray shows congestive heart failure hold further IV fluids Will need to re-initiate her regular diuretics Oxygen requirement has gone up most likely related to underlying CHF/COPD Continue breathing treatments as ordered Chest x-ray on 03/23/2021 remains unchanged will continue diuretics as ordered for now (6) CHF (congestive heart failure): Qualifiers: Heart failure chronicity: acute on chronic Heart failure type: unspecified Qualified Code(s): I50.9 - Heart failure, unspecified Code(s): I50.9 - Heart failure, unspecified Status: Chronic Assessment and Plan: patient does have congestive heart failure but her oxygen requirement is at baseline hold her diuretics for another 24 hours long as her oxygen need does not go up patient has aortic stenosis mitral regurgitation and mitral stenosis and tricuspid regurgitation - no intervention for those at this time Chest x-ray reviewed with worsening diffuse lung disease consistent with pneumonia versus pulmonary edema BNP in 19,000 Chest x-ray 03/23/2021 with similar diffuse lung disease noted continue diuresis as ordered (7) DVT prophylaxis: Code(s): Z29.9 - Encounter for prophylactic measures, unspecified Status: Acute Assessment and Plan: Lovenox (8) Chronic kidney disease, stage IV (severe): Code(s): N18.4 - Chronic kidney disease, stage 4 (severe) Status: Chronic Assessment and Plan: consult nephrology as I suspect patient is close to needing dialysis her urine output is poor and uremia is getting worse her acid-base status and electrolytes acceptable at this time (9) Hyperkalemia: Code(s): E87.5 - Hyperkalemia Status: Acute Assessment and Plan: secondary to DKA and CKD patient given IV fluid bolus and IV insulin resolved (10) Lactic acidosis: Code(s)
[2021-03-23 15:57] LABS: Glucose Point of Care 258 mg/dl (65-105)
[2021-03-23] MEDS: INSULIN ASPART (*BKC) 100 UNITS/ML SUB-Q (18:21)
[2021-03-23 20:15] LABS: Glucose Point of Care 256 mg/dl (65-105)
[2021-03-23] MEDS: rOPINIRole HCL 0.25 MG TABLET PO (20:26)
[2021-03-23 21:18] LABS: Glucose Point of Care 233 mg/dl (65-105)
[2021-03-24] VITALS (23 sets, daily range): BP systolic 129–150; BP diastolic 54–60; PULSE 71–81; RESP 16–28; TEMP 36.3–36.8; O2SAT 93–100
[2021-03-24] MEDS: ALBUTEROL SULFATE NEB 2.5 MG/0.5 ML INH INHALATION ×6 (00:14→19:59)
[2021-03-24 00:17] LABS: Glucose Point of Care 159 mg/dl (65-105)
[2021-03-24 06:32] LABS: Hematocrit 27.7 % (37.0-47.0); Hemoglobin 8.7 g/dL (12.0-15.0); Mean Corpuscular HGB Conc 31.4 g/dl (32-36); Mean Corpuscular Hemoglobin 33.1 pg (26-34); Mean Corpuscular Volume 105.3 fl (80-100); Mean Platelet Volume 10.8 fl (7.4-10.4); Platelet Count Result 255 k/mm3 (150-375); Red Blood Count 2.63 M/mm3 (4.2-5.4); Red Cell Distribution Width 15.9 % (11.5-14.5); White Blood Count 13.2 K/mm3 (4.5-10.0)
[2021-03-24 06:41] LABS: Alanine Aminotransferase 17 U/L (4-35); Albumin Level 3.2 g/dL (3.5-5.1); Alkaline Phosphatase 89 U/L (38-126); Anion Gap 3 mmol/L (8-16); Aspartate Amino Transferase 27 U/L (14-36); Bilirubin,Total 0.5 mg/dL (0.2-1.3); Blood Urea Nitrogen 65 mg/dL (7-17); Calcium 7.7 mg/dL (8.4-10.2); Carbon Dioxide 23 mmol/L (22-30); Chloride 103 mmol/L (98-107); Estimated CRCL calculation 20 ml/min; Estimated Glomerular Filt Rate 23; Glucose 278 mg/dL (65-110); Magnesium 2.5 mg/dL (1.6-2.3); Potassium 4.7 mmol/L (3.4-5.0); Sodium 129 mmol/L (137-145)
[2021-03-24 06:54] LABS: Glucose Point of Care 266 mg/dl (65-105)
[2021-03-24 07:34] LABS: Glucose Point of Care 239 mg/dl (65-105)
[2021-03-24] MEDS: THERAPEUTIC MULTIVITAMINS/MINERALS TAB (*BKC) 1 TABLET PO (07:56)
[2021-03-24] MEDS: ASCORBIC ACID 500 MG TABLET 1000 MG PO (07:56)
[2021-03-24] MEDS: MAGNESIUM OXIDE 200 MG TABLET PO ×2 (07:56→17:05)
[2021-03-24] MEDS: FUROSEMIDE 40 MG TABLET PO ×2 (07:56→17:05)
[2021-03-24] MEDS: ASPIRIN 81 MG ENTERIC TABLET PO (07:56)
[2021-03-24] MEDS: amLODIPine BESYLATE 5 MG TABLET 10 MG PO (07:57)
[2021-03-24] MEDS: ATORVASTATIN 40 MG TABLET PO (07:57)
[2021-03-24] MEDS: OLMESARTAN MEDOXOMIL 20 MG TABLET 40 MG PO (07:58)
[2021-03-24] MEDS: carvediloL 25 MG TABLET PO ×2 (07:58→21:45)
[2021-03-24] MEDS: FERROUS SULFATE 324 MG TABLET PO (07:59)
[2021-03-24] MEDS: TIZANIDINE HCL 2 MG TABLET PO (07:59)
[2021-03-24] MEDS: ENOXAPARIN 30 MG/0.3 ML SYRINGE SUB-Q (07:59)
[2021-03-24] MEDS: INSULIN ASPART (*BKC) 100 UNITS/ML SUB-Q ×3 (08:01→17:00)
[2021-03-24] MEDS: FLUTICASONE PROPIONATE 0.05% NA SPR 16 GM BTL (*BKC) 2 SPRAY NASAL (08:05)
--- NOTE | 2021-03-24 10:10 | P.PNNP_ITS ---
Progress Note: A&P Assessment and Plan (1) GISELLE (acute kidney injury): Code(s): N17.9 - Acute kidney failure, unspecified Status: Acute Assessment and Plan: * improving * likely due to a combination of volume depletion and hypotension * creatinine has fluctuated to extremes in the last few years * BUN and creatinine better associated with better urine output at this time * follow trend of repeat labs and UOP (2) Chronic kidney disease, stage IV (severe): Code(s): N18.4 - Chronic kidney disease, stage 4 (severe) Status: Chronic Assessment and Plan: * baseline creatine averages around 2.0 - 2.7mg/dl * thought to be secondary to her HTN, DM, cardiac/vascular disease and need for diuretics to maintain her volume status * noted fluctuations in kidney function due to fluid status and diuretics (3) Acute and chronic respiratory failure with hypoxia: Code(s): J96.21 - Acute and chronic respiratory failure with hypoxia Status: Acute Assessment and Plan: * currently on more than baseline oxygen requirements * recent CXR results noted - pneumonia versus pulmonary edema versus both * diuretics restarted - increase dose or trial of IV?? * antibiotics? * repeat CXR today (4) CHF (congestive heart failure): Qualifiers: Heart failure chronicity: acute on chronic Heart failure type: un specified Qualified Code(s): I50.9 - Heart failure, unspecified Code(s): I50.9 - Heart failure, unspecified Status: Chronic Assessment and Plan: * follows with Dr. Ritter * despite valvular heart disease, deemed to high risk for surgical intervention * diuretics have been resumed (5) Hypertension: Code(s): I10 - Essential (primary) hypertension Status: Chronic Assessment and Plan: * hypotension resolved * slowly reintroduce anti-HTN medications * follow trend of hemodynamics (6) Diabetes: Code(s): E11.9 - Type 2 diabetes mellitus without complications Status: Chronic Assessment and Plan: * DKA resolved * follow accuchecks * on SSI Will continue to follow. Subjective Date/time seen: 03/24/21 10:10 Fluctuating oxygen requirements yesterday and today -- did better following breathing treatments and restarted of oral diuretic therapy but still on more supplemental oxygen than baseline with CXR results noted from yesterday morning as well; mentation seems to be fluctuating as well. Exam Narrative: General: WD/WN female in NAD Heart: normal S1 and S2; no rub Lungs: coarse breath sounds Abdomen: soft, nontender, nondistended, positive bowel sounds Extremities: no cyanosis or clubbing; no edema Skin: warm and intact Objective Data Vital Signs Vital Signs: Vital Signs Temp Pulse Resp BP Pulse Ox 03/24/21 10:00 78 24 H 93 03/24/21 09:50 73 28 H 93 03/24/21 08:00 78 03/24/21 07:58 79 03/24/21 05:21 36.6 C 80 18 150/58 H 95 03/24/21 04:33 77 24 H 03/24/21 04:25 76 24 H 03/24/21 04:04 78 03/24/21 00:26 77 20 03/24/21 00:15 74 20 03/24/21 00:05 77 03/23/21 21:38 36.5 C 77 16 151/61 H 100 03/23/21 20:31 20 92 03/23/21 20:25 79 03/23/21 20:12 77 20 03/23/21 20:04 81 03/23/21 20:03 75 2
--- NOTE | 2021-03-24 10:10 | PM.PNNEP ---
Progress Note: A&P Assessment and Plan (1) GISELLE (acute kidney injury): Code(s): N17.9 - Acute kidney failure, unspecified Status: Acute Assessment and Plan: improving likely due to a combination of volume depletion and hypotension creatinine has fluctuated to extremes in the last few years BUN and creatinine better associated with better urine output at this time follow trend of repeat labs and UOP (2) Chronic kidney disease, stage IV (severe): Code(s): N18.4 - Chronic kidney disease, stage 4 (severe) Status: Chronic Assessment and Plan: baseline creatine averages around 2.0 - 2.7mg/dl thought to be secondary to her HTN, DM, cardiac/vascular disease and need for diuretics to maintain her volume status noted fluctuations in kidney function due to fluid status and diuretics (3) Acute and chronic respiratory failure with hypoxia: Code(s): J96.21 - Acute and chronic respiratory failure with hypoxia Status: Acute Assessment and Plan: currently on more than baseline oxygen requirements recent CXR results noted - pneumonia versus pulmonary edema versus both diuretics restarted - increase dose or trial of IV?? antibiotics? repeat CXR today (4) CHF (congestive heart failure): Qualifiers: Heart failure chronicity: acute on chronic Heart failure type: unspecified Qualified Code(s): I50.9 - Heart failure, unspecified Code(s): I50.9 - Heart failure, unspecified Status: Chronic Assessment and Plan: follows with Dr. Ritter despite valvular heart disease, deemed to high risk for surgical intervention diuretics have been resumed (5) Hypertension: Code(s): I10 - Essential (primary) hypertension Status: Chronic Assessment and Plan: hypotension resolved slowly reintroduce anti-HTN medications follow trend of hemodynamics (6) Diabetes: Code(s): E11.9 - Type 2 diabetes mellitus without complications Status: Chronic Assessment and Plan: DKA resolved follow accuchecks on SSI Will continue to follow. Subjective Date/time seen: 03/24/21 10:10 Fluctuating oxygen requirements yesterday and today -- did better following breathing treatments and restarted of oral diuretic therapy but still on more supplemental oxygen than baseline with CXR results noted from yesterday morning as well; mentation seems to be fluctuating as well. Exam Narrative: General: WD/WN female in NAD Heart: normal S1 and S2; no rub Lungs: coarse breath sounds Abdomen: soft, nontender, nondistended, positive bowel sounds Extremities: no cyanosis or clubbing; no edema Skin: warm and intact Objective Data Vital Signs Vital Signs: Vital Signs Temp Pulse Resp BP Pulse Ox 03/24/21 10:00 78 24 H 93 03/24/21 09:50 73 28 H 93 03/24/21 08:00 78 03/24/21 07:58 79 03/24/21 05:21 36.6 C 80 18 150/58 H 95 03/24/21 04:33 77 24 H 03/24/21 04:25 76 24 H 03/24/21 04:04 78 03/24/21 00:26 77 20 03/24/21 00:15 74 20 03/24/21 00:05 77 03/23/21 21:38 36.5 C 77 16 151/61 H 100 03/23/21 20:31 20 92 03/23/21 20:25 79 03/23/21 20:12 77 20 03/23/21 20:04 81 03/23/21 20:03 75 20 03/23/21 16:35 74 20 03/23/21 16:31 92 03/23/21 16:28 71 20 03/23/21 16:00 74 03/23/21 14:39 92 03/23/21 14:15 36.1 C L 70 20 137/51 L 90 03/23/21 14:10 90 03/23/21 12:17 69 20 03/23/21 12:07 67 20 03/23/21 12:00 67 Intake/Output Intake/Output: Intake & Output 03/21/21 03/22/21 03/23/21 03/24/21 23:59 23:59 23:59 23:59 Intake Total 1230 900 560 250 Output Total 250 1650 1150 Balance 504 -750 -590 250 Meds/Results Medications: Active Medications Generic Name Dose Route Start Last Admin Trade Name Freq PRN Reason Stop Dose Admin Acetaminophen 650 mg 02
[2021-03-24 11:39] LABS: Glucose Point of Care 259 mg/dl (65-105)
[2021-03-24] MEDS: INSULIN GLARGINE (*BKC) 100 UNITS/ML SUB-Q ×2 (11:51→16:59)
--- NOTE | 2021-03-24 13:42 | PM.IMPN ---
Progress Note: A&P Assessment and Plan (1) DKA (diabetic ketoacidosis): Code(s): E11.10 - Type 2 diabetes mellitus with ketoacidosis without coma Status: Acute (2) Hypoglycemia: Code(s): E16.2 - Hypoglycemia, unspecified Status: Acute (3) Hypotension: Qualifiers: Hypotension type: unspecified hypotension type Qualified Code(s): I95.9 - Hypotension, unspecified Code(s): I95.9 - Hypotension, unspecified Status: Acute (4) Bradycardia: Code(s): R00.1 - Bradycardia, unspecified Status: Acute (5) Acute and chronic respiratory failure with hypoxia: Code(s): J96.21 - Acute and chronic respiratory failure with hypoxia Status: Acute (6) Acute on chronic diastolic heart failure: Code(s): I50.33 - Acute on chronic diastolic (congestive) heart failure Status: Acute (7) CHF (congestive heart failure): Qualifiers: Heart failure chronicity: acute on chronic Heart failure type: unspecified Qualified Code(s): I50.9 - Heart failure, unspecified Code(s): I50.9 - Heart failure, unspecified Status: Chronic (8) Chronic kidney disease, stage IV (severe): Code(s): N18.4 - Chronic kidney disease, stage 4 (severe) Status: Chronic (9) Elevated troponin: Code(s): R77.8 - Other specified abnormalities of plasma proteins Status: Acute (10) DKA (diabetic ketoacidoses): Qualifiers: Diabetes mellitus complication detail: with coma Diabetes mellitus type: other specified (including LOBO) Qualified Code(s): E13.11 - Other specified diabetes mellitus with ketoacidosis with coma Code(s): E11.10 - Type 2 diabetes mellitus with ketoacidosis without coma Status: Acute (11) Moderate aortic stenosis: Code(s): I35.0 - Nonrheumatic aortic (valve) stenosis Status: Acute (12) Hyperlipidemia: Qualifiers: Hyperlipidemia type: unspecified Qualified Code(s): E78.5 - Hyperlipidemia, unspecified Code(s): E78.5 - Hyperlipidemia, unspecified Status: Acute (13) Coronary artery disease: Code(s): I25.10 - Atherosclerotic heart disease of [place] coronary artery without angina pectoris Status: Acute (14) Acute on chronic diastolic (congestive) heart failure: Code(s): I50.33 - Acute on chronic diastolic (congestive) heart failure Status: Acute (15) Hyperkalemia: Code(s): E87.5 - Hyperkalemia Status: Acute (16) Lactic acidosis: Code(s): E87.2 - Acidosis Status: Acute (17) Metabolic encephalopathy: Code(s): G93.41 - Metabolic encephalopathy Status: Acute (18) Diabetes: Code(s): E11.9 - Type 2 diabetes mellitus without complications Status: Chronic (19) Hypertension: Code(s): I10 - Essential (primary) hypertension Status: Chronic Additional Plan acute hypoxemic respiratory failure currently on 15L STAT ABG CXR w worsening infiltrated cover w broad specturm abx increase lasix GISELLE improving, nephro following BG near goal Lantus increased to BID pt continues to have periods of confusion/ delayed congnition consistent w metabolic encephalopathy am labs repeat CXR in am Subjective Date/time seen: 03/24/21 13:42 patient doing okay intermittently confused but able to follow the conversation she is unclear about the events prior to her admission she does remember having COVID recently she does not remember being admitted with DKA and congestive heart failure. Patient states she lives alone and she is normally able to care for herself. Exam Narrative: General: Pt is alert awake and in Mild respiratory distress noted to have increased work of breathing currently on 15 L HEENT: normocephalic atraumatic sclerae anicteric conjunctiva noninjected Lungs/Chest: Diminished breath sounds BS B/L, diffuse crackles Cardiac: RRR. Normal S1 S2. loud systolic murmur murmu
[2021-03-24 15:11] LABS: Alveolar/Arterial O2 Gradient 496.8 mmHg; Base Excess ABG 0.7 mEq/l (+/-2.0); Carboxyhemoglobin 0.3 % THb (0-2.0); Fractional Inspired Oxygen 80 %; HCO3 ABG 21.5 mEq/l (22.0-26.0); Methemoglobin ABG 0.1 %THb (0-1.5); Oxygen Content ABG 12.3 %vol (16.0-22.0); Oxygen Saturation ABG 91.5 % (95.0-100.0); Oxyhemoglobin 90.1 % THb (90.0-100.0); PO2 FiO2 Ratio Arterial Blood 0.62 %; Reduced Hemoglobin 9.5 %THb (0-5.0); Total Hemoglobin 9.7 g/dL (12.0-18.0)
[2021-03-24] MEDS: FUROSEMIDE INJ 40 MG/4 ML VIAL IV PUSH (15:16)
[2021-03-24 15:18] LABS: PCO2 ABG 22.9 mmHg (35.0-45.0)
[2021-03-24 15:19] LABS: PO2 ABG 49.6 mmHg (80.0-100.0)
--- NOTE | 2021-03-24 15:39 | PCPTNOTE ---
Continue current PT POC, duplicate orders were placed and original order was cancelled.
[2021-03-24 16:25] LABS: Glucose Point of Care 261 mg/dl (65-105)
[2021-03-24 17:18] LABS: Alveolar/Arterial O2 Gradient 558.5 mmHg; Base Excess ABG 0.8 mEq/l (+/-2.0); Fractional Inspired Oxygen 100 %; HCO3 ABG 24.7 mEq/l (22.0-26.0); Oxygen Content ABG 12.5 %vol (16.0-22.0); Oxygen Saturation ABG 98.5 % (95.0-100.0); Oxyhemoglobin 96.9 % THb (90.0-100.0); PCO2 ABG 36.4 mmHg (35.0-45.0); PO2 ABG 118.1 mmHg (80.0-100.0); PO2 FiO2 Ratio Arterial Blood 1.18 %; pH ABG 7.449 (7.350-7.450)
[2021-03-24 17:22] LABS: Modified Allen's Test Pass; Site Drawn RIGHT RADIAL
[2021-03-24 17:23] LABS: Device HIGH FLOW NASAL CANN
[2021-03-24 20:56] LABS: Glucose Point of Care 295 mg/dl (65-105)
[2021-03-24] MEDS: rOPINIRole HCL 0.25 MG TABLET PO (21:44)
[2021-03-25] VITALS (22 sets, daily range): BP systolic 114–138; BP diastolic 43–52; PULSE 62–85; RESP 18–22; TEMP 36.2–36.4; O2SAT 96–100; BMI 22.8
[2021-03-25] MEDS: ALBUTEROL SULFATE NEB 2.5 MG/0.5 ML INH INHALATION ×6 (02:06→20:34)
[2021-03-25] MEDS: ACETAMINOPHEN 325 MG TABLET 650 MG PO ×2 (02:14→08:06)
[2021-03-25 05:47] LABS: Glucose Point of Care 141 mg/dl (65-105)
[2021-03-25 06:15] LABS: Basophils Absolute Auto 0.1 K/mm3 (0.0-0.1); Basophils Percent Auto 0.5 % (0.2-1.2); Eosinophils Absolute Auto 0.5 K/mm3 (0-0.3); Eosinophils Percent Auto 3.4 % (0-4.4); Hematocrit 25.4 % (37.0-47.0); Hemoglobin 8.1 g/dL (12.0-15.0); Immature Granulocyte Absolute 0.09 K/mm3 (0.00-0.031); Immature Granulocyte Percent A 0.6 % (0-0.5); Lymphocytes Absolute Auto 0.86 K/mm3 (0.9-3.2); Lymphocytes Percent Auto 5.8 % (18.3-44.2); Mean Corpuscular HGB Conc 31.9 g/dl (32-36); Mean Corpuscular Hemoglobin 32.9 pg (26-34); Mean Corpuscular Volume 103.3 fl (80-100); Mean Platelet Volume 10.6 fl (7.4-10.4); Monocytes Absolute Auto 1.5 K/mm3 (0.1-0.6); Monocytes Percent Auto 10.4 % (2.6-8.5); Neutrophils Absolute Auto 11.7 K/mm3 (1.3-6.7); Neutrophils Percent Auto 79.3 % (45.5-73.1); Platelet Count Result 225 k/mm3 (150-375); Red Blood Count 2.46 M/mm3 (4.2-5.4); Red Cell Distribution Width 15.8 % (11.5-14.5); White Blood Count 14.8 K/mm3 (4.5-10.0)
[2021-03-25 06:32] LABS: Alanine Aminotransferase 13 U/L (4-35); Alkaline Phosphatase 86 U/L (38-126); Anion Gap 3 mmol/L (8-16); Aspartate Amino Transferase 24 U/L (14-36); Bilirubin,Total 0.4 mg/dL (0.2-1.3); Blood Urea Nitrogen 66 mg/dL (7-17); Calcium 8.2 mg/dL (8.4-10.2); Carbon Dioxide 27 mmol/L (22-30); Chloride 104 mmol/L (98-107); Estimated CRCL calculation 20 ml/min; Estimated Glomerular Filt Rate 23; Glucose 134 mg/dL (65-110); Magnesium 2.5 mg/dL (1.6-2.3); Potassium 4.5 mmol/L (3.4-5.0); Sodium 134 mmol/L (137-145)
[2021-03-25 06:42] LABS: CRP 14.1 mg/dL (<1.0)
[2021-03-25 07:47] LABS: Glucose Point of Care 138 mg/dl (65-105)
[2021-03-25] MEDS: FERROUS SULFATE 324 MG TABLET PO (08:03)
[2021-03-25] MEDS: carvediloL 25 MG TABLET PO ×2 (08:03→20:56)
[2021-03-25] MEDS: ATORVASTATIN 40 MG TABLET PO (08:03)
[2021-03-25] MEDS: calcitrioL 0.25 MCG CAPSULE PO (08:03)
[2021-03-25] MEDS: OLMESARTAN MEDOXOMIL 20 MG TABLET 40 MG PO (08:03)
[2021-03-25] MEDS: MAGNESIUM OXIDE 200 MG TABLET PO ×2 (08:03→18:11)
[2021-03-25] MEDS: ASCORBIC ACID 500 MG TABLET 1000 MG PO (08:04)
[2021-03-25] MEDS: amLODIPine BESYLATE 5 MG TABLET 10 MG PO (08:04)
[2021-03-25] MEDS: FUROSEMIDE 40 MG TABLET PO ×2 (08:04→18:11)
[2021-03-25] MEDS: THERAPEUTIC MULTIVITAMINS/MINERALS TAB (*BKC) 1 TABLET PO (08:04)
[2021-03-25] MEDS: ENOXAPARIN 30 MG/0.3 ML SYRINGE SUB-Q (08:04)
[2021-03-25] MEDS: ASPIRIN 81 MG ENTERIC TABLET PO (08:04)
[2021-03-25] MEDS: INSULIN GLARGINE (*BKC) 100 UNITS/ML SUB-Q ×2 (08:06→18:10)
[2021-03-25] MEDS: FLUTICASONE PROPIONATE 0.05% NA SPR 16 GM BTL (*BKC) 2 SPRAY NASAL (08:07)
--- NOTE | 2021-03-25 11:25 | PCPTNOTE ---
Treatment not completed this AM due to pt stating she wasn't feeling well. The pts SPO2 was 100% on 15L high flow oxygen. Nursing stated that she is not sure how much we will get out of her today. Will continue per plan of care.
--- NOTE | 2021-03-25 11:59 | PM.IMPN ---
Progress Note: A&P Assessment and Plan (1) DKA (diabetic ketoacidosis): Code(s): E11.10 - Type 2 diabetes mellitus with ketoacidosis without coma Status: Acute (2) Hypoglycemia: Code(s): E16.2 - Hypoglycemia, unspecified Status: Acute (3) Hypotension: Qualifiers: Hypotension type: unspecified hypotension type Qualified Code(s): I95.9 - Hypotension, unspecified Code(s): I95.9 - Hypotension, unspecified Status: Acute (4) Bradycardia: Code(s): R00.1 - Bradycardia, unspecified Status: Acute (5) Acute and chronic respiratory failure with hypoxia: Code(s): J96.21 - Acute and chronic respiratory failure with hypoxia Status: Acute (6) Acute on chronic diastolic heart failure: Code(s): I50.33 - Acute on chronic diastolic (congestive) heart failure Status: Acute (7) CHF (congestive heart failure): Qualifiers: Heart failure chronicity: acute on chronic Heart failure type: unspecified Qualified Code(s): I50.9 - Heart failure, unspecified Code(s): I50.9 - Heart failure, unspecified Status: Chronic (8) Chronic kidney disease, stage IV (severe): Code(s): N18.4 - Chronic kidney disease, stage 4 (severe) Status: Chronic (9) Elevated troponin: Code(s): R77.8 - Other specified abnormalities of plasma proteins Status: Acute (10) Moderate aortic stenosis: Code(s): I35.0 - Nonrheumatic aortic (valve) stenosis Status: Acute (11) Hyperlipidemia: Qualifiers: Hyperlipidemia type: unspecified Qualified Code(s): E78.5 - Hyperlipidemia, unspecified Code(s): E78.5 - Hyperlipidemia, unspecified Status: Acute (12) Coronary artery disease: Code(s): I25.10 - Atherosclerotic heart disease of [place] coronary artery without angina pectoris Status: Acute (13) Acute on chronic diastolic (congestive) heart failure: Code(s): I50.33 - Acute on chronic diastolic (congestive) heart failure Status: Acute (14) Hyperkalemia: Code(s): E87.5 - Hyperkalemia Status: Acute (15) Lactic acidosis: Code(s): E87.2 - Acidosis Status: Acute (16) Metabolic encephalopathy: Code(s): G93.41 - Metabolic encephalopathy Status: Acute (17) Diabetes: Code(s): E11.9 - Type 2 diabetes mellitus without complications Status: Chronic (18) Hypertension: Code(s): I10 - Essential (primary) hypertension Status: Chronic Additional Plan 03/24/21 acute hypoxemic respiratory failure currently on 15L STAT ABG CXR w worsening infiltrated cover w broad specturm abx increase lasix GISELLE improving, nephro following BG near goal Lantus increased to BID pt continues to have periods of confusion/ delayed congnition consistent w metabolic encephalopathy am labs repeat CXR in am 03/25/21 remains on 15L now with non-rebreather mask on abx receiving lasix renal fxn stable BG at goal cxr today improving but oxygen requirements are not will perform CTA covid test continue current care if respiratory status fails to improve with diuretics and antibiotics will consult pulmonology Subjective Date/time seen: 03/25/21 11:59 patient now requiring non-rebreather mask along with 15 L high-flow, leukocytosis rising, no fever patient states that she feels unwell Exam Narrative: General: Pt is alert awake and in Mild respiratory distress noted to have increased work of breathing currently on 15 L HEENT: normocephalic atraumatic sclerae anicteric conjunctiva noninjected Lungs/Chest: Diminished breath sounds BS B/L, diffuse crackles Cardiac: RRR. Normal S1 S2. loud systolic murmur murmurs Abdomen: soft nontender nondistended Extremities: No clubbing, cyanosis left lower extremity edema chronic lymphedema reported as improved by patient Neurologic: Follows commands. AAOx3 with cognitive slowing Objective Data Vi
[2021-03-25] MEDS: INSULIN ASPART (*BKC) 100 UNITS/ML SUB-Q ×2 (12:02→18:10)
[2021-03-25 12:03] LABS: Glucose Point of Care 221 mg/dl (65-105)
[2021-03-25] MEDS: IPRATROPIUM BR 0.02% INH SOLN 0.5 MG/2.5 ML VIAL INHALATION ×2 (12:20→20:34)
--- NOTE | 2021-03-25 12:53 | PM.PNNEP ---
Progress Note: A&P Assessment and Plan (1) GISELLE (acute kidney injury): Code(s): N17.9 - Acute kidney failure, unspecified Status: Acute Assessment and Plan: back to baseline likely due to a combination of volume depletion and hypotension creatinine has fluctuated to extremes in the last few years BUN and creatinine better associated with better urine output at this time follow trend of repeat labs and UOP (2) Chronic kidney disease, stage IV (severe): Code(s): N18.4 - Chronic kidney disease, stage 4 (severe) Status: Chronic Assessment and Plan: baseline creatine averages around 2.0 - 2.7mg/dl thought to be secondary to her HTN, DM, cardiac/vascular disease and need for diuretics to maintain her volume status noted fluctuations in kidney function due to fluid status and diuretics (3) Acute and chronic respiratory failure with hypoxia: Code(s): J96.21 - Acute and chronic respiratory failure with hypoxia Status: Acute Assessment and Plan: currently on more than baseline oxygen requirements recent CXR results noted - pneumonia versus pulmonary edema versus both on diuretics and antibiotics follow serial CXRs (4) CHF (congestive heart failure): Qualifiers: Heart failure chronicity: acute on chronic Heart failure type: unspecified Qualified Code(s): I50.9 - Heart failure, unspecified Code(s): I50.9 - Heart failure, unspecified Status: Chronic Assessment and Plan: follows with Dr. Ritter despite valvular heart disease, deemed to high risk for surgical intervention diuretics have been resumed (5) Hypertension: Code(s): I10 - Essential (primary) hypertension Status: Chronic Assessment and Plan: hypotension resolved slowly reintroduce anti-HTN medications hold ARB in the setting of possible more aggressive diuresis and possible infectionee follow trend of hemodynamics (6) Diabetes: Code(s): E11.9 - Type 2 diabetes mellitus without complications Status: Chronic Assessment and Plan: DKA resolved follow accuchecks on SSI Will continue to follow. Subjective Date/time seen: 03/25/21 12:53 Respiratory status appears quite tenuous -- requiring non-rebreather mask/high flow oxygen to maintain oxygen saturations but still seems in mild distress and notes not feeling well ; on diuretics and antibiotic added yesterday as well and even though CXR looks a bit better, her breathing is not. Exam Narrative: General: WD/WN female in mild respiratory distress Heart: normal S1 and S2; no rub Lungs: coarse breath sounds with scattered craccklesf Abdomen: soft, nontender, nondistended, positive bowel sounds Extremities: no cyanosis or clubbing; no edema Skin: no rash or nodules Objective Data Vital Signs Vital Signs: Vital Signs Temp Pulse Resp BP Pulse Ox 03/25/21 12:00 65 03/25/21 11:46 36.2 C L 65 22 H 121/43 L 100 03/25/21 08:00 65 97 03/25/21 07:55 72 20 03/25/21 07:54 97 03/25/21 07:47 72 20 03/25/21 05:44 72 22 H 03/25/21 05:38 36.3 C L 66 18 138/49 L 100 03/25/21 04:08 63 03/25/21 02:16 72 22 H 03/25/21 02:08 71 22 H 03/25/21 00:00 63 03/24/21 22:00 36.3 C L 72 18 129/54 L 100 03/24/21 21:45 74 03/24/21 20:11 77 22 H 03/24/21 20:01 75 22 H 03/24/21 20:00 71 98 03/24/21 17:01 77 20 03/24/21 16:55 81 20 03/24/21 16:00 73 Intake/Output Intake/Output: Intake & Output 03/22/21 03/23/21 03/24/21 03/25/21 23:59 23:59 23:59 23:59 Intake Total 900 560 380 200 Output Total 1650 1150 Balance -750 -590 380 200 Meds/Results Medications: Active Medications Generic Name Dose Route Start Last Admin Trade Name Freq PRN Reason Stop Dose Admin Acetaminophen 650 mg 03/21/21 22:15 03/25/21 08:06 Acetaminophen 325 Mg Tablet
--- NOTE | 2021-03-25 12:53 | P.PNNP_ITS ---
Progress Note: A&P Assessment and Plan (1) GISELLE (acute kidney injury): Code(s): N17.9 - Acute kidney failure, unspecified Status: Acute Assessment and Plan: * back to baseline * likely due to a combination of volume depletion and hypotension * creatinine has fluctuated to extremes in the last few years * BUN and creatinine better associated with better urine output at this time * follow trend of repeat labs and UOP (2) Chronic kidney disease, stage IV (severe): Code(s): N18.4 - Chronic kidney disease, stage 4 (severe) Status: Chronic Assessment and Plan: * baseline creatine averages around 2.0 - 2.7mg/dl * thought to be secondary to her HTN, DM, cardiac/vascular disease and need for diuretics to maintain her volume status * noted fluctuations in kidney function due to fluid status and diuretics (3) Acute and chronic respiratory failure with hypoxia: Code(s): J96.21 - Acute and chronic respiratory failure with hypoxia Status: Acute Assessment and Plan: * currently on more than baseline oxygen requirements * recent CXR results noted - pneumonia versus pulmonary edema versus both * on diuretics and antibiotics * follow serial CXRs (4) CHF (congestive heart failure): Qualifiers: Heart failure chronicity: acute on chronic Heart failure type: unspecified Qualified Code(s): I50.9 - Heart failure, unspecified Code(s): I50.9 - Heart failure, unspecified Status: Chronic Assessment and Plan: * follows with Dr. Ritter * despite valvular heart disease, deemed to high risk for surgical intervention * diuretics have been resumed (5) Hypertension: Code(s): I10 - Essential (primary) hypertension Status: Chronic Assessment and Plan: * hypotension resolved * slowly reintroduce anti-HTN medications * hold ARB in the setting of possible more aggressive diuresis and possible infectionee * follow trend of hemodynamics (6) Diabetes: Code(s): E11.9 - Type 2 diabetes mellitus without complications Status: Chronic Assessment and Plan: * DKA resolved * follow accuchecks * on SSI Will continue to follow. Subjective Date/time seen: 03/25/21 12:53 Respiratory status appears quite tenuous -- requiring non-rebreather mask/high flow oxygen to maintain oxygen saturations but still seems in mild distress and notes not feeling well ; on diuretics and antibiotic added yesterday as well and even though CXR looks a bit better, her breathing is not. Exam Narrative: General: WD/WN female in mild respiratory distress Heart: normal S1 and S2; no rub Lungs: coarse breath sounds with scattered craccklesf Abdomen: soft, nontender, nondistended, positive bowel sounds Extremities: no cyanosis or clubbing; no edema Skin: no rash or nodules Objective Data Vital Signs Vital Signs: Vital Signs Temp Pulse Resp BP Pulse Ox 03/25/21 12:00 65 03/25/21 11:46 36.2 C L 65 22 H 121/43 L 100 03/25/21 08:00 65 97 03/25/21 07:55 72 20 03/25/21 07:54 97 03/25/21 07:47 72 20 03/25/21 05:44 72 22 H 03/25/21 05:38 36.3 C L 66 18 138/49 L 100 03/25/21 04:08 63 03/25/21 02:16 72 22 H 03/25/21 02:08 71 22 H 03/25/21 00:00 63 03/24/21 22:00 36.3 C L 72 18 129/54 L 10
--- NOTE | 2021-03-25 13:08 | PCOTNOTE ---
Attempted to see patient at 13:08 this date. Patient currently eating lunch.
[2021-03-25 15:11] LABS: EDCOVIDSCREEN Negative (Negative)
[2021-03-25 16:20] LABS: NT Pro B Type Natriuretic Pept > 35000 pg/mL (5-100)
[2021-03-25 18:13] LABS: Glucose Point of Care 388 mg/dl (65-105)
[2021-03-25] MEDS: rOPINIRole HCL 0.25 MG TABLET PO (20:56)
[2021-03-25 21:22] LABS: Glucose Point of Care 307 mg/dl (65-105)
[2021-03-26] VITALS (24 sets, daily range): BP systolic 131–146; BP diastolic 44–56; PULSE 57–88; RESP 18–19; TEMP 36.1–36.8; O2SAT 97–100
[2021-03-26] MEDS: ACETAMINOPHEN 325 MG TABLET 650 MG PO (00:02)
[2021-03-26] MEDS: ALBUTEROL SULFATE NEB 2.5 MG/0.5 ML INH INHALATION ×6 (00:10→20:07)
[2021-03-26] MEDS: IPRATROPIUM BR 0.02% INH SOLN 0.5 MG/2.5 ML VIAL INHALATION ×6 (00:10→20:07)
[2021-03-26 06:07] LABS: Basophils Absolute Auto 0.1 K/mm3 (0.0-0.1); Basophils Percent Auto 0.7 % (0.2-1.2); Eosinophils Absolute Auto 1.1 K/mm3 (0-0.3); Eosinophils Percent Auto 10.6 % (0-4.4); Hematocrit 25.5 % (37.0-47.0); Hemoglobin 7.9 g/dL (12.0-15.0); Immature Granulocyte Absolute 0.05 K/mm3 (0.00-0.031); Immature Granulocyte Percent A 0.5 % (0-0.5); Lymphocytes Absolute Auto 0.79 K/mm3 (0.9-3.2); Lymphocytes Percent Auto 7.5 % (18.3-44.2); Mean Corpuscular Hemoglobin 32.9 pg (26-34); Mean Corpuscular Volume 106.3 fl (80-100); Mean Platelet Volume 11.1 fl (7.4-10.4); Monocytes Percent Auto 9.5 % (2.6-8.5); Neutrophils Absolute Auto 7.5 K/mm3 (1.3-6.7); Neutrophils Percent Auto 71.2 % (45.5-73.1); Platelet Count Result 238 k/mm3 (150-375); Red Cell Distribution Width 15.6 % (11.5-14.5); White Blood Count 10.6 K/mm3 (4.5-10.0)
[2021-03-26 06:28] LABS: D Dimer 1.24 ug/mL (<0.48)
[2021-03-26 06:35] LABS: Anion Gap 5 mmol/L (8-16); Blood Urea Nitrogen 67 mg/dL (7-17); CRP 15.9 mg/dL (<1.0); Calcium 8.3 mg/dL (8.4-10.2); Carbon Dioxide 27 mmol/L (22-30); Chloride 101 mmol/L (98-107); Estimated CRCL calculation 19 ml/min; Estimated Glomerular Filt Rate 22; Glucose 247 mg/dL (65-110); Lactate Dehydrogenase 654 U/L (313-618); Potassium 4.8 mmol/L (3.4-5.0); Sodium 133 mmol/L (137-145)
[2021-03-26 07:50] LABS: Device HIGH FLOW NASAL CANN; Modified Allen's Test Pass
[2021-03-26] MEDS: ASPIRIN 81 MG ENTERIC TABLET PO (08:54)
[2021-03-26] MEDS: ASCORBIC ACID 500 MG TABLET 1000 MG PO (08:54)
[2021-03-26] MEDS: amLODIPine BESYLATE 5 MG TABLET 10 MG PO (08:54)
[2021-03-26] MEDS: THERAPEUTIC MULTIVITAMINS/MINERALS TAB (*BKC) 1 TABLET PO (08:54)
[2021-03-26] MEDS: ENOXAPARIN 30 MG/0.3 ML SYRINGE SUB-Q (08:54)
[2021-03-26] MEDS: MAGNESIUM OXIDE 200 MG TABLET PO ×2 (08:55→17:45)
[2021-03-26] MEDS: carvediloL 25 MG TABLET PO ×2 (08:55→20:34)
[2021-03-26] MEDS: FLUTICASONE PROPIONATE 0.05% NA SPR 16 GM BTL (*BKC) 2 SPRAY NASAL (08:55)
[2021-03-26] MEDS: ATORVASTATIN 40 MG TABLET PO (08:55)
[2021-03-26] MEDS: FUROSEMIDE 40 MG TABLET PO (08:55)
[2021-03-26] MEDS: FERROUS SULFATE 324 MG TABLET PO (08:55)
[2021-03-26] MEDS: INSULIN GLARGINE (*BKC) 100 UNITS/ML SUB-Q ×2 (08:55→17:50)
[2021-03-26] MEDS: INSULIN ASPART (*BKC) 100 UNITS/ML SUB-Q ×3 (08:56→17:51)
[2021-03-26 09:20] LABS: Glucose Point of Care 207 mg/dl (65-105)
[2021-03-26 11:44] LABS: Glucose Point of Care 231 mg/dl (65-105)
--- NOTE | 2021-03-26 12:21 | P.PNNP_ITS ---
Progress Note: A&P Assessment and Plan (1) GISELLE (acute kidney injury): Code(s): N17.9 - Acute kidney failure, unspecified Status: Acute Assessment and Plan: * back to baseline * likely due to a combination of volume depletion and hypotension * creatinine has fluctuated to extremes in the last few years * reasonable urine output at this time * follow trend of repeat labs and UOP (2) Chronic kidney disease, stage IV (severe): Code(s): N18.4 - Chronic kidney disease, stage 4 (severe) Status: Chronic Assessment and Plan: * baseline creatine averages around 2.0 - 2.7mg/dl * thought to be secondary to her HTN, DM, cardiac/vascular disease and need for diuretics to maintain her volume status * noted fluctuations in kidney function due to fluid status and diuretics (3) Acute and chronic respiratory failure with hypoxia: Code(s): J96.21 - Acute and chronic respiratory failure with hypoxia Status: Acute Assessment and Plan: * currently on more than baseline oxygen requirements * recent CXR results noted - pneumonia versus pulmonary edema versus both * on diuretics and antibiotics * follow serial CXRs * continue oxygen support (4) CHF (congestive heart failure): Qualifiers: Heart failure chronicity: acute on chronic Heart failure type: unspecified Qualified Code(s): I50.9 - Heart failure, unspecified Code(s): I50.9 - Heart failure, unspecified Status: Chronic Assessment and Plan: * follows with Dr. Ritter * despite valvular heart disease, deemed to high risk for surgical intervention * diuretics have been resumed (5) Hypertension: Code(s): I10 - Essential (primary) hypertension Status: Chronic Assessment and Plan: * hypotension resolved * slowly reintroduce anti-HTN medications * hold ARB in the setting of possible more aggressive diuresis and possible i nfection * follow trend of hemodynamics (6) Diabetes: Code(s): E11.9 - Type 2 diabetes mellitus without complications Status: Chronic Assessment and Plan: * DKA resolved * follow accuchecks * on SSI Will continue to follow. Subjective Date/time seen: 03/26/21 12:21 Still requiring a significant amount of oxygen support at this time but does not appear in any acute respiratory distress; admits to a dry cough but denies any other complaints; no acute distress voiced at the time of my visit; no other issues overnight or earlier this AM. Exam Narrative: General: WD/WN female in NAD Heart: normal S1 and S2; no rub Lungs: coarse breath sounds with scattered crackles Abdomen: soft, nontender, nondistended, positive bowel sounds Extremities: no cyanosis or clubbing; no edema Skin: warm and intact Objective Data Vital Signs Vital Signs: Vital Signs Temp Pulse Resp BP Pulse Ox 03/26/21 12:00 62 03/26/21 08:55 68 03/26/21 08:19 84 18 03/26/21 08:10 82 18 03/26/21 08:00 62 03/26/21 05:05 36.1 C L 60 18 134/44 L 100 03/26/21 04:56 98 03/26/21 04:28 88 03/26/21 04:20 80 03/26/21 04:00 57 L 03/26/21 02:48 97 03/26/21 00:18 88 19 03/26/21 00:07 86 19 03/26/21 00:00 65 03/25/21 21:14 36.4 C 62 18 125/49 L 100 03/25/21 21:00
--- NOTE | 2021-03-26 12:21 | PM.PNNEP ---
Progress Note: A&P Assessment and Plan (1) GISELLE (acute kidney injury): Code(s): N17.9 - Acute kidney failure, unspecified Status: Acute Assessment and Plan: back to baseline likely due to a combination of volume depletion and hypotension creatinine has fluctuated to extremes in the last few years reasonable urine output at this time follow trend of repeat labs and UOP (2) Chronic kidney disease, stage IV (severe): Code(s): N18.4 - Chronic kidney disease, stage 4 (severe) Status: Chronic Assessment and Plan: baseline creatine averages around 2.0 - 2.7mg/dl thought to be secondary to her HTN, DM, cardiac/vascular disease and need for diuretics to maintain her volume status noted fluctuations in kidney function due to fluid status and diuretics (3) Acute and chronic respiratory failure with hypoxia: Code(s): J96.21 - Acute and chronic respiratory failure with hypoxia Status: Acute Assessment and Plan: currently on more than baseline oxygen requirements recent CXR results noted - pneumonia versus pulmonary edema versus both on diuretics and antibiotics follow serial CXRs continue oxygen support (4) CHF (congestive heart failure): Qualifiers: Heart failure chronicity: acute on chronic Heart failure type: unspecified Qualified Code(s): I50.9 - Heart failure, unspecified Code(s): I50.9 - Heart failure, unspecified Status: Chronic Assessment and Plan: follows with Dr. Ritter despite valvular heart disease, deemed to high risk for surgical intervention diuretics have been resumed (5) Hypertension: Code(s): I10 - Essential (primary) hypertension Status: Chronic Assessment and Plan: hypotension resolved slowly reintroduce anti-HTN medications hold ARB in the setting of possible more aggressive diuresis and possible infection follow trend of hemodynamics (6) Diabetes: Code(s): E11.9 - Type 2 diabetes mellitus without complications Status: Chronic Assessment and Plan: DKA resolved follow accuchecks on SSI Will continue to follow. Subjective Date/time seen: 03/26/21 12:21 Still requiring a significant amount of oxygen support at this time but does not appear in any acute respiratory distress; admits to a dry cough but denies any other complaints; no acute distress voiced at the time of my visit; no other issues overnight or earlier this AM. Exam Narrative: General: WD/WN female in NAD Heart: normal S1 and S2; no rub Lungs: coarse breath sounds with scattered crackles Abdomen: soft, nontender, nondistended, positive bowel sounds Extremities: no cyanosis or clubbing; no edema Skin: warm and intact Objective Data Vital Signs Vital Signs: Vital Signs Temp Pulse Resp BP Pulse Ox 03/26/21 12:00 62 03/26/21 08:55 68 03/26/21 08:19 84 18 03/26/21 08:10 82 18 03/26/21 08:00 62 03/26/21 05:05 36.1 C L 60 18 134/44 L 100 03/26/21 04:56 98 03/26/21 04:28 88 03/26/21 04:20 80 03/26/21 04:00 57 L 03/26/21 02:48 97 03/26/21 00:18 88 19 03/26/21 00:07 86 19 03/26/21 00:00 65 03/25/21 21:14 36.4 C 62 18 125/49 L 100 03/25/21 21:00 67 03/25/21 20:56 65 03/25/21 20:42 84 20 03/25/21 20:36 85 19 03/25/21 20:35 97 03/25/21 20:00 62 18 100 Intake/Output Intake/Output: Intake & Output 03/23/21 03/24/21 03/25/21 03/26/21 23:59 23:59 23:59 23:59 Intake Total 560 380 840 900 Output Total 1150 Balance -590 380 840 900 Meds/Results Medications: Active Medications Generic Name Dose Route Start Last Admin Trade Name Kadie PRN Reason Stop Dose Admin Acetaminophen 650 mg 03/21/21 22:15 03/26/21 00:02 Acetaminophen 325 Mg Tablet PO 650 mg Q6H PRN Administration Mild Pain (1-3) or Fever Albuterol 2.5 mg
--- NOTE | 2021-03-26 15:03 | PM.IMPN ---
Progress Note: A&P Assessment and Plan (1) DKA (diabetic ketoacidosis): Code(s): E11.10 - Type 2 diabetes mellitus with ketoacidosis without coma Status: Acute (2) Hypoglycemia: Code(s): E16.2 - Hypoglycemia, unspecified Status: Acute (3) Hypotension: Qualifiers: Hypotension type: unspecified hypotension type Qualified Code(s): I95.9 - Hypotension, unspecified Code(s): I95.9 - Hypotension, unspecified Status: Acute (4) Bradycardia: Code(s): R00.1 - Bradycardia, unspecified Status: Acute (5) Acute and chronic respiratory failure with hypoxia: Code(s): J96.21 - Acute and chronic respiratory failure with hypoxia Status: Acute (6) Acute on chronic diastolic heart failure: Code(s): I50.33 - Acute on chronic diastolic (congestive) heart failure Status: Acute (7) CHF (congestive heart failure): Qualifiers: Heart failure chronicity: acute on chronic Heart failure type: unspecified Qualified Code(s): I50.9 - Heart failure, unspecified Code(s): I50.9 - Heart failure, unspecified Status: Chronic (8) Chronic kidney disease, stage IV (severe): Code(s): N18.4 - Chronic kidney disease, stage 4 (severe) Status: Chronic (9) Elevated troponin: Code(s): R77.8 - Other specified abnormalities of plasma proteins Status: Acute (10) Moderate aortic stenosis: Code(s): I35.0 - Nonrheumatic aortic (valve) stenosis Status: Acute (11) Hyperlipidemia: Qualifiers: Hyperlipidemia type: unspecified Qualified Code(s): E78.5 - Hyperlipidemia, unspecified Code(s): E78.5 - Hyperlipidemia, unspecified Status: Acute (12) Coronary artery disease: Code(s): I25.10 - Atherosclerotic heart disease of hughes coronary artery without angina pectoris Status: Acute (13) Acute on chronic diastolic (congestive) heart failure: Code(s): I50.33 - Acute on chronic diastolic (congestive) heart failure Status: Acute (14) Hyperkalemia: Code(s): E87.5 - Hyperkalemia Status: Acute (15) Lactic acidosis: Code(s): E87.2 - Acidosis Status: Acute (16) Metabolic encephalopathy: Code(s): G93.41 - Metabolic encephalopathy Status: Acute (17) Diabetes: Code(s): E11.9 - Type 2 diabetes mellitus without complications Status: Chronic (18) Hypertension: Code(s): I10 - Essential (primary) hypertension Status: Chronic Additional Plan 03/24/21 acute hypoxemic respiratory failure currently on 15L STAT ABG CXR w worsening infiltrated cover w broad specturm abx increase lasix GISELLE improving, nephro following BG near goal Lantus increased to BID pt continues to have periods of confusion/ delayed congnition consistent w metabolic encephalopathy am labs repeat CXR in am 03/25/21 remains on 15L now with non-rebreather mask on abx receiving lasix renal fxn stable BG at goal cxr today improving but oxygen requirements are not will perform CTA covid test continue current care if respiratory status fails to improve with diuretics and antibiotics will consult pulmonology 03/26/21 O2 down to 10L w NRB cont abx cont lasix nephrology following CTA unable to be performed d/t renal fxn V/Q scan unable to be performed d/t pulm HTN per Radiology D dimer is elevated but lower than previously drawn when pt had COVID consult Dr Langston for recs regarding anticoagulation and ongoing management of resp failure case presented to him briefly this am am labs Subjective Date/time seen: 03/26/21 15:03 pt doing ok remains on HFNC down to 10L, multiple daughters of pt calling requesting information about Mine. I have advised staff it is a HIPPA violation to give out pt information when pt is alert oriented and has decision making capacity, unless they specifically request family be contacted. Speaking with Mine castellon
--- NOTE | 2021-03-26 16:22 | PM.CNPUL ---
Assessment and Plan Assessment and plan (1) Acute and chronic respiratory failure with hypoxia: Code(s): J96.21 - Acute and chronic respiratory failure with hypoxia Status: Acute Assessment and Plan: Patient with worsening hypoxic respiratory failure now requiring 10 L nasal cannula 15 L non-rebreather mask. Patient had a CT scan of the chest on 03/25/2021 demonstrating diffuse patchy interstitial and alveolar infiltrates with areas of consolidation consistent with post COVID interstitial lung disease-organizing pneumonia with without bacterial pneumonia and/or fluid overload. blood cultures are negative from 03/20/2021. Patient had a rapid COVID antigen test on 03/25 is negative. I will send the COVID RT PCR study. I will send influenza swab to exclude influenza. Patient is currently being treated for healthcare associated pneumonia with vancomycin and cefepime since 03/24/2020, diuresis is limited by her chronic renal insufficiency and she is on Lasix 40 p.o. bid. At this time I would like to continue vancomycin and cefepime for 1 additional day. I will repeat a chest x-ray in the morning and follow her oxygenation. If there is no significant improvement, I will consider treating post COVID interstitial lung disease -organizing pneumonia with glucocorticoids As has been reported in a few case reports series ( [employer] [place] [employer], volume 18, 5. , page [phone] and the resilient Journal of Infectious Disease 2021:21 (1) [id number]. Patient is currently on albuterol and ipratropium nebulizers and she is not wheezing at this time. Will continue. lower extremity Dopplers are negative for DVT. I would not systemically anticoagulate this patient at this time and would continue Lovenox 30 mg subcu q.day. Will repeat echocardiogram. Discussed with Deisy Reaves History of Present Illness History of Present Illness Consult date: 03/26/21 Reason for consult: hypoxemia Chief complaint: DKA Narrative: 70-year-old woman with a history of congestive heart failure, hypertension, hyperlipidemia, diabetes, obstructive sleep apnea on CPAP with aortic stenosis and mitral regurgitation who developed respiratory distress with diffuse interstitial infiltrates requiring noninvasive ventilation at [facility] on 01/27/2021. Patient was listed to be transferred to [facility] given her history of aortic stenosis and mitral valve regurgitation with a possible surgery on 02/09/2021. After listing this transfer patient COVID test came back positive and she was transferred to [facility] on 01/28/2021. Treatment at [facility] is not known at this time but her cardiothoracic surgery was canceled. And note says that patient required high-flow nasal cannula oxygen during the day and CPAP at night. Patient was eventually discharged to [facility] and then transferred to [facility] on 03/12/2021. patient was altered mentally transferred to [facility] on 03/20/2020 with DKA, chest x-ray with diffuse interstitial alveolar infiltrates bilaterally and she required 3 L nasal cannula oxygen. On patient has developed progressive hypoxemic respiratory failure requiring 4 L on 03/21, 5 L on 03/23 and 10 L later in the day on 03/23. 15 L plus 15 L non-rebreather on 03/24. On 03/25 she is on 10 L plus 15 L non-rebreather with saturations 100%. Patient had an ABG on 03 24 with pH of 7.45/36/118. Patient was started on cefepime and vancomycin on 03/24. CT scan of the chest on 03/25 demonstrated diffuse bilateral patchy interstitial alveolar infiltrates with areas of consolidation consistent with post COVID pneumonia. On 11/22 patient had a rapid COVID antigen test that was negative. Patient has been on Lasix 40 p.o. b.i.d. since 03/22/2020. In's and out's are not Recorded. BNP is greater than 35,000 on 03/25. Creatinine is 2.10 on 03/25 improved from 2.8 on admission on 03/20 and
[2021-03-26 17:19] LABS: Procalcitonin 0.7 ng/mL
[2021-03-26 17:21] LABS: SARS-CoV-2 RNA PCR Negative
[2021-03-26] MEDS: FUROSEMIDE INJ 40 MG/4 ML VIAL IV PUSH (17:50)
[2021-03-26 18:01] LABS: Glucose Point of Care 236 mg/dl (65-105)
[2021-03-26] MEDS: rOPINIRole HCL 0.25 MG TABLET PO (20:35)
[2021-03-26 20:36] LABS: Glucose Point of Care 329 mg/dl (65-105)
[2021-03-26] MEDS: INSULIN ASPART (*BKC) 100 UNITS/ML 6 UNITS SUB-Q (23:07)
[2021-03-27] VITALS (25 sets, daily range): BP systolic 123–149; BP diastolic 45–62; PULSE 61–98; RESP 16–20; TEMP 36.1–36.6; O2SAT 93–100
--- NOTE | 2021-03-27 | ECHO_ITS ---
Patient Info Name: Mine Dwyer Age: 70 years : 1950 Gender: Female Ht: 64 in Wt: 129 lbs BSA: 1.63 m2 HR: 72 bpm BP: 124 / 48 mmHg Heart Rhythm: Sinus Rhythm Exam Date: 03/27/2021 10:18 AM Exam Location: [facility] Patient Status: Inpatient Admit Date: 03/20/2021 Staff Ordering Physician: Deisy Reaves MD Director Long Term Care: Saqib Villavicencio RDCS, RT Attending Provider: Deisy Reaves MD Referring Physician: Jelly HERNANDEZ; Exam Type: CA echo dop color flow w con Study Info Indications I50.9 - Heart failure, unspecified Complete two-dimensional, color flow and Doppler transthoracic echocardiogram is performed with contrast to opacify the left ventricle and to improve the deliniation of the left ventricle endocardial borders. Strain analysis performed. Summary 1. There is moderate concentric increased left ventricular wall thickness. 2. Left ventricular systolic function is normal, estimated at 50-55%. 3. Left atrial chamber dimension is moderately enlarged. 4. There is moderate to severe aortic valve stenosis with a peak velocity of 384.21 cm/s, mean gradient of 35 mmHg, and aortic valve area of 1.17 cm2. 5. There is trace aortic valve regurgitation. 6. Severe pulmonary hypertension, estimated pulmonary arterial systolic pressure is 113 mmHg. 7. AUGUSTIN is slightly larger than was calculated on exam from Jan 2021. No other change. Left Ventricle Left ventricular chamber dimension is mildly enlarged. Left ventricular systolic function is normal, estimated at 50-55%. There is moderate concentric increased left ventricular wall thickness. The left ventricular diastolic function is grade I diastolic dysfunction. Right Ventricle Right ventricular chamber dimension is normal. Left Atria Left atrial chamber dimension is moderately enlarged. Right Atria Right atrial chamber dimension is mildly enlarged. Aortic Valve The aortic valve is trileaflet. There is moderate aortic valve sclerosis. There is moderate to severe aortic valve stenosis with a peak velocity of 384.21 cm/s, mean gradient of 35 mmHg, and aortic valve area of 1.17 cm2. There is trace aortic valve regurgitation. Pulmonic Valve The pulmonic valve is normal. There is trace pulmonic regurgitation. Mitral Valve The mitral valve has normal leaflets. There is trace mitral valve regurgitation. Tricuspid Valve The tricuspid valve leaflets are normal. There is mild tricuspid valve regurgitation. Severe pulmonary hypertension, estimated pulmonary arterial systolic pressure is 113 mmHg. Pericardium/Pleural The pericardium appears normal. Aorta The aortic root size at the sinus of Valsalva is normal. Left Ventricular Outflow Tract Name Value Normal LVOT 2D LVOT Diameter 1.98 cm LVOT Doppler LVOT Peak Gradient 6 mmHg LVOT Mean Gradient 4 mmHg LVOT VTI 34.14 cm LVOT VTI/AV VTI Ratio 0.38 LVOT Stroke Volume 104.61 ml LVOT CO 6.85 l/min
[2021-03-27] MEDS: IPRATROPIUM BR 0.02% INH SOLN 0.5 MG/2.5 ML VIAL INHALATION ×6 (00:35→20:09)
[2021-03-27] MEDS: ALBUTEROL SULFATE NEB 2.5 MG/0.5 ML INH INHALATION ×6 (00:35→20:09)
[2021-03-27 06:36] LABS: Basophils Absolute Auto 0.1 K/mm3 (0.0-0.1); Basophils Percent Auto 0.7 % (0.2-1.2); Eosinophils Absolute Auto 1.4 K/mm3 (0-0.3); Eosinophils Percent Auto 13.2 % (0-4.4); Hematocrit 24.1 % (37.0-47.0); Hemoglobin 7.4 g/dL (12.0-15.0); Immature Granulocyte Absolute 0.03 K/mm3 (0.00-0.031); Immature Granulocyte Percent A 0.3 % (0-0.5); Lymphocytes Absolute Auto 0.87 K/mm3 (0.9-3.2); Lymphocytes Percent Auto 8.5 % (18.3-44.2); Mean Corpuscular HGB Conc 30.7 g/dl (32-36); Mean Corpuscular Hemoglobin 32.7 pg (26-34); Mean Corpuscular Volume 106.6 fl (80-100); Mean Platelet Volume 10.9 fl (7.4-10.4); Monocytes Absolute Auto 1.2 K/mm3 (0.1-0.6); Monocytes Percent Auto 11.9 % (2.6-8.5); Neutrophils Absolute Auto 6.7 K/mm3 (1.3-6.7); Neutrophils Percent Auto 65.4 % (45.5-73.1); Platelet Count Result 252 k/mm3 (150-375); Red Blood Count 2.26 M/mm3 (4.2-5.4); Red Cell Distribution Width 15.4 % (11.5-14.5); White Blood Count 10.2 K/mm3 (4.5-10.0)
[2021-03-27 06:53] LABS: Anion Gap 4 mmol/L (8-16); Blood Urea Nitrogen 69 mg/dL (7-17); CRP 6.8 mg/dL (<1.0); Calcium 8.6 mg/dL (8.4-10.2); Carbon Dioxide 28 mmol/L (22-30); Chloride 103 mmol/L (98-107); Estimated CRCL calculation 19 ml/min; Estimated Glomerular Filt Rate 22; Glucose 122 mg/dL (65-110); Magnesium 2.4 mg/dL (1.6-2.3); Potassium 4.4 mmol/L (3.4-5.0); Sodium 135 mmol/L (137-145)
[2021-03-27 06:58] LABS: NT Pro B Type Natriuretic Pept > 35000 pg/mL (5-100)
[2021-03-27 07:40] LABS: Glucose Point of Care 137 mg/dl (65-105)
[2021-03-27] MEDS: FLUTICASONE PROPIONATE 0.05% NA SPR 16 GM BTL (*BKC) 2 SPRAY NASAL (08:54)
[2021-03-27] MEDS: carvediloL 25 MG TABLET PO ×2 (08:55→21:59)
[2021-03-27] MEDS: ENOXAPARIN 30 MG/0.3 ML SYRINGE SUB-Q (08:55)
[2021-03-27] MEDS: THERAPEUTIC MULTIVITAMINS/MINERALS TAB (*BKC) 1 TABLET PO (08:55)
[2021-03-27] MEDS: MAGNESIUM OXIDE 200 MG TABLET PO ×2 (08:55→16:49)
[2021-03-27] MEDS: ATORVASTATIN 40 MG TABLET PO (08:55)
[2021-03-27] MEDS: FERROUS SULFATE 324 MG TABLET PO (08:55)
[2021-03-27] MEDS: calcitrioL 0.25 MCG CAPSULE PO (08:55)
[2021-03-27] MEDS: ASCORBIC ACID 500 MG TABLET 1000 MG PO (08:55)
[2021-03-27] MEDS: amLODIPine BESYLATE 5 MG TABLET 10 MG PO (08:55)
[2021-03-27] MEDS: ASPIRIN 81 MG ENTERIC TABLET PO (08:55)
[2021-03-27] MEDS: FUROSEMIDE INJ 40 MG/4 ML VIAL IV PUSH ×2 (08:55→16:49)
[2021-03-27] MEDS: INSULIN GLARGINE (*BKC) 100 UNITS/ML SUB-Q ×2 (08:56→16:43)
[2021-03-27] MEDS: PERFLUTREN LIPID MICROSPHERES 1.5 ML VIAL DILUTED TO 10 ML TOTAL VOLUME IV PUSH (10:28)
--- NOTE | 2021-03-27 10:29 | IVDEFINITY ---
Prior to administration of IV Definity the patient was educated on the risks and benefits of the imaging enhancing agent including potential adverse side effects. The patient verbalized understanding. Allergies were verified. No exclusion criteria were identified and at least one of the following inclusion criteria were met: 1) physician request, 2) patient technically difficult to image (per the [employer] Echocardiography guidelines of two or more segments not discernable within the apical view), or 3) questionable left ventricular function. ?
--- NOTE | 2021-03-27 10:32 | PM.PNPUL ---
Progress Note: A&P Assessment and Plan (1) Acute and chronic respiratory failure with hypoxia: Code(s): J96.21 - Acute and chronic respiratory failure with hypoxia Status: Acute Assessment and Plan: 03/26 Patient with worsening hypoxic respiratory failure now requiring 10 L nasal cannula 15 L non-rebreather mask. Patient had a CT scan of the chest on 03/25/2021 demonstrating diffuse patchy interstitial and alveolar infiltrates with areas of consolidation consistent with post COVID interstitial lung disease-organizing pneumonia with without bacterial pneumonia and/or fluid overload. blood cultures are negative from 03/20/2021. Patient had a rapid COVID antigen test on 03/25 is negative. I will send the COVID RT PCR study. I will send influenza swab to exclude influenza. Patient is currently being treated for healthcare associated pneumonia with vancomycin and cefepime since 03/24/2020, diuresis is limited by her chronic renal insufficiency and she is on Lasix 40 p.o. bid. At this time I would like to continue vancomycin and cefepime for 1 additional day. I will repeat a chest x-ray in the morning and follow her oxygenation. If there is no significant improvement, I will consider treating post COVID interstitial lung disease -organizing pneumonia with glucocorticoids As has been reported in a few case reports series (Annals of the [place] thoracic society, volume 18, 5. , page [phone] and The [place] Journal of Infectious Disease 2021:21 (6) [id number]). Patient is currently on albuterol and ipratropium nebulizers and she is not wheezing at this time. Will continue. lower extremity Dopplers are negative for DVT. I would not systemically anticoagulate this patient at this time and would continue Lovenox 30 mg subcu q.day. Will repeat echocardiogram. COVID RT PCR test was negative. Patient was given Lasix 40 IV b.i.d. 03/27 the patient tells me she is breathing better today. Currently the patient is on 12 L high-flow nasal cannula with saturations 94%. Chest x-ray with unchanged diffuse bilateral interstitial alveolar infiltrates. White blood cell count is 10.2, creatinine is 2.2. Eyes and nose are not recorded but her weight has decreased from 58.8 yesterday to 58.2 today. Lower extremity Dopplers are negative. She has stabilized or improved with broad-spectrum antibiotics and Lasix and will continue these treatments today. If no continued improvement we will consider steroids for post COVID interstitial lung disease -organizing pneumonia. Discussed with Deisy Reaves. Will follow with you. Subjective Date/time seen: 03/27/21 10:32 Interval history: 03/26 This is a new pulmonary consult for hypoxemic respiratory failure. 70-year-old woman with a history of congestive heart failure, hypertension, hyperlipidemia, diabetes, obstructive sleep apnea on CPAP, with aortic stenosis and mitral regurgitation who developed respiratory distress with diffuse interstitial infiltrates requiring noninvasive ventilation at [facility] on 01/27/2021. Patient was listed to be [facility] given her history of aortic stenosis and mitral valve regurgitation with a possible surgical AVR on 02/09/2021. On 01/28/2021 she had wore noninvasive ventilation with a VATS at 100% FiO2 and was transitioned to 15 L high-flow nasal cannula after diuresis. After listing this transfer patient COVID test came back positive and she was transferred to [facility] on 01/28/2021. Treatment at [facility] is not known at this time but her cardiothoracic surgery was canceled. Note says that patient required high-flow nasal cannula oxygen during the day and CPAP at night. Patient was eventually discharged to [facility] and then transferred to [facility] on 03/12/2021. On reviewing the notes on 03/13 the patient was on 5 L nasal cannula saturations 100%. It appears she stayed on 5 L nasal cannula through
--- NOTE | 2021-03-27 11:13 | PCNFU ---
Nutrition Follow-Up Complete: Inadequate oral intake on admit as related to DKA as evidenced by limited po intake reported. Goal: Adequate Intake of at least 75% of meals/supplements Patient is progressing towards goal. We will continue current goal. Pt current nutrition is DBCC with Glucerna shakes BID. Last recorded weight is 58.2 kg, down from 61.5 kg on admit. Bowel Motility:+BM reported 03/25 Labs Reviewed:Glu 122, BUN 69, Na 135, Hct 24.1,Hgb 7.4 Meds Noted:Lovenox, Coreg,Vit C, Rocaltrol, Mag-ox, Atrovent, Lantus, MVI, Norvasc, Lipitor Skin:WNL Additional Notes: Patient remains on a DBCC diet. Oral Intake 25% of most meals. O2 requirements have increased, current on 12 Liters High Flow O2. Diet supplements of Glucerna shakes are providing an additional 220 kcals and 10 gms protein. Agree with diet orders. Monitoring: RD will monitor every 3 days.
[2021-03-27 11:30] LABS: Glucose Point of Care 250 mg/dl (65-105)
[2021-03-27] MEDS: INSULIN ASPART (*BKC) 100 UNITS/ML SUB-Q ×2 (11:48→16:45)
--- NOTE | 2021-03-27 12:14 | P.PNNP_ITS ---
Progress Note: A&P Assessment and Plan (1) GISELLE (acute kidney injury): Code(s): N17.9 - Acute kidney failure, unspecified Status: Acute Assessment and Plan: * renal function back to baseline * likely due to a combination of volume depletion and hypotension on admission * creatinine has fluctuated to extremes in the last few years * reasonable urine output at this time * follow trend of repeat labs and UOP (2) Chronic kidney disease, stage IV (severe): Code(s): N18.4 - Chronic kidney disease, stage 4 (severe) Status: Chronic Assessment and Plan: * baseline creatine averages around 2.0 - 2.7mg/dl * thought to be secondary to her HTN, DM, cardiac/vascular disease and need for diuretics to maintain her volume status * noted fluctuations in kidney function due to fluid status and necessity of diuretics (3) Acute and chronic respiratory failure with hypoxia: Code(s): J96.21 - Acute and chronic respiratory failure with hypoxia Status: Acute Assessment and Plan: * currently on more than baseline oxygen requirements * recent CXR results noted - pneumonia versus pulmonary edema versus both * on diuretics and antibiotics * follow serial CXRs * continue oxygen support * Pulmonary recommendations noted (4) CHF (congestive heart failure): Qualifiers: Heart failure chronicity: acute on chronic Heart failure type: unspecified Qualified Code(s): I50.9 - Heart failure, unspecified Code(s): I50.9 - Heart failure, unspecified Status: Chronic Assessment and Plan: * follows with Dr. Ritter * despite valvular heart disease, deemed to high risk for surgical intervention * diuretics have been resumed (5) Hypertension: Code(s): I10 - Essential (primary) hypertension Status: Chronic Assessment and Plan: * hypotension resolved * slowly reintroduce anti-HTN medications * hold ARB in the setting of possible more aggressive diuresis and possible infection * follow trend of hemodynamics (6) Anemia: Code(s): D64.9 - Anemia, unspecified Status: Chronic Assessment and Plan: * due to CKD and acute illness * empirically start Epogen * hold of on checking iron studies as would give venofer in the context of active infection... (7) Diabetes: Code(s): E11.9 - Type 2 diabetes mellitus without complications Status: Chronic Assessment and Plan: * DKA resolved * follow accuchecks * on SSI Will continue to follow. Subjective Date/time seen: 03/27/21 12:14 She states she feels her breathing is doing a bit better today although she still has significant oxygen requirements; CXR looks about the same (no worse but no better); tolerating current therapy of diuretics + antibiotics; no acute distress voiced on my visit; no issues/events overnight or earlier this AM. Exam Narrative: General: WD/WN female in NAD Heart: normal S1 and S2; no rub Lungs: coarse breath sounds with scattered crackles Abdomen: soft, nontender, nondistended, positive bowel sounds Extremities: no cyanosis or clubbing; no edema Skin: warm and intact Objective Data Vital Signs Vital Signs: Vital Signs Temp Pulse Resp BP Pulse Ox 03/27/21 12:00 71 03/27/21 11:59 71 20 03/27/21 08:55 98 03/27/21 08:50 94 03/27/21 08:48 74 20
--- NOTE | 2021-03-27 12:14 | PM.PNNEP ---
Progress Note: A&P Assessment and Plan (1) GISELLE (acute kidney injury): Code(s): N17.9 - Acute kidney failure, unspecified Status: Acute Assessment and Plan: renal function back to baseline likely due to a combination of volume depletion and hypotension on admission creatinine has fluctuated to extremes in the last few years reasonable urine output at this time follow trend of repeat labs and UOP (2) Chronic kidney disease, stage IV (severe): Code(s): N18.4 - Chronic kidney disease, stage 4 (severe) Status: Chronic Assessment and Plan: baseline creatine averages around 2.0 - 2.7mg/dl thought to be secondary to her HTN, DM, cardiac/vascular disease and need for diuretics to maintain her volume status noted fluctuations in kidney function due to fluid status and necessity of diuretics (3) Acute and chronic respiratory failure with hypoxia: Code(s): J96.21 - Acute and chronic respiratory failure with hypoxia Status: Acute Assessment and Plan: currently on more than baseline oxygen requirements recent CXR results noted - pneumonia versus pulmonary edema versus both on diuretics and antibiotics follow serial CXRs continue oxygen support Pulmonary recommendations noted (4) CHF (congestive heart failure): Qualifiers: Heart failure chronicity: acute on chronic Heart failure type: unspecified Qualified Code(s): I50.9 - Heart failure, unspecified Code(s): I50.9 - Heart failure, unspecified Status: Chronic Assessment and Plan: follows with Dr. Ritter despite valvular heart disease, deemed to high risk for surgical intervention diuretics have been resumed (5) Hypertension: Code(s): I10 - Essential (primary) hypertension Status: Chronic Assessment and Plan: hypotension resolved slowly reintroduce anti-HTN medications hold ARB in the setting of possible more aggressive diuresis and possible infection follow trend of hemodynamics (6) Anemia: Code(s): D64.9 - Anemia, unspecified Status: Chronic Assessment and Plan: due to CKD and acute illness empirically start Epogen hold of on checking iron studies as would give venofer in the context of active infection... (7) Diabetes: Code(s): E11.9 - Type 2 diabetes mellitus without complications Status: Chronic Assessment and Plan: DKA resolved follow accuchecks on SSI Will continue to follow. Subjective Date/time seen: 03/27/21 12:14 She states she feels her breathing is doing a bit better today although she still has significant oxygen requirements; CXR looks about the same (no worse but no better); tolerating current therapy of diuretics + antibiotics; no acute distress voiced on my visit; no issues/events overnight or earlier this AM. Exam Narrative: General: WD/WN female in NAD Heart: normal S1 and S2; no rub Lungs: coarse breath sounds with scattered crackles Abdomen: soft, nontender, nondistended, positive bowel sounds Extremities: no cyanosis or clubbing; no edema Skin: warm and intact Objective Data Vital Signs Vital Signs: Vital Signs Temp Pulse Resp BP Pulse Ox 03/27/21 12:00 71 03/27/21 11:59 71 20 03/27/21 08:55 98 03/27/21 08:50 94 03/27/21 08:48 74 20 03/27/21 08:29 100 03/27/21 08:28 66 20 03/27/21 08:00 71 03/27/21 04:55 36.6 C 64 18 124/48 L 100 03/27/21 04:15 70 18 03/27/21 04:05 70 18 100 03/27/21 04:00 61 03/27/21 00:45 68 18 03/27/21 00:35 68 18 100 03/27/21 00:00 63 03/26/21 20:34 69 03/26/21 20:22 36.6 C 69 18 146/55 H 100 03/26/21 20:20 68 18 03/26/21 20:10 68 18 100 03/26/21 20:00 69 18 100 Intake/Output Intake/Output: Intake & Output 03/24/21 03/25/21 03/26/21 03/27/21 23:59 23:59 23:59 23:59 Intake Total 291 651 [id number] 6
[2021-03-27] MEDS: ACETAMINOPHEN 325 MG TABLET 650 MG PO (13:45)
--- NOTE | 2021-03-27 15:30 | PM.IMPN ---
Progress Note: A&P Assessment and Plan (1) DKA (diabetic ketoacidosis): Code(s): E11.10 - Type 2 diabetes mellitus with ketoacidosis without coma Status: Acute (2) Hypoglycemia: Code(s): E16.2 - Hypoglycemia, unspecified Status: Acute (3) Hypotension: Qualifiers: Hypotension type: unspecified hypotension type Qualified Code(s): I95.9 - Hypotension, unspecified Code(s): I95.9 - Hypotension, unspecified Status: Acute (4) Bradycardia: Code(s): R00.1 - Bradycardia, unspecified Status: Acute (5) Acute and chronic respiratory failure with hypoxia: Code(s): J96.21 - Acute and chronic respiratory failure with hypoxia Status: Acute (6) Acute on chronic diastolic heart failure: Code(s): I50.33 - Acute on chronic diastolic (congestive) heart failure Status: Acute (7) CHF (congestive heart failure): Qualifiers: Heart failure chronicity: acute on chronic Heart failure type: unspecified Qualified Code(s): I50.9 - Heart failure, unspecified Code(s): I50.9 - Heart failure, unspecified Status: Chronic (8) Chronic kidney disease, stage IV (severe): Code(s): N18.4 - Chronic kidney disease, stage 4 (severe) Status: Chronic (9) Elevated troponin: Code(s): R77.8 - Other specified abnormalities of plasma proteins Status: Acute (10) Moderate aortic stenosis: Code(s): I35.0 - Nonrheumatic aortic (valve) stenosis Status: Acute (11) Hyperlipidemia: Qualifiers: Hyperlipidemia type: unspecified Qualified Code(s): E78.5 - Hyperlipidemia, unspecified Code(s): E78.5 - Hyperlipidemia, unspecified Status: Acute (12) Coronary artery disease: Code(s): I25.10 - Atherosclerotic heart disease of [place] coronary artery without angina pectoris Status: Acute (13) Acute on chronic diastolic (congestive) heart failure: Code(s): I50.33 - Acute on chronic diastolic (congestive) heart failure Status: Acute (14) Hyperkalemia: Code(s): E87.5 - Hyperkalemia Status: Acute (15) Lactic acidosis: Code(s): E87.2 - Acidosis Status: Acute (16) Metabolic encephalopathy: Code(s): G93.41 - Metabolic encephalopathy Status: Acute (17) Diabetes: Code(s): E11.9 - Type 2 diabetes mellitus without complications Status: Chronic (18) Hypertension: Code(s): I10 - Essential (primary) hypertension Status: Chronic Additional Plan 03/24/21 acute hypoxemic respiratory failure currently on 15L STAT ABG CXR w worsening infiltrated cover w broad specturm abx increase lasix GISELLE improving, nephro following BG near goal Lantus increased to BID pt continues to have periods of confusion/ delayed congnition consistent w metabolic encephalopathy am labs repeat CXR in am 03/25/21 remains on 15L now with non-rebreather mask on abx receiving lasix renal fxn stable BG at goal cxr today improving but oxygen requirements are not will perform CTA covid test continue current care if respiratory status fails to improve with diuretics and antibiotics will consult pulmonology 03/26/21 O2 down to 10L w NRB cont abx cont lasix nephrology following CTA unable to be performed d/t renal fxn V/Q scan unable to be performed d/t pulm HTN per Radiology D dimer is elevated but lower than previously drawn when pt had COVID consult Dr Langston for recs regarding anticoagulation and ongoing management of resp failure case presented to him briefly this am am labs 03/27/21 O2 down to 5L w NRB cont current care abx and diuresis titrating down steroids pt requested to bring in her CPAP from home clinically improving Subjective Date/time seen: 03/27/21 15:30 pt seen this morning w pulm present. O2 requirements improving Exam Narrative: General: Pt is alert awake no respiratory distress currently on 5 L w NRB
[2021-03-27 16:03] LABS: Vancomycin Trough 19.3 ug/mL (10.0-20.0)
[2021-03-27 16:25] LABS: Glucose Point of Care 260 mg/dl (65-105)
[2021-03-27 20:17] LABS: Glucose Point of Care 309 mg/dl (65-105)
[2021-03-27] MEDS: rOPINIRole HCL 0.25 MG TABLET PO (21:59)
[2021-03-28] VITALS (23 sets, daily range): BP systolic 147–150; BP diastolic 52–57; PULSE 59–74; RESP 16–24; TEMP 35.8–36.4; O2SAT 90–100
[2021-03-28] MEDS: ALBUTEROL SULFATE NEB 2.5 MG/0.5 ML INH INHALATION ×6 (00:01→23:10)
[2021-03-28] MEDS: IPRATROPIUM BR 0.02% INH SOLN 0.5 MG/2.5 ML VIAL INHALATION ×6 (00:02→23:10)
[2021-03-28 08:08] LABS: Glucose Point of Care 233 mg/dl (65-105)
[2021-03-28] MEDS: THERAPEUTIC MULTIVITAMINS/MINERALS TAB (*BKC) 1 TABLET PO (08:36)
[2021-03-28] MEDS: ATORVASTATIN 40 MG TABLET PO (08:36)
[2021-03-28] MEDS: MAGNESIUM OXIDE 200 MG TABLET PO ×2 (08:36→16:52)
[2021-03-28] MEDS: carvediloL 25 MG TABLET PO ×2 (08:36→21:10)
[2021-03-28] MEDS: ASPIRIN 81 MG ENTERIC TABLET PO (08:36)
[2021-03-28] MEDS: ASCORBIC ACID 500 MG TABLET 1000 MG PO (08:37)
[2021-03-28] MEDS: amLODIPine BESYLATE 5 MG TABLET 10 MG PO (08:37)
[2021-03-28] MEDS: FERROUS SULFATE 324 MG TABLET PO (08:37)
[2021-03-28] MEDS: ENOXAPARIN 30 MG/0.3 ML SYRINGE SUB-Q (08:37)
[2021-03-28] MEDS: INSULIN GLARGINE (*BKC) 100 UNITS/ML 10 UNITS SUB-Q (08:38)
[2021-03-28] MEDS: INSULIN ASPART (*BKC) 100 UNITS/ML SUB-Q (08:39)
[2021-03-28] MEDS: FUROSEMIDE INJ 40 MG/4 ML VIAL IV PUSH ×2 (08:40→16:52)
[2021-03-28] MEDS: FLUTICASONE PROPIONATE 0.05% NA SPR 16 GM BTL (*BKC) 2 SPRAY NASAL (08:40)
[2021-03-28 10:55] LABS: Basophils Absolute Auto 0.1 K/mm3 (0.0-0.1); Basophils Percent Auto 0.8 % (0.2-1.2); Eosinophils Percent Auto 9.8 % (0-4.4); Hematocrit 26.8 % (37.0-47.0); Hemoglobin 8.3 g/dL (12.0-15.0); Immature Granulocyte Absolute 0.04 K/mm3 (0.00-0.031); Immature Granulocyte Percent A 0.4 % (0-0.5); Lymphocytes Absolute Auto 0.93 K/mm3 (0.9-3.2); Lymphocytes Percent Auto 9.5 % (18.3-44.2); Mean Corpuscular Hemoglobin 32.5 pg (26-34); Mean Corpuscular Volume 105.1 fl (80-100); Mean Platelet Volume 10.6 fl (7.4-10.4); Monocytes Absolute Auto 1.1 K/mm3 (0.1-0.6); Neutrophils Absolute Auto 6.7 K/mm3 (1.3-6.7); Neutrophils Percent Auto 68.5 % (45.5-73.1); Platelet Count Result 263 k/mm3 (150-375); Red Blood Count 2.55 M/mm3 (4.2-5.4); Red Cell Distribution Width 15.2 % (11.5-14.5); White Blood Count 9.8 K/mm3 (4.5-10.0)
[2021-03-28 11:09] LABS: Alanine Aminotransferase 16 U/L (4-35); Albumin Level 3.2 g/dL (3.5-5.1); Alkaline Phosphatase 91 U/L (38-126); Anion Gap 9 mmol/L (8-16); Aspartate Amino Transferase 24 U/L (14-36); Bilirubin,Total 0.4 mg/dL (0.2-1.3); Blood Urea Nitrogen 66 mg/dL (7-17); Calcium 8.9 mg/dL (8.4-10.2); Carbon Dioxide 29 mmol/L (22-30); Chloride 96 mmol/L (98-107); Estimated CRCL calculation 21 ml/min; Estimated Glomerular Filt Rate 25; Glucose 237 mg/dL (65-110); Magnesium 2.2 mg/dL (1.6-2.3); Potassium 4.5 mmol/L (3.4-5.0); Sodium 134 mmol/L (137-145)
--- NOTE | 2021-03-28 11:28 | PM.PNPUL ---
Progress Note: A&P Assessment and Plan (1) Acute and chronic respiratory failure with hypoxia: Code(s): J96.21 - Acute and chronic respiratory failure with hypoxia Status: Acute Assessment and Plan: 03/26 Patient with worsening hypoxic respiratory failure now requiring 10 L nasal cannula 15 L non-rebreather mask. Patient had a CT scan of the chest on 03/25/2021 demonstrating diffuse patchy interstitial and alveolar infiltrates with areas of consolidation consistent with post COVID interstitial lung disease-organizing pneumonia with without bacterial pneumonia and/or fluid overload. blood cultures are negative from 03/20/2021. Patient had a rapid COVID antigen test on 03/25 is negative. I will send the COVID RT PCR study. I will send influenza swab to exclude influenza. Patient is currently being treated for healthcare associated pneumonia with vancomycin and cefepime since 03/24/2020, diuresis is limited by her chronic renal insufficiency and she is on Lasix 40 p.o. bid. At this time I would like to continue vancomycin and cefepime for 1 additional day. I will repeat a chest x-ray in the morning and follow her oxygenation. If there is no significant improvement, I will consider treating post COVID interstitial lung disease -organizing pneumonia with glucocorticoids As has been reported in a few case reports series (Annals of the [place] [employer], volume 18, 5. , page [phone] and The [place] Journal of Infectious Disease 2021:21 (7) [id number]). Patient is currently on albuterol and ipratropium nebulizers and she is not wheezing at this time. Will continue. lower extremity Dopplers are negative for DVT. I would not systemically anticoagulate this patient at this time and would continue Lovenox 30 mg subcu q.day. Will repeat echocardiogram. COVID RT PCR test was negative. Patient was given Lasix 40 IV b.i.d. 03/27 the patient tells me she is breathing better today. Currently the patient is on 12 L high-flow nasal cannula with saturations 94%. Chest x-ray with unchanged diffuse bilateral interstitial alveolar infiltrates. White blood cell count is 10.2, creatinine is 2.2. Eyes and nose are not recorded but her weight has decreased from 58.8 yesterday to 58.2 today. Lower extremity Dopplers are negative. She has stabilized or improved with broad-spectrum antibiotics and Lasix and will continue these treatments today. If no continued improvement we will consider steroids for post COVID interstitial lung disease -organizing pneumonia. Repeat echo demonstrates moderate to severe aortic valve stenosis with an area of 1.17 which is slightly improved from 01/28/2021 with an area of 0.7, gradient and velocities are the same. Patient does have severe pulmonary hypertension. 03/28 patient tells me she is not his breathing is well today as yesterday. CPAP was attempted with the hospital machine but only tolerated few hours. This morning on 10 L nasal cannula her sats were 88% and they increased her to 15 L nasal cannula her saturations are now 93%. I will initiate Solu-Medrol 60 mg IV q.day for post COVID organizing pneumonia. Will follow with you. Subjective Date/time seen: 03/28/21 11:28 Interval history: 03/26 This is a new pulmonary consult for hypoxemic respiratory failure. 70-year-old woman with a history of congestive heart failure, hypertension, hyperlipidemia, diabetes, obstructive sleep apnea on CPAP, with aortic stenosis and mitral regurgitation who developed respiratory distress with diffuse interstitial infiltrates requiring noninvasive ventilation at [facility] on 01/27/2021. Patient was listed to be transferred [facility] given her history of aortic stenosis and mitral valve regurgitation with a possible surgical AVR on 02/09/2021. On 01/28/2021 she had wore noninvasive ventilation with a VATS at 100% FiO2 and was transitioned to 15 L high-flow nasal cannula after diuresis. After listing
[2021-03-28 11:56] LABS: Glucose Point of Care 188 mg/dl (65-105)
--- NOTE | 2021-03-28 12:03 | P.PNNP_ITS ---
Progress Note: A&P Assessment and Plan (1) GISELLE (acute kidney injury): Code(s): N17.9 - Acute kidney failure, unspecified Status: Acute Assessment and Plan: * GISELLE. Creatinine peaked at 2.8. renal function back to baseline * likely due to a combination of volume depletion and hypotension on admission * creatinine has fluctuated to extremes in the last few years * reasonable urine output at this time (2) Chronic kidney disease, stage IV (severe): Code(s): N18.4 - Chronic kidney disease, stage 4 (severe) Status: Chronic Assessment and Plan: * baseline creatine averages around 2.0 - 2.7mg/dl * thought to be secondary to her HTN, DM, cardiac/vascular disease and need for diuretics to maintain her volume status * noted fluctuations in kidney function due to fluid status and necessity of diuretics (3) Acute and chronic respiratory failure with hypoxia: Code(s): J96.21 - Acute and chronic respiratory failure with hypoxia Status: Acute Assessment and Plan: * currently on more than baseline oxygen requirements * recent CXR results noted - pneumonia versus pulmonary edema versus both * on diuretics and antibiotics * follow serial CXRs * continue oxygen support * Pulmonary recommendations noted * On less oxygen now. (4) CHF (congestive heart failure): Qualifiers: Heart failure chronicity: acute on chronic Heart failure type: unspecified Qualified Code(s): I50.9 - Heart failure, unspecified Code(s): I50.9 - Heart failure, unspecified Status: Chronic Assessment and Plan: * follows with Dr. Ritter * despite valvular heart disease, deemed too high risk for surgical intervention * diuretics have been resumed (5) Hypertension: Code(s): I10 - Essential (primary) hypertension Status: Chronic Assessment and Plan: * hypotension resolved * slowly reintroduce anti-HTN medications * Systolic 120-150. * hold ARB in the setting of possible more aggressive diuresis and possible infection * follow trend of hemodynamics (6) Anemia: Code(s): D64.9 - Anemia, unspecified Status: Chronic Assessment and Plan: * due to CKD and acute illness * empirically start Epogen * T sat was checked on the 5th and this was suggestive of sufficient iron stores. (7) Diabetes: Code(s): E11.9 - Type 2 diabetes mellitus without complications Status: Chronic Assessment and Plan: * DKA resolved * follow accuchecks * on SSI Will continue to follow. Subjective Date/time seen: 03/28/21 12:03 Interval history: Patient feels okay. Still short of breath but about the same as usual. She is on 4L of oxygen at home. Currently she is on 8L of oxygen but was on 12 the other day. Exam Narrative: General: WD/WN female in NAD Heart: normal S1 and S2; no rub Lungs: coarse breath sounds with scattered crackles Abdomen: soft, nontender, nondistended, positive bowel sounds Extremities: no cyanosis or clubbing; no edema Skin: No rash Objective Data Vital Signs Vital Signs: Vital Signs - 24 hr 03/27/21 12:07 03/27/21 14:07 03/27/21 15:13 Temperature 36.1 C L Pulse Rate 72 71 71 Respiratory Rate 18 16 16 Blood Pressure 123/45 L Pulse Oximetry 98 03/27/21 15:28 03/27/21 16:00 03/27/21 20:00
--- NOTE | 2021-03-28 12:03 | PM.PNNEP ---
Progress Note: A&P Assessment and Plan (1) GISELLE (acute kidney injury): Code(s): N17.9 - Acute kidney failure, unspecified Status: Acute Assessment and Plan: GISELLE. Creatinine peaked at 2.8. renal function back to baseline likely due to a combination of volume depletion and hypotension on admission creatinine has fluctuated to extremes in the last few years reasonable urine output at this time (2) Chronic kidney disease, stage IV (severe): Code(s): N18.4 - Chronic kidney disease, stage 4 (severe) Status: Chronic Assessment and Plan: baseline creatine averages around 2.0 - 2.7mg/dl thought to be secondary to her HTN, DM, cardiac/vascular disease and need for diuretics to maintain her volume status noted fluctuations in kidney function due to fluid status and necessity of diuretics (3) Acute and chronic respiratory failure with hypoxia: Code(s): J96.21 - Acute and chronic respiratory failure with hypoxia Status: Acute Assessment and Plan: currently on more than baseline oxygen requirements recent CXR results noted - pneumonia versus pulmonary edema versus both on diuretics and antibiotics follow serial CXRs continue oxygen support Pulmonary recommendations noted On less oxygen now. (4) CHF (congestive heart failure): Qualifiers: Heart failure chronicity: acute on chronic Heart failure type: unspecified Qualified Code(s): I50.9 - Heart failure, unspecified Code(s): I50.9 - Heart failure, unspecified Status: Chronic Assessment and Plan: follows with Dr. Ritter despite valvular heart disease, deemed too high risk for surgical intervention diuretics have been resumed (5) Hypertension: Code(s): I10 - Essential (primary) hypertension Status: Chronic Assessment and Plan: hypotension resolved slowly reintroduce anti-HTN medications Systolic 120-150. hold ARB in the setting of possible more aggressive diuresis and possible infection follow trend of hemodynamics (6) Anemia: Code(s): D64.9 - Anemia, unspecified Status: Chronic Assessment and Plan: due to CKD and acute illness empirically start Epogen T sat was checked on the and this was suggestive of sufficient iron stores. (7) Diabetes: Code(s): E11.9 - Type 2 diabetes mellitus without complications Status: Chronic Assessment and Plan: DKA resolved follow accuchecks on SSI Will continue to follow. Subjective Date/time seen: 03/28/21 12:03 Interval history: Patient feels okay. Still short of breath but about the same as usual. She is on 4L of oxygen at home. Currently she is on 8L of oxygen but was on 12 the other day. Exam Narrative: General: WD/WN female in NAD Heart: normal S1 and S2; no rub Lungs: coarse breath sounds with scattered crackles Abdomen: soft, nontender, nondistended, positive bowel sounds Extremities: no cyanosis or clubbing; no edema Skin: No rash Objective Data Vital Signs Vital Signs: Vital Signs - 24 hr 03/27/21 12:07 03/27/21 14:07 03/27/21 15:13 Temperature 36.1 C L Pulse Rate 72 71 71 Respiratory Rate 18 16 16 Blood Pressure 123/45 L Pulse Oximetry 98 03/27/21 15:28 03/27/21 16:00 03/27/21 20:00 Temperature Pulse Rate 70 68 73 Respiratory Rate 20 Blood Pressure Pulse Oximetry 95 03/27/21 20:08 03/27/21 21:55 03/27/21 21:59 Temperature 36.4 C Pulse Rate 74 69 74 Respiratory Rate 20 18 Blood Pressure 149/62 H Pulse Oximetry 100 03/28/21 00:00 03/28/21 00:01 03/28/21 04:00 Temperature Pulse Rate 66 70 69 Respiratory Rate 20 Blood Pressure Pulse Oximetry 03/28/21 05:27 03/28/21 05:41 03/28/21 08:00 Temperature 36.4 C L Pulse Rate 74 74 72 Respiratory Rate 20 16 Blood Pressure 149/55 H Pulse Oximetry 95 03/28/21 08:36 03/28/21 08:50 03/17
[2021-03-28] MEDS: methylPREDNISolone SOD SUCC 125 MG VIAL 60 MG IV PUSH (12:18)
--- NOTE | 2021-03-28 13:10 | PC.NURSE ---
Assessment charted by John Zhu and [employer] student nurse. Reviewed and verified by me, Shanae Kerns RN.
--- NOTE | 2021-03-28 13:48 | PCOTNOTE ---
Attempted to see pt for occupational therapy tx this PM. Per RN, pt is currently on CPAP machine and is not appropriate at this time. Will continue per POC duration/frequency tomorrow.
--- NOTE | 2021-03-28 14:01 | PCPTNOTE ---
Per nursing and OT the pt currently on CPAP machine and is not appropriate for therapy at this time. Will continue per PT plan of care.
[2021-03-28 16:29] LABS: Glucose Point of Care 177 mg/dl (65-105)
[2021-03-28] MEDS: INSULIN GLARGINE (*BKC) 100 UNITS/ML SUB-Q (16:52)
[2021-03-28] MEDS: EPOETIN ALFA-EPBX 10,000 UNITS/ML VIAL 10000 UNITS SUB-Q (18:49)
[2021-03-28] MEDS: rOPINIRole HCL 0.25 MG TABLET PO (21:10)
[2021-03-28 21:56] LABS: Glucose Point of Care 191 mg/dl (65-105)
[2021-03-29] VITALS (29 sets, daily range): BP systolic 120–131; BP diastolic 44–52; PULSE 56–78; RESP 13–24; TEMP 36.6–36.7; O2SAT 84–98
[2021-03-29] MEDS: IPRATROPIUM BR 0.02% INH SOLN 0.5 MG/2.5 ML VIAL INHALATION ×5 (04:21→20:11)
[2021-03-29] MEDS: ALBUTEROL SULFATE NEB 2.5 MG/0.5 ML INH INHALATION ×5 (04:21→20:11)
[2021-03-29 08:02] LABS: Glucose Point of Care 293 mg/dl (65-105)
[2021-03-29] MEDS: ENOXAPARIN 30 MG/0.3 ML SYRINGE SUB-Q (08:56)
[2021-03-29] MEDS: ATORVASTATIN 40 MG TABLET PO (08:56)
[2021-03-29] MEDS: FUROSEMIDE INJ 40 MG/4 ML VIAL IV PUSH ×2 (08:56→17:21)
[2021-03-29] MEDS: amLODIPine BESYLATE 5 MG TABLET 10 MG PO (08:56)
[2021-03-29] MEDS: ASPIRIN 81 MG ENTERIC TABLET PO (08:56)
[2021-03-29] MEDS: MAGNESIUM OXIDE 200 MG TABLET PO ×2 (08:56→17:22)
[2021-03-29] MEDS: FERROUS SULFATE 324 MG TABLET PO (08:56)
[2021-03-29] MEDS: ASCORBIC ACID 500 MG TABLET 1000 MG PO (08:56)
[2021-03-29] MEDS: carvediloL 25 MG TABLET PO ×2 (08:56→20:19)
[2021-03-29] MEDS: methylPREDNISolone SOD SUCC 125 MG VIAL 60 MG IV PUSH (08:57)
[2021-03-29] MEDS: FLUTICASONE PROPIONATE 0.05% NA SPR 16 GM BTL (*BKC) 2 SPRAY NASAL (08:57)
[2021-03-29] MEDS: THERAPEUTIC MULTIVITAMINS/MINERALS TAB (*BKC) 1 TABLET PO (08:57)
[2021-03-29] MEDS: INSULIN GLARGINE (*BKC) 100 UNITS/ML 10 UNITS SUB-Q ×2 (09:01→17:21)
[2021-03-29] MEDS: INSULIN ASPART (*BKC) 100 UNITS/ML SUB-Q ×3 (09:03→17:19)
--- NOTE | 2021-03-29 10:22 | P.PNNP_ITS ---
Progress Note: A&P Assessment and Plan (1) GISELLE (acute kidney injury): Code(s): N17.9 - Acute kidney failure, unspecified Status: Acute Assessment and Plan: * GISELLE. Creatinine peaked at 2.8. renal function back to baseline * likely due to a combination of volume depletion and hypotension on admission * creatinine has fluctuated to extremes in the last few years * reasonable urine output at this time * Because of her respiratory failure will try a couple of days of metolazone. (2) Chronic kidney disease, stage IV (severe): Code(s): N18.4 - Chronic kidney disease, stage 4 (severe) Status: Chronic Assessment and Plan: * baseline creatine averages around 2.0 - 2.7mg/dl * thought to be secondary to her HTN, DM, cardiac/vascular disease and need for diuretics to maintain her volume status * noted fluctuations in kidney function due to fluid status and necessity of diuretics (3) Acute and chronic respiratory failure with hypoxia: Code(s): J96.21 - Acute and chronic respiratory failure with hypoxia Status: Acute Assessment and Plan: * currently on more than baseline oxygen requirements * recent CXR results noted - pneumonia versus pulmonary edema versus both * on diuretics and antibiotics * follow serial CXRs * continue oxygen support * Pulmonary recommendations noted * On 13L of oxygen now. Try some metolazone. (4) CHF (congestive heart failure): Qualifiers: Heart failure chronicity: acute on chronic Heart failure type: unspecified Qualified Code(s): I50.9 - Heart failure, unspecified Code(s): I50.9 - Heart failure, unspecified Status: Chronic Assessment and Plan: * follows with Dr. Ritter * despite valvular heart disease, deemed too high risk for surgical intervention * On Lasix 40 IV b.i.d.. Will try metolazone. (5) Hypertension: Code(s): I10 - Essential (primary) hypertension Status: Chronic Assessment and Plan: * hypotension resolved * slowly reintroduce anti-HTN medications * Systolic 120-150. * Continue same meds (6) Anemia: Code(s): D64.9 - Anemia, unspecified Status: Chronic Assessment and Plan: * due to CKD and acute illness * empirically start Epogen * T sat was checked on the 5th and this was suggestive of sufficient iron stores. (7) Diabetes: Code(s): E11.9 - Type 2 diabetes mellitus without complications Status: Chronic Assessment and Plan: * DKA resolved * follow accuchecks * on SSI Will continue to follow. Subjective Date/time seen: 03/29/21 10:22 Interval history: Patient feels okay. Still short of breath. She is on 4L of oxygen at home. Currently she is on 13L of oxygen Exam Narrative: General: WD/WN female in NAD Heart: normal S1 and S2; no rub Lungs: coarse breath sounds with scattered crackles Abdomen: soft, nontender, nondistended, positive bowel sounds Extremities: no cyanosis or clubbing; no edema Skin: No rash Objective Data Vital Signs Vital Signs: Vital Signs - 24 hr 03/28/21 12:00 03/28/21 12:55 03/28/21 13:07 Temperature Pulse Rate 69 68 66 Respiratory Rate 22 H 22 H Blood Pressure Pulse Oximetry 03/28/21 13:40 03/28/21 14:00 03/28/21 16:00 Temperature 36.1 C L Pulse Rate 68
--- NOTE | 2021-03-29 10:22 | PM.PNNEP ---
Progress Note: A&P Assessment and Plan (1) GISELLE (acute kidney injury): Code(s): N17.9 - Acute kidney failure, unspecified Status: Acute Assessment and Plan: GISELLE. Creatinine peaked at 2.8. renal function back to baseline likely due to a combination of volume depletion and hypotension on admission creatinine has fluctuated to extremes in the last few years reasonable urine output at this time Because of her respiratory failure will try a couple of days of metolazone. (2) Chronic kidney disease, stage IV (severe): Code(s): N18.4 - Chronic kidney disease, stage 4 (severe) Status: Chronic Assessment and Plan: baseline creatine averages around 2.0 - 2.7mg/dl thought to be secondary to her HTN, DM, cardiac/vascular disease and need for diuretics to maintain her volume status noted fluctuations in kidney function due to fluid status and necessity of diuretics (3) Acute and chronic respiratory failure with hypoxia: Code(s): J96.21 - Acute and chronic respiratory failure with hypoxia Status: Acute Assessment and Plan: currently on more than baseline oxygen requirements recent CXR results noted - pneumonia versus pulmonary edema versus both on diuretics and antibiotics follow serial CXRs continue oxygen support Pulmonary recommendations noted On 13L of oxygen now. Try some metolazone. (4) CHF (congestive heart failure): Qualifiers: Heart failure chronicity: acute on chronic Heart failure type: unspecified Qualified Code(s): I50.9 - Heart failure, unspecified Code(s): I50.9 - Heart failure, unspecified Status: Chronic Assessment and Plan: follows with Dr. Ritter despite valvular heart disease, deemed too high risk for surgical intervention On Lasix 40 IV b.i.d.. Will try metolazone. (5) Hypertension: Code(s): I10 - Essential (primary) hypertension Status: Chronic Assessment and Plan: hypotension resolved slowly reintroduce anti-HTN medications Systolic 120-150. Continue same meds (6) Anemia: Code(s): D64.9 - Anemia, unspecified Status: Chronic Assessment and Plan: due to CKD and acute illness empirically start Epogen T sat was checked on the 5th and this was suggestive of sufficient iron stores. (7) Diabetes: Code(s): E11.9 - Type 2 diabetes mellitus without complications Status: Chronic Assessment and Plan: DKA resolved follow accuchecks on SSI Will continue to follow. Subjective Date/time seen: 03/29/21 10:22 Interval history: Patient feels okay. Still short of breath. She is on 4L of oxygen at home. Currently she is on 13L of oxygen Exam Narrative: General: WD/WN female in NAD Heart: normal S1 and S2; no rub Lungs: coarse breath sounds with scattered crackles Abdomen: soft, nontender, nondistended, positive bowel sounds Extremities: no cyanosis or clubbing; no edema Skin: No rash Objective Data Vital Signs Vital Signs: Vital Signs - 24 hr 03/28/21 12:00 03/28/21 12:55 03/28/21 13:07 Temperature Pulse Rate 69 68 66 Respiratory Rate 22 H 22 H Blood Pressure Pulse Oximetry 03/28/21 13:40 03/28/21 14:00 03/28/21 16:00 Temperature 36.1 C L Pulse Rate 68 62 Respiratory Rate 24 H 19 Blood Pressure 147/52 H Pulse Oximetry 100 03/28/21 20:00 03/28/21 21:00 03/28/21 21:10 Temperature Pulse Rate 61 60 Respiratory Rate 24 H 24 H Blood Pressure Pulse Oximetry 03/28/21 21:31 03/28/21 23:09 03/28/21 23:17 Temperature 35.8 C L Pulse Rate 63 68 59 L Respiratory Rate 16 18 20 Blood Pressure 150/57 H Pulse Oximetry 100 03/29/21 00:00 03/29/21 02:01 03/29/21 04:00 Temperature Pulse Rate 56 L 65 61 Respiratory Rate 13 Blood Pressure Pulse Oximetry 96 03/29/21 04:25 03/29/21 04:26 03/29/21 04:33 Temperature P
--- NOTE | 2021-03-29 10:25 | PM.PNPUL ---
Progress Note: A&P Assessment and Plan (1) Acute and chronic respiratory failure with hypoxia: Code(s): J96.21 - Acute and chronic respiratory failure with hypoxia Status: Acute Assessment and Plan: 03/26 Patient with worsening hypoxic respiratory failure now requiring 10 L nasal cannula 15 L non-rebreather mask. Patient had a CT scan of the chest on 03/25/2021 demonstrating diffuse patchy interstitial and alveolar infiltrates with areas of consolidation consistent with post COVID interstitial lung disease-organizing pneumonia with without bacterial pneumonia and/or fluid overload. blood cultures are negative from 03/20/2021. Patient had a rapid COVID antigen test on 03/25 is negative. I will send the COVID RT PCR study. I will send influenza swab to exclude influenza. Patient is currently being treated for healthcare associated pneumonia with vancomycin and cefepime since 03/24/2020, diuresis is limited by her chronic renal insufficiency and she is on Lasix 40 p.o. bid. At this time I would like to continue vancomycin and cefepime for 1 additional day. I will repeat a chest x-ray in the morning and follow her oxygenation. If there is no significant improvement, I will consider treating post COVID interstitial lung disease -organizing pneumonia with glucocorticoids As has been reported in a few case reports series (Annals of the [place] [employer], volume 18, 5. , page [phone] and The [place] Journal of Infectious Disease 2021:21 [id number]) [id number]). Patient is currently on albuterol and ipratropium nebulizers and she is not wheezing at this time. Will continue. lower extremity Dopplers are negative for DVT. I would not systemically anticoagulate this patient at this time and would continue Lovenox 30 mg subcu q.day. Will repeat echocardiogram. COVID RT PCR test was negative. Patient was given Lasix 40 IV b.i.d. 03/27 the patient tells me she is breathing better today. Currently the patient is on 12 L high-flow nasal cannula with saturations 94%. Chest x-ray with unchanged diffuse bilateral interstitial alveolar infiltrates. White blood cell count is 10.2, creatinine is 2.2. Eyes and nose are not recorded but her weight has decreased from 58.8 yesterday to 58.2 today. Lower extremity Dopplers are negative. She has stabilized or improved with broad-spectrum antibiotics and Lasix and will continue these treatments today. If no continued improvement we will consider steroids for post COVID interstitial lung disease -organizing pneumonia. Repeat echo demonstrates moderate to severe aortic valve stenosis with an area of 1.17 which is slightly improved from 01/28/2021 with an area of 0.7, gradient and velocities are the same. Patient does have severe pulmonary hypertension. 03/28 patient tells me she is not his breathing is well today as yesterday. CPAP was attempted with the hospital machine but only tolerated few hours. This morning on 10 L nasal cannula her sats were 88% and they increased her to 15 L nasal cannula her saturations are now 93%. I will initiate Solu-Medrol 60 mg IV q.day for post COVID organizing pneumonia. 03/29 patient tells me she is breathing about the same as she was yesterday. Currently she is on 13 L high-flow nasal cannula saturations 90-91%. She was able to tolerate the hospital V60 CPAP 10 last night to about 4:00 am and said she was able to sleep with it. She was on 60% FiO2 with saturations 96%. Remains on Lasix 40 IV b.i.d for possible fluid overload. Vancomycin and cefepime started on 03/24 emperically for HCAP. She will received her 2nd dose of Solu-Medrol 60 IV at 9:00 a.m. this morning. Continue CPAP 10 with 60% at night. Although her optimal CPAP pressures are 13 she could not tolerate that and 10 is likely better than no treatment. If she does well on 10 over the next few evenings can consider increasing to 13 to see if she will tolerate 13. Will follow with you.
[2021-03-29] MEDS: metOLazone 5 MG TABLET PO (11:38)
[2021-03-29 11:47] LABS: Glucose Point of Care 392 mg/dl (65-105)
[2021-03-29 16:45] LABS: Glucose Point of Care 418 mg/dl (65-105)
--- NOTE | 2021-03-29 16:50 | P.PNIM_ITS ---
Progress Note: A&P Assessment and Plan (1) DKA (diabetic ketoacidosis): Code(s): E11.10 - Type 2 diabetes mellitus with ketoacidosis without coma Status: Acute (2) Hypoglycemia: Code(s): E16.2 - Hypoglycemia, unspecified Status: Acute (3) Hypotension: Qualifiers: Hypotension type: unspecified hypotension type Qualified Code(s): I95.9 - Hypotension, unspecified Code(s): I95.9 - Hypotension, unspecified Status: Acute (4) Bradycardia: Code(s): R00.1 - Bradycardia, unspecified Status: Acute (5) Acute and chronic respiratory failure with hypoxia: Code(s): J96.21 - Acute and chronic respiratory failure with hypoxia Status: Acute (6) Acute on chronic diastolic heart failure: Code(s): I50.33 - Acute on chronic diastolic (congestive) heart failure Status: Acute (7) CHF (congestive heart failure): Qualifiers: Heart failure chronicity: acute on chronic Heart failure type: unspecified Qualified Code(s): I50.9 - Heart failure, unspecified Code(s): I50.9 - Heart failure, unspecified Status: Chronic (8) Chronic kidney disease, stage IV (severe): Code(s): N18.4 - Chronic kidney disease, stage 4 (severe) Status: Chronic (9) Elevated troponin: Code(s): R77.8 - Other specified abnormalities of plasma proteins Status: Acute (10) Moderate aortic stenosis: Code(s): I35.0 - Nonrheumatic aortic (valve) stenosis Status: Acute (11) Hyperlipidemia: Qualifiers: Hyperlipidemia type: unspecified Qualified Code(s): E78.5 - Hyperlipidemia, unspecified Code(s): E78.5 - Hyperlipidemia, unspecified Status: Acute (12) Coronary artery disease: Code(s): I25.10 - Atherosclerotic heart disease of [place] coronary artery without angina pectoris Status: Acute (13) Acute on chronic diastolic (congestive) heart failure: Code(s): I50.33 - Acute on chronic diastolic (congestive) heart failure Status: Acute (14) Hyperkalemia: Code(s): E87.5 - Hyperkalemia Status: Acute (15) Lactic acidosis: Code(s): E87.2 - Acidosis Status: Acute (16) Metabolic encephalopathy: Code(s): G93.41 - Metabolic encephalopathy Status: Acute (17) Diabetes: Code(s): E11.9 - Type 2 diabetes mellitus without complications Status: Chronic (18) Hypertension: Code(s): I10 - Essential (primary) hypertension Status: Chronic Additional Plan 03/24/21 acute hypoxemic respiratory failure currently on 15L STAT ABG CXR w worsening infiltrated cover w broad specturm abx increase lasix GISELLE improving, nephro following BG near goal Lantus increased to BID pt continues to have periods of confusion/ delayed congnition consistent w metabolic encephalopathy am labs repeat CXR in am 03/25/21 remains on 15L now with non-rebreather mask on abx receiving lasix renal fxn stable BG at goal cxr today improving but oxygen requirements are not will perform CTA covid test continue current care if respiratory status fails to improve with diuretics and antibiotics will consult pulmonology 03/26/21 O2 down to 10L w NRB cont abx cont lasix nephrology following CTA unable to be performed d/t renal fxn V/Q scan unable to be performed d/t pulm HTN per Radiology D dimer is elevated but lower than previously drawn when pt had COVID consult Dr Langston for recs regarding antico
[2021-03-29] MEDS: INSULIN HUMAN REGULAR (*BKC) 100 UNITS/ML SUB-Q (17:18)
[2021-03-29] MEDS: rOPINIRole HCL 0.25 MG TABLET PO (20:18)
[2021-03-29 20:19] LABS: Glucose Point of Care 385 mg/dl (65-105)
[2021-03-30] VITALS (34 sets, daily range): BP systolic 114–131; BP diastolic 45–60; PULSE 59–80; RESP 16–22; TEMP 36.5–36.8; O2SAT 92–99
[2021-03-30] MEDS: IPRATROPIUM BR 0.02% INH SOLN 0.5 MG/2.5 ML VIAL INHALATION ×7 (00:02→23:30)
[2021-03-30] MEDS: ALBUTEROL SULFATE NEB 2.5 MG/0.5 ML INH INHALATION ×7 (00:03→23:30)
[2021-03-30 03:01] LABS: Hematocrit 25.9 % (37.0-47.0); Hemoglobin 8.3 g/dL (12.0-15.0); Mean Corpuscular Hemoglobin 32.3 pg (26-34); Mean Corpuscular Volume 100.8 fl (80-100); Mean Platelet Volume 10.7 fl (7.4-10.4); Platelet Count Result 286 k/mm3 (150-375); Red Blood Count 2.57 M/mm3 (4.2-5.4); Red Cell Distribution Width 14.8 % (11.5-14.5); White Blood Count 7.6 K/mm3 (4.5-10.0)
[2021-03-30 03:24] LABS: Albumin Level 3.2 g/dL (3.5-5.1); Anion Gap 6 mmol/L (8-16); Blood Urea Nitrogen 82 mg/dL (7-17); Calcium 8.4 mg/dL (8.4-10.2); Carbon Dioxide 30 mmol/L (22-30); Chloride 96 mmol/L (98-107); Estimated CRCL calculation 19 ml/min; Estimated Glomerular Filt Rate 22; Glucose 332 mg/dL (65-110); Phosphorus 3.8 mg/dL (2.5-4.5); Potassium 4.9 mmol/L (3.4-5.0); Sodium 132 mmol/L (137-145)
[2021-03-30 04:14] LABS: Vancomycin Trough 21.8 ug/mL (10.0-20.0)
--- NOTE | 2021-03-30 07:22 | P.PNNP_ITS ---
Progress Note: A&P Assessment and Plan (1) GISELLE (acute kidney injury): Code(s): N17.9 - Acute kidney failure, unspecified Status: Acute Assessment and Plan: * GISELLE. Creatinine peaked at 2.8. renal function back to baseline in the low 2s. * likely due to a combination of volume depletion and hypotension on admission * creatinine has fluctuated to extremes in the last few years * reasonable urine output at this time * She did better with metolazone she thinks. Output is not being quantified because she has no catheter. she will get another dose of metolazone today. Will continue this of her creatinine tolerates it. (2) Chronic kidney disease, stage IV (severe): Code(s): N18.4 - Chronic kidney disease, stage 4 (severe) Status: Chronic Assessment and Plan: * baseline creatine averages around 2.0 - 2.7mg/dl * thought to be secondary to her HTN, DM, cardiac/vascular disease and need for diuretics to maintain her volume status * noted fluctuations in kidney function due to fluid status and necessity of diuretics (3) Acute and chronic respiratory failure with hypoxia: Code(s): J96.21 - Acute and chronic respiratory failure with hypoxia Status: Acute Assessment and Plan: * currently on more than baseline oxygen requirements * recent CXR results noted - pneumonia versus pulmonary edema versus both * on diuretics ( furosemide and metolazone) and antibiotics * pulmonary on the case. I appreciate his input. (4) CHF (congestive heart failure): Qualifiers: Heart failure chronicity: acute on chronic Heart failure type: unspecified Qualified Code(s): I50.9 - Heart failure, unspecified Code(s): I50.9 - Heart failure, unspecified Status: Chronic Assessment and Plan: * follows with Dr. Ritter * despite valvular heart disease, deemed too high risk for surgical intervention * On Lasix 40 IV b.i.d. and metolazone (5) Hypertension: Code(s): I10 - Essential (primary) hypertension Status: Chronic Assessment and Plan: * hypotension resolved * slowly reintroduce anti-HTN medications when needed. She is back on her carvedilol. * Systolic 120-150. (6) Anemia: Code(s): D64.9 - Anemia, unspecified Status: Chronic Assessment and Plan: * due to CKD and acute illness * empirically start Epogen * T sat was checked on the and this was suggestive of sufficient iron stores. (7) Diabetes: Code(s): E11.9 - Type 2 diabetes mellitus without complications Status: Chronic Assessment and Plan: * On Accu-Cheks and sliding-scale insulin. Subjective Date/time seen: 03/30/21 07:22 Interval history: Patient feels okay. Still short of breath But about the same as yesterday. She is on 4L of oxygen at home. Currently she is on 13L of oxygen By Airvo she says she made a little more urine last night she thinks. Exam Narrative: General: WD/WN female in NAD Heart: normal S1 and S2; no rub or gallop Lungs: coarse breath sounds with scattered crackles Abdomen: soft, nontender, nondistended, positive bowel sounds Extremities: no cyanosis or clubbing; no edema Skin: No rash or cyanosis Objective Data Vital Signs Vital Signs: Vital Signs - 24 hr 03/29/21 07:57 03/29/21 08:00 03/29/21 08:05 Temperature Pulse Rate 73 73 Pulse Rate [With Activity During Therapy Ses
--- NOTE | 2021-03-30 07:22 | PM.PNNEP ---
Progress Note: A&P Assessment and Plan (1) GISELLE (acute kidney injury): Code(s): N17.9 - Acute kidney failure, unspecified Status: Acute Assessment and Plan: GISELLE. Creatinine peaked at 2.8. renal function back to baseline in the low 2s. likely due to a combination of volume depletion and hypotension on admission creatinine has fluctuated to extremes in the last few years reasonable urine output at this time She did better with metolazone she thinks. Output is not being quantified because she has no catheter. she will get another dose of metolazone today. Will continue this of her creatinine tolerates it. (2) Chronic kidney disease, stage IV (severe): Code(s): N18.4 - Chronic kidney disease, stage 4 (severe) Status: Chronic Assessment and Plan: baseline creatine averages around 2.0 - 2.7mg/dl thought to be secondary to her HTN, DM, cardiac/vascular disease and need for diuretics to maintain her volume status noted fluctuations in kidney function due to fluid status and necessity of diuretics (3) Acute and chronic respiratory failure with hypoxia: Code(s): J96.21 - Acute and chronic respiratory failure with hypoxia Status: Acute Assessment and Plan: currently on more than baseline oxygen requirements recent CXR results noted - pneumonia versus pulmonary edema versus both on diuretics ( furosemide and metolazone) and antibiotics pulmonary on the case. I appreciate his input. (4) CHF (congestive heart failure): Qualifiers: Heart failure chronicity: acute on chronic Heart failure type: unspecified Qualified Code(s): I50.9 - Heart failure, unspecified Code(s): I50.9 - Heart failure, unspecified Status: Chronic Assessment and Plan: follows with Dr. Ritter despite valvular heart disease, deemed too high risk for surgical intervention On Lasix 40 IV b.i.d. and metolazone (5) Hypertension: Code(s): I10 - Essential (primary) hypertension Status: Chronic Assessment and Plan: hypotension resolved slowly reintroduce anti-HTN medications when needed. She is back on her carvedilol. Systolic 120-150. (6) Anemia: Code(s): D64.9 - Anemia, unspecified Status: Chronic Assessment and Plan: due to CKD and acute illness empirically start Epogen T sat was checked on the and this was suggestive of sufficient iron stores. (7) Diabetes: Code(s): E11.9 - Type 2 diabetes mellitus without complications Status: Chronic Assessment and Plan: On Accu-Cheks and sliding-scale insulin. Subjective Date/time seen: 03/30/21 07:22 Interval history: Patient feels okay. Still short of breath But about the same as yesterday. She is on 4L of oxygen at home. Currently she is on 13L of oxygen By Airvo she says she made a little more urine last night she thinks. Exam Narrative: General: WD/WN female in NAD Heart: normal S1 and S2; no rub or gallop Lungs: coarse breath sounds with scattered crackles Abdomen: soft, nontender, nondistended, positive bowel sounds Extremities: no cyanosis or clubbing; no edema Skin: No rash or cyanosis Objective Data Vital Signs Vital Signs: Vital Signs - 24 hr 03/29/21 07:57 03/29/21 08:00 03/29/21 08:05 Temperature Pulse Rate 73 73 Pulse Rate [With Activity During Therapy Session] Respiratory Rate 22 H Blood Pressure Pulse Oximetry 91 91 Pulse Oximetry [With Activity During Therapy Session] 03/29/21 08:15 03/29/21 08:56 03/29/21 12:00 Temperature Pulse Rate 75 78 69 Pulse Rate [With Activity During Therapy Session] Respiratory Rate 20 Blood Pressure Pulse Oximetry Pulse Oximetry [With Activity During Therapy Session] 03/29/21 13:06 03/29/21 13:19 03/29/21 13:29 Temperature Pulse Rate 72 69 Pulse Rate [With Activity During Therapy Session] 73
[2021-03-30 07:30] LABS: Glucose Point of Care 294 mg/dl (65-105)
[2021-03-30] MEDS: INSULIN ASPART (*BKC) 100 UNITS/ML SUB-Q ×3 (07:42→16:43)
[2021-03-30] MEDS: INSULIN GLARGINE (*BKC) 100 UNITS/ML 15 UNITS SUB-Q (07:43)
[2021-03-30] MEDS: ACETAMINOPHEN 325 MG TABLET 650 MG PO (07:51)
[2021-03-30] MEDS: FERROUS SULFATE 324 MG TABLET PO (07:55)
[2021-03-30] MEDS: ASCORBIC ACID 500 MG TABLET 1000 MG PO (07:56)
[2021-03-30] MEDS: MAGNESIUM OXIDE 200 MG TABLET PO ×2 (07:57→16:42)
[2021-03-30] MEDS: calcitrioL 0.25 MCG CAPSULE PO (07:57)
[2021-03-30] MEDS: ATORVASTATIN 40 MG TABLET PO (07:57)
[2021-03-30] MEDS: ASPIRIN 81 MG ENTERIC TABLET PO (07:57)
[2021-03-30] MEDS: metOLazone 5 MG TABLET PO (07:58)
[2021-03-30] MEDS: methylPREDNISolone SOD SUCC 125 MG VIAL 60 MG IV PUSH (07:58)
[2021-03-30] MEDS: amLODIPine BESYLATE 5 MG TABLET 10 MG PO (07:58)
[2021-03-30] MEDS: ENOXAPARIN 30 MG/0.3 ML SYRINGE SUB-Q (07:58)
[2021-03-30] MEDS: carvediloL 25 MG TABLET PO ×2 (07:59→20:11)
[2021-03-30] MEDS: THERAPEUTIC MULTIVITAMINS/MINERALS TAB (*BKC) 1 TABLET PO (08:00)
[2021-03-30] MEDS: FUROSEMIDE INJ 40 MG/4 ML VIAL IV PUSH (08:01)
[2021-03-30] MEDS: FLUTICASONE PROPIONATE 0.05% NA SPR 16 GM BTL (*BKC) 2 SPRAY NASAL (08:01)
--- NOTE | 2021-03-30 11:21 | PM.PNPUL ---
Progress Note: A&P Assessment and Plan (1) Acute and chronic respiratory failure with hypoxia: Code(s): J96.21 - Acute and chronic respiratory failure with hypoxia Status: Acute Assessment and Plan: this 70-year-old female has had hypoxemic respiratory failure related to diffuse bilateral infiltrates with some peribronchial distribution and also some perilobular pattern. the disease tempo is most likely that of a subacute illness, as all started following COVID-19 infection approximately 2 months ago. The patient history in conjunction with the chest CT findings suggest possible organizing pneumonia, as the most likely diagnosis. Of note, the patient has been treated with antibiotics with no improvement. According to the patient, her respiratory status has been stable over the last few days. The patient has history of exposure to domestic birds for approximately 2 years. Although hypersensitivity pneumonitis is also a possibility, the chest CT findings are more compatible with organizing pneumonia. Also in view of elevated peripheral eosinophils, eosinophilic pneumonia is in the differential diagnosis although less likely. Today's chest x-ray raised the possibility of slight infiltrate clearing. Plan is as follows: we will continue with current regimen of Solu-Medrol IV as prescribed, discontinue antibiotics, hold aspirin and tizanidine, ordered HP panel and serology screening and closely monitor respiratory status. (2) Acute on chronic diastolic heart failure: Code(s): I50.33 - Acute on chronic diastolic (congestive) heart failure Status: Acute (3) CHF (congestive heart failure): Qualifiers: Heart failure chronicity: acute on chronic Heart failure type: unspecified Qualified Code(s): I50.9 - Heart failure, unspecified Code(s): I50.9 - Heart failure, unspecified Status: Chronic (4) Diabetes: Code(s): E11.9 - Type 2 diabetes mellitus without complications Status: Chronic (5) Chronic kidney disease, stage IV (severe): Code(s): N18.4 - Chronic kidney disease, stage 4 (severe) Status: Chronic (6) GISELLE (acute kidney injury): Code(s): N17.9 - Acute kidney failure, unspecified Status: Acute Subjective Date/time seen: 03/30/21 11:21 This 70-year-old female has been admitted with shortness of breath. Patient has been short of breath since approximately 2 months ago when she was 1st diagnosed with COVID 19 infection. She was hospitalized at [facility] for COVID-19 infection. She has got a history of congestive heart failure related to underlying aortic stenosis and other valvular disease. According to the patient she has had shortness of breath for the last 2 months. In fact as far as she could recall she has not left the hospital since mid January. Initial workup showed bilateral infiltrates diffusely and acute hypoxemic respiratory failure. The patient has received treatment with antibiotics diuretics and most recently was started on IV steroids for possible organizing pneumonia. her lung history was negative she is a nonsmoker. Upon questioning she admitted having exposure to parakeet bird she has had at home for approximately 2 years. She usually cleans the cage twice a week. Patient's stated that her breathing seems to be getting better. However she remains on high-flow supplemental oxygen. She has no other respiratory symptoms such as cough sputum production wheezing chest pain palpitations hemoptysis night sweats fever chills or lower extremity edema. She has had some chronic orthopnea. she has been on diuretics for congestive heart failure. She has had history of diabetes hypertension and chronic kidney disease. On admission the chest CT showed diffuse infiltrates bilaterally with some louisa bronchial distribution and also perilobular pattern. She has some very small pleural effusions. Review of Systems Review of Systems: All systems r
[2021-03-30 11:47] LABS: Glucose Point of Care 295 mg/dl (65-105)
--- NOTE | 2021-03-30 12:01 | PCNFU ---
Nutrition Follow-Up Complete: Inadequate oral intake on admit as related to DKA as evidenced by limited po intake reported. goal: Adequate Intake of at least 75% of meals/supplements Patient is progressing towards goal, we will continue current goal. Pt current nutrition is DBCC with Glucerna shakes BID. Last recorded weight is 58.3 kg, down from 61.5 kg on admit. Bowel Motility:+BM reported 03/29 Labs Reviewed:Glu 332, GFR 22,Na 132, Hct 25.9,Hgb 8.3 Meds Noted:Lantus, Atrovent, Solu Medrol, Lipitor, Oscal, Lovenox, Coreg, Vit C Skin: WNL Additional Notes: Patient remains on a diabetic diet with Glucerna shakes BID. 70% of breakfast reported. O2 delivery: currently on Airvo. Agree with diet orders. Monitoring: RD will monitor every 5 days.
--- NOTE | 2021-03-30 16:12 | PM.IMPN ---
Progress Note: A&P Assessment and Plan (1) DKA (diabetic ketoacidosis): Code(s): E11.10 - Type 2 diabetes mellitus with ketoacidosis without coma Status: Acute (2) Hypoglycemia: Code(s): E16.2 - Hypoglycemia, unspecified Status: Acute (3) Hypotension: Qualifiers: Hypotension type: unspecified hypotension type Qualified Code(s): I95.9 - Hypotension, unspecified Code(s): I95.9 - Hypotension, unspecified Status: Acute (4) Bradycardia: Code(s): R00.1 - Bradycardia, unspecified Status: Acute (5) Acute and chronic respiratory failure with hypoxia: Code(s): J96.21 - Acute and chronic respiratory failure with hypoxia Status: Acute (6) Acute on chronic diastolic heart failure: Code(s): I50.33 - Acute on chronic diastolic (congestive) heart failure Status: Acute (7) CHF (congestive heart failure): Qualifiers: Heart failure chronicity: acute on chronic Heart failure type: unspecified Qualified Code(s): I50.9 - Heart failure, unspecified Code(s): I50.9 - Heart failure, unspecified Status: Chronic (8) Chronic kidney disease, stage IV (severe): Code(s): N18.4 - Chronic kidney disease, stage 4 (severe) Status: Chronic (9) Elevated troponin: Code(s): R77.8 - Other specified abnormalities of plasma proteins Status: Acute (10) Moderate aortic stenosis: Code(s): I35.0 - Nonrheumatic aortic (valve) stenosis Status: Acute (11) Hyperlipidemia: Qualifiers: Hyperlipidemia type: unspecified Qualified Code(s): E78.5 - Hyperlipidemia, unspecified Code(s): E78.5 - Hyperlipidemia, unspecified Status: Acute (12) Coronary artery disease: Code(s): I25.10 - Atherosclerotic heart disease of [place] coronary artery without angina pectoris Status: Acute (13) Acute on chronic diastolic (congestive) heart failure: Code(s): I50.33 - Acute on chronic diastolic (congestive) heart failure Status: Acute (14) Hyperkalemia: Code(s): E87.5 - Hyperkalemia Status: Acute (15) Lactic acidosis: Code(s): E87.2 - Acidosis Status: Acute (16) Metabolic encephalopathy: Code(s): G93.41 - Metabolic encephalopathy Status: Acute (17) Diabetes: Code(s): E11.9 - Type 2 diabetes mellitus without complications Status: Chronic (18) Hypertension: Code(s): I10 - Essential (primary) hypertension Status: Chronic Additional Plan 03/24/21 acute hypoxemic respiratory failure currently on 15L STAT ABG CXR w worsening infiltrated cover w broad specturm abx increase lasix GISELLE improving, nephro following BG near goal Lantus increased to BID pt continues to have periods of confusion/ delayed congnition consistent w metabolic encephalopathy am labs repeat CXR in am 03/25/21 remains on 15L now with non-rebreather mask on abx receiving lasix renal fxn stable BG at goal cxr today improving but oxygen requirements are not will perform CTA covid test continue current care if respiratory status fails to improve with diuretics and antibiotics will consult pulmonology 03/26/21 O2 down to 10L w NRB cont abx cont lasix nephrology following CTA unable to be performed d/t renal fxn V/Q scan unable to be performed d/t pulm HTN per Radiology D dimer is elevated but lower than previously drawn when pt had COVID consult Dr Langston for recs regarding anticoagulation and ongoing management of resp failure case presented to him briefly this am am labs 03/27/21 O2 down to 5L w NRB cont current care abx and diuresis titrating down steroids pt requested to bring in her CPAP from home clinically improving 03/28/21 pt now down to 13L HF without NRB mask renal function stable VS stable slow to improve w mulitple comordid conditions high risk for continuing resp/ renal failure transfer to [facility] requested co
[2021-03-30 16:33] LABS: Glucose Point of Care 354 mg/dl (65-105)
[2021-03-30] MEDS: INSULIN GLARGINE (*BKC) 100 UNITS/ML 10 UNITS SUB-Q ×2 (16:42→21:30)
[2021-03-30] MEDS: rOPINIRole HCL 0.25 MG TABLET PO (20:11)
[2021-03-30 20:31] LABS: Glucose Point of Care 326 mg/dl (65-105)
--- NOTE | 2021-03-30 23:24 | PCRCNOTE ---
Patient requests to be placed back on Airvo at this time. Removed patient from CPAP and placed back on Airvo at 30 lpm and an FIO2 of .30
[2021-03-30 23:26] LABS: Glucose Point of Care 278 mg/dl (65-105)
[2021-03-31] VITALS (21 sets, daily range): BP systolic 129–155; BP diastolic 50–60; PULSE 56–90; RESP 12–20; TEMP 36.2–36.8; O2SAT 94–98
[2021-03-31 04:40] LABS: Hematocrit 25.7 % (37.0-47.0); Hemoglobin 8.3 g/dL (12.0-15.0); Mean Corpuscular HGB Conc 32.3 g/dl (32-36); Mean Corpuscular Hemoglobin 31.9 pg (26-34); Mean Corpuscular Volume 98.8 fl (80-100); Mean Platelet Volume 10.9 fl (7.4-10.4); Platelet Count Result 333 k/mm3 (150-375); Red Cell Distribution Width 14.6 % (11.5-14.5)
[2021-03-31 04:59] LABS: Albumin Level 2.8 g/dL (3.5-5.1); Anion Gap 9 mmol/L (8-16); Blood Urea Nitrogen 93 mg/dL (7-17); Calcium 8.3 mg/dL (8.4-10.2); Carbon Dioxide 27 mmol/L (22-30); Chloride 96 mmol/L (98-107); Estimated CRCL calculation 19 ml/min; Estimated Glomerular Filt Rate 22; Glucose 228 mg/dL (65-110); Phosphorus 3.4 mg/dL (2.5-4.5); Potassium 4.7 mmol/L (3.4-5.0); Sodium 132 mmol/L (137-145)
[2021-03-31 05:13] LABS: Vancomycin Random 21.1 ug/mL (10-20)
--- NOTE | 2021-03-31 07:26 | P.PNNP_ITS ---
Progress Note: A&P Assessment and Plan (1) GISELLE (acute kidney injury): Code(s): N17.9 - Acute kidney failure, unspecified Status: Acute Assessment and Plan: * GISELLE. Creatinine peaked at 2.8. renal function back to baseline in the low 2s. * likely due to a combination of volume depletion and hypotension on admission * She is on metolazone and furosemide. * She has a Humphries catheter in. We will see how her urine output does. (2) Chronic kidney disease, stage IV (severe): Code(s): N18.4 - Chronic kidney disease, stage 4 (severe) Status: Chronic Assessment and Plan: * baseline creatine averages around 2.0 - 2.7mg/dl * thought to be secondary to her HTN, DM, cardiac/vascular disease and need for diuretics to maintain her volume status * noted fluctuations in kidney function due to fluid status and necessity of diuretics (3) Acute and chronic respiratory failure with hypoxia: Code(s): J96.21 - Acute and chronic respiratory failure with hypoxia Status: Acute Assessment and Plan: * currently on more than baseline oxygen requirements * recent CXR results noted - pneumonia versus pulmonary edema versus both * Echo shows severe aortic stenosis and severe pulmonary hypertension. * on diuretics ( furosemide and metolazone) and antibiotics * pulmonary on the case. I appreciate his input. (4) CHF (congestive heart failure): Qualifiers: Heart failure chronicity: acute on chronic Heart failure type: unspecified Qualified Code(s): I50.9 - Heart failure, unspecified Code(s): I50.9 - Heart failure, unspecified Status: Chronic Assessment and Plan: * follows with Dr. Ritter * despite valvular heart disease, deemed too high risk for surgical intervention * On Lasix 20 IV push daily and metolazone. (5) Hypertension: Code(s): I10 - Essential (primary) hypertension Status: Chronic Assessment and Plan: * hypotension resolved * slowly reintroduce anti-HTN medications when needed. She is back on her carvedilol. * Systolic 120-150. (6) Anemia: Code(s): D64.9 - Anemia, unspecified Status: Chronic Assessment and Plan: * due to CKD and acute illness * empirically start Epogen * T sat was checked on the 5th and this was suggestive of sufficient iron stores. (7) Diabetes: Code(s): E11.9 - Type 2 diabetes mellitus without complications Status: Chronic Assessment and Plan: * On Accu-Cheks and sliding-scale insulin. Subjective Date/time seen: 03/31/21 07:26 Interval history: Patient feels okay. Still short of breath But about the same as yesterday. Humphries catheter was placed last evening. Still on lots of oxygen per [employer] Exam Narrative: General: WD/WN female in NAD Heart: normal S1 and S2; no rub or gallop Lungs: coarse breath sounds with scattered crackles Abdomen: soft, nontender, nondistended, positive bowel sounds Extremities: no cyanosis or clubbing; no edema Skin: No rash or cyanosis Objective Data Vital Signs Vital Signs: Vital Signs - 24 hr 03/30/21 07:48 03/30/21 07:59 03/30/21 08:00 Temperature Pulse Rate 66 66 66 Respiratory Rate 18 Blood Pressure Pulse Oximetry 95 03/30/21 08:10 03/30/21 08:14 03/30/21 08:23 Temperature Pulse Rate 65
--- NOTE | 2021-03-31 07:26 | PM.PNNEP ---
Progress Note: A&P Assessment and Plan (1) GISELLE (acute kidney injury): Code(s): N17.9 - Acute kidney failure, unspecified Status: Acute Assessment and Plan: GISELLE. Creatinine peaked at 2.8. renal function back to baseline in the low 2s. likely due to a combination of volume depletion and hypotension on admission She is on metolazone and furosemide. She has a Humphries catheter in. We will see how her urine output does. (2) Chronic kidney disease, stage IV (severe): Code(s): N18.4 - Chronic kidney disease, stage 4 (severe) Status: Chronic Assessment and Plan: baseline creatine averages around 2.0 - 2.7mg/dl thought to be secondary to her HTN, DM, cardiac/vascular disease and need for diuretics to maintain her volume status noted fluctuations in kidney function due to fluid status and necessity of diuretics (3) Acute and chronic respiratory failure with hypoxia: Code(s): J96.21 - Acute and chronic respiratory failure with hypoxia Status: Acute Assessment and Plan: currently on more than baseline oxygen requirements recent CXR results noted - pneumonia versus pulmonary edema versus both Echo shows severe aortic stenosis and severe pulmonary hypertension. on diuretics ( furosemide and metolazone) and antibiotics pulmonary on the case. I appreciate his input. (4) CHF (congestive heart failure): Qualifiers: Heart failure chronicity: acute on chronic Heart failure type: unspecified Qualified Code(s): I50.9 - Heart failure, unspecified Code(s): I50.9 - Heart failure, unspecified Status: Chronic Assessment and Plan: follows with Dr. Ritter despite valvular heart disease, deemed too high risk for surgical intervention On Lasix 20 IV push daily and metolazone. (5) Hypertension: Code(s): I10 - Essential (primary) hypertension Status: Chronic Assessment and Plan: hypotension resolved slowly reintroduce anti-HTN medications when needed. She is back on her carvedilol. Systolic 120-150. (6) Anemia: Code(s): D64.9 - Anemia, unspecified Status: Chronic Assessment and Plan: due to CKD and acute illness empirically start Epogen T sat was checked on the 5th and this was suggestive of sufficient iron stores. (7) Diabetes: Code(s): E11.9 - Type 2 diabetes mellitus without complications Status: Chronic Assessment and Plan: On Accu-Cheks and sliding-scale insulin. Subjective Date/time seen: 03/31/21 07:26 Interval history: Patient feels okay. Still short of breath But about the same as yesterday. Humphries catheter was placed last evening. Still on lots of oxygen per [employer] Exam Narrative: General: WD/WN female in NAD Heart: normal S1 and S2; no rub or gallop Lungs: coarse breath sounds with scattered crackles Abdomen: soft, nontender, nondistended, positive bowel sounds Extremities: no cyanosis or clubbing; no edema Skin: No rash or cyanosis Objective Data Vital Signs Vital Signs: Vital Signs - 24 hr 03/30/21 07:48 03/30/21 07:59 03/30/21 08:00 Temperature Pulse Rate 66 66 66 Respiratory Rate 18 Blood Pressure Pulse Oximetry 95 03/30/21 08:10 03/30/21 08:14 03/30/21 08:23 Temperature Pulse Rate 65 Respiratory Rate 18 Blood Pressure Pulse Oximetry 95 97 03/30/21 08:33 03/30/21 09:05 03/30/21 10:00 Temperature Pulse Rate 65 Respiratory Rate 18 Blood Pressure Pulse Oximetry 98 92 03/30/21 11:44 03/30/21 11:53 03/30/21 12:00 Temperature Pulse Rate 63 65 64 Respiratory Rate 18 18 Blood Pressure Pulse Oximetry 03/30/21 13:11 03/30/21 14:43 03/30/21 16:00 Temperature 36.8 C Pulse Rate 65 63 65 Respiratory Rate 16 Blood Pressure 114/45 L Pulse Oximetry 97 98 03/30/21 16:30 03/30/21 16:36 03/30/21 16:42 Temperature Pulse Rate 66 65
[2021-03-31] MEDS: IPRATROPIUM BR 0.02% INH SOLN 0.5 MG/2.5 ML VIAL INHALATION ×4 (08:12→23:14)
[2021-03-31] MEDS: ALBUTEROL SULFATE NEB 2.5 MG/0.5 ML INH INHALATION ×4 (08:12→23:14)
[2021-03-31 08:13] LABS: Glucose Point of Care 167 mg/dl (65-105)
[2021-03-31] MEDS: methylPREDNISolone SOD SUCC 125 MG VIAL 60 MG IV PUSH (09:03)
[2021-03-31] MEDS: FUROSEMIDE INJ 40 MG/4 ML VIAL 20 MG IV PUSH (09:03)
[2021-03-31] MEDS: ENOXAPARIN 30 MG/0.3 ML SYRINGE SUB-Q (09:04)
[2021-03-31] MEDS: THERAPEUTIC MULTIVITAMINS/MINERALS TAB (*BKC) 1 TABLET PO (09:04)
[2021-03-31] MEDS: FLUTICASONE PROPIONATE 0.05% NA SPR 16 GM BTL (*BKC) 2 SPRAY NASAL (09:04)
[2021-03-31] MEDS: amLODIPine BESYLATE 5 MG TABLET 10 MG PO (09:05)
[2021-03-31] MEDS: FERROUS SULFATE 324 MG TABLET PO (09:05)
[2021-03-31] MEDS: ASPIRIN 81 MG ENTERIC TABLET PO (09:05)
[2021-03-31] MEDS: ASCORBIC ACID 500 MG TABLET 1000 MG PO (09:05)
[2021-03-31] MEDS: carvediloL 25 MG TABLET PO ×2 (09:05→20:16)
[2021-03-31] MEDS: MAGNESIUM OXIDE 200 MG TABLET PO ×2 (09:06→17:45)
[2021-03-31] MEDS: metOLazone 5 MG TABLET PO (09:06)
[2021-03-31] MEDS: ATORVASTATIN 40 MG TABLET PO (09:06)
[2021-03-31] MEDS: ACETAMINOPHEN 325 MG TABLET 650 MG PO (09:06)
[2021-03-31] MEDS: INSULIN GLARGINE (*BKC) 100 UNITS/ML 20 UNITS SUB-Q ×2 (09:11→17:44)
--- NOTE | 2021-03-31 10:01 | PM.PNPUL ---
Progress Note: A&P Assessment and Plan (1) Acute and chronic respiratory failure with hypoxia: Code(s): J96.21 - Acute and chronic respiratory failure with hypoxia Status: Acute Assessment and Plan: this 70-year-old female has had hypoxemic respiratory failure related to diffuse bilateral infiltrates. the patient has been on IV steroids for possible organizing pneumonia. Her respiratory status has been stable over the last 48 hours. Last chest x-ray showed to possible partial clearing of infiltrates. She continues to require high FiO2. Will continue with current Solu-Medrol dosage and monitor respiratory status. Repeat chest x-ray in a.m.. (2) Acute on chronic diastolic heart failure: Code(s): I50.33 - Acute on chronic diastolic (congestive) heart failure Status: Acute (3) CHF (congestive heart failure): Qualifiers: Heart failure chronicity: acute on chronic Heart failure type: unspecified Qualified Code(s): I50.9 - Heart failure, unspecified Code(s): I50.9 - Heart failure, unspecified Status: Chronic (4) Diabetes: Code(s): E11.9 - Type 2 diabetes mellitus without complications Status: Chronic (5) Chronic kidney disease, stage IV (severe): Code(s): N18.4 - Chronic kidney disease, stage 4 (severe) Status: Chronic (6) GISELLE (acute kidney injury): Code(s): N17.9 - Acute kidney failure, unspecified Status: Acute Subjective Date/time seen: 03/31/21 10:02 patient has had no new respiratory symptoms. She remains on high FiO2 via high-flow nasal cannula. She has no fever. She thinks her breathing is getting better. Review of Systems Review of Systems: All systems reviewed & are unremarkable except as noted in HPI and below Exam Narrative: GENERAL APPEARANCE: Well developed, well nourished, alert and cooperative, and appears to be in mild to moderate respiratory distress while on supplemental oxygen via high flow nasal cannula SKIN: Inspection of the skin reveals no rashes, ulcerations or petechiae. HEENT: Sclerae anicteric and conjunctivae pink and moist. Extraocular movements were intact and pupils were equal. The oral mucosa, hard and soft palate, tongue and posterior pharynx were normal. NECK: Supple. There was no thyroid enlargement, and no tenderness, or masses were felt. CHEST: Normal AP diameter and normal contour without any kyphoscoliosis. LUNGS: diffuse crackles bilaterally no wheezing CARDIAC: There was a regular rate and rhythm 3/6 systolic ejection murmur at apex ABDOMEN: Soft and nontender with normal bowel sounds. There was no organomegaly. LYMPH NODES: No lymphadenopathy was appreciated in the neck. EXTREMITIES: No cyanosis, clubbing or edema. NEUROLOGIC: Alert and oriented x 3. Normal affect. Objective Data Vital Signs Vital Signs: Vital Signs - 24 hr 03/30/21 11:44 03/30/21 11:53 03/30/21 12:00 Temperature Pulse Rate 63 65 64 Respiratory Rate 18 18 Blood Pressure Pulse Oximetry 03/30/21 13:11 03/30/21 14:43 03/30/21 16:00 Temperature 36.8 C Pulse Rate 65 63 65 Respiratory Rate 16 Blood Pressure 114/45 L Pulse Oximetry 97 98 03/30/21 16:30 03/30/21 16:36 03/30/21 16:42 Temperature Pulse Rate 66 65 Respiratory Rate 22 H 22 H Blood Pressure Pulse Oximetry 94 03/30/21 18:36 03/30/21 20:00 03/30/21 20:01 Temperature Pulse Rate 68 68 Respiratory Rate 22 H 22 H Blood Pressure Pulse Oximetry 99 98 94 03/30/21 20:11 03/30/21 22:11 03/30/21 22:27 Temperature 36.6 C Pulse Rate 68 63 67 Respiratory Rate 22 H 17 16 Blood Pressure 131/49 L Pulse Oximetry 96 98 03/30/21 23:10 03/30/21 23:20 03/31/21 00:00 Temperature Pulse Rate 72 72 63 Respiratory Rate 18 18 Blood Pressure Pulse Oximetry 96 03/31/21 04:00 03/31/21 04:06 03/31/21 08:03 Temperature 36.2 C L 36.8 C Pulse Rate 61 69 67 Respiratory Rate 20 12 Blood Pres
[2021-03-31 11:49] LABS: Glucose Point of Care 183 mg/dl (65-105)
--- NOTE | 2021-03-31 11:49 | PM.IMPN ---
Progress Note: A&P Assessment and Plan (1) DKA (diabetic ketoacidosis): Code(s): E11.10 - Type 2 diabetes mellitus with ketoacidosis without coma Status: Acute Assessment and Plan: patient presented with elevated blood sugars, dehydration hypovolemia and metabolic acidosis she was given IV fluid bolus and started on IV insulin drip anion gap closed and patient has been transitioned to subcutaneous insulin cautious IV fluids due to consider of congestive heart failure A1c came back at 6.6 20 units Lantus was given yesterday with subsequent severe hypoglycemia overnight. Will lower the Lantus to 5 units today and monitor Accu-Cheks She has labile blood sugar with severe hypoglycemia and severe hyperglycemia. She also has worsening renal function likely causing the lability Will continue Lantus 5 units daily along with sliding scale insulin no hypoglycemia noted over the last 24 hours (2) Hypoglycemia: Code(s): E16.2 - Hypoglycemia, unspecified Status: Acute Assessment and Plan: patient eventually became hypoglycemic and insulin drip was stopped she was started on D5 fluids patient ate this morning and now her sugars are elevated. dextrose discontinue continue to monitor sugars for now (3) Hypotension: Qualifiers: Hypotension type: unspecified hypotension type Qualified Code(s): I95.9 - Hypotension, unspecified Code(s): I95.9 - Hypotension, unspecified Status: Acute Assessment and Plan: patient was hypotensive on presentation likely secondary to hypovolemia and dehydration blood pressure has improved after IV fluid bolus off of IV fluids at this time blood pressure improved (4) Bradycardia: Code(s): R00.1 - Bradycardia, unspecified Status: Acute Assessment and Plan: improved (5) Acute and chronic respiratory failure with hypoxia: Code(s): J96.21 - Acute and chronic respiratory failure with hypoxia Status: Acute Assessment and Plan: patient is on oxygen at home and is currently on 2 L oxygen chest x-ray shows congestive heart failure hold further IV fluids Will need to re-initiate her regular diuretics Oxygen requirement has gone up most likely related to underlying CHF/COPD Continue breathing treatments as ordered Chest x-ray on 03/23/2021 remains unchanged will continue diuretics as ordered for now (6) Acute on chronic diastolic heart failure: Code(s): I50.33 - Acute on chronic diastolic (congestive) heart failure Status: Acute (7) CHF (congestive heart failure): Qualifiers: Heart failure chronicity: acute on chronic Heart failure type: unspecified Qualified Code(s): I50.9 - Heart failure, unspecified Code(s): I50.9 - Heart failure, unspecified Status: Chronic Assessment and Plan: patient does have congestive heart failure but her oxygen requirement is at baseline hold her diuretics for another 24 hours long as her oxygen need does not go up patient has aortic stenosis mitral regurgitation and mitral stenosis and tricuspid regurgitation - no intervention for those at this time Chest x-ray reviewed with worsening diffuse lung disease consistent with pneumonia versus pulmonary edema BNP in 19,000 Chest x-ray 03/23/2021 with similar diffuse lung disease noted continue diuresis as ordered (8) Chronic kidney disease, stage IV (severe): Code(s): N18.4 - Chronic kidney disease, stage 4 (severe) Status: Chronic Assessment and Plan: consult nephrology as I suspect patient is close to needing dialysis her urine output is poor and uremia is getting worse her acid-base status and electrolytes acceptable at this time (9) Elevated troponin: Code(s): R77.8 - Other specified abnormalities of plasma proteins Status: Acute (10) Moderate aortic stenosis: Code(s): I35.0 - Nonrheumatic aortic (valve) stenosis Status: Acute (
[2021-03-31] MEDS: EPOETIN ALFA-EPBX 10,000 UNITS/ML VIAL 10000 UNITS SUB-Q (13:24)
--- NOTE | 2021-03-31 14:34 | PC.NURSE ---
On 03/31/21, the student, Bill Westfall, provided care and completed [facility] documentation on this patient. I have reviewed the student's documentation and agree with the findings.
[2021-03-31 16:22] LABS: Glucose Point of Care 180 mg/dl (65-105)
--- NOTE | 2021-03-31 17:30 | PCRCNOTE ---
Window of time for administration has passed. See next scheduled administration.
[2021-03-31 20:12] LABS: Glucose Point of Care 247 mg/dl (65-105)
[2021-03-31] MEDS: rOPINIRole HCL 0.25 MG TABLET PO (20:16)
[2021-04-01] VITALS (25 sets, daily range): BP systolic 113–147; BP diastolic 45–58; PULSE 52–68; RESP 16–18; TEMP 35.6–36.4; O2SAT 94–99
[2021-04-01] MEDS: ACETAMINOPHEN 325 MG TABLET 650 MG PO ×2 (02:18→23:20)
[2021-04-01] MEDS: IPRATROPIUM BR 0.02% INH SOLN 0.5 MG/2.5 ML VIAL INHALATION ×5 (04:11→19:59)
[2021-04-01] MEDS: ALBUTEROL SULFATE NEB 2.5 MG/0.5 ML INH INHALATION ×5 (04:11→19:59)
[2021-04-01 07:58] LABS: Glucose Point of Care 195 mg/dl (65-105)
[2021-04-01] MEDS: calcitrioL 0.25 MCG CAPSULE PO (07:59)
[2021-04-01] MEDS: THERAPEUTIC MULTIVITAMINS/MINERALS TAB (*BKC) 1 TABLET PO (07:59)
[2021-04-01] MEDS: FERROUS SULFATE 324 MG TABLET PO (07:59)
[2021-04-01] MEDS: ASCORBIC ACID 500 MG TABLET 1000 MG PO (08:00)
[2021-04-01] MEDS: ASPIRIN 81 MG ENTERIC TABLET PO (08:00)
[2021-04-01] MEDS: ATORVASTATIN 40 MG TABLET PO (08:00)
[2021-04-01] MEDS: carvediloL 25 MG TABLET PO ×2 (08:00→20:16)
[2021-04-01] MEDS: MAGNESIUM OXIDE 200 MG TABLET PO ×2 (08:00→17:17)
[2021-04-01] MEDS: metOLazone 5 MG TABLET PO (08:00)
[2021-04-01] MEDS: ENOXAPARIN 30 MG/0.3 ML SYRINGE SUB-Q (08:00)
[2021-04-01] MEDS: FUROSEMIDE INJ 40 MG/4 ML VIAL 20 MG IV PUSH (08:00)
[2021-04-01] MEDS: amLODIPine BESYLATE 5 MG TABLET 10 MG PO (08:00)
[2021-04-01] MEDS: methylPREDNISolone SOD SUCC 125 MG VIAL 60 MG IV PUSH (08:00)
[2021-04-01] MEDS: FLUTICASONE PROPIONATE 0.05% NA SPR 16 GM BTL (*BKC) 2 SPRAY NASAL (08:00)
[2021-04-01] MEDS: INSULIN GLARGINE (*BKC) 100 UNITS/ML 20 UNITS SUB-Q ×2 (08:07→17:18)
[2021-04-01 08:40] LABS: Hematocrit 31.4 % (37.0-47.0); Hemoglobin 10.3 g/dL (12.0-15.0); Mean Corpuscular HGB Conc 32.8 g/dl (32-36); Mean Corpuscular Hemoglobin 32.2 pg (26-34); Mean Corpuscular Volume 98.1 fl (80-100); Mean Platelet Volume 10.8 fl (7.4-10.4); Platelet Count Result 417 k/mm3 (150-375); Red Cell Distribution Width 14.6 % (11.5-14.5); White Blood Count 11.4 K/mm3 (4.5-10.0)
[2021-04-01 08:53] LABS: Albumin Level 3.2 g/dL (3.5-5.1); Anion Gap 5 mmol/L (8-16); Blood Urea Nitrogen 103 mg/dL (7-17); Calcium 8.8 mg/dL (8.4-10.2); Carbon Dioxide 31 mmol/L (22-30); Chloride 96 mmol/L (98-107); Estimated CRCL calculation 20 ml/min; Estimated Glomerular Filt Rate 23; Glucose 194 mg/dL (65-110); Phosphorus 3.4 mg/dL (2.5-4.5); Potassium 4.6 mmol/L (3.4-5.0); Sodium 132 mmol/L (137-145)
[2021-04-01 11:59] LABS: Glucose Point of Care 255 mg/dl (65-105)
[2021-04-01] MEDS: INSULIN ASPART (*BKC) 100 UNITS/ML SUB-Q ×2 (12:06→17:16)
--- NOTE | 2021-04-01 12:11 | P.PNNP_ITS ---
Progress Note: A&P Assessment and Plan (1) GISELLE (acute kidney injury): Code(s): N17.9 - Acute kidney failure, unspecified Status: Acute Assessment and Plan: * GISELLE. Creatinine peaked at 2.8. renal function back to baseline in the low 2s. * likely due to a combination of volume depletion and hypotension on admission * She is on metolazone and furosemide. I talked with Dr. Nicholson. Thinks this is all post COVID scarring. I agree that she has not really improved since we put her on diuretics. Will leave her on the Lasix but stop the metolazone. * She has a Humphries catheter in. We will see how her urine output does. (2) Chronic kidney disease, stage IV (severe): Code(s): N18.4 - Chronic kidney disease, stage 4 (severe) Status: Chronic Assessment and Plan: * baseline creatine averages around 2.0 - 2.7mg/dl * thought to be secondary to her HTN, DM, cardiac/vascular disease and need for diuretics to maintain her volume status * noted fluctuations in kidney function due to fluid status and necessity of diuretics (3) Acute and chronic respiratory failure with hypoxia: Code(s): J96.21 - Acute and chronic respiratory failure with hypoxia Status: Acute Assessment and Plan: * currently on more than baseline oxygen requirements * recent CXR results noted - pneumonia versus pulmonary edema versus both * Echo shows severe aortic stenosis and severe pulmonary hypertension. * on diuretics ( furosemide and metolazone) and antibiotics * Stop metolazone * pulmonary on the case. I appreciate his input. (4) CHF (congestive heart failure): Qualifiers: Heart failure chronicity: acute on chronic Heart failure type: unspecified Qualified Code(s): I50.9 - Heart failure, unspecified Code(s): I50.9 - Heart failure, unspecified Status: Chronic Assessment and Plan: * follows with Dr. Ritter * despite valvular heart disease, deemed too high risk for surgical intervention * On Lasix 20 IV push daily (5) Hypertension: Code(s): I10 - Essential (primary) hypertension Status: Chronic Assessment and Plan: * hypotension resolved * slowly reintroduce anti-HTN medications when needed. She is back on her carvedilol. * Systolic 120-150. (6) Anemia: Code(s): D64.9 - Anemia, unspecified Status: Chronic Assessment and Plan: * due to CKD and acute illness * empirically start Epogen * T sat was checked on the 5th and this was suggestive of sufficient iron stores. (7) Diabetes: Code(s): E11.9 - Type 2 diabetes mellitus without complications Status: Chronic Assessment and Plan: * On Accu-Cheks and sliding-scale insulin. Subjective Date/time seen: 04/01/21 12:11 Interval history: Patient feels okay. Still short of breath She looks weaker to me Still on lots of oxygen per [employer] Exam Narrative: General: WD/WN female in NAD Heart: normal S1 and S2; no rub or gallop Lungs: coarse breath sounds with scattered crackles Abdomen: soft, nontender, nondistended, positive bowel sounds Extremities: no cyanosis or clubbing; no edema Skin: No rash or cyanosis Objective Data Vital Signs Vital Signs: Vital Signs - 24 hr 03/31/21 12:25 03/31/21 12:34 03/31/21 13:20 Temperature 36.6 C Pulse Rate 74 74 58 L Respiratory Rate 18 18 16 Blood Pressure 137/50 L
--- NOTE | 2021-04-01 12:11 | PM.PNNEP ---
Progress Note: A&P Assessment and Plan (1) GISELLE (acute kidney injury): Code(s): N17.9 - Acute kidney failure, unspecified Status: Acute Assessment and Plan: GISELLE. Creatinine peaked at 2.8. renal function back to baseline in the low 2s. likely due to a combination of volume depletion and hypotension on admission She is on metolazone and furosemide. I talked with Dr. Nicholson. Thinks this is all post COVID scarring. I agree that she has not really improved since we put her on diuretics. Will leave her on the Lasix but stop the metolazone. She has a Humphries catheter in. We will see how her urine output does. (2) Chronic kidney disease, stage IV (severe): Code(s): N18.4 - Chronic kidney disease, stage 4 (severe) Status: Chronic Assessment and Plan: baseline creatine averages around 2.0 - 2.7mg/dl thought to be secondary to her HTN, DM, cardiac/vascular disease and need for diuretics to maintain her volume status noted fluctuations in kidney function due to fluid status and necessity of diuretics (3) Acute and chronic respiratory failure with hypoxia: Code(s): J96.21 - Acute and chronic respiratory failure with hypoxia Status: Acute Assessment and Plan: currently on more than baseline oxygen requirements recent CXR results noted - pneumonia versus pulmonary edema versus both Echo shows severe aortic stenosis and severe pulmonary hypertension. on diuretics ( furosemide and metolazone) and antibiotics Stop metolazone pulmonary on the case. I appreciate his input. (4) CHF (congestive heart failure): Qualifiers: Heart failure chronicity: acute on chronic Heart failure type: unspecified Qualified Code(s): I50.9 - Heart failure, unspecified Code(s): I50.9 - Heart failure, unspecified Status: Chronic Assessment and Plan: follows with Dr. Ritter despite valvular heart disease, deemed too high risk for surgical intervention On Lasix 20 IV push daily (5) Hypertension: Code(s): I10 - Essential (primary) hypertension Status: Chronic Assessment and Plan: hypotension resolved slowly reintroduce anti-HTN medications when needed. She is back on her carvedilol. Systolic 120-150. (6) Anemia: Code(s): D64.9 - Anemia, unspecified Status: Chronic Assessment and Plan: due to CKD and acute illness empirically start Epogen T sat was checked on the 5th and this was suggestive of sufficient iron stores. (7) Diabetes: Code(s): E11.9 - Type 2 diabetes mellitus without complications Status: Chronic Assessment and Plan: On Accu-Cheks and sliding-scale insulin. Subjective Date/time seen: 04/01/21 12:11 Interval history: Patient feels okay. Still short of breath She looks weaker to me Still on lots of oxygen per [employer] Exam Narrative: General: WD/WN female in NAD Heart: normal S1 and S2; no rub or gallop Lungs: coarse breath sounds with scattered crackles Abdomen: soft, nontender, nondistended, positive bowel sounds Extremities: no cyanosis or clubbing; no edema Skin: No rash or cyanosis Objective Data Vital Signs Vital Signs: Vital Signs - 24 hr 03/31/21 12:25 03/31/21 12:34 03/31/21 13:20 Temperature 36.6 C Pulse Rate 74 74 58 L Respiratory Rate 18 18 16 Blood Pressure 137/50 L Pulse Oximetry 94 03/31/21 16:00 03/31/21 20:00 03/31/21 20:01 Temperature Pulse Rate 60 74 58 L Respiratory Rate 18 18 Blood Pressure Pulse Oximetry 95 03/31/21 20:11 03/31/21 20:16 03/31/21 21:25 Temperature 36.6 C Pulse Rate 59 L 74 90 Respiratory Rate 18 18 Blood Pressure 129/60 Pulse Oximetry 94 03/31/21 23:15 03/31/21 23:25 04/01/21 00:00 Temperature Pulse Rate 72 75 52 L Respiratory Rate 18 18 Blood Pressure Pulse Oximetry 04/01/21 04:00 04/01/21 04:14 04/01/21 04:15 Kg
--- NOTE | 2021-04-01 13:01 | P.PNIM_ITS ---
Progress Note: A&P Assessment and Plan (1) DKA (diabetic ketoacidosis): Code(s): E11.10 - Type 2 diabetes mellitus with ketoacidosis without coma Status: Acute Assessment and Plan: patient presented with elevated blood sugars, dehydration hypovolemia and metabolic acidosis she was given IV fluid bolus and started on IV insulin drip anion gap closed and patient has been transitioned to subcutaneous insulin cautious IV fluids due to consider of congestive heart failure A1c came back at 6.6 20 units Lantus was given yesterday with subsequent severe hypoglycemia overnight. Will lower the Lantus to 5 units today and monitor Accu-Cheks She has labile blood sugar with severe hypoglycemia and severe hyperglycemia. She also has worsening renal function likely causing the lability Will continue Lantus 5 units daily along with sliding scale insulin no hypoglycemia noted over the last 24 hours (2) Hypoglycemia: Code(s): E16.2 - Hypoglycemia, unspecified Status: Acute Assessment and Plan: patient eventually became hypoglycemic and insulin drip was stopped she was started on D5 fluids patient ate this morning and now her sugars are elevated. dextrose discontinue continue to monitor sugars for now (3) Hypotension: Qualifiers: Hypotension type: unspecified hypotension type Qualified Code(s): I95.9 - Hypotension, unspecified Code(s): I95.9 - Hypotension, unspecified Status: Acute Assessment and Plan: patient was hypotensive on presentation likely secondary to hypovolemia and dehydration blood pressure has improved after IV fluid bolus off of IV fluids at this time blood pressure improved (4) Bradycardia: Code(s): R00.1 - Bradycardia, unspecified Status: Acute Assessment and Plan: improved (5) Acute and chronic respiratory failure with hypoxia: Code(s): J96.21 - Acute and chronic respiratory failure with hypoxia Status: Acute Assessment and Plan: patient is on oxygen at home and is currently on 2 L oxygen chest x-ray shows congestive heart failure hold further IV fluids Will need to re-initiate her regular diuretics Oxygen requirement has gone up most likely related to underlying CHF/COPD Continue breathing treatments as ordered Chest x-ray on 03/23/2021 remains unchanged will continue diuretics as ordered for now (6) Acute on chronic diastolic heart failure: Code(s): I50.33 - Acute on chronic diastolic (congestive) heart failure Status: Acute (7) CHF (congestive heart failure): Qualifiers: Heart failure chronicity: acute on chronic Heart failure type: unspecified Qualified Code(s): I50.9 - Heart failure, unspecified Code(s): I50.9 - Heart failure, unspecified Status: Chronic Assessment and Plan: patient does have congestive heart failure but her oxygen requirement is at baseline hold her diuretics for another 24 hours long as her oxygen need does not go up patient has aortic stenosis mitral regurgitation and mitral stenosis and tricuspid regurgitation - no intervention for those at this time Chest x-ray reviewed with worsening diffuse lung disease consistent with pneumonia versus pulmonary edema BNP in 19,000 Chest x-ray 03/23/2021 with similar diffuse lung disease noted continue diuresis as ordered (8) Chronic kidney disease, stage IV (severe): Code(s): N18.4 - Chronic kidney disease, stage 4 (severe) Status: Chronic Assessment and Plan: consult nephrology as I suspect patient is close to needing dialysis
[2021-04-01] MEDS: DICYCLOMINE HCL 10 MG CAPSULE PO (15:00)
--- NOTE | 2021-04-01 15:05 | PM.PNPUL ---
Progress Note: A&P Assessment and Plan (1) Acute and chronic respiratory failure with hypoxia: Code(s): J96.21 - Acute and chronic respiratory failure with hypoxia Status: Acute Assessment and Plan: this 70-year-old female has had hypoxemic respiratory failure related to diffuse bilateral infiltrates. the patient has been on IV steroids for possible organizing pneumonia. respiratory status essentially unchanged over the last 24 hours. Continue with current regimen, monitor respiratory status. Repeat chest x-ray in a.m.. (2) Acute on chronic diastolic heart failure: Code(s): I50.33 - Acute on chronic diastolic (congestive) heart failure Status: Acute (3) CHF (congestive heart failure): Qualifiers: Heart failure chronicity: acute on chronic Heart failure type: unspecified Qualified Code(s): I50.9 - Heart failure, unspecified Code(s): I50.9 - Heart failure, unspecified Status: Chronic (4) Diabetes: Code(s): E11.9 - Type 2 diabetes mellitus without complications Status: Chronic (5) Chronic kidney disease, stage IV (severe): Code(s): N18.4 - Chronic kidney disease, stage 4 (severe) Status: Chronic (6) GISELLE (acute kidney injury): Code(s): N17.9 - Acute kidney failure, unspecified Status: Acute Subjective Date/time seen: 04/01/21 15:05 patient has no new respiratory symptoms. She remains on high-flow nasal cannula with essentially unchanged O2 saturation. patient stated that dyspnea is less than before. Review of Systems Review of Systems: All systems reviewed & are unremarkable except as noted in HPI and below Exam Narrative: GENERAL APPEARANCE: Well developed, well nourished, alert and cooperative, and appears to be in mild to moderate respiratory distress while on supplemental oxygen via high flow nasal cannula SKIN: Inspection of the skin reveals no rashes, ulcerations or petechiae. HEENT: Sclerae anicteric and conjunctivae pink and moist. Extraocular movements were intact and pupils were equal. The oral mucosa, hard and soft palate, tongue and posterior pharynx were normal. NECK: Supple. There was no thyroid enlargement, and no tenderness, or masses were felt. CHEST: Normal AP diameter and normal contour without any kyphoscoliosis. LUNGS: diffuse crackles bilaterally no wheezing CARDIAC: There was a regular rate and rhythm 3/6 systolic ejection murmur at apex ABDOMEN: Soft and nontender with normal bowel sounds. There was no organomegaly. LYMPH NODES: No lymphadenopathy was appreciated in the neck. EXTREMITIES: No cyanosis, clubbing or edema. NEUROLOGIC: Alert and oriented x 3. Normal affect. Objective Data Vital Signs Vital Signs: Vital Signs - 24 hr 03/31/21 16:00 03/31/21 20:00 03/31/21 20:01 Temperature Pulse Rate 60 74 58 L Respiratory Rate 18 18 Blood Pressure Pulse Oximetry 95 03/31/21 20:11 03/31/21 20:16 03/31/21 21:25 Temperature 36.6 C Pulse Rate 59 L 74 90 Respiratory Rate 18 18 Blood Pressure 129/60 Pulse Oximetry 94 03/31/21 23:15 03/31/21 23:25 04/01/21 00:00 Temperature Pulse Rate 72 75 52 L Respiratory Rate 18 18 Blood Pressure Pulse Oximetry 04/01/21 04:00 04/01/21 04:14 04/01/21 04:15 Temperature Pulse Rate 52 L 53 L Respiratory Rate 16 Blood Pressure Pulse Oximetry 96 04/01/21 04:24 04/01/21 06:32 04/01/21 08:00 Temperature 35.6 C L Pulse Rate 58 L 55 L 60 Respiratory Rate 16 18 Blood Pressure 147/45 H Pulse Oximetry 99 04/01/21 08:29 04/01/21 08:32 04/01/21 08:37 Temperature Pulse Rate 61 62 Respiratory Rate 16 16 Blood Pressure Pulse Oximetry 96 04/01/21 12:00 04/01/21 12:40 04/01/21 12:42 Temperature Pulse Rate 64 60 Respiratory Rate 16 Blood Pressure Pulse Oximetry 94 04/01/21 12:49 Temperature Pulse Rate 64 Respiratory Rate 16 Blood Pressure Pulse Oximetry I
[2021-04-01 17:12] LABS: Glucose Point of Care 295 mg/dl (65-105)
--- NOTE | 2021-04-01 17:49 | PM.CNCAR ---
Assessment and Plan Assessment and plan (1) Aortic valve stenosis: Qualifiers: Cardiac valve disease etiology: etiology unspecified Qualified Code(s): I35.0 - Nonrheumatic aortic (valve) stenosis Code(s): I35.0 - Nonrheumatic aortic (valve) stenosis Status: Chronic Assessment and Plan: Severe calcific aortic valve stenosis peak velocity 3.8 m/sec mean gradient 35 mm Hg previous valve area 0.7 centimeter squared overestimated on most recent echocardiogram with valve area 1.2 centimeter squared. Patient was previously slated to undergo surgical aortic valve replacement along with mitral valve repair and or replacement due to significant mitral regurgitation. However, this was postponed due to her COVID infection and associated complications. She is being managed at [facility]. She is hemodynamically stable from this perspective. There can be nothing more done at this institution. I believe transfer to outside facility with higher level of care such as [facility] is appropriate. She will continue to be at high risk for decompensation due to her valve disease and would be best served at a tertiary care centers. Avoid hypotension and or overly aggressive diuresis. (2) Acute and chronic respiratory failure with hypoxia: Code(s): J96.21 - Acute and chronic respiratory failure with hypoxia Status: Acute Assessment and Plan: Patient has a very complicated medical history and prolonged hospitalization. By echocardiogram moderate LVH lower limits normal EF 50-55% moderate to severe peak velocity 3.8 m/sec mean 35 mm Hg. Aortic valve area 1.2 centimeter squared likely overestimated. She is clinically improving after her prolonged hospitalization which appears to be predominantly related to interstitial infiltrate and underlying lung disease complicated by COVID-19 pneumonia. (3) Pulmonary hypertension: Code(s): I27.20 - Pulmonary hypertension, unspecified Status: Acute Assessment and Plan: Markedly severe pulmonary hypertension noted on echocardiogram this hospitalization at 113 mm Hg. Pulmonary hypertension could not be estimated on prior echocardiogram for comparison. (4) Acute on chronic diastolic heart failure: Code(s): I50.33 - Acute on chronic diastolic (congestive) heart failure Status: Acute Assessment and Plan: She is compensated at this time. Continue current diuretic to medical therapy. Transfer to outside hospital pending. (5) Acute on chronic renal failure: Qualifiers: Acute renal failure type: unspecified Chronic kidney disease stage: stage 4 (severe) Qualified Code(s): N17.9 - Acute kidney failure, unspecified; N18.4 - Chronic kidney disease, stage 4 (severe) Code(s): N17.9 - Acute kidney failure, unspecified; N18.9 - Chronic kidney disease, unspecified Status: Acute Assessment and Plan: Marked BUN elevation but creatinine essentially at baseline. Nephrology following. Tolerating current therapy. (6) Junctional rhythm: Code(s): I49.8 - Other specified cardiac arrhythmias Status: Acute Assessment and Plan: Noted had will presentation March 20, 2021 by EKG. EKG has not been repeated subsequently. Repeat 12 lead EKG. She remains off AV kamila blocking agents which seems appropriate given the circumstances. History of Present Illness History of Present Illness Consult date/time: Date of service: 04/01/21 17:49 Cardiology consultation at the request of Dr. Wayne for our opinion regarding aortic stenosis and CHF Requesting physician: Yolis Wayne MD Consult reason: congestive heart failure and Other (Aortic stenosis) Reason For Visit: DKA Narrative: Patient is a very complicated 70-year-old female with a past medical history significant for heart failure with preserved ejection, hypertension, diabetes mellitus, hyperlipidemia, obstructive
[2021-04-01] MEDS: rOPINIRole HCL 0.25 MG TABLET PO (20:18)
[2021-04-01 20:58] LABS: Glucose Point of Care 364 mg/dl (65-105)
[2021-04-01] MEDS: INSULIN ASPART (*BKC) 100 UNITS/ML 6 UNITS SUB-Q (22:35)
[2021-04-02] VITALS (22 sets, daily range): BP systolic 120–141; BP diastolic 50–65; PULSE 56–69; RESP 16–20; TEMP 35.9–37; O2SAT 94–100
[2021-04-02] MEDS: ALBUTEROL SULFATE NEB 2.5 MG/0.5 ML INH INHALATION ×6 (04:11→19:59)
[2021-04-02] MEDS: IPRATROPIUM BR 0.02% INH SOLN 0.5 MG/2.5 ML VIAL INHALATION ×6 (04:11→19:59)
[2021-04-02 05:54] LABS: Hemoglobin 9.4 g/dL (12.0-15.0); Mean Corpuscular HGB Conc 32.4 g/dl (32-36); Mean Corpuscular Volume 98.6 fl (80-100); Mean Platelet Volume 10.8 fl (7.4-10.4); Platelet Count Result 408 k/mm3 (150-375); Red Blood Count 2.94 M/mm3 (4.2-5.4); Red Cell Distribution Width 14.5 % (11.5-14.5); White Blood Count 11.3 K/mm3 (4.5-10.0)
[2021-04-02 06:24] LABS: Albumin Level 2.9 g/dL (3.5-5.1); Anion Gap 5 mmol/L (8-16); Blood Urea Nitrogen 108 mg/dL (7-17); Calcium 8.6 mg/dL (8.4-10.2); Carbon Dioxide 29 mmol/L (22-30); Chloride 94 mmol/L (98-107); Estimated CRCL calculation 19 ml/min; Estimated Glomerular Filt Rate 22; Glucose 221 mg/dL (65-110); Phosphorus 3.2 mg/dL (2.5-4.5); Potassium 4.5 mmol/L (3.4-5.0); Sodium 128 mmol/L (137-145)
[2021-04-02 07:50] LABS: Glucose Point of Care 196 mg/dl (65-105)
--- NOTE | 2021-04-02 08:00 | ECG_ITS ---
Measurements Intervals [place] Rate: 60 P: 38 DC: 173 QRS: -11 QRSD: 144 T: -7 QT: 420 QTc: 421 Interpretive Statements SINUS RHYTHM RIGHT BUNDLE BRANCH BLOCK HIGH LATERAL INFARCT, AGE INDETERMINATE BASELINE ARTIFACT- I, III, AVL, AVF, V1 ABNORMAL ECG Electronically Signed On 04-02-2021 12:16:26 [employer] by Levon Azevedo D.O.
--- NOTE | 2021-04-02 08:28 | PM.PNPUL ---
Progress Note: A&P Assessment and Plan (1) Acute and chronic respiratory failure with hypoxia: Code(s): J96.21 - Acute and chronic respiratory failure with hypoxia Status: Acute Assessment and Plan: this 70-year-old female has had hypoxemic respiratory failure related to diffuse bilateral infiltrates. the patient has been on IV steroids for possible organizing pneumonia. Chest x-ray done today showed partial clearing of bilateral infiltrates in comparison to chest x-ray done on March 24. Patient also thinks her breathing is improving. She has no other respiratory symptoms such as cough wheezing or orthopnea. Will recheck CRP, start titrating FiO2. Continue with same Solu-Medrol dose at this point (2) Acute on chronic diastolic heart failure: Code(s): I50.33 - Acute on chronic diastolic (congestive) heart failure Status: Acute (3) CHF (congestive heart failure): Qualifiers: Heart failure chronicity: acute on chronic Heart failure type: unspecified Qualified Code(s): I50.9 - Heart failure, unspecified Code(s): I50.9 - Heart failure, unspecified Status: Chronic (4) Diabetes: Code(s): E11.9 - Type 2 diabetes mellitus without complications Status: Chronic (5) Chronic kidney disease, stage IV (severe): Code(s): N18.4 - Chronic kidney disease, stage 4 (severe) Status: Chronic (6) GISELLE (acute kidney injury): Code(s): N17.9 - Acute kidney failure, unspecified Status: Acute Subjective Date/time seen: 04/02/21 08:28 Patient stated her breathing is getting better. She has no new respiratory symptoms. O2 saturation 99% on 30 liters/minute via high-flow nasal cannula. No significant orthopnea in supine position. Was evaluated by Cardiology Review of Systems Review of Systems: All systems reviewed & are unremarkable except as noted in HPI and below Exam Narrative: GENERAL APPEARANCE: Well developed, well nourished, alert and cooperative, and appears to be in mild to moderate respiratory distress while on supplemental oxygen via high flow nasal cannula SKIN: Inspection of the skin reveals no rashes, ulcerations or petechiae. HEENT: Sclerae anicteric and conjunctivae pink and moist. Extraocular movements were intact and pupils were equal. The oral mucosa, hard and soft palate, tongue and posterior pharynx were normal. NECK: Supple. There was no thyroid enlargement, and no tenderness, or masses were felt. CHEST: Normal AP diameter and normal contour without any kyphoscoliosis. LUNGS: diffuse crackles bilaterally no wheezing CARDIAC: There was a regular rate and rhythm 3/6 systolic ejection murmur at apex ABDOMEN: Soft and nontender with normal bowel sounds. There was no organomegaly. LYMPH NODES: No lymphadenopathy was appreciated in the neck. EXTREMITIES: No cyanosis, clubbing or edema. NEUROLOGIC: Alert and oriented x 3. Normal affect. Objective Data Vital Signs Vital Signs: Vital Signs - 24 hr 04/01/21 08:29 04/01/21 08:32 04/01/21 08:37 Temperature Pulse Rate 61 62 Respiratory Rate 16 16 Blood Pressure Pulse Oximetry 96 04/01/21 12:00 04/01/21 12:40 04/01/21 12:42 Temperature Pulse Rate 64 60 Respiratory Rate 16 Blood Pressure Pulse Oximetry 94 04/01/21 12:49 04/01/21 14:00 04/01/21 16:00 Temperature 36.1 C L Pulse Rate 64 59 L 62 Respiratory Rate 16 18 Blood Pressure 113/58 L Pulse Oximetry 96 04/01/21 16:28 04/01/21 16:31 04/01/21 16:37 Temperature Pulse Rate 62 65 Respiratory Rate 16 16 Blood Pressure Pulse Oximetry 95 04/01/21 19:59 04/01/21 20:04 04/01/21 20:11 Temperature Pulse Rate 66 57 L 67 Respiratory Rate 16 16 Blood Pressure Pulse Oximetry 04/01/21 20:16 04/01/21 20:18 04/01/21 20:38 Temperature 36.4 C Pulse Rate 60 60 60 Respiratory Rate 18 17 Blood Pressure 137/54 L Pulse Oximetry 97 97 04/02/21 00:01 04/02
[2021-04-02] MEDS: FLUTICASONE PROPIONATE 0.05% NA SPR 16 GM BTL (*BKC) 2 SPRAY NASAL (08:36)
[2021-04-02] MEDS: MAGNESIUM OXIDE 200 MG TABLET PO ×2 (08:36→18:04)
[2021-04-02] MEDS: FERROUS SULFATE 324 MG TABLET PO (08:36)
[2021-04-02] MEDS: ASPIRIN 81 MG ENTERIC TABLET PO (08:36)
[2021-04-02] MEDS: ENOXAPARIN 30 MG/0.3 ML SYRINGE SUB-Q (08:36)
[2021-04-02] MEDS: amLODIPine BESYLATE 5 MG TABLET 10 MG PO (08:36)
[2021-04-02] MEDS: carvediloL 25 MG TABLET PO ×2 (08:37→20:57)
[2021-04-02] MEDS: ATORVASTATIN 40 MG TABLET PO (08:37)
[2021-04-02] MEDS: THERAPEUTIC MULTIVITAMINS/MINERALS TAB (*BKC) 1 TABLET PO (08:37)
[2021-04-02] MEDS: ASCORBIC ACID 500 MG TABLET 1000 MG PO (08:37)
[2021-04-02] MEDS: INSULIN GLARGINE (*BKC) 100 UNITS/ML 20 UNITS SUB-Q ×2 (08:37→18:04)
[2021-04-02] MEDS: methylPREDNISolone SOD SUCC 125 MG VIAL 60 MG IV PUSH (08:38)
[2021-04-02] MEDS: FUROSEMIDE INJ 40 MG/4 ML VIAL 20 MG IV PUSH (08:38)
[2021-04-02 09:09] LABS: CRP 1.1 mg/dL (<1.0)
--- NOTE | 2021-04-02 10:46 | PCNFU ---
Nutrition Follow-Up Complete: Inadequate oral intake on admit as related to DKA as evidenced by limited po intake reported. goal: Adequate Intake of at least 75% of meals/supplements Patient is meeting goal. No new goal. Pt current nutrition is DBCC with Glucerna shakes BID. Last recorded weight is 59.9 kg, down from 61.5 kg on admit. Bowel Motility:Last BM reported 04/01 Labs Reviewed:Glu 108,Alb 2.9,Cr 2.2, BUN 108, Hct 29.0,Hgb 9.4 Meds Noted:Lantus, Atrovent, Solu Medrol, Lipitor, Oscal, Lovenox, Coreg, Vit C Skin: WNL Additional Notes: Patient remain on a DBCC diet with Glucerna shakes BID. Patient eating greater than 75% of breakfast today. O2 status at 30 Liters of High flow. Agree with diet orders. Monitoring: RD will monitor every 5 days.
[2021-04-02 11:30] LABS: Glucose Point of Care 239 mg/dl (65-105)
[2021-04-02] MEDS: INSULIN ASPART (*BKC) 100 UNITS/ML SUB-Q ×2 (12:22→18:03)
[2021-04-02] MEDS: EPOETIN ALFA-EPBX 10,000 UNITS/ML VIAL 10000 UNITS SUB-Q (14:00)
[2021-04-02] MEDS: ACETAMINOPHEN 325 MG TABLET 650 MG PO (16:00)
--- NOTE | 2021-04-02 16:17 | P.PNNP_ITS ---
Progress Note: A&P Assessment and Plan (1) GISELLE (acute kidney injury): Code(s): N17.9 - Acute kidney failure, unspecified Status: Acute Assessment and Plan: * GISELLE. resolved. * creatinine still in the low 2s at baseline * BUN has crept up to above 100. will cut down on diuretics to h elp this. (2) Chronic kidney disease, stage IV (severe): Code(s): N18.4 - Chronic kidney disease, stage 4 (severe) Status: Chronic Assessment and Plan: * baseline creatine averages around 2.0 - 2.7mg/dl * thought to be secondary to her HTN, DM, cardiac/vascular disease and need for diuretics to maintain her volume status * noted fluctuations in kidney function due to fluid status and necessity of diuretics (3) Acute and chronic respiratory failure with hypoxia: Code(s): J96.21 - Acute and chronic respiratory failure with hypoxia Status: Acute Assessment and Plan: * currently on more than baseline oxygen requirements * recent CXR results noted - pneumonia versus pulmonary edema versus both * Echo shows severe aortic stenosis and severe pulmonary hypertension. * on furosemide 20 iv daily. * with higher BUN will hold for a day or two then resume oral laisx. * high dose diuretics did not help the pulmonary situation. (4) CHF (congestive heart failure): Qualifiers: Heart failure chronicity: acute on chronic Heart failure type: unspecified Qualified Code(s): I50.9 - Heart failure, unspecified Code(s): I50.9 - Heart failure, unspecified Status: Chronic Assessment and Plan: * follows with Dr. Ritter * despite valvular heart disease, deemed too high risk for surgical intervention (5) Hypertension: Code(s): I10 - Essential (primary) hypertension Status: Chronic Assessment and Plan: * hypotension resolved * slowly reintroduce anti-HTN medications when needed. She is back on her carvedilol. * Systolic 120-150. (6) Anemia: Code(s): D64.9 - Anemia, unspecified Status: Chronic Assessment and Plan: * due to CKD and acute illness * empirically start Epogen * T sat was checked on the 5th and this was suggestive of sufficient iron stores. (7) Diabetes: Code(s): E11.9 - Type 2 diabetes mellitus without complications Status: Chronic Assessment and Plan: * On Accu-Cheks and sliding-scale insulin. Subjective Date/time seen: 04/02/21 16:18 Interval history: Patient feels okay. Still short of breath daughter in the room. we discussed the case Still on lots of oxygen per Airvo Exam Narrative: General: WD/WN female in NAD Heart: normal S1 and S2; no rub or gallop Lungs: coarse breath sounds with scattered crackles Abdomen: soft, nontender, nondistended, positive bowel sounds Extremities: no cyanosis or clubbing; no edema Skin: No rash or cyanosis Objective Data Vital Signs Vital Signs: Vital Signs - 24 hr 04/01/21 16:28 04/01/21 16:31 04/01/21 16:37 Temperature Pulse Rate 62 65 Respiratory Rate 16 16 Blood Pressure Pulse Oximetry 95 04/01/21 19:59 04/01/21 20:04 04/01/21 20:11 Temperature Pulse Rate 66 57 L 67 Respiratory Rate 16 16 Blood Pressure Pulse Oximetry 04/01/21 20:16 04/01/21 20:18 04/01/21
--- NOTE | 2021-04-02 16:17 | PM.PNNEP ---
Progress Note: A&P Assessment and Plan (1) GISELLE (acute kidney injury): Code(s): N17.9 - Acute kidney failure, unspecified Status: Acute Assessment and Plan: GISELLE. resolved. creatinine still in the low 2s at baseline BUN has crept up to above 100. will cut down on diuretics to h elp this. (2) Chronic kidney disease, stage IV (severe): Code(s): N18.4 - Chronic kidney disease, stage 4 (severe) Status: Chronic Assessment and Plan: baseline creatine averages around 2.0 - 2.7mg/dl thought to be secondary to her HTN, DM, cardiac/vascular disease and need for diuretics to maintain her volume status noted fluctuations in kidney function due to fluid status and necessity of diuretics (3) Acute and chronic respiratory failure with hypoxia: Code(s): J96.21 - Acute and chronic respiratory failure with hypoxia Status: Acute Assessment and Plan: currently on more than baseline oxygen requirements recent CXR results noted - pneumonia versus pulmonary edema versus both Echo shows severe aortic stenosis and severe pulmonary hypertension. on furosemide 20 iv daily. with higher BUN will hold for a day or two then resume oral laisx. high dose diuretics did not help the pulmonary situation. (4) CHF (congestive heart failure): Qualifiers: Heart failure chronicity: acute on chronic Heart failure type: unspecified Qualified Code(s): I50.9 - Heart failure, unspecified Code(s): I50.9 - Heart failure, unspecified Status: Chronic Assessment and Plan: follows with Dr. Ritter despite valvular heart disease, deemed too high risk for surgical intervention (5) Hypertension: Code(s): I10 - Essential (primary) hypertension Status: Chronic Assessment and Plan: hypotension resolved slowly reintroduce anti-HTN medications when needed. She is back on her carvedilol. Systolic 120-150. (6) Anemia: Code(s): D64.9 - Anemia, unspecified Status: Chronic Assessment and Plan: due to CKD and acute illness empirically start Epogen T sat was checked on the and this was suggestive of sufficient iron stores. (7) Diabetes: Code(s): E11.9 - Type 2 diabetes mellitus without complications Status: Chronic Assessment and Plan: On Accu-Cheks and sliding-scale insulin. Subjective Date/time seen: 04/02/21 16:18 Interval history: Patient feels okay. Still short of breath daughter in the room. we discussed the case Still on lots of oxygen per Airvo Exam Narrative: General: WD/WN female in NAD Heart: normal S1 and S2; no rub or gallop Lungs: coarse breath sounds with scattered crackles Abdomen: soft, nontender, nondistended, positive bowel sounds Extremities: no cyanosis or clubbing; no edema Skin: No rash or cyanosis Objective Data Vital Signs Vital Signs: Vital Signs - 24 hr 04/01/21 16:28 04/01/21 16:31 04/01/21 16:37 Temperature Pulse Rate 62 65 Respiratory Rate 16 16 Blood Pressure Pulse Oximetry 95 04/01/21 19:59 04/01/21 20:04 04/01/21 20:11 Temperature Pulse Rate 66 57 L 67 Respiratory Rate 16 16 Blood Pressure Pulse Oximetry 04/01/21 20:16 04/01/21 20:18 04/01/21 20:38 Temperature 36.4 C Pulse Rate 60 60 60 Respiratory Rate 18 17 Blood Pressure 137/54 L Pulse Oximetry 97 97 04/02/21 00:01 04/02/21 00:05 04/02/21 00:10 Temperature Pulse Rate 62 56 L 68 Respiratory Rate 16 16 Blood Pressure Pulse Oximetry 04/02/21 04:04 04/02/21 04:11 04/02/21 04:21 Temperature Pulse Rate 58 L 65 69 Respiratory Rate 16 18 Blood Pressure Pulse Oximetry 04/02/21 05:14 04/02/21 08:00 04/02/21 08:30 Temperature 36.6 C Pulse Rate 61 56 L Respiratory Rate 16 Blood Pressure 133/50 L Pulse Oximetry 99 98 04/02/21 08:37 04/02/21 08:45 04/02/21 12:00 Temperature
[2021-04-02 17:07] LABS: Glucose Point of Care 239 mg/dl (65-105)
[2021-04-02 19:34] LABS: Glucose Point of Care 295 mg/dl (65-105)
--- NOTE | 2021-04-02 20:04 | PCRCNOTE ---
Addendum entered by Dominique Funez, [employer] 04/02/21 20:16: Correction: Pt is wearing Airvo (high flow O2 therapy), not high flow nasal cannula. Original Note: Pt states that she prefers to wear the HFNC at night rather than her home CPAP or the hospital CPAP because the oxygen in the nose is more comfortable. We discussed the benefits of CPAP over HFNC, but pt still refuses CPAP.
[2021-04-02] MEDS: rOPINIRole HCL 0.25 MG TABLET PO (20:57)
[2021-04-03] VITALS (25 sets, daily range): BP systolic 133–156; BP diastolic 50–56; PULSE 53–62; RESP 16–22; TEMP 35.9–36.3; O2SAT 6–98
[2021-04-03] MEDS: IPRATROPIUM BR 0.02% INH SOLN 0.5 MG/2.5 ML VIAL INHALATION ×6 (00:45→19:35)
[2021-04-03] MEDS: ALBUTEROL SULFATE NEB 2.5 MG/0.5 ML INH INHALATION ×6 (00:46→19:35)
[2021-04-03 06:15] LABS: Glucose Point of Care 115 mg/dl (65-105)
[2021-04-03 07:12] LABS: Albumin Level 2.9 g/dL (3.5-5.1); Anion Gap 7 mmol/L (8-16); Blood Urea Nitrogen 111 mg/dL (7-17); Calcium 8.7 mg/dL (8.4-10.2); Carbon Dioxide 28 mmol/L (22-30); Chloride 96 mmol/L (98-107); Estimated CRCL calculation 20 ml/min; Estimated Glomerular Filt Rate 23; Glucose 102 mg/dL (65-110); Phosphorus 3.8 mg/dL (2.5-4.5); Potassium 4.2 mmol/L (3.4-5.0); Sodium 131 mmol/L (137-145)
[2021-04-03 07:37] LABS: Glucose Point of Care 92 mg/dl (65-105)
[2021-04-03] MEDS: ENOXAPARIN 30 MG/0.3 ML SYRINGE SUB-Q (08:09)
[2021-04-03] MEDS: THERAPEUTIC MULTIVITAMINS/MINERALS TAB (*BKC) 1 TABLET PO (08:09)
[2021-04-03] MEDS: INSULIN GLARGINE (*BKC) 100 UNITS/ML 20 UNITS SUB-Q ×2 (08:09→17:02)
[2021-04-03] MEDS: carvediloL 25 MG TABLET PO ×2 (08:09→20:25)
[2021-04-03] MEDS: FLUTICASONE PROPIONATE 0.05% NA SPR 16 GM BTL (*BKC) 2 SPRAY NASAL (08:09)
[2021-04-03] MEDS: MAGNESIUM OXIDE 200 MG TABLET PO ×2 (08:09→17:02)
[2021-04-03] MEDS: ATORVASTATIN 40 MG TABLET PO (08:10)
[2021-04-03] MEDS: ASCORBIC ACID 500 MG TABLET 1000 MG PO (08:10)
[2021-04-03] MEDS: ASPIRIN 81 MG ENTERIC TABLET PO (08:10)
[2021-04-03] MEDS: methylPREDNISolone SOD SUCC 125 MG VIAL 60 MG IV PUSH (08:11)
[2021-04-03] MEDS: FERROUS SULFATE 324 MG TABLET PO (08:11)
[2021-04-03] MEDS: calcitrioL 0.25 MCG CAPSULE PO (08:11)
[2021-04-03] MEDS: amLODIPine BESYLATE 5 MG TABLET 10 MG PO (08:11)
[2021-04-03] MEDS: WATER, STERILE FOR INJECTION 10 ML VIAL 20 ML XX (09:30)
[2021-04-03] MEDS: WATER FOR IRRIGATION, STERILE 1,000 ML BOTTLE 1000 ML (09:30)
--- NOTE | 2021-04-03 09:34 | PM.PNPUL ---
Progress Note: A&P Assessment and Plan (1) Acute and chronic respiratory failure with hypoxia: Code(s): J96.21 - Acute and chronic respiratory failure with hypoxia Status: Acute Assessment and Plan: this 70-year-old female has had hypoxemic respiratory failure related to diffuse bilateral infiltrates. the patient has been on IV steroids for possible organizing pneumonia. Last Chest x-ray showed partial clearing of bilateral infiltrates in comparison to chest x-ray done on March 24. Patient also thinks her breathing is improving. She has no other respiratory symptoms such as cough wheezing or orthopnea. Oxygen supplemental oxygen flow was now decreased to 2 liters/minute with adequate oxyhemoglobin saturation. Will discontinue IV steroids and switch patient to prednisone 40 mg p.o. daily starting in a.m.. Encourage out of bed to chair, physical therapy at bedside. (2) Acute on chronic diastolic heart failure: Code(s): I50.33 - Acute on chronic diastolic (congestive) heart failure Status: Acute (3) CHF (congestive heart failure): Qualifiers: Heart failure chronicity: acute on chronic Heart failure type: unspecified Qualified Code(s): I50.9 - Heart failure, unspecified Code(s): I50.9 - Heart failure, unspecified Status: Chronic (4) Diabetes: Code(s): E11.9 - Type 2 diabetes mellitus without complications Status: Chronic (5) Chronic kidney disease, stage IV (severe): Code(s): N18.4 - Chronic kidney disease, stage 4 (severe) Status: Chronic (6) GISELLE (acute kidney injury): Code(s): N17.9 - Acute kidney failure, unspecified Status: Acute Subjective Date/time seen: 04/03/21 09:34 Patient stated her breathing is getting better. She has no new respiratory symptoms. oxygen flow was decreased down to 2 liters/minute. Last O2 saturation around 97% on 2 liters/minute. Review of Systems Review of Systems: All systems reviewed & are unremarkable except as noted in HPI and below Exam Narrative: GENERAL APPEARANCE: Well developed, well nourished, alert and cooperative, and appears to be in mild to moderate respiratory distress while on supplemental oxygen via high flow nasal cannula SKIN: Inspection of the skin reveals no rashes, ulcerations or petechiae. HEENT: Sclerae anicteric and conjunctivae pink and moist. Extraocular movements were intact and pupils were equal. The oral mucosa, hard and soft palate, tongue and posterior pharynx were normal. NECK: Supple. There was no thyroid enlargement, and no tenderness, or masses were felt. CHEST: Normal AP diameter and normal contour without any kyphoscoliosis. LUNGS: diffuse crackles bilaterally no wheezing CARDIAC: There was a regular rate and rhythm 3/6 systolic ejection murmur at apex ABDOMEN: Soft and nontender with normal bowel sounds. There was no organomegaly. LYMPH NODES: No lymphadenopathy was appreciated in the neck. EXTREMITIES: No cyanosis, clubbing or edema. NEUROLOGIC: Alert and oriented x 3. Normal affect. Objective Data Vital Signs Vital Signs: Vital Signs - 24 hr 04/02/21 12:00 04/02/21 13:29 04/02/21 14:16 Temperature 37.0 C Pulse Rate 65 63 Respiratory Rate 18 16 Blood Pressure 120/65 Pulse Oximetry 94 99 04/02/21 16:00 04/02/21 16:15 04/02/21 19:59 Temperature Pulse Rate 57 L 66 58 L Respiratory Rate 20 16 Blood Pressure Pulse Oximetry 95 04/02/21 20:04 04/02/21 20:08 04/02/21 20:56 Temperature Pulse Rate 58 L 57 L 60 Respiratory Rate 16 16 Blood Pressure Pulse Oximetry 100 04/02/21 20:57 04/02/21 21:17 04/03/21 00:09 Temperature 35.9 C L Pulse Rate 60 58 L 53 L Respiratory Rate 16 Blood Pressure 141/55 H Pulse Oximetry 100 04/03/21 00:46 04/03/21 00:55 04/03/21 00:57 Temperature Pulse Rate 54 L 56 L Respiratory Rate 16 16 Blood Pressure Pulse Oximetry 96 04/03/21 04:04 04/03/21
[2021-04-03] MEDS: ACETAMINOPHEN 325 MG TABLET 650 MG PO ×2 (11:16→17:01)
[2021-04-03 11:34] LABS: Glucose Point of Care 132 mg/dl (65-105)
--- NOTE | 2021-04-03 11:45 | PCRCNOTE ---
Pt. weaned from AERVO to 2l/m NC. Co-treated with PT for education: energy conservation tech., PLB and o2 titration for activity. Pt was able to stand and sit x's 3 and transfer to chair at bedside with assist of 1, gait belt and walker. Pt encouraged by her progress. Weaned back to 2l/m at rest., 7l/m with activity at this time. Will cont. to monitor and wean o2 as able.
--- NOTE | 2021-04-03 13:04 | P.PNNP_ITS ---
Progress Note: A&P Assessment and Plan (1) GISELLE (acute kidney injury): Code(s): N17.9 - Acute kidney failure, unspecified Status: Acute Assessment and Plan: * GISELLE. resolved. * creatinine still in the low 2s at baseline * BUN has crept up to 111 * her diuretics have been reduced. Dr. Carrington also reduced her steroids which might help the BUN as well. * The patient has no uremic symptoms. Her appetite isn't the greatest , and the high BUN may be contributing to this, but I think her pulmonary issues are also responsible for this. (2) Chronic kidney disease, stage IV (severe): Code(s): N18.4 - Chronic kidney disease, stage 4 (severe) Status: Chronic Assessment and Plan: * baseline creatine averages around 2.0 - 2.7mg/dl * thought to be secondary to her HTN, DM, cardiac/vascular disease and need for diuretics to maintain her volume status * noted fluctuations in kidney function due to fluid status and necessity of diuretics (3) Acute and chronic respiratory failure with hypoxia: Code(s): J96.21 - Acute and chronic respiratory failure with hypoxia Status: Acute Assessment and Plan: * currently on more than baseline oxygen requirements * recent CXR results noted - pneumonia versus pulmonary edema versus both * Echo shows severe aortic stenosis and severe pulmonary hypertension. * Diuretics on hold * high dose diuretics did not help the pulmonary situation. (4) CHF (congestive heart failure): Qualifiers: Heart failure chronicity: acute on chronic Heart failure type: unspecified Qualified Code(s): I50.9 - Heart failure, unspecified Code(s): I50.9 - Heart failure, unspecified Status: Chronic Assessment and Plan: * follows with Dr. Ritter * despite valvular heart disease, deemed too high risk for surgical intervention (5) Hypertension: Code(s): I10 - Essential (primary) hypertension Status: Chronic Assessment and Plan: * systolic between 120 and 156. * slowly reintroduce anti-HTN medications when needed. She is back on her carvedilol. (6) Anemia: Code(s): D64.9 - Anemia, unspecified Status: Chronic Assessment and Plan: * due to CKD and acute illness * empirically start Epogen * T sat was checked on the 5th and this was suggestive of sufficient iron stores. (7) Diabetes: Code(s): E11.9 - Type 2 diabetes mellitus without complications Status: Chronic Assessment and Plan: * On Accu-Cheks and sliding-scale insulin. Subjective Date/time seen: 04/03/21 13:04 Interval history: Patient feels okay. she looks better. She is sitting up in a chair. She is on nasal cannula only, no longer on Airvo I discussed with Dr. Nicholson Exam Narrative: General: WD/WN female in NAD Heart: normal S1 and S2; no rub or gallop Lungs: coarse breath sounds with scattered crackles Abdomen: soft, nontender, nondistended, positive bowel sounds Extremities: no cyanosis or clubbing; no edema Skin: No rash Objective Data Vital Signs Vital Signs: Vital Signs - 24 hr 04/02/21 13:29 04/02/21 14:16 04/02/21 16:00 Temperature 37.0 C Pulse Rate 63 57 L Respiratory Rate 16 Blood Pressure 120/65 Pulse Oximetry 94 99 04/02/21 16:15 04/02/21 19:59 04/02/21 20:04 Temperature
--- NOTE | 2021-04-03 13:04 | PM.PNNEP ---
Progress Note: A&P Assessment and Plan (1) GISELLE (acute kidney injury): Code(s): N17.9 - Acute kidney failure, unspecified Status: Acute Assessment and Plan: GISELLE. resolved. creatinine still in the low 2s at baseline BUN has crept up to 111 her diuretics have been reduced. Dr. Carrington also reduced her steroids which might help the BUN as well. The patient has no uremic symptoms. Her appetite isn't the greatest , and the high BUN may be contributing to this, but I think her pulmonary issues are also responsible for this. (2) Chronic kidney disease, stage IV (severe): Code(s): N18.4 - Chronic kidney disease, stage 4 (severe) Status: Chronic Assessment and Plan: baseline creatine averages around 2.0 - 2.7mg/dl thought to be secondary to her HTN, DM, cardiac/vascular disease and need for diuretics to maintain her volume status noted fluctuations in kidney function due to fluid status and necessity of diuretics (3) Acute and chronic respiratory failure with hypoxia: Code(s): J96.21 - Acute and chronic respiratory failure with hypoxia Status: Acute Assessment and Plan: currently on more than baseline oxygen requirements recent CXR results noted - pneumonia versus pulmonary edema versus both Echo shows severe aortic stenosis and severe pulmonary hypertension. Diuretics on hold high dose diuretics did not help the pulmonary situation. (4) CHF (congestive heart failure): Qualifiers: Heart failure chronicity: acute on chronic Heart failure type: unspecified Qualified Code(s): I50.9 - Heart failure, unspecified Code(s): I50.9 - Heart failure, unspecified Status: Chronic Assessment and Plan: follows with Dr. Ritter despite valvular heart disease, deemed too high risk for surgical intervention (5) Hypertension: Code(s): I10 - Essential (primary) hypertension Status: Chronic Assessment and Plan: systolic between 120 and 156. slowly reintroduce anti-HTN medications when needed. She is back on her carvedilol. (6) Anemia: Code(s): D64.9 - Anemia, unspecified Status: Chronic Assessment and Plan: due to CKD and acute illness empirically start Epogen T sat was checked on the 5th and this was suggestive of sufficient iron stores. (7) Diabetes: Code(s): E11.9 - Type 2 diabetes mellitus without complications Status: Chronic Assessment and Plan: On Accu-Cheks and sliding-scale insulin. Subjective Date/time seen: 04/03/21 13:04 Interval history: Patient feels okay. she looks better. She is sitting up in a chair. She is on nasal cannula only, no longer on Airvo I discussed with Dr. Nicholson Exam Narrative: General: WD/WN female in NAD Heart: normal S1 and S2; no rub or gallop Lungs: coarse breath sounds with scattered crackles Abdomen: soft, nontender, nondistended, positive bowel sounds Extremities: no cyanosis or clubbing; no edema Skin: No rash Objective Data Vital Signs Vital Signs: Vital Signs - 24 hr 04/02/21 13:29 04/02/21 14:16 04/02/21 16:00 Temperature 37.0 C Pulse Rate 63 57 L Respiratory Rate 16 Blood Pressure 120/65 Pulse Oximetry 94 99 04/02/21 16:15 04/02/21 19:59 04/02/21 20:04 Temperature Pulse Rate 66 58 L 58 L Respiratory Rate 20 16 Blood Pressure Pulse Oximetry 95 04/02/21 20:08 04/02/21 20:56 04/02/21 20:57 Temperature Pulse Rate 57 L 60 60 Respiratory Rate 16 16 Blood Pressure Pulse Oximetry 100 04/02/21 21:17 04/03/21 00:09 04/03/21 00:46 Temperature 35.9 C L Pulse Rate 58 L 53 L 54 L Respiratory Rate 16 16 Blood Pressure 141/55 H Pulse Oximetry 100 04/03/21 00:55 04/03/21 00:57 04/03/21 04:04 Temperature Pulse Rate 56 L 55 L Respiratory Rate 16 Blood Pressure Pulse Oximetry 96 04/03/21 04:42 04/03/21 04:48
[2021-04-03 16:45] LABS: Glucose Point of Care 214 mg/dl (65-105)
[2021-04-03] MEDS: INSULIN ASPART (*BKC) 100 UNITS/ML SUB-Q (17:02)
[2021-04-03] MEDS: rOPINIRole HCL 0.25 MG TABLET PO (20:26)
[2021-04-03 22:12] LABS: Glucose Point of Care 224 mg/dl (65-105)
[2021-04-04] VITALS (22 sets, daily range): BP systolic 120–148; BP diastolic 56–60; PULSE 56–76; RESP 16–20; TEMP 36.2–36.6; O2SAT 96–100
[2021-04-04] MEDS: IPRATROPIUM BR 0.02% INH SOLN 0.5 MG/2.5 ML VIAL INHALATION ×4 (02:40→20:02)
[2021-04-04] MEDS: ALBUTEROL SULFATE NEB 2.5 MG/0.5 ML INH INHALATION ×4 (02:40→20:02)
[2021-04-04 06:21] LABS: Anion Gap 6 mmol/L (8-16); Blood Urea Nitrogen 113 mg/dL (7-17); Calcium 8.8 mg/dL (8.4-10.2); Carbon Dioxide 29 mmol/L (22-30); Chloride 93 mmol/L (98-107); Estimated CRCL calculation 19 ml/min; Estimated Glomerular Filt Rate 22; Glucose 172 mg/dL (65-110); Potassium 4.8 mmol/L (3.4-5.0); Sodium 128 mmol/L (137-145)
[2021-04-04] MEDS: carvediloL 25 MG TABLET PO ×2 (08:03→21:58)
[2021-04-04] MEDS: predniSONE 20 MG TABLET 40 MG PO (08:03)
[2021-04-04] MEDS: ENOXAPARIN 30 MG/0.3 ML SYRINGE SUB-Q (08:03)
[2021-04-04] MEDS: ASPIRIN 81 MG ENTERIC TABLET PO (08:03)
[2021-04-04] MEDS: THERAPEUTIC MULTIVITAMINS/MINERALS TAB (*BKC) 1 TABLET PO (08:04)
[2021-04-04] MEDS: FERROUS SULFATE 324 MG TABLET PO (08:04)
[2021-04-04] MEDS: MAGNESIUM OXIDE 200 MG TABLET PO ×2 (08:04→16:05)
[2021-04-04] MEDS: FLUTICASONE PROPIONATE 0.05% NA SPR 16 GM BTL (*BKC) 2 SPRAY NASAL (08:04)
[2021-04-04] MEDS: amLODIPine BESYLATE 5 MG TABLET 10 MG PO (08:04)
[2021-04-04] MEDS: ASCORBIC ACID 500 MG TABLET 1000 MG PO (08:04)
[2021-04-04] MEDS: ATORVASTATIN 40 MG TABLET PO (08:05)
[2021-04-04] MEDS: INSULIN GLARGINE (*BKC) 100 UNITS/ML 20 UNITS SUB-Q ×2 (08:05→16:04)
[2021-04-04 08:21] LABS: Glucose Point of Care 153 mg/dl (65-105)
--- NOTE | 2021-04-04 10:21 | P.PNNP_ITS ---
Progress Note: A&P Assessment and Plan (1) GISELLE (acute kidney injury): Code(s): N17.9 - Acute kidney failure, unspecified Status: Acute Assessment and Plan: * GISELLE. resolved. * creatinine still in the low 2s at baseline * BUN has crept up to 113 * her diuretics have been reduced. Dr. Carrington also reduced her steroids which might help the BUN as well. * The patient has no uremic symptoms. Her appetite looks like it is coming back With improvement in her pulmonary situation.. (2) Chronic kidney disease, stage IV (severe): Code(s): N18.4 - Chronic kidney disease, stage 4 (severe) Status: Chronic Assessment and Plan: * baseline creatine averages around 2.0 - 2.7mg/dl * thought to be secondary to her HTN, DM, cardiac/vascular disease and need for diuretics to maintain her volume status * noted fluctuations in kidney function due to fluid status and necessity of diuretics (3) Acute and chronic respiratory failure with hypoxia: Code(s): J96.21 - Acute and chronic respiratory failure with hypoxia Status: Acute Assessment and Plan: * currently on more than baseline oxygen requirements * recent CXR results noted - pneumonia versus pulmonary edema versus both * Echo shows severe aortic stenosis and severe pulmonary hypertension. * On low-dose Lasix To start in a couple of days.. * (4) CHF (congestive heart failure): Qualifiers: Heart failure chronicity: acute on chronic Heart failure type: unspecified Qualified Code(s): I50.9 - Heart failure, unspecified Code(s): I50.9 - Heart failure, unspecified Status: Chronic Assessment and Plan: * follows with Dr. Ritter * despite valvular heart disease, deemed too high risk for surgical intervention (5) Hypertension: Code(s): I10 - Essential (primary) hypertension Status: Chronic Assessment and Plan: * systolic between 120 and 156. * slowly reintroduce anti-HTN medications when needed. She is back on her carvedilol. (6) Anemia: Code(s): D64.9 - Anemia, unspecified Status: Chronic Assessment and Plan: * due to CKD and acute illness * empirically start Epogen * T sat was checked on the 5th and this was suggestive of sufficient iron stores. (7) Diabetes: Code(s): E11.9 - Type 2 diabetes mellitus without complications Status: Chronic Assessment and Plan: * On Accu-Cheks and sliding-scale insulin. Subjective Date/time seen: 04/04/21 10:21 Interval history: Patient feels okay. She ate a good breakfast. Breathing is a little better. Exam Narrative: General: WD/WN female in NAD Heart: normal S1 and S2; no rub or gallop Lungs: coarse breath sounds at the bases Abdomen: soft, nontender, nondistended, positive bowel sounds Extremities: no cyanosis or clubbing; no edema Skin: No rash or subcu nodules Objective Data Vital Signs Vital Signs: Vital Signs - 24 hr 04/03/21 11:42 04/03/21 11:49 04/03/21 12:00 Temperature Pulse Rate 54 L 57 L 62 Respiratory Rate 22 H 22 H Blood Pressure Pulse Oximetry 04/03/21 14:10 04/03/21 16:00 04/03/21 16:54 Temperature 36.1 C L Pulse Rate 60 56 L Respiratory Rate 16 20 Blood Pressure 139/50 L Pulse Oximetry 96
--- NOTE | 2021-04-04 10:21 | PM.PNNEP ---
Progress Note: A&P Assessment and Plan (1) GISELLE (acute kidney injury): Code(s): N17.9 - Acute kidney failure, unspecified Status: Acute Assessment and Plan: GISELLE. resolved. creatinine still in the low 2s at baseline BUN has crept up to 113 her diuretics have been reduced. Dr. Carrington also reduced her steroids which might help the BUN as well. The patient has no uremic symptoms. Her appetite looks like it is coming back With improvement in her pulmonary situation.. (2) Chronic kidney disease, stage IV (severe): Code(s): N18.4 - Chronic kidney disease, stage 4 (severe) Status: Chronic Assessment and Plan: baseline creatine averages around 2.0 - 2.7mg/dl thought to be secondary to her HTN, DM, cardiac/vascular disease and need for diuretics to maintain her volume status noted fluctuations in kidney function due to fluid status and necessity of diuretics (3) Acute and chronic respiratory failure with hypoxia: Code(s): J96.21 - Acute and chronic respiratory failure with hypoxia Status: Acute Assessment and Plan: currently on more than baseline oxygen requirements recent CXR results noted - pneumonia versus pulmonary edema versus both Echo shows severe aortic stenosis and severe pulmonary hypertension. On low-dose Lasix To start in a couple of days.. (4) CHF (congestive heart failure): Qualifiers: Heart failure chronicity: acute on chronic Heart failure type: unspecified Qualified Code(s): I50.9 - Heart failure, unspecified Code(s): I50.9 - Heart failure, unspecified Status: Chronic Assessment and Plan: follows with Dr. Ritter despite valvular heart disease, deemed too high risk for surgical intervention (5) Hypertension: Code(s): I10 - Essential (primary) hypertension Status: Chronic Assessment and Plan: systolic between 120 and 156. slowly reintroduce anti-HTN medications when needed. She is back on her carvedilol. (6) Anemia: Code(s): D64.9 - Anemia, unspecified Status: Chronic Assessment and Plan: due to CKD and acute illness empirically start Epogen T sat was checked on the and this was suggestive of sufficient iron stores. (7) Diabetes: Code(s): E11.9 - Type 2 diabetes mellitus without complications Status: Chronic Assessment and Plan: On Accu-Cheks and sliding-scale insulin. Subjective Date/time seen: 04/04/21 10:21 Interval history: Patient feels okay. She ate a good breakfast. Breathing is a little better. Exam Narrative: General: WD/WN female in NAD Heart: normal S1 and S2; no rub or gallop Lungs: coarse breath sounds at the bases Abdomen: soft, nontender, nondistended, positive bowel sounds Extremities: no cyanosis or clubbing; no edema Skin: No rash or subcu nodules Objective Data Vital Signs Vital Signs: Vital Signs - 24 hr 04/03/21 11:42 04/03/21 11:49 04/03/21 12:00 Temperature Pulse Rate 54 L 57 L 62 Respiratory Rate 22 H 22 H Blood Pressure Pulse Oximetry 04/03/21 14:10 04/03/21 16:00 04/03/21 16:54 Temperature 36.1 C L Pulse Rate 60 56 L Respiratory Rate 16 20 Blood Pressure 139/50 L Pulse Oximetry 96 04/03/21 17:02 04/03/21 19:35 04/03/21 19:37 Temperature Pulse Rate 57 L 55 L Respiratory Rate 20 20 Blood Pressure Pulse Oximetry 6 L 04/03/21 19:42 04/03/21 20:00 04/03/21 20:25 Temperature 36.3 C L Pulse Rate 61 54 L 59 L Respiratory Rate 20 20 Blood Pressure 133/56 L Pulse Oximetry 97 97 04/04/21 00:00 04/04/21 02:40 04/04/21 02:51 Temperature Pulse Rate 56 L 72 76 Respiratory Rate 19 20 Blood Pressure Pulse Oximetry 04/04/21 04:00 04/04/21 05:15 04/04/21 08:00 Temperature 36.6 C Pulse Rate 57 L 60 62 Respiratory Rate 16 Blood Pressure 148/60 H Pulse Oximetry 100 97
[2021-04-04 12:02] LABS: Glucose Point of Care 230 mg/dl (65-105)
[2021-04-04] MEDS: INSULIN ASPART (*BKC) 100 UNITS/ML SUB-Q ×2 (12:37→16:34)
[2021-04-04] MEDS: ACETAMINOPHEN 325 MG TABLET 650 MG PO ×2 (12:38→21:59)
[2021-04-04] MEDS: EPOETIN ALFA-EPBX 10,000 UNITS/ML VIAL 10000 UNITS SUB-Q (14:00)
[2021-04-04 16:40] LABS: Glucose Point of Care 233 mg/dl (65-105)
[2021-04-04 20:31] LABS: Glucose Point of Care 206 mg/dl (65-105)
--- NOTE | 2021-04-04 20:46 | PM.PNPUL ---
Progress Note: A&P Assessment and Plan (1) Acute and chronic respiratory failure with hypoxia: Code(s): J96.21 - Acute and chronic respiratory failure with hypoxia Status: Acute Assessment and Plan: This 70-year-old female has had hypoxemic respiratory failure related to diffuse bilateral infiltrates. the patient has been on IV steroids for possible organizing pneumonia. Last Chest x-ray showed partial clearing of bilateral infiltrates in comparison to chest x-ray done on March 24. Patient also thinks her breathing is improving. She has no other respiratory symptoms such as cough wheezing or orthopnea. Oxygen supplemental oxygen flow was now decreased to 1 liters/minute with adequate oxyhemoglobin saturation. She is on oral prednisone 40 mg p.o. daily. Encourage out of bed to chair, physical therapy at bedside. (2) Acute on chronic diastolic heart failure: Code(s): I50.33 - Acute on chronic diastolic (congestive) heart failure Status: Acute (3) CHF (congestive heart failure): Qualifiers: Heart failure chronicity: acute on chronic Heart failure type: unspecified Qualified Code(s): I50.9 - Heart failure, unspecified Code(s): I50.9 - Heart failure, unspecified Status: Chronic (4) Diabetes: Code(s): E11.9 - Type 2 diabetes mellitus without complications Status: Chronic (5) Chronic kidney disease, stage IV (severe): Code(s): N18.4 - Chronic kidney disease, stage 4 (severe) Status: Chronic (6) GISELLE (acute kidney injury): Code(s): N17.9 - Acute kidney failure, unspecified Status: Acute Subjective Date/time seen: 04/04/21 20:46 70 year old female says that her breathing is getting better. She has no new respiratory symptoms. Oxygen flow was decreased down to 1 L/min, improved. Saturation 96% on 1 L/min. She was diagnosed with COVID at [facility] in February, and had to delay her aortic valve repair due to this. She has congestive heart failure, hypertension, hyperlipidemia, diabetes, obstructive sleep apnea on CPAP with aortic stenosis and mitral regurgitation. She was admitted here at [place] 01/27/2021 then transferred to [facility] 01/28/21 with aortic stenosis and mitral valve regurgitation with a possible surgery on 02/09/2021 which was cancelled. She required high-flow nasal cannula oxygen during the day and CPAP at night. Patient was eventually discharged to [facility] and then transferred to [place] [facility] on 03/12/2021. patient was altered mentally transferred to [facility] on 03/20/2020 with DKA, chest x-ray with diffuse interstitial alveolar infiltrates bilaterally and she required 3 L nasal cannula oxygen. Her progressive hypoxemic respiratory failure has improved, and 04/04 she has been weaned to 1 L/min. BNP was greater than 35,000 on 03/25. Creatinine is 2.10 on 03/25 improved from 2.8 on admission on 03/20 and stable from 03/16/2021. Review of Systems Review of Systems: All systems reviewed & are unremarkable except as noted in HPI and below Exam Narrative: GENERAL APPEARANCE: Well developed, well nourished, alert and cooperative, and appears to be in mild to moderate respiratory distress while on supplemental oxygen via high flow nasal cannula SKIN: Inspection of the skin reveals no rashes, ulcerations or petechiae. HEENT: Sclerae anicteric and conjunctivae pink and moist. Extraocular movements were intact and pupils were equal. CHEST: Normal AP diameter and normal contour without any kyphoscoliosis. LUNGS: diffuse crackles bilaterally no wheezing CARDIAC: There was a regular rate and rhythm 3/6 systolic ejection murmur at apex EXTREMITIES: No cyanosis, clubbing or edema. NEUROLOGIC: Alert and oriented x 3. Normal affect. Objective Data Vital Signs Vital Signs: Vital Signs - 24 hr 04/04/21 00:00 04/04/21 02:40 04/04/21 02:51 [place]
[2021-04-04] MEDS: rOPINIRole HCL 0.25 MG TABLET PO (21:58)
[2021-04-05] VITALS (20 sets, daily range): BP systolic 132–142; BP diastolic 53–61; PULSE 57–66; RESP 16–20; TEMP 36–36.4; O2SAT 94–99
[2021-04-05] MEDS: ALBUTEROL SULFATE NEB 2.5 MG/0.5 ML INH INHALATION ×4 (02:12→21:08)
[2021-04-05] MEDS: IPRATROPIUM BR 0.02% INH SOLN 0.5 MG/2.5 ML VIAL INHALATION ×4 (02:12→21:08)
[2021-04-05 06:25] LABS: Albumin Level 2.8 g/dL (3.5-5.1); Anion Gap 5 mmol/L (8-16); Blood Urea Nitrogen 115 mg/dL (7-17); Calcium 8.7 mg/dL (8.4-10.2); Carbon Dioxide 27 mmol/L (22-30); Chloride 92 mmol/L (98-107); Estimated CRCL calculation 18 ml/min; Estimated Glomerular Filt Rate 21; Glucose 162 mg/dL (65-110); Phosphorus 4.1 mg/dL (2.5-4.5); Potassium 5.1 mmol/L (3.4-5.0); Sodium 124 mmol/L (137-145)
[2021-04-05 07:47] LABS: Glucose Point of Care 180 mg/dl (65-105)
--- NOTE | 2021-04-05 08:23 | P.PNNP_ITS ---
Progress Note: A&P Assessment and Plan (1) GISELLE (acute kidney injury): Code(s): N17.9 - Acute kidney failure, unspecified Status: Acute Assessment and Plan: * GISELLE. resolved. * creatinine still in the low 2s at baseline * BUN has crept up to 115 She is scheduled to start on low-dose diuretics (2) Chronic kidney disease, stage IV (severe): Code(s): N18.4 - Chronic kidney disease, stage 4 (severe) Status: Chronic Assessment and Plan: * baseline creatine averages around 2.0 - 2.7mg/dl * thought to be secondary to her HTN, DM, cardiac/vascular disease and need for diuretics to maintain her volume status * noted fluctuations in kidney function due to fluid status and necessity of diuretics (3) Acute and chronic respiratory failure with hypoxia: Code(s): J96.21 - Acute and chronic respiratory failure with hypoxia Status: Acute Assessment and Plan: * currently on more than baseline oxygen requirements * recent CXR results noted - pneumonia versus pulmonary edema versus both * Echo shows severe aortic stenosis and severe pulmonary hypertension. * Low dose Lasix starts tomorrow. * (4) CHF (congestive heart failure): Qualifiers: Heart failure chronicity: acute on chronic Heart failure type: unspecified Qualified Code(s): I50.9 - Heart failure, unspecified Code(s): I50.9 - Heart failure, unspecified Status: Chronic Assessment and Plan: * follows with Dr. Ritter * despite valvular heart disease, deemed too high risk for surgical intervention (5) Hypertension: Code(s): I10 - Essential (primary) hypertension Status: Chronic Assessment and Plan: * systolic between 120 and 156. * slowly reintroduce anti-HTN medications when needed. She is back on her ca rvedilol. (6) Anemia: Code(s): D64.9 - Anemia, unspecified Status: Chronic Assessment and Plan: * due to CKD and acute illness * empirically started Epogen * T sat was checked on the and this was suggestive of sufficient iron stores. * Check a CBC tomorrow (7) Diabetes: Code(s): E11.9 - Type 2 diabetes mellitus without complications Status: Chronic Assessment and Plan: * On Accu-Cheks and sliding-scale insulin. Subjective Date/time seen: 04/05/21 08:23 Interval history: Patient feels okay. She ate well yesterday. ?It is too early ?to decide if she is hungry today or not. Breathing is a little better. Exam Narrative: General: WD/WN female in NAD Heart: normal S1 and S2; no rub Lungs: coarse breath sounds at the bases Abdomen: soft, nontender, nondistended, positive bowel sounds Extremities: no cyanosis or clubbing; no edema Skin: No rash Objective Data Vital Signs Vital Signs: Vital Signs - 24 hr 04/04/21 09:10 04/04/21 09:18 04/04/21 12:00 Temperature Pulse Rate 60 76 62 Respiratory Rate 20 20 Blood Pressure Pulse Oximetry 96 96 04/04/21 13:55 04/04/21 14:00 04/04/21 14:05 Temperature 36.2 C L Pulse Rate 68 57 L 74 Respiratory Rate 20 18 20 Blood Pressure 120/56 L Pulse Oximetry 96 04/04/21 16:00 04/04/21 20:00 04/04/21 20:02 Temperature Pulse Rate 58 L 57 L 56 L Respirato
--- NOTE | 2021-04-05 08:23 | PM.PNNEP ---
Progress Note: A&P Assessment and Plan (1) GISELLE (acute kidney injury): Code(s): N17.9 - Acute kidney failure, unspecified Status: Acute Assessment and Plan: GISELLE. resolved. creatinine still in the low 2s at baseline BUN has crept up to 115 She is scheduled to start on low-dose diuretics (2) Chronic kidney disease, stage IV (severe): Code(s): N18.4 - Chronic kidney disease, stage 4 (severe) Status: Chronic Assessment and Plan: baseline creatine averages around 2.0 - 2.7mg/dl thought to be secondary to her HTN, DM, cardiac/vascular disease and need for diuretics to maintain her volume status noted fluctuations in kidney function due to fluid status and necessity of diuretics (3) Acute and chronic respiratory failure with hypoxia: Code(s): J96.21 - Acute and chronic respiratory failure with hypoxia Status: Acute Assessment and Plan: currently on more than baseline oxygen requirements recent CXR results noted - pneumonia versus pulmonary edema versus both Echo shows severe aortic stenosis and severe pulmonary hypertension. Low dose Lasix starts tomorrow. (4) CHF (congestive heart failure): Qualifiers: Heart failure chronicity: acute on chronic Heart failure type: unspecified Qualified Code(s): I50.9 - Heart failure, unspecified Code(s): I50.9 - Heart failure, unspecified Status: Chronic Assessment and Plan: follows with Dr. Ritter despite valvular heart disease, deemed too high risk for surgical intervention (5) Hypertension: Code(s): I10 - Essential (primary) hypertension Status: Chronic Assessment and Plan: systolic between 120 and 156. slowly reintroduce anti-HTN medications when needed. She is back on her carvedilol. (6) Anemia: Code(s): D64.9 - Anemia, unspecified Status: Chronic Assessment and Plan: due to CKD and acute illness empirically started Epogen T sat was checked on the and this was suggestive of sufficient iron stores. Check a CBC tomorrow (7) Diabetes: Code(s): E11.9 - Type 2 diabetes mellitus without complications Status: Chronic Assessment and Plan: On Accu-Cheks and sliding-scale insulin. Subjective Date/time seen: 04/05/21 08:23 Interval history: Patient feels okay. She ate well yesterday. ?It is too early ?to decide if she is hungry today or not. Breathing is a little better. Exam Narrative: General: WD/WN female in NAD Heart: normal S1 and S2; no rub Lungs: coarse breath sounds at the bases Abdomen: soft, nontender, nondistended, positive bowel sounds Extremities: no cyanosis or clubbing; no edema Skin: No rash Objective Data Vital Signs Vital Signs: Vital Signs - 24 hr 04/04/21 09:10 04/04/21 09:18 04/04/21 12:00 Temperature Pulse Rate 60 76 62 Respiratory Rate 20 20 Blood Pressure Pulse Oximetry 96 96 04/04/21 13:55 04/04/21 14:00 04/04/21 14:05 Temperature 36.2 C L Pulse Rate 68 57 L 74 Respiratory Rate 20 18 20 Blood Pressure 120/56 L Pulse Oximetry 96 04/04/21 16:00 04/04/21 20:00 04/04/21 20:02 Temperature Pulse Rate 58 L 57 L 56 L Respiratory Rate 20 Blood Pressure Pulse Oximetry 98 96 04/04/21 20:10 04/04/21 21:53 04/04/21 21:54 Temperature 36.6 C 36.6 C Pulse Rate 58 L 58 L 58 L Respiratory Rate 20 18 18 Blood Pressure 137/58 L 137/58 L Pulse Oximetry 96 96 04/04/21 21:58 04/04/21 22:09 04/05/21 00:00 Temperature 36.6 C Pulse Rate 64 58 L 61 Respiratory Rate 18 Blood Pressure 137/58 L Pulse Oximetry 96 04/05/21 02:12 04/05/21 02:17 04/05/21 04:00 Temperature Pulse Rate 61 61 59 L Respiratory Rate 18 18 Blood Pressure Pulse Oximetry 04/05/21 06:27 04/05/21 07:59 04/05/21 08:02 Temperature 36.4 C Pulse Rate 61 59 L 59 L Respiratory Rate 18 18 Blood Pressure 142
[2021-04-05] MEDS: carvediloL 25 MG TABLET PO ×2 (09:01→20:54)
[2021-04-05] MEDS: FERROUS SULFATE 324 MG TABLET PO (09:02)
[2021-04-05] MEDS: ASPIRIN 81 MG ENTERIC TABLET PO (09:02)
[2021-04-05] MEDS: THERAPEUTIC MULTIVITAMINS/MINERALS TAB (*BKC) 1 TABLET PO (09:02)
[2021-04-05] MEDS: ATORVASTATIN 40 MG TABLET PO (09:02)
[2021-04-05] MEDS: predniSONE 20 MG TABLET 40 MG PO (09:03)
[2021-04-05] MEDS: ENOXAPARIN 30 MG/0.3 ML SYRINGE SUB-Q (09:03)
[2021-04-05] MEDS: ASCORBIC ACID 500 MG TABLET 1000 MG PO (09:03)
[2021-04-05] MEDS: amLODIPine BESYLATE 5 MG TABLET 10 MG PO (09:03)
[2021-04-05] MEDS: MAGNESIUM OXIDE 200 MG TABLET PO ×2 (09:03→16:26)
[2021-04-05] MEDS: FLUTICASONE PROPIONATE 0.05% NA SPR 16 GM BTL (*BKC) 2 SPRAY NASAL (09:14)
[2021-04-05] MEDS: INSULIN GLARGINE (*BKC) 100 UNITS/ML 20 UNITS SUB-Q ×2 (09:17→16:27)
[2021-04-05 12:05] LABS: Glucose Point of Care 250 mg/dl (65-105)
[2021-04-05] MEDS: DOXYCYCLINE HYCLATE 100 MG TABLET PO (12:23)
[2021-04-05] MEDS: INSULIN ASPART (*BKC) 100 UNITS/ML SUB-Q ×2 (12:24→16:30)
[2021-04-05] MEDS: ACETAMINOPHEN 325 MG TABLET 650 MG PO (16:27)
--- NOTE | 2021-04-05 16:30 | PM.PNPUL ---
Progress Note: A&P Assessment and Plan (1) Acute and chronic respiratory failure with hypoxia: Code(s): J96.21 - Acute and chronic respiratory failure with hypoxia Status: Acute Assessment and Plan: This 70-year-old female has had hypoxemic respiratory failure related to diffuse bilateral infiltrates. the patient has been on IV steroids for possible organizing pneumonia. Last Chest x-ray showed partial clearing of bilateral infiltrates in comparison to chest x-ray done on March 24. Patient also thinks her breathing is improving. She has no other respiratory symptoms such as cough wheezing or orthopnea. Oxygen supplemental oxygen flow was now decreased to 1 liters/minute with adequate oxyhemoglobin saturation. She is on oral prednisone 40 mg p.o. daily. Encourage out of bed to chair, physical therapy at bedside. (2) Acute on chronic diastolic heart failure: Code(s): I50.33 - Acute on chronic diastolic (congestive) heart failure Status: Acute (3) CHF (congestive heart failure): Qualifiers: Heart failure chronicity: acute on chronic Heart failure type: unspecified Qualified Code(s): I50.9 - Heart failure, unspecified Code(s): I50.9 - Heart failure, unspecified Status: Chronic (4) Diabetes: Code(s): E11.9 - Type 2 diabetes mellitus without complications Status: Chronic (5) Chronic kidney disease, stage IV (severe): Code(s): N18.4 - Chronic kidney disease, stage 4 (severe) Status: Chronic (6) GISELLE (acute kidney injury): Code(s): N17.9 - Acute kidney failure, unspecified Status: Acute Subjective Date/time seen: 04/05/21 16:30 70 year old female says that her breathing is easier, no new respiratory symptoms. Oxygen flow remains at 1 L/min, stable. She uses O2 at home. Saturation 93% on 1 L/min. She was diagnosed with COVID at [facility] in February, and had to delay her aortic valve repair due to this. She has congestive heart failure, hypertension, hyperlipidemia, diabetes, obstructive sleep apnea on CPAP with aortic stenosis and mitral regurgitation. She was admitted here at [place] 01/27/2021 then transferred to [facility] 01/28/21 with aortic stenosis and mitral valve regurgitation with a possible surgery on 02/09/2021 which was cancelled. She required high-flow nasal cannula oxygen during the day and CPAP at night. Patient was eventually discharged to [facility] and then transferred to [place] rehab on 03/12/2021. patient was altered mentally transferred to [facility] on 03/20/2020 with DKA, chest x-ray with diffuse interstitial alveolar infiltrates bilaterally and she required 3 L nasal cannula oxygen. Her progressive hypoxemic respiratory failure has improved, and 04/04 she has been weaned to 1 L/min. BNP was greater than 35,000 on 03/25. Creatinine is 2.10 on 03/25 improved from 2.8 on admission on 03/20 and stable from 03/16/2021. Review of Systems Review of Systems: All systems reviewed & are unremarkable except as noted in HPI and below Exam Narrative: GENERAL APPEARANCE: Well developed, well nourished, alert and cooperative, and appears to be in no respiratory distress while on supplemental oxygen. SKIN: Inspection of the skin reveals no rashes, ulcerations or petechiae. HEENT: Sclerae anicteric and conjunctivae pink and moist. Extraocular movements were intact and pupils were equal. CHEST: Normal AP diameter and normal contour without any kyphoscoliosis. LUNGS: diffuse crackles bilaterally no wheezing CARDIAC: There was a regular rate and rhythm 3/6 systolic ejection murmur at apex EXTREMITIES: No cyanosis, clubbing or edema. NEUROLOGIC: Alert and oriented x 3. Normal affect. Objective Data Vital Signs Vital Signs: Vital Signs - 24 hr 04/04/21 20:00 04/04/21 20:02 04/04/21 20:10 Temperature Pulse Rate 57 L 56 L 58 L Respiratory
[2021-04-05 16:58] LABS: Glucose Point of Care 290 mg/dl (65-105)
[2021-04-05 20:17] LABS: Glucose Point of Care 321 mg/dl (65-105)
[2021-04-05] MEDS: rOPINIRole HCL 0.25 MG TABLET PO (20:54)
[2021-04-05] MEDS: DICYCLOMINE HCL 10 MG CAPSULE PO (23:06)
[2021-04-06] VITALS (20 sets, daily range): BP systolic 125–133; BP diastolic 51–56; PULSE 55–72; RESP 18; TEMP 36.1–36.9; O2SAT 94–99
[2021-04-06] MEDS: DOXYCYCLINE HYCLATE 100 MG TABLET PO ×3 (00:43→23:34)
[2021-04-06] MEDS: ALBUTEROL SULFATE NEB 2.5 MG/0.5 ML INH INHALATION ×4 (02:14→20:17)
[2021-04-06] MEDS: IPRATROPIUM BR 0.02% INH SOLN 0.5 MG/2.5 ML VIAL INHALATION ×4 (02:14→20:17)
[2021-04-06 06:08] LABS: Albumin Level 2.8 g/dL (3.5-5.1); Anion Gap 3 mmol/L (8-16); Blood Urea Nitrogen 120 mg/dL (7-17); Calcium 8.6 mg/dL (8.4-10.2); Carbon Dioxide 26 mmol/L (22-30); Chloride 93 mmol/L (98-107); Estimated CRCL calculation 18 ml/min; Estimated Glomerular Filt Rate 21; Glucose 248 mg/dL (65-110); Phosphorus 4.3 mg/dL (2.5-4.5); Potassium 5.2 mmol/L (3.4-5.0); Sodium 122 mmol/L (137-145)
[2021-04-06 06:09] LABS: Hemoglobin 9.5 g/dL (12.0-15.0); Mean Corpuscular HGB Conc 32.8 g/dl (32-36); Mean Corpuscular Hemoglobin 32.8 pg (26-34); Mean Platelet Volume 10.5 fl (7.4-10.4); Platelet Count Result 420 k/mm3 (150-375); White Blood Count 16.8 K/mm3 (4.5-10.0)
[2021-04-06 07:56] LABS: Glucose Point of Care 205 mg/dl (65-105)
[2021-04-06] MEDS: ACETAMINOPHEN 325 MG TABLET 650 MG PO ×2 (07:59→16:28)
[2021-04-06] MEDS: amLODIPine BESYLATE 5 MG TABLET 10 MG PO (08:01)
[2021-04-06] MEDS: FLUTICASONE PROPIONATE 0.05% NA SPR 16 GM BTL (*BKC) 2 SPRAY NASAL (08:01)
[2021-04-06] MEDS: FERROUS SULFATE 324 MG TABLET PO (08:01)
[2021-04-06] MEDS: ENOXAPARIN 30 MG/0.3 ML SYRINGE SUB-Q (08:01)
[2021-04-06] MEDS: predniSONE 20 MG TABLET 40 MG PO (08:01)
[2021-04-06] MEDS: ASCORBIC ACID 500 MG TABLET 1000 MG PO (08:02)
[2021-04-06] MEDS: ASPIRIN 81 MG ENTERIC TABLET PO (08:02)
[2021-04-06] MEDS: carvediloL 25 MG TABLET PO ×2 (08:02→20:35)
[2021-04-06] MEDS: THERAPEUTIC MULTIVITAMINS/MINERALS TAB (*BKC) 1 TABLET PO (08:02)
[2021-04-06] MEDS: MAGNESIUM OXIDE 200 MG TABLET PO ×2 (08:02→16:29)
[2021-04-06] MEDS: calcitrioL 0.25 MCG CAPSULE PO (08:03)
[2021-04-06] MEDS: INSULIN GLARGINE (*BKC) 100 UNITS/ML 20 UNITS SUB-Q ×2 (08:03→16:28)
[2021-04-06] MEDS: FUROSEMIDE 20 MG TABLET PO (08:03)
[2021-04-06] MEDS: INSULIN ASPART (*BKC) 100 UNITS/ML SUB-Q ×3 (08:03→16:29)
[2021-04-06] MEDS: ATORVASTATIN 40 MG TABLET PO (08:03)
--- NOTE | 2021-04-06 10:41 | PM.PNPUL ---
Progress Note: A&P Assessment and Plan (1) Acute and chronic respiratory failure with hypoxia: Code(s): J96.21 - Acute and chronic respiratory failure with hypoxia Status: Acute Assessment and Plan: This 70-year-old female has had hypoxemic respiratory failure related to diffuse bilateral infiltrates. the patient has been on oral steroids for organizing pneumonia. Today's Chest x-ray showed significant clearing of bilateral infiltrates in comparison to chest x-ray done on March 24. Patient also thinks her breathing is improving. She has no other respiratory symptoms such as cough wheezing or orthopnea. Oxygen supplemental oxygen flow was now decreased to 1 liters/minute with adequate oxyhemoglobin saturation. She is on oral prednisone 40 mg p.o. daily. Encourage out of bed to chair, physical therapy at bedside. the plan is to discharge patient to a rehabilitation unit. I would continue with prednisone 30 mg p.o. daily for 6 days, followed by prednisone 25 mg daily for 5 days, followed by prednisone 20 mg p.o. daily. Patient needs to return to pulmonary clinic in approximately 2 weeks time from today while on prednisone 20 mg p.o. daily. Will sign off; please call with any questions. (2) Acute on chronic diastolic heart failure: Code(s): I50.33 - Acute on chronic diastolic (congestive) heart failure Status: Acute (3) CHF (congestive heart failure): Qualifiers: Heart failure chronicity: acute on chronic Heart failure type: unspecified Qualified Code(s): I50.9 - Heart failure, unspecified Code(s): I50.9 - Heart failure, unspecified Status: Chronic (4) Diabetes: Code(s): E11.9 - Type 2 diabetes mellitus without complications Status: Chronic (5) Chronic kidney disease, stage IV (severe): Code(s): N18.4 - Chronic kidney disease, stage 4 (severe) Status: Chronic (6) GISELLE (acute kidney injury): Code(s): N17.9 - Acute kidney failure, unspecified Status: Acute Subjective Date/time seen: 04/06/21 10:41 patient stated she feels better. She has no new respiratory symptoms. Oxygen needs have significantly decreased over the last 3 days. Currently on just 1 liter/minute via nasal cannula. Review of Systems Review of Systems: All systems reviewed & are unremarkable except as noted in HPI and below Exam Narrative: GENERAL APPEARANCE: Well developed, well nourished, alert and cooperative, and appears to be in mild to moderate respiratory distress while on supplemental oxygen via high flow nasal cannula SKIN: Inspection of the skin reveals no rashes, ulcerations or petechiae. HEENT: Sclerae anicteric and conjunctivae pink and moist. Extraocular movements were intact and pupils were equal. CHEST: Normal AP diameter and normal contour without any kyphoscoliosis. LUNGS: diffuse crackles bilaterally no wheezing CARDIAC: There was a regular rate and rhythm 3/6 systolic ejection murmur at apex EXTREMITIES: No cyanosis, clubbing or edema. NEUROLOGIC: Alert and oriented x 3. Normal affect. Objective Data Vital Signs Vital Signs: Vital Signs - 24 hr 04/05/21 12:00 04/05/21 14:00 04/05/21 14:30 Temperature 36.1 C L Pulse Rate 57 L 59 L 60 Respiratory Rate 16 20 Blood Pressure 136/61 Pulse Oximetry 94 04/05/21 16:00 04/05/21 20:00 04/05/21 20:54 Temperature Pulse Rate 60 58 L 60 Respiratory Rate Blood Pressure Pulse Oximetry 98 04/05/21 21:05 04/05/21 21:13 04/05/21 22:09 Temperature 36.0 C L Pulse Rate 57 L 59 L 61 Respiratory Rate 18 18 18 Blood Pressure 132/53 L Pulse Oximetry 99 04/05/21 23:11 04/06/21 00:00 04/06/21 02:13 Temperature Pulse Rate 59 L 60 62 Respiratory Rate 18 Blood Pressure Pulse Oximetry 99 04/06/21 04:00 04/06/21 06:48 04/06/21 08:00 Temperature 36.1 C L Pulse Rate 55 L 60 61
[2021-04-06 11:12] LABS: Glucose Point of Care 209 mg/dl (65-105)
--- NOTE | 2021-04-06 14:41 | PCNFU ---
Nutrition Follow-Up Complete: Inadequate oral intake on admit as related to DKA as evidenced by limited po intake reported. Goal: Adequate Intake of at least 75% of meals/supplements Patient has met goal. No new goal. Pt current nutrition is DBCC with Glucerna shakes BID. Last recorded weight is 60.8 kg-stable Bowel Motility:+BM reported 04/06 Labs Reviewed:Glu 248, BUN 120, GFR 21, K 5.2,Alb 2.8,Hct 29.0, Hgb 9.5 Meds Noted:Lantus, Atrovent, Solu Medrol, Lipitor, Oscal, Lovenox, Coreg, Vit C, MVI, Prednisone. Skin: WNL Additional Notes: Patient remains on a DBCC diet. Oral Intake has been good, greater than 75% of meals. Glucerna shakes are providing an additional 220 kcals and 10 gms protein. Agree with diet orders. RD will monitor every 5 days.
--- NOTE | 2021-04-06 14:47 | PCOTNOTE ---
Nurse reports, pt. will be D/C to [facility] today
--- NOTE | 2021-04-06 15:41 | P.PNNP_ITS ---
Progress Note: A&P Assessment and Plan (1) GISELLE (acute kidney injury): Code(s): N17.9 - Acute kidney failure, unspecified Status: Acute Assessment and Plan: * resolved * elevated BUN/azotemia noted -- presumably due to catabolic state and steroid therapy * restarted on diuretic therapy today (2) Chronic kidney disease, stage IV (severe): Code(s): N18.4 - Chronic kidney disease, stage 4 (severe) Status: Chronic Assessment and Plan: * baseline creatine averages around 2.0 - 2.7mg/dl * thought to be secondary to her HTN, DM, cardiac/vascular disease and need for diuretics to maintain her volume status * noted fluctuations in kidney function due to fluid status and necessity of diuretics (3) Hyponatremia: Code(s): E87.1 - Hypo-osmolality and hyponatremia Status: Acute Assessment and Plan: * due to CHF versus recent lung issues(?) * follow trend with reinstitution of diuretic therapy * start fluid restriction * follow trend of sodium (4) Acute and chronic respiratory failure with hypoxia: Code(s): J96.21 - Acute and chronic respiratory failure with hypoxia Status: Acute Assessment and Plan: * recent CXR results noted - pneumonia versus pulmonary edema versus both * Echo shows severe aortic stenosis and severe pulmonary hypertension. * back on diuretic therapy today * Pulmonary following (5) CHF (congestive heart failure): Qualifiers: Heart failure chronicity: acute on chronic Heart failure type: unspecified Qualified Code(s): I50.9 - Heart failure, unspecified Code(s): I50.9 - Heart failure, unspecified Status: Chronic Assessment and Plan: * follows with Dr. Ritter * despite valvular heart disease, deemed too high risk for surgical intervention (6) Hypertension: Code(s): I10 - Essential (primary) hypertension Status: Chronic Assessment and Plan: * reasonable control at this time * ARB on hold currently * follow trend of hemodynamics (7) Anemia: Code(s): D64.9 - Anemia, unspecified Status: Chronic Assessment and Plan: * due to CKD and acute illness * empirically started Epogen * follow trend of H/H (8) Diabetes: Code(s): E11.9 - Type 2 diabetes mellitus without complications Status: Chronic Assessment and Plan: * follow Accu-Cheks * on sliding-scale insulin. Long and extensive discussion (> 20 minutes) with patient and daughter at bedside regarding above medical issues including renal dysfunction. Will continue to follow. Subjective Date/time seen: 04/06/21 15:41 Chart reviewed since last seen - assuming care from Dr. Guerra; seems to be doing better overall; noted sodium to be trending down of the last few days; daughter at bedside and we discussed the situation; no apparent distress noted at the time of my visit. Exam Narrative: General: WD/WN female in NAD Heart: normal S1 and S2; no rub Lungs: coarse breath sounds at the bases Abdomen: soft, nontender, nondistended, positive bowel sounds Extremities: no cyanosis or clubbing; no edema Skin: warm and dry Objective Data Vital Signs Vital Signs: Vital Signs Temp Pulse Resp BP Pulse Ox 04/06/21 14:18 71 18 04/06/21 14:10 70 18 04/06/21 13:58 36.3 C L 60 18 125/56 L 94 04/06/21 12:00
--- NOTE | 2021-04-06 15:41 | PM.PNNEP ---
Progress Note: A&P Assessment and Plan (1) GISELLE (acute kidney injury): Code(s): N17.9 - Acute kidney failure, unspecified Status: Acute Assessment and Plan: resolved elevated BUN/azotemia noted -- presumably due to catabolic state and steroid therapy restarted on diuretic therapy today (2) Chronic kidney disease, stage IV (severe): Code(s): N18.4 - Chronic kidney disease, stage 4 (severe) Status: Chronic Assessment and Plan: baseline creatine averages around 2.0 - 2.7mg/dl thought to be secondary to her HTN, DM, cardiac/vascular disease and need for diuretics to maintain her volume status noted fluctuations in kidney function due to fluid status and necessity of diuretics (3) Hyponatremia: Code(s): E87.1 - Hypo-osmolality and hyponatremia Status: Acute Assessment and Plan: due to CHF versus recent lung issues(?) follow trend with reinstitution of diuretic therapy start fluid restriction follow trend of sodium (4) Acute and chronic respiratory failure with hypoxia: Code(s): J96.21 - Acute and chronic respiratory failure with hypoxia Status: Acute Assessment and Plan: recent CXR results noted - pneumonia versus pulmonary edema versus both Echo shows severe aortic stenosis and severe pulmonary hypertension. back on diuretic therapy today Pulmonary following (5) CHF (congestive heart failure): Qualifiers: Heart failure chronicity: acute on chronic Heart failure type: unspecified Qualified Code(s): I50.9 - Heart failure, unspecified Code(s): I50.9 - Heart failure, unspecified Status: Chronic Assessment and Plan: follows with Dr. Ritter despite valvular heart disease, deemed too high risk for surgical intervention (6) Hypertension: Code(s): I10 - Essential (primary) hypertension Status: Chronic Assessment and Plan: reasonable control at this time ARB on hold currently follow trend of hemodynamics (7) Anemia: Code(s): D64.9 - Anemia, unspecified Status: Chronic Assessment and Plan: due to CKD and acute illness empirically started Epogen follow trend of H/H (8) Diabetes: Code(s): E11.9 - Type 2 diabetes mellitus without complications Status: Chronic Assessment and Plan: follow Accu-Cheks on sliding-scale insulin. Long and extensive discussion (> 20 minutes) with patient and daughter at bedside regarding above medical issues including renal dysfunction. Will continue to follow. Subjective Date/time seen: 04/06/21 15:41 Chart reviewed since last seen - assuming care from Dr. Guerra; seems to be doing better overall; noted sodium to be trending down of the last few days; daughter at bedside and we discussed the situation; no apparent distress noted at the time of my visit. Exam Narrative: General: WD/WN female in NAD Heart: normal S1 and S2; no rub Lungs: coarse breath sounds at the bases Abdomen: soft, nontender, nondistended, positive bowel sounds Extremities: no cyanosis or clubbing; no edema Skin: warm and dry Objective Data Vital Signs Vital Signs: Vital Signs Temp Pulse Resp BP Pulse Ox 04/06/21 14:18 71 18 04/06/21 14:10 70 18 04/06/21 13:58 36.3 C L 60 18 125/56 L 94 04/06/21 12:00 59 L 04/06/21 08:22 65 18 04/06/21 08:18 64 99 04/06/21 08:15 66 18 04/06/21 08:02 72 04/06/21 08:00 61 98 04/06/21 06:48 36.1 C L 60 18 133/56 L 99 04/06/21 04:00 55 L 04/06/21 02:13 62 18 04/06/21 00:00 60 04/05/21 23:11 59 L 99 04/05/21 22:09 36.0 C L 61 18 132/53 L 99 04/05/21 21:13 59 L 18 04/05/21 21:05 57 L 18 04/05/21 20:54 60 04/05/21 20:00 58 L 98 Intake/Output Intake/Output: Intake & Output 04/03/21 04/04/21 04/05/21 04/06/21 23:59 23:59 23:59 23:59 Intake Total 720
[2021-04-06 16:20] LABS: Glucose Point of Care 225 mg/dl (65-105)
--- NOTE | 2021-04-06 18:51 | PM.IMPN ---
Progress Note: A&P Assessment and Plan (1) DKA (diabetic ketoacidosis): Code(s): E11.10 - Type 2 diabetes mellitus with ketoacidosis without coma Status: Acute Assessment and Plan: Recovering acute diabetic ketoacidosis. patient presented with elevated blood sugars, dehydration hypovolemia and metabolic acidosis she was given IV fluid bolus and started on IV insulin drip anion gap closed and patient has been transitioned to subcutaneous insulin cautious IV fluids due to consider of congestive heart failure A1c came back at 6.6 20 units Lantus was given yesterday with subsequent severe hypoglycemia overnight. Will lower the Lantus to 5 units today and monitor Accu-Cheks She has labile blood sugar with severe hypoglycemia and severe hyperglycemia. She also has worsening renal function likely causing the lability Will continue Lantus 5 units daily along with sliding scale insulin no hypoglycemia noted over the last 24 hours (2) Hypoglycemia: Code(s): E16.2 - Hypoglycemia, unspecified Status: Acute Assessment and Plan: patient eventually became hypoglycemic and insulin drip was stopped she was started on D5 fluids patient ate this morning and now her sugars are elevated. dextrose discontinue continue to monitor sugars for now. Accu-Chek to 205-225 range today. (3) Hypotension: Qualifiers: Hypotension type: unspecified hypotension type Qualified Code(s): I95.9 - Hypotension, unspecified Code(s): I95.9 - Hypotension, unspecified Status: Acute Assessment and Plan: patient was hypotensive on presentation likely secondary to hypovolemia and dehydration blood pressure has improved after IV fluid bolus off of IV fluids at this time blood pressure improved (4) Bradycardia: Code(s): R00.1 - Bradycardia, unspecified Status: Acute Assessment and Plan: improved (5) Acute and chronic respiratory failure with hypoxia: Code(s): J96.21 - Acute and chronic respiratory failure with hypoxia Status: Acute Assessment and Plan: patient is on oxygen at home and is currently on 2 L oxygen chest x-ray shows congestive heart failure hold further IV fluids Will need to re-initiate her regular diuretics Oxygen requirement has gone up most likely related to underlying CHF/COPD Continue breathing treatments as ordered Chest x-ray on 03/23/2021 remains unchanged will continue diuretics as ordered for now (6) Acute on chronic diastolic heart failure: Code(s): I50.33 - Acute on chronic diastolic (congestive) heart failure Status: Acute (7) CHF (congestive heart failure): Qualifiers: Heart failure chronicity: acute on chronic Heart failure type: unspecified Qualified Code(s): I50.9 - Heart failure, unspecified Code(s): I50.9 - Heart failure, unspecified Status: Chronic Assessment and Plan: patient does have congestive heart failure but her oxygen requirement is at baseline hold her diuretics for another 24 hours long as her oxygen need does not go up patient has aortic stenosis mitral regurgitation and mitral stenosis and tricuspid regurgitation - no intervention for those at this time Chest x-ray reviewed with worsening diffuse lung disease consistent with pneumonia versus pulmonary edema BNP in 19,000 Chest x-ray 03/23/2021 with similar diffuse lung disease noted continue diuresis as ordered (8) Chronic kidney disease, stage IV (severe): Code(s): N18.4 - Chronic kidney disease, stage 4 (severe) Status: Chronic Assessment and Plan: consult nephrology as I suspect patient is close to needing dialysis her urine output is poor and uremia is getting worse her acid-base status and electrolytes acceptable at this time (9) Elevated troponin: Code(s): R77.8 - Other specified abnormalities of plasma proteins Status: Acute (10) Moderate aortic stenosis:
[2021-04-06] MEDS: rOPINIRole HCL 0.25 MG TABLET PO (20:34)
[2021-04-06 21:10] LABS: Glucose Point of Care 242 mg/dl (65-105)
[2021-04-06] MEDS: WATER FOR IRRIGATION, STERILE 1,000 ML BOTTLE 1000 ML (21:22)
[2021-04-07] VITALS (21 sets, daily range): BP systolic 121–140; BP diastolic 60–79; PULSE 54–72; RESP 15–18; TEMP 36.5–36.7; O2SAT 98–100
[2021-04-07] MEDS: ALBUTEROL SULFATE NEB 2.5 MG/0.5 ML INH INHALATION ×4 (02:13→21:16)
[2021-04-07] MEDS: IPRATROPIUM BR 0.02% INH SOLN 0.5 MG/2.5 ML VIAL INHALATION ×4 (02:13→21:16)
[2021-04-07 08:41] LABS: Glucose Point of Care 158 mg/dl (65-105)
[2021-04-07] MEDS: ASCORBIC ACID 500 MG TABLET 1000 MG PO (09:09)
[2021-04-07] MEDS: amLODIPine BESYLATE 5 MG TABLET 10 MG PO (09:09)
[2021-04-07] MEDS: THERAPEUTIC MULTIVITAMINS/MINERALS TAB (*BKC) 1 TABLET PO (09:09)
[2021-04-07] MEDS: ATORVASTATIN 40 MG TABLET PO (09:09)
[2021-04-07] MEDS: carvediloL 25 MG TABLET PO ×2 (09:09→20:33)
[2021-04-07] MEDS: MAGNESIUM OXIDE 200 MG TABLET PO ×2 (09:09→16:44)
[2021-04-07] MEDS: ASPIRIN 81 MG ENTERIC TABLET PO (09:10)
[2021-04-07] MEDS: FUROSEMIDE 20 MG TABLET PO (09:10)
[2021-04-07] MEDS: FERROUS SULFATE 324 MG TABLET PO (09:10)
[2021-04-07] MEDS: predniSONE 20 MG TABLET 40 MG PO (09:10)
[2021-04-07] MEDS: FLUTICASONE PROPIONATE 0.05% NA SPR 16 GM BTL (*BKC) 2 SPRAY NASAL (09:11)
[2021-04-07] MEDS: ENOXAPARIN 30 MG/0.3 ML SYRINGE SUB-Q (09:11)
[2021-04-07] MEDS: INSULIN GLARGINE (*BKC) 100 UNITS/ML 20 UNITS SUB-Q ×2 (09:12→16:44)
--- NOTE | 2021-04-07 10:57 | P.PNNP_ITS ---
Progress Note: A&P Assessment and Plan (1) GISELLE (acute kidney injury): Code(s): N17.9 - Acute kidney failure, unspecified Status: Acute Assessment and Plan: * resolved * elevated BUN/azotemia noted -- presumably due to catabolic state and steroid therapy * restarted on diuretic therapy today (2) Chronic kidney disease, stage IV (severe): Code(s): N18.4 - Chronic kidney disease, stage 4 (severe) Status: Chronic Assessment and Plan: * baseline creatine averages around 2.0 - 2.7mg/dl * thought to be secondary to her HTN, DM, cardiac/vascular disease and need for diuretics to maintain her volume status * noted fluctuations in kidney function due to fluid status and necessity of diuretics (3) Hyponatremia: Code(s): E87.1 - Hypo-osmolality and hyponatremia Status: Acute Assessment and Plan: * due to CHF versus recent lung issues(?) * follow trend with reinstitution of diuretic therapy * start fluid restriction * follow trend of sodium (4) Acute and chronic respiratory failure with hypoxia: Code(s): J96.21 - Acute and chronic respiratory failure with hypoxia Status: Acute Assessment and Plan: * recent CXR results noted - pneumonia versus pulmonary edema versus both * Echo shows severe aortic stenosis and severe pulmonary hypertension. * back on diuretic therapy today * Pulmonary following (5) CHF (congestive heart failure): Qualifiers: Heart failure chronicity: acute on chronic Heart failure type: unspecified Qualified Code(s): I50.9 - Heart failure, unspecified Code(s): I50.9 - Heart failure, unspecified Status: Chronic Assessment and Plan: * follows with Dr. Ritter * despite valvular heart disease, deemed too high risk for surgical intervention (6) Hypertension: Code(s): I10 - Essential (primary) hypertension Status: Chronic Assessment and Plan: * reasonable control at this time * ARB on hold currently * follow trend of hemodynamics (7) Anemia: Code(s): D64.9 - Anemia, unspecified Status: Chronic Assessment and Plan: * due to CKD and acute illness * empirically started Epogen * follow trend of H/H (8) Diabetes: Code(s): E11.9 - Type 2 diabetes mellitus without complications Status: Chronic Assessment and Plan: * follow Accu-Cheks * on sliding-scale insulin. Will continue to follow. Subjective Date/time seen: 04/07/21 10:57 No apparent distress voiced on my visit this AM;breathing/respiratory status seems stable if not better; labs this AM are still pending; no apparent distress noted; no acute issues/events overnight or earlier this morning; seems to be improving albeit slowly. Exam Narrative: General: WD/WN female in NAD Heart: normal S1 and S2; no rub Lungs: coarse breath sounds at the bases Abdomen: soft, nontender, nondistended, positive bowel sounds Extremities: no cyanosis or clubbing; no edema Skin: warm and intact Objective Data Vital Signs Vital Signs: Vital Signs Temp Pulse Resp BP Pulse Ox 04/07/21 09:16 99 04/07/21 09:11 64 16 04/07/21 09:00 64 16 04/07/21 06:17 36.7 C 66 18 140/60 99 04/07/21 05:42 36.7 C 66 18 140/60 99 04/07/21 04:05 56 L 04/07/21 02:24 62 16 04/07
--- NOTE | 2021-04-07 10:57 | PM.PNNEP ---
Progress Note: A&P Assessment and Plan (1) GISELLE (acute kidney injury): Code(s): N17.9 - Acute kidney failure, unspecified Status: Acute Assessment and Plan: resolved elevated BUN/azotemia noted -- presumably due to catabolic state and steroid therapy restarted on diuretic therapy today (2) Chronic kidney disease, stage IV (severe): Code(s): N18.4 - Chronic kidney disease, stage 4 (severe) Status: Chronic Assessment and Plan: baseline creatine averages around 2.0 - 2.7mg/dl thought to be secondary to her HTN, DM, cardiac/vascular disease and need for diuretics to maintain her volume status noted fluctuations in kidney function due to fluid status and necessity of diuretics (3) Hyponatremia: Code(s): E87.1 - Hypo-osmolality and hyponatremia Status: Acute Assessment and Plan: due to CHF versus recent lung issues(?) follow trend with reinstitution of diuretic therapy start fluid restriction follow trend of sodium (4) Acute and chronic respiratory failure with hypoxia: Code(s): J96.21 - Acute and chronic respiratory failure with hypoxia Status: Acute Assessment and Plan: recent CXR results noted - pneumonia versus pulmonary edema versus both Echo shows severe aortic stenosis and severe pulmonary hypertension. back on diuretic therapy today Pulmonary following (5) CHF (congestive heart failure): Qualifiers: Heart failure chronicity: acute on chronic Heart failure type: unspecified Qualified Code(s): I50.9 - Heart failure, unspecified Code(s): I50.9 - Heart failure, unspecified Status: Chronic Assessment and Plan: follows with Dr. Ritter despite valvular heart disease, deemed too high risk for surgical intervention (6) Hypertension: Code(s): I10 - Essential (primary) hypertension Status: Chronic Assessment and Plan: reasonable control at this time ARB on hold currently follow trend of hemodynamics (7) Anemia: Code(s): D64.9 - Anemia, unspecified Status: Chronic Assessment and Plan: due to CKD and acute illness empirically started Epogen follow trend of H/H (8) Diabetes: Code(s): E11.9 - Type 2 diabetes mellitus without complications Status: Chronic Assessment and Plan: follow Accu-Cheks on sliding-scale insulin. Will continue to follow. Subjective Date/time seen: 04/07/21 10:57 No apparent distress voiced on my visit this AM;breathing/respiratory status seems stable if not better; labs this AM are still pending; no apparent distress noted; no acute issues/events overnight or earlier this morning; seems to be improving albeit slowly. Exam Narrative: General: WD/WN female in NAD Heart: normal S1 and S2; no rub Lungs: coarse breath sounds at the bases Abdomen: soft, nontender, nondistended, positive bowel sounds Extremities: no cyanosis or clubbing; no edema Skin: warm and intact Objective Data Vital Signs Vital Signs: Vital Signs Temp Pulse Resp BP Pulse Ox 04/07/21 09:16 99 04/07/21 09:11 64 16 04/07/21 09:00 64 16 04/07/21 06:17 36.7 C 66 18 140/60 99 04/07/21 05:42 36.7 C 66 18 140/60 99 04/07/21 04:05 56 L 04/07/21 02:24 62 16 04/07/21 02:15 59 L 16 100 04/07/21 00:04 54 L 04/06/21 20:44 62 96 04/06/21 20:38 36.9 C 57 L 18 132/51 L 98 04/06/21 20:35 60 18 04/06/21 20:34 18 96 04/06/21 20:20 56 L 18 98 04/06/21 20:04 57 L 04/06/21 16:00 59 L 04/06/21 14:18 71 18 04/06/21 14:10 70 18 04/06/21 13:58 36.3 C L 60 18 125/56 L 94 04/06/21 12:00 59 L Intake/Output Intake/Output: Intake & Output 04/04/21 04/05/21 04/06/21 04/07/21 23:59 23:59 23:59 23:59 Intake Total 1180 1065 675 195 Output Total 675 575 378 Balance 505 490 297 195 Meds/Results Medicat
[2021-04-07 11:29] LABS: Albumin Level 3.3 g/dL (3.5-5.1); Anion Gap 9 mmol/L (8-16); Blood Urea Nitrogen 120 mg/dL (7-17); Calcium 8.9 mg/dL (8.4-10.2); Carbon Dioxide 25 mmol/L (22-30); Chloride 94 mmol/L (98-107); Estimated CRCL calculation 17 ml/min; Estimated Glomerular Filt Rate 20; Glucose 137 mg/dL (65-110); Phosphorus 4.2 mg/dL (2.5-4.5); Potassium 4.9 mmol/L (3.4-5.0); Sodium 128 mmol/L (137-145)
[2021-04-07 11:43] LABS: Glucose Point of Care 147 mg/dl (65-105)
[2021-04-07] MEDS: DOXYCYCLINE HYCLATE 100 MG TABLET PO ×2 (12:30→23:48)
[2021-04-07] MEDS: EPOETIN ALFA-EPBX 10,000 UNITS/ML VIAL 10000 UNITS SUB-Q (14:06)
[2021-04-07] MEDS: ACETAMINOPHEN 325 MG TABLET 650 MG PO (14:12)
--- NOTE | 2021-04-07 16:12 | PM.IMPN ---
Progress Note: A&P Assessment and Plan (1) DKA (diabetic ketoacidosis): Code(s): E11.10 - Type 2 diabetes mellitus with ketoacidosis without coma Status: Acute Assessment and Plan: Resolved acute diabetic ketoacidosis. The patient marginally presented with elevated blood sugars, dehydration hypovolemia and metabolic acidosis. she was given IV fluid bolus and started on IV insulin drip anion gap closed and patient has been transitioned to subcutaneous insulin cautious IV fluids due to consider of congestive heart failure A1c came back at 6.6 20 units Lantus was given once with subsequent severe hypoglycemia . Lantus was lowered to 5 units subQ daily while Accu-Cheks were monitored closely. Her blood sugar control has improved. There were no hypoglycemia noted over the last 24 hours. Accu-Cheks have been in the 147-158 range. (2) Hypoglycemia: Code(s): E16.2 - Hypoglycemia, unspecified Status: Acute Assessment and Plan: Resolved. Patient eventually became hypoglycemic and insulin drip was stopped she was started on D5 fluids. When patient was on Lantus 20 units subQ daily, she experienced another episode of hypoglycemia and Lantus dose was reduced. continue to monitor sugars for now. Accu-Chek in the 147-150 range today. (3) Hypotension: Qualifiers: Hypotension type: unspecified hypotension type Qualified Code(s): I95.9 - Hypotension, unspecified Code(s): I95.9 - Hypotension, unspecified Status: Acute Assessment and Plan: patient was hypotensive on presentation likely secondary to hypovolemia and dehydration blood pressure has improved after IV fluid bolus off of IV fluids at this time blood pressure improved (4) Bradycardia: Code(s): R00.1 - Bradycardia, unspecified Status: Acute Assessment and Plan: improved (5) Acute and chronic respiratory failure with hypoxia: Code(s): J96.21 - Acute and chronic respiratory failure with hypoxia Status: Acute Assessment and Plan: patient is on oxygen at home and is currently on 1 L oxygen chest x-ray shows congestive heart failure hold further IV fluids Will need to re-initiate her regular diuretics Oxygen requirement has gone up most likely related to underlying CHF/COPD Continue breathing treatments as ordered Chest x-ray on 03/23/2021 remains unchanged will continue diuretics as ordered for now. Repeat chest x-ray in a.m.. PT OT in anticipation for discharge. (6) Acute on chronic diastolic heart failure: Code(s): I50.33 - Acute on chronic diastolic (congestive) heart failure Status: Acute (7) CHF (congestive heart failure): Qualifiers: Heart failure chronicity: acute on chronic Heart failure type: unspecified Qualified Code(s): I50.9 - Heart failure, unspecified Code(s): I50.9 - Heart failure, unspecified Status: Chronic Assessment and Plan: patient does have congestive heart failure but her oxygen requirement is at baseline hold her diuretics for another 24 hours long as her oxygen need does not go up patient has aortic stenosis mitral regurgitation and mitral stenosis and tricuspid regurgitation - no intervention for those at this time Chest x-ray reviewed with worsening diffuse lung disease consistent with pneumonia versus pulmonary edema BNP in 19,000 Chest x-ray 03/23/2021 with similar diffuse lung disease noted continue diuresis as ordered (8) Chronic kidney disease, stage IV (severe): Code(s): N18.4 - Chronic kidney disease, stage 4 (severe) Status: Chronic Assessment and Plan: Creatinine has been around 2.32.4. Patient is euvolemic. Electrolytes are within acceptable range. There is no emergent indication for renal placement therapy. Preserve upper extremity vasculature in this patient who may require dialysis in her lifetime. Limb alert. Do note draw blood, put peripheral line or PICC li
[2021-04-07 16:44] LABS: Glucose Point of Care 158 mg/dl (65-105)
[2021-04-07 20:31] LABS: Glucose Point of Care 213 mg/dl (65-105)
[2021-04-07] MEDS: rOPINIRole HCL 0.25 MG TABLET PO (20:33)
[2021-04-08] VITALS (18 sets, daily range): BP systolic 113–137; BP diastolic 51–79; PULSE 54–68; RESP 15–16; TEMP 36.6–36.8; O2SAT 92–100
[2021-04-08] MEDS: IPRATROPIUM BR 0.02% INH SOLN 0.5 MG/2.5 ML VIAL INHALATION ×2 (03:00→08:53)
[2021-04-08] MEDS: ALBUTEROL SULFATE NEB 2.5 MG/0.5 ML INH INHALATION ×2 (03:00→08:53)
[2021-04-08 07:29] LABS: Glucose Point of Care 101 mg/dl (65-105)
[2021-04-08] MEDS: ENOXAPARIN 30 MG/0.3 ML SYRINGE SUB-Q (07:59)
[2021-04-08] MEDS: amLODIPine BESYLATE 5 MG TABLET 10 MG PO (07:59)
[2021-04-08] MEDS: FLUTICASONE PROPIONATE 0.05% NA SPR 16 GM BTL (*BKC) 2 SPRAY NASAL (07:59)
[2021-04-08] MEDS: predniSONE 20 MG TABLET 40 MG PO (07:59)
[2021-04-08] MEDS: ACETAMINOPHEN 325 MG TABLET 650 MG PO ×2 (07:59→17:10)
[2021-04-08] MEDS: FUROSEMIDE 20 MG TABLET PO (07:59)
[2021-04-08] MEDS: ATORVASTATIN 40 MG TABLET PO (08:00)
[2021-04-08] MEDS: MAGNESIUM OXIDE 200 MG TABLET PO ×2 (08:00→17:10)
[2021-04-08] MEDS: ASPIRIN 81 MG ENTERIC TABLET PO (08:00)
[2021-04-08] MEDS: THERAPEUTIC MULTIVITAMINS/MINERALS TAB (*BKC) 1 TABLET PO (08:00)
[2021-04-08] MEDS: FERROUS SULFATE 324 MG TABLET PO (08:00)
[2021-04-08] MEDS: calcitrioL 0.25 MCG CAPSULE PO (08:00)
[2021-04-08] MEDS: ASCORBIC ACID 500 MG TABLET 1000 MG PO (08:01)
[2021-04-08] MEDS: carvediloL 25 MG TABLET PO ×2 (08:01→20:42)
[2021-04-08] MEDS: INSULIN GLARGINE (*BKC) 100 UNITS/ML 20 UNITS SUB-Q ×2 (08:01→17:10)
[2021-04-08 11:55] LABS: Glucose Point of Care 102 mg/dl (65-105)
--- NOTE | 2021-04-08 13:07 | PM.PNNEP ---
Progress Note: A&P Assessment and Plan (1) GISELLE (acute kidney injury): Code(s): N17.9 - Acute kidney failure, unspecified Status: Acute Assessment and Plan: resolved elevated BUN/azotemia noted -- presumably due to catabolic state and steroid therapy restarted on diuretic therapy today (2) Chronic kidney disease, stage IV (severe): Code(s): N18.4 - Chronic kidney disease, stage 4 (severe) Status: Chronic Assessment and Plan: baseline creatine averages around 2.0 - 2.7mg/dl thought to be secondary to her HTN, DM, cardiac/vascular disease and need for diuretics to maintain her volume status noted fluctuations in kidney function due to fluid status and necessity of diuretics (3) Hyponatremia: Code(s): E87.1 - Hypo-osmolality and hyponatremia Status: Acute Assessment and Plan: due to CHF versus recent lung issues(?) improving with reinstitution of diuretic therapy on fluid restriction follow trend of sodium (4) Acute and chronic respiratory failure with hypoxia: Code(s): J96.21 - Acute and chronic respiratory failure with hypoxia Status: Acute Assessment and Plan: recent CXR results noted - pneumonia versus pulmonary edema versus both Echo shows severe aortic stenosis and severe pulmonary hypertension. back on diuretic therapy at this time Pulmonary following (5) CHF (congestive heart failure): Qualifiers: Heart failure chronicity: acute on chronic Heart failure type: unspecified Qualified Code(s): I50.9 - Heart failure, unspecified Code(s): I50.9 - Heart failure, unspecified Status: Chronic Assessment and Plan: follows with Dr. Ritter despite valvular heart disease, deemed too high risk for surgical intervention (6) Hypertension: Code(s): I10 - Essential (primary) hypertension Status: Chronic Assessment and Plan: reasonable control at this time ARB on hold currently follow trend of hemodynamics (7) Anemia: Code(s): D64.9 - Anemia, unspecified Status: Chronic Assessment and Plan: due to CKD and acute illness empirically started Epogen while hospitalized -- likely d/c on discharge follow trend of H/H (8) Diabetes: Code(s): E11.9 - Type 2 diabetes mellitus without complications Status: Chronic Assessment and Plan: follow Accu-Cheks on sliding-scale insulin. Not opposed to discharge to SNF/rehab from renal perspective if otherwise medically stable. Will continue to follow. Subjective Date/time seen: 04/08/21 13:07 Respiratory status seems to be slowly improving/stabilizing at this time; renal function remains relatively stable with improvement in sodium level since starting diuretic therapy; no other acute complaints voiced; no issues/events overnight; no problems reported earlier today. Exam Narrative: General: WD/WN female in NAD Heart: normal S1 and S2; no rub Lungs: coarse breath sounds at the bases Abdomen: soft, nontender, nondistended, positive bowel sounds Extremities: no cyanosis or clubbing; no edema Skin: no rash Objective Data Vital Signs Vital Signs: Vital Signs Temp Pulse Resp BP Pulse Ox 04/08/21 12:00 61 04/08/21 08:54 93 04/08/21 08:53 59 L 16 04/08/21 08:30 95 04/08/21 08:01 68 04/08/21 08:00 58 L 92 04/08/21 05:06 36.8 C 60 16 113/79 100 04/08/21 04:04 56 L 04/08/21 03:12 68 15 04/08/21 03:02 65 16 04/08/21 00:05 54 L 04/07/21 21:26 70 16 04/07/21 21:18 72 15 04/07/21 21:15 98 04/07/21 20:33 60 16 98 04/07/21 20:16 36.6 C 60 18 121/79 100 04/07/21 20:04 56 L Intake/Output Intake/Output: Intake & Output 04/05/21 04/06/21 04/07/21 04/08/21 23:59 23:59 23:59 23:59 Intake Total 1065 675 435 200 Output Total 575 378 Balance 490 297 435 200 Meds/Resul
--- NOTE | 2021-04-08 13:07 | P.PNNP_ITS ---
Progress Note: A&P Assessment and Plan (1) GISELLE (acute kidney injury): Code(s): N17.9 - Acute kidney failure, unspecified Status: Acute Assessment and Plan: * resolved * elevated BUN/azotemia noted -- presumably due to catabolic state and steroid therapy * restarted on diuretic therapy today (2) Chronic kidney disease, stage IV (severe): Code(s): N18.4 - Chronic kidney disease, stage 4 (severe) Status: Chronic Assessment and Plan: * baseline creatine averages around 2.0 - 2.7mg/dl * thought to be secondary to her HTN, DM, cardiac/vascular disease and need for diuretics to maintain her volume status * noted fluctuations in kidney function due to fluid status and necessity of diuretics (3) Hyponatremia: Code(s): E87.1 - Hypo-osmolality and hyponatremia Status: Acute Assessment and Plan: * due to CHF versus recent lung issues(?) * improving with reinstitution of diuretic therapy * on fluid restriction * follow trend of sodium (4) Acute and chronic respiratory failure with hypoxia: Code(s): J96.21 - Acute and chronic respiratory failure with hypoxia Status: Acute Assessment and Plan: * recent CXR results noted - pneumonia versus pulmonary edema versus both * Echo shows severe aortic stenosis and severe pulmonary hypertension. * back on diuretic therapy at this time * Pulmonary following (5) CHF (congestive heart failure): Qualifiers: Heart failure chronicity: acute on chronic Heart failure type: unspecified Qualified Code(s): I50.9 - Heart failure, unspecified Code(s): I50.9 - Heart failure, unspecified Status: Chronic Assessment and Plan: * follows with Dr. Ritter * despite valvular heart disease, deemed too high risk for surgical intervention (6) Hypertension: Code(s): I10 - Essential (primary) hypertension Status: Chronic Assessment and Plan: * reasonable control at this time * ARB on hold currently * follow trend of hemodynamics (7) Anemia: Code(s): D64.9 - Anemia, unspecified Status: Chronic Assessment and Plan: * due to CKD and acute illness * empirically started Epogen while hospitalized -- likely d/c on discharge * follow trend of H/H (8) Diabetes: Code(s): E11.9 - Type 2 diabetes mellitus without complications Status: Chronic Assessment and Plan: * follow Accu-Cheks * on sliding-scale insulin. Not opposed to discharge to SNF/rehab from renal perspective if otherwise medic ally stable. Will continue to follow. Subjective Date/time seen: 04/08/21 13:07 Respiratory status seems to be slowly improving/stabilizing at this time; renal function remains relatively stable with improvement in sodium level since starting diuretic therapy; no other acute complaints voiced; no issues/events overnight; no problems reported earlier today. Exam Narrative: General: WD/WN female in NAD Heart: normal S1 and S2; no rub Lungs: coarse breath sounds at the bases Abdomen: soft, nontender, nondistended, positive bowel sounds Extremities: no cyanosis or clubbing; no edema Skin: no rash Objective Data Vital Signs Vital Signs: Vital Signs Temp Pulse Resp BP Pulse Ox 04/08/21 12:00 61 04/08/21 08:54 93 04/08/21 08:53 59 L 16 04/08/21 08:30 95
[2021-04-08] MEDS: DOXYCYCLINE HYCLATE 100 MG TABLET PO (13:10)
[2021-04-08 13:34] LABS: Albumin Level 3.4 g/dL (3.5-5.1); Anion Gap 8 mmol/L (8-16); Blood Urea Nitrogen 111 mg/dL (7-17); Calcium 9.3 mg/dL (8.4-10.2); Carbon Dioxide 26 mmol/L (22-30); Chloride 95 mmol/L (98-107); Estimated CRCL calculation 17 ml/min; Estimated Glomerular Filt Rate 20; Glucose 76 mg/dL (65-110); Phosphorus 4.8 mg/dL (2.5-4.5); Potassium 5.2 mmol/L (3.4-5.0); Sodium 129 mmol/L (137-145)
--- NOTE | 2021-04-08 14:19 | PM.IMPN ---
Progress Note: A&P Assessment and Plan (1) DKA (diabetic ketoacidosis): Code(s): E11.10 - Type 2 diabetes mellitus with ketoacidosis without coma Status: Acute Assessment and Plan: Resolved acute diabetic ketoacidosis. The patient originally presented with elevated blood sugars, dehydration hypovolemia and metabolic acidosis. She was given IV fluid bolus and started on IV insulin drip. The anion gap closed and patient has been transitioned to subcutaneous insulin.cautious IV fluids due to consider of congestive heart failure A1c came back at 6.6 20 units Lantus was given once with subsequent severe hypoglycemia . Lantus was lowered to 5 units subQ daily while Accu-Cheks were monitored closely. Her blood sugar control has improved. There were no hypoglycemia noted over the last 24 hours. Accu-Cheks have been in the 147-158 range. Resolved acute diabetic ketoacidosis. The patient marginally presented with elevated blood sugars, dehydration hypovolemia and metabolic acidosis. she was given IV fluid bolus and started on IV insulin drip anion gap closed and patient has been transitioned to subcutaneous insulin cautious IV fluids due to consider of congestive heart failure A1c came back at 6.6 20 units Lantus was given once with subsequent severe hypoglycemia . Lantus was lowered to 5 units subQ daily while Accu-Cheks were monitored closely. Her blood sugar control has improved. There were no hypoglycemia noted over the last 24 hours. Accu-Cheks have been in the 147-158 range. (2) Hypoglycemia: Code(s): E16.2 - Hypoglycemia, unspecified Status: Acute Assessment and Plan: Resolved. Patient eventually became hypoglycemic and insulin drip was stopped she was started on D5 fluids. When patient was on Lantus 20 units subQ daily, she experienced another episode of hypoglycemia and Lantus dose was reduced. continue to monitor sugars for now. Accu-Chek in the 147-150 range today. Resolved. Patient eventually became hypoglycemic and insulin drip was stopped she was started on D5 fluids. When patient was on Lantus 20 units subQ daily, she experienced another episode of hypoglycemia and Lantus dose was reduced. continue to monitor sugars for now. Accu-Chek in the 147-150 range today. (3) Hypotension: Qualifiers: Hypotension type: unspecified hypotension type Qualified Code(s): I95.9 - Hypotension, unspecified Code(s): I95.9 - Hypotension, unspecified Status: Acute Assessment and Plan: patient was hypotensive on presentation likely secondary to hypovolemia and dehydration blood pressure has improved after IV fluid bolus off of IV fluids at this time blood pressure improved patient was hypotensive on presentation likely secondary to hypovolemia and dehydration blood pressure has improved after IV fluid bolus off of IV fluids at this time blood pressure improved (4) Bradycardia: Code(s): R00.1 - Bradycardia, unspecified Status: Acute Assessment and Plan: improved improved (5) Acute and chronic respiratory failure with hypoxia: Code(s): J96.21 - Acute and chronic respiratory failure with hypoxia Status: Acute Assessment and Plan: patient is on oxygen at home and is currently on 1 L oxygen chest x-ray shows congestive heart failure hold further IV fluids Will need to re-initiate her regular diuretics Oxygen requirement has gone up most likely related to underlying CHF/COPD Continue breathing treatments as ordered Chest x-ray on 03/23/2021 remains unchanged will continue diuretics as ordered for now. Repeat chest x-ray in a.m.. PT OT in anticipation for discharge. patient is on oxygen at home and is currently on 1 L oxygen chest x-ray shows congestive heart failure hold further IV fluids Will need to re-initiate her regular diuretics Oxygen requirement has gone up most likely related to underlying CHF/COPD Continue br
[2021-04-08 16:57] LABS: Glucose Point of Care 64 mg/dl (65-105)
[2021-04-08 18:23] LABS: Glucose Point of Care 111 mg/dl (65-105)
[2021-04-08] MEDS: rOPINIRole HCL 0.25 MG TABLET PO (20:43)
[2021-04-08 21:06] LABS: Glucose Point of Care 155 mg/dl (65-105)
--- NOTE | 2021-04-08 21:55 | PCRCNOTE ---
Earlier in the evening, pt indicated that she would use her CPAP tonight but not until later. Now pt states that she wants to skip it tonight. Pt was advised to let her nurse know if she changes her mind. Nurse is aware and will be monitoring pt sat overnight.
[2021-04-09] VITALS (15 sets, daily range): BP systolic 126–146; BP diastolic 48–53; PULSE 55–92; RESP 16–18; TEMP 36–36.9; O2SAT 72–94
[2021-04-09] MEDS: DOXYCYCLINE HYCLATE 100 MG TABLET PO ×3 (00:07→23:25)
[2021-04-09] MEDS: ACETAMINOPHEN 325 MG TABLET 650 MG PO ×3 (05:28→18:03)
[2021-04-09 06:19] LABS: Albumin Level 2.9 g/dL (3.5-5.1); Anion Gap 7 mmol/L (8-16); Blood Urea Nitrogen 114 mg/dL (7-17); Calcium 8.6 mg/dL (8.4-10.2); Carbon Dioxide 27 mmol/L (22-30); Chloride 95 mmol/L (98-107); Estimated CRCL calculation 17 ml/min; Estimated Glomerular Filt Rate 20; Glucose 70 mg/dL (65-110); Phosphorus 5.2 mg/dL (2.5-4.5); Potassium 4.8 mmol/L (3.4-5.0); Sodium 129 mmol/L (137-145)
[2021-04-09 07:55] LABS: Glucose Point of Care 88 mg/dl (65-105)
[2021-04-09] MEDS: FUROSEMIDE 20 MG TABLET PO (08:08)
[2021-04-09] MEDS: THERAPEUTIC MULTIVITAMINS/MINERALS TAB (*BKC) 1 TABLET PO (08:08)
[2021-04-09] MEDS: MAGNESIUM OXIDE 200 MG TABLET PO ×2 (08:08→17:20)
[2021-04-09] MEDS: ENOXAPARIN 30 MG/0.3 ML SYRINGE SUB-Q (08:08)
[2021-04-09] MEDS: INSULIN GLARGINE (*BKC) 100 UNITS/ML 20 UNITS SUB-Q ×2 (08:08→17:20)
[2021-04-09] MEDS: amLODIPine BESYLATE 5 MG TABLET 10 MG PO (08:08)
[2021-04-09] MEDS: carvediloL 25 MG TABLET PO ×2 (08:09→20:39)
[2021-04-09] MEDS: predniSONE 20 MG TABLET 40 MG PO (08:09)
[2021-04-09] MEDS: ASCORBIC ACID 500 MG TABLET 1000 MG PO (08:09)
[2021-04-09] MEDS: FERROUS SULFATE 324 MG TABLET PO (08:09)
[2021-04-09] MEDS: ASPIRIN 81 MG ENTERIC TABLET PO (08:09)
[2021-04-09] MEDS: ATORVASTATIN 40 MG TABLET PO (08:09)
[2021-04-09] MEDS: FLUTICASONE PROPIONATE 0.05% NA SPR 16 GM BTL (*BKC) 2 SPRAY NASAL (08:10)
[2021-04-09] MEDS: ALBUTEROL SULFATE NEB 2.5 MG/0.5 ML INH INHALATION (10:21)
[2021-04-09] MEDS: IPRATROPIUM BR 0.02% INH SOLN 0.5 MG/2.5 ML VIAL INHALATION (10:21)
--- NOTE | 2021-04-09 11:29 | PM.DS ---
DS: Admitting Diagnosis Discharge Date 04/10/2021 Admitting Diagnosis (1) DKA (diabetic ketoacidosis): (2) Hypotension: (3) Bradycardia: (4) Lactic acidosis: (5) Hyperkalemia: (6) Chronic kidney disease, stage IV (severe): (7) CHF (congestive heart failure): (8) Metabolic encephalopathy: DS: Discharge Diagnosis Discharge Diagnosis (1) DKA (diabetic ketoacidosis): Code(s): E11.10 - Type 2 diabetes mellitus with ketoacidosis without coma Status: Acute Assessment and Plan: Resolved acute diabetic ketoacidosis. The patient originally presented with elevated blood sugars, dehydration hypovolemia and metabolic acidosis. She was given IV fluid bolus and started on IV insulin drip. The anion gap closed and patient has been transitioned to subcutaneous insulin.cautious IV fluids due to consider of congestive heart failure A1c came back at 6.6 20 units Lantus was given once with subsequent severe hypoglycemia . Lantus was lowered to 5 units subQ daily while Accu-Cheks were monitored closely. Her blood sugar control has improved. There were no hypoglycemia noted over the last 24 hours. Accu-Cheks have been in the 147-158 range. Resolved acute diabetic ketoacidosis. The patient marginally presented with elevated blood sugars, dehydration hypovolemia and metabolic acidosis. she was given IV fluid bolus and started on IV insulin drip anion gap closed and patient has been transitioned to subcutaneous insulin cautious IV fluids due to consider of congestive heart failure A1c came back at 6.6 20 units Lantus was given once with subsequent severe hypoglycemia . Lantus was lowered to 5 units subQ daily while Accu-Cheks were monitored closely. Her blood sugar control has improved. There were no hypoglycemia noted over the last 24 hours. Accu-Cheks have been in the 147-158 range. (2) Hypoglycemia: Code(s): E16.2 - Hypoglycemia, unspecified Status: Acute Assessment and Plan: Resolved. Patient eventually became hypoglycemic and insulin drip was stopped she was started on D5 fluids. When patient was on Lantus 20 units subQ daily, she experienced another episode of hypoglycemia and Lantus dose was reduced. continue to monitor sugars for now. Accu-Chek in the 147-150 range today. Resolved. Patient eventually became hypoglycemic and insulin drip was stopped she was started on D5 fluids. When patient was on Lantus 20 units subQ daily, she experienced another episode of hypoglycemia and Lantus dose was reduced. continue to monitor sugars for now. Accu-Chek in the 147-150 range today. (3) Hypotension: Qualifiers: Hypotension type: unspecified hypotension type Qualified Code(s): I95.9 - Hypotension, unspecified Code(s): I95.9 - Hypotension, unspecified Status: Acute Assessment and Plan: patient was hypotensive on presentation likely secondary to hypovolemia and dehydration blood pressure has improved after IV fluid bolus off of IV fluids at this time blood pressure improved patient was hypotensive on presentation likely secondary to hypovolemia and dehydration blood pressure has improved after IV fluid bolus off of IV fluids at this time blood pressure improved (4) Bradycardia: Code(s): R00.1 - Bradycardia, unspecified Status: Acute Assessment and Plan: improved improved (5) Acute and chronic respiratory failure with hypoxia: Code(s): J96.21 - Acute and chronic respiratory failure with hypoxia Status: Acute Assessment and Plan: patient is on oxygen at home and is currently on 1 L oxygen chest x-ray shows congestive heart failure hold further IV fluids Will need to re-initiate her regular diuretics Oxygen requirement has gone up most likely related to underlying CHF/COPD Continue breathing treatments as ordered Chest x-ray on 03/23/2021 remains unchanged will continue diuretics as ordered for now. Repeat chest x-ray in
[2021-04-09 11:44] LABS: Glucose Point of Care 60 mg/dl (65-105)
--- NOTE | 2021-04-09 12:02 | PM.PNNEP ---
Progress Note: A&P Assessment and Plan (1) GISELLE (acute kidney injury): Code(s): N17.9 - Acute kidney failure, unspecified Status: Acute Assessment and Plan: resolved elevated BUN/azotemia noted -- presumably due to catabolic state and steroid therapy restarted on diuretic therapy (2) Chronic kidney disease, stage IV (severe): Code(s): N18.4 - Chronic kidney disease, stage 4 (severe) Status: Chronic Assessment and Plan: baseline creatine averages around 2.0 - 2.7mg/dl thought to be secondary to her HTN, DM, cardiac/vascular disease and need for diuretics to maintain her volume status noted fluctuations in kidney function due to fluid status and necessity of diuretics (3) Hyponatremia: Code(s): E87.1 - Hypo-osmolality and hyponatremia Status: Acute Assessment and Plan: due to CHF versus recent lung issues(?) improving with reinstitution of diuretic therapy on fluid restriction follow trend of sodium (4) Acute and chronic respiratory failure with hypoxia: Code(s): J96.21 - Acute and chronic respiratory failure with hypoxia Status: Acute Assessment and Plan: recent CXR results noted - pneumonia versus pulmonary edema versus both Echo shows severe aortic stenosis and severe pulmonary hypertension. back on diuretic therapy at this time Pulmonary following (5) CHF (congestive heart failure): Qualifiers: Heart failure chronicity: acute on chronic Heart failure type: unspecified Qualified Code(s): I50.9 - Heart failure, unspecified Code(s): I50.9 - Heart failure, unspecified Status: Chronic Assessment and Plan: follows with Dr. Ritter despite valvular heart disease, deemed too high risk for surgical intervention (6) Hypertension: Code(s): I10 - Essential (primary) hypertension Status: Chronic Assessment and Plan: reasonable control at this time ARB on hold currently follow trend of hemodynamics (7) Anemia: Code(s): D64.9 - Anemia, unspecified Status: Chronic Assessment and Plan: due to CKD and acute illness empirically started Epogen while hospitalized -- likely d/c on discharge follow trend of H/H (8) Diabetes: Code(s): E11.9 - Type 2 diabetes mellitus without complications Status: Chronic Assessment and Plan: follow Accu-Cheks on sliding-scale insulin. Not plans for discharge tomorrow morning which is acceptable from renal perspective -- as respiratory status improves, would slowly reintroduce ARB therapy given her underlying cardiac issues. Will continue to follow. Subjective Date/time seen: 04/09/21 12:02 No new issues or problems to report at this time; continues to make slow and steady progress; breathing/respiratory status seems stable if not better; better oral intake noted as well; stable hemodynamics; no other acute issues/events overnight or earlier this morning; noted plans for tentative discharge tomorrow morning. Exam Narrative: General: WD/WN female in NAD Heart: normal S1 and S2; no rub Lungs: decreased breath sounds at the bases Abdomen: soft, nontender, nondistended, positive bowel sounds Extremities: no cyanosis or clubbing; no edema Skin: no nodules Objective Data Vital Signs Vital Signs: Vital Signs Temp Pulse Resp BP Pulse Ox 04/09/21 12:00 61 04/09/21 10:22 64 16 04/09/21 10:10 62 16 04/09/21 09:15 64 94 04/09/21 08:09 62 04/09/21 08:00 58 L 93 04/09/21 05:18 36.9 C 57 L 18 146/53 H 94 04/09/21 04:04 55 L 04/09/21 00:05 59 L 04/08/21 20:58 36.6 C 61 16 137/51 L 94 04/08/21 20:48 60 92 04/08/21 20:43 16 93 04/08/21 20:42 60 04/08/21 20:04 63 04/08/21 16:00 61 Intake/Output Intake/Output: Intake & Output 04/06/21 04/07/21 04/08/21 04/09/21 23:59 23:59 23:59 23:59 Int
--- NOTE | 2021-04-09 12:02 | P.PNNP_ITS ---
Progress Note: A&P Assessment and Plan (1) GISELLE (acute kidney injury): Code(s): N17.9 - Acute kidney failure, unspecified Status: Acute Assessment and Plan: * resolved * elevated BUN/azotemia noted -- presumably due to catabolic state and steroid therapy * restarted on diuretic therapy (2) Chronic kidney disease, stage IV (severe): Code(s): N18.4 - Chronic kidney disease, stage 4 (severe) Status: Chronic Assessment and Plan: * baseline creatine averages around 2.0 - 2.7mg/dl * thought to be secondary to her HTN, DM, cardiac/vascular disease and need for diuretics to maintain her volume status * noted fluctuations in kidney function due to fluid status and necessity of diuretics (3) Hyponatremia: Code(s): E87.1 - Hypo-osmolality and hyponatremia Status: Acute Assessment and Plan: * due to CHF versus recent lung issues(?) * improving with reinstitution of diuretic therapy * on fluid restriction * follow trend of sodium (4) Acute and chronic respiratory failure with hypoxia: Code(s): J96.21 - Acute and chronic respiratory failure with hypoxia Status: Acute Assessment and Plan: * recent CXR results noted - pneumonia versus pulmonary edema versus both * Echo shows severe aortic stenosis and severe pulmonary hypertension. * back on diuretic therapy at this time * Pulmonary following (5) CHF (congestive heart failure): Qualifiers: Heart failure chronicity: acute on chronic Heart failure type: unspecified Qualified Code(s): I50.9 - Heart failure, unspecified Code(s): I50.9 - Heart failure, unspecified Status: Chronic Assessment and Plan: * follows with Dr. Ritter * despite valvular heart disease, deemed too high risk for surgical intervention (6) Hypertension: Code(s): I10 - Essential (primary) hypertension Status: Chronic Assessment and Plan: * reasonable control at this time * ARB on hold currently * follow trend of hemodynamics (7) Anemia: Code(s): D64.9 - Anemia, unspecified Status: Chronic Assessment and Plan: * due to CKD and acute illness * empirically started Epogen while hospitalized -- likely d/c on discharge * follow trend of H/H (8) Diabetes: Code(s): E11.9 - Type 2 diabetes mellitus without complications Status: Chronic Assessment and Plan: * follow Accu-Cheks * on sliding-scale insulin. Not plans for discharge tomorrow morning which is acceptable from renal perspective -- as respiratory status improves, would slowly reintroduce ARB therapy given her underlying cardiac issues. Will continue to follow. Subjective Date/time seen: 04/09/21 12:02 No new issues or problems to report at this time; continues to make slow and steady progress; breathing/respiratory status seems stable if not better; better oral intake noted as well; stable hemodynamics; no other acute issues/events overnight or earlier this morning; noted plans for tentative discharge tomorrow morning. Exam Narrative: General: WD/WN female in NAD Heart: normal S1 and S2; no rub Lungs: decreased breath sounds at the bases Abdomen: soft, nontender, nondistended, positive bowel sounds Extremities: no cyanosis or clubbing; no edema Skin: no nodules Objective Data Vital Signs Vital Signs: Vital Signs Temp Pulse Resp BP Pulse Ox
[2021-04-09 12:58] LABS: Glucose Point of Care 81 mg/dl (65-105)
[2021-04-09] MEDS: EPOETIN ALFA-EPBX 10,000 UNITS/ML VIAL 10000 UNITS SUB-Q (13:19)
[2021-04-09 16:38] LABS: Glucose Point of Care 112 mg/dl (65-105)
[2021-04-09 19:47] LABS: Glucose Point of Care 180 mg/dl (65-105)
[2021-04-09] MEDS: rOPINIRole HCL 0.25 MG TABLET PO (20:39)
--- NOTE | 2021-04-09 22:22 | PCRCNOTE ---
Pt again refused the use of her home CPAP overnight. She states she doesn't like and would rather not wear it. Pt was resting comfortably on RA with a O2 saturation of 95%. Pt was advised to let her nurse know if she changes her mind about the CPAP. Pt is on continuous O2 and HR monitoring.
[2021-04-10] VITALS (7 sets, daily range): BP systolic 157; BP diastolic 62; PULSE 55–72; RESP 16–18; TEMP 36.6; O2SAT 100
[2021-04-10] MEDS: ALBUTEROL SULFATE NEB 2.5 MG/0.5 ML INH INHALATION (04:26)
[2021-04-10] MEDS: IPRATROPIUM BR 0.02% INH SOLN 0.5 MG/2.5 ML VIAL INHALATION (04:26)
[2021-04-10 07:35] LABS: Glucose Point of Care 49 mg/dl (65-105)
[2021-04-10] MEDS: GLUCOSE ORAL GEL 15 GM OF GLUCSE IN 37.5 GM TUBE PO ×2 (07:35→07:58)
[2021-04-10 07:58] LABS: Glucose Point of Care 52 mg/dl (65-105)
[2021-04-10] MEDS: ENOXAPARIN 30 MG/0.3 ML SYRINGE SUB-Q (08:19)
[2021-04-10] MEDS: amLODIPine BESYLATE 5 MG TABLET 10 MG PO (08:20)
[2021-04-10] MEDS: FLUTICASONE PROPIONATE 0.05% NA SPR 16 GM BTL (*BKC) 2 SPRAY NASAL (08:20)
[2021-04-10] MEDS: MAGNESIUM OXIDE 200 MG TABLET PO (08:20)
[2021-04-10] MEDS: ATORVASTATIN 40 MG TABLET PO (08:21)
[2021-04-10] MEDS: FUROSEMIDE 20 MG TABLET PO (08:21)
[2021-04-10] MEDS: calcitrioL 0.25 MCG CAPSULE PO (08:21)
[2021-04-10] MEDS: THERAPEUTIC MULTIVITAMINS/MINERALS TAB (*BKC) 1 TABLET PO (08:21)
[2021-04-10] MEDS: carvediloL 25 MG TABLET PO (08:21)
[2021-04-10] MEDS: FERROUS SULFATE 324 MG TABLET PO (08:21)
[2021-04-10] MEDS: predniSONE 20 MG TABLET 40 MG PO (08:21)
[2021-04-10] MEDS: ASCORBIC ACID 500 MG TABLET 1000 MG PO (08:21)
[2021-04-10] MEDS: ASPIRIN 81 MG ENTERIC TABLET PO (08:21)
[2021-04-10 08:22] LABS: Glucose Point of Care 74 mg/dl (65-105)
[2021-04-10] MEDS: ACETAMINOPHEN 325 MG TABLET 650 MG PO (08:27)
[2021-04-10 09:00] LABS: Glucose Point of Care 113 mg/dl (65-105)
[2021-04-10 09:16] LABS: Basophils Percent Auto 0.1 % (0.2-1.2); Eosinophils Percent Auto 0.2 % (0-4.4); Hematocrit 39.9 % (37.0-47.0); Hemoglobin 13.1 g/dL (12.0-15.0); Immature Granulocyte Absolute 0.14 K/mm3 (0.00-0.031); Immature Granulocyte Percent A 1.1 % (0-0.5); Lymphocytes Absolute Auto 1.63 K/mm3 (0.9-3.2); Lymphocytes Percent Auto 12.9 % (18.3-44.2); Mean Corpuscular HGB Conc 32.8 g/dl (32-36); Mean Corpuscular Hemoglobin 33.4 pg (26-34); Mean Corpuscular Volume 101.8 fl (80-100); Mean Platelet Volume 10.6 fl (7.4-10.4); Monocytes Absolute Auto 1.4 K/mm3 (0.1-0.6); Monocytes Percent Auto 10.7 % (2.6-8.5); Neutrophils Absolute Auto 9.5 K/mm3 (1.3-6.7); Nucleated Red Blood Cells Perc 0.2 % (0.0-0.2); Platelet Count Result 410 k/mm3 (150-375); Red Blood Count 3.92 M/mm3 (4.2-5.4); Red Cell Distribution Width 18.6 % (11.5-14.5); White Blood Count 12.6 K/mm3 (4.5-10.0)
[2021-04-10 11:10] LABS: Alanine Aminotransferase 17 U/L (4-35); Alkaline Phosphatase 67 U/L (38-126); Anion Gap 6 mmol/L (8-16); Aspartate Amino Transferase 29 U/L (14-36); Bilirubin,Total 0.5 mg/dL (0.2-1.3); Blood Urea Nitrogen 113 mg/dL (7-17); Calcium 8.7 mg/dL (8.4-10.2); Carbon Dioxide 25 mmol/L (22-30); Chloride 96 mmol/L (98-107); Estimated CRCL calculation 17 ml/min; Estimated Glomerular Filt Rate 20; Glucose 142 mg/dL (65-110); Potassium 5.3 mmol/L (3.4-5.0); Sodium 127 mmol/L (137-145)
--- NOTE | 2021-04-10 11:28 | P.PNNP_ITS ---
Progress Note: A&P Assessment and Plan (1) GISELLE (acute kidney injury): Code(s): N17.9 - Acute kidney failure, unspecified Status: Acute Assessment and Plan: * resolved * elevated BUN/azotemia noted -- presumably due to catabolic state and steroid therapy * restarted on diuretic therapy (2) Chronic kidney disease, stage IV (severe): Code(s): N18.4 - Chronic kidney disease, stage 4 (severe) Status: Chronic Assessment and Plan: * baseline creatine averages around 2.0 - 2.7mg/dl * thought to be secondary to her HTN, DM, cardiac/vascular disease and need for diuretics to maintain her volume status * noted fluctuations in kidney function due to fluid status and necessity of diuretics (3) Hyponatremia: Code(s): E87.1 - Hypo-osmolality and hyponatremia Status: Acute Assessment and Plan: * due to CHF versus recent lung issues(?) * improving with reinstitution of diuretic therapy * on fluid restriction * follow trend of sodium (4) Acute and chronic respiratory failure with hypoxia: Code(s): J96.21 - Acute and chronic respiratory failure with hypoxia Status: Acute Assessment and Plan: * recent CXR results noted - pneumonia versus pulmonary edema versus both * Echo shows severe aortic stenosis and severe pulmonary hypertension. * back on diuretic therapy at this time * Pulmonary following (5) CHF (congestive heart failure): Qualifiers: Heart failure chronicity: acute on chronic Heart failure type: unspecified Qualified Code(s): I50.9 - Heart failure, unspecified Code(s): I50.9 - Heart failure, unspecified Status: Chronic Assessment and Plan: * follows with Dr. Ritter * despite valvular heart disease, deemed too high risk for surgical intervention (6) Hypertension: Code(s): I10 - Essential (primary) hypertension Status: Chronic Assessment and Plan: * reasonable control at this time * ARB on hold currently * follow trend of hemodynamics (7) Anemia: Code(s): D64.9 - Anemia, unspecified Status: Chronic Assessment and Plan: * due to CKD and acute illness * empirically started Epogen while hospitalized -- likely d/c on discharge * follow trend of H/H (8) Diabetes: Code(s): E11.9 - Type 2 diabetes mellitus without complications Status: Chronic Assessment and Plan: * follow Accu-Cheks * on sliding-scale insulin. Will continue to follow. Subjective Date/time seen: 04/10/21 11:28 Continues to do reasonably well; no issues or problems overnight or earlier this AM; breathing/respiratory status stable if not continues to improve; noted plans for discharge today. Exam 2 Narrative: General: WD/WN female in NAD Heart: normal S1 and S2; no rub Lungs: decreased breath sounds at the bases Abdomen: soft, nontender, nondistended, positive bowel sounds Extremities: no cyanosis or clubbing; no edema Skin: warm and dry Objective Data Vital Signs Vital Signs: Vital Signs Temp Pulse Resp BP Pulse Ox 04/10/21 08:21 72 04/10/21 06:21 36.6 C 67 18 157/62 H 100 04/10/21 04:37 57 L 16 04/10/21 04:27 55 L 16 04/10/21 04:00 58 L 04/10/21 00:00 59 L 04/09/21 22:24 36.0 C L 92 18 137/53 L 72 L 04/09/21 20:39 59 L
--- NOTE | 2021-04-10 11:28 | PM.PNNEP ---
Progress Note: A&P Assessment and Plan (1) GISELLE (acute kidney injury): Code(s): N17.9 - Acute kidney failure, unspecified Status: Acute Assessment and Plan: resolved elevated BUN/azotemia noted -- presumably due to catabolic state and steroid therapy restarted on diuretic therapy (2) Chronic kidney disease, stage IV (severe): Code(s): N18.4 - Chronic kidney disease, stage 4 (severe) Status: Chronic Assessment and Plan: baseline creatine averages around 2.0 - 2.7mg/dl thought to be secondary to her HTN, DM, cardiac/vascular disease and need for diuretics to maintain her volume status noted fluctuations in kidney function due to fluid status and necessity of diuretics (3) Hyponatremia: Code(s): E87.1 - Hypo-osmolality and hyponatremia Status: Acute Assessment and Plan: due to CHF versus recent lung issues(?) improving with reinstitution of diuretic therapy on fluid restriction follow trend of sodium (4) Acute and chronic respiratory failure with hypoxia: Code(s): J96.21 - Acute and chronic respiratory failure with hypoxia Status: Acute Assessment and Plan: recent CXR results noted - pneumonia versus pulmonary edema versus both Echo shows severe aortic stenosis and severe pulmonary hypertension. back on diuretic therapy at this time Pulmonary following (5) CHF (congestive heart failure): Qualifiers: Heart failure chronicity: acute on chronic Heart failure type: unspecified Qualified Code(s): I50.9 - Heart failure, unspecified Code(s): I50.9 - Heart failure, unspecified Status: Chronic Assessment and Plan: follows with Dr. Ritter despite valvular heart disease, deemed too high risk for surgical intervention (6) Hypertension: Code(s): I10 - Essential (primary) hypertension Status: Chronic Assessment and Plan: reasonable control at this time ARB on hold currently follow trend of hemodynamics (7) Anemia: Code(s): D64.9 - Anemia, unspecified Status: Chronic Assessment and Plan: due to CKD and acute illness empirically started Epogen while hospitalized -- likely d/c on discharge follow trend of H/H (8) Diabetes: Code(s): E11.9 - Type 2 diabetes mellitus without complications Status: Chronic Assessment and Plan: follow Accu-Cheks on sliding-scale insulin. Will continue to follow. Subjective Date/time seen: 04/10/21 11:28 Continues to do reasonably well; no issues or problems overnight or earlier this AM; breathing/respiratory status stable if not continues to improve; noted plans for discharge today. Exam Narrative: General: WD/WN female in NAD Heart: normal S1 and S2; no rub Lungs: decreased breath sounds at the bases Abdomen: soft, nontender, nondistended, positive bowel sounds Extremities: no cyanosis or clubbing; no edema Skin: warm and dry Objective Data Vital Signs Vital Signs: Vital Signs Temp Pulse Resp BP Pulse Ox 04/10/21 08:21 72 04/10/21 06:21 36.6 C 67 18 157/62 H 100 04/10/21 04:37 57 L 16 04/10/21 04:27 55 L 16 04/10/21 04:00 58 L 04/10/21 00:00 59 L 04/09/21 22:24 36.0 C L 92 18 137/53 L 72 L 04/09/21 20:39 59 L 04/09/21 20:21 60 92 04/09/21 20:00 59 L 16 92 04/09/21 16:00 58 L 04/09/21 14:14 36.1 C L 59 L 16 126/48 L 93 04/09/21 12:00 61 Intake/Output Intake/Output: Intake & Output 04/07/21 04/08/21 04/09/21 04/10/21 23:59 23:59 23:59 23:59 Intake Total 435 400 510 390 Output Total 375 Balance 435 400 135 390 Meds/Results Medications: Active Medications Generic Name Dose Route Start Last Admin Trade Name Jose Carlosq PRN Reason Stop Dose Admin Acetaminophen 650 mg 03/21/21 22:15 04/10/21 08:27 Acetaminophen 325 Mg Tablet PO 650 mg Q6H PRN Administration Mild Elizabeth
[2021-04-10 11:32] LABS: Glucose Point of Care 213 mg/dl (65-105)
[2021-04-10 12:01] LABS: Prealbumin 27.8 mg/dL (17.6-36.0)
[2021-04-10] MEDS: INSULIN ASPART (*BKC) 100 UNITS/ML SUB-Q (12:43)
[2021-04-10] MEDS: DOXYCYCLINE HYCLATE 100 MG TABLET PO (12:43)
[2021-04-10 12:50] LABS: EDCOVIDSCREEN Negative (Negative)
== END 2021-04-10 13:15 | DRG 637 ==
LOC: ANHED 10:56 → ANHICU 12:17 → ANH3MED 03-21 15:21
PROVIDERS: Family Medicine; Internal Medicine; Internal Medicine Nephrology; Internal Medicine Pulmonary Disease; Physician Assistant; Admitting Provider Internal Medicine; Emergency Provider Emergency Medicine; PCP Family Medicine; Visit Provider Hospitalist
DX: E11.10 Type 2 diabetes mellitus with ketoacidosis without coma (principal); G93.41 Metabolic encephalopathy; J96.21 Acute and chronic respiratory failure with hypoxia; I50.33 Acute on chronic diastolic (congestive) heart failure; N18.4 Chronic kidney disease, stage 4 (severe); I13.0 Hypertensive heart and chronic kidney disease with heart failure and stage 1 through stage 4 chronic kidney disease, or unspecified chronic kidney disease; I95.9 Hypotension, unspecified; N17.9 Acute kidney failure, unspecified; Z20.822 Contact with and (suspected) exposure to COVID-19; R00.1 Bradycardia, unspecified; E87.5 Hyperkalemia; E11.22 Type 2 diabetes mellitus with diabetic chronic kidney disease; Z29.9 Encounter for prophylactic measures, unspecified; I25.10 Atherosclerotic heart disease of native coronary artery without angina pectoris; I35.0 Nonrheumatic aortic (valve) stenosis; I65.23 Occlusion and stenosis of bilateral carotid arteries; E78.5 Hyperlipidemia, unspecified; E11.649 Type 2 diabetes mellitus with hypoglycemia without coma; E86.0 Dehydration; E86.1 Hypovolemia; G47.33 Obstructive sleep apnea (adult) (pediatric); M81.0 Age-related osteoporosis without current pathological fracture; Z78.0 Asymptomatic menopausal state; E11.319 Type 2 diabetes mellitus with unspecified diabetic retinopathy without macular edema; Z99.81 Dependence on supplemental oxygen; J84.89 Other specified interstitial pulmonary diseases; Z82.49 Family history of ischemic heart disease and other diseases of the circulatory system; Z79.82 Long term (current) use of aspirin; Z79.4 Long term (current) use of insulin; Z79.899 Other long term (current) drug therapy; Z88.6 Allergy status to analgesic agent
CPT/HCPCS: 36415; 36600; 51702; 71045; 71046; 71250; 80048; 80053; 80069; 80202; 80307; 81001; 82375; 82607; 82728; 82746; 82805; 82948; 83036; 83050; 83540; 83550; 83605; 83615; 83735; 83880; 84100; 84134; 84145; 84443; 84466; 84702; 85025; 85027; 85046; 85380; 85610; 85730; 86140; 86331; 86606; 86609; 87040; 87086; 87426; 93005; 93970; 94002; 94003; 94640; 94762; 96360; 97110; 97161; 97165; 97166; 97530; 97535; 99285; A9270; C8929; C9803; J0131; J0692; J1650; J1720; J1815; J1940; J2930; J3370; J7030; J7042; J7512; Q5105; Q9957; U0003; U0005

== ENCOUNTER 2021-06-20 01:16 | Inpatient (IN) | payer OTHER, SELFPAY ==
[2021-06-20] VITALS (22 sets, daily range): BP systolic 117–151; BP diastolic 47–88; PULSE 57–75; RESP 13–21; TEMP 36.2–37; O2SAT 95–100; BMI 29.7
--- NOTE | ~2021-06-20 | XR_ITS ---
EXAMINATION: XR chest 1V portable INDICATION: Shortness of breath TECHNIQUE: Portable AP chest at 0530 hours COMPARISON: 06/22/2021 FINDINGS: Diffuse interstitial and airspace opacities persist with interval improvement. There is no pleural effusion or pneumothorax. The cardiomediastinal silhouette is stable. IMPRESSION: 1. Diffuse lung disease with interval improvement, consistent with pneumonia and/or pulmonary edema. Reviewed, dictated and finalized at location A. IMPRESSION: 1. Diffuse lung disease with interval improvement, consistent with pneumonia an d/or pulmonary edema.
--- NOTE | ~2021-06-20 | CT_ITS ---
EXAMINATION: CT chest abdomen pelvis wo con DATE: 06/20/2021 21:39 INDICATION: Pneumonia and acute kidney injury TECHNIQUE: Transaxial computed tomographic images of the chest, abdomen, and pelvis were obtained wit hout contrast. The dose-length product (DLP) was 982.24 mGy-cm. Automated exposure control and iterat namrata reconstruction technique were employed. COMPARISON: 03/25/2021 FINDINGS: CHEST CT: There are widespread groundglass and airspace opacities throughout the lungs. There are small pleural effusions. Cardiomegaly is noted. There is mediastinal and bilateral hilar lymphadenopathy. No pneum othorax is identified. There is calcified coronary artery atherosclerosis. There is mild thoracic spo ndylosis. ABDOMEN/PELVIS CT: There is diffuse anasarca. Within the limitations of noncontrast examination, the liver, spleen, panc reas, gallbladder, and adrenal glands are normal. The kidneys are unremarkable. There is a small volu me of pelvic ascites. A moderate volume of colonic stool is present. No pathologically enlarged abdom inal or pelvic lymph nodes are identified. There is no free intraperitoneal gas or evidence of bowel obstruction. There is calcified atherosclerosis of the aorta and many of the other arteries. There is severe lumbar spondylosis. IMPRESSION: 1. Diffuse lung disease, consistent with pneumonia versus pulmonary edema. 2. Mediastinal and hilar lymphadenopathy, likely reactive. 3. Cardiomegaly. 4. Small volume of pelvic ascites. 5. Small pleural effusions. Reviewed, dictated and finalized at location A.
--- NOTE | ~2021-06-20 | XR_ITS ---
EXAMINATION: XR chest 1V portable INDICATION: Cough TECHNIQUE: Portable AP chest at 0301 hours COMPARISON: 04/10/2021 FINDINGS: There are airspace opacities of the right upper lung zone in the left mid and lower lung zo home. There is no pleural effusion or pneumothorax. Cardiomegaly is noted. IMPRESSION: 1. Airspace opacities of the right upper lung zone and left mid and lower lung zones, consistent with pneumonia and/or pulmonary edema. 2. Cardiomegaly. Reviewed, dictated and finalized at location A.
--- NOTE | ~2021-06-20 | US_ITS ---
US venous doppler [facility] DATE: 06/28/2021 13:14 INDICATION: Bilateral lower leg edema TECHNIQUE: Real-time and color flow imaging and Doppler analysis of the veins of the lower extremitie s COMPARISON: March 26, 2021 bilateral lower extremity venous duplex examination FINDINGS: The greater saphenous veins are patent. There is spontaneous and phasic flow and normal aug mentation and color flow signal and normal compression of the deep veins of both lower extremities IMPRESSION: No evidence of deep venous thrombosis of the lower extremities Reviewed, dictated and finalized at Location A. Reviewed, dictated and finalized at location A.
--- NOTE | ~2021-06-20 | XR_ITS ---
EXAMINATION: XR chest 1V portable INDICATION: Shortness of breath TECHNIQUE: Portable AP chest at 1047 hours COMPARISON: 06/20/2021 FINDINGS: There are diffuse opacities throughout all lung zones with interval worsening. Small pleura l effusions are present. The cardiomediastinal silhouette is stable. No pneumothorax is identified. IMPRESSION: 1. Diffuse lung disease with interval worsening, consistent with pneumonia and/or pulmonary edema. Reviewed, dictated and finalized at location A. IMPRESSION: 1. Diffuse lung disease with interval worsening, consistent with pneumonia and/ or pulmonary edema.
[2021-06-20 01:28] LABS: Glucose Point of Care 414 mg/dl (65-105)
[2021-06-20 01:33] LABS: Basophils Absolute Auto 0.1 K/mm3 (0.0-0.1); Basophils Percent Auto 1.8 % (0.2-1.2); Eosinophils Absolute Auto 0.4 K/mm3 (0-0.3); Eosinophils Percent Auto 6.8 % (0-4.4); Hematocrit 24.6 % (37.0-47.0); Hemoglobin 7.6 g/dL (12.0-15.0); Immature Granulocyte Absolute 0.02 K/mm3 (0.00-0.031); Immature Granulocyte Percent A 0.3 % (0-0.5); Lymphocytes Absolute Auto 1.01 K/mm3 (0.9-3.2); Lymphocytes Percent Auto 16.8 % (18.3-44.2); Mean Corpuscular HGB Conc 30.9 g/dl (32-36); Mean Corpuscular Hemoglobin 31.3 pg (26-34); Mean Corpuscular Volume 101.2 fl (80-100); Mean Platelet Volume 11.3 fl (7.4-10.4); Monocytes Absolute Auto 0.7 K/mm3 (0.1-0.6); Neutrophils Absolute Auto 3.8 K/mm3 (1.3-6.7); Neutrophils Percent Auto 63.3 % (45.5-73.1); Platelet Count Result 196 k/mm3 (150-375); Red Blood Count 2.43 M/mm3 (4.2-5.4); Red Cell Distribution Width 15.4 % (11.5-14.5)
[2021-06-20 01:55] LABS: Alveolar/Arterial O2 Gradient 55.9 mmHg; Base Excess ABG -1.9 mEq/l (+/-2.0); Carboxyhemoglobin 0.3 % THb (0-2.0); Fractional Inspired Oxygen 34 %; HCO3 ABG 22.6 mEq/l (22.0-26.0); Methemoglobin ABG 0.6 %THb (0-1.5); Oxygen Content ABG 11.3 %vol (16.0-22.0); Oxygen Saturation ABG 98.9 % (95.0-100.0); Oxyhemoglobin 96.8 % THb (90.0-100.0); PCO2 ABG 37.2 mmHg (35.0-45.0); PO2 ABG 143.2 mmHg (80.0-100.0); PO2 FiO2 Ratio Arterial Blood 4.21 %; Reduced Hemoglobin 2.3 %THb (0-5.0); Total Hemoglobin 8.1 g/dL (12.0-18.0); pH ABG 7.402 (7.350-7.450)
[2021-06-20 01:56] LABS: Device NASAL CANNULA; Liters per Minute 3.5 LPM; Modified Allen's Test Pass; Site Drawn LEFT RADIAL
--- NOTE | 2021-06-20 02:04 | ED.GENADULT ---
HPI - General Adult General Chief complaint: Recheck/Abnormal Lab/Rx Stated complaint: HYPERGLYCEMIA Time Seen by Provider: 06/20/21 01:25 History of Present Illness HPI narrative: Patient 70-year-old female who presents the emergency department with chief complaint of hyperglycemia. Patient reports she has history of diabetes reports that she is actually been feeling quite well and today they checked her blood sugars and found that it was over 400. The patient currently has no complaints other than feeling a little dry reports has not been really eating and drinking much lately. The patient denies chest pain denies shortness of breath. Related Data Home Medications Medication Instructions Recorded Confirmed atorvastatin 40 mg PO QPM 12/29/18 03/20/21 insulin aspart U-100 [Novolog 1 sliding scale dose SUBCUT 04/18/19 03/20/21 U-100 Insulin aspart] USEASDIRECTD olmesartan 40 mg PO DAILY 01/11/20 03/20/21 carvedilol 25 mg PO BID 01/27/21 03/20/21 calcitriol 0.25 mcg PO 3XW 03/16/21 03/20/21 isosorbide mononitrate 30 mg PO DAILY 03/16/21 03/20/21 Ca-D3-mag ya-naks-ryb-brown-bor 1 tablet PO DAILY 03/17/21 03/20/21 [Calcium 600-D3 Plus (mag-zinc)] amlodipine 10 mg PO DAILY 03/17/21 03/20/21 aspirin 81 mg PO DAILY 03/17/21 03/20/21 ferrous sulfate 325 mg PO DAILY 03/17/21 03/20/21 fluticasone propionate 2 spray INTRANASAL DAILY 03/17/21 03/20/21 Systane (PF) 1 drp EACH EYE 4-6XD PRN 03/20/21 03/20/21 ascorbic acid (vitamin C) 1 g PO DAILY 03/20/21 03/20/21 furosemide 40 mg PO BID 03/20/21 03/20/21 insulin glargine See Rx Instructions .ROUTE .COMPLEX 03/20/21 03/20/21 magnesium oxide 200 mg PO BID 03/20/21 03/20/21 dd-wg-gpsv-FA-Ca carb-vit K 1 tablet PO DAILY 03/20/21 03/20/21 ropinirole 0.25 mg PO HS 03/20/21 03/20/21 tizanidine 2 mg PO Q6H PRN 03/20/21 03/20/21 Allergies Allergy/AdvReac Type Severity Reaction Status Date / Time tramadol AdvReac Severe NAUSEA Verified 06/20/21 01:22 codeine AdvReac Intermediate MAKES HER Verified 06/20/21 01:22 FEEL BAD hydrocodone [From [place]] AdvReac Vomiting Verified 06/20/21 01:22 Review of Systems Review of Systems: A 10 system review of systems was completed on the patient and is negative except for what is stated in the HPI. Nursing and ancillary documentation was reviewed. [facility] Past Medical History Medical History Aortic valve stenosis moderate to severe noted on cardiac catheterization December 2019 Carotid stenosis (12/2018) bilateral carotid stenosis 50-69% Chronic anemia anemia of chronic disease Chronic kidney disease, stage IV (severe) Colon polyps Colonoscopy in August 2017 showing internal hemorrhoids. Diastolic congestive heart failure due to valvular disease grade 2 diastolic dysfunction, normal EF of 50%, severe left atrial enlargement, mild to moderate mitral valve regurgitation, jkjq-pw-kdegyhlo tricuspid valve regurgitation Hand fracture History of angiography Right leg Without intervention Hyperlipidemia Hypertension Lymphedema bilateral lower extremities left greater than right Mitral valve prolapse Obstructive sleep apnea on CPAP Osteoporosis Post-menopausal Retinopathy Severe pulmonary hypertension noted on echocardiogram 11/2019 with RVSP of 75 Type 2 diabetes mellitus with insulin therapy Surgical History Surgical History H/O cardiac catheterization (12/2019) mild coronary artery disease, moderate to severe aortic valve stenosis History of bilateral tubal ligation S/P cataract surgery bilateral 10/2019 Status post laser cataract surgery of both eyes Family History Family History Mother Hypertension DVT (deep venous thrombosis) Vertigo Father Hypertension Cerebrovascular accident Sibling Graves disease Vertigo Sibling Family history of t
[2021-06-20 02:07] LABS: Beta-Hydroxybutyrate/Acetoacetate 1.87 mmol/L (0.02-0.27)
[2021-06-20] MEDS: SODIUM CHLORIDE 0.9% IV 1,000 ML 500 ML IV CONT (02:14)
[2021-06-20 02:41] LABS: Alanine Aminotransferase 9 U/L (4-35); Albumin Level 2.8 g/dL (3.5-5.1); Alkaline Phosphatase 47 U/L (38-126); Anion Gap 5 mmol/L (8-16); Aspartate Amino Transferase 16 U/L (14-36); Bilirubin,Total 0.3 mg/dL (0.2-1.3); Blood Urea Nitrogen 51 mg/dL (7-17); Calcium 8.1 mg/dL (8.4-10.2); Carbon Dioxide 25 mmol/L (22-30); Chloride 101 mmol/L (98-107); Estimated Glomerular Filt Rate 13; Glucose 396 mg/dL (65-110); Magnesium 1.8 mg/dL (1.6-2.3); Potassium 4.6 mmol/L (3.4-5.0); Sodium 131 mmol/L (137-145)
--- NOTE | 2021-06-20 02:49 | ECG_ITS ---
Measurements Intervals [place] Rate: 69 P: 37 HI: 200 QRS: 12 QRSD: 145 T: 45 QT: 414 QTc: 444 Interpretive Statements SINUS RHYTHM RIGHT BUNDLE BRANCH BLOCK BASELINE ARTIFACT- I, II, AVR, V1, V5 ABNORMAL ECG Electronically Signed On 06-20-2021 6:27:10 CDT by Levon Azevedo D.O.
[2021-06-20 03:48] LABS: Glucose Point of Care 367 mg/dl (65-105)
[2021-06-20 03:51] LABS: Appearance Urine Clear (Clear); Bilirubin Urine Negative (Negative); Blood Urine Negative (Negative); Color Urine Yellow (Yellow); Glucose Urine UA 3+ mg/dL (Negative); Ketones Urine 1+ mg/dL (Negative); Leukocyte Esterase Ur Negative LEU/UL (Negative); Nitrate Urine Negative (Negative); Protein Urine 1+ mg/dL (Negative); Urobilinogen Urine 0.2 mg/dL (<2.0)
[2021-06-20 03:55] LABS: Add Urine Microscopic? YES; Bacteria Urine Trace /hpf; Mucus Urine Rare /lpf; RBC Urine 0-2 /hpf (0-2); WBC Urine 0-3 /hpf
[2021-06-20] MEDS: INSULIN HUMAN REGULAR (*BKC) 100 UNITS/ML 10 UNITS IV PUSH (04:27)
[2021-06-20 04:32] LABS: Glucose Point of Care 320 mg/dl (65-105)
--- NOTE | 2021-06-20 05:09 | ADMGEN ---
This patient, Mine Dwyer, was admitted to 2 Medical Room 258-01 @ [facility]. Patient/family oriented to hospital policies and general routines including ID bracelet, bed and alarms, visiting hours, pain management, procedures, bathroom and other care routines, personal items, smoking policy, room service/diet, and visiting hours. Information on how to activate the Rapid Response Team has been discussed. Patient/Family are encouraged to report perceived risks to care and to ask questions if they do not understand what they are told or what they should do.
[2021-06-20] MEDS: SODIUM CHLORIDE 0.9% IV 1,000 ML 65 ML IV CONT (05:51)
[2021-06-20 06:08] LABS: Hematocrit 25.3 % (37.0-47.0); Hemoglobin 7.8 g/dL (12.0-15.0)
[2021-06-20 06:18] LABS: Glucose Point of Care 281 mg/dl (65-105)
[2021-06-20 07:38] LABS: Glucose Point of Care 200 mg/dl (65-105)
--- NOTE | 2021-06-20 09:00 | ECHO_ITS ---
Patient Info Name: Mine Dwyer Age: 70 years : 1950 Gender: Female Ht: 60 in Wt: 152 lbs BSA: 1.73 m2 HR: 62 bpm BP: 122 / 47 mmHg Technical Quality: Good Exam Date: 06/20/2021 1:35 PM Exam Location: [facility] Pulmonary Exam Room: 258 Patient Status: Outpatient Admit Date: 06/20/2021 Staff Ordering Physician: Maribel Disla M.A., MD Facility Service Associate: Pretty Escalera RDCS Attending Provider: Taryn Perea MD Referring Physician: Luisito LONGORIA; Exam Type: CA echo doppler color flow Study Info Indications - chf Complete two-dimensional, color flow and Doppler transthoracic echocardiogram is performed. Summary 1. Complete two-dimensional, color flow and Doppler transthoracic echocardiogram is performed. 2. Left ventricular systolic function is normal, estimated at 50-55%. 3. There is moderately increased left ventricular wall thickness. 4. The left ventricular diastolic function is grade II diastolic dysfunction. 5. Right ventricular chamber dimension is mildly enlarged. 6. Right ventricular systolic function is reduced. 7. Left atrial chamber dimension is severely enlarged. 8. Right atrial chamber dimension is moderately enlarged. 9. There is moderate aortic valve stenosis. 10. There is moderate aortic valve regurgitation. 11. Severe pulmonary hypertension, estimated pulmonary arterial systolic pressure is 74 mmHg. 12. Dilated inferior vena cava with <50% collapse upon inspiration consistent with elevated right atrial pressure, 15 mmHg. Left Ventricle Left ventricular systolic function is normal, estimated at 50-55%. There is moderately increased left ventricular wall thickness. The left ventricular diastolic function is grade II diastolic dysfunction. Left ventricular chamber dimension is normal. Right Ventricle Right ventricular chamber dimension is mildly enlarged. Right ventricular systolic function is reduced. Left Atria Left atrial chamber dimension is severely enlarged. Right Atria Right atrial chamber dimension is moderately enlarged. Aortic Valve The aortic valve is trileaflet. There is mild aortic valve sclerosis. There is moderate aortic valve stenosis. There is moderate aortic valve regurgitation. Pulmonic Valve The pulmonic valve is normal. There is no pulmonic valve stenosis. There is no pulmonic regurgitation. Mitral Valve The mitral valve has normal leaflets. There is no mitral valve stenosis. There is mild mitral valve regurgitation. Tricuspid Valve The tricuspid valve leaflets are normal. There is no significant tricuspid valve stenosis. There is mild to moderate tricuspid valve regurgitation. Severe pulmonary hypertension, estimated pulmonary arterial systolic pressure is 74 mmHg. Pericardium/Pleural The pericardium appears normal. There is no pericardial effusion. Inferior Vena Cava Dilated inferior vena cava with <50% collapse upon inspiration consistent with elevated right atrial pressure, 15 mmHg. Aorta The aortic root size at the sinus of Valsalva is normal. The prox ascending aorta size is normal. Left Ventricular Outflow Tract Name Value Normal LVOT 2D LVOT Diameter 2.0 cm L
[2021-06-20 09:06] LABS: Hematocrit 24.2 % (37.0-47.0); Hemoglobin 7.7 g/dL (12.0-15.0)
--- NOTE | 2021-06-20 09:12 | PM.IMHP ---
H&P: HPI History of Present Illness Date/Time: 06/20/21 09:12 Chief Complaint: 70 years old female with past medical history of chronic renal failure chronic respiratory failure on oxygen at home CHF pneumonia recent admission to the hospital for DKA and hypotension severe aortic stenosis presented to the hospital with not feeling well for few days associated with shortness of breath worsening gradually patient check her blood sugar was significantly elevated came to the ER also shoe was complaining of lower extremity swelling patient still complained of generalized weakness worsening gradually patient has history of severe aortic stenosis was deemed high risk for surgical intervention at the ER chest x-ray shows pulmonary edema versus pneumonia also creatinine was elevated has hyper glycemia patient admitted to the hospital for further evaluation of treatment of probable pneumonia CHF exacerbation and uncontrolled diabetes patient currently on 4 L of oxygen Review of Systems Review of Systems: Twelve system review was done negative except as per HPI COUNT INCLUDES THE [facility] Past Medical History Medical History Aortic valve stenosis moderate to severe noted on cardiac catheterization December 2019 Carotid stenosis (12/2018) bilateral carotid stenosis 50-69% Chronic anemia anemia of chronic disease Chronic kidney disease, stage IV (severe) Colon polyps Colonoscopy in August 2017 showing internal hemorrhoids. Diastolic congestive heart failure due to valvular disease grade 2 diastolic dysfunction, normal EF of 50%, severe left atrial enlargement, mild to moderate mitral valve regurgitation, [id number]-heixmfoa tricuspid valve regurgitation Hand fracture History of angiography Right leg Without intervention Hyperlipidemia Hypertension Lymphedema bilateral lower extremities left greater than right Mitral valve prolapse Obstructive sleep apnea on CPAP Osteoporosis Post-menopausal Retinopathy Severe pulmonary hypertension noted on echocardiogram 11/2019 with RVSP of 75 Type 2 diabetes mellitus with insulin therapy Surgical History Surgical History H/O cardiac catheterization (12/2019) mild coronary artery disease, moderate to severe aortic valve stenosis History of bilateral tubal ligation S/P cataract surgery bilateral 10/2019 Status post laser cataract surgery of both eyes Family History Family History Mother Hypertension DVT (deep venous thrombosis) Vertigo Father Hypertension Cerebrovascular accident Sibling Graves disease Vertigo Sibling Family history of thyroid disease Family history of obesity Mother Family history of cataracts Other Family history of arthritis Family history of hearing loss Social History Social History Social History: Ms. Dwyer is and lives in her own home in [place]. She has 3 daughters. Her daughter's names are Sera Moreno, Ava Allenn, and Danyell Resendez. She denies alcohol, tobacco, and drug use. 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 PCP: Dr Pierce Faith Code status: Full code Surrogate decision maker: Ava Amador (daughter) Smoking status: Never smoker Alcohol intake: never Substance use: never Substance use type: does not use Spiritual care concerns: No Meds Home Medications and Allergies Home Medications Medication Instructions Recorded Confirmed Type atorvastatin 40 mg PO QPM 12/29/18 06/20/21 History carvedilol 25 mg PO BID 01/27/21 06/20/21 History amlodipine 10 mg PO DAILY 03/17/21 06/20/21 History aspirin 81 mg PO HS 03/17/21 06/20/21 History insulin glargine 10 unit SUBCUT HS 03/20/21 06/20/21 History acetaminophen
[2021-06-20 10:06] LABS: Creatine Kinase 28 U/L (30-135); Uric Acid 8.1 mg/dL (2.5-7.5)
[2021-06-20 10:10] LABS: CRP < 0.5 mg/dL (<1.0)
[2021-06-20] MEDS: DOXYCYCLINE 100 MG/NS 100 ML 100 MG/100 ML BAG IVPB ×2 (10:10→20:28)
[2021-06-20] MEDS: carvediloL 25 MG TABLET PO ×2 (10:12→20:28)
[2021-06-20] MEDS: PANTOPRAZOLE 40 MG TABLET PO (10:13)
[2021-06-20] MEDS: CHOLECALCIFEROL 1,000 UNITS TABLET 5000 UNITS PO (10:13)
[2021-06-20] MEDS: HEPARIN SODIUM 5,000 UNITS/ML VIAL 5000 UNITS SUB-Q (10:13)
[2021-06-20] MEDS: MULTIVITAMINS THERAPEUTIC TAB (*BKC) 1 TABLET PO (10:13)
[2021-06-20] MEDS: FUROSEMIDE INJ 40 MG/4 ML VIAL 20 MG IV PUSH ×2 (10:14→16:13)
[2021-06-20 10:19] LABS: Troponin I 0.021 ng/mL (0.000-0.034)
[2021-06-20] MEDS: TOLNAFTATE 1% POWDER 45 GM BTL 1 APPLIC TOPICAL ×3 (10:20→16:13)
[2021-06-20 10:36] LABS: Procalcitonin 0.1 ng/mL
[2021-06-20] MEDS: INSULIN ASPART (*BKC) 100 UNITS/ML SUB-Q ×2 (11:35→17:07)
[2021-06-20 11:48] LABS: Glucose Point of Care 186 mg/dl (65-105)
[2021-06-20 12:45] LABS: Hematocrit 24.8 % (37.0-47.0)
--- NOTE | 2021-06-20 12:48 | PM.CNNEP ---
Assessment and Plan Assessment and plan (1) GISELLE (acute kidney injury): Code(s): N17.9 - Acute kidney failure, unspecified Status: Acute Assessment and Plan: due to pneumonia or exacerbation of CHF or perhaps both follow renal function closely in the setting of diuresis creatine has fluctuated to extremes in the last few years cannot deny the possibility of kidney disease progression as well (2) Chronic kidney disease, stage IV (severe): Code(s): N18.4 - Chronic kidney disease, stage 4 (severe) Status: Chronic Assessment and Plan: baseline creatine averages around 2.0 - 2.7mg/dl thought to be secondary to her HTN, DM, cardiac/vascular disease and need for diuretics to maintain her volume status noted fluctuations in kidney function due to fluid status and diuretics (3) Acute and chronic respiratory failure with hypoxia: Code(s): J96.21 - Acute and chronic respiratory failure with hypoxia Status: Acute Assessment and Plan: presumably due to pneumonia and heart failure follow respiratory status with current treatment (4) Acute on chronic diastolic heart failure: Code(s): I50.33 - Acute on chronic diastolic (congestive) heart failure Status: Acute Assessment and Plan: suspected based on CXR findings on IV diuretics follow daily weights, I/Os, and respiratory status (5) Hypertension: Code(s): I10 - Essential (primary) hypertension Status: Chronic Assessment and Plan: reasonable control follow trend of hemodynamics (6) Diabetes: Qualifiers: Diabetes mellitus complication status: with other specified complication Diabetes mellitus group home insulin use: with group home use Diabetes mellitus type: type 2 Qualified Code(s): E11.69 - Type 2 diabetes mellitus with other specified complication; 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 History of Present Illness Reason for Consult Consult date: 06/20/21 Reason for consult: acute renal failure (on chronic kidney disease) Chief Complaint Chief complaint: hyperglycemia,acute kidney injury,anemia History of Present Illness Narrative: The patient is a 70-year-old female with an extensive past medical history as outlined below who presented to [facility] Emergency room with complaints of shortness of breath and hyperglycemia. The patient reports that she has not been feeling well for last several days secondary to shortness of breath that has progressively /gradually getting worse in association with extremely elevated blood sugar levels. Other associated symptoms included increasing lower extremity swelling as well as generalized weakness. As she has a known history of congestive heart failure as well as hospitalizations for uncontrolled diabetes/DKA, she presented to the emergency room for further evaluation. Workup and evaluation emergency room demonstrated the patient to be hemodynamically stable but it appeared that sure oxygen requirements were little bit higher than baseline. Routine blood test demonstrated labs consistent with chronic kidney disease although her BUN and creatinine were higher than baseline. Furthermore, her blood sugar was noted to be 396 with Accu-Cheks in the 400s as well. Imaging study showed evidence of pulmonary edema versus pneumonia and her CBC did show worsening anemia in comparison to baseline. Given her constellation of symptoms and the aforementioned imaging and laboratory testing, she was admitted the hospital for further evaluation and therapy Since her admission, she has been started on a combination of IV antibiotics as well as IV diuretics in the hopes of optimizing her volume status and treating the suspected pneumonia.
[2021-06-20 13:05] LABS: Troponin I 0.019 ng/mL (0.000-0.034)
[2021-06-20 13:25] LABS: Iron 69 ug/dL (37-170)
[2021-06-20 13:35] LABS: Percent Iron Saturation 43 % (20-50)
[2021-06-20 13:46] LABS: Creatinine Urine 42.8 mg/dL
[2021-06-20 13:47] LABS: Potassium Urine Random 18.9 meq/L; Sodium Urine Random 99 meq/L
[2021-06-20 13:59] LABS: Influenza A QL RT-PCR Negative (Negative); Influenza B QL RT-PCR Negative (Negative); SARS-CoV-2 RNA PCR Negative
[2021-06-20 14:00] LABS: Folic Acid 13.9 ng/mL (2.76->20)
[2021-06-20 15:51] LABS: IFOB Positive Control Positive; Immunochemical Fecal Occult Bl Negative (N)
[2021-06-20 15:56] LABS: Hematocrit 27.3 % (37.0-47.0); Hemoglobin 8.5 g/dL (12.0-15.0)
[2021-06-20 16:20] LABS: Troponin I 0.019 ng/mL (0.000-0.034)
[2021-06-20 16:52] LABS: Glucose Point of Care 110 mg/dl (65-105)
[2021-06-20] MEDS: ATORVASTATIN 40 MG TABLET PO (17:13)
[2021-06-20 20:22] LABS: Glucose Point of Care 98 mg/dl (65-105)
[2021-06-20] MEDS: MIRTAZAPINE 15 MG TABLET PO (20:27)
[2021-06-20] MEDS: INSULIN GLARGINE (*BKC) 100 UNITS/ML 10 UNITS SUB-Q (20:29)
[2021-06-20 21:30] LABS: Hematocrit 27.7 % (37.0-47.0); Hemoglobin 8.8 g/dL (12.0-15.0)
[2021-06-21] VITALS (10 sets, daily range): BP systolic 127–145; BP diastolic 52–60; PULSE 58–73; RESP 16–19; TEMP 36.6–37.4; O2SAT 97–100
[2021-06-21 00:22] LABS: Glucose Point of Care 67 mg/dl (65-105)
[2021-06-21 00:22] LABS: Glucose Point of Care 84 mg/dl (65-105)
[2021-06-21 05:35] LABS: Glucose Point of Care 46 mg/dl (65-105)
[2021-06-21] MEDS: DEXTROSE 50% 25 GM/50 ML SYRINGE IV PUSH ×2 (05:36→06:01)
[2021-06-21 05:53] LABS: Total Protein Urine Random 33 mg/dL
[2021-06-21 06:09] LABS: Glucose Point of Care 82 mg/dl (65-105)
[2021-06-21 06:46] LABS: Basophils Absolute Auto 0.1 K/mm3 (0.0-0.1); Basophils Percent Auto 1.6 % (0.2-1.2); Eosinophils Absolute Auto 1.2 K/mm3 (0-0.3); Eosinophils Percent Auto 17.1 % (0-4.4); Hematocrit 26.3 % (37.0-47.0); Hemoglobin 8.2 g/dL (12.0-15.0); Immature Granulocyte Absolute 0.02 K/mm3 (0.00-0.031); Immature Granulocyte Percent A 0.3 % (0-0.5); Lymphocytes Absolute Auto 0.99 K/mm3 (0.9-3.2); Mean Corpuscular HGB Conc 31.2 g/dl (32-36); Mean Corpuscular Hemoglobin 31.3 pg (26-34); Mean Corpuscular Volume 100.4 fl (80-100); Mean Platelet Volume 11.1 fl (7.4-10.4); Monocytes Percent Auto 14.1 % (2.6-8.5); Neutrophils Absolute Auto 3.8 K/mm3 (1.3-6.7); Neutrophils Percent Auto 52.9 % (45.5-73.1); Platelet Count Result 186 k/mm3 (150-375); Red Blood Count 2.62 M/mm3 (4.2-5.4); Red Cell Distribution Width 15.1 % (11.5-14.5); White Blood Count 7.1 K/mm3 (4.5-10.0)
[2021-06-21 06:56] LABS: Alanine Aminotransferase 6 U/L (4-35); Albumin Level 2.6 g/dL (3.5-5.1); Alkaline Phosphatase 49 U/L (38-126); Anion Gap 4 mmol/L (8-16); Aspartate Amino Transferase 16 U/L (14-36); Bilirubin,Total 0.2 mg/dL (0.2-1.3); Blood Urea Nitrogen 48 mg/dL (7-17); Calcium 8.1 mg/dL (8.4-10.2); Carbon Dioxide 27 mmol/L (22-30); Chloride 104 mmol/L (98-107); Estimated CRCL calculation 13 ml/min; Estimated Glomerular Filt Rate 14; Glucose 106 mg/dL (65-110); Potassium 4.1 mmol/L (3.4-5.0); Sodium 135 mmol/L (137-145)
[2021-06-21 08:06] LABS: Glucose Point of Care 86 mg/dl (65-105)
[2021-06-21] MEDS: TOLNAFTATE 1% POWDER 45 GM BTL 1 APPLIC TOPICAL ×3 (08:21→16:56)
[2021-06-21] MEDS: carvediloL 25 MG TABLET PO ×2 (08:21→21:36)
[2021-06-21] MEDS: DOXYCYCLINE 100 MG/NS 100 ML 100 MG/100 ML BAG IVPB ×2 (08:22→21:43)
[2021-06-21] MEDS: CHOLECALCIFEROL 1,000 UNITS TABLET 5000 UNITS PO (08:22)
[2021-06-21] MEDS: MULTIVITAMINS THERAPEUTIC TAB (*BKC) 1 TABLET PO (08:22)
[2021-06-21] MEDS: PANTOPRAZOLE 40 MG TABLET PO (08:22)
[2021-06-21 09:03] LABS: Glucose Point of Care 106 mg/dl (65-105)
--- NOTE | 2021-06-21 09:23 | PM.IMPN ---
Progress Note: A&P Assessment and Plan (1) Pulmonary hypertension: Code(s): I27.20 - Pulmonary hypertension, unspecified Status: Acute Assessment and Plan: Monitor closely continue home medication Resume hydralazine and isosorbide (2) Acute hyperglycemia: Code(s): R73.9 - Hyperglycemia, unspecified Status: Acute Assessment and Plan: Secondary to uncontrolled diabetes mellitus type 2 Insulin sliding scale Lantus (3) Severe aortic stenosis: Code(s): I35.0 - Nonrheumatic aortic (valve) stenosis Status: Acute Assessment and Plan: Patient high risk for surgical intervention Follow-up with established cardiology as outpatient Monitor closely volume status Patient is very sensitive to volume status Daily evaluation for diuresis (4) Acute and chronic respiratory failure with hypoxia: Code(s): J96.21 - Acute and chronic respiratory failure with hypoxia Status: Acute Assessment and Plan: Multifactorial concern for pneumonia and pulmonary edema Improved daily evaluation for diuresis Blood culture sputum culture COVID-19 influenza test Empiric IV antibiotics (5) Acute on chronic diastolic heart failure: Code(s): I50.33 - Acute on chronic diastolic (congestive) heart failure Status: Acute Assessment and Plan: Status post IV Lasix daily evaluation for diuresis Serial troponin TSH Follow CMP and electrolytes Monitor closely as patient is sensitive to volume status changes as she has severe aortic stenosis (6) Diabetes: Code(s): E11.9 - Type 2 diabetes mellitus without complications Status: Chronic Assessment and Plan: Uncontrolled with hyperglycemia complicated with nephropathy Insulin sliding scale Lantus Diabetic diet (7) Hypertension: Code(s): I10 - Essential (primary) hypertension Status: Chronic Assessment and Plan: Continue Coreg isosorbide/hydralazine (8) Anemia in chronic illness: Code(s): D63.8 - Anemia in other chronic diseases classified elsewhere Status: Acute Assessment and Plan: Monitor closely transfuse if hemoglobin below 7 (9) Acute on chronic renal insufficiency: Code(s): N28.9 - Disorder of kidney and ureter, unspecified; N18.9 - Chronic kidney disease, unspecified Status: Acute Assessment and Plan: Nephrology consult CT scan of the abdomen pending Urine electrolytes was sent Most likely prerenal secondary to CHF exacerbation status post IV diuresis and re-evaluate Subjective Date/time seen: 06/21/21 09:23 Interval history: Chief Complaint: 70 years old female with past medical history of chronic renal failure chronic respiratory failure on oxygen at home CHF pneumonia recent admission to the hospital for DKA and hypotension severe aortic stenosis presented to the hospital with not feeling well for few days associated with shortness of breath worsening gradually patient check her blood sugar was significantly elevated came to the ER also shoe was complaining of lower extremity swelling patient still complained of generalized weakness worsening gradually patient has history of severe aortic stenosis was deemed high risk for surgical intervention at the ER chest x-ray shows pulmonary edema versus pneumonia also creatinine was elevated has hyper glycemia patient admitted to the hospital for further evaluation of treatment of probable pneumonia CHF exacerbation iris on ckd and uncontrolled diabetes patient pt was on 4 L of oxygen Status post 3 doses of IV Lasix Patient feels better today shortness of breath has improved Patient denies fever headache chest pain shortness of breath I am seeing the patient for shortness of breath Exam Narrative: Alert Chest positive crackles Abdomen nontender nondistended CVS S1 + S2 Mild Lower extremity edema Objective Data Vital Signs Vital Signs: Vital Signs - 24 hr 06/20/21 10:12 06/20/21
--- NOTE | 2021-06-21 09:57 | PC.NURSE ---
Informed MD Disla that pt doesn't have IV access at this time, if can't regain IV access ok to switch Rocephin to po Keflex 250 bid, and doxycycline 100 mg to PO doxycycline bid
[2021-06-21] MEDS: SODIUM ZIRCONIUM CYCLOSILICATE 10 GM POWD.PACK PO (10:04)
[2021-06-21 11:34] LABS: Glucose Point of Care 115 mg/dl (65-105)
[2021-06-21 11:42] LABS: Hematocrit 29.7 % (37.0-47.0); Hemoglobin 9.5 g/dL (12.0-15.0)
[2021-06-21] MEDS: INSULIN ASPART (*BKC) 100 UNITS/ML SUB-Q ×2 (11:57→19:24)
[2021-06-21] MEDS: hydrALAZINE 12.5 MG TABLET PO ×2 (12:07→21:38)
[2021-06-21] MEDS: hydrALAZINE HCL 25 MG TABLET PO ×2 (12:07→21:38)
[2021-06-21] MEDS: ISOSORBIDE DINITRATE 20 MG TABLET PO ×2 (12:07→16:56)
--- NOTE | 2021-06-21 12:15 | PM.PNNEP ---
Progress Note: A&P Assessment and Plan (1) GISELLE (acute kidney injury): Code(s): N17.9 - Acute kidney failure, unspecified Status: Acute Assessment and Plan: due to pneumonia or exacerbation of CHF or perhaps both follow renal function closely in the setting of diuresis creatine has fluctuated to extremes in the last few years cannot deny the possibility of kidney disease progression as well (2) Chronic kidney disease, stage IV (severe): Code(s): N18.4 - Chronic kidney disease, stage 4 (severe) Status: Chronic Assessment and Plan: baseline creatine averages around 2.0 - 2.7mg/dl thought to be secondary to her HTN, DM, cardiac/vascular disease and need for diuretics to maintain her volume status noted fluctuations in kidney function due to fluid status and diuretics (3) Acute and chronic respiratory failure with hypoxia: Code(s): J96.21 - Acute and chronic respiratory failure with hypoxia Status: Acute Assessment and Plan: presumably due to pneumonia and heart failure follow respiratory status with current treatment (4) Acute on chronic diastolic heart failure: Code(s): I50.33 - Acute on chronic diastolic (congestive) heart failure Status: Acute Assessment and Plan: suspected based on CXR findings on IV diuretics - careful with use given valvular heart disease follow daily weights, I/Os, and respiratory status (5) Hypertension: Code(s): I10 - Essential (primary) hypertension Status: Chronic Assessment and Plan: reasonable control follow trend of hemodynamics (6) Diabetes: Qualifiers: Diabetes mellitus type: type 2 Diabetes mellitus skilled nursing insulin use: with material control supervisor use Diabetes mellitus complication status: with other specified complication Qualified Code(s): E11.69 - Type 2 diabetes mellitus with other specified complication; Z79.4 - weaver dobby loom (current) use of insulin Code(s): E11.9 - Type 2 diabetes mellitus without complications Status: Chronic Assessment and Plan: follow accuchecks glycemic control Will continue to follow. Subjective Date/time seen: 06/21/21 12:15 States she is feeling better today in comparison to yesterday; her shortness of breath is still present but has improved in general; no other acute complaints voiced; no issues/events overnight or earlier this AM. Exam Narrative: General: ill appearing female in NAD Heart: normal S1 and S2; no rub Lungs: coarse and decreased at bases Abdomen: soft, nontender, nondistended, positive bowel sounds Extremities: no cyanosis or clubbing; trace - 1+ edema Skin: warm and dry Objective Data Vital Signs Vital Signs: Vital Signs Temp Pulse Resp BP Pulse Ox 06/21/21 12:00 70 06/21/21 08:21 60 06/21/21 08:00 37.1 C 70 16 138/54 L 100 06/21/21 04:00 37.2 C 58 L 16 127/53 L 98 06/21/21 00:00 64 06/20/21 23:20 36.3 C L 63 17 125/53 L 100 06/20/21 22:50 61 13 97 06/20/21 22:39 97 06/20/21 20:28 61 06/20/21 20:00 66 100 06/20/21 19:43 36.2 C L 61 17 144/55 H 100 06/20/21 16:26 37.0 C 62 14 151/50 H 100 06/20/21 16:00 57 L 06/20/21 13:40 36.6 C 62 14 123/49 L 99 Intake/Output Intake/Output: Intake & Output 06/18/21 06/19/21 06/20/21 06/21/21 23:59 23:59 23:59 23:59 Intake Total 2370 760 Output Total 300 200 Balance 2070 560 Meds/Results Medications: Active Medications Generic Name Dose Route Start Last Admin Trade Name Freq PRN Reason Stop Dose Admin Acetaminophen 650 mg 06/20/21 09:11 Acetaminophen 325 Mg Tablet PO Q4H PRN Mild Pain (1-3) or Fever Al Hydrox/Mg Hydrox/Simethicone 30 ml 06/20/21 09:11 Mag Hydrox/Al Hydrox/Simeth 30 Ml Udc PO QID PRN Dyspepsia Albuterol 2 puff 06/20/21 09:05 Albuterol Sulfate (*Sp) Aerosol 1 Puff INHALATION
--- NOTE | 2021-06-21 12:15 | P.PNNP_ITS ---
Progress Note: A&P Assessment and Plan (1) GISELLE (acute kidney injury): Code(s): N17.9 - Acute kidney failure, unspecified Status: Acute Assessment and Plan: * due to pneumonia or exacerbation of CHF or perhaps both * follow renal function closely in the setting of diuresis * creatine has fluctuated to extremes in the last few years * cannot deny the possibility of kidney disease progression as well (2) Chronic kidney disease, stage IV (severe): Code(s): N18.4 - Chronic kidney disease, stage 4 (severe) Status: Chronic Assessment and Plan: * baseline creatine averages around 2.0 - 2.7mg/dl * thought to be secondary to her HTN, DM, cardiac/vascular disease and need for diuretics to maintain her volume status * noted fluctuations in kidney function due to fluid status and diuretics (3) Acute and chronic respiratory failure with hypoxia: Code(s): J96.21 - Acute and chronic respiratory failure with hypoxia Status: Acute Assessment and Plan: * presumably due to pneumonia and heart failure * follow respiratory status with current treatment (4) Acute on chronic diastolic heart failure: Code(s): I50.33 - Acute on chronic diastolic (congestive) heart failure Status: Acute Assessment and Plan: * suspected based on CXR findings * on IV diuretics - careful with use given valvular heart disease * follow daily weights, I/Os, and respiratory status (5) Hypertension: Code(s): I10 - Essential (primary) hypertension Status: Chronic Assessment and Plan: * reasonable control * follow trend of hemodynamics (6) Diabetes: Qualifiers: Diabetes mellitus type: type 2 Diabetes mellitus moth exterminator insulin use: with moth exterminator use Diabetes mellitus complication status: with other specified complication Qualified Code(s): E11.69 - Type 2 diabetes mellitus with other specified complication; Z79.4 - penitentiary (current) use of insulin Code(s): E11.9 - Type 2 diabetes mellitus without complications Status: Chronic Assessment and Plan: * follow accuchecks * glycemic control Will continue to follow. Subjective Date/time seen: 06/21/21 12:15 States she is feeling better today in comparison to yesterday; her shortness of breath is still present but has improved in general; no other acute complaints voiced; no issues/events overnight or earlier this AM. Exam Narrative: General: ill appearing female in NAD Heart: normal S1 and S2; no rub Lungs: coarse and decreased at bases Abdomen: soft, nontender, nondistended, positive bowel sounds Extremities: no cyanosis or clubbing; trace - 1+ edema Skin: warm and dry Objective Data Vital Signs Vital Signs: Vital Signs Temp Pulse Resp BP Pulse Ox 06/21/21 12:00 70 06/21/21 08:21 60 06/21/21 08:00 37.1 C 70 16 138/54 L 100 06/21/21 04:00 37.2 C 58 L 16 127/53 L 98 06/21/21 00:00 64 06/20/21 23:20 36.3 C L 63 17 125/53 L 100 06/20/21 22:50 61 13 97 06/20/21 22:39 97 06/20/21 20:28 61 06/20/21 20:00 66 100 06/20/21 19:43 36.2 C L 61 17 144/55 H 100 06/20/21 16:26 37.0 C 62 14 151/50 H 100 06/20/21 16:00 57 L 06/20/21 13:40 36.6 C 62 14 123/49 L 99 Intake/Output Intake/Output:
[2021-06-21 16:37] LABS: Glucose Point of Care 156 mg/dl (65-105)
[2021-06-21] MEDS: ATORVASTATIN 40 MG TABLET PO (16:57)
[2021-06-21] MEDS: MIRTAZAPINE 15 MG TABLET PO (21:37)
[2021-06-21] MEDS: INSULIN GLARGINE (*BKC) 100 UNITS/ML 10 UNITS SUB-Q (21:45)
[2021-06-21 23:00] LABS: Glucose Point of Care 196 mg/dl (65-105)
[2021-06-22] VITALS (14 sets, daily range): BP systolic 132–149; BP diastolic 50–72; PULSE 61–74; RESP 14–21; TEMP 36.3–37.2; O2SAT 95–100
[2021-06-22] MEDS: hydrALAZINE 12.5 MG TABLET PO ×3 (06:06→23:39)
[2021-06-22] MEDS: hydrALAZINE HCL 25 MG TABLET PO ×3 (06:06→23:39)
[2021-06-22 06:10] LABS: Glucose Point of Care 95 mg/dl (65-105)
[2021-06-22 06:28] LABS: Basophils Absolute Auto 0.1 K/mm3 (0.0-0.1); Basophils Percent Auto 0.9 % (0.2-1.2); Eosinophils Absolute Auto 1.2 K/mm3 (0-0.3); Hemoglobin 7.9 g/dL (12.0-15.0); Immature Granulocyte Absolute 0.01 K/mm3 (0.00-0.031); Immature Granulocyte Percent A 0.1 % (0-0.5); Lymphocytes Percent Auto 14.5 % (18.3-44.2); Mean Corpuscular HGB Conc 31.6 g/dl (32-36); Mean Corpuscular Hemoglobin 31.3 pg (26-34); Mean Corpuscular Volume 99.2 fl (80-100); Mean Platelet Volume 11.8 fl (7.4-10.4); Monocytes Absolute Auto 1.1 K/mm3 (0.1-0.6); Monocytes Percent Auto 15.2 % (2.6-8.5); Neutrophils Absolute Auto 3.5 K/mm3 (1.3-6.7); Neutrophils Percent Auto 51.3 % (45.5-73.1); Platelet Count Result 185 k/mm3 (150-375); Red Blood Count 2.52 M/mm3 (4.2-5.4); White Blood Count 6.9 K/mm3 (4.5-10.0)
[2021-06-22 07:57] LABS: Glucose Point of Care 68 mg/dl (65-105)
[2021-06-22] MEDS: CHOLECALCIFEROL 1,000 UNITS TABLET 5000 UNITS PO (08:08)
[2021-06-22] MEDS: DOXYCYCLINE 100 MG/NS 100 ML 100 MG/100 ML BAG IVPB ×2 (08:09→21:49)
[2021-06-22] MEDS: MULTIVITAMINS THERAPEUTIC TAB (*BKC) 1 TABLET PO (08:09)
[2021-06-22] MEDS: TOLNAFTATE 1% POWDER 45 GM BTL 1 APPLIC TOPICAL ×3 (08:09→16:28)
[2021-06-22] MEDS: ISOSORBIDE DINITRATE 20 MG TABLET PO ×3 (08:09→16:28)
[2021-06-22] MEDS: PANTOPRAZOLE 40 MG TABLET PO (08:09)
[2021-06-22] MEDS: carvediloL 25 MG TABLET PO ×2 (08:12→21:49)
[2021-06-22 08:26] LABS: Alanine Aminotransferase 6 U/L (6-35); Albumin Level 2.4 g/dL (3.5-5.1); Alkaline Phosphatase 47 U/L (38-126); Anion Gap 5 mmol/L (8-16); Aspartate Amino Transferase 17 U/L (14-36); Bilirubin,Total 0.1 mg/dL (0.2-1.3); Blood Urea Nitrogen 48 mg/dL (7-17); Calcium 7.8 mg/dL (8.4-10.2); Carbon Dioxide 25 mmol/L (22-30); Chloride 105 mmol/L (98-107); Estimated CRCL calculation 14 ml/min; Estimated Glomerular Filt Rate 15; Glucose 110 mg/dL (65-110); Potassium 3.6 mmol/L (3.4-5.0); Sodium 135 mmol/L (137-145)
--- NOTE | 2021-06-22 08:29 | PM.IMPN ---
Progress Note: A&P Assessment and Plan (1) Pulmonary hypertension: Code(s): I27.20 - Pulmonary hypertension, unspecified Status: Acute Assessment and Plan: Monitor closely continue home medication Resume hydralazine and isosorbide (2) Acute hyperglycemia: Code(s): R73.9 - Hyperglycemia, unspecified Status: Acute Assessment and Plan: Secondary to uncontrolled diabetes mellitus type 2 Insulin sliding scale Lantus (3) Severe aortic stenosis: Code(s): I35.0 - Nonrheumatic aortic (valve) stenosis Status: Acute Assessment and Plan: Patient high risk for surgical intervention Follow-up with established cardiology as outpatient Monitor closely volume status Patient is very sensitive to volume status Currently of diuretic (4) Acute and chronic respiratory failure with hypoxia: Code(s): J96.21 - Acute and chronic respiratory failure with hypoxia Status: Acute Assessment and Plan: Multifactorial concern for pneumonia and pulmonary edema Improved daily evaluation for diuresis Blood culture sputum culture COVID-19 influenza test negative so far Empiric IV antibiotics Repeat chest x-ray (5) Acute on chronic diastolic heart failure: Code(s): I50.33 - Acute on chronic diastolic (congestive) heart failure Status: Acute Assessment and Plan: Status post IV Lasix daily evaluation for diuresis Serial troponin Currently diuretic on hold Follow CMP and electrolytes Monitor closely as patient is sensitive to volume status changes as she has severe aortic stenosis (6) Diabetes: Code(s): E11.9 - Type 2 diabetes mellitus without complications Status: Chronic Assessment and Plan: Uncontrolled with hyperglycemia complicated with nephropathy Insulin sliding scale Lantus Diabetic diet (7) Hypertension: Code(s): I10 - Essential (primary) hypertension Status: Chronic Assessment and Plan: Continue Coreg isosorbide/hydralazine (8) Anemia in chronic illness: Code(s): D63.8 - Anemia in other chronic diseases classified elsewhere Status: Acute Assessment and Plan: Monitor closely transfuse if hemoglobin below 7 (9) Acute on chronic renal insufficiency: Code(s): N28.9 - Disorder of kidney and ureter, unspecified; N18.9 - Chronic kidney disease, unspecified Status: Acute Assessment and Plan: Nephrology consult CT scan of the abdomen pending Urine electrolytes was sent Most likely prerenal secondary to CHF exacerbation status post IV diuresis and re-evaluate CHF appears euvolemic Start gentle IV hydration for 10 hours Nephrology following Subjective Date/time seen: 06/22/21 08:29 Interval history: Chief Complaint: 70 years old female with past medical history of chronic renal failure chronic respiratory failure on oxygen at home CHF pneumonia recent admission to the hospital for DKA and hypotension severe aortic stenosis presented to the hospital with not feeling well for few days associated with shortness of breath worsening gradually patient check her blood sugar was significantly elevated came to the ER also shoe was complaining of lower extremity swelling patient still complained of generalized weakness worsening gradually patient has history of severe aortic stenosis was deemed high risk for surgical intervention at the ER chest x-ray shows pulmonary edema versus pneumonia also creatinine was elevated has hyper glycemia patient admitted to the hospital for further evaluation of treatment of probable pneumonia CHF exacerbation iris on ckd and uncontrolled diabetes patient pt was on 4 L of oxygen patient was treated with IV Lasix shortness of breath has improved echo shows ejection fraction 55% moderate aortic stenosis severe pulmonary hypertension renal function improved lower extremity swelling has improved patient was restarted on IV fluid at 50 mL/hour for acute renal failure o
[2021-06-22] MEDS: SODIUM ZIRCONIUM CYCLOSILICATE 10 GM POWD.PACK PO (09:33)
[2021-06-22] MEDS: SODIUM CHLORIDE 0.9% IV 1,000 ML 50 ML IV CONT (09:33)
[2021-06-22 10:09] LABS: Glucose Point of Care 103 mg/dl (65-105)
[2021-06-22 11:38] LABS: Hematocrit 26.5 % (37.0-47.0); Hemoglobin 8.1 g/dL (12.0-15.0)
[2021-06-22 12:10] LABS: Glucose Point of Care 112 mg/dl (65-105)
--- NOTE | 2021-06-22 12:32 | P.PNNP_ITS ---
Progress Note: A&P Assessment and Plan (1) GISELLE (acute kidney injury): Code(s): N17.9 - Acute kidney failure, unspecified Status: Acute Assessment and Plan: * due to pneumonia or exacerbation of CHF or perhaps both * follow renal function closely in the setting of diuresis * creatine has fluctuated to extremes in the last few years * cannot deny the possibility of kidney disease progression as well (2) Chronic kidney disease, stage IV (severe): Code(s): N18.4 - Chronic kidney disease, stage 4 (severe) Status: Chronic Assessment and Plan: * baseline creatine averages around 2.0 - 2.7mg/dl * thought to be secondary to her HTN, DM, cardiac/vascular disease and need for diuretics to maintain her volume status * noted fluctuations in kidney function due to fluid status and diuretics (3) Acute and chronic respiratory failure with hypoxia: Code(s): J96.21 - Acute and chronic respiratory failure with hypoxia Status: Acute Assessment and Plan: * presumably due to pneumonia and heart failure * follow respiratory status with current treatment (4) Acute on chronic diastolic heart failure: Code(s): I50.33 - Acute on chronic diastolic (congestive) heart failure Status: Acute Assessment and Plan: * suspected based on CXR findings * back on IV diuretics - careful with use given valvular heart disease * follow daily weights, I/Os, and respiratory status (5) Hypertension: Code(s): I10 - Essential (primary) hypertension Status: Chronic Assessment and Plan: * reasonable control * follow trend of hemodynamics (6) Diabetes: Qualifiers: Diabetes mellitus complication status: with other specified complication Diabetes mellitus mill stenciler insulin use: with fpc use Diabetes mellitus type: type 2 Qualified Code(s): E11.69 - Type 2 diabetes mellitus with other specified complication; Z79.4 - assisted (current) use of insulin Code(s): E11.9 - Type 2 diabetes mellitus without complications Status: Chronic Assessment and Plan: * follow accuchecks * glycemic control Will continue to follow. Subjective Date/time seen: 06/22/21 12:32 States that she does not feel that well today but cannot be more specific but does admit she felt better yesterday; breathing seems about the same today; CXR today noted and resumed of IV lasix; no other acute complaints voiced. Exam Narrative: General: ill appearing female in NAD Heart: normal S1 and S2; no rub Lungs: coarse and decreased at bases Abdomen: soft, nontender, nondistended, positive bowel sounds Extremities: no cyanosis or clubbing; trace - 1+ edema Skin: warm and intact Objective Data Vital Signs Vital Signs: Vital Signs Temp Pulse Resp BP Pulse Ox 06/22/21 12:09 37.2 C 66 16 149/52 H 100 06/22/21 12:00 64 06/22/21 08:12 70 06/22/21 08:00 70 16 95 06/22/21 05:53 36.3 C L 69 16 132/59 L 95 06/22/21 04:00 61 06/22/21 03:30 70 14 95 06/22/21 00:43 36.8 C 70 16 136/50 L 95 06/22/21 00:00 66 06/21/21 22:46 69 19 98 06/21/21 21:36 72 06/21/21 20:38 36.6 C 72 18 145/52 H 97 06/21/21 20:00 73 Intake/Output Intake/Output: Intake & Output
--- NOTE | 2021-06-22 12:32 | PM.PNNEP ---
Progress Note: A&P Assessment and Plan (1) GISELLE (acute kidney injury): Code(s): N17.9 - Acute kidney failure, unspecified Status: Acute Assessment and Plan: due to pneumonia or exacerbation of CHF or perhaps both follow renal function closely in the setting of diuresis creatine has fluctuated to extremes in the last few years cannot deny the possibility of kidney disease progression as well (2) Chronic kidney disease, stage IV (severe): Code(s): N18.4 - Chronic kidney disease, stage 4 (severe) Status: Chronic Assessment and Plan: baseline creatine averages around 2.0 - 2.7mg/dl thought to be secondary to her HTN, DM, cardiac/vascular disease and need for diuretics to maintain her volume status noted fluctuations in kidney function due to fluid status and diuretics (3) Acute and chronic respiratory failure with hypoxia: Code(s): J96.21 - Acute and chronic respiratory failure with hypoxia Status: Acute Assessment and Plan: presumably due to pneumonia and heart failure follow respiratory status with current treatment (4) Acute on chronic diastolic heart failure: Code(s): I50.33 - Acute on chronic diastolic (congestive) heart failure Status: Acute Assessment and Plan: suspected based on CXR findings back on IV diuretics - careful with use given valvular heart disease follow daily weights, I/Os, and respiratory status (5) Hypertension: Code(s): I10 - Essential (primary) hypertension Status: Chronic Assessment and Plan: reasonable control follow trend of hemodynamics (6) Diabetes: Qualifiers: Diabetes mellitus complication status: with other specified complication Diabetes mellitus group home insulin use: with rn long term care use Diabetes mellitus type: type 2 Qualified Code(s): E11.69 - Type 2 diabetes mellitus with other specified complication; Z79.4 - skilled nursing (current) use of insulin Code(s): E11.9 - Type 2 diabetes mellitus without complications Status: Chronic Assessment and Plan: follow accuchecks glycemic control Will continue to follow. Subjective Date/time seen: 06/22/21 12:32 States that she does not feel that well today but cannot be more specific but does admit she felt better yesterday; breathing seems about the same today; CXR today noted and resumed of IV lasix; no other acute complaints voiced. Exam Narrative: General: ill appearing female in NAD Heart: normal S1 and S2; no rub Lungs: coarse and decreased at bases Abdomen: soft, nontender, nondistended, positive bowel sounds Extremities: no cyanosis or clubbing; trace - 1+ edema Skin: warm and intact Objective Data Vital Signs Vital Signs: Vital Signs Temp Pulse Resp BP Pulse Ox 06/22/21 12:09 37.2 C 66 16 149/52 H 100 06/22/21 12:00 64 06/22/21 08:12 70 06/22/21 08:00 70 16 95 06/22/21 05:53 36.3 C L 69 16 132/59 L 95 06/22/21 04:00 61 06/22/21 03:30 70 14 95 06/22/21 00:43 36.8 C 70 16 136/50 L 95 06/22/21 00:00 66 06/21/21 22:46 69 19 98 06/21/21 21:36 72 06/21/21 20:38 36.6 C 72 18 145/52 H 97 06/21/21 20:00 73 Intake/Output Intake/Output: Intake & Output 06/19/21 06/20/21 06/21/21 06/22/21 23:59 23:59 23:59 23:59 Intake Total 2370 1324 540 Output Total 300 200 Balance 2070 1124 540 Meds/Results Medications: Active Medications Generic Name Dose Route Start Last Admin Trade Name Freq PRN Reason Stop Dose Admin Acetaminophen 650 mg 06/20/21 09:11 Acetaminophen 325 Mg Tablet PO Q4H PRN Mild Pain (1-3) or Fever Al Hydrox/Mg Hydrox/Simethicone 30 ml 06/20/21 09:11 Mag Hydrox/Al Hydrox/Simeth 30 Ml Udc PO QID PRN Dyspepsia Albuterol 2 puff 06/20/21 09:05 Albuterol Sulfate (*Sp) Aerosol 1 Puff INHALATION QID PRN Shortness Of Noni
[2021-06-22] MEDS: FUROSEMIDE 40 MG TABLET PO (15:08)
[2021-06-22] MEDS: ATORVASTATIN 40 MG TABLET PO (16:28)
[2021-06-22 16:30] LABS: Glucose Point of Care 200 mg/dl (65-105)
[2021-06-22] MEDS: INSULIN ASPART (*BKC) 100 UNITS/ML SUB-Q (18:09)
[2021-06-22 18:17] LABS: Pneumococcal Antigen Urine Not Detected (Not Detected)
[2021-06-22] MEDS: MIRTAZAPINE 15 MG TABLET PO (21:50)
[2021-06-22] MEDS: INSULIN GLARGINE (*BKC) 100 UNITS/ML 10 UNITS SUB-Q (21:59)
[2021-06-22 22:05] LABS: Glucose Point of Care 258 mg/dl (65-105)
[2021-06-23] VITALS (11 sets, daily range): BP systolic 135–160; BP diastolic 53–69; PULSE 64–77; RESP 13–20; TEMP 36.3–37.5; O2SAT 92–100
[2021-06-23 05:41] LABS: Basophils Absolute Auto 0.1 K/mm3 (0.0-0.1); Basophils Percent Auto 1.2 % (0.2-1.2); Eosinophils Absolute Auto 1.3 K/mm3 (0-0.3); Eosinophils Percent Auto 18.9 % (0-4.4); Hematocrit 25.4 % (37.0-47.0); Hemoglobin 7.8 g/dL (12.0-15.0); Immature Granulocyte Absolute 0.03 K/mm3 (0.00-0.031); Immature Granulocyte Percent A 0.5 % (0-0.5); Lymphocytes Absolute Auto 0.94 K/mm3 (0.9-3.2); Lymphocytes Percent Auto 14.2 % (18.3-44.2); Mean Corpuscular HGB Conc 30.7 g/dl (32-36); Mean Corpuscular Hemoglobin 31.1 pg (26-34); Mean Corpuscular Volume 101.2 fl (80-100); Mean Platelet Volume 11.2 fl (7.4-10.4); Monocytes Absolute Auto 0.9 K/mm3 (0.1-0.6); Monocytes Percent Auto 13.8 % (2.6-8.5); Neutrophils Absolute Auto 3.4 K/mm3 (1.3-6.7); Neutrophils Percent Auto 51.4 % (45.5-73.1); Platelet Count Result 184 k/mm3 (150-375); Red Blood Count 2.51 M/mm3 (4.2-5.4); White Blood Count 6.6 K/mm3 (4.5-10.0)
[2021-06-23 05:55] LABS: Alanine Aminotransferase 6 U/L (6-35); Albumin Level 2.7 g/dL (3.5-5.1); Alkaline Phosphatase 50 U/L (38-126); Anion Gap 4 mmol/L (8-16); Aspartate Amino Transferase 16 U/L (14-36); Bilirubin,Total < 0.1 mg/dL (0.2-1.3); Blood Urea Nitrogen 45 mg/dL (7-17); Carbon Dioxide 27 mmol/L (22-30); Chloride 105 mmol/L (98-107); Estimated CRCL calculation 14 ml/min; Estimated Glomerular Filt Rate 16; Glucose 163 mg/dL (65-110); Potassium 3.7 mmol/L (3.4-5.0); Sodium 136 mmol/L (137-145)
[2021-06-23 07:56] LABS: Glucose Point of Care 101 mg/dl (65-105)
[2021-06-23] MEDS: CHOLECALCIFEROL 1,000 UNITS TABLET 5000 UNITS PO (09:57)
[2021-06-23] MEDS: ISOSORBIDE DINITRATE 20 MG TABLET PO ×3 (09:57→18:51)
[2021-06-23] MEDS: FUROSEMIDE 40 MG TABLET PO (09:57)
[2021-06-23] MEDS: MULTIVITAMINS THERAPEUTIC TAB (*BKC) 1 TABLET PO (09:57)
[2021-06-23] MEDS: hydrALAZINE HCL 25 MG TABLET PO ×3 (09:58→22:52)
[2021-06-23] MEDS: hydrALAZINE 12.5 MG TABLET PO ×3 (09:58→22:52)
[2021-06-23] MEDS: PANTOPRAZOLE 40 MG TABLET PO (09:58)
[2021-06-23] MEDS: carvediloL 25 MG TABLET PO ×2 (09:58→20:50)
[2021-06-23] MEDS: TOLNAFTATE 1% POWDER 45 GM BTL 1 APPLIC TOPICAL ×3 (10:01→18:51)
[2021-06-23] MEDS: DOXYCYCLINE 100 MG/NS 100 ML 100 MG/100 ML BAG IVPB ×2 (10:09→20:43)
[2021-06-23 10:16] LABS: Glucose Point of Care 86 mg/dl (65-105)
--- NOTE | 2021-06-23 10:49 | P.PNNP_ITS ---
Progress Note: A&P Assessment and Plan (1) GISELLE (acute kidney injury): Code(s): N17.9 - Acute kidney failure, unspecified Status: Acute Assessment and Plan: * due to pneumonia or exacerbation of CHF or perhaps both * follow renal function closely in the setting of diuresis * creatine has fluctuated to extremes in the last few years * cannot deny the possibility of kidney disease progression as well (2) Chronic kidney disease, stage IV (severe): Code(s): N18.4 - Chronic kidney disease, stage 4 (severe) Status: Chronic Assessment and Plan: * baseline creatine averages around 2.0 - 2.7mg/dl * thought to be secondary to her HTN, DM, cardiac/vascular disease and need for diuretics to maintain her volume status * noted fluctuations in kidney function due to fluid status and diuretics (3) Acute and chronic respiratory failure with hypoxia: Code(s): J96.21 - Acute and chronic respiratory failure with hypoxia Status: Acute Assessment and Plan: * presumably due to pneumonia and heart failure * follow respiratory status with current treatment (4) Acute on chronic diastolic heart failure: Code(s): I50.33 - Acute on chronic diastolic (congestive) heart failure Status: Acute Assessment and Plan: * suspected based on CXR findings * back on IV diuretics - careful with use given valvular heart disease * follow daily weights, I/Os, and respiratory status (5) Anemia: Code(s): D64.9 - Anemia, unspecified Status: Chronic Assessment and Plan: * likely due to CKD as well as acute illness * may need to consider ESAs * follow H/H (6) Hypertension: Code(s): I10 - Essential (primary) hypertension Status: Chronic Assessment and Plan: * reasonable control * follow trend of hemodynamics (7) Diabetes: Qualifiers: Diabetes mellitus complication status: with other specified complication Diabetes mellitus penitentiary insulin use: with penitentiary use Diabetes mellitus type: type 2 Qualified Code(s): E11.69 - Type 2 diabetes mellitus with other specified complication; Z79.4 - termite control service representative (current) use of insulin Code(s): E11.9 - Type 2 diabetes mellitus without complications Status: Chronic Assessment and Plan: * follow accuchecks * glycemic control Will continue to follow. Subjective Date/time seen: 06/23/21 10:49 Slow improvement in symptom as this time; renal function tolerating diuresis if not improving; no issues/events overnight or earlier this AM; no acute distress but still does not feel well. Exam Narrative: General: ill appearing female in NAD Heart: normal S1 and S2; no rub Lungs: coarse and decreased at bases Abdomen: soft, nontender, nondistended, positive bowel sounds Extremities: no cyanosis or clubbing; trace - 1+ edema Skin: no rash Objective Data Vital Signs Vital Signs: Vital Signs Temp Pulse Resp BP Pulse Ox 06/23/21 09:58 68 06/23/21 08:00 36.3 C L 69 18 160/69 H 92 06/23/21 04:00 36.4 C 66 20 135/53 L 98 06/23/21 02:35 68 13 95 06/23/21 00:00 36.4 C 68 20 149/62 H 98 06/22/21 23:01 96 06/22/21 23:00 66 15 96 06/22/21 21:49 73 06/22/21 20:00 36.3 C L 74 21 H 138/56 L 100 06/22/21 16:00 36.7 C 72 16 140/72 100 06/22/21 12:
--- NOTE | 2021-06-23 10:49 | PM.PNNEP ---
Progress Note: A&P Assessment and Plan (1) GISELLE (acute kidney injury): Code(s): N17.9 - Acute kidney failure, unspecified Status: Acute Assessment and Plan: due to pneumonia or exacerbation of CHF or perhaps both follow renal function closely in the setting of diuresis creatine has fluctuated to extremes in the last few years cannot deny the possibility of kidney disease progression as well (2) Chronic kidney disease, stage IV (severe): Code(s): N18.4 - Chronic kidney disease, stage 4 (severe) Status: Chronic Assessment and Plan: baseline creatine averages around 2.0 - 2.7mg/dl thought to be secondary to her HTN, DM, cardiac/vascular disease and need for diuretics to maintain her volume status noted fluctuations in kidney function due to fluid status and diuretics (3) Acute and chronic respiratory failure with hypoxia: Code(s): J96.21 - Acute and chronic respiratory failure with hypoxia Status: Acute Assessment and Plan: presumably due to pneumonia and heart failure follow respiratory status with current treatment (4) Acute on chronic diastolic heart failure: Code(s): I50.33 - Acute on chronic diastolic (congestive) heart failure Status: Acute Assessment and Plan: suspected based on CXR findings back on IV diuretics - careful with use given valvular heart disease follow daily weights, I/Os, and respiratory status (5) Anemia: Code(s): D64.9 - Anemia, unspecified Status: Chronic Assessment and Plan: likely due to CKD as well as acute illness may need to consider ESAs follow H/H (6) Hypertension: Code(s): I10 - Essential (primary) hypertension Status: Chronic Assessment and Plan: reasonable control follow trend of hemodynamics (7) Diabetes: Qualifiers: Diabetes mellitus complication status: with other specified complication Diabetes mellitus retirement insulin use: with retirement use Diabetes mellitus type: type 2 Qualified Code(s): E11.69 - Type 2 diabetes mellitus with other specified complication; Z79.4 - alf (current) use of insulin Code(s): E11.9 - Type 2 diabetes mellitus without complications Status: Chronic Assessment and Plan: follow accuchecks glycemic control Will continue to follow. Subjective Date/time seen: 06/23/21 10:49 Slow improvement in symptom as this time; renal function tolerating diuresis if not improving; no issues/events overnight or earlier this AM; no acute distress but still does not feel well. Exam Narrative: General: ill appearing female in NAD Heart: normal S1 and S2; no rub Lungs: coarse and decreased at bases Abdomen: soft, nontender, nondistended, positive bowel sounds Extremities: no cyanosis or clubbing; trace - 1+ edema Skin: no rash Objective Data Vital Signs Vital Signs: Vital Signs Temp Pulse Resp BP Pulse Ox 06/23/21 09:58 68 06/23/21 08:00 36.3 C L 69 18 160/69 H 92 06/23/21 04:00 36.4 C 66 20 135/53 L 98 06/23/21 02:35 68 13 95 06/23/21 00:00 36.4 C 68 20 149/62 H 98 06/22/21 23:01 96 06/22/21 23:00 66 15 96 06/22/21 21:49 73 06/22/21 20:00 36.3 C L 74 21 H 138/56 L 100 06/22/21 16:00 36.7 C 72 16 140/72 100 06/22/21 12:09 37.2 C 66 16 149/52 H 100 06/22/21 12:00 64 Intake/Output Intake/Output: Intake & Output 06/20/21 06/21/21 06/22/21 06/23/21 23:59 23:59 23:59 23:59 Intake Total 2370 1324 1080 480 Output Total 300 200 Balance 2070 1124 1080 480 Meds/Results Medications: Active Medications Generic Name Dose Route Start Last Admin Trade Name Freq PRN Reason Stop Dose Admin Acetaminophen 650 mg 06/20/21 09:11 Acetaminophen 325 Mg Tablet PO Q4H PRN Mild Pain (1-3) or Fever Al Hydrox/Mg Hydrox/Simethicone 30 ml 06/20/21 09:11 Mag Hydrox/Al Hydrox/
[2021-06-23] MEDS: SODIUM ZIRCONIUM CYCLOSILICATE 10 GM POWD.PACK PO (11:05)
[2021-06-23 11:14] LABS: Glucose Point of Care 88 mg/dl (65-105)
[2021-06-23 11:57] LABS: Hematocrit 28.3 % (37.0-47.0); Hemoglobin 8.8 g/dL (12.0-15.0)
--- NOTE | 2021-06-23 14:10 | P.PNIM_ITS ---
Progress Note: A&P Assessment and Plan (1) Pulmonary hypertension: Code(s): I27.20 - Pulmonary hypertension, unspecified Status: Acute Assessment and Plan: Monitor closely continue home medication Resume hydralazine and isosorbide (2) Acute hyperglycemia: Code(s): R73.9 - Hyperglycemia, unspecified Status: Acute Assessment and Plan: Secondary to uncontrolled diabetes mellitus type 2 Insulin sliding scale Lantus (3) Severe aortic stenosis: Code(s): I35.0 - Nonrheumatic aortic (valve) stenosis Status: Acute Assessment and Plan: Patient high risk for surgical intervention Follow-up with established cardiology as outpatient Monitor closely volume status Patient is very sensitive to volume status Currently of diuretic (4) Acute and chronic respiratory failure with hypoxia: Code(s): J96.21 - Acute and chronic respiratory failure with hypoxia Status: Acute Assessment and Plan: Multifactorial concern for pneumonia and pulmonary edema Improved daily evaluation for diuresis Blood culture sputum culture COVID-19 influenza test negative so far Empiric IV antibiotics Repeat chest x-ray (5) Acute on chronic diastolic heart failure: Code(s): I50.33 - Acute on chronic diastolic (congestive) heart failure Status: Acute Assessment and Plan: Status post IV Lasix daily evaluation for diuresis Serial troponin Currently diuretic on hold Follow CMP and electrolytes Monitor closely as patient is sensitive to volume status changes as she has severe aortic stenosis (6) Diabetes: Code(s): E11.9 - Type 2 diabetes mellitus without complications Status: Chronic Assessment and Plan: Uncontrolled with hyperglycemia complicated with nephropathy Insulin sliding scale Lantus Diabetic diet (7) Hypertension: Code(s): I10 - Essential (primary) hypertension Status: Chronic Assessment and Plan: Continue Coreg isosorbide/hydralazine (8) Anemia in chronic illness: Code(s): D63.8 - Anemia in other chronic diseases classified elsewhere Status: Acute Assessment and Plan: Monitor closely transfuse if hemoglobin below 7 (9) Acute on chronic renal insufficiency: Code(s): N28.9 - Disorder of kidney and ureter, unspecified; N18.9 - Chronic kidney disease, unspecified Status: Acute Assessment and Plan: Nephrology consult CT scan of the abdomen pending Urine electrolytes was sent Most likely prerenal secondary to CHF exacerbation status post IV diuresis and re-evaluate CHF appears euvolemic Start gentle IV hydration for 10 hours Nephrology following Subjective Date/time seen: 06/23/21 14:10 Interval history: Chief Complaint: 70 years old female with past medical history of chronic renal failure chronic respiratory failure on oxygen at home CHF pneumonia recent admission to the hospital for DKA and hypotension severe aortic stenosis presented to the hospital with not feeling well for few days associated with shortness of breath worsening gradually patient check her blood sugar was significantly elevated came to the ER also shoe was complaining of lower extremity swelling patient still complained of generalized weakness worsening gradually patient has history of severe aortic stenosis was deemed high risk for surgical intervention at the ER chest x-ray shows pulmonary edema versus pneumonia also creatinine was elevated has hyper glycemia patient admitted to [facility] for further evaluation of treatment of probabl
[2021-06-23 16:33] LABS: Glucose Point of Care 229 mg/dl (65-105)
[2021-06-23 18:42] LABS: Glucose Point of Care 294 mg/dl (65-105)
[2021-06-23] MEDS: INSULIN ASPART (*BKC) 100 UNITS/ML SUB-Q ×2 (18:48→18:49)
[2021-06-23] MEDS: ATORVASTATIN 40 MG TABLET PO (18:50)
[2021-06-23] MEDS: INSULIN GLARGINE (*BKC) 100 UNITS/ML 10 UNITS SUB-Q (20:45)
[2021-06-23] MEDS: MIRTAZAPINE 15 MG TABLET PO (20:51)
[2021-06-23 20:59] LABS: Glucose Point of Care 261 mg/dl (65-105)
[2021-06-24] VITALS (11 sets, daily range): BP systolic 140–162; BP diastolic 52–61; PULSE 61–80; RESP 12–21; TEMP 36.1–36.8; O2SAT 96–100
[2021-06-24 00:18] LABS: Haptoglobin 40 mg/dL (43-212)
[2021-06-24] MEDS: hydrALAZINE HCL 25 MG TABLET PO ×3 (06:30→21:44)
[2021-06-24] MEDS: hydrALAZINE 12.5 MG TABLET PO ×3 (06:30→21:42)
[2021-06-24 07:41] LABS: Basophils Absolute Auto 0.1 K/mm3 (0.0-0.1); Basophils Percent Auto 0.9 % (0.2-1.2); Eosinophils Absolute Auto 1.2 K/mm3 (0-0.3); Eosinophils Percent Auto 17.9 % (0-4.4); Hematocrit 26.5 % (37.0-47.0); Hemoglobin 8.2 g/dL (12.0-15.0); Immature Granulocyte Absolute 0.02 K/mm3 (0.00-0.031); Immature Granulocyte Percent A 0.3 % (0-0.5); Lymphocytes Absolute Auto 1.05 K/mm3 (0.9-3.2); Lymphocytes Percent Auto 15.8 % (18.3-44.2); Mean Corpuscular HGB Conc 30.9 g/dl (32-36); Mean Corpuscular Hemoglobin 31.3 pg (26-34); Mean Corpuscular Volume 101.1 fl (80-100); Mean Platelet Volume 10.9 fl (7.4-10.4); Monocytes Percent Auto 15.2 % (2.6-8.5); Neutrophils Absolute Auto 3.3 K/mm3 (1.3-6.7); Neutrophils Percent Auto 49.9 % (45.5-73.1); Platelet Count Result 168 k/mm3 (150-375); Red Blood Count 2.62 M/mm3 (4.2-5.4); Red Cell Distribution Width 14.8 % (11.5-14.5); White Blood Count 6.6 K/mm3 (4.5-10.0)
[2021-06-24 07:51] LABS: Albumin Level 2.9 g/dL (3.5-5.1); Anion Gap 5 mmol/L (8-16); Blood Urea Nitrogen 48 mg/dL (7-17); Carbon Dioxide 27 mmol/L (22-30); Chloride 104 mmol/L (98-107); Estimated CRCL calculation 15 ml/min; Estimated Glomerular Filt Rate 17; Glucose 115 mg/dL (65-110); Phosphorus 4.4 mg/dL (2.5-4.5); Potassium 3.7 mmol/L (3.4-5.0); Sodium 136 mmol/L (137-145)
[2021-06-24 08:02] LABS: Glucose Point of Care 119 mg/dl (65-105)
[2021-06-24] MEDS: ACETAMINOPHEN 325 MG TABLET 650 MG PO (08:12)
[2021-06-24] MEDS: DOXYCYCLINE 100 MG/NS 100 ML 100 MG/100 ML BAG IVPB ×2 (08:14→21:42)
[2021-06-24] MEDS: PANTOPRAZOLE 40 MG TABLET PO (08:15)
[2021-06-24] MEDS: MULTIVITAMINS THERAPEUTIC TAB (*BKC) 1 TABLET PO (08:15)
[2021-06-24] MEDS: CHOLECALCIFEROL 1,000 UNITS TABLET 5000 UNITS PO (08:15)
[2021-06-24] MEDS: ISOSORBIDE DINITRATE 20 MG TABLET PO ×3 (08:15→16:01)
[2021-06-24] MEDS: FUROSEMIDE 40 MG TABLET PO (08:15)
[2021-06-24] MEDS: carvediloL 25 MG TABLET PO ×2 (08:16→21:42)
[2021-06-24] MEDS: TOLNAFTATE 1% POWDER 45 GM BTL 1 APPLIC TOPICAL ×3 (08:36→16:02)
[2021-06-24 11:41] LABS: Glucose Point of Care 112 mg/dl (65-105)
--- NOTE | 2021-06-24 13:01 | PM.PNNEP ---
Progress Note: A&P Assessment and Plan (1) GISELLE (acute kidney injury): Code(s): N17.9 - Acute kidney failure, unspecified Status: Acute Assessment and Plan: due to pneumonia or exacerbation of CHF or perhaps both follow renal function closely in the setting of diuresis creatine has fluctuated to extremes in the last few years cannot deny the possibility of kidney disease progression as well (2) Chronic kidney disease, stage IV (severe): Code(s): N18.4 - Chronic kidney disease, stage 4 (severe) Status: Chronic Assessment and Plan: baseline creatine averages around 2.0 - 2.7mg/dl thought to be secondary to her HTN, DM, cardiac/vascular disease and need for diuretics to maintain her volume status noted fluctuations in kidney function due to fluid status and diuretics (3) Acute and chronic respiratory failure with hypoxia: Code(s): J96.21 - Acute and chronic respiratory failure with hypoxia Status: Acute Assessment and Plan: presumably due to pneumonia and heart failure follow respiratory status with current treatments (4) Acute on chronic diastolic heart failure: Code(s): I50.33 - Acute on chronic diastolic (congestive) heart failure Status: Acute Assessment and Plan: suspected based on CXR findings back on IV diuretics - careful with use given valvular heart disease follow daily weights, I/Os, and respiratory status (5) Anemia: Code(s): D64.9 - Anemia, unspecified Status: Chronic Assessment and Plan: likely due to CKD as well as acute illness likely dose with Epogen during this hospital stay follow H/H (6) Hypertension: Code(s): I10 - Essential (primary) hypertension Status: Chronic Assessment and Plan: reasonable control follow trend of hemodynamics (7) Diabetes: Qualifiers: Diabetes mellitus complication status: with other specified complication Diabetes mellitus half-way insulin use: with joint terminal attack controller use Diabetes mellitus type: type 2 Qualified Code(s): E11.69 - Type 2 diabetes mellitus with other specified complication; Z79.4 - detention (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 Subjective Date/time seen: 06/24/21 13:01 Appears to be making slow improvement with current interventions (IV antibiotics, IV diuretics...etc); renal function stable if not improving despite IV diuretics/diuresis; no apparent distress noted at the time of my visit; no issues/events overnight or earlier this AM. Exam Narrative: General: ill appearing female in NAD Heart: normal S1 and S2; no rub Lungs: coarse and decreased at bases Abdomen: soft, nontender, nondistended, positive bowel sounds Extremities: no cyanosis or clubbing; trace - 1+ edema Skin: no nodules Objective Data Vital Signs Vital Signs: Vital Signs Temp Pulse Resp BP Pulse Ox 06/24/21 12:00 36.4 C 61 20 140/58 L 96 06/24/21 09:51 97 06/24/21 08:16 80 06/24/21 08:00 36.6 C 71 20 145/56 H 97 06/24/21 04:00 36.1 C L 66 21 H 148/53 H 100 06/24/21 03:22 65 12 97 06/24/21 00:00 36.2 C L 66 20 151/58 H 98 06/23/21 22:34 72 20 96 06/23/21 20:50 75 06/23/21 20:00 37.5 C 75 20 159/62 H 98 06/23/21 19:48 77 98 Intake/Output Intake/Output: Intake & Output 06/21/21 06/22/21 06/23/21 06/24/21 23:59 23:59 23:59 23:59 Intake Total 1324 1130 1330 1110 Output Total 200 Balance 1124 1130 1330 1110 Meds/Results Medications: Active Medications Generic Name Dose Route Start Last Admin Trade Name Kadie PRN Reason Stop Dose Admin Acetaminophen 650 mg 06/20/21 09:11 06/24/21 08:12 Acetaminophen 325 Mg Tablet PO 650 mg Q4H PRN Administration Mild
--- NOTE | 2021-06-24 13:01 | P.PNNP_ITS ---
Progress Note: A&P Assessment and Plan (1) GISELLE (acute kidney injury): Code(s): N17.9 - Acute kidney failure, unspecified Status: Acute Assessment and Plan: * due to pneumonia or exacerbation of CHF or perhaps both * follow renal function closely in the setting of diuresis * creatine has fluctuated to extremes in the last few years * cannot deny the possibility of kidney disease progression as well (2) Chronic kidney disease, stage IV (severe): Code(s): N18.4 - Chronic kidney disease, stage 4 (severe) Status: Chronic Assessment and Plan: * baseline creatine averages around 2.0 - 2.7mg/dl * thought to be secondary to her HTN, DM, cardiac/vascular disease and need for diuretics to maintain her volume status * noted fluctuations in kidney function due to fluid status and diuretics (3) Acute and chronic respiratory failure with hypoxia: Code(s): J96.21 - Acute and chronic respiratory failure with hypoxia Status: Acute Assessment and Plan: * presumably due to pneumonia and heart failure * follow respiratory status with current treatments (4) Acute on chronic diastolic heart failure: Code(s): I50.33 - Acute on chronic diastolic (congestive) heart failure Status: Acute Assessment and Plan: * suspected based on CXR findings * back on IV diuretics - careful with use given valvular heart disease * follow daily weights, I/Os, and respiratory status (5) Anemia: Code(s): D64.9 - Anemia, unspecified Status: Chronic Assessment and Plan: * likely due to CKD as well as acute illness * likely dose with Epogen during this hospital stay * follow H/H (6) Hypertension: Code(s): I10 - Essential (primary) hypertension Status: Chronic Assessment and Plan: * reasonable control * follow trend of hemodynamics (7) Diabetes: Qualifiers: Diabetes mellitus complication status: with other specified complication 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 Subjective Date/time seen: 06/24/21 13:01 Appears to be making slow improvement with current interventions (IV antibiotics, IV diuretics...etc); renal function stable if not improving despite IV diuretics/diuresis; no apparent distress noted at the time of my visit; no issues/events overnight or earlier this AM. Exam Narrative: General: ill appearing female in NAD Heart: normal S1 and S2; no rub Lungs: coarse and decreased at bases Abdomen: soft, nontender, nondistended, positive bowel sounds Extremities: no cyanosis or clubbing; trace - 1+ edema Skin: no nodules Objective Data Vital Signs Vital Signs: Vital Signs Temp Pulse Resp BP Pulse Ox 06/24/21 12:00 36.4 C 61 20 140/58 L 96 06/24/21 09:51 97 06/24/21 08:16 80 06/24/21 08:00 36.6 C 71 20 145/56 H 97 06/24/21 04:00 36.1 C L 66 21 H 148/53 H 100 06/24/21 03:22 65 12 97 06/24/21 00:00 36.2 C L 66 20 151/58 H 98 06/23/21 22:34 72 20 96
[2021-06-24] MEDS: metroNIDAZOLE 500 MG/ISO 100ML 500 MG/100 ML BAG 100 MG IVPB ×2 (13:10→17:30)
[2021-06-24 16:45] LABS: Glucose Point of Care 190 mg/dl (65-105)
[2021-06-24] MEDS: INSULIN ASPART (*BKC) 100 UNITS/ML SUB-Q (17:25)
[2021-06-24] MEDS: ATORVASTATIN 40 MG TABLET PO (17:28)
[2021-06-24] MEDS: INSULIN GLARGINE (*BKC) 100 UNITS/ML 10 UNITS SUB-Q (21:36)
[2021-06-24] MEDS: MIRTAZAPINE 15 MG TABLET PO (21:42)
[2021-06-24 22:14] LABS: Glucose Point of Care 194 mg/dl (65-105)
[2021-06-25] VITALS (15 sets, daily range): BP systolic 124–166; BP diastolic 52–60; PULSE 60–75; RESP 16–21; TEMP 36.2–36.9; O2SAT 95–100
[2021-06-25] MEDS: metroNIDAZOLE 500 MG/ISO 100ML 500 MG/100 ML BAG 100 MG IVPB ×5 (00:07→23:59)
[2021-06-25] MEDS: ACETAMINOPHEN 325 MG TABLET 650 MG PO (05:09)
[2021-06-25] MEDS: DEXTROSE 50% 25 GM/50 ML SYRINGE IV PUSH ×2 (05:23→11:22)
--- NOTE | 2021-06-25 05:27 | PC.NURSE ---
PT STATED SHE FELT HOT AND WANTED HER BLOOD SUGAR TAKEN. PT BLOOD SUGAR WAS IN THE 40'S GAVE PT ORANGE JUICE AND SHERBERT ICE CREAM UPON REQUEST FOR A SNACK. INFORMED THE PT SHE NEEDED MORE THAN A SNACK TO GET HER SUGAR BACK UP. GAVE 25ML DEXTROSE SYRINGE AND WILL REASSESS PT BLOOD SUGAR.
[2021-06-25 06:01] LABS: Basophils Absolute Auto 0.1 K/mm3 (0.0-0.1); Basophils Percent Auto 0.9 % (0.2-1.2); Eosinophils Absolute Auto 1.3 K/mm3 (0-0.3); Eosinophils Percent Auto 18.6 % (0-4.4); Hematocrit 25.6 % (37.0-47.0); Immature Granulocyte Absolute 0.02 K/mm3 (0.00-0.031); Immature Granulocyte Percent A 0.3 % (0-0.5); Lymphocytes Absolute Auto 0.98 K/mm3 (0.9-3.2); Lymphocytes Percent Auto 14.1 % (18.3-44.2); Mean Corpuscular HGB Conc 31.3 g/dl (32-36); Mean Corpuscular Hemoglobin 31.5 pg (26-34); Mean Corpuscular Volume 100.8 fl (80-100); Mean Platelet Volume 11.3 fl (7.4-10.4); Neutrophils Absolute Auto 3.5 K/mm3 (1.3-6.7); Neutrophils Percent Auto 51.1 % (45.5-73.1); Platelet Count Result 167 k/mm3 (150-375); Red Blood Count 2.54 M/mm3 (4.2-5.4); Red Cell Distribution Width 14.6 % (11.5-14.5); White Blood Count 6.9 K/mm3 (4.5-10.0)
[2021-06-25] MEDS: hydrALAZINE 12.5 MG TABLET PO ×3 (06:10→21:20)
[2021-06-25] MEDS: hydrALAZINE HCL 25 MG TABLET PO ×3 (06:10→21:20)
[2021-06-25 06:15] LABS: Glucose Point of Care 43 mg/dl (65-105)
[2021-06-25 06:15] LABS: Glucose Point of Care 86 mg/dl (65-105)
[2021-06-25 06:15] LABS: Glucose Point of Care 46 mg/dl (65-105)
[2021-06-25 06:15] LABS: Albumin Level 2.8 g/dL (3.5-5.1); Anion Gap 8 mmol/L (8-16); Blood Urea Nitrogen 49 mg/dL (7-17); Calcium 8.1 mg/dL (8.4-10.2); Carbon Dioxide 25 mmol/L (22-30); Chloride 102 mmol/L (98-107); Estimated CRCL calculation 17 ml/min; Estimated Glomerular Filt Rate 19; Glucose 97 mg/dL (65-110); Phosphorus 4.7 mg/dL (2.5-4.5); Potassium 3.5 mmol/L (3.4-5.0); Sodium 135 mmol/L (137-145)
[2021-06-25 07:49] LABS: Glucose Point of Care 48 mg/dl (65-105)
[2021-06-25] MEDS: BUMETANIDE INJ 1 MG/4 ML VIAL IV PUSH (08:16)
[2021-06-25] MEDS: cefTRIAXone 2 GM in SODIUM CHLORIDE 0.9% IV 100 ML 200 ML IVPB (08:16)
[2021-06-25] MEDS: ISOSORBIDE DINITRATE 20 MG TABLET PO ×3 (08:17→17:18)
[2021-06-25] MEDS: CHOLECALCIFEROL 1,000 UNITS TABLET 5000 UNITS PO (08:17)
[2021-06-25] MEDS: carvediloL 25 MG TABLET PO ×2 (08:17→21:20)
[2021-06-25] MEDS: PANTOPRAZOLE 40 MG TABLET PO (08:17)
[2021-06-25] MEDS: MULTIVITAMINS THERAPEUTIC TAB (*BKC) 1 TABLET PO (08:17)
[2021-06-25 08:21] LABS: Glucose Point of Care 67 mg/dl (65-105)
--- NOTE | 2021-06-25 08:45 | PC.NURSE ---
Dr Canada on floor and notified of glucose 48 this am. Patient ate breakfast and recheck is 74. Will monitor
--- NOTE | 2021-06-25 08:48 | PCPTNOTE ---
Attempted to see patient for PT at this time, patient asked if therapy can wait a little bit?
[2021-06-25] MEDS: POTASSIUM CHLORIDE 20 MEQ TABLET 40 MEQ PO (09:36)
[2021-06-25] MEDS: DOXYCYCLINE 100 MG/NS 100 ML 100 MG/100 ML BAG IVPB ×2 (09:36→21:20)
[2021-06-25 09:37] LABS: Glucose Point of Care 74 mg/dl (65-105)
[2021-06-25 09:37] LABS: Glucose Point of Care 88 mg/dl (65-105)
[2021-06-25] MEDS: TOLNAFTATE 1% POWDER 45 GM BTL 1 APPLIC TOPICAL ×3 (09:37→17:18)
[2021-06-25] MEDS: EPOETIN ALFA-EPBX 20,000 UNITS/ML VIAL 20000 UNITS SUB-Q (09:37)
--- NOTE | 2021-06-25 10:00 | PCOTNOTE ---
Attempted to see patient this am, however patient declined stating, They said I could sleep in a little bit more. We're having trouble with my blood sugar.
[2021-06-25 11:27] LABS: Glucose Point of Care 74 mg/dl (65-105)
[2021-06-25 12:27] LABS: Glucose Point of Care 79 mg/dl (65-105)
[2021-06-25 12:27] LABS: Glucose Point of Care 107 mg/dl (65-105)
--- NOTE | 2021-06-25 12:48 | P.PNNP_ITS ---
Progress Note: A&P Assessment and Plan (1) GISELLE (acute kidney injury): Code(s): N17.9 - Acute kidney failure, unspecified Status: Acute Assessment and Plan: * improving at this time * due to pneumonia or exacerbation of CHF or perhaps both * follow renal function closely in the setting of diuresis (component of renal venous hypertension?) * creatine has fluctuated to extremes in the last few years (2) Chronic kidney disease, stage IV (severe): Code(s): N18.4 - Chronic kidney disease, stage 4 (severe) Status: Chronic Assessment and Plan: * baseline creatine averages around 2.0 - 2.7mg/dl * thought to be secondary to her HTN, DM, cardiac/vascular disease and need for diuretics to maintain her volume status * noted fluctuations in kidney function due to fluid status and diuretics (3) Acute and chronic respiratory failure with hypoxia: Code(s): J96.21 - Acute and chronic respiratory failure with hypoxia Status: Acute Assessment and Plan: * presumably due to pneumonia and heart failure * follow respiratory status with current treatments (4) Acute on chronic diastolic heart failure: Code(s): I50.33 - Acute on chronic diastolic (congestive) heart failure Status: Acute Assessment and Plan: * suspected based on CXR findings * back on IV diuretics - careful with use given valvular heart disease * follow daily weights, I/Os, and respiratory status (5) Anemia: Code(s): D64.9 - Anemia, unspecified Status: Chronic Assessment and Plan: * likely due to CKD as well as acute illness * likely dose with Epogen during this hospital stay * follow H/H (6) Hypertension: Code(s): I10 - Essential (primary) hypertension Status: Chronic Assessment and Plan: * reasonable control * follow trend of hemodynamics (7) Diabetes: Qualifiers: Diabetes mellitus complication status: with other specified complication Diabetes mellitus half-way insulin use: with half-way use Diabetes mellitus type: type 2 Qualified Code(s): E11.69 - Type 2 diabetes mellitus with other specified complication; Z79.4 - keno terminal operator (current) use of insulin Code(s): E11.9 - Type 2 diabetes mellitus without complications Status: Chronic Assessment and Plan: * follow accuchecks * on Lantus and SSI Will continue to follow. Subjective Date/time seen: 06/25/21 12:48 No acute issues or concerns voiced at this time; slow and steady improvement noted in respiratory status/breathing as well as just feeling better in general; no issues or problems overnight or earlier this morning. Exam Narrative: General: somewhat ill appearing female in NAD Heart: normal S1 and S2; no rub Lungs: coarse and decreased at bases Abdomen: soft, nontender, nondistended, positive bowel sounds Extremities: no cyanosis or clubbing; trace - 1+ edema Skin: no nodules Objective Data Vital Signs Vital Signs: Vital Signs Temp Pulse Resp BP Pulse Ox 06/25/21 12:00 65 06/25/21 08:17 64 06/25/21 08:00 36.7 C 60 20 147/58 H 99 06/25/21 06:47 36.6 C 66 21 H 141/56 H 100 06/25/21 04:21 20 95 06/25/21 04:00 64 06/25/21 00:36 16 95 06/25/21 00:00 36.2 C L 65 20 124/52 L 99 06/24/21 22:48 19 96 06/24/21 21:42
--- NOTE | 2021-06-25 12:48 | PM.PNNEP ---
Progress Note: A&P Assessment and Plan (1) GISELLE (acute kidney injury): Code(s): N17.9 - Acute kidney failure, unspecified Status: Acute Assessment and Plan: improving at this time due to pneumonia or exacerbation of CHF or perhaps both follow renal function closely in the setting of diuresis (component of renal venous hypertension?) creatine has fluctuated to extremes in the last few years (2) Chronic kidney disease, stage IV (severe): Code(s): N18.4 - Chronic kidney disease, stage 4 (severe) Status: Chronic Assessment and Plan: baseline creatine averages around 2.0 - 2.7mg/dl thought to be secondary to her HTN, DM, cardiac/vascular disease and need for diuretics to maintain her volume status noted fluctuations in kidney function due to fluid status and diuretics (3) Acute and chronic respiratory failure with hypoxia: Code(s): J96.21 - Acute and chronic respiratory failure with hypoxia Status: Acute Assessment and Plan: presumably due to pneumonia and heart failure follow respiratory status with current treatments (4) Acute on chronic diastolic heart failure: Code(s): I50.33 - Acute on chronic diastolic (congestive) heart failure Status: Acute Assessment and Plan: suspected based on CXR findings back on IV diuretics - careful with use given valvular heart disease follow daily weights, I/Os, and respiratory status (5) Anemia: Code(s): D64.9 - Anemia, unspecified Status: Chronic Assessment and Plan: likely due to CKD as well as acute illness likely dose with Epogen during this hospital stay follow H/H (6) Hypertension: Code(s): I10 - Essential (primary) hypertension Status: Chronic Assessment and Plan: reasonable control follow trend of hemodynamics (7) Diabetes: Qualifiers: Diabetes mellitus complication status: with other specified complication 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 Subjective Date/time seen: 06/25/21 12:48 No acute issues or concerns voiced at this time; slow and steady improvement noted in respiratory status/breathing as well as just feeling better in general; no issues or problems overnight or earlier this morning. Exam Narrative: General: somewhat ill appearing female in NAD Heart: normal S1 and S2; no rub Lungs: coarse and decreased at bases Abdomen: soft, nontender, nondistended, positive bowel sounds Extremities: no cyanosis or clubbing; trace - 1+ edema Skin: no nodules Objective Data Vital Signs Vital Signs: Vital Signs Temp Pulse Resp BP Pulse Ox 06/25/21 12:00 65 06/25/21 08:17 64 06/25/21 08:00 36.7 C 60 20 147/58 H 99 06/25/21 06:47 36.6 C 66 21 H 141/56 H 100 06/25/21 04:21 20 95 06/25/21 04:00 64 06/25/21 00:36 16 95 06/25/21 00:00 36.2 C L 65 20 124/52 L 99 06/24/21 22:48 19 96 06/24/21 21:42 66 06/24/21 20:00 36.6 C 69 21 H 153/61 H 100 Intake/Output Intake/Output: Intake & Output 06/22/21 06/23/21 06/24/21 06/25/21 23:59 23:59 23:59 23:59 Intake Total 1130 1330 1830 1340 Balance 1130 1330 1830 1340 Meds/Results Medications: Active Medications Generic Name Dose Route Start Last Admin Trade Name Freq PRN Reason Stop Dose Admin Acetaminophen 650 mg 06/20/21 09:11 06/25/21 05:09 Acetaminophen 325 Mg Tablet PO 650 mg Q4H PRN Administration Mild Pain (1-3) or Fever Al Hydrox/Mg Hydrox/Simethicone 30 ml 06/20/21 09:11 Mag Hydrox/
[2021-06-25 16:05] LABS: Glucose Point of Care 126 mg/dl (65-105)
--- NOTE | 2021-06-25 16:06 | PC.NURSE ---
Dr Canada aware of holding scheduled novolog before meals today due to glucose low
[2021-06-25] MEDS: ATORVASTATIN 40 MG TABLET PO (17:17)
[2021-06-25] MEDS: MIRTAZAPINE 15 MG TABLET PO (21:20)
[2021-06-25] MEDS: INSULIN GLARGINE (*BKC) 100 UNITS/ML 10 UNITS SUB-Q (21:25)
[2021-06-25 21:32] LABS: Glucose Point of Care 212 mg/dl (65-105)
[2021-06-26] VITALS (18 sets, daily range): BP systolic 111–152; BP diastolic 42–62; PULSE 71–78; RESP 14–20; TEMP 36.4–37.6; O2SAT 95–100
[2021-06-26 05:29] LABS: Basophils Absolute Auto 0.1 K/mm3 (0.0-0.1); Basophils Percent Auto 0.8 % (0.2-1.2); Eosinophils Absolute Auto 1.2 K/mm3 (0-0.3); Eosinophils Percent Auto 18.5 % (0-4.4); Hematocrit 22.4 % (37.0-47.0); Immature Granulocyte Absolute 0.03 K/mm3 (0.00-0.031); Immature Granulocyte Percent A 0.5 % (0-0.5); Lymphocytes Absolute Auto 0.97 K/mm3 (0.9-3.2); Lymphocytes Percent Auto 15.6 % (18.3-44.2); Mean Corpuscular HGB Conc 30.8 g/dl (32-36); Mean Corpuscular Hemoglobin 31.2 pg (26-34); Mean Corpuscular Volume 101.4 fl (80-100); Mean Platelet Volume 11.4 fl (7.4-10.4); Monocytes Percent Auto 16.1 % (2.6-8.5); Neutrophils Percent Auto 48.5 % (45.5-73.1); Platelet Count Result 145 k/mm3 (150-375); Red Blood Count 2.21 M/mm3 (4.2-5.4); Red Cell Distribution Width 14.8 % (11.5-14.5); White Blood Count 6.2 K/mm3 (4.5-10.0)
[2021-06-26 05:30] LABS: Hemoglobin 6.9 g/dL (12.0-15.0)
[2021-06-26] MEDS: metroNIDAZOLE 500 MG/ISO 100ML 500 MG/100 ML BAG 100 MG IVPB ×3 (05:45→17:05)
[2021-06-26 05:47] LABS: Albumin Level 2.6 g/dL (3.5-5.1); Anion Gap 6 mmol/L (8-16); Blood Urea Nitrogen 50 mg/dL (7-17); Calcium 7.9 mg/dL (8.4-10.2); Carbon Dioxide 26 mmol/L (22-30); Chloride 104 mmol/L (98-107); Estimated CRCL calculation 17 ml/min; Estimated Glomerular Filt Rate 19; Glucose 121 mg/dL (65-110); Phosphorus 4.7 mg/dL (2.5-4.5); Potassium 4.5 mmol/L (3.4-5.0); Sodium 136 mmol/L (137-145)
[2021-06-26] MEDS: hydrALAZINE HCL 25 MG TABLET PO ×3 (05:59→21:13)
[2021-06-26] MEDS: hydrALAZINE 12.5 MG TABLET PO ×3 (05:59→21:13)
[2021-06-26 08:16] LABS: Glucose Point of Care 61 mg/dl (65-105)
[2021-06-26] MEDS: GLUCOSE ORAL GEL 15 GM OF GLUCSE IN 37.5 GM TUBE PO ×2 (08:19→08:48)
[2021-06-26] MEDS: cefTRIAXone 2 GM in SODIUM CHLORIDE 0.9% IV 100 ML 150 ML IVPB (08:25)
[2021-06-26] MEDS: TOLNAFTATE 1% POWDER 45 GM BTL 1 APPLIC TOPICAL ×3 (08:29→17:05)
[2021-06-26 08:48] LABS: Glucose Point of Care 67 mg/dl (65-105)
[2021-06-26 09:11] LABS: Glucose Point of Care 85 mg/dl (65-105)
[2021-06-26] MEDS: SODIUM CHLORIDE 0.9% IV 250 ML 30 ML IV CONT (09:18)
[2021-06-26] MEDS: MULTIVITAMINS THERAPEUTIC TAB (*BKC) 1 TABLET PO (09:30)
[2021-06-26] MEDS: carvediloL 25 MG TABLET PO ×2 (09:30→21:13)
[2021-06-26] MEDS: CHOLECALCIFEROL 1,000 UNITS TABLET 5000 UNITS PO (09:30)
[2021-06-26] MEDS: BUMETANIDE INJ 1 MG/4 ML VIAL IV PUSH (09:30)
[2021-06-26] MEDS: DOXYCYCLINE 100 MG/NS 100 ML 100 MG/100 ML BAG IVPB ×2 (09:31→20:09)
[2021-06-26] MEDS: ISOSORBIDE DINITRATE 20 MG TABLET PO ×3 (09:31→17:03)
[2021-06-26] MEDS: PANTOPRAZOLE 40 MG TABLET PO (09:31)
--- NOTE | 2021-06-26 10:04 | PCPTNOTE ---
Attempted to see patient for PT at this time, however unable due to patient receiving blood transfusion.
--- NOTE | 2021-06-26 11:49 | P.PNNP_ITS ---
Progress Note: A&P Assessment and Plan (1) GISELLE (acute kidney injury): Code(s): N17.9 - Acute kidney failure, unspecified Status: Acute Assessment and Plan: * improving at this time * due to pneumonia or exacerbation of CHF or perhaps both * follow renal function closely in the setting of diuresis (component of renal venous hypertension?) * creatine has fluctuated to extremes in the last few years (2) Chronic kidney disease, stage IV (severe): Code(s): N18.4 - Chronic kidney disease, stage 4 (severe) Status: Chronic Assessment and Plan: * baseline creatine averages around 2.0 - 2.7mg/dl * thought to be secondary to her HTN, DM, cardiac/vascular disease and need for diuretics to maintain her volume status * noted fluctuations in kidney function due to fluid status and diuretics (3) Acute and chronic respiratory failure with hypoxia: Code(s): J96.21 - Acute and chronic respiratory failure with hypoxia Status: Acute Assessment and Plan: * presumably due to pneumonia and heart failure * follow respiratory status with current treatments (4) Acute on chronic diastolic heart failure: Code(s): I50.33 - Acute on chronic diastolic (congestive) heart failure Status: Acute Assessment and Plan: * suspected based on CXR findings * back on IV diuretics - careful with use given valvular heart disease * follow daily weights, I/Os, and respiratory status (5) Anemia: Code(s): D64.9 - Anemia, unspecified Status: Chronic Assessment and Plan: * likely due to CKD as well as acute illness * dose with Epogen during this hospital stay * PRBC transfusion today * follow H/H (6) Hypertension: Code(s): I10 - Essential (primary) hypertension Status: Chronic Assessment and Plan: * reasonable control * follow trend of hemodynamics (7) Diabetes: Qualifiers: Diabetes mellitus complication status: with other specified complication 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 Subjective Date/time seen: 06/26/21 11:49 Still feels somewhat weak but she wonders if her low H/H this AM may be the reason for this symptom; no other acute issues or problems to report; respiratory status seems stable if not a tad better; no other events overnight or earlier this AM. Exam Narrative: General: somewhat ill appearing female in NAD Heart: normal S1 and S2; no rub Lungs: coarse and decreased at bases Abdomen: soft, nontender, nondistended, positive bowel sounds Extremities: no cyanosis or clubbing; trace - 1+ edema Skin: no nodules Objective Data Vital Signs Vital Signs: Vital Signs Temp Pulse Resp BP Pulse Ox 06/26/21 09:44 36.7 C 78 16 138/52 L 100 06/26/21 09:30 78 06/26/21 09:28 36.4 C 78 16 141/47 H 99 06/26/21 08:50 96 06/26/21 08:45 73 100 06/26/21 04:00 36.8 C 72 18 127/45 L 95 06/26/21 02:36 14 97 06/26/21 00:00 36.7 C 74 20 111/42 L 98
--- NOTE | 2021-06-26 11:49 | PM.PNNEP ---
Progress Note: A&P Assessment and Plan (1) GISELLE (acute kidney injury): Code(s): N17.9 - Acute kidney failure, unspecified Status: Acute Assessment and Plan: improving at this time due to pneumonia or exacerbation of CHF or perhaps both follow renal function closely in the setting of diuresis (component of renal venous hypertension?) creatine has fluctuated to extremes in the last few years (2) Chronic kidney disease, stage IV (severe): Code(s): N18.4 - Chronic kidney disease, stage 4 (severe) Status: Chronic Assessment and Plan: baseline creatine averages around 2.0 - 2.7mg/dl thought to be secondary to her HTN, DM, cardiac/vascular disease and need for diuretics to maintain her volume status noted fluctuations in kidney function due to fluid status and diuretics (3) Acute and chronic respiratory failure with hypoxia: Code(s): J96.21 - Acute and chronic respiratory failure with hypoxia Status: Acute Assessment and Plan: presumably due to pneumonia and heart failure follow respiratory status with current treatments (4) Acute on chronic diastolic heart failure: Code(s): I50.33 - Acute on chronic diastolic (congestive) heart failure Status: Acute Assessment and Plan: suspected based on CXR findings back on IV diuretics - careful with use given valvular heart disease follow daily weights, I/Os, and respiratory status (5) Anemia: Code(s): D64.9 - Anemia, unspecified Status: Chronic Assessment and Plan: likely due to CKD as well as acute illness dose with Epogen during this hospital stay PRBC transfusion today follow H/H (6) Hypertension: Code(s): I10 - Essential (primary) hypertension Status: Chronic Assessment and Plan: reasonable control follow trend of hemodynamics (7) Diabetes: Qualifiers: Diabetes mellitus complication status: with other specified complication Diabetes mellitus 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 Subjective Date/time seen: 06/26/21 11:49 Still feels somewhat weak but she wonders if her low H/H this AM may be the reason for this symptom; no other acute issues or problems to report; respiratory status seems stable if not a tad better; no other events overnight or earlier this AM. Exam Narrative: General: somewhat ill appearing female in NAD Heart: normal S1 and S2; no rub Lungs: coarse and decreased at bases Abdomen: soft, nontender, nondistended, positive bowel sounds Extremities: no cyanosis or clubbing; trace - 1+ edema Skin: no nodules Objective Data Vital Signs Vital Signs: Vital Signs Temp Pulse Resp BP Pulse Ox 06/26/21 09:44 36.7 C 78 16 138/52 L 100 06/26/21 09:30 78 06/26/21 09:28 36.4 C 78 16 141/47 H 99 06/26/21 08:50 96 06/26/21 08:45 73 100 06/26/21 04:00 36.8 C 72 18 127/45 L 95 06/26/21 02:36 14 97 06/26/21 00:00 36.7 C 74 20 111/42 L 98 06/25/21 23:06 18 96 06/25/21 21:42 96 06/25/21 21:20 75 06/25/21 20:00 36.4 C 70 21 H 166/53 H 96 06/25/21 16:00 36.9 C 66 20 142/56 H 100 06/25/21 15:41 97 06/25/21 12:59 140/60 06/25/21 12:00 65 Intake/Output Intake/Output: Intake & Output 06/23/21 06/24/21 06/25/21 06/26/21 23:59 23:59 23:59 23:59 Intake Total 1330 1830 1740 710 Balance 1330 1830 1740 710 Meds/Results Medications: Active Medications Generic Name Dose Route Start Last Admin Trade Name Freq PRN Reason Stop Dose Admin Acetaminophen
--- NOTE | 2021-06-26 13:28 | WPDGICN ---
Assessment and Plan Assessment and plan (1) Anemia in chronic illness: Code(s): D63.8 - Anemia in other chronic diseases classified elsewhere Status: Acute Assessment and Plan: Patient with anemia. Appears to be from chronic illness. Patient has both chronic kidney disease and severe heart disease. No evidence of GI blood loss. She does have some bruises which could contribute to her anemia. At the present time no indication for GI evaluation. Consider hematology. Patient may benefit from Procrit if anemia progresses. Stool has been heme negative with no indication of GI blood loss. (2) Insulin dependent diabetes mellitus: Status: Chronic (3) Acute hyperglycemia: Code(s): R73.9 - Hyperglycemia, unspecified Status: Acute (4) Severe aortic stenosis: Code(s): I35.0 - Nonrheumatic aortic (valve) stenosis Status: Acute (5) CKD (chronic kidney disease): Qualifiers: Chronic kidney disease stage: unspecified stage Qualified Code(s): N18.9 - Chronic kidney disease, unspecified Code(s): N18.9 - Chronic kidney disease, unspecified Status: Acute (6) CHF (congestive heart failure): Code(s): I50.9 - Heart failure, unspecified Status: Acute GI Consult Note Consult date/time: 06/26/21 13:28 HPI: Mine Dwyer is a 70 year old female I am asked to see for anemia at the request of the hospitalist service. Patient has a history of chronic respiratory failure requiring home oxygen, congestive heart failure, pneumonia, has a history of diabetes with recent DKA and hypotension. She is known to have valvular heart disease with severe aortic stenosis. Previously anticipated cardiac surgery but this was delayed because of recent COVID from which she has now recovered. She has been in multiple hospitals near over last several months. Patient currently is being treated for pulmonary hypertension acute hyperglycemia and chronic respiratory failure she has been on supplemental oxygen. Patient denies any obvious signs of bleeding. Her hemoglobin has consistently been low. Her MCV is high. Stool Hemoccult has been documented to be negative. Patient denies any nose bleeds. She does have some bruises on her arm. Patient has had previous screening colonoscopy 2012 revealed diverticular disease and hemorrhoids. Review of Systems Review of Systems: All systems reviewed & are unremarkable except as noted in HPI and below [facility] Past Medical History Medical History Aortic valve stenosis moderate to severe noted on cardiac catheterization December 2019 Carotid stenosis (12/2018) bilateral carotid stenosis 50-69% Chronic anemia anemia of chronic disease Chronic kidney disease, stage IV (severe) Colon polyps Colonoscopy in August 2017 showing internal hemorrhoids. Diastolic congestive heart failure due to valvular disease grade 2 diastolic dysfunction, normal EF of 50%, severe left atrial enlargement, mild to moderate mitral valve regurgitation, [id number] tricuspid valve regurgitation Hand fracture History of angiography Right leg Without intervention Hyperlipidemia Hypertension Lymphedema bilateral lower extremities left greater than right Mitral valve prolapse Obstructive sleep apnea on CPAP Osteoporosis Post-menopausal Retinopathy Severe pulmonary hypertension noted on echocardiogram 11/2019 with RVSP of 75 Type 2 diabetes mellitus with insulin therapy Surgical History Surgical History H/O cardiac catheterization (12/2019) mild coronary artery disease, moderate to severe aortic valve stenosis History of bilateral tubal ligation S/P cataract surgery bilateral 10/2019 Status post laser cataract surgery of both eyes Family History Family History Marlonjodi
[2021-06-26 13:38] LABS: Glucose Point of Care 107 mg/dl (65-105)
--- NOTE | 2021-06-26 14:11 | PCOTNOTE ---
Attempted to see patient this pm, however patient declined activity out of bed. Encouraged patient to participate in ADLs edge of bed, however patient declined stating , I just got warm and cozy in bed, and I get cold so easily. Pt not seen due to decreased motivation to participate.
--- NOTE | 2021-06-26 14:22 | PCPTNOTE ---
Patient refused treatment this session stating I would rather not do anything. Patient states she has not had a good day today. PT will continue to follow per plan of care.
[2021-06-26 16:38] LABS: Glucose Point of Care 74 mg/dl (65-105)
[2021-06-26] MEDS: ACETAMINOPHEN 325 MG TABLET 650 MG PO (17:03)
[2021-06-26] MEDS: ATORVASTATIN 40 MG TABLET PO (17:03)
[2021-06-26 18:38] LABS: Hematocrit 25.7 % (37.0-47.0); Hemoglobin 8.1 g/dL (12.0-15.0)
[2021-06-26 20:01] LABS: Glucose Point of Care 139 mg/dl (65-105)
[2021-06-26] MEDS: MIRTAZAPINE 15 MG TABLET PO (21:13)
[2021-06-27] VITALS (16 sets, daily range): BP systolic 103–167; BP diastolic 43–65; PULSE 65–78; RESP 16–20; TEMP 35.8–36.6; O2SAT 97–100
[2021-06-27] MEDS: metroNIDAZOLE 500 MG/ISO 100ML 500 MG/100 ML BAG 100 MG IVPB ×5 (00:29→23:58)
[2021-06-27 00:40] LABS: Glucose Point of Care 297 mg/dl (65-105)
[2021-06-27 01:23] LABS: Hematocrit 26.9 % (37.0-47.0); Hemoglobin 8.5 g/dL (12.0-15.0)
[2021-06-27] MEDS: ONDANSETRON INJ 4 MG/2 ML VIAL IV PUSH (06:11)
[2021-06-27 06:46] LABS: Basophils Absolute Auto 0.1 K/mm3 (0.0-0.1); Basophils Percent Auto 1.5 % (0.2-1.2); Eosinophils Absolute Auto 0.5 K/mm3 (0-0.3); Eosinophils Percent Auto 7.6 % (0-4.4); Hematocrit 32.4 % (37.0-47.0); Hemoglobin 9.3 g/dL (12.0-15.0); Immature Granulocyte Absolute 0.09 K/mm3 (0.00-0.031); Immature Granulocyte Percent A 1.4 % (0-0.5); Lymphocytes Absolute Auto 0.96 K/mm3 (0.9-3.2); Lymphocytes Percent Auto 14.6 % (18.3-44.2); Mean Corpuscular HGB Conc 28.7 g/dl (32-36); Mean Corpuscular Hemoglobin 30.5 pg (26-34); Mean Corpuscular Volume 106.2 fl (80-100); Mean Platelet Volume 11.7 fl (7.4-10.4); Monocytes Absolute Auto 0.6 K/mm3 (0.1-0.6); Neutrophils Absolute Auto 4.4 K/mm3 (1.3-6.7); Neutrophils Percent Auto 65.9 % (45.5-73.1); Platelet Count Result 143 k/mm3 (150-375); Red Blood Count 3.05 M/mm3 (4.2-5.4); Red Cell Distribution Width 15.9 % (11.5-14.5); White Blood Count 6.6 K/mm3 (4.5-10.0)
[2021-06-27] MEDS: ACETAMINOPHEN 325 MG TABLET 650 MG PO (06:48)
[2021-06-27] MEDS: hydrALAZINE HCL 25 MG TABLET PO ×3 (06:48→21:02)
[2021-06-27] MEDS: hydrALAZINE 12.5 MG TABLET PO ×3 (06:48→21:01)
[2021-06-27 07:00] LABS: Albumin Level 3.1 g/dL (3.5-5.1); Anion Gap 14 mmol/L (8-16); Blood Urea Nitrogen 53 mg/dL (7-17); Calcium 8.4 mg/dL (8.4-10.2); Carbon Dioxide 16 mmol/L (22-30); Chloride 105 mmol/L (98-107); Estimated CRCL calculation 15 ml/min; Estimated Glomerular Filt Rate 17; Glucose 393 mg/dL (65-110); Phosphorus 5.4 mg/dL (2.5-4.5); Potassium 5.3 mmol/L (3.4-5.0); Sodium 135 mmol/L (137-145)
[2021-06-27 07:50] LABS: Glucose Point of Care 403 mg/dl (65-105)
[2021-06-27 07:50] LABS: Glucose Point of Care 394 mg/dl (65-105)
[2021-06-27 07:52] LABS: Poikilocytosis 1+ (NORMAL)
[2021-06-27] MEDS: INSULIN ASPART (*BKC) 100 UNITS/ML SUB-Q ×5 (07:58→17:16)
[2021-06-27] MEDS: INSULIN GLARGINE (*BKC) 100 UNITS/ML SUB-Q (07:59)
[2021-06-27] MEDS: BUMETANIDE INJ 1 MG/4 ML VIAL IV PUSH (08:04)
[2021-06-27] MEDS: PANTOPRAZOLE 40 MG TABLET PO (08:05)
[2021-06-27] MEDS: MULTIVITAMINS THERAPEUTIC TAB (*BKC) 1 TABLET PO (08:05)
[2021-06-27] MEDS: carvediloL 25 MG TABLET PO ×2 (08:05→20:47)
[2021-06-27] MEDS: CHOLECALCIFEROL 1,000 UNITS TABLET 5000 UNITS PO (08:05)
[2021-06-27] MEDS: ISOSORBIDE DINITRATE 20 MG TABLET PO ×3 (08:05→17:05)
[2021-06-27] MEDS: TOLNAFTATE 1% POWDER 45 GM BTL 1 APPLIC TOPICAL ×3 (08:06→17:05)
[2021-06-27] MEDS: cefTRIAXone 2 GM in SODIUM CHLORIDE 0.9% IV 100 ML 200 ML IVPB (08:17)
[2021-06-27] MEDS: DOXYCYCLINE 100 MG/NS 100 ML 100 MG/100 ML BAG IVPB ×2 (08:17→20:48)
[2021-06-27 11:31] LABS: Glucose Point of Care 423 mg/dl (65-105)
--- NOTE | 2021-06-27 11:38 | P.PNNP_ITS ---
Progress Note: A&P Assessment and Plan (1) GISELLE (acute kidney injury): Code(s): N17.9 - Acute kidney failure, unspecified Status: Acute Assessment and Plan: * improving at this time * due to pneumonia or exacerbation of CHF or perhaps both * follow renal function closely in the setting of diuresis (component of renal venous hypertension?) * creatine has fluctuated to extremes in the last few years (2) Chronic kidney disease, stage IV (severe): Code(s): N18.4 - Chronic kidney disease, stage 4 (severe) Status: Chronic Assessment and Plan: * baseline creatine averages around 2.0 - 2.7mg/dl * thought to be secondary to her HTN, DM, cardiac/vascular disease and need for diuretics to maintain her volume status * noted fluctuations in kidney function due to fluid status and diuretics (3) Acute and chronic respiratory failure with hypoxia: Code(s): J96.21 - Acute and chronic respiratory failure with hypoxia Status: Acute Assessment and Plan: * presumably due to pneumonia and heart failure * follow respiratory status with current treatments * on antibioitcs for presumed pneumonia (4) Acute on chronic diastolic heart failure: Code(s): I50.33 - Acute on chronic diastolic (congestive) heart failure Status: Acute Assessment and Plan: * suspected based on CXR findings * back on IV diuretics - careful with use given valvular heart disease * follow daily weights, I/Os, and respiratory status (5) Anemia: Code(s): D64.9 - Anemia, unspecified Status: Chronic Assessment and Plan: * likely due to CKD as well as acute illness * dose with Epogen during this hospital stay * PRBC transfusion (on 06/26/21) * follow H/H (6) Hypertension: Code(s): I10 - Essential (primary) hypertension Status: Chronic Assessment and Plan: * reasonable control * follow trend of hemodynamics (7) Diabetes: Qualifiers: Diabetes mellitus complication status: with other specified complication Diabetes mellitus half-way insulin use: with long term care social worker use Diabetes mellitus type: type 2 Qualified Code(s): E11.69 - Type 2 diabetes mellitus with other specified complication; Z79.4 - equipment operator intermodal yard (current) use of insulin Code(s): E11.9 - Type 2 diabetes mellitus without complications Status: Chronic Assessment and Plan: * follow accuchecks * on Lantus and SSI Will continue to follow. Subjective Date/time seen: 06/27/21 11:38 Tolerated PRBC transfusion yesterday without any issue or problems; started on Epogen therapy; otherwise, feels reasonably well at the time of my visit; no other issues/events overnight or earlier this AM. Exam Narrative: General: somewhat ill appearing female in NAD Heart: normal S1 and S2; no rub Lungs: coarse and decreased at bases Abdomen: soft, nontender, nondistended, positive bowel sounds Extremities: no cyanosis or clubbing; trace - 1+ edema Skin: warm and dry Objective Data Vital Signs Vital Signs: Vital Signs Temp Pulse Resp BP Pulse Ox 06/27/21 08:05 76 06/27/21 08:00 36.6 C 76 20 103/43 L 97 06/27/21 04:00 36.3 C L 78 20 136/55 L 98 06/27/21 03:00 20 97 06/27/21 00:00 36.2 C L 73 20 130/61 98 06/26/21 21:50 20 97 06/26/21 21:13 75 06/26/21 20:00 36.7 C 76 18 148/54 H
--- NOTE | 2021-06-27 11:38 | PM.PNNEP ---
Progress Note: A&P Assessment and Plan (1) GISELLE (acute kidney injury): Code(s): N17.9 - Acute kidney failure, unspecified Status: Acute Assessment and Plan: improving at this time due to pneumonia or exacerbation of CHF or perhaps both follow renal function closely in the setting of diuresis (component of renal venous hypertension?) creatine has fluctuated to extremes in the last few years (2) Chronic kidney disease, stage IV (severe): Code(s): N18.4 - Chronic kidney disease, stage 4 (severe) Status: Chronic Assessment and Plan: baseline creatine averages around 2.0 - 2.7mg/dl thought to be secondary to her HTN, DM, cardiac/vascular disease and need for diuretics to maintain her volume status noted fluctuations in kidney function due to fluid status and diuretics (3) Acute and chronic respiratory failure with hypoxia: Code(s): J96.21 - Acute and chronic respiratory failure with hypoxia Status: Acute Assessment and Plan: presumably due to pneumonia and heart failure follow respiratory status with current treatments on antibioitcs for presumed pneumonia (4) Acute on chronic diastolic heart failure: Code(s): I50.33 - Acute on chronic diastolic (congestive) heart failure Status: Acute Assessment and Plan: suspected based on CXR findings back on IV diuretics - careful with use given valvular heart disease follow daily weights, I/Os, and respiratory status (5) Anemia: Code(s): D64.9 - Anemia, unspecified Status: Chronic Assessment and Plan: likely due to CKD as well as acute illness dose with Epogen during this hospital stay PRBC transfusion (on 06/26/21) follow H/H (6) Hypertension: Code(s): I10 - Essential (primary) hypertension Status: Chronic Assessment and Plan: reasonable control follow trend of hemodynamics (7) Diabetes: Qualifiers: Diabetes mellitus complication status: with other specified complication 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 Subjective Date/time seen: 06/27/21 11:38 Tolerated PRBC transfusion yesterday without any issue or problems; started on Epogen therapy; otherwise, feels reasonably well at the time of my visit; no other issues/events overnight or earlier this AM. Exam Narrative: General: somewhat ill appearing female in NAD Heart: normal S1 and S2; no rub Lungs: coarse and decreased at bases Abdomen: soft, nontender, nondistended, positive bowel sounds Extremities: no cyanosis or clubbing; trace - 1+ edema Skin: warm and dry Objective Data Vital Signs Vital Signs: Vital Signs Temp Pulse Resp BP Pulse Ox 06/27/21 08:05 76 06/27/21 08:00 36.6 C 76 20 103/43 L 97 06/27/21 04:00 36.3 C L 78 20 136/55 L 98 06/27/21 03:00 20 97 06/27/21 00:00 36.2 C L 73 20 130/61 98 06/26/21 21:50 20 97 06/26/21 21:13 75 06/26/21 20:00 36.7 C 76 18 148/54 H 97 06/26/21 18:30 36.7 C 74 20 145/60 H 100 06/26/21 16:00 76 06/26/21 15:10 36.6 C 73 14 148/51 H 100 Intake/Output Intake/Output: Intake & Output 06/24/21 06/25/21 06/26/21 06/27/21 23:59 23:59 23:59 23:59 Intake Total 1830 1740 1634 620 Balance 1830 1740 1634 620 Meds/Results Medications: Active Medications Generic Name Dose Route Start Last Admin Trade Name Kadie PRN Reason Stop Dose Admin Acetaminophen 650 mg 06/20/21 09:11 06/27/21 06:48 Acetaminophen 325 Mg Tablet PO 650 mg Q4H PRN Administration Mild Pain (
[2021-06-27 13:55] LABS: Glucose Point of Care 343 mg/dl (65-105)
[2021-06-27 16:53] LABS: Glucose Point of Care 276 mg/dl (65-105)
[2021-06-27] MEDS: EPOETIN ALFA-EPBX 10,000 UNITS/ML VIAL 10000 UNITS SUB-Q (17:04)
[2021-06-27] MEDS: ATORVASTATIN 40 MG TABLET PO (17:05)
[2021-06-27] MEDS: INSULIN GLARGINE (*BKC) 100 UNITS/ML 10 UNITS SUB-Q (20:48)
[2021-06-27] MEDS: MIRTAZAPINE 15 MG TABLET PO (20:49)
[2021-06-27 20:58] LABS: Glucose Point of Care 210 mg/dl (65-105)
[2021-06-28] VITALS (15 sets, daily range): BP systolic 131–161; BP diastolic 50–76; PULSE 60–76; RESP 16–20; TEMP 35.9–36.8; O2SAT 97–100
[2021-06-28] MEDS: metroNIDAZOLE 500 MG/ISO 100ML 500 MG/100 ML BAG 100 MG IVPB ×4 (05:18→23:48)
[2021-06-28] MEDS: hydrALAZINE HCL 25 MG TABLET PO ×3 (05:18→21:01)
[2021-06-28] MEDS: hydrALAZINE 12.5 MG TABLET PO ×3 (05:18→21:00)
[2021-06-28 06:27] LABS: Basophils Absolute Auto 0.1 K/mm3 (0.0-0.1); Basophils Percent Auto 1.3 % (0.2-1.2); Eosinophils Absolute Auto 0.6 K/mm3 (0-0.3); Hematocrit 27.7 % (37.0-47.0); Hemoglobin 8.9 g/dL (12.0-15.0); Immature Granulocyte Absolute 0.04 K/mm3 (0.00-0.031); Immature Granulocyte Percent A 0.5 % (0-0.5); Lymphocytes Absolute Auto 1.31 K/mm3 (0.9-3.2); Lymphocytes Percent Auto 17.2 % (18.3-44.2); Mean Corpuscular HGB Conc 32.1 g/dl (32-36); Mean Corpuscular Hemoglobin 31.1 pg (26-34); Mean Corpuscular Volume 96.9 fl (80-100); Mean Platelet Volume 11.5 fl (7.4-10.4); Monocytes Absolute Auto 1.2 K/mm3 (0.1-0.6); Monocytes Percent Auto 15.4 % (2.6-8.5); Neutrophils Absolute Auto 4.4 K/mm3 (1.3-6.7); Neutrophils Percent Auto 57.6 % (45.5-73.1); Platelet Count Result 162 k/mm3 (150-375); Red Blood Count 2.86 M/mm3 (4.2-5.4); Red Cell Distribution Width 15.3 % (11.5-14.5); White Blood Count 7.6 K/mm3 (4.5-10.0)
[2021-06-28 06:47] LABS: Albumin Level 2.9 g/dL (3.5-5.1); Anion Gap 8 mmol/L (8-16); Blood Urea Nitrogen 58 mg/dL (7-17); Calcium 8.4 mg/dL (8.4-10.2); Carbon Dioxide 23 mmol/L (22-30); Chloride 103 mmol/L (98-107); Estimated CRCL calculation 15 ml/min; Estimated Glomerular Filt Rate 17; Glucose 67 mg/dL (65-110); Potassium 4.4 mmol/L (3.4-5.0); Sodium 134 mmol/L (137-145)
[2021-06-28 07:44] LABS: Glucose Point of Care 53 mg/dl (65-105)
[2021-06-28] MEDS: GLUCOSE ORAL GEL 15 GM OF GLUCSE IN 37.5 GM TUBE PO (07:45)
[2021-06-28] MEDS: ISOSORBIDE DINITRATE 20 MG TABLET PO ×3 (08:02→16:45)
[2021-06-28] MEDS: DOXYCYCLINE 100 MG/NS 100 ML 100 MG/100 ML BAG IVPB ×2 (08:02→21:01)
[2021-06-28] MEDS: MULTIVITAMINS THERAPEUTIC TAB (*BKC) 1 TABLET PO (08:02)
[2021-06-28] MEDS: PANTOPRAZOLE 40 MG TABLET PO (08:02)
[2021-06-28] MEDS: CHOLECALCIFEROL 1,000 UNITS TABLET 5000 UNITS PO (08:02)
[2021-06-28] MEDS: carvediloL 25 MG TABLET PO ×2 (08:02→21:00)
[2021-06-28] MEDS: TOLNAFTATE 1% POWDER 45 GM BTL 1 APPLIC TOPICAL ×3 (08:03→16:46)
[2021-06-28] MEDS: cefTRIAXone 2 GM in SODIUM CHLORIDE 0.9% IV 100 ML 200 ML IVPB (08:03)
[2021-06-28 08:23] LABS: Glucose Point of Care 73 mg/dl (65-105)
--- NOTE | 2021-06-28 11:12 | P.PNIM_ITS ---
Progress Note: A&P Assessment and Plan (1) Pulmonary hypertension: Code(s): I27.20 - Pulmonary hypertension, unspecified Status: Acute Assessment and Plan: Monitor closely continue home medication Resume hydralazine and isosorbide (2) Acute hyperglycemia: Code(s): R73.9 - Hyperglycemia, unspecified Status: Acute Assessment and Plan: Secondary to uncontrolled diabetes mellitus type 2 Insulin sliding scale Lantus (3) Severe aortic stenosis: Code(s): I35.0 - Nonrheumatic aortic (valve) stenosis Status: Acute Assessment and Plan: Patient high risk for surgical intervention Follow-up with established cardiology as outpatient Monitor closely volume status Patient is very sensitive to volume status Currently of diuretic (4) Acute and chronic respiratory failure with hypoxia: Code(s): J96.21 - Acute and chronic respiratory failure with hypoxia Status: Acute Assessment and Plan: Multifactorial concern for pneumonia and pulmonary edema Improved daily evaluation for diuresis Blood culture sputum culture COVID-19 influenza test negative so far Empiric IV antibiotics Repeat chest x-ray (5) Acute on chronic diastolic heart failure: Code(s): I50.33 - Acute on chronic diastolic (congestive) heart failure Status: Acute Assessment and Plan: Status post IV Lasix daily evaluation for diuresis Serial troponin Currently diuretic on hold Follow CMP and electrolytes Monitor closely as patient is sensitive to volume status changes as she has severe aortic stenosis (6) Diabetes: Code(s): E11.9 - Type 2 diabetes mellitus without complications Status: Chronic Assessment and Plan: Uncontrolled with hyperglycemia complicated with nephropathy Insulin sliding scale Lantus Diabetic diet (7) Hypertension: Code(s): I10 - Essential (primary) hypertension Status: Chronic Assessment and Plan: Continue Coreg isosorbide/hydralazine (8) Anemia in chronic illness: Code(s): D63.8 - Anemia in other chronic diseases classified elsewhere Status: Acute Assessment and Plan: Monitor closely transfuse if hemoglobin below 7 (9) Acute on chronic renal insufficiency: Code(s): N28.9 - Disorder of kidney and ureter, unspecified; N18.9 - Chronic kidney disease, unspecified Status: Acute Assessment and Plan: Nephrology consult CT scan of the abdomen pending Urine electrolytes was sent Most likely prerenal secondary to CHF exacerbation status post IV diuresis and re-evaluate CHF appears euvolemic Start gentle IV hydration for 10 hours Nephrology following Subjective Date/time seen: 06/28/21 11:12 Interval history: Chief Complaint: 70 years old female with past medical history of chronic renal failure chronic respiratory failure on oxygen at home CHF pneumonia recent admission to the hospital for DKA and hypotension severe aortic stenosis presented to the hospital with not feeling well for few days associated with shortness of breath worsening gradually patient check her blood sugar was significantly elevated came to the ER also shoe was complaining of lower extremity swelling patient still complained of generalized weakness worsening gradually patient has history of severe aortic stenosis was deemed high risk for surgical intervention at the ER chest x-ray shows pulmonary edema versus pneumonia also creatinine was elevated has hyper glycemia patient admitted to [facility] for further evaluation of treatment of probabl
[2021-06-28] MEDS: INSULIN ASPART (*BKC) 100 UNITS/ML SUB-Q (11:39)
--- NOTE | 2021-06-28 11:58 | P.PNNP_ITS ---
Progress Note: A&P Assessment and Plan (1) GISELLE (acute kidney injury): Code(s): N17.9 - Acute kidney failure, unspecified Status: Acute Assessment and Plan: * improving at this time * due to pneumonia or exacerbation of CHF or perhaps both * follow renal function closely in the setting of diuresis (component of renal venous hypertension?) * creatine has fluctuated to extremes in the last few years (2) Chronic kidney disease, stage IV (severe): Code(s): N18.4 - Chronic kidney disease, stage 4 (severe) Status: Chronic Assessment and Plan: * baseline creatine averages around 2.0 - 2.7mg/dl * thought to be secondary to her HTN, DM, cardiac/vascular disease and need for diuretics to maintain her volume status * noted fluctuations in kidney function due to fluid status and diuretics - try to switch to oral diuretics tomorrow (3) Acute and chronic respiratory failure with hypoxia: Code(s): J96.21 - Acute and chronic respiratory failure with hypoxia Status: Acute Assessment and Plan: * presumably due to pneumonia and heart failure * follow respiratory status with current treatments * on antibioitcs for presumed pneumonia (4) Acute on chronic diastolic heart failure: Code(s): I50.33 - Acute on chronic diastolic (congestive) heart failure Status: Acute Assessment and Plan: * suspected based on CXR findings * back on IV diuretics - careful with use given valvular heart disease * follow daily weights, I/Os, and respiratory status (5) Anemia: Code(s): D64.9 - Anemia, unspecified Status: Chronic Assessment and Plan: * likely due to CKD as well as acute illness * dose with Epogen during this hospital stay * PRBC transfusion (on 06/26/21) * follow H/H (6) Hypertension: Code(s): I10 - Essential (primary) hypertension Status: Chronic Assessment and Plan: * reasonable control * follow trend of hemodynamics (7) Diabetes: Qualifiers: Diabetes mellitus complication status: with other specified complication 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 Subjective Date/time seen: 06/28/21 11:58 Overall, she feels she is making slow and steady improvement; breathing/respiratory status seems stable if no improved with current therapy; H/H remains stable since PRBC transfusion; no other issues/events overnight or earlier this monting. Exam Narrative: General: somewhat ill appearing female in NAD Heart: normal S1 and S2; no rub Lungs: coarse and decreased at bases Abdomen: soft, nontender, nondistended, positive bowel sounds Extremities: no cyanosis or clubbing; trace - 1+ edema Skin: warm and dry Objective Data Vital Signs Vital Signs: Vital Signs Temp Pulse Resp BP Pulse Ox 06/28/21 08:10 36.7 C 66 18 135/66 98 06/28/21 08:02 60 06/28/21 07:55 98 06/28/21 04:00 35.9 C L 60 16 131/50 L 100 06/28/21 00:00 62 06/27/21 23:24 36.1 C L 65 17 135/54 L 10
--- NOTE | 2021-06-28 11:58 | PM.PNNEP ---
Progress Note: A&P Assessment and Plan (1) GISELLE (acute kidney injury): Code(s): N17.9 - Acute kidney failure, unspecified Status: Acute Assessment and Plan: improving at this time due to pneumonia or exacerbation of CHF or perhaps both follow renal function closely in the setting of diuresis (component of renal venous hypertension?) creatine has fluctuated to extremes in the last few years (2) Chronic kidney disease, stage IV (severe): Code(s): N18.4 - Chronic kidney disease, stage 4 (severe) Status: Chronic Assessment and Plan: baseline creatine averages around 2.0 - 2.7mg/dl thought to be secondary to her HTN, DM, cardiac/vascular disease and need for diuretics to maintain her volume status noted fluctuations in kidney function due to fluid status and diuretics - try to switch to oral diuretics tomorrow (3) Acute and chronic respiratory failure with hypoxia: Code(s): J96.21 - Acute and chronic respiratory failure with hypoxia Status: Acute Assessment and Plan: presumably due to pneumonia and heart failure follow respiratory status with current treatments on antibioitcs for presumed pneumonia (4) Acute on chronic diastolic heart failure: Code(s): I50.33 - Acute on chronic diastolic (congestive) heart failure Status: Acute Assessment and Plan: suspected based on CXR findings back on IV diuretics - careful with use given valvular heart disease follow daily weights, I/Os, and respiratory status (5) Anemia: Code(s): D64.9 - Anemia, unspecified Status: Chronic Assessment and Plan: likely due to CKD as well as acute illness dose with Epogen during this hospital stay PRBC transfusion (on 06/26/21) follow H/H (6) Hypertension: Code(s): I10 - Essential (primary) hypertension Status: Chronic Assessment and Plan: reasonable control follow trend of hemodynamics (7) Diabetes: Qualifiers: Diabetes mellitus complication status: with other specified complication 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 Subjective Date/time seen: 06/28/21 11:58 Overall, she feels she is making slow and steady improvement; breathing/respiratory status seems stable if no improved with current therapy; H/H remains stable since PRBC transfusion; no other issues/events overnight or earlier this monting. Exam Narrative: General: somewhat ill appearing female in NAD Heart: normal S1 and S2; no rub Lungs: coarse and decreased at bases Abdomen: soft, nontender, nondistended, positive bowel sounds Extremities: no cyanosis or clubbing; trace - 1+ edema Skin: warm and dry Objective Data Vital Signs Vital Signs: Vital Signs Temp Pulse Resp BP Pulse Ox 06/28/21 08:10 36.7 C 66 18 135/66 98 06/28/21 08:02 60 06/28/21 07:55 98 06/28/21 04:00 35.9 C L 60 16 131/50 L 100 06/28/21 00:00 62 06/27/21 23:24 36.1 C L 65 17 135/54 L 100 06/27/21 22:36 97 06/27/21 20:47 67 06/27/21 20:00 35.9 C L 65 18 167/65 H 100 06/27/21 19:58 98 06/27/21 16:03 67 06/27/21 16:00 35.8 C L 69 20 148/57 H 98 06/27/21 13:42 98 06/27/21 12:01 69 06/27/21 12:00 36.1 C L 68 16 161/58 H 100 Intake/Output Intake/Output: Intake & Output 06/25/21 06/26/21 06/27/21 06/28/21 23:59 23:59 23:59 23:59 Intake Total 1740 1634 1515 640 Balance 1740 1634 1515 640 Meds/Results Medications: Active Medications Generic Name Dose Route Start Last Admin Tr
[2021-06-28 12:05] LABS: Glucose Point of Care 98 mg/dl (65-105)
[2021-06-28 16:24] LABS: Glucose Point of Care 100 mg/dl (65-105)
[2021-06-28] MEDS: BUMETANIDE INJ 1 MG/4 ML VIAL 1.5 MG IV PUSH (16:44)
[2021-06-28] MEDS: ACETAMINOPHEN 325 MG TABLET 650 MG PO (17:01)
[2021-06-28] MEDS: ATORVASTATIN 40 MG TABLET PO (17:02)
[2021-06-28 20:58] LABS: Immunochemical Fecal Occult Bl Negative (N)
[2021-06-28 20:59] LABS: IFOB Positive Control Positive
[2021-06-28] MEDS: MIRTAZAPINE 15 MG TABLET PO (21:00)
[2021-06-28 21:19] LABS: Glucose Point of Care 96 mg/dl (65-105)
[2021-06-29] VITALS (10 sets, daily range): BP systolic 142–152; BP diastolic 47–56; PULSE 65–78; RESP 16–20; TEMP 36.2–37.1; O2SAT 92–100
[2021-06-29] MEDS: metroNIDAZOLE 500 MG/ISO 100ML 500 MG/100 ML BAG 100 MG IVPB ×2 (05:34→11:21)
[2021-06-29] MEDS: hydrALAZINE HCL 25 MG TABLET PO ×2 (05:38→13:26)
[2021-06-29] MEDS: hydrALAZINE 12.5 MG TABLET PO ×2 (05:38→13:26)
[2021-06-29 05:41] LABS: Basophils Absolute Auto 0.1 K/mm3 (0.0-0.1); Basophils Percent Auto 1.1 % (0.2-1.2); Eosinophils Absolute Auto 0.8 K/mm3 (0-0.3); Eosinophils Percent Auto 10.4 % (0-4.4); Hemoglobin 8.8 g/dL (12.0-15.0); Immature Granulocyte Absolute 0.03 K/mm3 (0.00-0.031); Immature Granulocyte Percent A 0.4 % (0-0.5); Lymphocytes Absolute Auto 1.13 K/mm3 (0.9-3.2); Lymphocytes Percent Auto 14.3 % (18.3-44.2); Mean Corpuscular HGB Conc 31.4 g/dl (32-36); Mean Corpuscular Hemoglobin 30.9 pg (26-34); Mean Corpuscular Volume 98.2 fl (80-100); Monocytes Absolute Auto 1.2 K/mm3 (0.1-0.6); Monocytes Percent Auto 15.2 % (2.6-8.5); Neutrophils Absolute Auto 4.6 K/mm3 (1.3-6.7); Neutrophils Percent Auto 58.6 % (45.5-73.1); Platelet Count Result 157 k/mm3 (150-375); Red Blood Count 2.85 M/mm3 (4.2-5.4); Red Cell Distribution Width 15.4 % (11.5-14.5); White Blood Count 7.9 K/mm3 (4.5-10.0)
[2021-06-29 05:52] LABS: Albumin Level 2.8 g/dL (3.5-5.1); Anion Gap 9 mmol/L (8-16); Blood Urea Nitrogen 51 mg/dL (7-17); Calcium 8.6 mg/dL (8.4-10.2); Carbon Dioxide 22 mmol/L (22-30); Chloride 104 mmol/L (98-107); Estimated CRCL calculation 14 ml/min; Estimated Glomerular Filt Rate 16; Glucose 71 mg/dL (65-110); Phosphorus 5.1 mg/dL (2.5-4.5); Potassium 4.4 mmol/L (3.4-5.0); Sodium 135 mmol/L (137-145)
[2021-06-29 07:38] LABS: Glucose Point of Care 113 mg/dl (65-105)
--- NOTE | 2021-06-29 08:09 | PCNWS ---
Weekly nutritional screen. Patient is tolerating current diet with adequate intake. No weight loss reported. No nutritional needs at this time.
[2021-06-29] MEDS: CHOLECALCIFEROL 1,000 UNITS TABLET 5000 UNITS PO (08:47)
[2021-06-29] MEDS: BUMETANIDE 1 MG TABLET PO (08:48)
[2021-06-29] MEDS: carvediloL 25 MG TABLET PO (08:48)
[2021-06-29] MEDS: PANTOPRAZOLE 40 MG TABLET PO (08:49)
[2021-06-29] MEDS: ISOSORBIDE DINITRATE 20 MG TABLET PO ×2 (08:49→12:08)
[2021-06-29] MEDS: MULTIVITAMINS THERAPEUTIC TAB (*BKC) 1 TABLET PO (08:49)
[2021-06-29] MEDS: TOLNAFTATE 1% POWDER 45 GM BTL 1 APPLIC TOPICAL ×2 (08:50→12:09)
[2021-06-29] MEDS: cefTRIAXone 2 GM in SODIUM CHLORIDE 0.9% IV 100 ML 200 ML IVPB (08:51)
[2021-06-29] MEDS: ACETAMINOPHEN 325 MG TABLET 650 MG PO (08:53)
[2021-06-29] MEDS: INSULIN ASPART (*BKC) 100 UNITS/ML SUB-Q ×2 (08:55→11:28)
[2021-06-29] MEDS: DOXYCYCLINE 100 MG/NS 100 ML 100 MG/100 ML BAG IVPB (09:32)
[2021-06-29 11:25] LABS: EDCOVIDSCREEN Negative (Negative)
[2021-06-29 11:29] LABS: Glucose Point of Care 126 mg/dl (65-105)
--- NOTE | 2021-06-29 12:59 | P.PNNP_ITS ---
Progress Note: A&P Assessment and Plan (1) GISELLE (acute kidney injury): Code(s): N17.9 - Acute kidney failure, unspecified Status: Acute Assessment and Plan: * improving at this time * due to pneumonia or exacerbation of CHF or perhaps both * creatinine is improved to 2.9 . His almost her baseline. (2) Chronic kidney disease, stage IV (severe): Code(s): N18.4 - Chronic kidney disease, stage 4 (severe) Status: Chronic Assessment and Plan: * baseline creatine averages around 2.0 - 2.7mg/dl * thought to be secondary to her HTN, DM, cardiac/vascular disease and need for diuretics to maintain her volume status * Variations in creatinine probably from diuretics and volume status. (3) Acute and chronic respiratory failure with hypoxia: Code(s): J96.21 - Acute and chronic respiratory failure with hypoxia Status: Acute Assessment and Plan: * Improved (4) Acute on chronic diastolic heart failure: Code(s): I50.33 - Acute on chronic diastolic (congestive) heart failure Status: Acute Assessment and Plan: * suspected based on CXR findings * back on IV diuretics - careful with use given valvular heart disease * follow daily weights, I/Os, and respiratory status (5) Anemia: Code(s): D64.9 - Anemia, unspecified Status: Chronic Assessment and Plan: * likely due to CKD as well as acute illness * dose with Epogen during this hospital stay * PRBC transfusion (on 06/26/21) * hemoglobin 8.8 (6) Hypertension: Code(s): I10 - Essential (primary) hypertension Status: Chronic Assessment and Plan: * reasonable control * follow trend of hemodynamics (7) Diabetes: Qualifiers: Diabetes mellitus type: type 2 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 Subjective Date/time seen: 06/29/21 12:59 Interval history: Mine is feeling about the same. No cough or shortness of breath Exam Narrative: General: somewhat ill appearing female in NAD Heart: normal S1 and S2; no rub or gallop Lungs: coarse and decreased at bases Abdomen: soft, nontender, nondistended, positive bowel sounds Extremities: no cyanosis or clubbing; trace - 1+ edema Skin: no rash Objective Data Vital Signs Vital Signs: Vital Signs - 24 hr 06/28/21 16:03 06/28/21 16:15 06/28/21 19:55 Temperature 36.8 C 36.1 C L Pulse Rate 66 66 72 Respiratory Rate 16 17 Blood Pressure 147/61 H 161/76 H Pulse Oximetry 97 100 06/28/21 20:00 06/28/21 21:00 06/28/21 22:45 Temperature Pulse Rate 76 71 Respiratory Rate 17 20 Blood Pressure Pulse Oximetry 100 97 06/28/21 23:23 06/29/21 00:00 06/29/21 02:15 Temperature 36.5 C Pulse Rate 69 67 Respiratory Rate 18 20 Blood Pressure 133/54 L Pulse Oximetry 98 97 06/29/21 03:
--- NOTE | 2021-06-29 12:59 | PM.PNNEP ---
Progress Note: A&P Assessment and Plan (1) GISELLE (acute kidney injury): Code(s): N17.9 - Acute kidney failure, unspecified Status: Acute Assessment and Plan: improving at this time due to pneumonia or exacerbation of CHF or perhaps both creatinine is improved to 2.9 . His almost her baseline. (2) Chronic kidney disease, stage IV (severe): Code(s): N18.4 - Chronic kidney disease, stage 4 (severe) Status: Chronic Assessment and Plan: baseline creatine averages around 2.0 - 2.7mg/dl thought to be secondary to her HTN, DM, cardiac/vascular disease and need for diuretics to maintain her volume status Variations in creatinine probably from diuretics and volume status. (3) Acute and chronic respiratory failure with hypoxia: Code(s): J96.21 - Acute and chronic respiratory failure with hypoxia Status: Acute Assessment and Plan: Improved (4) Acute on chronic diastolic heart failure: Code(s): I50.33 - Acute on chronic diastolic (congestive) heart failure Status: Acute Assessment and Plan: suspected based on CXR findings back on IV diuretics - careful with use given valvular heart disease follow daily weights, I/Os, and respiratory status (5) Anemia: Code(s): D64.9 - Anemia, unspecified Status: Chronic Assessment and Plan: likely due to CKD as well as acute illness dose with Epogen during this hospital stay PRBC transfusion (on 06/26/21) hemoglobin 8.8 (6) Hypertension: Code(s): I10 - Essential (primary) hypertension Status: Chronic Assessment and Plan: reasonable control follow trend of hemodynamics (7) Diabetes: Qualifiers: Diabetes mellitus type: type 2 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 Subjective Date/time seen: 06/29/21 12:59 Interval history: Mine is feeling about the same. No cough or shortness of breath Exam Narrative: General: somewhat ill appearing female in NAD Heart: normal S1 and S2; no rub or gallop Lungs: coarse and decreased at bases Abdomen: soft, nontender, nondistended, positive bowel sounds Extremities: no cyanosis or clubbing; trace - 1+ edema Skin: no rash Objective Data Vital Signs Vital Signs: Vital Signs - 24 hr 06/28/21 16:03 06/28/21 16:15 06/28/21 19:55 Temperature 36.8 C 36.1 C L Pulse Rate 66 66 72 Respiratory Rate 16 17 Blood Pressure 147/61 H 161/76 H Pulse Oximetry 97 100 06/28/21 20:00 06/28/21 21:00 06/28/21 22:45 Temperature Pulse Rate 76 71 Respiratory Rate 17 20 Blood Pressure Pulse Oximetry 100 97 06/28/21 23:23 06/29/21 00:00 06/29/21 02:15 Temperature 36.5 C Pulse Rate 69 67 Respiratory Rate 18 20 Blood Pressure 133/54 L Pulse Oximetry 98 97 06/29/21 03:29 06/29/21 04:00 06/29/21 05:38 Temperature 37.1 C Pulse Rate 78 65 Respiratory Rate 16 Blood Pressure 142/49 H 152/53 H Pulse Oximetry 92 06/29/21 08:00 06/29/21 08:48 06/29/21 08:53 Temperature 36.9 C Pulse Rate 72 75 75 Respiratory Rate 16 Blood Pressure 144/47 H Pulse Oximetry 100 06/29/21 12:00 06/29/21 12:25 Temperature 36.2 C L Pulse Rate 69 70 Respiratory Rate 16 Blood Pressure 149/56 H Pulse Oximetry 100 Intake/Output Intake/Output: Intake & Output 06/26/21 06/27/21 06/28/21 06/29/21 23:59 23:59 23:59 23:59 Intake Total 1634 1515 1480 1180 Balance 1634 1515 1480 1180 Meds/Results Medications: Active Medications Generic Nam
[2021-06-29] MEDS: ONDANSETRON INJ 4 MG/2 ML VIAL IV PUSH (13:26)
--- NOTE | 2021-06-29 14:05 | PM.DS ---
DS: Admitting Diagnosis Discharge Date 06/29/2021 Admitting Diagnosis DKA and hypotension DS: Discharge Diagnosis Discharge Diagnosis (1) Pulmonary hypertension: Code(s): I27.20 - Pulmonary hypertension, unspecified Status: Acute Assessment and Plan: Monitor closely continue home medication Resume hydralazine and isosorbide (2) Acute hyperglycemia: Code(s): R73.9 - Hyperglycemia, unspecified Status: Acute Assessment and Plan: Secondary to uncontrolled diabetes mellitus type 2 Insulin sliding scale Lantus (3) Severe aortic stenosis: Code(s): I35.0 - Nonrheumatic aortic (valve) stenosis Status: Acute Assessment and Plan: Patient high risk for surgical intervention Follow-up with established cardiology as outpatient Monitor closely volume status Patient is very sensitive to volume status Currently of diuretic (4) Acute and chronic respiratory failure with hypoxia: Code(s): J96.21 - Acute and chronic respiratory failure with hypoxia Status: Acute Assessment and Plan: Multifactorial concern for pneumonia and pulmonary edema Improved daily evaluation for diuresis Blood culture sputum culture COVID-19 influenza test negative so far Empiric IV antibiotics Repeat chest x-ray (5) Acute on chronic diastolic heart failure: Code(s): I50.33 - Acute on chronic diastolic (congestive) heart failure Status: Acute Assessment and Plan: Status post IV Lasix daily evaluation for diuresis Serial troponin Currently diuretic on hold Follow CMP and electrolytes Monitor closely as patient is sensitive to volume status changes as she has severe aortic stenosis (6) Diabetes: Code(s): E11.9 - Type 2 diabetes mellitus without complications Status: Chronic Assessment and Plan: Uncontrolled with hyperglycemia complicated with nephropathy Insulin sliding scale Lantus Diabetic diet (7) Hypertension: Code(s): I10 - Essential (primary) hypertension Status: Chronic Assessment and Plan: Continue Coreg isosorbide/hydralazine (8) Anemia in chronic illness: Code(s): D63.8 - Anemia in other chronic diseases classified elsewhere Status: Acute Assessment and Plan: Monitor closely transfuse if hemoglobin below 7 (9) Acute on chronic renal insufficiency: Code(s): N28.9 - Disorder of kidney and ureter, unspecified; N18.9 - Chronic kidney disease, unspecified Status: Acute Assessment and Plan: Nephrology consult CT scan of the abdomen pending Urine electrolytes was sent Most likely prerenal secondary to CHF exacerbation status post IV diuresis and re-evaluate CHF appears euvolemic Start gentle IV hydration for 10 hours Nephrology following DS: Summary Hospital Course Reason for hospitalization: Chief Complaint: 70 years old female with past medical history of chronic renal failure chronic respiratory failure on oxygen at home CHF pneumonia recent admission to the hospital for DKA and hypotension severe aortic stenosis presented to the hospital with not feeling well for few days associated with shortness of breath worsening gradually patient check her blood sugar was significantly elevated came to the ER also shoe was complaining of lower extremity swelling patient still complained of generalized weakness worsening gradually patient has history of severe aortic stenosis was deemed high risk for surgical intervention at the ER chest x-ray shows pulmonary edema versus pneumonia also creatinine was elevated has hyper glycemia patient admitted to the hospital for further evaluation of treatment of probable pneumonia CHF exacerbation and uncontrolled diabetes patient currently on 4 L of oxygen Hospital Course: patient states feeling better denies any abdominal pain nausea or vomiting, denies any cough shortness of breath, patient presented with pnumonia and repeat chest x-ray on 06/22 showed wors
== END 2021-06-29 14:43 | disposition home or self-care (01) | DRG 291 ==
LOC: ANHED 03:25 → ANH2MED 04:10
PROVIDERS: Internal Medicine; Internal Medicine Nephrology; Admitting Provider Internal Medicine; Emergency Provider Emergency Medicine; PCP Family Medicine; Visit Provider Family Medicine
DX: I13.0 Hypertensive heart and chronic kidney disease with heart failure and stage 1 through stage 4 chronic kidney disease, or unspecified chronic kidney disease (principal); E11.10 Type 2 diabetes mellitus with ketoacidosis without coma; J96.21 Acute and chronic respiratory failure with hypoxia; I50.33 Acute on chronic diastolic (congestive) heart failure; J18.9 Pneumonia, unspecified organism; N18.4 Chronic kidney disease, stage 4 (severe); N17.9 Acute kidney failure, unspecified; D63.8 Anemia in other chronic diseases classified elsewhere; I27.20 Pulmonary hypertension, unspecified; Z20.822 Contact with and (suspected) exposure to COVID-19; I35.0 Nonrheumatic aortic (valve) stenosis; E11.22 Type 2 diabetes mellitus with diabetic chronic kidney disease; Z99.81 Dependence on supplemental oxygen; I95.9 Hypotension, unspecified; I65.23 Occlusion and stenosis of bilateral carotid arteries; D63.1 Anemia in chronic kidney disease; E78.5 Hyperlipidemia, unspecified; M81.0 Age-related osteoporosis without current pathological fracture; G47.33 Obstructive sleep apnea (adult) (pediatric); Z79.899 Other long term (current) drug therapy; Z82.49 Family history of ischemic heart disease and other diseases of the circulatory system; Z79.4 Long term (current) use of insulin; Z82.3 Family history of stroke
CPT/HCPCS: 36415; 36430; 36600; 51701; 71045; 71250; 74176; 80053; 80069; 81001; 81002; 81050; 82010; 82274; 82375; 82550; 82570; 82607; 82746; 82805; 82948; 83010; 83050; 83540; 83550; 83735; 83935; 84100; 84133; 84145; 84156; 84300; 84443; 84484; 84550; 85014; 85018; 85025; 86140; 86850; 86900; 86901; 86920; 87040; 87426; 87502; 87899; 93005; 93306; 93970; 96361; 96365; 96366; 96367; 96374; 96375; 96376; 97110; 97116; 97161; 97166; 97530; 97535; 99285; A9270; C9803; G0378; J0696; J1644; J1815; J1940; J2405; J7030; J7050; P9016; Q5105; U0003; U0005

== ENCOUNTER 2021-07-05 07:28 | Inpatient (IN) | payer OTHER, SELFPAY ==
[2021-07-05] VITALS (9 sets, daily range): BP systolic 147–161; BP diastolic 58–64; PULSE 65–91; RESP 20–24; TEMP 36.9–37.1; O2SAT 94–100
--- NOTE | ~2021-07-05 | XR_ITS ---
XR chest 2V 07/08/2021 13:46 Indication: Dyspnea. Procedure: 2 view chest Comparison: Comparison to multiple prior studies sequentially, with oldest reviewed study dated 08/2021. Findings: Persistent diffuse bilateral airspace disease. Cardiomegaly. No pneumothorax. No acute osse ous abnormality. Impression: 1: Persistent diffuse bilateral airspace disease which may represent edema and/or pneumonia. Reviewed, dictated and finalized at location A. Impression: 1: Persistent diffuse bilateral airspace disease which may represent edema and/ or pneumonia.
--- NOTE | ~2021-07-05 | XR_ITS ---
EXAMINATION: XR chest 2V DATE: 07/10/2021 08:22 INDICATION: Shortness of breath. TECHNIQUE: Frontal and lateral views of the chest were obtained. COMPARISON: Chest 2 views 07/08/2021, 03/25/19, chest CT 06/20/2021, chest single view 03/20/21, 01/26/21 FINDINGS: There is mild elevation of right hemidiaphragm. There are airspace opacities and coarse int erstitial opacities throughout the lungs bilaterally. There are small pleural effusions. No pneumotho rax. Cardiomegaly is noted. There is an old healed fracture of proximal right humerus. IMPRESSION: 1. Stable diffuse lung disease, consistent with pulmonary edema and/or pneumonia that is likely super imposed on chronic interstitial lung disease. 2. Small pleural effusions. 3. Cardiomegaly. Reviewed, dictated and finalized at location A. IMPRESSION: 1. Stable diffuse lung disease, consistent with pulmonary edema and/or pneumoni a that is likely superimposed on chronic interstitial lung disease. 2. Small pleural effusions. 3. Cardiomegaly.
--- NOTE | ~2021-07-05 | US_ITS ---
EXAMINATION: US venous doppler [facility] DATE: 07/06/2021 12:34 INDICATION: Right calf edema and pain. TECHNIQUE: Grayscale ultrasound images without and with compression and Doppler ultrasound images of the bilateral lower extremity veins were obtained. COMPARISON: Ultrasound 06/28/2021 FINDINGS: The visualized portions of right common femoral vein, profunda (deep) femoral vein, femoral vein, pop liteal vein, posterior tibial veins, and greater saphenous vein outflow are patent. There is thrombus in the peroneal veins. The visualized portions of left common femoral vein, profunda femoral vein, femoral vein, popliteal v ein, peroneal veins, posterior tibial veins, and greater saphenous vein outflow are patent. IMPRESSION: 1. Deep vein thrombosis involving the right peroneal veins. I called this result to Dr. Meza. Reviewed, dictated and finalized at location A. IMPRESSION: 1. Deep vein thrombosis involving the right peroneal veins. I called this resu lt to Dr. Meza.
--- NOTE | ~2021-07-05 | XR_ITS ---
EXAMINATION: XR chest 2V DATE: 07/05/2021 07:59 INDICATION: Pneumonia presenting with shortness of breath and bilateral lower limb swelling TECHNIQUE: frontal and lateral views of the chest were obtained. COMPARISON: Chest radiograph dated 06/22/2021 and 06/26/2021 FINDINGS: Small lung volumes. No significant change attending for differences in technique in the diffuse bilat eral airspace and coarse interstitial opacities throughout both lungs relatively sparing the left ape x. No pneumothorax or pleural effusion. Cardiomegaly. Enlargement of the central pulmonary arteries c onsistent with pulmonary arterial hypertension. Mild thoracic and severe upper lumbar spondylosis wit h chronic mild anterior wedging at T10. IMPRESSION: 1. No significant change in diffuse bilateral interstitial and airspace opacities consistent with pul monary edema or pneumonia. 2. Cardiomegaly. 3. Enlarged central pulmonary veins which can be seen with pulmonary arterial hypertension. Reviewed, dictated and finalized at location A. IMPRESSION: 1. No significant change in diffuse bilateral interstitial and airspace opaciti es consistent with pulmonary edema or pneumonia. 2. Cardiomegaly. 3. Enlarged central pulmonary veins which can be seen with pulmonary arterial h ypertension.
--- NOTE | ~2021-07-05 | NM_ITS ---
EXAMINATION: NM pulmonary perfusion DATE: 07/08/2021 13:43 INDICATION: Shortness of breath. TECHNIQUE: 5.2 mCi Tc-99m MAA was administered intravenously for perfusion images. Scintigraphic marilee ges of the chest were obtained. COMPARISON: Chest 2 views 07/08/2021 FINDINGS: Perfusion images show matched large defects in the upper lobes and moderate sized defects in the lowe r lobes and right middle lobe. IMPRESSION: 1. Nondiagnostic (intermediate probability for pulmonary embolism). Reviewed, dictated and finalized at location A.
--- NOTE | 2021-07-05 07:35 | ECG_ITS ---
Measurements Intervals [place] Rate: 84 P: 16 GA: 157 QRS: 9 QRSD: 142 T: -12 QT: 367 QTc: 435 Interpretive Statements SINUS RHYTHM RIGHT BUNDLE BRANCH BLOCK BASELINE ARTIFACT- I, II, AVR ABNORMAL ECG Electronically Signed On 07-05-2021 7:59:51 CDT by Levon Azevedo D.O.
[2021-07-05 07:37] LABS: Glucose Point of Care 406 mg/dl (65-105)
[2021-07-05 08:08] LABS: Basophils Absolute Auto 0.1 K/mm3 (0.0-0.1); Basophils Percent Auto 0.9 % (0.2-1.2); Eosinophils Absolute Auto 0.4 K/mm3 (0-0.3); Eosinophils Percent Auto 4.3 % (0-4.4); Hematocrit 29.1 % (37.0-47.0); Hemoglobin 8.9 g/dL (12.0-15.0); Immature Granulocyte Absolute 0.03 K/mm3 (0.00-0.031); Immature Granulocyte Percent A 0.3 % (0-0.5); Lymphocytes Absolute Auto 0.71 K/mm3 (0.9-3.2); Mean Corpuscular HGB Conc 30.6 g/dl (32-36); Mean Corpuscular Hemoglobin 30.8 pg (26-34); Mean Corpuscular Volume 100.7 fl (80-100); Mean Platelet Volume 11.3 fl (7.4-10.4); Monocytes Absolute Auto 0.6 K/mm3 (0.1-0.6); Monocytes Percent Auto 6.8 % (2.6-8.5); Neutrophils Absolute Auto 7.1 K/mm3 (1.3-6.7); Neutrophils Percent Auto 79.7 % (45.5-73.1); Platelet Count Result 153 k/mm3 (150-375); Red Blood Count 2.89 M/mm3 (4.2-5.4); Red Cell Distribution Width 17.2 % (11.5-14.5); White Blood Count 8.9 K/mm3 (4.5-10.0)
[2021-07-05 08:18] LABS: Alanine Aminotransferase 12 U/L (6-35); Albumin Level 3.1 g/dL (3.5-5.1); Alkaline Phosphatase 44 U/L (38-126); Anion Gap 10 mmol/L (8-16); Aspartate Amino Transferase 25 U/L (14-36); Bilirubin,Total 0.6 mg/dL (0.2-1.3); Blood Urea Nitrogen 46 mg/dL (7-17); Calcium 7.8 mg/dL (8.4-10.2); Carbon Dioxide 23 mmol/L (22-30); Chloride 102 mmol/L (98-107); Estimated CRCL calculation 15 ml/min; Estimated Glomerular Filt Rate 16; Glucose 350 mg/dL (65-110); Potassium 4.6 mmol/L (3.4-5.0); Sodium 135 mmol/L (137-145)
[2021-07-05 08:25] LABS: NT Pro B Type Natriuretic Pept > 35000 pg/mL (5-100)
--- NOTE | 2021-07-05 08:29 | ED.SOB ---
HPI - SOB/Dyspnea General Chief Complaint: Shortness of Breath/Dyspnea Stated Complaint: sob and increased blood sugars Source: RN notes reviewed History of Present Illness HPI Narrative: Patient presents emergency department from [facility] via EMS for shortness of breath and elevated blood sugars. Patient states that she is feeling more short of breath this morning and O2 had to be increased from her normal 2 L to 4 L. Patient was also noted to be hyperglycemic with a blood sugar of 458 she was given her insulin this morning continue to be elevated and was sent to the emergency department for further evaluation. Patient states she has been having increased edema over the past several days states that she had had a recent Doppler of her right leg but did not know the results she states that she is had no fevers or chills denies any chest pain abdominal pain nausea vomiting or any other symptoms patient was recently discharged in the hospital for pneumonia and renal insufficiency Related Data Home Medications Medication Instructions Recorded Confirmed atorvastatin 40 mg PO QPM 12/29/18 06/20/21 carvedilol 25 mg PO BID 01/27/21 06/20/21 amlodipine 10 mg PO DAILY 03/17/21 06/20/21 aspirin 81 mg PO HS 03/17/21 06/20/21 insulin glargine 10 unit SUBCUT HS 03/20/21 06/20/21 Veltassa 8.4 g PO DAILY 06/20/21 06/20/21 acetaminophen 500 mg PO Q6H PRN 06/20/21 06/20/21 albuterol sulfate 2 puff INHALATION QID PRN 06/20/21 06/20/21 cholecalciferol (vitamin D3) 125 mcg PO DAILY 06/20/21 06/20/21 insulin lispro [Humalog KwikPen 1 sliding scale dose SUBCUT 06/20/21 06/20/21 Insulin] USEASDIRECTD insulin lispro [Humalog KwikPen 4 unit SUBCUT TIDWM 06/20/21 06/20/21 Insulin] ipratropium-albuterol 3 ml INHALATION Q6H PRN 06/20/21 06/20/21 isosorbide-hydralazine [BiDil] 2 tablet PO TID 06/20/21 06/20/21 mirtazapine 15 mg PO HS 06/20/21 06/20/21 multivitamin 1 tablet PO DAILY 06/20/21 06/20/21 nystatin 1 applic TOPICAL TID 06/20/21 06/20/21 pantoprazole 40 mg PO DAILY 06/20/21 06/20/21 polyethylene glycol 3350 [Miralax] 17 g PO DAILY PRN 06/20/21 06/20/21 Allergies Allergy/AdvReac Type Severity Reaction Status Date / Time tramadol AdvReac Severe NAUSEA Verified 06/20/21 05:09 codeine AdvReac Intermediate MAKES HER Verified 06/20/21 05:09 FEEL BAD hydrocodone [From [place]] AdvReac Vomiting Verified 06/20/21 05:09 Review of Systems Review of Systems: Gen.: Denies fevers or chills ENT: Denies congestion Respiratory: Reports shortness of breath CV: Denies chest pain or palpitations GI: Denies abdominal pain nausea, emesis or diarrhea Musculoskeletal: Denies back pain or muscle pain edema Neuro: Denies numbness, tingling, weakness or focal weakness Skin: Denies rash Except as documented, all other systems reviewed and negative PMFSH Past Medical History Medical History Aortic valve stenosis moderate to severe noted on cardiac catheterization December 2019 Carotid stenosis (12/2018) bilateral carotid stenosis 50-69% Chronic anemia anemia of chronic disease Chronic kidney disease, stage IV (severe) Colon polyps Colonoscopy in August 2017 showing internal hemorrhoids. Diastolic congestive heart failure due to valvular disease grade 2 diastolic dysfunction, normal EF of 50%, severe left atrial enlargement, mild to moderate mitral valve regurgitation, [id number] tricuspid valve regurgitation Hand fracture History of angiography Right leg Without intervention Hyperlipidemia Hypertension Lymphedema bilateral lower extremities left greater than right Mitral valve prolapse Obstructive sleep apnea on CPAP Osteoporosis Post-menopausal Retinopathy Severe pulmonary hypertension noted on echocardiogram 11/2019 with RVSP of 75 Type 2 diabetes mellitus with insulin therapy Surgical History Surgical History H/O cardiac catheterization
[2021-07-05 08:43] LABS: Influenza A QL RT-PCR Negative (Negative); Influenza B QL RT-PCR Negative (Negative); SARS-CoV-2 RNA PCR Negative
[2021-07-05 09:06] LABS: Alveolar/Arterial O2 Gradient 92.9 mmHg; Base Excess ABG -1.2 mEq/l (+/-2.0); Carboxyhemoglobin 0.1 % THb (0-2.0); Device NASAL CANNULA; Fractional Inspired Oxygen 28 %; HCO3 ABG 22.9 mEq/l (22.0-26.0); Methemoglobin ABG 0.5 %THb (0-1.5); Modified Allen's Test Pass; Oxygen Content ABG 12.3 %vol (16.0-22.0); Oxygen Saturation ABG 93.5 % (95.0-100.0); Oxyhemoglobin 91.4 % THb (90.0-100.0); PCO2 ABG 35.3 mmHg (35.0-45.0); PO2 ABG 65.1 mmHg (80.0-100.0); PO2 FiO2 Ratio Arterial Blood 2.33 %; Site Drawn RIGHT RADIAL; Total Hemoglobin 9.5 g/dL (12.0-18.0); pH ABG 7.429 (7.350-7.450)
[2021-07-05 09:35] LABS: Glucose Point of Care 310 mg/dl (65-105)
--- NOTE | 2021-07-05 11:21 | PM.CNNEP ---
Assessment and Plan Additional Plan 1. Chas has chronic kidney disease. This is most likely due to diabetes hypertension and vascular disease. She probably has chronic pre renal azotemia due to chronic diuretics and heart disease. The patient is currently at her baseline creatinine. This is same now as it was when she left. 2. The patient has volume overload. She has significant swelling and also bilateral infiltrates on chest x-ray. I think she needs more diuretics. Unfortunately this may come with a rise in creatinine. However because of her valvular disease, there is not much we can do to improve her heart function. If we hold off on diuretics her creatinine will stay at this level however we can not let her walk around in heart failure. So were going to need to use diuretics to help her fluid situation and possibly be satisfied with a higher baseline creatinine. Sometimes, if patient's do not respond to the diuretics, dialysis may be necessary to get the fluid off. Hopefully we can hold off on this indefinitely. Will go ahead start IV diuretics and follow the creatinine closely. 3. The patient has hypertension. Her blood pressure is 150. This gives us room for diuresis. The patient is on amlodipine which can make her swelling worse so possibly can try something different in a few days. Gurwinder inhibitors and arbs are probably out because of her chronic pre renal state. 4. Chronic hyperkalemia. The patient is on Veltassa at home. Her potassium looks okay now. 5. Mild hyponatremia. Most likely due to heart failure and renal failure. 6. Anemia patient's hemoglobin is only 8.9. This may contribute to her shortness of breath. Will start Epogen and check irons. 7. Renal osteodystrophy will check a phosphorus tomorrow. 8. Diabetes hospitalist to manage this. History of Present Illness Reason for Consult Consult date: 07/05/21 Chief Complaint Chief complaint: sob and increased blood sugars History of Present Illness Narrative: Mine is a very pleasant 70-year-old lady who has multiple medical problems including chronic kidney disease with a baseline creatinine of 2-2.7, hypertension, diabetes, aortic stenosis, mitral valve prolapse and regurgitation and moderate tricuspid valve regurgitation, pulmonary hypertension, systemic hypertension, carotid artery stenosis, diastolic dysfunction, anemia of chronic kidney disease, obstructive sleep apnea on a CPAP mask, and hyperlipidemia. Patient was recently admitted to the hospital because of acute kidney injury. This was felt to be due to congestive heart failure. She was treated treated supportively and her creatinine on discharge was about 2.9. The patient was doing very well in the [facility] for the last few days. Yesterday she did note that her swelling was a little worse. This morning she will come she was short of breath and so she came to the emergency room for evaluation. He she was found to be swollen. Chest x-ray has bilateral fluid. Her creatinine is the same as it was when she left the hospital last time. She is being admitted. Patient denies any chest pain. She has not had any skin rash. No sores in her mouth her hair loss in clumps. No pain with urination. She is not on any new medications in the last few days that she knows of. Review of Systems Constitutional: Constitutional: Reports no additional constitutional complaints Eyes: Eyes: Reports no additional eye complaints ENT: Reports system reviewed and no additional complaints, except as documented Cardiovascular: Cardiovascular: Reports no additional cardiovascular complaints Respiratory: Respiratory: Reports no additional respiratory complaints Gastrointestinal: Gastrointestinal: Reports no additional gastrointestinal complaints Genitourinary: Genitourinary: Reports no additional female genitourinary complaints Musculoskeletal: Musculoskeletal: Reports no additional musculoskeletal complaints Integu
[2021-07-05] MEDS: BUMETANIDE INJ 2.5 MG/10 ML VIAL 2 MG IV PUSH ×2 (11:59→17:38)
[2021-07-05] MEDS: metOLazone 5 MG TABLET PO (12:02)
[2021-07-05 13:46] LABS: Iron 37 ug/dL (37-170)
[2021-07-05 13:56] LABS: Percent Iron Saturation 25 % (20-50)
--- NOTE | 2021-07-05 15:00 | PM.IMHP ---
H&P: HPI History of Present Illness Date/Time: 07/05/21 15:00 Chief Complaint: Shortness of breath and increased blood sugar. Narrative: This is a pleasant 70-year-old female with insulin-dependent diabetes, hypertension, chronic kidney disease, diastolic congestive heart failure, peripheral vascular disease, valvular heart disease, chronic respiratory failure on oxygen, and other comorbidities who presented to the emergency department via EMS for evaluation of shortness of breath and increased blood sugar. She is known to the hospitalist service with a recent 10 day admission for acute on chronic diastolic congestive heart failure after presenting under similar circumstances. She was diuresed with improvement in her volume status and she was discharged back to her rehab facility on 06/29/2021 near her baseline. Unfortunately she has once again become progressively more edematous and short of breath and she is being admitted for diuresis to help with her volume status. She states compliance with her medication although she eats a regular diet as ?I really do not eat that much and did not feel a diabetic or heart healthy diet was necessary.? She was given 2 mg bumetanide IV and 5 mg p.o. metolazone in the emergency department and she reports having good urine output since however that is not yet reflected in the chart. At the time my evaluation she has no specific complaints and she specifically denies fever, chills, sweats, headache, cold and flu symptoms, sick contacts, chest pain, pleuritic pain, cough, vomiting, diarrhea, and dysuria. Regarding her valvular disease, she was previously slated to undergo surgical aortic valve replacement along with mitral valve repair and/or replacement due to moderate to severe aortic stenosis and significant mitral regurgitation. That surgery was postponed due to COVID infection last fall with associated complications an ongoing medical problems. It does not sound as though she has seen by her cardiothoracic surgeon for quite some time and she is uncertain with the plan is now regarding her surgery. Review of Systems Review of Systems: Twelve systems were reviewed. No blurry vision, polydipsia, or polyuria. No syncope or presyncope. No chest pain. She participates in therapy at her nursing facility. It sounds as though she has become nearly wheelchair-bound, however. Except as documented, all other systems were reviewed and are negative. [facility] Past Medical History Medical History (Updated 07/05/21 @ 14:29 by Rachel Louie PA-C) Anemia of chronic disease Aortic valve stenosis Moderate to severe on cardiac catheterization in 12/2019. Carotid stenosis (12/2018) Bilateral carotid stenosis 50-69%. Chronic kidney disease, stage IV (severe) Chronic respiratory failure with hypoxia, on home oxygen therapy Colon polyps Colonoscopy in August 2017 showing internal hemorrhoids. Congestive heart failure 07/03/2021 echo: Normal LV systolic function, EF 50 to 55%. Increased LV wall thickness. Grade 2 diastolic dysfunction. Reduced RV systolic function. Moderate aortic valve stenosis/regurgitation. Severe pulmonary hypertension, PASP 74 mmHg. Hand fracture Hyperlipidemia Hypertension Lymphedema bilateral lower extremities left greater than right Mitral valve prolapse Moderate to severe aortic stenosis. Mitral valve regurgitation. Obstructive sleep apnea on CPAP Osteoporosis Post-menopausal Retinopathy Severe pulmonary hypertension PASP 74 mmHg on echo in June 2021. Type 2 diabetes mellitus with insulin therapy Valvular heart disease Surgical History Surgical History (Updated 07/05/21 @ 14:12 by Rachel Louie PA-C) History of angiography Right leg without intervention. History of bilateral cataract extraction (10/2019) History of bilateral tubal ligation History of cardiac catheterization (12/2019) Mild coronary artery disease, moderate to severe aortic valve stenosis. Status post laser cataract surge
[2021-07-05 17:29] LABS: Glucose Point of Care 350 mg/dl (65-105)
[2021-07-05] MEDS: INSULIN ASPART (*BKC) 100 UNITS/ML SUB-Q (17:38)
[2021-07-05] MEDS: HEPARIN SODIUM 5,000 UNITS/ML VIAL 5000 UNITS SUB-Q (20:18)
[2021-07-05 20:35] LABS: Glucose Point of Care 322 mg/dl (65-105)
[2021-07-05] MEDS: carvediloL 25 MG TABLET PO (22:05)
[2021-07-05] MEDS: MIRTAZAPINE 15 MG TABLET PO (22:05)
[2021-07-06] VITALS (12 sets, daily range): BP systolic 142–157; BP diastolic 53–72; PULSE 63–74; RESP 18–22; TEMP 36.4–37.4; O2SAT 94–98
[2021-07-06 01:42] LABS: Glucose Point of Care 297 mg/dl (65-105)
[2021-07-06 07:22] LABS: Basophils Absolute Auto 0.1 K/mm3 (0.0-0.1); Basophils Percent Auto 0.9 % (0.2-1.2); Eosinophils Absolute Auto 0.5 K/mm3 (0-0.3); Eosinophils Percent Auto 6.3 % (0-4.4); Hematocrit 30.8 % (37.0-47.0); Hemoglobin 9.3 g/dL (12.0-15.0); Immature Granulocyte Absolute 0.03 K/mm3 (0.00-0.031); Immature Granulocyte Percent A 0.4 % (0-0.5); Lymphocytes Percent Auto 8.9 % (18.3-44.2); Mean Corpuscular HGB Conc 30.2 g/dl (32-36); Mean Corpuscular Hemoglobin 30.5 pg (26-34); Mean Platelet Volume 10.7 fl (7.4-10.4); Monocytes Absolute Auto 0.7 K/mm3 (0.1-0.6); Monocytes Percent Auto 8.5 % (2.6-8.5); Neutrophils Absolute Auto 5.9 K/mm3 (1.3-6.7); Platelet Count Result 156 k/mm3 (150-375); Red Blood Count 3.05 M/mm3 (4.2-5.4); Red Cell Distribution Width 17.2 % (11.5-14.5); White Blood Count 7.9 K/mm3 (4.5-10.0)
[2021-07-06 07:23] LABS: Alanine Aminotransferase 7 U/L (6-35); Albumin Level 3.1 g/dL (3.5-5.1); Alkaline Phosphatase 58 U/L (38-126); Anion Gap 13 mmol/L (8-16); Aspartate Amino Transferase 17 U/L (14-36); Bilirubin,Total 0.6 mg/dL (0.2-1.3); Blood Urea Nitrogen 44 mg/dL (7-17); Carbon Dioxide 20 mmol/L (22-30); Chloride 100 mmol/L (98-107); Estimated CRCL calculation 12 ml/min; Estimated Glomerular Filt Rate 14; Glucose 361 mg/dL (65-110); Phosphorus 5.4 mg/dL (2.5-4.5); Potassium 4.7 mmol/L (3.4-5.0); Sodium 133 mmol/L (137-145)
[2021-07-06 07:36] LABS: Glucose Point of Care 368 mg/dl (65-105)
[2021-07-06] MEDS: INSULIN ASPART (*BKC) 100 UNITS/ML SUB-Q ×6 (08:24→17:05)
[2021-07-06] MEDS: ISOSORBIDE DINITRATE 20 MG TABLET 40 MG PO ×3 (08:25→17:05)
[2021-07-06] MEDS: CHOLECALCIFEROL 1,000 UNITS TABLET 5000 UNITS PO (08:25)
[2021-07-06] MEDS: BUMETANIDE INJ 2.5 MG/10 ML VIAL 2 MG IV PUSH ×2 (08:25→17:05)
[2021-07-06] MEDS: amLODIPine BESYLATE 5 MG TABLET 10 MG PO (08:27)
[2021-07-06] MEDS: HEPARIN SODIUM 5,000 UNITS/ML VIAL 5000 UNITS SUB-Q (08:27)
[2021-07-06] MEDS: carvediloL 25 MG TABLET PO ×2 (08:27→20:14)
[2021-07-06] MEDS: hydrALAZINE HCL 25 MG TABLET 75 MG PO ×3 (08:28→17:05)
[2021-07-06] MEDS: TOLNAFTATE 1% POWDER 45 GM BTL 1 APPLIC TOPICAL ×3 (08:28→17:05)
[2021-07-06] MEDS: MULTIVITAMINS THERAPEUTIC TAB (*BKC) 1 TABLET PO (08:28)
[2021-07-06] MEDS: PANTOPRAZOLE 40 MG TABLET PO (08:28)
--- NOTE | 2021-07-06 11:08 | PCOTNOTE ---
Attempted OT evaluation, patient declined at this time, reporting to worn out from working with physical therapy. Will follow and attempt at later time.
[2021-07-06 11:31] LABS: Glucose Point of Care 370 mg/dl (65-105)
--- NOTE | 2021-07-06 11:45 | PM.IMPN ---
Progress Note: A&P Assessment and Plan (1) Volume overload: Code(s): E87.70 - Fluid overload, unspecified Status: Acute Assessment and Plan: Secondary to heart failure, valvular heart disease, chronic kidney disease. Volume status per Nephrology. (2) Congestive heart failure: Code(s): I50.9 - Heart failure, unspecified Status: Acute Assessment and Plan: Plan is as detailed above. (3) Valvular heart disease: Code(s): I38 - Endocarditis, valve unspecified Status: Acute Assessment and Plan: Moderate to severe aortic stenosis and significant mitral valve regurgitation. Previously slated for surgical aortic valve replacement and mitral repair and/or replacement. Reportedly sees CTS at [facility] though it does not sound as though she has had follow-up recently. (4) Type 2 diabetes mellitus with hyperglycemia: Code(s): E11.65 - Type 2 diabetes mellitus with hyperglycemia Status: Acute Assessment and Plan: Monitor blood sugar, sliding scale insulin (5) Anemia of chronic disease: Code(s): D63.8 - Anemia in other chronic diseases classified elsewhere Status: Acute Assessment and Plan: Baseline hemoglobin seems to range between 7.5 and 8.5. Starting Epogen per Dr. Guerra. (6) Chronic kidney disease, stage IV (severe): Code(s): N18.4 - Chronic kidney disease, stage 4 (severe) Status: Chronic Assessment and Plan: Creatinine is worsening. Nephrology on board (7) Chronic respiratory failure with hypoxia, on home oxygen therapy: Code(s): J96.11 - Chronic respiratory failure with hypoxia; Z99.81 - Dependence on supplemental oxygen Status: Acute Assessment and Plan: At home oxygen requirement. Subjective Date/time seen: 07/06/21 11:45 Reports some shortness of breath but improved Exam Narrative: General: Chronically ill female sitting up in bed in no distress. Weight: 67 kg. BMI: 27.0. HEENT: PERRL, EOMI. Sclerae anicteric. Oral mucosa moist. Neck: Supple. Positive jugular venous distension. Cardiac murmur radiating to the carotids bilaterally. Respiratory: Mild conversational dyspnea though she appears in no acute respiratory distress. She is speaking in 5 to 6 word sentences. Crackles heard at the bases. Cardiovascular: Regular rate and rhythm with S1-S2. Loud systolic murmurs heard at the right upper sternal border and at the apex, radiating to the carotids and axilla respectively. Gastrointestinal: Abdomen is soft, nontender, and nondistended with positive bowel sounds. Skin: Warm and dry. Generalized pallor. Extremities: No cyanosis or clubbing. Arms and legs are edematous. Tender to palpation in the calves, right greater than left. Radial and pedal pulses intact. Waffle boots in place. Neurological: Alert and oriented. Cranial nerves 2-12 are grossly intact. No gross focal deficits to casual conversation. Psychiatric: Pleasant and cooperative with appropriate and affect. Objective Data Vital Signs Vital Signs: Vital Signs - 24 hr 07/05/21 12:00 07/05/21 12:04 07/05/21 12:06 Temperature Pulse Rate 77 79 Respiratory Rate 24 H Blood Pressure 147/64 H Pulse Oximetry 94 95 07/05/21 14:00 07/05/21 16:00 07/05/21 20:00 Temperature 98.8 F 98.4 F Pulse Rate 77 65 76 Respiratory Rate 20 20 Blood Pressure 159/60 H 161/64 H Pulse Oximetry 100 07/05/21 22:05 07/05/21 23:51 07/06/21 00:00 Temperature Pulse Rate 69 63 Respiratory Rate Blood Pressure Pulse Oximetry 94 07/06/21 04:00 07/06/21 05:36 07/06/21 08:00 Temperature 99.1 F Pulse Rate 69 73 70 Respiratory Rate 18 Blood Pressure 157/72 H Pulse Oximetry 96 94 07/06/21 08:27 07/06/21 08:45 Temperature Pulse Rate 74 Respiratory Rate Blood Pressure Pulse Oximetry 94 Intake/Output Intake/Output: Intake & Output 07/03
--- NOTE | 2021-07-06 12:14 | PCOTNOTE ---
Attempted OT evaluation, patient is currently off the unit for a test, will follow and attempt at later time.
[2021-07-06] MEDS: EPOETIN ALFA-EPBX 10,000 UNITS/ML VIAL 10000 UNITS SUB-Q (13:29)
--- NOTE | 2021-07-06 15:09 | P.PNNP_ITS ---
Progress Note: A&P Assessment and Plan (1) Chronic kidney disease, stage IV (severe): Code(s): N18.4 - Chronic kidney disease, stage 4 (severe) Status: Chronic Assessment and Plan: * baseline creatinine averages around 2.0 - 2.7mg/dl * thought to be secondary to her HTN, DM, cardiac/vascular disease and need for diuretics to maintain her volume status (leading to chronic prerenal azotemia) * however, it would seem that we have to accept a higher creatinine in an effort to achieve euvolemia * continue to push fluid removal with IV diuretics * follow trend of repeat labs and UOP * she is at risk for needing REHABILITATION SERVICES AIDE/dialysis if diuretics fail to improve volume status -- time will tell (2) Acute and chronic respiratory failure with hypoxia: Code(s): J96.21 - Acute and chronic respiratory failure with hypoxia Status: Acute Assessment and Plan: * secondary to CHF and volume overload * follow respiratory status with ongoing diuresis (3) CHF (congestive heart failure): Qualifiers: Heart failure chronicity: acute on chronic Heart failure type: unspecified Qualified Code(s): I50.9 - Heart failure, unspecified Code(s): I50.9 - Heart failure, unspecified Status: Chronic Assessment and Plan: * on IV diuretics * follow I/Os, daily weights, and respiratory status * usually follows with Dr. Ritter (4) HTN (hypertension): Qualifiers: Hypertension type: essential hypertension Qualified Code(s): I10 - Essential (primary) hypertension Code(s): I10 - Essential (primary) hypertension Status: Chronic Assessment and Plan: * elevated * however, would follow trend with ongoing diuresis (as this may help bring this down) * follow hemodynamics (5) Anemia: Code(s): D64.9 - Anemia, unspecified Status: Chronic Assessment and Plan: * due to CKD and acute illness * adequate iron stores by anemia studies * on Epogen 3x/week * follow trend of H/H (6) Diabetes: Qualifiers: Diabetes mellitus complication status: with other specified complication Diabetes mellitus fpc insulin use: with fpc use Diabetes mellitus type: type 2 Qualified Code(s): E11.69 - Type 2 diabetes mellitus with other specified complication; Z79.4 - manager terminal (current) use of insulin Code(s): E11.9 - Type 2 diabetes mellitus without complications Status: Chronic Assessment and Plan: * follow accuchecks * on Lantus and SSI Long and extensive discussion (> 20 minutes) with patient and daughter at bedside regarding the above issues including the possibility of REHABILITATION SERVICES AIDE/dialysis should conservative therapy fail to improve her volume status and shortness of breath. Will continue to follow. Subjective Date/time seen: 07/06/21 15:09 Chart reviewed - assuming care from Dr. Guerra; states that her shortness of breath seems to be doing better; renal function worse in the setting of diure sis; noted findings of lower extremity DVT by imaging today so started on eliquis; daughter at bedside and we discussed the situation. Exam Narrative: General: somehwat ill appearing female in NAD Heart: normal S1 and S2; no rub Lungs: bibasilar crackles Abdomen: soft, nontender, nondistended, positive bowel sounds Extremities: no cyanosis or clubbing; 2+ edema Skin: warm and dry Objective Data Vital Signs Vital Signs: Vital Signs
--- NOTE | 2021-07-06 15:09 | PM.PNNEP ---
Progress Note: A&P Assessment and Plan (1) Chronic kidney disease, stage IV (severe): Code(s): N18.4 - Chronic kidney disease, stage 4 (severe) Status: Chronic Assessment and Plan: baseline creatinine averages around 2.0 - 2.7mg/dl thought to be secondary to her HTN, DM, cardiac/vascular disease and need for diuretics to maintain her volume status (leading to chronic prerenal azotemia) however, it would seem that we have to accept a higher creatinine in an effort to achieve euvolemia continue to push fluid removal with IV diuretics follow trend of repeat labs and UOP she is at risk for needing NEURO UROLOGIST/dialysis if diuretics fail to improve volume status -- time will tell (2) Acute and chronic respiratory failure with hypoxia: Code(s): J96.21 - Acute and chronic respiratory failure with hypoxia Status: Acute Assessment and Plan: secondary to CHF and volume overload follow respiratory status with ongoing diuresis (3) CHF (congestive heart failure): Qualifiers: Heart failure chronicity: acute on chronic Heart failure type: unspecified Qualified Code(s): I50.9 - Heart failure, unspecified Code(s): I50.9 - Heart failure, unspecified Status: Chronic Assessment and Plan: on IV diuretics follow I/Os, daily weights, and respiratory status usually follows with Dr. Ritter (4) HTN (hypertension): Qualifiers: Hypertension type: essential hypertension Qualified Code(s): I10 - Essential (primary) hypertension Code(s): I10 - Essential (primary) hypertension Status: Chronic Assessment and Plan: elevated however, would follow trend with ongoing diuresis (as this may help bring this down) follow hemodynamics (5) Anemia: Code(s): D64.9 - Anemia, unspecified Status: Chronic Assessment and Plan: due to CKD and acute illness adequate iron stores by anemia studies on Epogen 3x/week follow trend of H/H (6) Diabetes: Qualifiers: Diabetes mellitus complication status: with other specified complication 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 Will continue to follow. Subjective Date/time seen: 07/06/21 15:09 Chart reviewed - assuming care from Dr. Guerra; states that her shortness of breath seems to be doing better; renal function worse in the setting of diuresis; noted findings of lower extremity DVT by imaging today so started on eliquis; daughter at bedside and we discussed the situation. Exam Narrative: General: somehwat ill appearing female in NAD Heart: normal S1 and S2; no rub Lungs: bibasilar crackles Abdomen: soft, nontender, nondistended, positive bowel sounds Extremities: no cyanosis or clubbing; 2+ edema Skin: warm and dry Objective Data Vital Signs Vital Signs: Vital Signs Temp Pulse Resp BP Pulse Ox 07/06/21 13:49 36.4 C 71 22 H 142/53 H 96 07/06/21 12:00 70 07/06/21 08:45 94 07/06/21 08:27 74 07/06/21 08:00 70 94 07/06/21 05:36 37.3 C 73 18 157/72 H 96 07/06/21 04:00 69 07/06/21 00:00 63 07/05/21 23:51 94 07/05/21 22:05 69 07/05/21 20:00 36.9 C 76 20 161/64 H 100 Intake/Output Intake/Output: Intake & Output 07/03/21 07/04/21 07/05/21 07/06/21 23:59 23:59 23:59 23:59 Intake Total 720 700
[2021-07-06 16:14] LABS: Glucose Point of Care 300 mg/dl (65-105)
[2021-07-06] MEDS: ATORVASTATIN 40 MG TABLET PO (17:05)
[2021-07-06] MEDS: APIXABAN 5 MG TABLET PO (20:14)
[2021-07-06] MEDS: INSULIN GLARGINE (*BKC) 100 UNITS/ML 10 UNITS SUB-Q (20:15)
[2021-07-06] MEDS: ASPIRIN 81 MG ENTERIC TABLET PO (20:15)
[2021-07-06] MEDS: MIRTAZAPINE 15 MG TABLET PO (20:15)
[2021-07-06 20:38] LABS: Glucose Point of Care 278 mg/dl (65-105)
[2021-07-07] VITALS (13 sets, daily range): BP systolic 138–165; BP diastolic 52–66; PULSE 61–80; RESP 15–18; TEMP 36.2–36.8; O2SAT 94–97
[2021-07-07 00:18] LABS: Glucose Point of Care 173 mg/dl (65-105)
[2021-07-07 07:54] LABS: Glucose Point of Care 77 mg/dl (65-105)
[2021-07-07] MEDS: BUMETANIDE INJ 2.5 MG/10 ML VIAL 2 MG IV PUSH ×2 (08:12→18:08)
[2021-07-07] MEDS: CHOLECALCIFEROL 1,000 UNITS TABLET 5000 UNITS PO (08:12)
[2021-07-07] MEDS: ISOSORBIDE DINITRATE 20 MG TABLET 40 MG PO ×3 (08:12→18:09)
[2021-07-07] MEDS: hydrALAZINE HCL 25 MG TABLET 75 MG PO ×3 (08:13→18:08)
[2021-07-07] MEDS: ACETAMINOPHEN 500 MG TABLET PO (08:13)
[2021-07-07] MEDS: APIXABAN 5 MG TABLET PO ×2 (08:13→22:06)
[2021-07-07] MEDS: MULTIVITAMINS THERAPEUTIC TAB (*BKC) 1 TABLET PO (08:14)
[2021-07-07] MEDS: amLODIPine BESYLATE 5 MG TABLET 10 MG PO (08:14)
[2021-07-07] MEDS: carvediloL 25 MG TABLET PO ×2 (08:14→22:06)
--- NOTE | 2021-07-07 08:14 | P.PNNP_ITS ---
Progress Note: A&P Assessment and Plan (1) Chronic kidney disease, stage IV (severe): Code(s): N18.4 - Chronic kidney disease, stage 4 (severe) Status: Chronic Assessment and Plan: * baseline creatinine averages around 2.0 - 2.7mg/dl * thought to be secondary to her HTN, DM, cardiac/vascular disease and need for diuretics to maintain her volume status (leading to chronic prerenal azotemia) * however, it would seem that we have to accept a higher creatinine in an effort to achieve euvolemia * getting bumex 2 bid. * I/O not being measured very well. I believe she has incontinence. * exam looks better. * director channel still wet on 07/05. will order another for tomorow. * she has a DVT as well. she is on eliquis. (2) Acute and chronic respiratory failure with hypoxia: Code(s): J96.21 - Acute and chronic respiratory failure with hypoxia Status: Acute Assessment and Plan: * secondary to CHF and volume overload * follow respiratory status with ongoing diuresis * continue bumex. (3) CHF (congestive heart failure): Qualifiers: Heart failure chronicity: acute on chronic Heart failure type: unspecified Qualified Code(s): I50.9 - Heart failure, unspecified Code(s): I50.9 - Heart failure, unspecified Status: Chronic Assessment and Plan: * on IV diuretics * follow I/Os, daily weights, and respiratory status * usually follows with Dr. Ritter (4) HTN (hypertension): Qualifiers: Hypertension type: essential hypertension Qualified Code(s): I10 - Essential (primary) hypertension Code(s): I10 - Essential (primary) hypertension Status: Chronic Assessment and Plan: * elevated * however, would follow trend with ongoing diuresis (as this may help bring this down) * give it another day since volume status looks better. 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 use Diabetes mellitus complication status: with other specified complication Qualified Code(s): E11.69 - Type 2 diabetes mellitus with other specified complication; Z79.4 - extermination inspector (current) use of insulin Code(s): E11.9 - Type 2 diabetes mellitus without complications Status: Chronic Assessment and Plan: * follow accuchecks * on Lantus and SSI Long and extensive discussion (> 20 minutes) with patient and daughter at bedside regarding the above issues including the possibility of DEPUTY BRAND INSPECTOR/dialysis should conservative therapy fail to improve her volume status and shortness of breath. Will continue to follow. Subjective Date/time seen: 07/07/21 08:14 Interval history: alert. less sob edema is a little better. Review of Systems Cardiovascular: Cardiovascular: Reports no additional cardiovascular complaints Respiratory: Respiratory: Reports no additional respiratory complaints Gastrointestinal: Gastrointestinal: Reports no additional gastrointestinal complaints Genitourinary: Genitourinary: Reports no additional female genitourinary complaints Exam Narrative: WDWN in NAD skin no rash or sq nodules head ncat lungs clear cor reg no rub, 2/6 amilcar abd BS+ nontender and soft
--- NOTE | 2021-07-07 08:14 | PM.PNNEP ---
Progress Note: A&P Assessment and Plan (1) Chronic kidney disease, stage IV (severe): Code(s): N18.4 - Chronic kidney disease, stage 4 (severe) Status: Chronic Assessment and Plan: baseline creatinine averages around 2.0 - 2.7mg/dl thought to be secondary to her HTN, DM, cardiac/vascular disease and need for diuretics to maintain her volume status (leading to chronic prerenal azotemia) however, it would seem that we have to accept a higher creatinine in an effort to achieve euvolemia getting bumex 2 bid. I/O not being measured very well. I believe she has incontinence. exam looks better. 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 will order another for tomorow. she has a DVT as well. she is on eliquis. (2) Acute and chronic respiratory failure with hypoxia: Code(s): J96.21 - Acute and chronic respiratory failure with hypoxia Status: Acute Assessment and Plan: secondary to CHF and volume overload follow respiratory status with ongoing diuresis continue bumex. (3) CHF (congestive heart failure): Qualifiers: Heart failure chronicity: acute on chronic Heart failure type: unspecified Qualified Code(s): I50.9 - Heart failure, unspecified Code(s): I50.9 - Heart failure, unspecified Status: Chronic Assessment and Plan: on IV diuretics follow I/Os, daily weights, and respiratory status usually follows with Dr. Ritter (4) HTN (hypertension): Qualifiers: Hypertension type: essential hypertension Qualified Code(s): I10 - Essential (primary) hypertension Code(s): I10 - Essential (primary) hypertension Status: Chronic Assessment and Plan: elevated however, would follow trend with ongoing diuresis (as this may help bring this down) give it another day since volume status looks better. 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 Will continue to follow. Subjective Date/time seen: 07/07/21 08:14 Interval history: alert. less sob edema is a little better. Review of Systems Cardiovascular: Cardiovascular: Reports no additional cardiovascular complaints Respiratory: Respiratory: Reports no additional respiratory complaints Gastrointestinal: Gastrointestinal: Reports no additional gastrointestinal complaints Genitourinary: Genitourinary: Reports no additional female genitourinary complaints Exam Narrative: WDWN in NAD skin no rash or sq nodules head ncat lungs clear cor reg no rub, 2/6 amilcar abd BS+ nontender and soft ext no edema. Objective Data Vital Signs Vital Signs: Vital Signs - 24 hr 07/06/21 08:27 07/06/21 08:45 07/06/21 12:00 Temperature Pulse Rate 74 70 Respiratory Rate Blood Pressure Pulse Oximetry 94 Oxygen Delivery Nasal Cannula Oxygen Flow Rate 2 07/06/21 12:39 07/06/21 13:49 07/06/21 16:00 Temperature 36.4 C Pulse Rate 71 70 Respiratory Rate 22 H Blood Pressure 142/53 H Pulse Oximetry 96 Oxygen Delivery Nasal Cannula Oxygen Flow Rate 2
[2021-07-07] MEDS: PANTOPRAZOLE 40 MG TABLET PO (08:15)
[2021-07-07] MEDS: TOLNAFTATE 1% POWDER 45 GM BTL 1 APPLIC TOPICAL ×3 (08:15→18:08)
[2021-07-07 08:27] LABS: Albumin Level 2.9 g/dL (3.5-5.1); Anion Gap 6 mmol/L (8-16); Blood Urea Nitrogen 51 mg/dL (7-17); Calcium 8.1 mg/dL (8.4-10.2); Carbon Dioxide 27 mmol/L (22-30); Chloride 100 mmol/L (98-107); Estimated CRCL calculation 12 ml/min; Estimated Glomerular Filt Rate 14; Glucose 73 mg/dL (65-110); Phosphorus 5.2 mg/dL (2.5-4.5); Potassium 4.1 mmol/L (3.4-5.0); Sodium 133 mmol/L (137-145)
--- NOTE | 2021-07-07 11:32 | PM.IMPN ---
Progress Note: A&P Assessment and Plan (1) Volume overload: Code(s): E87.70 - Fluid overload, unspecified Status: Acute Assessment and Plan: volume status per Nephrology. (2) Congestive heart failure: Code(s): I50.9 - Heart failure, unspecified Status: Acute Assessment and Plan: Continue diuretic therapy. Monitor electrolytes kidney function. (3) Valvular heart disease: Code(s): I38 - Endocarditis, valve unspecified Status: Acute Assessment and Plan: History of (4) Type 2 diabetes mellitus with hyperglycemia: Code(s): E11.65 - Type 2 diabetes mellitus with hyperglycemia Status: Acute Assessment and Plan: monitor blood sugars give sliding scale insulin as needed (5) Anemia of chronic disease: Code(s): D63.8 - Anemia in other chronic diseases classified elsewhere Status: Acute Assessment and Plan: transfuse as needed (6) Chronic kidney disease, stage IV (severe): Code(s): N18.4 - Chronic kidney disease, stage 4 (severe) Status: Chronic Assessment and Plan: nephrology following. (7) Chronic respiratory failure with hypoxia, on home oxygen therapy: Code(s): J96.11 - Chronic respiratory failure with hypoxia; Z99.81 - Dependence on supplemental oxygen Status: Acute Assessment and Plan: Secondary to valvular disease and CHF. Patient iis not surgical intervention. Continue diuretic and volume status monitoring. Subjective Date/time seen: 07/07/21 11:32 Patient reports her breathing is a little bit better but still not quite back to baseline. Significant shortness of breath With activity Review of Systems Review of Systems: 10 point ROS negative except as stated in HPI / Subjective Objective Data Vital Signs Vital Signs: Vital Signs - 24 hr 07/06/21 12:00 07/06/21 12:39 07/06/21 13:49 Temperature 97.6 F Pulse Rate 70 71 Respiratory Rate 22 H Blood Pressure 142/53 H Pulse Oximetry 96 Oxygen Delivery Nasal Cannula Oxygen Flow Rate 2 07/06/21 16:00 07/06/21 20:14 07/06/21 20:00 Temperature Pulse Rate 70 63 71 Respiratory Rate Blood Pressure Pulse Oximetry Oxygen Delivery Oxygen Flow Rate 07/06/21 21:49 07/07/21 00:00 07/07/21 04:00 Temperature 99.4 F Pulse Rate 74 61 61 Respiratory Rate 18 Blood Pressure 154/63 H Pulse Oximetry 98 Oxygen Delivery Oxygen Flow Rate 07/07/21 06:00 07/07/21 08:14 07/07/21 08:00 Temperature 97.5 F L Pulse Rate 66 77 65 Respiratory Rate 18 Blood Pressure 165/64 H Pulse Oximetry 97 Oxygen Delivery Oxygen Flow Rate 07/07/21 08:00 Temperature Pulse Rate Respiratory Rate Blood Pressure Pulse Oximetry 96 Oxygen Delivery Nasal Cannula Oxygen Flow Rate 3 Intake/Output Intake/Output: Intake & Output 07/04/21 07/05/21 07/06/21 07/07/21 23:59 23:59 23:59 23:59 Intake Total 720 1490 290 Output Total 1 1 Balance 719 1490 289 Meds/Results Medications: Active Medications Generic Name Dose Route Start Last Admin Trade Name Freq PRN Reason Stop Dose Admin Acetaminophen 500 mg 07/05/21 21:12 07/07/21 08:13 Acetaminophen 500 Mg Tablet PO 500 mg Q6H PRN Administration Pain Albuterol 2 puff 07/05/21 21:12 Albuterol Sulfate (*Sp) Aerosol 1 Puff INHALATION QID PRN Shortness Of Breath Amlodipine Besylate 10 mg 07/06/21 09:00 07/07/21 08:14 Amlodipine Besylate 5 Mg Tablet PO 10 mg DAILY LIS Administration Apixaban 5 mg 07/06/21 21:00 07/07/21 08:13 Apixaban 5 Mg Tablet PO 5 mg Q12HR LIS Administration Aspirin 81 mg 07/06/21 21:00 07/06/21 20:15 Aspirin 81 Mg Enteric Tablet PO 81 mg HS LIS Administration Atorvastatin Calcium 40 mg 07/06/21 18:00 07/06/21 17:05 Atorvastatin 40 Mg Tablet PO 40 mg QPM LIS Administration Bisacodyl 5 mg 07/05/21 21:12
[2021-07-07 12:02] LABS: Glucose Point of Care 133 mg/dl (65-105)
[2021-07-07 13:50] LABS: Glucose Point of Care 158 mg/dl (65-105)
--- NOTE | 2021-07-07 15:14 | PCPTNOTE ---
The patient treatment was not able to be completed today due. DVT reported in the R [facility] and anticoagulation medication started. PT will hold therapy today and resume tomorrow after 24 hours of anticoagulation therapy. Will plan to continue treatment per plan of care.
[2021-07-07 16:08] LABS: Glucose Point of Care 217 mg/dl (65-105)
[2021-07-07] MEDS: ATORVASTATIN 40 MG TABLET PO (18:10)
[2021-07-07] MEDS: INSULIN ASPART (*BKC) 100 UNITS/ML SUB-Q ×2 (18:11)
[2021-07-07 20:56] LABS: Glucose Point of Care 282 mg/dl (65-105)
[2021-07-07] MEDS: MIRTAZAPINE 15 MG TABLET PO (22:06)
[2021-07-07] MEDS: ASPIRIN 81 MG ENTERIC TABLET PO (22:07)
[2021-07-07] MEDS: INSULIN GLARGINE (*BKC) 100 UNITS/ML 10 UNITS SUB-Q (22:07)
[2021-07-08] VITALS (14 sets, daily range): BP systolic 135–156; BP diastolic 59–79; PULSE 63–75; RESP 16–21; TEMP 36.2–36.7; O2SAT 92–98
[2021-07-08 00:07] LABS: Glucose Point of Care 238 mg/dl (65-105)
[2021-07-08 03:53] LABS: Glucose Point of Care 160 mg/dl (65-105)
[2021-07-08 06:20] LABS: Albumin Level 2.9 g/dL (3.5-5.1); Anion Gap 6 mmol/L (8-16); Blood Urea Nitrogen 51 mg/dL (7-17); Calcium 8.1 mg/dL (8.4-10.2); Carbon Dioxide 27 mmol/L (22-30); Chloride 101 mmol/L (98-107); Estimated CRCL calculation 12 ml/min; Estimated Glomerular Filt Rate 14; Glucose 129 mg/dL (65-110); Phosphorus 5.4 mg/dL (2.5-4.5); Potassium 4.3 mmol/L (3.4-5.0); Sodium 134 mmol/L (137-145)
[2021-07-08 08:26] LABS: Glucose Point of Care 125 mg/dl (65-105)
[2021-07-08] MEDS: INSULIN ASPART (*BKC) 100 UNITS/ML SUB-Q ×3 (08:58→17:20)
[2021-07-08] MEDS: TOLNAFTATE 1% POWDER 45 GM BTL 1 APPLIC TOPICAL ×3 (09:01→16:44)
[2021-07-08] MEDS: ISOSORBIDE DINITRATE 20 MG TABLET 40 MG PO ×3 (09:02→16:44)
[2021-07-08] MEDS: CHOLECALCIFEROL 1,000 UNITS TABLET 5000 UNITS PO (09:02)
[2021-07-08] MEDS: hydrALAZINE HCL 25 MG TABLET 75 MG PO ×3 (09:02→16:44)
[2021-07-08] MEDS: APIXABAN 5 MG TABLET PO ×2 (09:03→20:45)
[2021-07-08] MEDS: carvediloL 25 MG TABLET PO ×2 (09:03→20:46)
[2021-07-08] MEDS: MULTIVITAMINS THERAPEUTIC TAB (*BKC) 1 TABLET PO (09:03)
[2021-07-08] MEDS: amLODIPine BESYLATE 5 MG TABLET 10 MG PO (09:03)
[2021-07-08] MEDS: PANTOPRAZOLE 40 MG TABLET PO (09:03)
[2021-07-08] MEDS: BUMETANIDE INJ 2.5 MG/10 ML VIAL 2 MG IV PUSH ×2 (09:04→16:44)
--- NOTE | 2021-07-08 12:15 | PCOTNOTE ---
The patient treatment was not able to be completed today due to DVT reported in the R LE and anticoagulation medication started 07/07. OT will hold therapy today and resume after 24 hours of anticoagulation therapy. (07/08 after 16:00). Will plan to continue treatment per plan of care.
--- NOTE | 2021-07-08 12:41 | P.PNNP_ITS ---
Progress Note: A&P Assessment and Plan (1) Chronic kidney disease, stage IV (severe): Code(s): N18.4 - Chronic kidney disease, stage 4 (severe) Status: Chronic Assessment and Plan: * baseline creatinine averages around 2.0 - 2.7mg/dl * thought to be secondary to her HTN, DM, cardiac/vascular disease and need for diuretics to maintain her volume status (leading to chronic prerenal azotemia) * however, it would seem that we have to accept a higher creatinine in an effort to achieve euvolemia * tolerating IV bumex 2mg bid. * I/O not being measured very well due to urinary incontinence * follow repeat CXR findings (2) Acute and chronic respiratory failure with hypoxia: Code(s): J96.21 - Acute and chronic respiratory failure with hypoxia Status: Acute Assessment and Plan: * secondary to CHF and volume overload * follow respiratory status with ongoing diuresis * continue bumex for now (3) CHF (congestive heart failure): Qualifiers: Heart failure chronicity: acute on chronic Heart failure type: unspecified Qualified Code(s): I50.9 - Heart failure, unspecified Code(s): I50.9 - Heart failure, unspecified Status: Chronic Assessment and Plan: * on IV diuretics * follow I/Os, daily weights, and respiratory status * usually follows with Dr. Ritter (4) HTN (hypertension): Qualifiers: Hypertension type: essential hypertension Qualified Code(s): I10 - Essential (primary) hypertension Code(s): I10 - Essential (primary) hypertension Status: Chronic Assessment and Plan: * elevated * however, would follow trend with ongoing diuresis (as this may help bring this down) * follow for another day or two for now (5) Anemia: Code(s): D64.9 - Anemia, unspecified Status: Chronic Assessment and Plan: * due to CKD and acute illness * adequate iron stores by anemia studies * on Epogen 3x/week * follow trend of H/H (6) Diabetes: Qualifiers: Diabetes mellitus complication status: with other specified complication Diabetes mellitus long-term insulin use: with long-term use Diabetes mellitus type: type 2 Qualified Code(s): E11.69 - Type 2 diabetes mellitus with other specified complication; Z79.4 - MCC (current) use of insulin Code(s): E11.9 - Type 2 diabetes mellitus without complications Status: Chronic Assessment and Plan: * follow accuchecks * on Lantus and SSI Will continue to follow. Subjective Date/time seen: 07/08/21 12:41 Patient's shortness of breath appears to be improving with ongoing diuresis with relative stability in renal function; no other acute issues voiced at the time of my visit; no issues/events overnight or earlier this morning. Exam Narrative: General: WD/WN male/female in NAD Heart: normal S1 and S2; no rub Lungs: clear anteriorly; decreased at bases Abdomen: soft, nontender, nondistended, positive bowel sounds Extremities: no cyanosis or clubbing; trace edema Skin: warm and dry Objective Data Vital Signs Vital Signs: Vital Signs Temp Pulse Resp BP Pulse Ox O2 Del Method O2 Flow Rate 07/08/21 12:00 68 07/08/21 08:00 92 Nasal Cannula 2 07/08/21 08:00 65 07/08/21 09:03 69 07/08/21 08:23 94 Nasal Cannula 2 07/08/21 05:51 36.2 C L 67
--- NOTE | 2021-07-08 12:41 | PM.PNNEP ---
Progress Note: A&P Assessment and Plan (1) Chronic kidney disease, stage IV (severe): Code(s): N18.4 - Chronic kidney disease, stage 4 (severe) Status: Chronic Assessment and Plan: baseline creatinine averages around 2.0 - 2.7mg/dl thought to be secondary to her HTN, DM, cardiac/vascular disease and need for diuretics to maintain her volume status (leading to chronic prerenal azotemia) however, it would seem that we have to accept a higher creatinine in an effort to achieve euvolemia tolerating IV bumex 2mg bid. I/O not being measured very well due to urinary incontinence follow repeat CXR findings (2) Acute and chronic respiratory failure with hypoxia: Code(s): J96.21 - Acute and chronic respiratory failure with hypoxia Status: Acute Assessment and Plan: secondary to CHF and volume overload follow respiratory status with ongoing diuresis continue bumex for now (3) CHF (congestive heart failure): Qualifiers: Heart failure chronicity: acute on chronic Heart failure type: unspecified Qualified Code(s): I50.9 - Heart failure, unspecified Code(s): I50.9 - Heart failure, unspecified Status: Chronic Assessment and Plan: on IV diuretics follow I/Os, daily weights, and respiratory status usually follows with Dr. Ritter (4) HTN (hypertension): Qualifiers: Hypertension type: essential hypertension Qualified Code(s): I10 - Essential (primary) hypertension Code(s): I10 - Essential (primary) hypertension Status: Chronic Assessment and Plan: elevated however, would follow trend with ongoing diuresis (as this may help bring this down) follow for another day or two for now (5) Anemia: Code(s): D64.9 - Anemia, unspecified Status: Chronic Assessment and Plan: due to CKD and acute illness adequate iron stores by anemia studies on Epogen 3x/week follow trend of H/H (6) Diabetes: Qualifiers: Diabetes mellitus complication status: with other specified complication 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 Subjective Date/time seen: 07/08/21 12:41 Patient's shortness of breath appears to be improving with ongoing diuresis with relative stability in renal function; no other acute issues voiced at the time of my visit; no issues/events overnight or earlier this morning. Exam Narrative: General: WD/WN male/female in NAD Heart: normal S1 and S2; no rub Lungs: clear anteriorly; decreased at bases Abdomen: soft, nontender, nondistended, positive bowel sounds Extremities: no cyanosis or clubbing; trace edema Skin: warm and dry Objective Data Vital Signs Vital Signs: Vital Signs Temp Pulse Resp BP Pulse Ox O2 Del Method O2 Flow Rate 07/08/21 12:00 68 07/08/21 08:00 92 Nasal Cannula 2 07/08/21 08:00 65 07/08/21 09:03 69 07/08/21 08:23 94 Nasal Cannula 2 07/08/21 05:51 36.2 C L 67 16 156/79 H 98 07/08/21 04:00 63 07/07/21 23:05 62 15 96 Autopap 07/08/21 00:00 67 07/07/21 20:00 78 07/07/21 22:06 72 07/07/21 22:00 36.2 C L 74 18 149/66 H 95 07/07/21 16:00 80 Intake/Output Intake/Output: Intake & Output 07/05/21 07/06/21 07/07/21 07/08/21 23:59 23:59 23:59 23:59 Intake Total 720 1490 980 460 Output Total 1 1 Balance 719 1490 979 460 Meds/Results Medications: Active Medications Generic Name Dose Route Start Last Admin Trade Name Freq PRN Reason Stop Dose Admin Acetamino
[2021-07-08 12:42] LABS: Glucose Point of Care 107 mg/dl (65-105)
[2021-07-08] MEDS: EPOETIN ALFA-EPBX 10,000 UNITS/ML VIAL 10000 UNITS SUB-Q (14:01)
--- NOTE | 2021-07-08 15:54 | PM.IMPN ---
Progress Note: A&P Assessment and Plan (1) Volume overload: Code(s): E87.70 - Fluid overload, unspecified Status: Acute Assessment and Plan: volume status per Nephrology. 07/08/2021 interval history: patient is 70-year-old female with history of preserved LV function with ejection fraction of 55 % and grade 2 diastolic dysfunction, patient presented with complaint of shortness breath, seen by Nephrology suspect volume overload and patient is being diuresed with Bumex, patient clinical symptoms are improved patient not a short of breath as pain she arrived will continue present management, will have PT OT evaluate the patient and further recommendation to follow. (2) Congestive heart failure: Code(s): I50.9 - Heart failure, unspecified Status: Acute Assessment and Plan: Continue diuretic therapy. Monitor electrolytes kidney function. (3) Valvular heart disease: Code(s): I38 - Endocarditis, valve unspecified Status: Acute Assessment and Plan: History of (4) Type 2 diabetes mellitus with hyperglycemia: Code(s): E11.65 - Type 2 diabetes mellitus with hyperglycemia Status: Acute Assessment and Plan: monitor blood sugars give sliding scale insulin as needed (5) Anemia of chronic disease: Code(s): D63.8 - Anemia in other chronic diseases classified elsewhere Status: Acute Assessment and Plan: transfuse as needed (6) Chronic kidney disease, stage IV (severe): Code(s): N18.4 - Chronic kidney disease, stage 4 (severe) Status: Chronic Assessment and Plan: nephrology following. (7) Chronic respiratory failure with hypoxia, on home oxygen therapy: Code(s): J96.11 - Chronic respiratory failure with hypoxia; Z99.81 - Dependence on supplemental oxygen Status: Acute Assessment and Plan: Secondary to valvular disease and CHF. Patient iis not surgical intervention. Continue diuretic and volume status monitoring. Subjective Date/time seen: 07/08/21 15:54 07/08/2021 interval history: patient is 70-year-old female with history of preserved LV function with ejection fraction of 55 % and grade 2 diastolic dysfunction, patient presented with complaint of shortness breath, seen by Nephrology suspect volume overload and patient is being diuresed with Bumex, patient clinical symptoms are improved patient not a short of breath as pain she arrived will continue present management, will have PT OT evaluate the patient and further recommendation to follow. Review of Systems Review of Systems: 10 point ROS negative except as stated in HPI / Subjective Exam Narrative: Patient is comfortable, NAD HEENT: eyes are clear and none icteric LUNGS: normal respiratory effort ABD: not distended Lower extremities: no edema SKIN: nonjaundiced Neuro: grossly intact. Objective Data Vital Signs Vital Signs: Vital Signs - 24 hr 07/07/21 16:00 07/07/21 22:00 07/07/21 22:06 Temperature 97.2 F L Pulse Rate 80 74 72 Respiratory Rate 18 Blood Pressure 149/66 H Pulse Oximetry 95 Oxygen Delivery Oxygen Flow Rate 07/07/21 20:00 07/08/21 00:00 07/07/21 23:05 Temperature Pulse Rate 78 67 62 Respiratory Rate 15 Blood Pressure Pulse Oximetry 96 Oxygen Delivery Autopap Oxygen Flow Rate 07/08/21 04:00 07/08/21 05:51 07/08/21 08:23 Temperature 97.1 F L Pulse Rate 63 67 Respiratory Rate 16 Blood Pressure 156/79 H Pulse Oximetry 98 94 Oxygen Delivery Nasal Cannula Oxygen Flow Rate 2 07/08/21 09:03 07/08/21 08:00 07/08/21 08:00 Temperature Pulse Rate 69 65 Respiratory Rate Blood Pressure Pulse Oximetry 92 Oxygen Delivery Nasal Cannula Oxygen Flow Rate 2 07/08/21 12:00 07/08/21 14:00 Temperature 97.9 F Pulse Rate 68 70 Respiratory Rate 18 Blood Pressure 149/59 H Pulse Oximetry 94 Oxygen Delivery Oxygen Flow Rate
[2021-07-08 17:09] LABS: Glucose Point of Care 171 mg/dl (65-105)
[2021-07-08] MEDS: ATORVASTATIN 40 MG TABLET PO (17:20)
[2021-07-08] MEDS: ASPIRIN 81 MG ENTERIC TABLET PO (20:46)
[2021-07-08] MEDS: MIRTAZAPINE 15 MG TABLET PO (20:47)
[2021-07-08] MEDS: INSULIN GLARGINE (*BKC) 100 UNITS/ML 10 UNITS SUB-Q (20:53)
[2021-07-08 21:12] LABS: Glucose Point of Care 175 mg/dl (65-105)
[2021-07-09] VITALS (16 sets, daily range): BP systolic 131–142; BP diastolic 51–56; PULSE 60–86; RESP 13–20; TEMP 36.4–37.3; O2SAT 92–100
[2021-07-09 01:44] LABS: Glucose Point of Care 152 mg/dl (65-105)
[2021-07-09 06:05] LABS: Glucose Point of Care 86 mg/dl (65-105)
[2021-07-09 06:19] LABS: Hematocrit 31.3 % (37.0-47.0); Mean Corpuscular HGB Conc 31.9 g/dl (32-36); Mean Corpuscular Hemoglobin 31.2 pg (26-34); Mean Corpuscular Volume 97.5 fl (80-100); Mean Platelet Volume 11.4 fl (7.4-10.4); Platelet Count Result 193 k/mm3 (150-375); Red Blood Count 3.21 M/mm3 (4.2-5.4); Red Cell Distribution Width 17.2 % (11.5-14.5); White Blood Count 7.8 K/mm3 (4.5-10.0)
[2021-07-09 06:33] LABS: Albumin Level 2.8 g/dL (3.5-5.1); Anion Gap 7 mmol/L (8-16); Blood Urea Nitrogen 55 mg/dL (7-17); Calcium 7.9 mg/dL (8.4-10.2); Carbon Dioxide 26 mmol/L (22-30); Chloride 103 mmol/L (98-107); Estimated CRCL calculation 14 ml/min; Estimated Glomerular Filt Rate 15; Glucose 92 mg/dL (65-110); Phosphorus 5.3 mg/dL (2.5-4.5); Potassium 4.3 mmol/L (3.4-5.0); Sodium 136 mmol/L (137-145)
[2021-07-09 07:45] LABS: Glucose Point of Care 68 mg/dl (65-105)
[2021-07-09] MEDS: CHOLECALCIFEROL 1,000 UNITS TABLET 5000 UNITS PO (08:39)
[2021-07-09] MEDS: amLODIPine BESYLATE 5 MG TABLET 10 MG PO (08:40)
[2021-07-09] MEDS: APIXABAN 5 MG TABLET PO ×2 (08:40→20:37)
[2021-07-09] MEDS: MULTIVITAMINS THERAPEUTIC TAB (*BKC) 1 TABLET PO (08:40)
[2021-07-09] MEDS: PANTOPRAZOLE 40 MG TABLET PO (08:40)
[2021-07-09] MEDS: BUMETANIDE INJ 2.5 MG/10 ML VIAL 2 MG IV PUSH ×2 (08:41→16:49)
[2021-07-09] MEDS: ISOSORBIDE DINITRATE 20 MG TABLET 40 MG PO ×3 (08:41→16:50)
[2021-07-09] MEDS: hydrALAZINE HCL 25 MG TABLET 75 MG PO ×3 (08:42→16:50)
[2021-07-09] MEDS: TOLNAFTATE 1% POWDER 45 GM BTL 1 APPLIC TOPICAL ×3 (08:43→16:51)
[2021-07-09] MEDS: carvediloL 25 MG TABLET PO ×2 (08:43→20:37)
--- NOTE | 2021-07-09 11:04 | PCOTNOTE ---
Attempted to see patient this am, however prior to entering GRAPPLER exited room shaking head stating, Her family is here. She just found out her mom , so she's pretty upset right now. I would give her some time.
[2021-07-09 11:47] LABS: Glucose Point of Care 96 mg/dl (65-105)
[2021-07-09] MEDS: INSULIN ASPART (*BKC) 100 UNITS/ML SUB-Q ×2 (11:51→16:54)
--- NOTE | 2021-07-09 12:50 | PM.PNNEP ---
Progress Note: A&P Assessment and Plan (1) Chronic kidney disease, stage IV (severe): Code(s): N18.4 - Chronic kidney disease, stage 4 (severe) Status: Chronic Assessment and Plan: baseline creatinine averages around 2.0 - 2.7mg/dl thought to be secondary to her HTN, DM, cardiac/vascular disease and need for diuretics to maintain her volume status (leading to chronic prerenal azotemia) however, it would seem that we have to accept a higher creatinine in an effort to achieve/maintain euvolemia tolerating IV bumex 2mg bid. I/O not being measured very well due to urinary incontinence follow repeat CXR findings (2) Acute and chronic respiratory failure with hypoxia: Code(s): J96.21 - Acute and chronic respiratory failure with hypoxia Status: Acute Assessment and Plan: secondary to CHF and volume overload follow respiratory status with ongoing diuresis continue bumex for now check CXR tomorrow (3) CHF (congestive heart failure): Qualifiers: Heart failure chronicity: acute on chronic Heart failure type: unspecified Qualified Code(s): I50.9 - Heart failure, unspecified Code(s): I50.9 - Heart failure, unspecified Status: Chronic Assessment and Plan: on IV diuretics follow I/Os, daily weights, and respiratory status usually follows with Dr. Ritter (4) HTN (hypertension): Qualifiers: Hypertension type: essential hypertension Qualified Code(s): I10 - Essential (primary) hypertension Code(s): I10 - Essential (primary) hypertension Status: Chronic Assessment and Plan: elevated however, would follow trend with ongoing diuresis (as this may help bring this down) follow for another day or two for now (5) Anemia: Code(s): D64.9 - Anemia, unspecified Status: Chronic Assessment and Plan: due to CKD and acute illness adequate iron stores by anemia studies on Epogen 3x/week follow trend of H/H (6) Diabetes: Qualifiers: Diabetes mellitus complication status: with other specified complication Diabetes mellitus usp insulin use: with medical terminologist use Diabetes mellitus type: type 2 Qualified Code(s): E11.69 - Type 2 diabetes mellitus with other specified complication; Z79.4 - group home (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 Subjective Date/time seen: 07/09/21 12:50 Breathing continues to improve/stabilize with current therapy/interventions; renal function relatively stable in the context of IV diuresis as well; no new issues or problems to report at this time; no othe events overnight or earlier this AM. Exam Narrative: General: WD/WN male/female in NAD Heart: normal S1 and S2; no rub Lungs: clear anteriorly; decreased at bases Abdomen: soft, nontender, nondistended, positive bowel sounds Extremities: no cyanosis or clubbing; trace edema Skin: warm and intact Objective Data Vital Signs Vital Signs: Vital Signs Temp Pulse Resp BP Pulse Ox O2 Del Method O2 Flow Rate 07/09/21 12:00 69 07/09/21 08:00 92 Nasal Cannula 2 07/09/21 08:00 66 07/09/21 08:43 71 07/09/21 06:00 36.4 C L 64 20 138/56 L 100 07/09/21 04:00 60 07/09/21 05:28 15 95 Autopap 07/09/21 02:14 13 94 Autopap 07/09/21 00:00 65 07/08/21 22:00 36.7 C 71 20 135/60 93 07/08/21 20:00 72 21 H 95 Autopap 07/08/21 20:00 75 07/08/21 21:23 21 H 95 Autopap 07/08/21 21:22 94 Nasal Cannula 2 07/08/21 20:46 72 Intake/Output Intake/Output: Intake & Output 07/06/21 07/07/21 07/08/21 07/09/21 23:59 23:59 23:59 23:59 Intake Total 1490 908 211 4583 Output Total 1 Balance 1490 401 209 1481 Meds/Res
--- NOTE | 2021-07-09 12:50 | P.PNNP_ITS ---
Progress Note: A&P Assessment and Plan (1) Chronic kidney disease, stage IV (severe): Code(s): N18.4 - Chronic kidney disease, stage 4 (severe) Status: Chronic Assessment and Plan: * baseline creatinine averages around 2.0 - 2.7mg/dl * thought to be secondary to her HTN, DM, cardiac/vascular disease and need for diuretics to maintain her volume status (leading to chronic prerenal azotemia) * however, it would seem that we have to accept a higher creatinine in an effort to achieve/maintain euvolemia * tolerating IV bumex 2mg bid. * I/O not being measured very well due to urinary incontinence * follow repeat CXR findings (2) Acute and chronic respiratory failure with hypoxia: Code(s): J96.21 - Acute and chronic respiratory failure with hypoxia Status: Acute Assessment and Plan: * secondary to CHF and volume overload * follow respiratory status with ongoing diuresis * continue bumex for now * check CXR tomorrow (3) CHF (congestive heart failure): Qualifiers: Heart failure chronicity: acute on chronic Heart failure type: unsp ecified Qualified Code(s): I50.9 - Heart failure, unspecified Code(s): I50.9 - Heart failure, unspecified Status: Chronic Assessment and Plan: * on IV diuretics * follow I/Os, daily weights, and respiratory status * usually follows with Dr. Ritter (4) HTN (hypertension): Qualifiers: Hypertension type: essential hypertension Qualified Code(s): I10 - Essential (primary) hypertension Code(s): I10 - Essential (primary) hypertension Status: Chronic Assessment and Plan: * elevated * however, would follow trend with ongoing diuresis (as this may help bring this down) * follow for another day or two for now (5) Anemia: Code(s): D64.9 - Anemia, unspecified Status: Chronic Assessment and Plan: * due to CKD and acute illness * adequate iron stores by anemia studies * on Epogen 3x/week * follow trend of H/H (6) Diabetes: Qualifiers: Diabetes mellitus complication status: with other specified complication Diabetes mellitus intermediate insulin use: with exterminator termite use Diabetes mellitus type: type 2 Qualified Code(s): E11.69 - Type 2 diabetes mellitus with other specified complication; Z79.4 - correction (current) use of insulin Code(s): E11.9 - Type 2 diabetes mellitus without complications Status: Chronic Assessment and Plan: * follow accuchecks * on Lantus and SSI Will continue to follow. Subjective Date/time seen: 07/09/21 12:50 Breathing continues to improve/stabilize with current therapy/interventions; renal function relatively stable in the context of IV diuresis as well; no new issues or problems to report at this time; no othe events overnight or earlier this AM. Exam Narrative: General: WD/WN male/female in NAD Heart: normal S1 and S2; no rub Lungs: clear anteriorly; decreased at bases Abdomen: soft, nontender, nondistended, positive bowel sounds Extremities: no cyanosis or clubbing; trace edema Skin: warm and intact Objective Data Vital Signs Vital Signs: Vital Signs Temp Pulse Resp BP Pulse Ox O2 Del Method O2 Flow Rate 07/09/21 12:00 69 07/09/21 08:00 92 Nasal Cannula 2 07/09/21 08:00 66 07/09/21 08:43 71 07/09/21 06:00 36.4 C
--- NOTE | 2021-07-09 13:10 | P.CDI_ITS ---
CDI Query Clarification Request [facility] [address] [place] [address] Ultrasound Report Signed Lab results from 07/06: Ordering Physician: Rachel Louie PA-C Date of Service: 07/06/21 Procedure(s): US venous doppler LE BI Accession Number(s): [id number] cc: Levy Canada MD; Rachel Louie PA-C; Marcell, Pierce Duarte MD~ EXAMINATION: US venous doppler LE BI DATE: 07/06/2021 12:34 INDICATION: Right calf edema and pain. TECHNIQUE: Grayscale ultrasound images without and with compression and Doppler ultrasound images of the bilateral lower extremity veins were obtained. COMPARISON: Ultrasound 06/28/2021 FINDINGS: The visualized portions of right common femoral vein, profunda (deep) femoral vein, femoral vein, popliteal vein, posterior tibial veins, and greater saphenous vein outflow are patent. There is thrombus in the peroneal veins. The visualized portions of left common femoral vein, profunda femoral vein, femoral vein, popliteal vein, peroneal veins, posterior tibial veins, and greater saphenous vein outflow are patent. IMPRESSION: 1.? Deep vein thrombosis involving the right peroneal veins. I called this result to Dr. Meza. 07/08 Vocational Technical Education Director documented: * she has a DVT as well.? she is on eliquis. If you agree with this diagnosis (DVT) please add to problem list and add any pertinent information to treatment plan. <Ellie Marie - Last Filed: 07/09/21 13:23> Provider Comments I agree with the fund controller, patient has DVT and treated with Eliquis <Levy Canada MD - Last Filed: 07/23/21 12:48>
--- NOTE | 2021-07-09 13:24 | P.CDI_ITS ---
CDI Query Clarification Request 07/08 Nephrology documented: Acute and chronic respiratory failure with hypoxia: ?Code(s): J96.21 - Acute and chronic respiratory failure with hypoxia ?Status:?Acute ?Assessment and Plan: * secondary to CHF and volume overload * follow respiratory status with ongoing diuresis * continue bumex. 07/08 Hospitalist documented: Chronic respiratory failure with hypoxia, on home oxygen therapy: ?Code(s): J96.11 - Chronic respiratory failure with hypoxia; Z99.81 - Dependence on supplemental oxygen ?Status:?Acute ?Assessment and Plan: ? Secondary to valvular disease and CHF.? Patient iis not surgical intervention.? Continue diuretic and volume status monitoring. Please clarify acuity of diagnosis: Respiratory failure with hypoxia: Acute, chronic, acute on chronic, other or unable to determine. <Ellie Marie - Last Filed: 07/09/21 13:30> Clarified Diagnosis (1) Acute and chronic respiratory failure: Code(s): J96.20 - Acute and chronic respiratory failure, unspecified whether with hypoxia or hypercapnia <Ellie Marie - Last Filed: 07/09/21 13:30> Status: Acute <Ellie Marie - Last Filed: 07/09/21 13:30> Assessment and Plan: I agree with chief dispatcher service patient has acute on chronic respiratory failure <Levy Canada MD - Last Filed: 07/23/21 12:53>
--- NOTE | 2021-07-09 13:31 | P.CDI_ITS ---
CDI Query Clarification Request 07/08 Gear Repair Supervisor documented: CHF (congestive heart failure): Qualifiers: Heart failure chronicity: acute on chronic Heart failure type: unspecified Qualified Code(s): I50.9 - Heart failure, unspecified Code(s): I50.9 - Heart failure, unspecified Status: Chronic Assessment and Plan: on IV diuretics follow I/Os, daily weights, and respiratory status usually follows with Dr. Ritter 07/07 Hospitalist documented: Congestive heart failure: ?Code(s): I50.9 - Heart failure, unspecified ?Status:?Acute ?Assessment and Plan: ? Continue diuretic therapy.? Monitor electrolytes kidney function. Please clarify acuity of diagnosis: CHF, (Congestive Heart Failure), Acute, Chronic, Acute on Chronic, other, unable to determine. Please clarify if, CHF, (Congestive Heart Failure) is : Systolic, Diastolic, combined, other, or unable to determine <Ellie Marie - Last Filed: 07/09/21 13:38> Clarified Diagnosis (1) Diastolic congestive heart failure: Code(s): I50.30 - Unspecified diastolic (congestive) heart failure <Ellie Marie - Last Filed: 07/09/21 13:38> Status: Acute <Ellie Marie - Last Filed: 07/09/21 13:38> Assessment and Plan: patient with acute on chronic diastolic congestive heart failure patient was diuresed <Levy Canada MD - Last Filed: 07/23/21 12:55>
--- NOTE | 2021-07-09 14:48 | PCPTNOTE ---
Attempted to see patient for PT, however patient found out her mother and declined therapy at this time.
--- NOTE | 2021-07-09 15:21 | PM.IMPN ---
Progress Note: A&P Assessment and Plan (1) Volume overload: Code(s): E87.70 - Fluid overload, unspecified Status: Acute Assessment and Plan: volume status per Nephrology. 07/08/2021 interval history: patient is 70-year-old female with history of preserved LV function with ejection fraction of 55 % and grade 2 diastolic dysfunction, patient presented with complaint of shortness breath, seen by Nephrology suspect volume overload and patient is being diuresed with Bumex, patient clinical symptoms are improved patient not a short of breath as pain she arrived will continue present management, will have PT OT evaluate the patient and further recommendation to follow. 07/09/2021 interval history: patient is 70-year-old female with history of preserved LV function with ejection fraction of 55 % and grade 2 diastolic dysfunction, patient presented with complaint of shortness breath, seen by Nephrology suspect volume overload and patient is being diuresed with Bumex, patient clinical symptoms have improved patient not a short of breath as when she arrived, patient is requiring 2 L of oxygen at rest and there is her baseline, patient is not very ambulatory and not very keen working with physical therapy, patient was visited by her family and suggested patient is her baseline, apparently there is in the family will continue present management, will have PT OT evaluate the patient and further recommendation to follow. (2) Congestive heart failure: Code(s): I50.9 - Heart failure, unspecified Status: Acute Assessment and Plan: Continue diuretic therapy. Monitor electrolytes kidney function. (3) Valvular heart disease: Code(s): I38 - Endocarditis, valve unspecified Status: Acute Assessment and Plan: History of (4) Type 2 diabetes mellitus with hyperglycemia: Code(s): E11.65 - Type 2 diabetes mellitus with hyperglycemia Status: Acute Assessment and Plan: monitor blood sugars give sliding scale insulin as needed (5) Anemia of chronic disease: Code(s): D63.8 - Anemia in other chronic diseases classified elsewhere Status: Acute Assessment and Plan: transfuse as needed (6) Chronic kidney disease, stage IV (severe): Code(s): N18.4 - Chronic kidney disease, stage 4 (severe) Status: Chronic Assessment and Plan: nephrology following. (7) Chronic respiratory failure with hypoxia, on home oxygen therapy: Code(s): J96.11 - Chronic respiratory failure with hypoxia; Z99.81 - Dependence on supplemental oxygen Status: Acute Assessment and Plan: Secondary to valvular disease and CHF. Patient iis not surgical intervention. Continue diuretic and volume status monitoring. Subjective Date/time seen: 07/09/21 15:21 07/09/2021 interval history: patient is 70-year-old female with history of preserved LV function with ejection fraction of 55 % and grade 2 diastolic dysfunction, patient presented with complaint of shortness breath, seen by Nephrology suspect volume overload and patient is being diuresed with Bumex, patient clinical symptoms have improved patient not a short of breath as when she arrived, patient is requiring 2 L of oxygen at rest and there is her baseline, patient is not very ambulatory and not very keen working with physical therapy, patient was visited by her family and suggested patient is her baseline, apparently there is in the family will continue present management, will have PT OT evaluate the patient and further recommendation to follow. Exam Narrative: Patient is comfortable, NAD HEENT: eyes are clear and none icteric LUNGS: normal respiratory effort ABD: not distended Lower extremities: no edema SKIN: nonjaundiced Neuro: grossly intact. Objective Data Vital Signs Vital Signs: Vital Signs - 24 hr 07/08/21 16:00 07/08/21 20:46 07/08/21 21:22 Temperature Pul
[2021-07-09 16:12] LABS: Glucose Point of Care 137 mg/dl (65-105)
[2021-07-09] MEDS: ATORVASTATIN 40 MG TABLET PO (16:59)
[2021-07-09] MEDS: ACETAMINOPHEN 500 MG TABLET PO ×2 (17:12→20:37)
[2021-07-09 20:31] LABS: Glucose Point of Care 187 mg/dl (65-105)
[2021-07-09] MEDS: MIRTAZAPINE 15 MG TABLET PO (20:37)
[2021-07-09] MEDS: ASPIRIN 81 MG ENTERIC TABLET PO (20:37)
[2021-07-09] MEDS: INSULIN GLARGINE (*BKC) 100 UNITS/ML 10 UNITS SUB-Q (20:39)
[2021-07-10] VITALS (8 sets, daily range): BP systolic 124–133; BP diastolic 55–62; PULSE 62–76; RESP 15–18; TEMP 36.2–36.3; O2SAT 95–100
[2021-07-10 06:27] LABS: Hematocrit 29.3 % (37.0-47.0); Hemoglobin 9.4 g/dL (12.0-15.0); Mean Corpuscular HGB Conc 32.1 g/dl (32-36); Mean Corpuscular Hemoglobin 31.1 pg (26-34); Mean Platelet Volume 10.6 fl (7.4-10.4); Platelet Count Result 184 k/mm3 (150-375); Red Blood Count 3.02 M/mm3 (4.2-5.4); Red Cell Distribution Width 17.2 % (11.5-14.5); White Blood Count 7.2 K/mm3 (4.5-10.0)
[2021-07-10 06:30] LABS: Glucose Point of Care 105 mg/dl (65-105)
[2021-07-10 06:51] LABS: Albumin Level 2.6 g/dL (3.5-5.1); Anion Gap 3 mmol/L (8-16); Blood Urea Nitrogen 57 mg/dL (7-17); Calcium 7.8 mg/dL (8.4-10.2); Carbon Dioxide 31 mmol/L (22-30); Chloride 101 mmol/L (98-107); Estimated CRCL calculation 13 ml/min; Estimated Glomerular Filt Rate 14; Glucose 102 mg/dL (65-110); Phosphorus 5.3 mg/dL (2.5-4.5); Potassium 4.4 mmol/L (3.4-5.0); Sodium 135 mmol/L (137-145)
[2021-07-10 07:39] LABS: Glucose Point of Care 100 mg/dl (65-105)
--- NOTE | 2021-07-10 08:31 | PCOTNOTE ---
Patient unavailable to see, in chest xray. Will continue plan of care.
[2021-07-10] MEDS: INSULIN ASPART (*BKC) 100 UNITS/ML SUB-Q (08:45)
[2021-07-10] MEDS: BUMETANIDE INJ 2.5 MG/10 ML VIAL 2 MG IV PUSH (08:45)
[2021-07-10] MEDS: MULTIVITAMINS THERAPEUTIC TAB (*BKC) 1 TABLET PO (08:46)
[2021-07-10] MEDS: CHOLECALCIFEROL 1,000 UNITS TABLET 5000 UNITS PO (08:46)
[2021-07-10] MEDS: ISOSORBIDE DINITRATE 20 MG TABLET 40 MG PO ×2 (08:46→14:00)
[2021-07-10] MEDS: APIXABAN 5 MG TABLET PO (08:46)
[2021-07-10] MEDS: hydrALAZINE HCL 25 MG TABLET 75 MG PO ×2 (08:46→14:00)
[2021-07-10] MEDS: amLODIPine BESYLATE 5 MG TABLET 10 MG PO (08:46)
[2021-07-10] MEDS: PANTOPRAZOLE 40 MG TABLET PO (08:46)
[2021-07-10] MEDS: carvediloL 25 MG TABLET PO (08:47)
[2021-07-10] MEDS: TOLNAFTATE 1% POWDER 45 GM BTL 1 APPLIC TOPICAL ×2 (08:48→14:00)
--- NOTE | 2021-07-10 10:14 | PM.PNNEP ---
Progress Note: A&P Assessment and Plan (1) Chronic kidney disease, stage IV (severe): Code(s): N18.4 - Chronic kidney disease, stage 4 (severe) Status: Chronic Assessment and Plan: baseline creatinine averages around 2.0 - 2.7mg/dl thought to be secondary to her HTN, DM, cardiac/vascular disease and need for diuretics to maintain her volume status (leading to chronic prerenal azotemia) however, it would seem that we have to accept a higher creatinine in an effort to achieve/maintain euvolemia tolerating IV bumex 2mg bid - switch to oral dosing (?) I/O not being measured very well due to urinary incontinence follow CXR findings (2) Acute and chronic respiratory failure with hypoxia: Code(s): J96.21 - Acute and chronic respiratory failure with hypoxia Status: Acute Assessment and Plan: secondary to CHF and volume overload follow respiratory status with ongoing diuresis continue bumex for now (3) CHF (congestive heart failure): Qualifiers: Heart failure chronicity: acute on chronic Heart failure type: unspecified Qualified Code(s): I50.9 - Heart failure, unspecified Code(s): I50.9 - Heart failure, unspecified Status: Chronic Assessment and Plan: on IV diuretics follow I/Os, daily weights, and respiratory status usually follows with Dr. Ritter (4) HTN (hypertension): Qualifiers: Hypertension type: essential hypertension Qualified Code(s): I10 - Essential (primary) hypertension Code(s): I10 - Essential (primary) hypertension Status: Chronic Assessment and Plan: elevated on admission but better at this suspect ongoing diuresis helping follow trend of hemodynamics (5) Anemia: Code(s): D64.9 - Anemia, unspecified Status: Chronic Assessment and Plan: due to CKD and acute illness adequate iron stores by anemia studies on Epogen 3x/week while hospitalized follow trend of H/H (6) Diabetes: Qualifiers: Diabetes mellitus complication status: with other specified complication Diabetes mellitus snf insulin use: with long chain beamer use Diabetes mellitus type: type 2 Qualified Code(s): E11.69 - Type 2 diabetes mellitus with other specified complication; Z79.4 - senior living (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 Subjective Date/time seen: 07/10/21 10:14 Slow and steady improvement in edema and shortness of breath; results of CXR this AM noted; renal function relatively stable in spite of diuresis; daughter at bedside and we discussed the situation; no eventes/problems overnight or earlier this morning. Exam Narrative: General: WD/WN male/female in NAD Heart: normal S1 and S2; no rub Lungs: clear anteriorly; decreased at bases Abdomen: soft, nontender, nondistended, positive bowel sounds Extremities: no cyanosis or clubbing; trace edema Skin: no nodules Objective Data Vital Signs Vital Signs: Vital Signs Temp Pulse Resp BP Pulse Ox O2 Del Method O2 Flow Rate 07/10/21 08:00 68 18 98 Autopap 2 07/10/21 08:47 68 07/10/21 06:00 36.3 C L 66 18 133/55 L 98 07/10/21 04:00 65 07/10/21 02:19 76 15 95 Autopap 07/10/21 00:00 62 07/09/21 22:51 81 16 96 Autopap 07/09/21 22:00 36.7 C 72 16 142/51 H 100 07/09/21 20:00 71 07/09/21 21:05 94 Nasal Cannula 2 07/09/21 20:37 86 07/09/21 16:00 72 07/09/21 14:37 94 Nasal Cannula 2 07/09/21 14:00 37.3 C 73 16 131/55 L 97 07/09/21 12:00 69 Intake/Output Intake/Output: Intake & Output 07/07/21 07/08/21 07/09/21 07/10/21 23:59 23:59 23:59 23:59 Intake Total 077 710 1767 456 Output Total 1 Balance 979 700 1
--- NOTE | 2021-07-10 10:14 | P.PNNP_ITS ---
Progress Note: A&P Assessment and Plan (1) Chronic kidney disease, stage IV (severe): Code(s): N18.4 - Chronic kidney disease, stage 4 (severe) Status: Chronic Assessment and Plan: * baseline creatinine averages around 2.0 - 2.7mg/dl * thought to be secondary to her HTN, DM, cardiac/vascular disease and need for diuretics to maintain her volume status (leading to chronic prerenal azotemia) * however, it would seem that we have to accept a higher creatinine in an effort to achieve/maintain euvolemia * tolerating IV bumex 2mg bid - switch to oral dosing (?) * I/O not being measured very well due to urinary incontinence * follow CXR findings (2) Acute and chronic respiratory failure with hypoxia: Code(s): J96.21 - Acute and chronic respiratory failure with hypoxia Status: Acute Assessment and Plan: * secondary to CHF and volume overload * follow respiratory status with ongoing diuresis * continue bumex for now (3) CHF (congestive heart failure): Qualifiers: Heart failure chronicity: acute on chronic Heart failure type: unsp ecified Qualified Code(s): I50.9 - Heart failure, unspecified Code(s): I50.9 - Heart failure, unspecified Status: Chronic Assessment and Plan: * on IV diuretics * follow I/Os, daily weights, and respiratory status * usually follows with Dr. Ritter (4) HTN (hypertension): Qualifiers: Hypertension type: essential hypertension Qualified Code(s): I10 - Essential (primary) hypertension Code(s): I10 - Essential (primary) hypertension Status: Chronic Assessment and Plan: * elevated on admission but better at this * suspect ongoing diuresis helping * follow trend of hemodynamics (5) Anemia: Code(s): D64.9 - Anemia, unspecified Status: Chronic Assessment and Plan: * due to CKD and acute illness * adequate iron stores by anemia studies * on Epogen 3x/week while hospitalized * follow trend of H/H (6) Diabetes: Qualifiers: Diabetes mellitus complication status: with other specified complication Diabetes mellitus long-term insulin use: with manager intermediate use Diabetes mellitus type: type 2 Qualified Code(s): E11.69 - Type 2 diabetes mellitus with other specified complication; 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 Subjective Date/time seen: 07/10/21 10:14 Slow and steady improvement in edema and shortness of breath; results of CXR this AM noted; renal function relatively stable in spite of diuresis; daughter at bedside and we discussed the situation; no eventes/problems overnight or earlier this morning. Exam Narrative: General: WD/WN male/female in NAD Heart: normal S1 and S2; no rub Lungs: clear anteriorly; decreased at bases Abdomen: soft, nontender, nondistended, positive bowel sounds Extremities: no cyanosis or clubbing; trace edema Skin: no nodules Objective Data Vital Signs Vital Signs: Vital Signs Temp Pulse Resp BP Pulse Ox O2 Del Method O2 Flow Rate 07/10/21 08:00 68 18 98 Autopap 2 07/10/21 08:47 68 07/10/21 06:00 36.3 C L 66 18 133/55 L 98 07/10/21 04:00 65 06/15
[2021-07-10 11:59] LABS: Glucose Point of Care 67 mg/dl (65-105)
--- NOTE | 2021-07-10 12:28 | PM.DS ---
DS: Admitting Diagnosis Discharge Date 07/10/2021 Admitting Diagnosis shortness of breath DS: Discharge Diagnosis Discharge Diagnosis (1) Volume overload: Code(s): E87.70 - Fluid overload, unspecified Status: Acute Assessment and Plan: volume status per Nephrology. 07/08/2021 interval history: patient is 70-year-old female with history of preserved LV function with ejection fraction of 55 % and grade 2 diastolic dysfunction, patient presented with complaint of shortness breath, seen by Nephrology suspect volume overload and patient is being diuresed with Bumex, patient clinical symptoms are improved patient not a short of breath as pain she arrived will continue present management, will have PT OT evaluate the patient and further recommendation to follow. 07/09/2021 interval history: patient is 70-year-old female with history of preserved LV function with ejection fraction of 55 % and grade 2 diastolic dysfunction, patient presented with complaint of shortness breath, seen by Nephrology suspect volume overload and patient is being diuresed with Bumex, patient clinical symptoms have improved patient not a short of breath as when she arrived, patient is requiring 2 L of oxygen at rest and there is her baseline, patient is not very ambulatory and not very keen working with physical therapy, patient was visited by her family and suggested patient is her baseline, apparently there is in the family will continue present management, will have PT OT evaluate the patient and further recommendation to follow. (2) Congestive heart failure: Qualifiers: Heart failure type: diastolic Heart failure chronicity: acute on chronic Qualified Code(s): I50.33 - Acute on chronic diastolic (congestive) heart failure Code(s): I50.9 - Heart failure, unspecified Status: Acute Assessment and Plan: Continue diuretic therapy. Monitor electrolytes kidney function. (3) Valvular heart disease: Code(s): I38 - Endocarditis, valve unspecified Status: Acute Assessment and Plan: History of (4) Type 2 diabetes mellitus with hyperglycemia: Code(s): E11.65 - Type 2 diabetes mellitus with hyperglycemia Status: Acute Assessment and Plan: monitor blood sugars give sliding scale insulin as needed (5) Anemia of chronic disease: Code(s): D63.8 - Anemia in other chronic diseases classified elsewhere Status: Acute Assessment and Plan: transfuse as needed (6) Chronic kidney disease, stage IV (severe): Code(s): N18.4 - Chronic kidney disease, stage 4 (severe) Status: Chronic Assessment and Plan: nephrology following. (7) Chronic respiratory failure with hypoxia, on home oxygen therapy: Code(s): J96.11 - Chronic respiratory failure with hypoxia; Z99.81 - Dependence on supplemental oxygen Status: Acute Assessment and Plan: Secondary to valvular disease and CHF. Patient iis not surgical intervention. Continue diuretic and volume status monitoring. DS: Summary Hospital Course Reason for hospitalization: Chief Complaint: Shortness of breath and increased blood sugar. Narrative: This is a pleasant 70-year-old female with insulin-dependent diabetes, hypertension, chronic kidney disease, diastolic congestive heart failure, peripheral vascular disease, valvular heart disease, chronic respiratory failure on oxygen, and other comorbidities who presented to the emergency department via EMS for evaluation of shortness of breath and increased blood sugar. She is known to the hospitalist service with a recent 10 day admission for acute on chronic diastolic congestive heart failure after presenting under similar circumstances. She was diuresed with improvement in her volume status and she was discharged back to her rehab facility on 06/29/2021 near her baseline. Unfortunately she has once again become progressively more edematou
[2021-07-10 12:34] LABS: Glucose Point of Care 78 mg/dl (65-105)
[2021-07-10] MEDS: EPOETIN ALFA-EPBX 10,000 UNITS/ML VIAL 10000 UNITS SUB-Q (14:02)
[2021-07-10 14:29] LABS: EDCOVIDSCREEN Negative (Negative)
== END 2021-07-10 15:35 | DRG 291 ==
LOC: ANHED 11:40 → ANH3MEDSUR 11:49
PROVIDERS: Internal Medicine Nephrology; Physician Assistant; Admitting Provider Family Medicine; Emergency Provider Emergency Medicine; PCP Family Medicine; Visit Provider Family Medicine
DX: I13.0 Hypertensive heart and chronic kidney disease with heart failure and stage 1 through stage 4 chronic kidney disease, or unspecified chronic kidney disease (principal); J96.21 Acute and chronic respiratory failure with hypoxia; I50.33 Acute on chronic diastolic (congestive) heart failure; N18.4 Chronic kidney disease, stage 4 (severe); I82.451 Acute embolism and thrombosis of right peroneal vein; Z20.822 Contact with and (suspected) exposure to COVID-19; E11.65 Type 2 diabetes mellitus with hyperglycemia; D63.8 Anemia in other chronic diseases classified elsewhere; Z99.81 Dependence on supplemental oxygen; E78.5 Hyperlipidemia, unspecified; G47.33 Obstructive sleep apnea (adult) (pediatric); M81.0 Age-related osteoporosis without current pathological fracture; I27.20 Pulmonary hypertension, unspecified; E11.319 Type 2 diabetes mellitus with unspecified diabetic retinopathy without macular edema; I65.23 Occlusion and stenosis of bilateral carotid arteries; I25.10 Atherosclerotic heart disease of native coronary artery without angina pectoris; Z82.49 Family history of ischemic heart disease and other diseases of the circulatory system; Z82.3 Family history of stroke; Z79.899 Other long term (current) drug therapy; Z79.4 Long term (current) use of insulin
CPT/HCPCS: 36415; 36600; 71046; 78580; 80053; 80069; 82375; 82728; 82805; 82948; 83050; 83540; 83550; 83605; 83880; 84100; 84443; 85025; 85027; 87040; 87426; 87502; 93005; 93970; 96372; 96374; 96376; 97110; 97161; 97165; 97530; 97535; 99285; A9270; A9540; C9803; G0378; J1644; J1815; Q5105; U0003; U0005

== ENCOUNTER 2021-07-11 19:51 | Inpatient (IN) | payer OTHER, SELFPAY ==
--- NOTE | ~2021-07-11 | XR_ITS ---
XR chest ET placement DATE: 07/13/2021 08:51 INDICATION: Cardiac arrest TECHNIQUE: Portable supine AP view on 07/13/2021 at 0819 hours COMPARISON: 07/11/2021 portable AP chest at 2032 hours FINDINGS: There is an endotracheal tube, the tip within 6 mm of the sunny. Proximal repositioning ap proximately 2-4 cm is recommended. NG tube in stomach. No central lines are noted. Extensive patchy consolidating infiltrates scattered throughout both lungs. Cardiomegaly. No pneumothorax is evident. Diffuse osteopenia. IMPRESSION: Extensive bilateral pulmonary infiltrates; diffusion diagnosis includes pneumonia, pulmon holly edema ET tube tip within 6 mm of sunny spelled proximal repositioning is recommended NG tube in stomach Reviewed, dictated and finalized at [facility]. Reviewed, dictated and finalized at location A. IMPRESSION: Extensive bilateral pulmonary infiltrates; diffusion diagnosis incl udes pneumonia, pulmonary edema ET tube tip within 6 mm of sunny spelled proximal repositioning is recommended NG tube in stomach
--- NOTE | ~2021-07-11 | XR_ITS ---
EXAMINATION: XR barium swallow modified DATE: 07/18/2021 12:33 INDICATION: Dysphagia TECHNIQUE: Modified barium esophagram was performed by myself to administered fluoroscopy, in conjun ction with speech pathologist who administered barium in varying consistencies as per speech patholog ist documentation. This was recorded on tape. A single fluoroscopic spot image was recorded. The DAP for this procedure was 2.11 Gycm2. Fluoroscopy exposure time was 3.5 minutes. FINDINGS: Oral stage: Increased mastication with solids. Pharyngeal phase: Reduced laryngeal elevation, reduced tongue base retraction, reduced laryngeal addu ction, vallecular and piriform sinus residue. Laryngeal penetration: Present. Aspiration: Present. Laryngeal sensitivity: Present. IMPRESSION: Abnormal modified barium swallow. Please refer to speech pathologist findings and specifi c feeding recommendations. Reviewed, dictated and finalized at location A. IMPRESSION: Abnormal modified barium swallow. Please refer to speech pathologis t findings and specific feeding recommendations.
--- NOTE | ~2021-07-11 | XR_ITS ---
XR chest 1V portable 07/15/2021 05:41 Indication: Acute respiratory failure Procedure: AP portable chest Comparison: Comparison to multiple prior studies sequentially, with oldest reviewed study dated 07/11. Findings: Endotracheal tube tip 1.7 cm above the sunny. Cardiomegaly. Persistent diffuse bilateral a irspace disease, which may represent pneumonia or edema. No significant pleural effusion. No pneumoth orax. NG tube in the stomach. Large bore right IJ central venous catheter tip near the cavoatrial mariano ction. Impression: 1: No significant change to diffuse bilateral airspace disease which may represent pneumonia or edema . Reviewed, dictated and finalized at location A. Impression: 1: No significant change to diffuse bilateral airspace disease which may repres ent pneumonia or edema.
--- NOTE | ~2021-07-11 | XR_ITS ---
EXAMINATION: XR chest 1V portable INDICATION: Acute respiratory failure TECHNIQUE: Portable AP chest at 0545 hours COMPARISON: 07/17/2021 FINDINGS: The endotracheal tube has been removed. A large bore right internal jugular catheter ends w ith its tip in the proximal right atrium. Diffuse interstitial and airspace opacities are present whi ch demonstrate interval worsening. A [id number]-mu-pnoeltiz size right pleural effusion has developed. The cardiomediastinal silhouette is stable. There is no pneumothorax. There are healed right-sided rib f ractures. IMPRESSION: 1. Diffuse lung disease, consistent with pneumonia and/or pulmonary edema. 2. Small to moderate size right pleural effusion. Reviewed, dictated and finalized at location A.
--- NOTE | ~2021-07-11 | XR_ITS ---
EXAMINATION: XR chest 1V portable DATE: 07/23/2021 05:26 INDICATION: Pneumonia. Change in oxygen demands. TECHNIQUE: A single frontal view of the chest was obtained. COMPARISON: Chest single view 07/22/2021 FINDINGS: There are airspace opacities and coarse interstitial opacities throughout the lungs bilater ally. No pleural effusion or pneumothorax. Cardiomegaly is noted. The nasoenteric tube tip is in the stomach. A right internal jugular central venous catheter is seen with tip at the superior cavoatrial junction. There is an old healed fracture of proximal right humerus. IMPRESSION: 1. Stable diffuse lung disease, consistent with pneumonia versus pulmonary edema superimposed on air vice marshal hansa interstitial lung disease. 2. Cardiomegaly. Reviewed, dictated and finalized at location A. IMPRESSION: 1. Stable diffuse lung disease, consistent with pneumonia versus pulmonary demario a superimposed on chronic interstitial lung disease. 2. Cardiomegaly.
--- NOTE | ~2021-07-11 | XR_ITS ---
EXAMINATION: XR chest 1V portable INDICATION: Congestive heart failure TECHNIQUE: Portable AP chest at 0512 hours COMPARISON: 07/18/2021 FINDINGS: Patchy opacities persist throughout all lung zones without significant change. A right inte rnal jugular catheter ends with its tip in the distal superior vena cava. The feeding tube is in the third portion of the duodenum. There is a stable small to moderate size right pleural effusion. The c ardiomediastinal silhouette is stable. There are healed and acute right-sided rib fractures. There is no pneumothorax. IMPRESSION: 1. Stable diffuse lung disease, consistent with pneumonia and/or pulmonary edema. 2. Small to moderate size right pleural effusion. Reviewed, dictated and finalized at location A. IMPRESSION: 1. Stable diffuse lung disease, consistent with pneumonia and/or pulmonary demario a. 2. Small to moderate size right pleural effusion.
--- NOTE | ~2021-07-11 | XR_ITS ---
XR chest 2V 07/11/2021 20:36 Indication: Shortness of breath and swelling Procedure: AP and lateral views of the chest Comparison: Comparison to multiple prior studies sequentially, with oldest reviewed study dated 07/05. Findings: There is extensive bilateral airspace disease, unchanged from prior examinations. No signif icant effusion. No pneumothorax. Stable cardiomediastinal silhouette. No acute osseous abnormality. Impression: 1: Stable diffuse lung disease which may represent pulmonary edema and/or pneumonia. Cannot exclude c hronic superimposed interstitial lung disease. Reviewed, dictated and finalized at location A. Impression: 1: Stable diffuse lung disease which may represent pulmonary edema and/or pneum onia. Cannot exclude chronic superimposed interstitial lung disease.
--- NOTE | ~2021-07-11 | XR_ITS ---
EXAMINATION: XR chest 1V portable DATE: 07/22/2021 05:34 INDICATION: Pneumonia. TECHNIQUE: A single frontal view of the chest was obtained. COMPARISON: Chest single view at 07/20/21 FINDINGS: There are airspace opacities and coarse interstitial opacities throughout the lungs bilater ally. No pleural effusion or pneumothorax. Cardiomegaly is noted. The nasoenteric tube tip is beyond the inferior margin of the radiograph, but at least to the stomach. A right internal jugular central venous catheter is seen with tip at the superior cavoatrial junction. IMPRESSION: 1. Stable diffuse lung disease, consistent with pneumonia versus pulmonary edema superimposed on administrative judge hansa interstitial lung disease. 2. Cardiomegaly. Reviewed, dictated and finalized at location A. IMPRESSION: 1. Stable diffuse lung disease, consistent with pneumonia versus pulmonary demario a superimposed on chronic interstitial lung disease. 2. Cardiomegaly.
--- NOTE | ~2021-07-11 | XR_ITS ---
XR chest port-a-cath/central DATE: 07/13/2021 09:13 INDICATION: Cardiac arrest. Dylan catheter placement. TECHNIQUE: Portable supine AP view on 07/13/2021 at 0909 hours COMPARISON: 07/13/2021 portable AP chest at 0819 hours FINDINGS: Interval placement of right internal jugular central venous catheter, the tip overlying the superior vena cava. No pneumothorax is evident. ET tube tip is 8 mm above sunny; ideal range is 20-15 mm. The NG tube in stomach. Extensive patchy bilateral pulmonary infiltrates are again noted. No pneumothorax. Diffuse osteopenia. Dextroscoliosis and degenerative changes of the thoracic and lumbar spine. IMPRESSION: Right internal jugular central venous catheter tip overlies superior vena cava; no pneumo thorax ET tube tip within 8 mm of sunny; recommend repositioning 1.2-4.2 cm proximally Reviewed, dictated and finalized at [facility]. Reviewed, dictated and finalized at location A. IMPRESSION: Right internal jugular central venous catheter tip overlies superio r vena cava; no pneumothorax ET tube tip within 8 mm of sunny; recommend repositioning 1.2-4.2 cm proximall y
--- NOTE | ~2021-07-11 | XR_ITS ---
XR chest 1V portable 07/17/2021 06:03 Indication: Acute respiratory failure Procedure: AP portable chest Comparison: Comparison to multiple prior studies sequentially, with oldest reviewed study dated 07/13. Findings: Endotracheal tube tip 1 cm above the sunny. Recommend retraction 2-3 cm. NG tube in the st omach. Right IJ central venous catheter tip near the cavoatrial junction. There is persistent diffuse bilateral airspace disease which is not significantly changed. Impression: 1: Persistent diffuse bilateral airspace disease which may represent edema or pneumonia. Possible sup erimposed chronic interstitial lung disease. 2: Endotracheal tube tip 1 cm above the sunny. Recommend retraction 2-3 cm. Reviewed, dictated and finalized at location A. Impression: 1: Persistent diffuse bilateral airspace disease which may represent edema or p neumonia. Possible superimposed chronic interstitial lung disease. 2: Endotracheal tube tip 1 cm above the sunny. Recommend retraction 2-3 cm.
--- NOTE | ~2021-07-11 | XR_ITS ---
EXAMINATION: XR fl Dobhoff insert/rad w img DATE: 07/18/2021 13:21 INDICATION: Failed modified barium swallow TECHNIQUE: A Dobbhoff type feeding tube was advanced into the duodenum utilizing intermittent fluoroscopy. Final image demonstrates the feeding tube in position with the weighted tip in the third portion of the du odenum. The tube was flushed with 10 mL sterile saline and fixed to the nares with adhesive tape. Two fluoroscopic images were recorded. Fluoroscopy exposure time was 3.0 minutes. The DAP for this proce dure was 3.491 Gycm2. There were no immediate complications. FINDINGS/IMPRESSION: Successful fluoroscopy-guided Dobbhoff feeding tube placement with distal tip in the third portion of the duodenum. Reviewed, dictated and finalized at location A.
--- NOTE | ~2021-07-11 | CT_ITS ---
EXAMINATION: CT chest abdomen pelvis wo con DATE: 07/13/2021 10:33 INDICATION: Cardiac arrest. Dylan catheter placement. ET and NG tube placements. TECHNIQUE: Computed tomography (CT) of the chest, abdomen, and pelvis was performed without intraveno us contrast. Automated exposure control and iterative reconstruction technique were employed. Exam do se: 1006.52 mGy-cm total exam DLP. COMPARISON: 07/13/2021 portable AP chest FINDINGS: CHEST CT: There is cardiomegaly. Prominent coronary artery calcifications. No thoracic aortic aneurysm. No louisa cardial effusion. Small right pleural effusion. Severe patchy consolidating infiltrates are noted throughout both lungs with consolidation and air br onchograms involving the lower lobes, especially on the right. The findings are consistent with sever e bilateral pneumonia. There is likely reactive hilar and mediastinal lymph node prominence. Small pleural effusions. No pneumothorax. ET and orogastric tubes are present. ABDOMEN/PELVIS CT: There are stones in the dependent aspect of the gallbladder. No hepatic, splenic, pancreatic, and adr enal or renal space-occupying mass lesion is evident on this limited noncontrast examination. There is extensive atherosclerotic calcification of the abdominal aorta, iliac and femoral arteries; no abdominal aortic aneurysm. No intraperitoneal or retroperitoneal or pelvic mass lesion or adenopathy. There is mild perihepatic, left paracolic and dependent pelvic free fluid. There is a Humphries catheter in the evacuated urinary bladder. Uterus and adnexal areas are unremarkable . There is an orogastric tube in the distal gastric antral area. There is diverticulosis of the left colon no CT evidence of diverticulitis. No bowel obstruction or i ntraperitoneal free air is detected. There is edema of the chest, abdominal and pelvic dunaway Approximately 4 mm anteriorly displaced fracture of the mid body of the sternum. Multiple recent right rib fractures are noted, including second through possibly the 10th ribs. Approximately left second through seventh anterior rib fractures are noted. Prominent degenerative disease C5-6 and C6-7. There is degenerative spurring of the thoracic and lumb ar spine With the degenerative disc disease, most severe at L1-2 and on the right at L3-4. There is prominent degenerative change of the lumbar apophyseal joints.. No suspicious osteolytic or osteoblastic lesion s are noted. IMPRESSION: Cardiomegaly Severe patchy consolidating infiltrates throughout both lungs, likely reactive hilar or mediastinal l ymphadenopathy Small pleural effusions Anasarca Cholelithiasis Mild ascites Diverticulosis of left colon; no evidence of diverticulitis Sternal and bilateral rib fractures Reviewed, dictated and finalized at [facility]. Reviewed, dictated and finalized at location A. IMPRESSION: Cardiomegaly Severe patchy consolidating infiltrates throughout both lungs, likely reactive hilar or mediastinal lymphadenopathy Small pleural effusions Anasarca Cholelithiasis Mild ascites Diverticulosis of left colon; no evidence of diverticulitis Sternal and bilateral rib fractures
--- NOTE | ~2021-07-11 | XR_ITS ---
XR abdomen NG/feed tube insert DATE: 07/13/2021 08:52 INDICATION: NG tube placement TECHNIQUE: Portable supine AP view on 07/13/2021 at 0820 hours COMPARISON: None FINDINGS: NG tube tip is in the lower body of the stomach, the proximal side-port approximately 13 cm distal to the diaphragmatic hiatus. Extensive patchy bilateral pulmonary infiltrates. IMPRESSION: Tip of NG tube in lower body of stomach Reviewed, dictated and finalized at [facility]. Reviewed, dictated and finalized at location A.
--- NOTE | ~2021-07-11 | XR_ITS ---
EXAMINATION: XR abdomen obstructive series DATE: 07/14/2021 10:57 INDICATION: Vomiting. Ileus. TECHNIQUE: Supine and upright views of the abdomen. FINDINGS: 07/13/2021 The visualized lung parenchyma is normal.. There is a nonobstructive bowel gas pattern. Gas and stool are seen throughout the colon to the level of the rectum. There is no free air. NG tube in the stom ach. Moderate colonic fecal loading. There is diffuse bilateral airspace disease which may represent edema or pneumonia. IMPRESSION: 1. No acute abdominal abnormality. 2: NG tube in the stomach. 3: Diffuse bilateral airspace disease which may represent edema or pneumonia. Reviewed, dictated and finalized at location A.
--- NOTE | ~2021-07-11 | XR_ITS ---
XR chest 1V portable 07/23/2021 10:54 Indication: Hypoxia Procedure: AP portable chest Comparison: Comparison to multiple prior studies sequentially, with oldest reviewed study dated 06/2021. Findings: Feeding tube tip in the stomach. Right IJ central venous catheter tip in the SVC. There is bilateral widespread bilateral airspace dis ease. No pleural effusion or pneumothorax. No acute osseous abnormality. Impression: 1: Widespread asymmetric bilateral airspace disease which may represent edema or pneumonia. Reviewed, dictated and finalized at location B. Impression: 1: Widespread asymmetric bilateral airspace disease which may represent edema o r pneumonia.
--- NOTE | ~2021-07-11 | US_ITS ---
EXAMINATION:US venous doppler LE BI INDICATION:Leg swelling TECHNIQUE: Multiple grayscale, color flow and Doppler images of the right and left lower extremity de ep venous systems were obtained and reviewed. COMPARISON:07/06/2021 FINDINGS: The common femoral, superficial femoral and popliteal veins demonstrate normal respiratory variation, augmentation and compressibility. Color flow is also seen within the posterior tibial, pe roneal, greater saphenous and profunda veins. No evidence for DVT in the right peroneal vein seen on prior examination. IMPRESSION: 1: No lower extremity deep venous thrombosis. Reviewed, dictated and finalized at location A.
--- NOTE | ~2021-07-11 | XR_ITS ---
EXAMINATION: XR chest 1V portable DATE: 07/20/2021 05:50 INDICATION: Bilateral infiltrates. TECHNIQUE: A single frontal view of the chest was obtained. COMPARISON: Chest single view 07/19/2021, 01/26/2021, chest CT 07/13/2021, 06/20/2021 FINDINGS: There are airspace opacities and coarse interstitial opacities in all lung zones bilaterall y. No pleural effusion or pneumothorax. Cardiomegaly is noted. A right internal jugular central venou s catheter is seen with tip at the superior cavoatrial junction. The nasoenteric tube tip is beyond t he inferior margin of the radiograph, but at least to the stomach. There is an old healed fracture of proximal right humerus. There are old healed right rib fractures. IMPRESSION: 1. Diffuse lung disease with improvement at right lung base, consistent with pneumonia versus pulmona ry edema superimposed on chronic interstitial lung disease. 2. Cardiomegaly. Reviewed, dictated and finalized at location A. IMPRESSION: 1. Diffuse lung disease with improvement at right lung base, consistent with pn eumonia versus pulmonary edema superimposed on chronic interstitial lung diseas e. 2. Cardiomegaly.
--- NOTE | ~2021-07-11 | CT_ITS ---
EXAMINATION: CT brain wo con DATE: 07/13/2021 10:32 INDICATION: Altered mental state. Status post cardiac arrest. TECHNIQUE: Computed tomography (CT) of the head was performed without intravenous contrast. The mA wa s adjusted according to patient size. Iterative reconstruction technique was employed. Exam dose: 68 1.00 mGy-cm total exam DLP. COMPARISON: 05/03/2019 CT brain FINDINGS: Examination is mildly limited by motion artifact, primarily at the high convexity. Old posteroinferior left cerebellar hemispheric infarcts Old left frontal cerebrovascular accident. Bilateral vertebral artery, basilar artery and bilateral carotid siphon internal carotid artery calci fications. There is prominent diminished attenuation cerebral white matter, likely due to chronic sma ll vessel ischemic changes. There is a subacute focal left occipital cerebrovascular accident, new since 04/23/2019. No intracranial mass lesion or hemorrhage or other cerebrovascular accident is evident. No midline sh ift or mass effect., stable since 04/23/2019. No subdural or epidural hematoma. The mastoid air cells and paranasal sinuses are normally developed and aerated. No fracture or bone destruction of the cranial vault. Orogastric and endotracheal tubes are noted. 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 Reviewed, dictated and finalized at location A. 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
--- NOTE | ~2021-07-11 | XR_ITS ---
XR chest 1V portable 07/16/2021 05:09 Indication: Acute respiratory failure Procedure: AP portable chest Comparison: 07/13/2021 Findings: Cardiomegaly. Endotracheal tube tip 1.4 cm above the sunny. NG tube in the stomach. Persis tent diffuse bilateral airspace disease. No pneumothorax. No significant effusion. Impression: 1: Unchanged diffuse bilateral airspace disease, edema versus pneumonia. Reviewed, dictated and finalized at location A. Impression: 1: Unchanged diffuse bilateral airspace disease, edema versus pneumonia.
--- NOTE | ~2021-07-11 | XR_ITS ---
XR chest 1V portable 07/14/2021 05:36 Indication: Acute respiratory failure Procedure: AP portable chest Comparison: Comparison to multiple prior studies sequentially, with oldest reviewed study dated 07/10. Findings: Endotracheal tube tip 2.1 cm above the sunny. Large bore right IJ central venous catheter tip near the cavoatrial junction. NG tube in the stomach. Unchanged diffuse bilateral airspace diseas e. No significant effusion or pneumothorax. There is an old healed right humeral neck fracture. No ac jose osseous abnormality. Impression: 1: Unchanged diffuse bilateral airspace disease which may represent pneumonia and/or edema. Reviewed, dictated and finalized at location A. Impression: 1: Unchanged diffuse bilateral airspace disease which may represent pneumonia a nd/or edema.
[2021-07-11 19:54] VITALS: BP 158/75; PULSE 69; RESP 16; TEMP 36.7; O2SAT 88
[2021-07-11 20:00] LABS: Glucose Point of Care 314 mg/dl (65-105)
[2021-07-11 20:06] LABS: Basophils Absolute Auto 0.1 K/mm3 (0.0-0.1); Eosinophils Absolute Auto 0.2 K/mm3 (0-0.3); Eosinophils Percent Auto 2.7 % (0-4.4); Hematocrit 28.2 % (37.0-47.0); Hemoglobin 8.9 g/dL (12.0-15.0); Immature Granulocyte Absolute 0.04 K/mm3 (0.00-0.031); Immature Granulocyte Percent A 0.7 % (0-0.5); Lymphocytes Absolute Auto 0.84 K/mm3 (0.9-3.2); Lymphocytes Percent Auto 14.1 % (18.3-44.2); Mean Corpuscular HGB Conc 31.6 g/dl (32-36); Mean Corpuscular Hemoglobin 31.2 pg (26-34); Mean Corpuscular Volume 98.9 fl (80-100); Mean Platelet Volume 10.9 fl (7.4-10.4); Monocytes Absolute Auto 0.8 K/mm3 (0.1-0.6); Neutrophils Percent Auto 67.5 % (45.5-73.1); Platelet Count Result 185 k/mm3 (150-375); Red Blood Count 2.85 M/mm3 (4.2-5.4); Red Cell Distribution Width 16.7 % (11.5-14.5); White Blood Count 5.9 K/mm3 (4.5-10.0)
[2021-07-11 20:14] LABS: Lactic Acid Reflex 0.9 mmol/L (0.7-2.0)
[2021-07-11 20:15] LABS: Alanine Aminotransferase 10 U/L (6-35); Albumin Level 2.9 g/dL (3.5-5.1); Alkaline Phosphatase 52 U/L (38-126); Anion Gap 9 mmol/L (8-16); Aspartate Amino Transferase 22 U/L (14-36); Bilirubin,Total 0.4 mg/dL (0.2-1.3); Blood Urea Nitrogen 66 mg/dL (7-17); Calcium 7.9 mg/dL (8.4-10.2); Carbon Dioxide 26 mmol/L (22-30); Chloride 97 mmol/L (98-107); Estimated CRCL calculation 10 ml/min; Estimated Glomerular Filt Rate 10; Glucose 301 mg/dL (65-110); Potassium 4.8 mmol/L (3.4-5.0); Sodium 132 mmol/L (137-145)
--- NOTE | 2021-07-11 20:32 | ED.GENADULT ---
HPI - General Adult General Chief complaint: Weakness Stated complaint: increased lethargy increased blood glucose History of Present Illness HPI narrative: 70-year-old female presenting to the emergency department for evaluation of increased generalized weakness and fatigue along with hyperglycemia. Patient was recently admitted and discharged from [facility] for similar complaint. Patient does have history of chronic kidney disease and does have congestive heart failure. During her most recent stay there was a nephrology consult for the purpose of attempting to balance her baseline in the use with her hypervolemia. During her last stay they were considering doing dialysis but patient did improve with persistent diuretics. Patient presents to the ED for evaluation of worsening peripheral edema including the left arm and left leg. Related Data Home Medications Medication Instructions Recorded Confirmed atorvastatin 40 mg tablet 40 mg PO QPM 12/29/18 07/05/21 carvedilol 25 mg tablet 25 mg PO BID 01/27/21 07/05/21 amlodipine 10 mg tablet 10 mg PO DAILY 03/17/21 07/05/21 aspirin 81 mg tablet,delayed 81 mg PO HS 03/17/21 07/05/21 release insulin glargine 100 unit/mL 10 unit subcut HS 03/20/21 07/05/21 subcutaneous solution acetaminophen 500 mg tablet 500 mg PO Q6H PRN Pain 06/20/21 07/05/21 albuterol sulfate 90 mcg/actuation 2 puff inhalation QID PRN 06/20/21 07/05/21 aerosol inhaler Shortness Of Breath cholecalciferol (vitamin D3) 125 125 mcg PO DAILY 06/20/21 07/05/21 mcg (5,000 unit) tablet insulin lispro 100 unit/mL 1 sliding scale dose subcut 06/20/21 07/05/21 subcutaneous pen (Humalog KwikPen USEASDIRECTD (U-100) Insulin) insulin lispro 100 unit/mL 4 unit subcut TIDWM 06/20/21 07/05/21 subcutaneous pen (Humalog KwikPen (U-100) Insulin) ipratropium 0.5 mg-albuterol 3 mg 3 ml inhalation Q6H PRN Shortness 06/20/21 07/05/21 (2.5 mg base)/3 mL nebulization Of Breath soln isosorbide 20 mg-hydralazine 37.5 2 tablet PO TID 06/20/21 07/05/21 mg tablet (BiDil) mirtazapine 15 mg tablet 15 mg PO HS 06/20/21 07/05/21 multivitamin 1 tablet PO DAILY 06/20/21 07/05/21 nystatin 100,000 unit/gram topical 1 applic topical TID 06/20/21 07/05/21 powder pantoprazole 40 mg tablet,delayed 40 mg PO DAILY 06/20/21 07/05/21 release patiromer calcium sorbitex 8.4 8.4 g PO DAILY 06/20/21 07/05/21 gram oral powder packet (Veltassa) polyethylene glycol 3350 17 17 g PO DAILY PRN Constipation 06/20/21 07/05/21 gram/dose oral powder (Miralax) Allergies Allergy/AdvReac Type Severity Reaction Status Date / Time tramadol AdvReac Severe NAUSEA Verified 07/05/21 12:07 codeine AdvReac Intermediate MAKES HER Verified 07/05/21 12:07 FEEL BAD hydrocodone [From [place]] AdvReac Vomiting Verified 07/05/21 12:07 Review of Systems Review of Systems: CONSTITUTIONAL: Generalized EYES: Denies visual changes, redness, or discharge. ENT: Denies rhinorrhea, congestion, sore throat, or otalgia. CARDIOVASCULAR: Worsening edema RESPIRATORY: Shortness of breath GASTROINTESTINAL: Denies abdominal pain, nausea, vomiting, or diarrhea. GENITOURINARY: Denies dysuria or hematuria. SKIN: Denies rash or itching. MUSCULOSKELETAL: Denies back pain, joint pain, or myalgia. NEUROLOGIC: Denies headache, numbness, or weakness. FOR[facility]LY [facility] Past Medical History Medical History (Updated 07/11/21 @ 21:30 by César Goldman MD) Anemia of chronic disease Aortic valve stenosis Moderate to severe on cardiac catheterization in 12/2019. Carotid stenosis (12/2018) Bilateral carotid stenosis 50-69%. Chronic kidney disease, stage IV (severe) Chronic respiratory failure with hypoxia, on home oxygen therapy Colon polyps Colonoscopy in August 2017 showing internal hemorrhoids. Congestive heart failure 07/03/2021 echo: Normal LV systolic function, EF 50 to 55%. Increased LV wall thickness. Grade 2 diastolic dysfunction. Reduced RV systolic functio
[2021-07-11 20:57] LABS: SARS-CoV-2 RNA PCR Negative
[2021-07-11 21:04] LABS: NT Pro B Type Natriuretic Pept > 35000 pg/mL (5-100); Troponin I 0.041 ng/mL (0.000-0.034)
--- NOTE | 2021-07-11 21:09 | ECG_ITS ---
Measurements Intervals [place] Rate: 64 P: 32 OK: 196 QRS: 10 QRSD: 151 T: 30 QT: 437 QTc: 453 Interpretive Statements SINUS RHYTHM RIGHT BUNDLE BRANCH BLOCK ABNORMAL ECG Electronically Signed On 07-12-2021 7:10:06 CDT by Levon Azevedo D.O.
[2021-07-11 21:15] LABS: Appearance Urine Clear (Clear); Bilirubin Urine Negative (Negative); Blood Urine Negative (Negative); Color Urine Yellow (Yellow); Glucose Urine UA Trace mg/dL (Negative); Ketones Urine Trace mg/dL (Negative); Leukocyte Esterase Ur Negative LEU/UL (Negative); Nitrate Urine Negative (Negative); Protein Urine 1+ mg/dL (Negative); Urobilinogen Urine 0.2 mg/dL (<2.0)
[2021-07-11 21:18] LABS: RBC Urine 0-2 /hpf (0-2); Squamous Epithelial Cell Urine Rare /hpf (Few); WBC Urine 0-3 /hpf
[2021-07-11 21:19] LABS: Add Urine Microscopic? YES
[2021-07-11 21:24] VITALS: BP 116/53; PULSE 65; RESP 16; O2SAT 100
--- NOTE | 2021-07-11 21:30 | PM.IMHP ---
H&P: HPI History of Present Illness Date/Time: 07/11/21 21:30 Chief Complaint: generalized weakness Narrative: 70-year-old female with past medical history significant for chronic kidney disease, chronic respiratory failure on home O2, hyperlipidemia, hypertension, obstructive sleep apnea on CPAP, severe pulmonary hypertension, diastolic heart failure, grade 2, cor pulmonale with moderate aortic valve stenosis, recently discharged yesterday after developing cardiorenal syndrome from IV diuresis and being discharged back on home p.o. diuretics. After being discharged, patient has lower extremity swelling and difficulty breathing dramatically increased. She was complaining of shortness of breath, generalized weakness, fatigue and hyperglycemia. In the ER, patient was given IV Bumex. Chest x-ray showed pulmonary congestion and possible underlying pneumonia. However, patient's CBC was normal and she was afebrile so antibiotics were not started. Due to her hyperglycemia she was given 4 units of IV insulin. Nephrology was consulted from the ER for diuresis and concern for possible dialysis. Patient was discharged with a hemoglobin of 9.4 with down to 8.9 today. Suspect this is dilutional secondary to hypervolemic status. Sodium went down to 132 from 03/15 5 yesterday. Creatinine went up to 4.2 from 3.3 yesterday. Troponin was also elevated, likely secondary to kidney failure as patient did not have any chest pain. Review of Systems Review of Systems: Twelve point review of systems was reviewed and is negative except as noted in the HPI [facility] Past Medical History Medical History Anemia of chronic disease Aortic valve stenosis Moderate to severe on cardiac catheterization in 12/2019. Carotid stenosis (12/2018) Bilateral carotid stenosis 50-69%. Chronic kidney disease, stage IV (severe) Chronic respiratory failure with hypoxia, on home oxygen therapy Colon polyps Colonoscopy in August 2017 showing internal hemorrhoids. Congestive heart failure 07/03/2021 echo: Normal LV systolic function, EF 50 to 55%. Increased LV wall thickness. Grade 2 diastolic dysfunction. Reduced RV systolic function. Moderate aortic valve stenosis/regurgitation. Severe pulmonary hypertension, PASP 74 mmHg. Hand fracture Hyperlipidemia Hypertension Lymphedema bilateral lower extremities left greater than right Mitral valve prolapse Moderate to severe aortic stenosis. Mitral valve regurgitation. Obstructive sleep apnea on CPAP Osteoporosis Post-menopausal Retinopathy Severe pulmonary hypertension PASP 74 mmHg on echo in June 2021. Type 2 diabetes mellitus with insulin therapy Valvular heart disease Surgical History Surgical History History of angiography Right leg without intervention. History of bilateral cataract extraction (10/2019) History of bilateral tubal ligation History of cardiac catheterization (12/2019) Mild coronary artery disease, moderate to severe aortic valve stenosis. Status post laser cataract surgery of both eyes Family History Family History Mother Hypertension DVT (deep venous thrombosis) Vertigo Father Hypertension Cerebrovascular accident Sibling Graves disease Vertigo Sibling Family history of thyroid disease Family history of obesity Mother Family history of cataracts Other Family history of arthritis Family history of hearing loss Social History Social History Social History: Ms. Dwyer is and lives in her own home in [place]. She has 3 daughters. Her daughter's names are Sera Moreno, Ava Amador, and Danyell Resendez. She denies alcohol, tobacco, and drug use. 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 She has been sin
[2021-07-11] MEDS: INSULIN HUMAN REGULAR (*BKC) 100 UNITS/ML IV PUSH (22:04)
[2021-07-11] MEDS: BUMETANIDE INJ 1 MG/4 ML VIAL 2 MG IV PUSH (22:06)
[2021-07-11 22:14] VITALS: BP 121/51; PULSE 67; RESP 19; O2SAT 97
[2021-07-11 22:40] VITALS: BP 119/52; PULSE 80; RESP 20; TEMP 36.3; O2SAT 100
[2021-07-11 22:52] VITALS: BMI 27.9
[2021-07-11 22:54] VITALS: BMI 27.6
[2021-07-11 23:00] VITALS: PULSE 68
--- NOTE | 2021-07-11 23:33 | ADMIMU ---
This patient, Mine Dwyer, was admitted to IMU status, and placed in IMU Room 205-02 at 2240. Patient/family oriented to hospital policies and general routines including ID bracelet, bed and alarms, visiting hours, pain management, procedures, bathroom and other care routines, personal items, smoking policy, room service/diet, and visiting hours. Information on how to activate the Rapid Response Team has been discussed. Patient/Family are encouraged to report perceived risks to care and to ask questions if they do not understand what they are told or what they should do.
[2021-07-12] VITALS (20 sets, daily range): BP systolic 100–124; BP diastolic 33–56; PULSE 60–72; RESP 12–20; TEMP 36.4–36.8; O2SAT 96–100
[2021-07-12 07:54] LABS: Glucose Point of Care 342 mg/dl (65-105)
[2021-07-12] MEDS: BUMETANIDE INJ 1 MG/4 ML VIAL IV PUSH ×2 (09:10→17:55)
--- NOTE | 2021-07-12 10:15 | PM.IMPN ---
Progress Note: A&P Assessment and Plan (1) CHF exacerbation: Qualifiers: Heart failure type: unspecified Qualified Code(s): I50.9 - Heart failure, unspecified Code(s): I50.9 - Heart failure, unspecified Status: Acute Assessment and Plan: aggressive diuresis, Cardiology consult pending (2) CKD (chronic kidney disease): Qualifiers: Chronic kidney disease stage: unspecified stage Qualified Code(s): N18.9 - Chronic kidney disease, unspecified Code(s): N18.9 - Chronic kidney disease, unspecified Status: Acute Assessment and Plan: acute kidney injury superimposed on chronic kidney disease, concerning for high risk of dialysis due to hypervolemic status requiring diuresis, nephrology consult pending (3) Chronic respiratory failure with hypoxia, on home oxygen therapy: Code(s): J96.11 - Chronic respiratory failure with hypoxia; Z99.81 - Dependence on supplemental oxygen Status: Acute (4) Type 2 diabetes mellitus with hyperglycemia: Code(s): E11.65 - Type 2 diabetes mellitus with hyperglycemia Status: Acute Assessment and Plan: Accu-Cheks plus sliding scale insulin (5) Hyponatremia: Code(s): E87.1 - Hypo-osmolality and hyponatremia Status: Acute Assessment and Plan: likely secondary to hypervolemia, anticipate this will improve as patient becomes euvolemic Additional Plan 07/12/2021 Patient is gradually getting better. Will continue current treatment . Physical therapy evaluation. 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 Subjective Date/time seen: 07/12/21 10:15 Patient was seen during the morning rounds today. Patient is feeling slightly better. Decreased shortness of breath. No chest pain. Mood stable. Review of Systems Review of Systems: All systems reviewed & are unremarkable except as noted in HPI and below (The history and physical examination.) Exam Narrative: General: Patient resting comfortably in bed, no acute distress HEENT: Atraumatic, normocephalic, mucous membranes moist CV: Regular rate and rhythm, S1, S2, no murmurs rubs or gallops noted Lungs: diminished breath sounds throughout, fine crackles at bases Abdomen: Soft, nontender, nondistended Extremities: Normal to inspection, significant bilateral pitting edema noted Skin: No rashes noted, no lesions or wounds seen Psych: Euthymic, normal affect Neuro: Cranial nerves 2-12 grossly intact, strength 5/5 upper and lower extremities noted Objective Data Vital Signs Vital Signs: Vital Signs - 24 hr 07/11/21 19:54 07/11/21 21:24 07/11/21 21:24 Temperature 36.7 C Pulse Rate 69 65 Respiratory Rate 16 16 Blood Pressure 158/75 H 116/53 L Pulse Oximetry 88 L 100 100 Oxygen Delivery Room Air Nasal Cannula Oxygen Flow Rate 4 07/11/21 22:14 07/11/21 22:40 07/12/21 00:27 Temperature 36.3 C L Pulse Rate 67 80 66 Respiratory Rate 19 20 14 Blood Pressure 121/51 L 119/52 L Pulse Oximetry 97 100 97 Oxygen Delivery Autopap Oxygen Flow Rate 07/12/21 00:29 07/12/21 00:00 07/11/21 23:00 Temperature Pulse Rate 67 68 Respiratory Rate Blood Pressure Pulse Oximetry 97 Oxygen Delivery CPAP Oxygen Flow Rate 3 07/12/21 00:00 07/12/21 02:00 07/12/21 02:34 Temperature Pulse Rate 61 61 Respiratory Rate 12 Blood Pressure Pulse Oximetry 100 96 Oxygen Delivery Nasal Cannula Autopap Oxygen Flow Rate 4 07/12/21 03:53 07/12/21 04:00 07/12/21 04:00 Temperature 36.6 C Pulse Rate 66 63 Respiratory Rate 20 Blood Pressure 103/42 L Pulse Oximetry 99 99 Oxygen Delivery Nasal Cannula Oxygen Flow Rate 4 07/12/21 06:00 07/12/21 07:56 07/12/21 08:00 Temperature 36.8 C Pulse Rate 64 65 Respiratory Rate 20 Blood Pressure 100/40 L Pulse Oximetry 100 100 Oxygen Delivery Nasal Cannula Oxygen Flow Rate 4 Intake/Output Intake/Output: Inta
[2021-07-12 11:16] LABS: Glucose Point of Care 454 mg/dl (65-105)
--- NOTE | 2021-07-12 11:28 | PCPTNOTE ---
attempted PT evaluation 1120; pt's blood sugar ~ 500; pt lethargic. HOLD PT evaluation at this time.
--- NOTE | 2021-07-12 12:10 | PCOTNOTE ---
Attempted PT evaluation 1145. Per RN, patient's blood sugar ~ 500 and she is lethargic at this time. HOLD OT evaluation at this time. Will continue to attempt.
[2021-07-12] MEDS: APIXABAN 5 MG TABLET PO ×2 (12:13→21:26)
[2021-07-12] MEDS: PANTOPRAZOLE 40 MG TABLET PO (12:13)
[2021-07-12] MEDS: MULTIVITAMINS THERAPEUTIC TAB (*BKC) 1 TABLET PO (12:14)
[2021-07-12] MEDS: CHOLECALCIFEROL 1,000 UNITS TABLET 5000 UNITS PO (12:14)
[2021-07-12] MEDS: INSULIN ASPART (*BKC) 100 UNITS/ML SUB-Q ×4 (12:15→17:54)
[2021-07-12] MEDS: ACETAMINOPHEN 500 MG TABLET PO ×2 (12:22→18:51)
--- NOTE | 2021-07-12 12:24 | PM.CNNEP ---
Assessment and Plan Assessment and plan (1) GISELLE (acute kidney injury): Code(s): N17.9 - Acute kidney failure, unspecified Status: Acute Assessment and Plan: unclear on etiology given fairly recent discharge from hospital due to exacerbation of CHF or something else(?) follow renal function closely in the setting of diuresis creatine has fluctuated to extremes in the last few years cannot deny the possibility of kidney disease progression as well (2) Chronic kidney disease, stage IV (severe): Code(s): N18.4 - Chronic kidney disease, stage 4 (severe) Status: Chronic Assessment and Plan: baseline creatine averages around 2.0 - 2.7mg/dl thought to be secondary to her HTN, DM, cardiac/vascular disease and need for diuretics to maintain her volume status it was felt on last hospitalization that a higher creatinine would have to be accepted to achieve some degree of euvolemia.... her creatinine was running around 3.1 - 3.3mg/dl at that time and on discharge she remains at risk for PIER WORKER/dialysis.... (3) Acute on chronic diastolic heart failure: Code(s): I50.33 - Acute on chronic diastolic (congestive) heart failure Status: Acute Assessment and Plan: suspected based on CXR findings, exam, and laboratory testing complicated by her valvular heart disease as well on IV diuretics follow daily weights, I/Os, and respiratory status - may need meehan catheter for accurate I/Os consider Cardiology consultation given recurrent admissions.....unclear if anything more can be done (4) Hypertension: Code(s): I10 - Essential (primary) hypertension Status: Chronic Assessment and Plan: reasonable control - an element of overcontrol(?) leading to higher creatinine(?) follow trend of hemodynamics (5) Anemia: Code(s): D64.9 - Anemia, unspecified Status: Chronic Assessment and Plan: due to GISELLE, CKD, and acute illness responded to Epogen therapy on last hospitalization follow trend of H/H may need to resume Epogen as well (6) Diabetes: Qualifiers: Diabetes mellitus complication status: with other specified complication 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 History of Present Illness Reason for Consult Consult date: 07/12/21 Reason for consult: acute renal failure (on chronic kidney disease) Chief Complaint Chief complaint: Peripheral Edema,CHF,Chronic Kidney Disease History of Present Illness Narrative: The patient is a 70-year-old female with an extensive past medical history as outlined below who presented to [facility] Emergency room with complaints of shortness of breath, fatigue + generalized weakness, and hyperglycemia. It should be noted the patient was just discharged approximately 24 -48 hours ago after being hospitalized for the same symptoms. During that hospitalization, she was aggressively diuresed in effort to compensate for her CHF and was also treated for pneumonia as well. During that hospitalization, her blood sugar control, shortness of breath (secondary to CHF and pneumonia), and fatigue significantly improved by the time of discharge. Unfortunately, after her most recent hospital discharge, she reported that her lower extremity edema/swelling as well as her breathing dramatically worsened. These issues apparently led to the recurrence of her shortness of breath, fatigue, and hyperglycemia. She per presented back to the emergency room in [facility] for further evaluation. Workup and evaluation emergency room de
--- NOTE | 2021-07-12 12:24 | P.CONNP_ITS ---
Assessment and Plan Assessment and plan (1) GISELLE (acute kidney injury): Code(s): N17.9 - Acute kidney failure, unspecified Status: Acute Assessment and Plan: * unclear on etiology given fairly recent discharge from hospital * due to exacerbation of CHF or something else(?) * follow renal function closely in the setting of diuresis * creatine has fluctuated to extremes in the last few years * cannot deny the possibility of kidney disease progression as well (2) Chronic kidney disease, stage IV (severe): Code(s): N18.4 - Chronic kidney disease, stage 4 (severe) Status: Chronic Assessment and Plan: * baseline creatine averages around 2.0 - 2.7mg/dl * thought to be secondary to her HTN, DM, cardiac/vascular disease and need for diuretics to maintain her volume status * it was felt on last hospitalization that a higher creatinine would have to be accepted to achieve some degree of euvolemia.... * her creatinine was running around 3.1 - 3.3mg/dl at that time and on discharge * she remains at risk for CROP ROLLER/dialysis.... (3) Acute on chronic diastolic heart failure: Code(s): I50.33 - Acute on chronic diastolic (congestive) heart failure Status: Acute Assessment and Plan: * suspected based on CXR findings, exam, and laboratory testing * complicated by her valvular heart disease as well * on IV diuretics * follow daily weights, I/Os, and respiratory status - may need meehan catheter for accurate I/Os * consider Cardiology consultation given recurrent admissions.....unclear if anything more can be done (4) Hypertension: Code(s): I10 - Essential (primary) hypertension Status: Chronic Assessment and Plan: * reasonable control - an element of overcontrol(?) leading to higher creatinine(?) * follow trend of hemodynamics (5) Anemia: Code(s): D64.9 - Anemia, unspecified Status: Chronic Assessment and Plan: * due to GISELLE, CKD, and acute illness * responded to Epogen therapy on last hospitalization * follow trend of H/H * may need to resume Epogen as well (6) Diabetes: Qualifiers: Diabetes mellitus complication status: with other specified complication Diabetes mellitus alf insulin use: with alf use Diabetes mellitus type: type 2 Qualified Code(s): E11.69 - Type 2 diabetes mellitus with other specified complication; Z79.4 - 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 History of Present Illness Reason for Consult Consult date: 07/12/21 Reason for consult: acute renal failure (on chronic kidney disease) Chief Complaint Chief complaint: Peripheral Edema,CHF,Chronic Kidney Disease History of Present Illness Narrative: The patient is a 70-year-old female with an extensive past medical history as outlined below who presented to [facility] Emergency room with complaints of shortness of breath, fatigue + generalized weakness, and hyperglycemia. It should be noted the patient was just discharged approximately 24 -48 hours ago after being hospitalized for the same symptoms. During that hospi talization, she was aggressively diuresed in effort to compensate for her CHF and was also treated for pneumonia as well. During that hospitalization, her blood sugar control, shortness of breath (secondary to CHF and pneumonia), and fatigue significantly improved by the time of
[2021-07-12] MEDS: TOLNAFTATE 1% POWDER 45 GM BTL 1 APPLIC TOPICAL ×2 (14:50→21:26)
[2021-07-12 15:11] LABS: Glucose Point of Care 368 mg/dl (65-105)
[2021-07-12 16:25] LABS: Glucose Point of Care 360 mg/dl (65-105)
[2021-07-12] MEDS: ATORVASTATIN 40 MG TABLET PO (17:53)
[2021-07-12] MEDS: carvediloL 25 MG TABLET PO (17:54)
[2021-07-12 20:18] LABS: Glucose Point of Care 275 mg/dl (65-105)
[2021-07-12] MEDS: MIRTAZAPINE 15 MG TABLET PO (21:26)
[2021-07-12] MEDS: ASPIRIN 81 MG ENTERIC TABLET PO (21:26)
[2021-07-12] MEDS: INSULIN GLARGINE (*BKC) 100 UNITS/ML 10 UNITS SUB-Q (21:26)
--- NOTE | 2021-07-12 22:56 | PCRCNOTE ---
Patient refused to wear CPAP tonight. States she can't wear the mask and she didn't sleep at all last night because of it. States she would rather just sleep wit the oxygen in her nose. [employer] informed her to let her RN know if she changed her mind and decided to wear it and I would come place it on her.
[2021-07-13] VITALS (41 sets, daily range): BP systolic 72–132; BP diastolic 47–87; PULSE 46–76; RESP 20–24; TEMP 32.9–38.2; O2SAT 93–100
--- NOTE | 2021-07-13 | ECHO_ITS ---
Patient Info Name: Mine Dwyer Age: 70 years : 1950 Gender: Female Ht: 62 in Wt: 154 lbs BSA: 1.77 m2 HR: 46 bpm BP: 128 / 56 mmHg Heart Rhythm: Bradycardia, Sinus Rhythm Technical Quality: Fair Exam Date: 07/13/2021 11:42 AM Exam Location: [facility] Pulmonary Patient Status: Inpatient Admit Date: 07/13/2021 Staff Ordering Physician: Rajendra Simon MD Fitting Room Supervisor: Ivette Bateman RDCS Attending Provider: Jaida Mancia DO Exam Type: CA echo doppler color flow Study Info Indications I46.8 - Cardiac arrest due to other underlying condition Complete two-dimensional, color flow and Doppler transthoracic echocardiogram is performed. Summary 1. Complete two-dimensional, color flow and Doppler transthoracic echocardiogram is performed. 2. There is moderate aortic valve stenosis with a peak velocity of 276 cm/s, mean gradient of 9 mmHg, and aortic valve area of 1.0 cm2. 3. Left ventricular chamber dimension is normal. 4. Left ventricular systolic function is normal, estimated at 60-65%. 5. There is moderately increased left ventricular wall thickness. 6. Left ventricular septal wall motion is abnormal with septal motion related to bundle branch block. 7. The left ventricular diastolic function is grade II diastolic dysfunction. 8. There is moderate aortic valve regurgitation. 9. There is severe tricuspid valve regurgitation. 10. Severe pulmonary hypertension, estimated pulmonary arterial systolic pressure is 71 mmHg. Left Ventricle Left ventricular chamber dimension is normal. Left ventricular systolic function is normal, estimated at 60-65%. There is moderately increased left ventricular wall thickness. Left ventricular septal wall motion is abnormal with septal motion related to bundle branch block. The left ventricular diastolic function is grade II diastolic dysfunction. Right Ventricle Right ventricular chamber dimension is mildly enlarged. Right ventricular systolic function is normal. Left Atria Left atrial chamber dimension is mildly enlarged. Right Atria Right atrial chamber dimension is normal. Aortic Valve There is moderate aortic valve stenosis with a peak velocity of 276 cm/s, mean gradient of 9 mmHg, and aortic valve area of 1.0 cm2. The aortic valve is trileaflet. There is moderate aortic valve regurgitation. There is mild aortic valve calcification. Pulmonic Valve The pulmonic valve is not well visualized. There is mild pulmonic regurgitation. Mitral Valve The mitral valve has thickened leaflets. There is mild mitral valve regurgitation. The mitral valve annulus is severely calcified. Tricuspid Valve The tricuspid valve leaflets are normal. There is severe tricuspid valve regurgitation. Severe pulmonary hypertension, estimated pulmonary arterial systolic pressure is 71 mmHg. Pericardium/Pleural The pericardium appears normal. There is no pericardial effusion. Inferior Vena Cava Normal inferior vena cava with >50% collapse upon inspiration consistent with normal right atrial pressure, 5 mmHg. Aorta The aortic root size at the sinus of Valsalva is normal. There is mild aortic atherosclerosis. Left Ventricular Outflow Tract Name Value Normal LVOT 2D LVOT Di
[2021-07-13] MEDS: ACETAMINOPHEN 500 MG TABLET PO (04:58)
[2021-07-13] MEDS: TOLNAFTATE 1% POWDER 45 GM BTL 1 APPLIC TOPICAL ×3 (04:59→20:19)
--- NOTE | 2021-07-13 08:15 | PC.NURSE ---
This patient, Mine Dwyer, was received from [[id number]] on 07/13/21 at 0815. Patient/family oriented to unit policies and routines report received from Ashley ROSARIO
--- NOTE | 2021-07-13 09:01 | PC.NURSE ---
This patient, Mine Dwyer, was transferred to [ICU 9 ] on 07/13/21 at 0811. Personal belongings sent with patient. Report given to [Christine ROSARIO ]. Appropriate documentation sent with patient.
[2021-07-13 09:25] LABS: Glucose Point of Care 165 mg/dl (65-105)
[2021-07-13 09:25] LABS: Glucose Point of Care 357 mg/dl (65-105)
[2021-07-13 09:25] LABS: Glucose Point of Care < 20 mg/dl (65-105)
[2021-07-13 09:25] LABS: Glucose Point of Care 184 mg/dl (65-105)
[2021-07-13 09:25] LABS: Glucose Point of Care < 20 mg/dl (65-105)
--- NOTE | 2021-07-13 09:26 | ECG_ITS ---
Measurements Intervals [place] Rate: 51 P: 65 TX: 185 QRS: 57 QRSD: 150 T: 86 QT: 508 QTc: 470 Interpretive Statements SINUS BRADYCARDIA RIGHT BUNDLE BRANCH BLOCK BASELINE ARTIFACT- I, II, III, AVR, V1-V2 ABNORMAL ECG Electronically Signed On 07-13-2021 14:09:43 CDT by Levon Azevedo D.O.
[2021-07-13] MEDS: MIDAZOLAM HCL (*CRX) 2 MG/2 ML VIAL (09:32)
--- NOTE | 2021-07-13 09:35 | P.PCNBED_ITS ---
Procedures Intubation Intubation Date: 07/13/21 Intubation Time: 08:00 Consent: Procedure was done emergently as medical necessity has patient had cardiac arrest A pre-procedural Time-Out was completed immediately before starting the procedu re and confirmed: Patient Identification, Site, Procedure, Patient Position and the Availability of Requisite Equipment: Yes Sedative: etomidate (20 mg) Mg given: 20 Laryngoscope: fiber optic video scope ET tube size: 7.5 Tube secured depth (cm): 21 Tube secured location: lips Tube placement confirmation: visualized tube passing through cords, equal breath sounds bilaterally, no breath sounds over epigastrium and confirmation by capnometry Patient tolerated procedure: well Intubation complications: none Additional comments: ETT withdrawn by 2 cm after reviewing chest x-ray.
--- NOTE | 2021-07-13 09:37 | PM.CNCAR ---
Assessment and Plan Assessment and plan (1) PEA (Pulseless electrical activity): Code(s): I46.9 - Cardiac arrest, cause unspecified Status: Acute Assessment and Plan: Secondary to hypoxia and or hypoglycemia. Elevated troponin secondary to hypoxia, hypotension/shock, CPR not secondary to acute coronary syndrome and/or plaque rupture, type 2 infarction. She remains on systemic anticoagulation for right peroneal vein DVT 07/06/2021. Anticoagulation per primary service. Patient is critically ill with multiple comorbidities. Continue supportive care as has been initiated. Will follow with you. (2) Acute and chronic respiratory failure with hypoxia: Code(s): J96.21 - Acute and chronic respiratory failure with hypoxia Status: Acute Assessment and Plan: Status post intubation. Continue mechanical ventilatory support, wean O2 supplementation as appropriate. Defer to Critical Care for further management. Broad-spectrum antibiotics for possible aspiration pneumonia. Agree with IV diuresis as BP permits. Patient has a history of severe pulmonary hypertension (3) Congestive heart failure: Qualifiers: Heart failure type: diastolic Heart failure chronicity: acute on chronic Qualified Code(s): I50.33 - Acute on chronic diastolic (congestive) heart failure Code(s): I50.9 - Heart failure, unspecified Status: Acute Assessment and Plan: Evidence of pulmonary vascular congestion secondary to acute hypoxic respiratory failure, hypoglycemia and shock. Judicious diuresis as BP permits. 2D echo reviewed no significant change compared to prior study early this june. (4) Elevated troponin: Code(s): R77.8 - Other specified abnormalities of plasma proteins Status: Acute Assessment and Plan: Elevated troponin secondary to hypoxia, hypotension/shock, CPR not secondary to acute coronary syndrome and/or plaque rupture, type 2 infarction. No indication for invasive angiography at this time as this was very unlikely the precipitating event for her cardiac arrest. (5) Acute on chronic renal failure: Qualifiers: Acute renal failure type: unspecified Chronic kidney disease stage: stage 4 (severe) Qualified Code(s): N17.9 - Acute kidney failure, unspecified; N18.4 - Chronic kidney disease, stage 4 (severe) Code(s): N17.9 - Acute kidney failure, unspecified; N18.9 - Chronic kidney disease, unspecified Status: Acute Assessment and Plan: Appreciate Nephrology involvement and recommendations. Anticipate patient will require hemodialysis volume management as tolerated. (6) Bradycardia: Code(s): R00.1 - Bradycardia, unspecified Status: Acute Assessment and Plan: Hold beta-kennedy. Telemetry. (7) Pulmonary hypertension: Code(s): I27.20 - Pulmonary hypertension, unspecified Status: Acute Assessment and Plan: Severe, chronic, RVSP 71 mm Hg, severe TR on echo. (8) Hypoglycemia: Code(s): E16.2 - Hypoglycemia, unspecified Status: Acute Assessment and Plan: Corrected, management diabetes mellitus per primary service. (9) Insulin dependent diabetes mellitus: Status: Chronic Assessment and Plan: Per primary service. History of Present Illness History of Present Illness Consult date/time: Date of service: 07/13/21 09:37 Cardiology consultation at the request of Dr. 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
--- NOTE | 2021-07-13 09:40 | WPDPROCEDUR ---
Procedures Hemodialysis Catheter Placement Right IJ: Consent: Consent was obtained from patient's daughter HD Catheter Date: 07/13/21 HD Catheter Time: 09:00 Pre-procedural Time-Out was completed immediately before starting the procedure and confirmed: Patient Identification, Site, Procedure, Patient Position and the Availability of Requisite Equipment.: Yes Patient Position: trendelenburg Patient Placed on Monitor/Pulse Ox: Yes Provider Prep: mask, sterile gown, Max. sterile barrier precautions, cap and hand hygiene Hemodialysis Catheter Prep: Chlorhexidine scrub and sterile full body sheet applied Ultrasound Used for Placement: Yes Hemodialysis Catheter Inserted: triple Length (cm): 16 Depth of Insertion (cm): 16 Post Procedure: sutured in place, good blood return, all ports aspirated, flushed, capped, transparent dressing and aseptic technique maintained throughout procedure Patient Tolerated Procedure: other Complications: other Additional Comments: patient had a very small vein which was collapsing with breathing. Cannulate wean multiple times but unable to keep needle in the lumen. Procedure require multiple attempts finally I was able to advance the wire without any difficulty into the vein. From there onwards procedure was uncomplicated and catheter was inserted without any difficulty.
--- NOTE | 2021-07-13 09:42 | PDCODEBLUE ---
Code Blue Note Code Blue Note Time Arrived at Code Blue: 0747 Initial Rhythm on Arrival: PEA Airway Management: Pt being bagged on arrival Chest Compressions: In process on arrival to bedside Result of Code Blue: Pt transferred to ICU Cardiac Rhythm Post Code: sinus bradycardia Code Blue Summary: responded to paula muller in IMU in patient's room in 203. Arrival patient was being bag ventilated and CPR was being performed. Brief history was obtained from nurse and she reported the patient has history of some chronic kidney disease, congestive heart failure, diabetes. Her blood pressure has been borderline. Blood sugar and it was less than 20. Patient was given 1 amp of D50. CPR was continued patient was in PEA. 1 mg of epinephrine was given. ROSC Was obtained. Patient was in sinus bradycardia. Peripheral IV. Working and mother peripheral IV was placed emergently. Patient's saturations were low in 70. On exam patient has coarse crackles through the lungs. Bloody suction was suction from oral cavity. Patient was awake but confused. She responded on calling her name. Oxygen was applied but despite that his saturation remained low. Patient appeared in florid pulmonary edema. Obviously aspiration could not be ruled out. Considering pushes poor mental status and hypoxia decision was made to intubate patient at that time. I intubated her with 20 mg of etomidate without any complication or difficulty. Post intubation patient was bag ventilated and her sats improved to 100%. Soon she again went into PEA and lost her pulse. CPR was initiated and patient was given 1 mg of epinephrine and ROSC was obtained. Following that patient was in sinus bradycardia and 1 mg of atropine was. No labs were done this morning hence patient was empirically given a bicarbonate and calcium due to her history of chronic kidney disease to treat any potential hyperkalemia. Patient was also given additional 1 amp of dextrose. during the code nursing staff had called patient's daughters who were on their way. Once we obtained pulse and saturation was transferred to ICU. Patient had poor IV access in the form of 1 small peripheral IV needed vasopressors. I also anticipate patient needs hemodialysis as this has been discussed with the patient considering her chronic kidney disease and significant volume overload. I placed a right IJ hemodialysis catheter with additional port for IV access and potential need for hemodialysis after obtaining consent from patient's daughters.
[2021-07-13 09:48] LABS: Alveolar/Arterial O2 Gradient 549.2 mmHg; Fractional Inspired Oxygen 100 %; HCO3 ABG 26.6 mEq/l (22.0-26.0); Oxygen Content ABG 15.9 %vol (16.0-22.0); Oxygen Saturation ABG 98.5 % (95.0-100.0); Oxyhemoglobin 96.9 % THb (90.0-100.0); PCO2 ABG 41.8 mmHg (35.0-45.0); PO2 FiO2 Ratio Arterial Blood 1.22 %; Total Hemoglobin 11.5 g/dL (12.0-18.0); pH ABG 7.422 (7.350-7.450)
[2021-07-13 09:48] LABS: Basophils Absolute Auto 0.1 K/mm3 (0.0-0.1); Basophils Percent Auto 0.4 % (0.2-1.2); Eosinophils Absolute Auto 0.2 K/mm3 (0-0.3); Eosinophils Percent Auto 1.4 % (0-4.4); Hematocrit 31.8 % (37.0-47.0); Immature Granulocyte Absolute 0.18 K/mm3 (0.00-0.031); Immature Granulocyte Percent A 1.4 % (0-0.5); Lymphocytes Absolute Auto 0.67 K/mm3 (0.9-3.2); Lymphocytes Percent Auto 5.2 % (18.3-44.2); Mean Corpuscular HGB Conc 31.4 g/dl (32-36); Mean Corpuscular Hemoglobin 30.9 pg (26-34); Mean Corpuscular Volume 98.1 fl (80-100); Mean Platelet Volume 10.2 fl (7.4-10.4); Monocytes Absolute Auto 0.6 K/mm3 (0.1-0.6); Monocytes Percent Auto 4.5 % (2.6-8.5); Neutrophils Absolute Auto 11.3 K/mm3 (1.3-6.7); Neutrophils Percent Auto 87.1 % (45.5-73.1); Platelet Count Result 202 k/mm3 (150-375); Red Blood Count 3.24 M/mm3 (4.2-5.4)
[2021-07-13 09:49] LABS: Arterial Blood Gas Ventilator rate 24 /MIN; Device VENTILATOR; Modified Allen's Test Pass; Site Drawn RIGHT RADIAL
[2021-07-13 09:50] LABS: Arterial Blood Gas PEEP 8 cmH2O; Arterial Blood Gas Tidal Volume 400 ml; Arterial Blood Gas Vent Mode CMV
[2021-07-13] MEDS: FENTANYL 2,500MCG/NS250ML(*CRX 2,500 MCG/250 ML BAG IV CONT (09:55)
--- NOTE | 2021-07-13 09:55 | WPDCNINT ---
Assessment and Plan Assessment and plan (1) Cardiac arrest: Code(s): I46.9 - Cardiac arrest, cause unspecified Status: Acute Assessment and Plan: Patient had a cardiac arrest this morning which is most likely multifactorial. At that time her blood sugar was less than 20 so hypoglycemia is likely etiology. Patient was also hypoxic with diffuse pulmonary edema. Post resuscitation she was in sinus bradycardia. patient has severe chronic kidney disease and electrolyte abnormalities another possibility Recent echocardiogram reviewed patient is already on anticoagulation check EKG, serial troponins, electrolyte cardiology consulted hold beta-kennedy and other blood pressure medications at this time due to shock will obtain limited echo check CT head chest abdomen pelvis (2) Acute and chronic respiratory failure: Code(s): J96.20 - Acute and chronic respiratory failure, unspecified whether with hypoxia or hypercapnia Status: Acute Assessment and Plan: Acute Respiratory failure secondary to congestive heart failure, pulmonary edema, cardiac arrest, possible aspiration patient emergently intubated during code blue for hypoxia Continue full mechanical ventilation support to prevent hypoxemia/hypercarbia and end organ damage. PCXR reviewed and shows diffuse bilateral infiltrate which are unchanged from presentation Low tidal volume ventilation strategy to prevent volutrauma Check ABG empiric Zosyn for aspiration pneumonia check sputum and blood culture (3) Shock: Code(s): R57.9 - Shock, unspecified Status: Acute Assessment and Plan: again multifactorial very to cardiac arrest, possible sepsis, and patient also on multiple antihypertensive medications patient has significant volume overload otherwise. Will give 1 L saline bolus for any intravascular hypovolemia Levophed infusion check ABG electrolytes lactic acid empiric antibiotics check blood cultures sputum cultures check procalcitonin levels (4) PEA (Pulseless electrical activity): Code(s): I46.9 - Cardiac arrest, cause unspecified Status: Acute Assessment and Plan: see above (5) Edema: Qualifiers: Edema type: localized Qualified Code(s): R60.0 - Localized edema Code(s): R60.9 - Edema, unspecified Status: Acute Assessment and Plan: patient has diffuse anasarca patient has history of left leg having significant more edema than right. Dopplers were ordered on admission and are pending although patient is on anticoagulation she will likely need hemodialysis for fluid removal (6) CKD (chronic kidney disease): Qualifiers: Chronic kidney disease stage: unspecified stage Qualified Code(s): N18.9 - Chronic kidney disease, unspecified Code(s): N18.9 - Chronic kidney disease, unspecified Status: Acute Assessment and Plan: patient has history of chronic kidney disease which has been gradually worsening. He has had intermittent bouts of acute kidney injury with improvement patient is being seen by Nephrology patient has significant volume overload there has been discussion with the patient and patient's family regarding her needing hemodialysis past and patient's daughter states the patient was okay with starting hemodialysis when needed she has heparin urine output since coming to the hospital despite being on diuretics. Her creatinine is 4.4 patient will likely need hemodialysis for fluid removal (7) Volume overload: Code(s): E87.70 - Fluid overload, unspecified Status: Acute Assessment and Plan: see above (8) Congestive heart failure: Code(s): I50.9 - Heart failure, unspecified Status: Acute Assessment and Plan: most recent echo 06/20 Summary ? 1. Complete two-dimensional, color flow and Doppler transthoracic echocardiogram is performed. ? 2. Left ventricular systolic func
[2021-07-13 09:59] LABS: Creatine Kinase 101 U/L (30-135)
[2021-07-13 10:01] LABS: Alanine Aminotransferase 125 U/L (6-35); Albumin Level 3.2 g/dL (3.5-5.1); Alkaline Phosphatase 57 U/L (38-126); Anion Gap 5 mmol/L (8-16); Aspartate Amino Transferase 327 U/L (14-36); Bilirubin,Total 0.9 mg/dL (0.2-1.3); Blood Urea Nitrogen 74 mg/dL (7-17); Carbon Dioxide 31 mmol/L (22-30); Chloride 97 mmol/L (98-107); Estimated CRCL calculation 10 ml/min; Estimated Glomerular Filt Rate 10; Glucose 113 mg/dL (65-110); Magnesium 1.6 mg/dL (1.6-2.3); Potassium 4.7 mmol/L (3.4-5.0); Sodium 133 mmol/L (137-145)
[2021-07-13 10:03] LABS: Albumin Level 3.2 g/dL (3.5-5.1); Anion Gap 6 mmol/L (8-16); Blood Urea Nitrogen 74 mg/dL (7-17); Calcium 8.9 mg/dL (8.4-10.2); Carbon Dioxide 30 mmol/L (22-30); Chloride 97 mmol/L (98-107); Estimated CRCL calculation 10 ml/min; Estimated Glomerular Filt Rate 10; Glucose 113 mg/dL (65-110); Phosphorus 6.3 mg/dL (2.5-4.5); Potassium 4.6 mmol/L (3.4-5.0); Sodium 133 mmol/L (137-145)
--- NOTE | 2021-07-13 10:11 | PCOTNOTE ---
Pt. had code blue this AM, with intubation and transfer to ICU. Per nurse, pt. will be unable to participate in therapy for indeterminant amount of time, encourage to reorder when able to participate
[2021-07-13 10:17] LABS: Troponin I 0.271 ng/mL (0.000-0.034)
[2021-07-13] MEDS: SODIUM CHLORIDE 0.9% IV 1,000 ML 999 ML IV CONT (10:40)
--- NOTE | 2021-07-13 10:42 | P.PNIM_ITS ---
Progress Note: A&P Assessment and Plan (1) Cardiac arrest: Code(s): I46.9 - Cardiac arrest, cause unspecified Status: Acute Assessment and Plan: Patient had a cardiac arrest this morning which is most likely multifactorial. At that time her blood sugar was less than 20 so hypoglycemia is likely etiology. Patient was also hypoxic with diffuse pulmonary edema. Post resuscitation she was in sinus bradycardia. patient has severe chronic kidney disease and electrolyte abnormalities another possibility Recent echocardiogram reviewed patient is already on anticoagulation check EKG, serial troponins, electrolyte cardiology consulted hold beta-kennedy and other blood pressure medications at this time due to shock will obtain limited echo check CT head chest abdomen pelvis (2) Acute and chronic respiratory failure: Code(s): J96.20 - Acute and chronic respiratory failure, unspecified whether with hypoxia or hypercapnia Status: Acute Assessment and Plan: Acute Respiratory failure secondary to congestive heart failure, pulmonary edema, cardiac arrest, possible aspiration patient emergently intubated during code blue for hypoxia Continue full mechanical ventilation support to prevent hypoxemia/hypercarbia and end organ damage. PCXR reviewed and shows diffuse bilateral infiltrate which are unchanged from presentation Low tidal volume ventilation strategy to prevent volutrauma Check ABG empiric Zosyn for aspiration pneumonia check sputum and blood culture (3) Shock: Code(s): R57.9 - Shock, unspecified Status: Acute Assessment and Plan: again multifactorial very to cardiac arrest, possible sepsis, and patient also on multiple antihypertensive medications patient has significant volume overload otherwise. Will give 1 L saline bolus for any intravascular hypovolemia Levophed infusion check ABG electrolytes lactic acid empiric antibiotics check blood cultures sputum cultures check procalcitonin levels (4) PEA (Pulseless electrical activity): Code(s): I46.9 - Cardiac arrest, cause unspecified Status: Acute Assessment and Plan: see above (5) Edema: Qualifiers: Edema type: localized Qualified Code(s): R60.0 - Localized edema Code(s): R60.9 - Edema, unspecified Status: Acute Assessment and Plan: patient has diffuse anasarca patient has history of left leg having significant more edema than right. Dopplers were ordered on admission and are pending although patient is on anticoagulation she will likely need hemodialysis for fluid removal (6) CKD (chronic kidney disease): Qualifiers: Chronic kidney disease stage: unspecified stage Qualified Code(s): N18.9 - Chronic kidney disease, unspecified Code(s): N18.9 - Chronic kidney disease, unspecified Status: Acute Assessment and Plan: patient has history of chronic kidney disease which has been gradually worsening. He has had intermittent bouts of acute kidney injury with improvement patient is being seen by Nephrology patient has significant volume overload there has been discussion with the patient and patient's family regarding her needing hemodialysis past and patient's daughter states the patient was okay with starting hemodialysis when needed she has heparin urine output since coming to the hospital despite being on diuretics. Her creatinine is 4.4 patient will likely need hemodialysis for fluid removal (7) Volume overload: Code(s): E87.70 - Fluid overload, unspecif
[2021-07-13] MEDS: NOREPINEPHRINE 8 MG/D5W 250 ML 8 MG/250 ML BAG 9.38 MG IV CONT (10:45)
--- NOTE | 2021-07-13 11:15 | P.PNNP_ITS ---
Progress Note: A&P Assessment and Plan (1) GISELLE (acute kidney injury): Code(s): N17.9 - Acute kidney failure, unspecified Status: Acute Assessment and Plan: * unclear on etiology given fairly recent discharge from hospital * due to exacerbation of CHF or something else(?) * follow renal function closely in the setting of diuresis * creatine has fluctuated to extremes in the last few years * cannot deny the possibility of kidney disease progression as well (2) Chronic kidney disease, stage IV (severe): Code(s): N18.4 - Chronic kidney disease, stage 4 (severe) Status: Chronic Assessment and Plan: * baseline creatine averages around 2.0 - 2.7mg/dl * thought to be secondary to her HTN, DM, cardiac/vascular disease and need for diuretics to maintain her volume status * it was felt on last hospitalization that a higher creatinine would have to be accepted to achieve some degree of euvolemia.... * her creatinine was running around 3.1 - 3.3mg/dl at that time and on discharge * given findings to date and events this AM, will likely plan HD tomorrow more s o for fluid removal (3) Cardiac arrest: Code(s): I46.9 - Cardiac arrest, cause unspecified Status: Acute Assessment and Plan: * likely multifactorial: * hypoglycemia * hypoxia * cardiac event(?) * infection(?) * previous Echo noted * repeat limited echo given events this AM * follow telemetery and serial troponins * already on anticoagulation (4) Acute and chronic respiratory failure: Code(s): J96.20 - Acute and chronic respiratory failure, unspecified whether with hypoxia or hypercapnia Status: Acute Assessment and Plan: * several issues noted: * cardiac arrest * congestive heart failure * pulmonary edema * possible pneumonia * possible aspiration * continue ventilator support * empiric antibiotics for pneumonia (CAP versus hospital-acquired versus aspiration) * ventilator weaning when more stable (5) Shock: Code(s): R57.9 - Shock, unspecified Status: Acute Assessment and Plan: * multiple issues noted: * cardiac arrest * possible sepsis/infection * 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 intravascularly dry despite evidence of outward signs of volume overload) * vasopressor support to maintain MAP * follow culture data (blood, urine, sputum...etc) * empiric antibiotics as well (6) Acute on chronic diastolic heart failure: Code(s): I50.33 - Acute on chronic diastolic (congestive) heart failure Status: Acute Assessment and Plan: * suspected based on CXR findings, exam, and laboratory testing on admssion * complicated by her valvular heart disease as well * was on IV diuretics (although unclear how effective since admission) * follow daily weights, I/Os, and respiratory status - meehan catheter in place for accurate I/Os * Cardiology following * repeat Echo ordered (7) Anemia: Code(s): D64.9 - Anemia, unspecified Status: Chronic Assessment and Plan: * due to GISELLE, CKD, and acute illness * responded to Epogen therapy on last hospitalization * follow trend of H/H * may need to resume Epogen with HD (8) Diabetes: Qualifiers: Diabetes mellitus complication status: with other specified complication Diabetes mellitus penitentiary insulin use: with penitentiary use Diabetes mellitus type: type 2 Qualified Code(s): E11.69 - Type 2 diabetes mellitus with other sp
--- NOTE | 2021-07-13 11:15 | PM.PNNEP ---
Progress Note: A&P Assessment and Plan (1) GISELLE (acute kidney injury): Code(s): N17.9 - Acute kidney failure, unspecified Status: Acute Assessment and Plan: unclear on etiology given fairly recent discharge from hospital due to exacerbation of CHF or something else(?) follow renal function closely in the setting of diuresis creatine has fluctuated to extremes in the last few years cannot deny the possibility of kidney disease progression as well (2) Chronic kidney disease, stage IV (severe): Code(s): N18.4 - Chronic kidney disease, stage 4 (severe) Status: Chronic Assessment and Plan: baseline creatine averages around 2.0 - 2.7mg/dl thought to be secondary to her HTN, DM, cardiac/vascular disease and need for diuretics to maintain her volume status it was felt on last hospitalization that a higher creatinine would have to be accepted to achieve some degree of euvolemia.... her creatinine was running around 3.1 - 3.3mg/dl at that time and on discharge given findings to date and events this AM, will likely plan HD tomorrow more so for fluid removal (3) Cardiac arrest: Code(s): I46.9 - Cardiac arrest, cause unspecified Status: Acute Assessment and Plan: likely multifactorial: hypoglycemia hypoxia cardiac event(?) infection(?) previous Echo noted repeat limited echo given events this AM follow telemetery and serial troponins already on anticoagulation (4) Acute and chronic respiratory failure: Code(s): J96.20 - Acute and chronic respiratory failure, unspecified whether with hypoxia or hypercapnia Status: Acute Assessment and Plan: several issues noted: cardiac arrest congestive heart failure pulmonary edema possible pneumonia possible aspiration continue ventilator support empiric antibiotics for pneumonia (CAP versus hospital-acquired versus aspiration) ventilator weaning when more stable (5) Shock: Code(s): R57.9 - Shock, unspecified Status: Acute Assessment and Plan: multiple issues noted: cardiac arrest possible sepsis/infection BP medications (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 intravascularly dry despite evidence of outward signs of volume overload) vasopressor support to maintain MAP follow culture data (blood, urine, sputum...etc) empiric antibiotics as well (6) Acute on chronic diastolic heart failure: Code(s): I50.33 - Acute on chronic diastolic (congestive) heart failure Status: Acute Assessment and Plan: suspected based on CXR findings, exam, and laboratory testing on admssion complicated by her valvular heart disease as well was on IV diuretics (although unclear how effective since admission) follow daily weights, I/Os, and respiratory status - meehan catheter in place for accurate I/Os Cardiology following repeat Echo ordered (7) Anemia: Code(s): D64.9 - Anemia, unspecified Status: Chronic Assessment and Plan: due to GISELLE, CKD, and acute illness responded to Epogen therapy on last hospitalization follow trend of H/H may need to resume Epogen with HD (8) Diabetes: Qualifiers: Diabetes mellitus complication status: with other specified complication Diabetes mellitus fci insulin use: with course developer use Diabetes mellitus type: type 2 Qualified Code(s): E11.69 - Type 2 diabetes mellitus with other specified complication; Z79.4 - half-way (current) use of insulin Code(s): E11.9 - Type 2 diabetes mellitus without complications Status: Chronic Assessment and Plan: follow accuchecks particularly given issues with hypoglycemia glycemic control Discussed case with Dr. Simon Will continue to follow. Subjective Date/time seen: 07/13/21 11:15 Events noted earlier this AM -- code blue earlier this AM (PEA) with ACLS protocol initiated with ROSC with CPR and
[2021-07-13 12:04] LABS: Procalcitonin 0.2 ng/mL
[2021-07-13 12:16] LABS: Glucose Point of Care 85 mg/dl (65-105)
[2021-07-13 12:47] LABS: Creatinine Urine 54.5 mg/dL; Total Protein Urine Random 57 mg/dL; Ur Ttl Prot Creatinine Ratio 1.05 mg/mg (0-0.20)
[2021-07-13 12:48] LABS: Sodium Urine Random 65 meq/L
[2021-07-13] MEDS: CENTRAL LINE FLUSH 10 ML IV PUSH ×3 (13:27→20:19)
[2021-07-13] MEDS: DEXTROSE 50% 25 GM/50 ML SYRINGE IV PUSH (13:30)
[2021-07-13 13:35] LABS: Glucose Point of Care 71 mg/dl (65-105)
[2021-07-13 14:46] LABS: Glucose Point of Care 90 mg/dl (65-105)
[2021-07-13 16:16] LABS: Glucose Point of Care 78 mg/dl (65-105)
[2021-07-13 16:34] LABS: Troponin I 0.483 ng/mL (0.000-0.034)
[2021-07-13] MEDS: ATORVASTATIN 40 MG TABLET PO (17:34)
[2021-07-13 17:44] LABS: Glucose Point of Care 84 mg/dl (65-105)
[2021-07-13] MEDS: ASPIRIN 81 MG ENTERIC TABLET PO (20:18)
[2021-07-13] MEDS: APIXABAN 5 MG TABLET FEED TUBE (20:18)
[2021-07-13] MEDS: MINERAL OIL/WHITE PETROLATUM OINTMENT 1 APPLIC EACH EYE (20:19)
[2021-07-13 20:26] LABS: Glucose Point of Care 102 mg/dl (65-105)
[2021-07-13 22:52] LABS: Troponin I 0.531 ng/mL (0.000-0.034)
[2021-07-14] VITALS (48 sets, daily range): BP systolic 79–135; BP diastolic 43–87; PULSE 61–74; RESP 21–26; TEMP 36–38.4; O2SAT 93–100; BMI 29.3
[2021-07-14 00:02] LABS: Glucose Point of Care 183 mg/dl (65-105)
[2021-07-14 04:35] LABS: Hematocrit 24.9 % (37.0-47.0); Hemoglobin 7.8 g/dL (12.0-15.0); Mean Corpuscular HGB Conc 31.3 g/dl (32-36); Mean Corpuscular Volume 98.8 fl (80-100); Mean Platelet Volume 10.8 fl (7.4-10.4); Platelet Count Result 129 k/mm3 (150-375); Red Blood Count 2.52 M/mm3 (4.2-5.4); Red Cell Distribution Width 17.8 % (11.5-14.5); White Blood Count 8.9 K/mm3 (4.5-10.0)
[2021-07-14 04:51] LABS: Alanine Aminotransferase 62 U/L (6-35); Albumin Level 2.7 g/dL (3.5-5.1); Alkaline Phosphatase 63 U/L (38-126); Anion Gap 9 mmol/L (8-16); Aspartate Amino Transferase 117 U/L (14-36); Bilirubin,Total 0.7 mg/dL (0.2-1.3); Blood Urea Nitrogen 74 mg/dL (7-17); Carbon Dioxide 26 mmol/L (22-30); Chloride 96 mmol/L (98-107); Estimated CRCL calculation 10 ml/min; Estimated Glomerular Filt Rate 10; Glucose 259 mg/dL (65-110); Magnesium 1.6 mg/dL (1.6-2.3); Phosphorus 5.5 mg/dL (2.5-4.5); Potassium 4.5 mmol/L (3.4-5.0); Sodium 131 mmol/L (137-145)
[2021-07-14] MEDS: INSULIN ASPART (*BKC) 100 UNITS/ML SUB-Q ×3 (04:54→20:53)
[2021-07-14] MEDS: TOLNAFTATE 1% POWDER 45 GM BTL 1 APPLIC TOPICAL ×3 (05:01→20:54)
[2021-07-14] MEDS: CENTRAL LINE FLUSH 10 ML IV PUSH ×3 (05:01→20:56)
[2021-07-14 05:12] LABS: Alveolar/Arterial O2 Gradient 177.1 mmHg; Base Excess ABG 0.3 mEq/l (+/-2.0); Carboxyhemoglobin 0.3 % THb (0-2.0); Fractional Inspired Oxygen 40 %; HCO3 ABG 25.3 mEq/l (22.0-26.0); Methemoglobin ABG 0.6 %THb (0-1.5); Oxygen Content ABG 11.6 %vol (16.0-22.0); Oxygen Saturation ABG 90.5 % (95.0-100.0); Oxyhemoglobin 88.1 % THb (90.0-100.0); PCO2 ABG 42.5 mmHg (35.0-45.0); PO2 ABG 59.2 mmHg (80.0-100.0); PO2 FiO2 Ratio Arterial Blood 1.48 %; Total Hemoglobin 9.3 g/dL (12.0-18.0); pH ABG 7.393 (7.350-7.450)
[2021-07-14 05:15] LABS: Device VENTILATOR; Site Drawn RIGHT BRACHIAL
[2021-07-14 05:16] LABS: Arterial Blood Gas PEEP 5 cmH2O; Arterial Blood Gas Tidal Volume 400 ml; Arterial Blood Gas Vent Mode CMV; Arterial Blood Gas Ventilator rate 24 /MIN
[2021-07-14 05:38] LABS: Hepatitis B Surface Antigen Negative (Negative)
[2021-07-14 05:44] LABS: HAV RESULT Negative (Negative); Hepatitis B Core IgM Result Negative (Negative)
[2021-07-14 05:56] LABS: Hepatitis B Surface Anti Res Negative; Hepatitis C Virus Antibody Negative (Negative)
[2021-07-14] MEDS: ONDANSETRON INJ 4 MG/2 ML VIAL IV PUSH (08:17)
[2021-07-14 08:28] LABS: Glucose Point of Care 208 mg/dl (65-105)
[2021-07-14] MEDS: APIXABAN 5 MG TABLET FEED TUBE ×2 (08:54→20:55)
[2021-07-14] MEDS: PANTOPRAZOLE SODIUM IV 40 MG VIAL IV PUSH (08:54)
[2021-07-14] MEDS: MULTIVITAMINS THERAPEUTIC TAB (*BKC) 1 TABLET PO (08:55)
[2021-07-14] MEDS: MINERAL OIL/WHITE PETROLATUM OINTMENT 1 APPLIC EACH EYE ×2 (08:55→20:55)
[2021-07-14] MEDS: CHOLECALCIFEROL 1,000 UNITS TABLET 5000 UNITS PO (08:55)
[2021-07-14] MEDS: MIDAZOLAM 100MG/NS 100ML(*CRX) 100 MG/100 ML BAG IV CONT (11:01)
[2021-07-14] MEDS: NOREPINEPHRINE 8 MG/D5W 250 ML 8 MG/250 ML BAG 9.38 MG IV CONT (11:33)
--- NOTE | 2021-07-14 11:42 | P.PNNP_ITS ---
Progress Note: A&P Assessment and Plan (1) GISELLE (acute kidney injury): Code(s): N17.9 - Acute kidney failure, unspecified Status: Acute Assessment and Plan: * unclear on etiology given fairly recent discharge from hospital * due to exacerbation of CHF or something else(?) * follow renal function closely in the setting of diuresis * creatine has fluctuated to extremes in the last few years * cannot deny the possibility of kidney disease progression as well (2) Chronic kidney disease, stage IV (severe): Code(s): N18.4 - Chronic kidney disease, stage 4 (severe) Status: Chronic Assessment and Plan: * baseline creatine averages around 2.0 - 2.7mg/dl * thought to be secondary to her HTN, DM, cardiac/vascular disease and need for diuretics to maintain her volume status * it was felt on last hospitalization that a higher creatinine would have to be accepted to achieve some degree of euvolemia.... * her creatinine was running around 3.1 - 3.3mg/dl at that time and on discharge * given #3 and volume overload status, plan HD today and likely again tomorrow (3) Cardiac arrest: Code(s): I46.9 - Cardiac arrest, cause unspecified Status: Acute Assessment and Plan: * likely multifactorial: * hypoglycemia * hypoxia * cardiac event(?) * infection(?) * previous Echo noted * follow telemetery and serial troponins * already on anticoagulation (4) Acute and chronic respiratory failure: Code(s): J96.20 - Acute and chronic respiratory failure, unspecified whether with hypoxia or hypercapnia Status: Acute Assessment and Plan: * several issues noted: * cardiac arrest * congestive heart failure * pulmonary edema * possible pneumonia * possible aspiration * continue ventilator support * empiric antibiotics for pneumonia (CAP versus hospital-acquired versus aspir ation) * ventilator weaning when more stable (5) Shock: Code(s): R57.9 - Shock, unspecified Status: Acute Assessment and Plan: * multiple issues noted: * cardiac arrest * possible sepsis/infection * 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 intravascularly dry despite evidence of outward signs of volume overload) * vasopressor support to maintain MAP * follow culture data (blood, urine, sputum...etc) * empiric antibiotics as well (6) Acute on chronic diastolic heart failure: Code(s): I50.33 - Acute on chronic diastolic (congestive) heart failure Status: Acute Assessment and Plan: * suspected based on CXR findings, exam, and laboratory testing on admssion * complicated by her valvular heart disease as well * was on IV diuretics (although unclear how effective since admission) * follow daily weights, I/Os, and respiratory status - meehan catheter in place for accurate I/Os * Cardiology following * repeat Echo (7) Anemia: Code(s): D64.9 - Anemia, unspecified Status: Chronic Assessment and Plan: * due to GISELLE, CKD, and acute illness * responded to Epogen therapy on last hospitalization * follow trend of H/H * may need to resume Epogen with HD (8) Diabetes: Qualifiers: Diabetes mellitus complication status: with other specified complication 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
--- NOTE | 2021-07-14 11:42 | PM.PNNEP ---
Progress Note: A&P Assessment and Plan (1) GISELLE (acute kidney injury): Code(s): N17.9 - Acute kidney failure, unspecified Status: Acute Assessment and Plan: unclear on etiology given fairly recent discharge from hospital due to exacerbation of CHF or something else(?) follow renal function closely in the setting of diuresis creatine has fluctuated to extremes in the last few years cannot deny the possibility of kidney disease progression as well (2) Chronic kidney disease, stage IV (severe): Code(s): N18.4 - Chronic kidney disease, stage 4 (severe) Status: Chronic Assessment and Plan: baseline creatine averages around 2.0 - 2.7mg/dl thought to be secondary to her HTN, DM, cardiac/vascular disease and need for diuretics to maintain her volume status it was felt on last hospitalization that a higher creatinine would have to be accepted to achieve some degree of euvolemia.... her creatinine was running around 3.1 - 3.3mg/dl at that time and on discharge given #3 and volume overload status, plan HD today and likely again tomorrow (3) Cardiac arrest: Code(s): I46.9 - Cardiac arrest, cause unspecified Status: Acute Assessment and Plan: likely multifactorial: hypoglycemia hypoxia cardiac event(?) infection(?) previous Echo noted follow telemetery and serial troponins already on anticoagulation (4) Acute and chronic respiratory failure: Code(s): J96.20 - Acute and chronic respiratory failure, unspecified whether with hypoxia or hypercapnia Status: Acute Assessment and Plan: several issues noted: cardiac arrest congestive heart failure pulmonary edema possible pneumonia possible aspiration continue ventilator support empiric antibiotics for pneumonia (CAP versus hospital-acquired versus aspiration) ventilator weaning when more stable (5) Shock: Code(s): R57.9 - Shock, unspecified Status: Acute Assessment and Plan: multiple issues noted: cardiac arrest possible sepsis/infection 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 intravascularly dry despite evidence of outward signs of volume overload) vasopressor support to maintain MAP follow culture data (blood, urine, sputum...etc) empiric antibiotics as well (6) Acute on chronic diastolic heart failure: Code(s): I50.33 - Acute on chronic diastolic (congestive) heart failure Status: Acute Assessment and Plan: suspected based on CXR findings, exam, and laboratory testing on admssion complicated by her valvular heart disease as well was on IV diuretics (although unclear how effective since admission) follow daily weights, I/Os, and respiratory status - meehan catheter in place for accurate I/Os Cardiology following repeat Echo (7) Anemia: Code(s): D64.9 - Anemia, unspecified Status: Chronic Assessment and Plan: due to GISELLE, CKD, and acute illness responded to Epogen therapy on last hospitalization follow trend of H/H may need to resume Epogen with HD (8) Diabetes: Qualifiers: Diabetes mellitus complication status: with other specified complication Diabetes mellitus correction insulin use: with bed bug exterminator use Diabetes mellitus type: type 2 Qualified Code(s): E11.69 - Type 2 diabetes mellitus with other specified complication; Z79.4 - joint terminal attack controller (current) use of insulin Code(s): E11.9 - Type 2 diabetes mellitus without complications Status: Chronic Assessment and Plan: follow accuchecks particularly given issues with hypoglycemia glycemic control Will continue to follow. Subjective Date/time seen: 07/14/21 11:42 Tolerating dialysis treatment at the time of my visit (seen on HD at ); due to ongoing hypotension, levophed had to be increased at that start of dialysis treatment; discussed case with daughter at bedside. Exam N
--- NOTE | 2021-07-14 11:42 | WPDINTPN ---
Progress Note: A&P Assessment and Plan (1) Cardiac arrest: Code(s): I46.9 - Cardiac arrest, cause unspecified Status: Acute Assessment and Plan: Patient had a cardiac arrest (PEA) on 07/13/2020 which is most likely multifactorial. At that time her blood sugar was less than 20 so hypoglycemia is likely etiology. Patient was also hypoxic with diffuse pulmonary edema. 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 -07/13/2021: CT scan of the chest/abdomen/pelvis showed cardiomegaly, severe patchy consolidating infiltrates throughout both lungs likely reactive hilar or mediastinal lymphadenopathy. Small pleural effusions, anasarca, cholelithiasis, ascites, diverticulosis of left colon, no evidence of diverticulitis, stone line bilateral rib fractures 07/13/2021 echocardiogram showed moderate aortic valve stenosis with aortic valve area of 1.0 cm2, LV systolic function is normal with EF of 60-65%. Grade 2 diastolic dysfunction, moderate aortic valve regurgitation, severe tricuspid valve regurgitation, severe pulmonary hypertension with RVSP of 71 mmHg (2) Acute and chronic respiratory failure: Code(s): J96.20 - Acute and chronic respiratory failure, unspecified whether with hypoxia or hypercapnia Status: Acute Assessment and Plan: Acute Respiratory failure secondary to congestive heart failure, pulmonary edema, cardiac arrest, possible aspiration - 07/13/2021: Patient intubated during code blue for hypoxia -currently on CMV mode of ventilation, 40% FiO2 and peep of 5, continue mechanical ventilation support to prevent hypoxemia/hypercarbia and end organ damage. -Chest x-ray and ABGs reviewed -Low tidal volume ventilation strategy to prevent volutrauma - empiric Zosyn for aspiration pneumonia (07/13/2021 -07/13/2021 sputum cultures growing rare Gram-positive cocci -07/13/2021 urine cultures pending -07/13/2021 preliminary blood cultures are negative x2 (3) Shock: Code(s): R57.9 - Shock, unspecified Status: Acute Assessment and Plan: Multifactorial , likely due to cardiac arrest, possible sepsis, and patient also on multiple antihypertensive medications - patient has significant volume overload otherwise. - Levophed infusion -Lactic acid was normal 1.0 -prolactin was 0.2 - empiric antibiotics as above -Cultures as above (4) Edema: Qualifiers: Edema type: localized Qualified Code(s): R60.0 - Localized edema Code(s): R60.9 - Edema, unspecified Status: Acute Assessment and Plan: - patient has diffuse anasarca patient has history of left leg swelling/edema significant more edema than right. -07/06/2021: Venous Dopplers showed DVT involving right peroneal veins -07/08/2021: V/Q scan showed intermediate probability for pulmonary embolism -patient remains on Eliquis -07/13/2021: Right IJ dialysis catheter was inserted, dialysis started today on 07/14/2021 per Nephrology (5) CKD (chronic kidney disease): Qualifiers: Chronic kidney disease stage: unspecified stage Qualified Code(s): N18.9 - Chronic kidney disease, unspecified Code(s): N18.9 - Chronic kidney disease, unspecified Status: Acute Assessment and Plan: Patient has history of chronic kidney disease which has been gradually worsening. She has had intermittent bouts of acute kidney injury with imp
[2021-07-14 12:01] LABS: Glucose Point of Care 130 mg/dl (65-105)
[2021-07-14] MEDS: EPOETIN ALFA-EPBX 10,000 UNITS/ML VIAL 10000 UNITS IV PUSH (13:58)
[2021-07-14] MEDS: HEPARIN SODIUM 1,000 UNITS/ML VIAL 4000 UNITS (13:59)
[2021-07-14] MEDS: ALBUMIN HUMAN 25% 12.5 GM/50ML 50 ML IVPB (14:01)
--- NOTE | 2021-07-14 15:35 | PM.PNCARD ---
Progress Note: A&P Assessment and Plan (1) PEA (Pulseless electrical activity): Code(s): I46.9 - Cardiac arrest, cause unspecified <ZORAN Buck - Last Filed: 07/14/21 16:01> Status: Acute <ZORAN Buck - Last Filed: 07/14/21 16:01> Assessment and Plan: Secondary to hypoxia and or hypoglycemia. Elevated troponin secondary to hypoxia, hypotension/shock, CPR. Not secondary to acute coronary syndrome and/or plaque rupture, type 2 infarction. Patient is critically ill with multiple comorbidities. Continue supportive care as has been initiated. Will follow with you. <ZORAN Buck - Last Filed: 07/14/21 16:01> (2) Acute and chronic respiratory failure with hypoxia: Code(s): J96.21 - Acute and chronic respiratory failure with hypoxia <ZORAN Buck - Last Filed: 07/14/21 16:01> Status: Acute <ZORAN Buck - Last Filed: 07/14/21 16:01> Assessment and Plan: Status post intubation. Continue mechanical ventilatory support, wean O2 supplementation as appropriate. Defer to Critical Care for further management. Broad-spectrum antibiotics for possible aspiration pneumonia. IV diuresis as BP permits. Patient has a history of severe pulmonary hypertension <ZORAN Buck - Last Filed: 07/14/21 16:01> (3) Congestive heart failure: Qualifiers: Heart failure chronicity: acute on chronic Heart failure type: diastolic Qualified Code(s): I50.33 - Acute on chronic diastolic (congestive) heart failure <ZORAN Buck - Last Filed: 07/14/21 16:01> Code(s): I50.9 - Heart failure, unspecified <ZORAN Buck - Last Filed: 07/14/21 16:01> Status: Acute <ZORAN Buck - Last Filed: 07/14/21 16:01> Assessment and Plan: Evidence of pulmonary vascular congestion secondary to acute hypoxic respiratory failure, hypoglycemia and shock. Judicious diuresis as BP permits <ZORAN Buck - Last Filed: 07/14/21 16:01> (4) Elevated troponin: Code(s): R77.8 - Other specified abnormalities of plasma proteins <ZORAN Buck - Last Filed: 07/14/21 16:01> Status: Acute <ZORAN Buck - Last Filed: 07/14/21 16:01> Assessment and Plan: Elevated troponin secondary to hypoxia, hypotension/shock, CPR not secondary to acute coronary syndrome and/or plaque rupture, type 2 infarction. No indication for invasive angiography at this time as this was very unlikely the precipitating event for her cardiac arrest. <ZORAN Buck - Last Filed: 07/14/21 16:01> (5) Acute on chronic renal failure: Qualifiers: Acute renal failure type: unspecified Chronic kidney disease stage: stage 4 (severe) Qualified Code(s): N17.9 - Acute kidney failure, unspecified; N18.4 - Chronic kidney disease, stage 4 (severe) <ZORAN Buck - Last Filed: 07/14/21 16:01> Code(s): N17.9 - Acute kidney failure, unspecified; N18.9 - Chronic kidney disease, unspecified <ZORAN Buck - Last Filed: 07/14/21 16:01> Status: Acute <ZORAN Buck - Last Filed: 07/14/21 16:01> Assessment and Plan: Appreciate Nephrology involvement and recommendations. <ZORAN Buck - Last Filed: 07/14/21 16:01> (6) Bradycardia: Code(s): R00.1 - Bradycardia, unspecified <ZORAN Buck - Last Filed: 07/14/21 16:01> Status: Acute <ZORAN Buck - Last Filed: 07/14/21 16:01> Assessment and Plan: Hold beta-kennedy. Telemetry. <ZORAN Buck - Last Filed: 07/14/21 16:01> (7) Pulmonary hypertension: Code(s): I27.20 - Pulmonary hypertension, unspecified <ZORAN Buck - Last Filed: 07/14/21 16:01> Status: Acute <ZORAN Buck - Last Filed: 07/14/21 16:01> Assessment and Plan: Severe, chronic, RVSP 71 mm Hg, severe TR on ech
[2021-07-14 16:02] LABS: Glucose Point of Care 123 mg/dl (65-105)
[2021-07-14] MEDS: ACETAMINOPHEN 500 MG TABLET PO (16:21)
[2021-07-14] MEDS: ATORVASTATIN 40 MG TABLET PO (17:21)
--- NOTE | 2021-07-14 17:47 | P.PNIM_ITS ---
Progress Note: A&P Assessment and Plan (1) Cardiac arrest: Code(s): I46.9 - Cardiac arrest, cause unspecified Status: Acute Assessment and Plan: Patient had a cardiac arrest (PEA) on 07/13/2020 which is most likely multifactorial. At that time her blood sugar was less than 20 so hypoglycemia is likely etiology. Patient was also hypoxic with diffuse pulmonary edema. 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 -07/13/2021: CT scan of the chest/abdomen/pelvis showed cardiomegaly, severe patchy consolidating infiltrates throughout both lungs likely reactive hilar or mediastinal lymphadenopathy. Small pleural effusions, anasarca, cholelithiasis, ascites, diverticulosis of left colon, no evidence of diverticulitis, stone line bilateral rib fractures 07/13/2021 echocardiogram showed moderate aortic valve stenosis with aortic valve area of 1.0 cm2, LV systolic function is normal with EF of 60-65%. Grade 2 diastolic dysfunction, moderate aortic valve regurgitation, severe tricuspid valve regurgitation, severe pulmonary hypertension with RVSP of 71 mmHg (2) Acute and chronic respiratory failure: Code(s): J96.20 - Acute and chronic respiratory failure, unspecified whether with hypoxia or hypercapnia Status: Acute Assessment and Plan: Acute Respiratory failure secondary to congestive heart failure, pulmonary edema, cardiac arrest, possible aspiration - 07/13/2021: Patient intubated during code blue for hypoxia -currently on CMV mode of ventilation, 40% FiO2 and peep of 5, continue mechanical ventilation support to prevent hypoxemia/hypercarbia and end organ damage. -Chest x-ray and ABGs reviewed -Low tidal volume ventilation strategy to prevent volutrauma - empiric Zosyn for aspiration pneumonia (07/13/2021 -07/13/2021 sputum cultures growing rare Gram-positive cocci -07/13/2021 urine cultures pending -07/13/2021 preliminary blood cultures are negative x2 (3) Shock: Code(s): R57.9 - Shock, unspecified Status: Acute Assessment and Plan: Multifactorial , likely due to cardiac arrest, possible sepsis, and patient als o on multiple antihypertensive medications - patient has significant volume overload otherwise. - Levophed infusion -Lactic acid was normal 1.0 -prolactin was 0.2 - empiric antibiotics as above -Cultures as above (4) Edema: Qualifiers: Edema type: localized Qualified Code(s): R60.0 - Localized edema Code(s): R60.9 - Edema, unspecified Status: Acute Assessment and Plan: - patient has diffuse anasarca patient has history of left leg swelling/edema significant more edema than right. -07/06/2021: Venous Dopplers showed DVT involving right peroneal veins -07/08/2021: V/Q scan showed intermediate probability for pulmonary embolism -patient remains on Eliquis -07/13/2021: Right IJ dialysis catheter was inserted, dialysis started today on 07/14/2021 per Nephrology (5) CKD (chronic kidney disease): Qualifiers: Chronic kidney disease stage: unspecified sta
[2021-07-14 20:52] LABS: Glucose Point of Care 257 mg/dl (65-105)
[2021-07-14] MEDS: ASPIRIN 81 MG ENTERIC TABLET PO (20:56)
[2021-07-14 23:36] LABS: Glucose Point of Care 163 mg/dl (65-105)
[2021-07-15] VITALS (34 sets, daily range): BP systolic 100–155; BP diastolic 44–60; PULSE 60–77; RESP 14–25; TEMP 36.8–38.2; O2SAT 94–100
[2021-07-15 04:49] LABS: Alveolar/Arterial O2 Gradient 123.1 mmHg; Base Excess ABG -0.4 mEq/l (+/-2.0); Carboxyhemoglobin 0.3 % THb (0-2.0); Fractional Inspired Oxygen 30 %; HCO3 ABG 22.4 mEq/l (22.0-26.0); Methemoglobin ABG 0.4 %THb (0-1.5); Oxygen Saturation ABG 91.2 % (95.0-100.0); Oxyhemoglobin 88.9 % THb (90.0-100.0); PCO2 ABG 30.5 mmHg (35.0-45.0); PO2 FiO2 Ratio Arterial Blood 1.83 %; Reduced Hemoglobin 10.4 %THb (0-5.0); Total Hemoglobin 11.2 g/dL (12.0-18.0); pH ABG 7.483 (7.350-7.450)
[2021-07-15 04:50] LABS: Arterial Blood Gas PEEP 5 cmH2O; Arterial Blood Gas Tidal Volume 400 ml; Arterial Blood Gas Vent Mode CMV; Arterial Blood Gas Ventilator rate 24 /MIN; Device VENTILATOR; Modified Allen's Test Pass; Site Drawn RIGHT RADIAL
[2021-07-15] MEDS: CENTRAL LINE FLUSH 10 ML IV PUSH ×2 (05:00→14:37)
[2021-07-15] MEDS: TOLNAFTATE 1% POWDER 45 GM BTL 1 APPLIC TOPICAL ×3 (05:00→21:11)
[2021-07-15 05:05] LABS: Basophils Absolute Auto 0.1 K/mm3 (0.0-0.1); Basophils Percent Auto 0.6 % (0.2-1.2); Eosinophils Absolute Auto 0.4 K/mm3 (0-0.3); Hematocrit 23.9 % (37.0-47.0); Hemoglobin 7.5 g/dL (12.0-15.0); Immature Granulocyte Absolute 0.07 K/mm3 (0.00-0.031); Immature Granulocyte Percent A 0.8 % (0-0.5); Lymphocytes Absolute Auto 0.72 K/mm3 (0.9-3.2); Lymphocytes Percent Auto 7.8 % (18.3-44.2); Mean Corpuscular HGB Conc 31.4 g/dl (32-36); Mean Corpuscular Hemoglobin 31.4 pg (26-34); Monocytes Absolute Auto 0.7 K/mm3 (0.1-0.6); Monocytes Percent Auto 7.7 % (2.6-8.5); Neutrophils Absolute Auto 7.3 K/mm3 (1.3-6.7); Neutrophils Percent Auto 79.1 % (45.5-73.1); Platelet Count Result 103 k/mm3 (150-375); Red Blood Count 2.39 M/mm3 (4.2-5.4); Red Cell Distribution Width 17.9 % (11.5-14.5); White Blood Count 9.2 K/mm3 (4.5-10.0)
[2021-07-15 05:19] LABS: Alanine Aminotransferase 40 U/L (6-35); Alkaline Phosphatase 73 U/L (38-126); Anion Gap 14 mmol/L (8-16); Aspartate Amino Transferase 50 U/L (14-36); Bilirubin,Total 1.3 mg/dL (0.2-1.3); Blood Urea Nitrogen 53 mg/dL (7-17); Calcium 7.7 mg/dL (8.4-10.2); Carbon Dioxide 22 mmol/L (22-30); Chloride 96 mmol/L (98-107); Estimated CRCL calculation 13 ml/min; Estimated Glomerular Filt Rate 13; Glucose 327 mg/dL (65-110); Magnesium 1.6 mg/dL (1.6-2.3); Potassium 4.6 mmol/L (3.4-5.0); Sodium 132 mmol/L (137-145)
[2021-07-15] MEDS: INSULIN ASPART (*BKC) 100 UNITS/ML SUB-Q ×3 (05:51→11:43)
[2021-07-15 05:53] LABS: Glucose Point of Care 355 mg/dl (65-105)
[2021-07-15 07:17] LABS: Glucose Point of Care 329 mg/dl (65-105)
--- NOTE | 2021-07-15 08:42 | PC.NURSE ---
during morning assessment rate of Midazolam was set at 2, as per shift change report
[2021-07-15] MEDS: INSULIN GLARGINE (*BKC) 100 UNITS/ML SUB-Q (08:46)
[2021-07-15] MEDS: APIXABAN 5 MG TABLET FEED TUBE (08:51)
[2021-07-15] MEDS: MINERAL OIL/WHITE PETROLATUM OINTMENT 1 APPLIC EACH EYE (08:51)
[2021-07-15] MEDS: PANTOPRAZOLE SODIUM IV 40 MG VIAL IV PUSH (08:51)
[2021-07-15] MEDS: MULTIVITAMINS THERAPEUTIC TAB (*BKC) 1 TABLET PO (08:52)
[2021-07-15] MEDS: CHOLECALCIFEROL 1,000 UNITS TABLET 5000 UNITS PO (08:52)
--- NOTE | 2021-07-15 09:36 | PM.PNCARD ---
Progress Note: A&P Assessment and Plan (1) PEA (Pulseless electrical activity): Code(s): I46.9 - Cardiac arrest, cause unspecified Status: Acute Assessment and Plan: Secondary to hypoxia and or hypoglycemia. Elevated troponin secondary to hypoxia, hypotension/shock, CPR. Not secondary to acute coronary syndrome and/or plaque rupture, type 2 infarction. Patient is critically ill with multiple comorbidities. Continue supportive care as has been initiated. Will follow with you. (2) Acute and chronic respiratory failure with hypoxia: Code(s): J96.21 - Acute and chronic respiratory failure with hypoxia Status: Acute Assessment and Plan: Status post intubation. Continue mechanical ventilatory support, wean O2 supplementation as appropriate. Defer to Critical Care for further management. Broad-spectrum antibiotics for possible aspiration pneumonia. IV diuresis as BP permits. Patient has a history of severe pulmonary hypertension (3) Congestive heart failure: Qualifiers: Heart failure type: diastolic Heart failure chronicity: acute on chronic Qualified Code(s): I50.33 - Acute on chronic diastolic (congestive) heart failure Code(s): I50.9 - Heart failure, unspecified Status: Acute Assessment and Plan: Evidence of pulmonary vascular congestion secondary to acute hypoxic respiratory failure, hypoglycemia and shock. Judicious diuresis as BP permits . Again, volume management per hemodialysis. Patient has history of moderate aortic stenosis and regurgitation, severe tricuspid regurgitation. Outpatient Cardiology follow-up for management of valvular heart disease. (4) Elevated troponin: Code(s): R77.8 - Other specified abnormalities of plasma proteins Status: Acute Assessment and Plan: Elevated troponin secondary to hypoxia, hypotension/shock, CPR not secondary to acute coronary syndrome and/or plaque rupture, type 2 infarction. No indication for invasive angiography at this time as this was very unlikely the precipitating event for her cardiac arrest. We will see patient as needed. Please do not hesitate to contact us with any additional questions or concerns. (5) Acute on chronic renal failure: Qualifiers: Acute renal failure type: unspecified Chronic kidney disease stage: stage 5, not on chronic dialysis Qualified Code(s): N17.9 - Acute kidney failure, unspecified; N18.5 - Chronic kidney disease, stage 5 Code(s): N17.9 - Acute kidney failure, unspecified; N18.9 - Chronic kidney disease, unspecified Status: Acute Assessment and Plan: Appreciate Nephrology involvement and recommendations. Volume management with Hemodialysis managed by Nephrology. (6) Bradycardia: Code(s): R00.1 - Bradycardia, unspecified Status: Acute Assessment and Plan: Stable off beta-kennedy therapy. Continue to hold. Telemetry. (7) Pulmonary hypertension: Code(s): I27.20 - Pulmonary hypertension, unspecified Status: Acute Assessment and Plan: Severe, chronic, RVSP 71 mm Hg, severe TR on echo. previously RVSP was as high as 113 mm Hg. (8) Hypoglycemia: Code(s): E16.2 - Hypoglycemia, unspecified Status: Acute Assessment and Plan: Corrected, management diabetes mellitus per primary service. (9) Insulin dependent diabetes mellitus: Status: Chronic Assessment and Plan: Per primary service. Subjective Date/time seen: date of service: 07/15/21 09:36 Follow-up status post cardiac arrest, troponin elevation Interval history: No acute events overnight. She remains intubated and sedated. started on dialysis yesterday with plans once again today. Off pressors. Review of Systems Review of Systems: All systems reviewed & are unremarkable except as noted in HPI and below ROS unobtainable: Yes unobtainable due to endotracheal tube and unobtainable due to medical
[2021-07-15 09:39] LABS: Immature Reticulocyte Fraction 24.9 % (3.0-15.9); Reticulocyte Hemoglobin Conten 32.4 pg (28.2-35.7); Reticulocyte Percent 3.31 % (0.7-4.3); Reticulocytes Absolute 0.08 B/L (32.2-175.7)
[2021-07-15 09:49] LABS: Lactate Dehydrogenase 608 U/L (313-618)
--- NOTE | 2021-07-15 09:56 | WPDINTPN ---
Progress Note: A&P Assessment and Plan (1) Cardiac arrest: Code(s): I46.9 - Cardiac arrest, cause unspecified Status: Acute Assessment and Plan: Patient had a cardiac arrest (PEA) on 07/13/2020 which is most likely multifactorial. At that time her blood sugar was less than 20 so hypoglycemia is likely etiology. Patient was also hypoxic with diffuse pulmonary edema. 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 -07/13/2021: CT scan of the chest/abdomen/pelvis showed cardiomegaly, severe patchy consolidating infiltrates throughout both lungs likely reactive hilar or mediastinal lymphadenopathy. Small pleural effusions, anasarca, cholelithiasis, ascites, diverticulosis of left colon, no evidence of diverticulitis, stone line bilateral rib fractures 07/13/2021 echocardiogram showed moderate aortic valve stenosis with aortic valve area of 1.0 cm2, LV systolic function is normal with EF of 60-65%. Grade 2 diastolic dysfunction, moderate aortic valve regurgitation, severe tricuspid valve regurgitation, severe pulmonary hypertension with RVSP of 71 mmHg (2) Acute and chronic respiratory failure: Code(s): J96.20 - Acute and chronic respiratory failure, unspecified whether with hypoxia or hypercapnia Status: Acute Assessment and Plan: Acute Respiratory failure secondary to congestive heart failure, pulmonary edema, cardiac arrest, possible aspiration - 07/13/2021: Patient intubated during code blue for hypoxia -currently on CMV mode of ventilation, 40% FiO2 and peep of 5, continue mechanical ventilation support to prevent hypoxemia/hypercarbia and end organ damage. -Chest x-ray and ABGs reviewed -Low tidal volume ventilation strategy to prevent volutrauma - empiric Zosyn for aspiration pneumonia (07/13/2021), will add vancomycin (07/15) -07/13/2021 sputum cultures growing rare Gram-positive cocci -07/13/2021 urine cultures pending -07/13/2021 preliminary blood cultures are negative x2 -sedated with Versed infusion, asked the bedside RN to decrease to maintain a RASS of 0--2 -dialysis again today with fluid removal which will help with liberation from the ventilator (3) Shock: Code(s): R57.9 - Shock, unspecified Status: Acute Assessment and Plan: Multifactorial , likely due to cardiac arrest, possible sepsis, and patient also on multiple antihypertensive medications - patient has significant volume overload otherwise. - OFF Levophed infusion, she did require Levophed during dialysis -Lactic acid was normal 1.0 -prolactin was 0.2 - empiric antibiotics as above -Cultures as above (4) Edema: Qualifiers: Edema type: localized Qualified Code(s): R60.0 - Localized edema Code(s): R60.9 - Edema, unspecified Status: Acute Assessment and Plan: - patient has diffuse anasarca patient has history of left leg swelling/edema significant more edema than right. -07/06/2021: Venous Dopplers showed DVT involving right peroneal veins -07/08/2021: V/Q scan showed intermediate probability for pulmonary embolism -patient remains on Eliquis -07/13/2021: Right IJ dialysis catheter was inserted, dialysis started on 07/14/2021 per Nephrology (5) CKD (chronic kidney disease): Qualifiers: Chronic kidney disease stage: unspecified stage Qualified Code(s): N18.9 - Chronic kidney disease, unspecified
--- NOTE | 2021-07-15 11:12 | PCFNICU ---
ICU Rounding Note: Pt current nutrition is Nepro at 40 ml/hr. Last recorded weight is 65.8 kg, down from 72.8 kg on admit. Bowel Motility:+Bm reported 07/13 Labs Reviewed:Glu 327, BUN 53, Cr 3.6,Alb 3.0,Na 132,Hgb 7.5,Hct 23.9 Meds Noted:Versed, Eliquis,Levophed, MVI,Zofran, Zosyn, NovoLog, Lantus Skin:Maceration to groin. Edema noted. Additional Notes: Patient remains on mechanical vent CMV mode and tube feedings of Nepro at 40 ml/hr over 22 hours. 30 ml free water flush q 4 hours. Patient is tolerating tube feedings. Dialysis yesterday 2 Liters removed. Plans for Dialysis today. Agree with diet orders. Following daily in ICU rounds. Will reassess every Tuesday and Tuesday.
[2021-07-15 11:40] LABS: Glucose Point of Care 227 mg/dl (65-105)
--- NOTE | 2021-07-15 12:55 | P.PNNP_ITS ---
Progress Note: A&P Assessment and Plan (1) GISELLE (acute kidney injury): Code(s): N17.9 - Acute kidney failure, unspecified Status: Acute Assessment and Plan: * unclear on etiology given fairly recent discharge from hospital * due to exacerbation of CHF or something else(?) * follow renal function closely but suspect she may now be dialysis dependent given severity of baseline CKD.... * creatine has fluctuated to extremes in the last few years * cannot deny the possibility of kidney disease progression as well (2) Chronic kidney disease, stage IV (severe): Code(s): N18.4 - Chronic kidney disease, stage 4 (severe) Status: Chronic Assessment and Plan: * baseline creatine averages around 2.0 - 2.7mg/dl * thought to be secondary to her HTN, DM, cardiac/vascular disease and need for diuretics to maintain her volume status * it was felt on last hospitalization that a higher creatinine would have to be accepted to achieve some degree of euvolemia.... * her creatinine was running around 3.1 - 3.3mg/dl at that time and on discharge * as noted above, given events during this hospitalization, she may be dialysis dependent/ESRD at this time -- time will tell (3) Cardiac arrest: Code(s): I46.9 - Cardiac arrest, cause unspecified Status: Acute Assessment and Plan: * likely multifactorial: * hypoglycemia * hypoxia * cardiac event(?) * infection(?) * recent Echo noted * already on anticoagulation (4) Acute and chronic respiratory failure: Code(s): J96.20 - Acute and chronic respiratory failure, unspecified whether with hypoxia or hypercapnia Status: Acute Assessment and Plan: * several issues noted: * cardiac arrest * congestive heart failure * pulmonary edema * possible pneumonia * possible aspiration * continue ventilator support * empiric antibiotics for pneumonia (CAP versus hospital-acquired versus aspiration) * ventilator weaning when more stable (5) Shock: Code(s): R57.9 - Shock, unspecified Status: Acute Assessment and Plan: * improving * multiple issues noted: * cardiac arrest * possible sepsis/infection * BP medications (taking [employer]) * possible prerenal factors (i.e. intravascularly dry despite evidence of outward signs of volume overload) * off vasopressor support * follow culture data (blood, urine, sputum...etc) * empiric antibiotics as well (6) Acute on chronic diastolic heart failure: Code(s): I50.33 - Acute on chronic diastolic (congestive) heart failure Status: Acute Assessment and Plan: * suspected based on CXR findings, exam, and laboratory testing on admssion * complicated by her valvular heart disease as well * was on IV diuretics (although unclear how effective since admission) * follow daily weights, I/Os, and respiratory status - meehan catheter in place for accurate I/Os (7) Anemia: Code(s): D64.9 - Anemia, unspecified Status: Chronic Assessment and Plan: * due to GISELLE, CKD, and acute illness * responded to Epogen therapy on last hospitalization * resumed with dialysis * follow trend of H/H (8) Diabetes: Qualifiers: Diabetes mellitus complication status: with other specified complication Diabetes mellitus chcf insulin use: with chcf use Diabetes mellitus type: type 2 Qualified Code(s): E11.69 - Type 2 diabetes mellitus with other specified complication; Z79.4 - shelter (current) use of insulin
--- NOTE | 2021-07-15 12:55 | PM.PNNEP ---
Progress Note: A&P Assessment and Plan (1) GISELLE (acute kidney injury): Code(s): N17.9 - Acute kidney failure, unspecified Status: Acute Assessment and Plan: unclear on etiology given fairly recent discharge from hospital due to exacerbation of CHF or something else(?) follow renal function closely but suspect she may now be dialysis dependent given severity of baseline CKD.... creatine has fluctuated to extremes in the last few years cannot deny the possibility of kidney disease progression as well (2) Chronic kidney disease, stage IV (severe): Code(s): N18.4 - Chronic kidney disease, stage 4 (severe) Status: Chronic Assessment and Plan: baseline creatine averages around 2.0 - 2.7mg/dl thought to be secondary to her HTN, DM, cardiac/vascular disease and need for diuretics to maintain her volume status it was felt on last hospitalization that a higher creatinine would have to be accepted to achieve some degree of euvolemia.... her creatinine was running around 3.1 - 3.3mg/dl at that time and on discharge as noted above, given events during this hospitalization, she may be dialysis dependent/ESRD at this time -- time will tell (3) Cardiac arrest: Code(s): I46.9 - Cardiac arrest, cause unspecified Status: Acute Assessment and Plan: likely multifactorial: hypoglycemia hypoxia cardiac event(?) infection(?) recent Echo noted already on anticoagulation (4) Acute and chronic respiratory failure: Code(s): J96.20 - Acute and chronic respiratory failure, unspecified whether with hypoxia or hypercapnia Status: Acute Assessment and Plan: several issues noted: cardiac arrest congestive heart failure pulmonary edema possible pneumonia possible aspiration continue ventilator support empiric antibiotics for pneumonia (CAP versus hospital-acquired versus aspiration) ventilator weaning when more stable (5) Shock: Code(s): R57.9 - Shock, unspecified Status: Acute Assessment and Plan: improving multiple issues noted: cardiac arrest possible sepsis/infection BP medications (taking [employer]) possible prerenal factors (i.e. intravascularly dry despite evidence of outward signs of volume overload) off vasopressor support follow culture data (blood, urine, sputum...etc) empiric antibiotics as well (6) Acute on chronic diastolic heart failure: Code(s): I50.33 - Acute on chronic diastolic (congestive) heart failure Status: Acute Assessment and Plan: suspected based on CXR findings, exam, and laboratory testing on admssion complicated by her valvular heart disease as well was on IV diuretics (although unclear how effective since admission) follow daily weights, I/Os, and respiratory status - meehan catheter in place for accurate I/Os (7) Anemia: Code(s): D64.9 - Anemia, unspecified Status: Chronic Assessment and Plan: due to GISELLE, CKD, and acute illness responded to Epogen therapy on last hospitalization resumed with dialysis follow trend of H/H (8) Diabetes: Qualifiers: Diabetes mellitus complication status: with other specified complication Diabetes mellitus care home insulin use: with care home use Diabetes mellitus type: type 2 Qualified Code(s): E11.69 - Type 2 diabetes mellitus with other specified complication; Z79.4 - assisted (current) use of insulin Code(s): E11.9 - Type 2 diabetes mellitus without complications Status: Chronic Assessment and Plan: follow accuchecks particularly given issues with hypoglycemia glycemic control Will continue to follow. Subjective Date/time seen: 07/15/21 12:55 Patient remains intubated and sedated; tolerated HD treatment yesterday with aout 2L fluid removal; low urine output noted and noted fever overnight as well; stable hemodynamics noted off levophed gtt at this t
--- NOTE | 2021-07-15 13:32 | PM.IMPN ---
Progress Note: A&P Assessment and Plan (1) Cardiac arrest: Code(s): I46.9 - Cardiac arrest, cause unspecified Status: Acute Assessment and Plan: Likely secondary to hypoglycemic episode. Now resolved. Supportive care in the ICU. (2) Acute and chronic respiratory failure: Code(s): J96.20 - Acute and chronic respiratory failure, unspecified whether with hypoxia or hypercapnia Status: Acute Assessment and Plan: Pneumonia versus diastolic CHF. Continue supportive care. Patient is currently on vanc and Zosyn. (3) Shock: Code(s): R57.9 - Shock, unspecified Status: Acute Assessment and Plan: Continue supportive care in the ICU. (4) Edema: Qualifiers: Edema type: localized Qualified Code(s): R60.0 - Localized edema Code(s): R60.9 - Edema, unspecified Status: Acute Assessment and Plan: DVT noted. intermediate probability PE on V/Q scan. Continue anticoagulation. (5) CKD (chronic kidney disease): Qualifiers: Chronic kidney disease stage: unspecified stage Qualified Code(s): N18.9 - Chronic kidney disease, unspecified Code(s): N18.9 - Chronic kidney disease, unspecified Status: Acute Assessment and Plan: Monitor electrolytes and function. Hemodialysis per Nephrology. (6) Volume overload: Code(s): E87.70 - Fluid overload, unspecified Status: Acute Assessment and Plan: See plan above (7) Congestive heart failure: Qualifiers: Heart failure type: diastolic Heart failure chronicity: acute on chronic Qualified Code(s): I50.33 - Acute on chronic diastolic (congestive) heart failure Code(s): I50.9 - Heart failure, unspecified Status: Acute Assessment and Plan: diastolic dysfunction with elevated RVSP. (8) Type 2 diabetes mellitus with hyperglycemia: Code(s): E11.65 - Type 2 diabetes mellitus with hyperglycemia Status: Acute Assessment and Plan: Monitor blood sugar. (9) Hypoglycemia: Code(s): E16.2 - Hypoglycemia, unspecified Status: Acute Assessment and Plan: Monitor blood sugar (10) Nausea and vomiting: Code(s): R11.2 - Nausea with vomiting, unspecified Status: Acute Assessment and Plan: monitor Subjective Date/time seen: 07/15/21 13:32 appears to be improving clinically. Still intubated. Objective Data Vital Signs Vital Signs: Vital Signs - 24 hr 07/14/21 14:00 07/14/21 13:45 07/14/21 14:28 Temperature Pulse Rate 65 66 67 Respiratory Rate Blood Pressure 118/48 L 117/87 124/54 L Pulse Oximetry Oxygen Delivery Fraction of Inspired Oxygen 07/14/21 14:39 07/14/21 14:51 07/14/21 14:00 Temperature Pulse Rate 69 65 66 Respiratory Rate 25 H Blood Pressure 133/55 L Pulse Oximetry Oxygen Delivery Fraction of Inspired Oxygen 07/14/21 14:00 07/14/21 15:06 07/14/21 15:23 Temperature 98.9 F Pulse Rate 66 66 67 Respiratory Rate 24 H Blood Pressure 118/48 L 130/69 135/54 L Pulse Oximetry 100 Oxygen Delivery Fraction of Inspired Oxygen 07/14/21 15:23 07/14/21 16:26 07/14/21 16:26 Temperature Pulse Rate 68 69 68 Respiratory Rate 25 H 25 H Blood Pressure 133/86 Pulse Oximetry Oxygen Delivery Fraction of Inspired Oxygen 07/14/21 14:02 07/14/21 16:40 07/14/21 16:00 Temperature 99.7 F H Pulse Rate 67 69 73 Respiratory Rate 26 H Blood Pressure 133/65 Pulse Oximetry 100 100 100 Oxygen Delivery Mechanical Ventilation Mechanical Ventilation Fraction of Inspired Oxygen 45 45 07/14/21 16:00 07/14/21 16:00 07/14/21 16:00 Temperature Pulse Rate 69 Respiratory Rate Blood Pressure Pulse Oximetry 100 Oxygen Delivery Mechanical Ventilation Fraction of Inspired Oxygen 45 45 07/14/21 14:15 07/14/21 14:37 07/14/21 18:00 Temperature 98.8 F Pulse Rate 6
[2021-07-15] MEDS: ACETAMINOPHEN 500 MG TABLET PO (14:40)
--- NOTE | 2021-07-15 15:33 | PC.NURSE ---
Called [facility] dialysis at 08:30am, 14:19pm and 15:20pm, Nayeli from [facility] called back at 15:36 and said they running behind and they will be here to do patient dialysis this evening.
[2021-07-15 15:44] LABS: Glucose Point of Care 180 mg/dl (65-105)
[2021-07-15] MEDS: ATORVASTATIN 40 MG TABLET PO (18:00)
[2021-07-15 21:09] LABS: Glucose Point of Care 150 mg/dl (65-105)
[2021-07-15] MEDS: EPOETIN ALFA-EPBX 10,000 UNITS/ML VIAL 10000 UNITS IV PUSH (22:48)
[2021-07-15] MEDS: HEPARIN SODIUM 1,000 UNITS/ML VIAL 4000 UNITS (22:49)
[2021-07-16] VITALS (42 sets, daily range): BP systolic 101–165; BP diastolic 45–68; PULSE 63–82; RESP 19–27; TEMP 36.5–37.8; O2SAT 92–100
[2021-07-16] MEDS: CENTRAL LINE FLUSH 10 ML IV PUSH ×4 (00:20→20:51)
[2021-07-16] MEDS: PANTOPRAZOLE SODIUM IV 40 MG VIAL IV PUSH ×3 (00:21→20:51)
[2021-07-16 00:25] LABS: Glucose Point of Care 185 mg/dl (65-105)
[2021-07-16] MEDS: INSULIN ASPART (*BKC) 100 UNITS/ML SUB-Q ×5 (03:29→23:56)
[2021-07-16 03:36] LABS: Glucose Point of Care 241 mg/dl (65-105)
[2021-07-16 04:43] LABS: Basophils Absolute Auto 0.1 K/mm3 (0.0-0.1); Basophils Percent Auto 0.5 % (0.2-1.2); Eosinophils Absolute Auto 0.5 K/mm3 (0-0.3); Eosinophils Percent Auto 4.2 % (0-4.4); Hematocrit 23.2 % (37.0-47.0); Hemoglobin 7.3 g/dL (12.0-15.0); Immature Granulocyte Absolute 0.05 K/mm3 (0.00-0.031); Immature Granulocyte Percent A 0.4 % (0-0.5); Lymphocytes Absolute Auto 0.53 K/mm3 (0.9-3.2); Lymphocytes Percent Auto 4.6 % (18.3-44.2); Mean Corpuscular HGB Conc 31.5 g/dl (32-36); Mean Corpuscular Hemoglobin 31.1 pg (26-34); Mean Corpuscular Volume 98.7 fl (80-100); Mean Platelet Volume 12.2 fl (7.4-10.4); Monocytes Absolute Auto 0.7 K/mm3 (0.1-0.6); Monocytes Percent Auto 5.9 % (2.6-8.5); Neutrophils Absolute Auto 9.8 K/mm3 (1.3-6.7); Neutrophils Percent Auto 84.4 % (45.5-73.1); Platelet Count Result 105 k/mm3 (150-375); Red Blood Count 2.35 M/mm3 (4.2-5.4); Red Cell Distribution Width 18.4 % (11.5-14.5); White Blood Count 11.6 K/mm3 (4.5-10.0)
[2021-07-16] MEDS: TOLNAFTATE 1% POWDER 45 GM BTL 1 APPLIC TOPICAL ×3 (05:13→20:52)
[2021-07-16 05:21] LABS: Alanine Aminotransferase 31 U/L (6-35); Albumin Level 2.6 g/dL (3.5-5.1); Alkaline Phosphatase 70 U/L (38-126); Anion Gap 5 mmol/L (8-16); Aspartate Amino Transferase 30 U/L (14-36); Blood Urea Nitrogen 40 mg/dL (7-17); Calcium 7.9 mg/dL (8.4-10.2); Carbon Dioxide 30 mmol/L (22-30); Chloride 98 mmol/L (98-107); Estimated CRCL calculation 16 ml/min; Estimated Glomerular Filt Rate 17; Glucose 233 mg/dL (65-110); Magnesium 1.7 mg/dL (1.6-2.3); Phosphorus 2.5 mg/dL (2.5-4.5); Potassium 3.5 mmol/L (3.4-5.0); Sodium 133 mmol/L (137-145)
[2021-07-16 05:23] LABS: Alveolar/Arterial O2 Gradient 99.3 mmHg; Base Excess ABG -0.1 mEq/l (+/-2.0); Carboxyhemoglobin 0.1 % THb (0-2.0); Fractional Inspired Oxygen 30 %; Methemoglobin ABG 0.4 %THb (0-1.5); Oxygen Content ABG 11.9 %vol (16.0-22.0); Oxygen Saturation ABG 96.4 % (95.0-100.0); Oxyhemoglobin 94.6 % THb (90.0-100.0); PCO2 ABG 31.7 mmHg (35.0-45.0); PO2 ABG 77.4 mmHg (80.0-100.0); PO2 FiO2 Ratio Arterial Blood 2.58 %; Reduced Hemoglobin 4.9 %THb (0-5.0); Total Hemoglobin 8.9 g/dL (12.0-18.0); pH ABG 7.479 (7.350-7.450)
[2021-07-16 05:26] LABS: Arterial Blood Gas PEEP 5 cmH2O; Arterial Blood Gas Tidal Volume 400 ml; Arterial Blood Gas Vent Mode CMV; Arterial Blood Gas Ventilator rate 24 /MIN; Device VENTILATOR; Site Drawn RIGHT BRACHIAL
[2021-07-16 07:59] LABS: Glucose Point of Care 266 mg/dl (65-105)
[2021-07-16] MEDS: INSULIN GLARGINE (*BKC) 100 UNITS/ML SUB-Q (08:05)
[2021-07-16] MEDS: CHOLECALCIFEROL 1,000 UNITS TABLET 5000 UNITS PO (08:10)
[2021-07-16] MEDS: MINERAL OIL/WHITE PETROLATUM OINTMENT 1 APPLIC EACH EYE (08:10)
[2021-07-16] MEDS: MULTIVITAMINS THERAPEUTIC TAB (*BKC) 1 TABLET PO (08:11)
[2021-07-16] MEDS: ALBUTEROL SULFATE NEB 2.5 MG/0.5 ML INH INHALATION ×2 (08:52→20:13)
[2021-07-16] MEDS: DORNASE ALFA INH SOLN 1 MG/ML 2.5 ML AMP 2.5 MG INHALATION ×2 (08:52→20:12)
--- NOTE | 2021-07-16 11:11 | WPDINTPN ---
Progress Note: A&P Assessment and Plan (1) Cardiac arrest: Code(s): I46.9 - Cardiac arrest, cause unspecified Status: Acute Assessment and Plan: Patient had a cardiac arrest (PEA) on 07/13/2020 which is most likely multifactorial. At that time her blood sugar was less than 20 so hypoglycemia is likely etiology. Patient was also hypoxic with diffuse pulmonary edema. 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 -07/13/2021: CT scan of the chest/abdomen/pelvis showed cardiomegaly, severe patchy consolidating infiltrates throughout both lungs likely reactive hilar or mediastinal lymphadenopathy. Small pleural effusions, anasarca, cholelithiasis, ascites, diverticulosis of left colon, no evidence of diverticulitis, stone line bilateral rib fractures 07/13/2021 echocardiogram showed moderate aortic valve stenosis with aortic valve area of 1.0 cm2, LV systolic function is normal with EF of 60-65%. Grade 2 diastolic dysfunction, moderate aortic valve regurgitation, severe tricuspid valve regurgitation, severe pulmonary hypertension with RVSP of 71 mmHg (2) Acute and chronic respiratory failure: Code(s): J96.20 - Acute and chronic respiratory failure, unspecified whether with hypoxia or hypercapnia Status: Acute Assessment and Plan: Acute Respiratory failure secondary to congestive heart failure, pulmonary edema, cardiac arrest, possible aspiration - 07/13/2021: Patient intubated during code blue for hypoxia -currently on CMV mode of ventilation, 40% FiO2 and peep of 5, continue mechanical ventilation support to prevent hypoxemia/hypercarbia and end organ damage. -Chest x-ray and ABGs reviewed -Low tidal volume ventilation strategy to prevent volutrauma - empiric Zosyn for aspiration pneumonia (07/13/2021), will add vancomycin (07/15) -07/13/2021 sputum cultures growing rare Gram-positive cocci -07/13/2021 urine cultures-negative -07/13/2021 preliminary blood cultures are negative x2 -Continue bronchodilators -will add Pulmozyme due to thick secretion -sedated with Versed infusion, have asked the bedside RN to hold Versed, will place patient on SBT and evaluate for extubation -patient being dialyzed with good fluid removal which will assist in liberating her from the ventilator (3) Shock: Code(s): R57.9 - Shock, unspecified Status: Acute Assessment and Plan: Multifactorial , likely due to cardiac arrest, possible sepsis, and patient also on multiple antihypertensive medications - patient has significant volume overload - OFF Levophed infusion, -Lactic acid was normal 1.0 -prolactin was 0.2 - empiric antibiotics as above -Cultures as above (4) Edema: Qualifiers: Edema type: localized Qualified Code(s): R60.0 - Localized edema Code(s): R60.9 - Edema, unspecified Status: Acute Assessment and Plan: - patient has diffuse anasarca patient has history of left leg swelling/edema significant more edema than right. -07/06/2021: Venous Dopplers showed DVT involving right peroneal veins -07/08/2021: V/Q scan showed intermediate probability for pulmonary embolism -patient remains on Eliquis -07/13/2021: Right IJ dialysis catheter was inserted, dialysis started on 07/14/2021 per Nephrology (5) CKD (chronic kidney disease): Qualifiers: Chronic kidney
--- NOTE | 2021-07-16 11:17 | PCFNICU ---
ICU Rounding Note: Pt current nutrition is Nepro at 40 ml/hr. Last recorded weight is 68.8 kg, down from 72.8 kg on admit. Bowel Motility:+Bm reported 07/13 Labs Reviewed:Glu 233, GFR 17, BUN 40, Cr 2.7,Alb 2.6,Hgb 7.3,Hct 23.2 Meds Noted:Levophed, MVI,Zofran, Zosyn, NovoLog, Lantus, Vit D, Protonix Skin: Maceration to groin, Edema noted. Additional Notes: Patient remains on mechanical vent CMV mode and tube feedings of Nepro at 40 ml/hr, tolerating per nursing. Patient to have breathing trial today, TF to be on hold for trial. Dialysis planned again for today. Agree with diet orders. Following daily in ICU rounds. Will reassess every Tuesday and Tuesday.
[2021-07-16 11:51] LABS: Glucose Point of Care 208 mg/dl (65-105)
--- NOTE | 2021-07-16 12:01 | PM.IMPN ---
Progress Note: A&P Assessment and Plan (1) Cardiac arrest: Code(s): I46.9 - Cardiac arrest, cause unspecified Status: Acute (2) Acute and chronic respiratory failure: Code(s): J96.20 - Acute and chronic respiratory failure, unspecified whether with hypoxia or hypercapnia Status: Acute (3) Shock: Code(s): R57.9 - Shock, unspecified Status: Acute (4) Edema: Qualifiers: Edema type: localized Qualified Code(s): R60.0 - Localized edema Code(s): R60.9 - Edema, unspecified Status: Acute (5) CKD (chronic kidney disease): Qualifiers: Chronic kidney disease stage: unspecified stage Qualified Code(s): N18.9 - Chronic kidney disease, unspecified Code(s): N18.9 - Chronic kidney disease, unspecified Status: Acute (6) Volume overload: Code(s): E87.70 - Fluid overload, unspecified Status: Acute (7) Congestive heart failure: Qualifiers: Heart failure type: diastolic Heart failure chronicity: acute on chronic Qualified Code(s): I50.33 - Acute on chronic diastolic (congestive) heart failure Code(s): I50.9 - Heart failure, unspecified Status: Acute (8) Type 2 diabetes mellitus with hyperglycemia: Code(s): E11.65 - Type 2 diabetes mellitus with hyperglycemia Status: Acute (9) Hypoglycemia: Code(s): E16.2 - Hypoglycemia, unspecified Status: Acute (10) Nausea and vomiting: Code(s): R11.2 - Nausea with vomiting, unspecified Status: Acute (11) Anemia: Code(s): D64.9 - Anemia, unspecified Status: Chronic Subjective Date/time seen: 07/16/21 12:01 no additional issues overnight Objective Data Vital Signs Vital Signs: Vital Signs - 24 hr 07/15/21 13:33 07/15/21 14:00 07/15/21 14:00 Temperature 99.0 F Pulse Rate 60 64 63 Respiratory Rate 24 H Blood Pressure 128/53 L Pulse Oximetry 100 100 Oxygen Delivery Mechanical Ventilation Fraction of Inspired Oxygen 35 07/15/21 16:00 07/15/21 16:00 07/15/21 16:00 Temperature 99.3 F Pulse Rate 65 65 62 Respiratory Rate 14 24 H Blood Pressure 119/52 L Pulse Oximetry 100 100 Oxygen Delivery Mechanical Ventilation Fraction of Inspired Oxygen 07/15/21 16:00 07/15/21 17:20 07/15/21 18:00 Temperature 99.3 F Pulse Rate 64 72 Respiratory Rate 25 H Blood Pressure 138/55 L Pulse Oximetry 99 100 Oxygen Delivery Mechanical Ventilation Fraction of Inspired Oxygen 35 30 07/15/21 18:00 07/15/21 19:47 07/15/21 20:00 Temperature Pulse Rate 68 70 73 Respiratory Rate Blood Pressure 154/52 H 142/60 H Pulse Oximetry Oxygen Delivery Fraction of Inspired Oxygen 07/15/21 19:00 07/15/21 19:00 07/15/21 21:00 Temperature 99.1 F Pulse Rate 71 74 Respiratory Rate 24 H Blood Pressure 140/55 L 155/55 H Pulse Oximetry 98 Oxygen Delivery Fraction of Inspired Oxygen 30 07/15/21 21:30 07/15/21 20:36 07/15/21 20:15 Temperature Pulse Rate 72 70 71 Respiratory Rate Blood Pressure 149/53 H 149/52 H Pulse Oximetry 100 Oxygen Delivery Mechanical Ventilation Fraction of Inspired Oxygen 30 07/15/21 20:30 07/15/21 20:45 07/15/21 21:15 Temperature Pulse Rate 73 74 72 Respiratory Rate Blood Pressure 139/52 L 154/60 H 154/56 H Pulse Oximetry Oxygen Delivery Fraction of Inspired Oxygen 07/15/21 21:45 07/15/21 22:00 07/15/21 22:15 Temperature Pulse Rate 72 72 72 Respiratory Rate Blood Pressure 154/51 H 141/55 H 145/51 H Pulse Oximetry Oxygen Delivery Fraction of Inspired Oxygen 07/15/21 20:00 07/15/21 20:00 07/15/21 20:00 Temperature Pulse Rate 70 70 Respiratory Rate 24 H Blood Pressure Pulse Oximetry 99 Oxygen Delivery Mechanical Ventilation Fraction of Inspired Oxygen 30 30 07/15/21 20:00 07/15/21 22:00 07/15/21 22:00 Temperature 99 F 98.8 F Pulse Rate 70 71
--- NOTE | 2021-07-16 12:12 | PM.IMPN ---
Progress Note: A&P Assessment and Plan (1) Cardiac arrest: Code(s): I46.9 - Cardiac arrest, cause unspecified Status: Acute Assessment and Plan: Likely secondary to hypoglycemic episode. Now resolved. Supportive care in the ICU. (2) Acute and chronic respiratory failure: Code(s): J96.20 - Acute and chronic respiratory failure, unspecified whether with hypoxia or hypercapnia Status: Acute Assessment and Plan: Pneumonia versus diastolic CHF. Continue supportive care. Patient is currently on vanc and Zosyn. (3) Shock: Code(s): R57.9 - Shock, unspecified Status: Acute Assessment and Plan: Continue supportive care in the ICU. (4) Edema: Qualifiers: Edema type: localized Qualified Code(s): R60.0 - Localized edema Code(s): R60.9 - Edema, unspecified Status: Acute Assessment and Plan: DVT noted. intermediate probability PE on V/Q scan. Anticoagulation on hold (5) CKD (chronic kidney disease): Qualifiers: Chronic kidney disease stage: unspecified stage Qualified Code(s): N18.9 - Chronic kidney disease, unspecified Code(s): N18.9 - Chronic kidney disease, unspecified Status: Acute Assessment and Plan: Monitor electrolytes and function. Hemodialysis per Nephrology. (6) Volume overload: Code(s): E87.70 - Fluid overload, unspecified Status: Acute Assessment and Plan: See plan above (7) Congestive heart failure: Qualifiers: Heart failure type: diastolic Heart failure chronicity: acute on chronic Qualified Code(s): I50.33 - Acute on chronic diastolic (congestive) heart failure Code(s): I50.9 - Heart failure, unspecified Status: Acute Assessment and Plan: diastolic dysfunction with elevated RVSP. (8) Type 2 diabetes mellitus with hyperglycemia: Code(s): E11.65 - Type 2 diabetes mellitus with hyperglycemia Status: Acute Assessment and Plan: Monitor blood sugar. (9) Hypoglycemia: Code(s): E16.2 - Hypoglycemia, unspecified Status: Acute Assessment and Plan: Monitor blood sugar (10) Nausea and vomiting: Code(s): R11.2 - Nausea with vomiting, unspecified Status: Acute Assessment and Plan: monitor Subjective Date/time seen: 07/16/21 12:12 Intubated Exam Narrative: General: Pt is intubated, sedated and on mechanical ventilation Lungs/Chest: Trachea central Coarse BS B/L, bilateral diffuse rales, no wheezes, decreased air entry at bases Cardiac: RRR. Normal S1 S2. No murmurs Abdomen: Decreased bowel sounds.Soft. NT. ND. Extremities: bilateral pitting edema in all 4 extremities, left lower extremity significantly more than right (this is chronic as per the daughter) : Humphries in place now Neurologic: Patient is intubated sedated with Versed, does not open her eyes, nods to questions, follows simple commands in all extremities Objective Data Vital Signs Vital Signs: Vital Signs - 24 hr 07/15/21 13:33 07/15/21 14:00 07/15/21 14:00 Temperature 99.0 F Pulse Rate 60 64 63 Respiratory Rate 24 H Blood Pressure 128/53 L Pulse Oximetry 100 100 Oxygen Delivery Mechanical Ventilation Fraction of Inspired Oxygen 35 07/15/21 16:00 07/15/21 16:00 07/15/21 16:00 Temperature 99.3 F Pulse Rate 65 65 62 Respiratory Rate 14 24 H Blood Pressure 119/52 L Pulse Oximetry 100 100 Oxygen Delivery Mechanical Ventilation Fraction of Inspired Oxygen 07/15/21 16:00 07/15/21 17:20 07/15/21 18:00 Temperature 99.3 F Pulse Rate 64 72 Respiratory Rate 25 H Blood Pressure 138/55 L Pulse Oximetry 99 100 Oxygen Delivery Mechanical Ventilation Fraction of Inspired Oxygen 35 30 07/15/21 18:00 07/15/21 19:47 07/15/21 20:00 Temperature Pulse Rate 68 70 73 Respiratory Rate Blood Pressure 154/52 H 142/60 H Pulse Oximetry Oxygen
--- NOTE | 2021-07-16 13:22 | P.PNNP_ITS ---
Progress Note: A&P Assessment and Plan (1) GISELLE (acute kidney injury): Code(s): N17.9 - Acute kidney failure, unspecified Status: Acute Assessment and Plan: * unclear on etiology on presentation given fairly recent discharge from hospital * likely suffered some hemodynamic insult/ATN from cardiac arrest * due to exacerbation of CHF or something else(?) * follow renal function closely but suspect she may now be dialysis dependent given severity of baseline CKD.... * creatinine has fluctuated to extremes in the last few years * cannot deny the possibility of kidney disease progression as well (2) Chronic kidney disease, stage IV (severe): Code(s): N18.4 - Chronic kidney disease, stage 4 (severe) Status: Chronic Assessment and Plan: * baseline creatine averages around 2.0 - 2.7mg/dl * thought to be secondary to her HTN, DM, cardiac/vascular disease and need for diuretics to maintain her volume status * it was felt on last hospitalization that a higher creatinine would have to be accepted to achieve some degree of euvolemia.... * her creatinine was running around 3.1 - 3.3mg/dl at that time and on discharge * as noted above, given events during this hospitalization, she may be dialysis dependent/ESRD at this time -- time will tell (3) Cardiac arrest: Code(s): I46.9 - Cardiac arrest, cause unspecified Status: Acute Assessment and Plan: * likely multifactorial: * hypoglycemia * hypoxia * cardiac event(?) * infection(?) * recent Echo noted * already on anticoagulation (4) Acute and chronic respiratory failure: Code(s): J96.20 - Acute and chronic respiratory failure, unspecified whether with hypoxia or hypercapnia Status: Acute Assessment and Plan: * several issues noted: * cardiac arrest * congestive heart failure * pulmonary edema * possible pneumonia * possible aspiration * continue ventilator support * empiric antibiotics for pneumonia (CAP versus hospital-acquired versus aspiration) * ventilator weaning as tolerated (hopefully aggressive fluid removal/ultrafiltration with facilitate this) (5) Shock: Code(s): R57.9 - Shock, unspecified Status: Acute Assessment and Plan: * resolving * multiple issues noted: * cardiac arrest * possible sepsis/infection * BP medications (taking CEMENT BASED MATERIALS PUMP TENDER) * possible prerenal factors (i.e. intravascularly dry despite evidence of outward signs of volume overload) * off vasopressor support * follow culture data (blood, urine, sputum...etc) * empiric antibiotics as well (6) Acute on chronic diastolic heart failure: Code(s): I50.33 - Acute on chronic diastolic (congestive) heart failure Status: Acute Assessment and Plan: * suspected based on CXR findings, exam, and laboratory testing on admssion * complicated by her valvular heart disease as well * was on IV diuretics (although unclear how effective since admission) * follow daily weights, I/Os, and respiratory status - emehan catheter in place for accurate I/Os * continues fluid removal with dialysis (7) Anemia: Code(s): D64.9 - Anemia, unspecified Status: Chronic Assessment and Plan: * due to GISELLE, CKD, and acute illness * responded to Epogen therapy on last hospitalization * resumed with dialysis * follow trend of H/H (8) Diabetes: Qualifiers: Diabetes mellitus complication status: with other specified complication Diabetes mellitus
--- NOTE | 2021-07-16 13:22 | PM.PNNEP ---
Progress Note: A&P Assessment and Plan (1) GISELLE (acute kidney injury): Code(s): N17.9 - Acute kidney failure, unspecified Status: Acute Assessment and Plan: unclear on etiology on presentation given fairly recent discharge from hospital likely suffered some hemodynamic insult/ATN from cardiac arrest due to exacerbation of CHF or something else(?) follow renal function closely but suspect she may now be dialysis dependent given severity of baseline CKD.... creatinine has fluctuated to extremes in the last few years cannot deny the possibility of kidney disease progression as well (2) Chronic kidney disease, stage IV (severe): Code(s): N18.4 - Chronic kidney disease, stage 4 (severe) Status: Chronic Assessment and Plan: baseline creatine averages around 2.0 - 2.7mg/dl thought to be secondary to her HTN, DM, cardiac/vascular disease and need for diuretics to maintain her volume status it was felt on last hospitalization that a higher creatinine would have to be accepted to achieve some degree of euvolemia.... her creatinine was running around 3.1 - 3.3mg/dl at that time and on discharge as noted above, given events during this hospitalization, she may be dialysis dependent/ESRD at this time -- time will tell (3) Cardiac arrest: Code(s): I46.9 - Cardiac arrest, cause unspecified Status: Acute Assessment and Plan: likely multifactorial: hypoglycemia hypoxia cardiac event(?) infection(?) recent Echo noted already on anticoagulation (4) Acute and chronic respiratory failure: Code(s): J96.20 - Acute and chronic respiratory failure, unspecified whether with hypoxia or hypercapnia Status: Acute Assessment and Plan: several issues noted: cardiac arrest congestive heart failure pulmonary edema possible pneumonia possible aspiration continue ventilator support empiric antibiotics for pneumonia (CAP versus hospital-acquired versus aspiration) ventilator weaning as tolerated (hopefully aggressive fluid removal/ultrafiltration with facilitate this) (5) Shock: Code(s): R57.9 - Shock, unspecified Status: Acute Assessment and Plan: resolving multiple issues noted: cardiac arrest possible sepsis/infection BP medications (taking SOC[employer] WORK PROGRAM COORDINATOR) possible prerenal factors (i.e. intravascularly dry despite evidence of outward signs of volume overload) off vasopressor support follow culture data (blood, urine, sputum...etc) empiric antibiotics as well (6) Acute on chronic diastolic heart failure: Code(s): I50.33 - Acute on chronic diastolic (congestive) heart failure Status: Acute Assessment and Plan: suspected based on CXR findings, exam, and laboratory testing on admssion complicated by her valvular heart disease as well was on IV diuretics (although unclear how effective since admission) follow daily weights, I/Os, and respiratory status - meehan catheter in place for accurate I/Os continues fluid removal with dialysis (7) Anemia: Code(s): D64.9 - Anemia, unspecified Status: Chronic Assessment and Plan: due to GISELLE, CKD, and acute illness responded to Epogen therapy on last hospitalization resumed with dialysis follow trend of H/H (8) Diabetes: Qualifiers: Diabetes mellitus complication status: with other specified complication Diabetes mellitus residential insulin use: with residential use Diabetes mellitus type: type 2 Qualified Code(s): E11.69 - Type 2 diabetes mellitus with other specified complication; Z79.4 - intermediate manager (current) use of insulin Code(s): E11.9 - Type 2 diabetes mellitus without complications Status: Chronic Assessment and Plan: follow accuchecks particularly given issues with hypoglycemia glycemic control Will continue to follow. Subjective Date/time seen: 07/16/21 13:22 Tolerating dial
[2021-07-16] MEDS: EPOETIN ALFA-EPBX 20,000 UNITS/ML VIAL 20000 UNITS IV PUSH (15:18)
[2021-07-16 16:02] LABS: Glucose Point of Care 132 mg/dl (65-105)
[2021-07-16 17:07] LABS: Chloride Rand Ur 66 mmol/L (32-290); Chloride/Creatinine Rand Ur 125 (38-318); Creatinine Random Urine 53 mg/dL (20-275)
[2021-07-16] MEDS: ATORVASTATIN 40 MG TABLET PO (17:38)
[2021-07-16 19:54] LABS: Hepatitis B Core Ab Total Nonreactive (Nonreactive)
[2021-07-16 20:57] LABS: Glucose Point of Care 248 mg/dl (65-105)
[2021-07-16] MEDS: hydrALAZINE HCL 20 MG/ML VIAL 10 MG IV PUSH (21:04)
[2021-07-17] VITALS (23 sets, daily range): BP systolic 89–154; BP diastolic 47–63; PULSE 66–85; RESP 14–27; TEMP 36.9–37.9; O2SAT 95–100
[2021-07-17 00:02] LABS: Glucose Point of Care 206 mg/dl (65-105)
[2021-07-17] MEDS: INSULIN ASPART (*BKC) 100 UNITS/ML SUB-Q ×4 (04:30→16:23)
[2021-07-17 04:52] LABS: Glucose Point of Care 323 mg/dl (65-105)
[2021-07-17 04:55] LABS: Basophils Absolute Auto 0.1 K/mm3 (0.0-0.1); Basophils Percent Auto 0.5 % (0.2-1.2); Eosinophils Absolute Auto 0.5 K/mm3 (0-0.3); Eosinophils Percent Auto 4.7 % (0-4.4); Hematocrit 24.5 % (37.0-47.0); Hemoglobin 7.9 g/dL (12.0-15.0); Immature Granulocyte Absolute 0.06 K/mm3 (0.00-0.031); Immature Granulocyte Percent A 0.6 % (0-0.5); Immature Platelet Fraction Pct 10.3 % (0.9-11.2); Lymphocytes Absolute Auto 0.73 K/mm3 (0.9-3.2); Lymphocytes Percent Auto 7.1 % (18.3-44.2); Mean Corpuscular HGB Conc 32.2 g/dl (32-36); Mean Corpuscular Hemoglobin 31.6 pg (26-34); Mean Platelet Volume 12.4 fl (7.4-10.4); Monocytes Absolute Auto 1.1 K/mm3 (0.1-0.6); Neutrophils Absolute Auto 7.9 K/mm3 (1.3-6.7); Neutrophils Percent Auto 76.1 % (45.5-73.1); Platelet Count Result 105 k/mm3 (150-375); Red Cell Distribution Width 18.6 % (11.5-14.5); White Blood Count 10.3 K/mm3 (4.5-10.0)
[2021-07-17 05:03] LABS: Alveolar/Arterial O2 Gradient 100.7 mmHg; Base Excess ABG 2.8 mEq/l (+/-2.0); Carboxyhemoglobin 0.3 % THb (0-2.0); Fractional Inspired Oxygen 30 %; HCO3 ABG 26.5 mEq/l (22.0-26.0); Methemoglobin ABG 0.4 %THb (0-1.5); Oxygen Saturation ABG 95.1 % (95.0-100.0); Oxyhemoglobin 93.5 % THb (90.0-100.0); PO2 ABG 69.7 mmHg (80.0-100.0); PO2 FiO2 Ratio Arterial Blood 2.32 %; Reduced Hemoglobin 5.8 %THb (0-5.0); Total Hemoglobin 9.1 g/dL (12.0-18.0); pH ABG 7.473 (7.350-7.450)
[2021-07-17 05:04] LABS: Alanine Aminotransferase 26 U/L (6-35); Albumin Level 2.9 g/dL (3.5-5.1); Alkaline Phosphatase 91 U/L (38-126); Anion Gap 4 mmol/L (8-16); Aspartate Amino Transferase 26 U/L (14-36); Bilirubin,Total 1.2 mg/dL (0.2-1.3); Blood Urea Nitrogen 34 mg/dL (7-17); Calcium 8.2 mg/dL (8.4-10.2); Carbon Dioxide 29 mmol/L (22-30); Chloride 98 mmol/L (98-107); Device VENTILATOR; Estimated CRCL calculation 21 ml/min; Estimated Glomerular Filt Rate 23; Glucose 291 mg/dL (65-110); Magnesium 1.8 mg/dL (1.6-2.3); Modified Allen's Test Pass; Phosphorus 2.4 mg/dL (2.5-4.5); Site Drawn RIGHT RADIAL; Sodium 131 mmol/L (137-145)
[2021-07-17 05:05] LABS: Arterial Blood Gas PEEP 5 cmH2O; Arterial Blood Gas Vent Mode ASV
[2021-07-17 05:30] LABS: Vancomycin Random 8.7 ug/mL (10-20)
[2021-07-17] MEDS: TOLNAFTATE 1% POWDER 45 GM BTL 1 APPLIC TOPICAL ×3 (05:52→20:13)
[2021-07-17] MEDS: CENTRAL LINE FLUSH 10 ML IV PUSH ×3 (05:52→20:13)
[2021-07-17] MEDS: DORNASE ALFA INH SOLN 1 MG/ML 2.5 ML AMP 2.5 MG INHALATION ×2 (08:04→20:28)
[2021-07-17 08:08] LABS: Glucose Point of Care 262 mg/dl (65-105)
[2021-07-17] MEDS: polyethylene glycoL 3350 17 GM POWD.PACK PO (08:30)
[2021-07-17] MEDS: PANTOPRAZOLE SODIUM IV 40 MG VIAL IV PUSH ×2 (08:30→20:13)
[2021-07-17] MEDS: MULTIVITAMINS THERAPEUTIC TAB (*BKC) 1 TABLET PO (08:31)
[2021-07-17] MEDS: CHOLECALCIFEROL 1,000 UNITS TABLET 5000 UNITS PO (08:31)
[2021-07-17] MEDS: amLODIPine BESYLATE 5 MG TABLET PO (08:35)
[2021-07-17] MEDS: DOCUSATE SODIUM LIQ 100 MG/10 ML UDC PO (08:35)
[2021-07-17] MEDS: INSULIN GLARGINE (*BKC) 100 UNITS/ML SUB-Q (08:40)
[2021-07-17 10:56] LABS: Haptoglobin 20 mg/dL (43-212)
[2021-07-17 11:22] LABS: Alveolar/Arterial O2 Gradient 92.8 mmHg; Base Excess ABG 4.2 mEq/l (+/-2.0); Fractional Inspired Oxygen 30 %; HCO3 ABG 28.2 mEq/l (22.0-26.0); Oxygen Saturation ABG 95.7 % (95.0-100.0); PCO2 ABG 39.9 mmHg (35.0-45.0); PO2 ABG 74.2 mmHg (80.0-100.0); PO2 FiO2 Ratio Arterial Blood 2.47 %; pH ABG 7.467 (7.350-7.450)
[2021-07-17 11:26] LABS: Modified Allen's Test Pass; Site Drawn RIGHT RADIAL
[2021-07-17 11:27] LABS: Arterial Blood Gas Vent Mode SPONTANEOUS; Device VENTILATOR
[2021-07-17 11:28] LABS: Arterial Blood Gas PEEP 5 cmH2O; Arterial Blood Gas Pressure Support 8 cmH2O
[2021-07-17 11:31] LABS: Glucose Point of Care 306 mg/dl (65-105)
--- NOTE | 2021-07-17 12:02 | PCNFU ---
Nutrition Follow-Up Complete: Inadequate Oral Intake as related to mechanical ventilation as evidenced by tube feedings. Goal: Meet estimated nutritional needs. Patient is progressing towards goal. We will continue current goal. Pt current nutrition is Nepro at 40 ml/hr. Last recorded weight is 66.8 kg, down from 72.8 kg on admit. Bowel Motility:No BM noted. Labs Reviewed:PO4 2.4, Na 131, Hct 24.5,Hgb 7.9,Alb 2.9,BUN 34, GFR 23, Cr 2.10, Glu 291 Meds Noted:Miralax, Colace, Eliquis, MVI,Zofran, Zosyn, NovoLog, Lantus, Vit D, Protonix Skin: Maceration-groin, Edema noted. Additional Notes: Patient on breathing trial with plans for extubated. Tube feeding are currently on hold at this time. If patient remains on mechanical vent. If tube feedings restart recommend Nepro at 40 ml/hr over 22 hours with free water flush 30 ml q 4 hours. Monitoring:Will reassess every Tuesday and Tuesday.
--- NOTE | 2021-07-17 12:05 | PM.IMPN ---
Progress Note: A&P Assessment and Plan (1) Cardiac arrest: Code(s): I46.9 - Cardiac arrest, cause unspecified Status: Acute Assessment and Plan: Likely secondary to hypoglycemic episode. Now resolved. Supportive care in the ICU. (2) Acute and chronic respiratory failure: Code(s): J96.20 - Acute and chronic respiratory failure, unspecified whether with hypoxia or hypercapnia Status: Acute Assessment and Plan: Pneumonia versus diastolic CHF. Continue supportive care. Patient is currently on vanc and Zosyn. (3) Shock: Code(s): R57.9 - Shock, unspecified Status: Acute Assessment and Plan: Continue supportive care in the ICU. (4) Edema: Qualifiers: Edema type: localized Qualified Code(s): R60.0 - Localized edema Code(s): R60.9 - Edema, unspecified Status: Acute Assessment and Plan: DVT noted. intermediate probability PE on V/Q scan. Anticoagulation on hold (5) CKD (chronic kidney disease): Qualifiers: Chronic kidney disease stage: unspecified stage Qualified Code(s): N18.9 - Chronic kidney disease, unspecified Code(s): N18.9 - Chronic kidney disease, unspecified Status: Acute Assessment and Plan: Monitor electrolytes and function. Hemodialysis per Nephrology. (6) Volume overload: Code(s): E87.70 - Fluid overload, unspecified Status: Acute Assessment and Plan: See plan above (7) Congestive heart failure: Qualifiers: Heart failure type: diastolic Heart failure chronicity: acute on chronic Qualified Code(s): I50.33 - Acute on chronic diastolic (congestive) heart failure Code(s): I50.9 - Heart failure, unspecified Status: Acute Assessment and Plan: diastolic dysfunction with elevated RVSP. (8) Type 2 diabetes mellitus with hyperglycemia: Code(s): E11.65 - Type 2 diabetes mellitus with hyperglycemia Status: Acute Assessment and Plan: Monitor blood sugar. (9) Hypoglycemia: Code(s): E16.2 - Hypoglycemia, unspecified Status: Acute Assessment and Plan: Monitor blood sugar (10) Nausea and vomiting: Code(s): R11.2 - Nausea with vomiting, unspecified Status: Acute Assessment and Plan: monitor Subjective Date/time seen: 07/17/21 12:05 still intubated Exam Narrative: General: Pt is intubated, sedated and on mechanical ventilation Lungs/Chest: Trachea central Coarse BS B/L, bilateral diffuse rales, no wheezes, decreased air entry at bases Cardiac: RRR. Normal S1 S2. No murmurs Abdomen: Decreased bowel sounds.Soft. NT. ND. Extremities: bilateral pitting edema in all 4 extremities, left lower extremity significantly more than right (this is chronic as per the daughter) : Humphries in place now Neurologic: Patient is intubated sedated with Versed, does not open her eyes, nods to questions, follows simple commands in all extremities Objective Data Vital Signs Vital Signs: Vital Signs - 24 hr 07/16/21 12:45 07/16/21 12:45 07/16/21 14:00 Temperature 98.5 F 98.5 F 98.4 F Pulse Rate 68 68 68 Respiratory Rate 22 H 22 H 26 H Blood Pressure 143/60 H 143/60 H 151/59 H Pulse Oximetry 100 Oxygen Delivery Oxygen Flow Rate Fraction of Inspired Oxygen 07/16/21 13:15 07/16/21 13:30 07/16/21 14:00 Temperature Pulse Rate 68 67 69 Respiratory Rate Blood Pressure 149/60 H 153/62 H 151/59 H Pulse Oximetry Oxygen Delivery Oxygen Flow Rate Fraction of Inspired Oxygen 07/16/21 14:15 07/16/21 14:45 07/16/21 15:00 Temperature Pulse Rate 69 68 68 Respiratory Rate Blood Pressure 149/59 H 148/53 H 146/68 H Pulse Oximetry Oxygen Delivery Oxygen Flow Rate Fraction of Inspired Oxygen 07/16/21 15:15 07/16/21 15:30 07/16/21 15:18 Temperature Pulse Rate 70 70 71 Respiratory Rate Blood Pressure 162/62 H 165/65 H
--- NOTE | 2021-07-17 13:30 | WPDINTPN ---
Progress Note: A&P Assessment and Plan (1) Cardiac arrest: Code(s): I46.9 - Cardiac arrest, cause unspecified Status: Acute Assessment and Plan: Patient had a cardiac arrest (PEA) on 07/13/2020 which is most likely multifactorial. At that time her blood sugar was less than 20 so hypoglycemia is likely etiology. Patient was also hypoxic with diffuse pulmonary edema. 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 -07/13/2021: CT scan of the chest/abdomen/pelvis showed cardiomegaly, severe patchy consolidating infiltrates throughout both lungs likely reactive hilar or mediastinal lymphadenopathy. Small pleural effusions, anasarca, cholelithiasis, ascites, diverticulosis of left colon, no evidence of diverticulitis, stone line bilateral rib fractures 07/13/2021 echocardiogram showed moderate aortic valve stenosis with aortic valve area of 1.0 cm2, LV systolic function is normal with EF of 60-65%. Grade 2 diastolic dysfunction, moderate aortic valve regurgitation, severe tricuspid valve regurgitation, severe pulmonary hypertension with RVSP of 71 mmHg (2) Acute and chronic respiratory failure: Code(s): J96.20 - Acute and chronic respiratory failure, unspecified whether with hypoxia or hypercapnia Status: Acute Assessment and Plan: Acute Respiratory failure secondary to congestive heart failure, pulmonary edema, cardiac arrest, possible aspiration - 07/13/2021: Patient intubated during code blue for hypoxia -currently on CMV mode of ventilation, 40% FiO2 and peep of 5, continue mechanical ventilation support to prevent hypoxemia/hypercarbia and end organ damage. -Chest x-ray and ABGs reviewed -Low tidal volume ventilation strategy to prevent volutrauma - empiric Zosyn for aspiration pneumonia (07/13/2021), will add vancomycin (07/15) -07/13/2021 sputum cultures growing rare Gram-positive cocci -07/13/2021 urine cultures-negative -07/13/2021 preliminary blood cultures are negative x2 -Continue bronchodilators -continue Pulmozyme due to thick secretion -patient has received dialysis with good amount of fluid removal in the last 3 days -patient has been off sedation since yesterday, placed on SBT and did well, was successfully extubated today, 07/17/2021 (3) Shock: Code(s): R57.9 - Shock, unspecified Status: Acute Assessment and Plan: Multifactorial , likely due to cardiac arrest, possible sepsis, and patient also on multiple antihypertensive medications - patient has significant volume overload - OFF Levophed infusion, -Lactic acid was normal 1.0 -prolactin was 0.2 - empiric antibiotics as above -Cultures as above (4) Edema: Qualifiers: Edema type: localized Qualified Code(s): R60.0 - Localized edema Code(s): R60.9 - Edema, unspecified Status: Acute Assessment and Plan: - patient has diffuse anasarca patient has history of left leg swelling/edema significant more edema than right. -07/06/2021: Venous Dopplers showed DVT involving right peroneal veins -07/08/2021: V/Q scan showed intermediate probability for pulmonary embolism -patient remains on Eliquis -07/13/2021: Right IJ dialysis catheter was inserted, dialysis started on 07/14/2021 per Nephrology -edema is improving after removal of fluid with dialysis (5) CKD (chronic kidney disease): Q
--- NOTE | 2021-07-17 13:49 | P.PNNP_ITS ---
Progress Note: A&P Assessment and Plan (1) GISELLE (acute kidney injury): Code(s): N17.9 - Acute kidney failure, unspecified Status: Acute Assessment and Plan: * unclear on etiology on presentation given fairly recent discharge from hospital * possibly due to decompensated heart failure again * another consideration is just simple kidney disease progression (particularly, with recent/recurrent hospitalizations with GISELLE/ARF) * recent cardiac arrest likely resulted in some degree of a hemodynamic insult/ATN as well * follow renal function closely but suspect she may now be dialysis dependent given severity of baseline CKD.... * minimal urine output noted... (2) Chronic kidney disease, stage IV (severe): Code(s): N18.4 - Chronic kidney disease, stage 4 (severe) Status: Chronic Assessment and Plan: * baseline creatine averages around 2.0 - 2.7mg/dl * thought to be secondary to her HTN, DM, cardiac/vascular disease and need for diuretics to maintain her volume status * it was felt on last hospitalization that a higher creatinine would have to be accepted to achieve some degree of euvolemia.... * her creatinine was running around 3.1 - 3.3mg/dl at that time and on discharge * as noted above, given events during this hospitalization, she may be dialysis dependent/ESRD at this time -- time will tell (3) Cardiac arrest: Code(s): I46.9 - Cardiac arrest, cause unspecified Status: Acute Assessment and Plan: * likely multifactorial: * hypoglycemia * hypoxia * cardiac event(?) * infection(?) * recent Echo noted * already on anticoagulation (4) Acute and chronic respiratory failure: Code(s): J96.20 - Acute and chronic respiratory failure, unspecified whether with hypoxia or hypercapnia Status: Acute Assessment and Plan: * resolving - extubated at this time * several issues/etiologies noted: * cardiac arrest * congestive heart failure * valvular heart disease * pulmonary edema * possible pneumonia * possible aspiration * follow respiratory status closely * empiric antibiotics for pneumonia (CAP versus hospital-acquired versus aspiration) (5) Shock: Code(s): R57.9 - Shock, unspecified Status: Acute Assessment and Plan: * improving/resolved * multiple issues noted: * cardiac arrest * possible sepsis/infection * BP medications (taking BOTTLE BLOWER) * possible prerenal factors (i.e. intravascularly dry despite evidence of outward signs of volume overload) * off vasopressor support * follow culture data (blood, urine, sputum...etc) * empiric antibiotics as well (6) Acute on chronic diastolic heart failure: Code(s): I50.33 - Acute on chronic diastolic (congestive) heart failure Status: Acute Assessment and Plan: * suspected based on CXR findings, exam, and laboratory testing on admssion * complicated by her valvular heart disease as well * was on IV diuretics (although unclear how effective since admission) * follow daily weights, I/Os, and respiratory status - meehan catheter in place for accurate I/Os * based of CXR findings, continue aggressive ultrafiltration/fluid removal as tolerated (7) Anemia: Code(s): D64.9 - Anemia, unspecified Status: Chronic Assessment and Plan: * due to GISELLE, CKD, and acute illness * responded to Epogen therapy on last hospitalization * resumed this with dialysis * follow trend of H/H (8) Diabetes:
--- NOTE | 2021-07-17 13:49 | PM.PNNEP ---
Progress Note: A&P Assessment and Plan (1) GISELLE (acute kidney injury): Code(s): N17.9 - Acute kidney failure, unspecified Status: Acute Assessment and Plan: unclear on etiology on presentation given fairly recent discharge from hospital possibly due to decompensated heart failure again another consideration is just simple kidney disease progression (particularly, with recent/recurrent hospitalizations with GISELLE/ARF) recent cardiac arrest likely resulted in some degree of a hemodynamic insult/ATN as well follow renal function closely but suspect she may now be dialysis dependent given severity of baseline CKD.... minimal urine output noted... (2) Chronic kidney disease, stage IV (severe): Code(s): N18.4 - Chronic kidney disease, stage 4 (severe) Status: Chronic Assessment and Plan: baseline creatine averages around 2.0 - 2.7mg/dl thought to be secondary to her HTN, DM, cardiac/vascular disease and need for diuretics to maintain her volume status it was felt on last hospitalization that a higher creatinine would have to be accepted to achieve some degree of euvolemia.... her creatinine was running around 3.1 - 3.3mg/dl at that time and on discharge as noted above, given events during this hospitalization, she may be dialysis dependent/ESRD at this time -- time will tell (3) Cardiac arrest: Code(s): I46.9 - Cardiac arrest, cause unspecified Status: Acute Assessment and Plan: likely multifactorial: hypoglycemia hypoxia cardiac event(?) infection(?) recent Echo noted already on anticoagulation (4) Acute and chronic respiratory failure: Code(s): J96.20 - Acute and chronic respiratory failure, unspecified whether with hypoxia or hypercapnia Status: Acute Assessment and Plan: resolving - extubated at this time several issues/etiologies noted: cardiac arrest congestive heart failure valvular heart disease pulmonary edema possible pneumonia possible aspiration follow respiratory status closely empiric antibiotics for pneumonia (CAP versus hospital-acquired versus aspiration) (5) Shock: Code(s): R57.9 - Shock, unspecified Status: Acute Assessment and Plan: improving/resolved multiple issues noted: cardiac arrest possible sepsis/infection BP medications (taking ENTERPRISE APPLICATION ANALYST) possible prerenal factors (i.e. intravascularly dry despite evidence of outward signs of volume overload) off vasopressor support follow culture data (blood, urine, sputum...etc) empiric antibiotics as well (6) Acute on chronic diastolic heart failure: Code(s): I50.33 - Acute on chronic diastolic (congestive) heart failure Status: Acute Assessment and Plan: suspected based on CXR findings, exam, and laboratory testing on admssion complicated by her valvular heart disease as well was on IV diuretics (although unclear how effective since admission) follow daily weights, I/Os, and respiratory status - meehan catheter in place for accurate I/Os based of CXR findings, continue aggressive ultrafiltration/fluid removal as tolerated (7) Anemia: Code(s): D64.9 - Anemia, unspecified Status: Chronic Assessment and Plan: due to GISELLE, CKD, and acute illness responded to Epogen therapy on last hospitalization resumed this with dialysis follow trend of H/H (8) Diabetes: Qualifiers: Diabetes mellitus complication status: with other specified complication Diabetes mellitus terminologist insulin use: with terminologist use Diabetes mellitus type: type 2 Qualified Code(s): E11.69 - Type 2 diabetes mellitus with other specified complication; Z79.4 - terminal operator (current) use of insulin Code(s): E11.9 - Type 2 diabetes mellitus without complications Status: Chronic Assessment and Plan: follow accuchecks particularly given issues with hypoglycemia glycemic contro
[2021-07-17 16:01] LABS: Glucose Point of Care 209 mg/dl (65-105)
[2021-07-17 20:13] LABS: Glucose Point of Care 143 mg/dl (65-105)
[2021-07-17] MEDS: IPRATROPIUM BR 0.02% INH SOLN 0.5 MG/2.5 ML VIAL INHALATION (20:28)
[2021-07-17] MEDS: ALBUTEROL SULFATE NEB 2.5 MG/0.5 ML INH INHALATION (20:28)
[2021-07-17 22:24] LABS: Glucose Point of Care 147 mg/dl (65-105)
[2021-07-18] VITALS (41 sets, daily range): BP systolic 108–168; BP diastolic 52–68; PULSE 69–88; RESP 18–30; TEMP 36–37.4; O2SAT 92–100
[2021-07-18 01:06] LABS: Glucose Point of Care 196 mg/dl (65-105)
[2021-07-18] MEDS: ALBUTEROL SULFATE NEB 2.5 MG/0.5 ML INH INHALATION ×3 (02:04→21:18)
[2021-07-18] MEDS: IPRATROPIUM BR 0.02% INH SOLN 0.5 MG/2.5 ML VIAL INHALATION ×3 (02:04→21:18)
[2021-07-18 05:20] LABS: Glucose Point of Care 239 mg/dl (65-105)
[2021-07-18 05:23] LABS: Hemoglobin 8.4 g/dL (12.0-15.0); Mean Corpuscular HGB Conc 31.1 g/dl (32-36); Mean Corpuscular Hemoglobin 31.5 pg (26-34); Mean Corpuscular Volume 101.1 fl (80-100); Mean Platelet Volume 12.4 fl (7.4-10.4); Platelet Count Result 122 k/mm3 (150-375); Red Blood Count 2.67 M/mm3 (4.2-5.4); Red Cell Distribution Width 18.7 % (11.5-14.5); White Blood Count 11.3 K/mm3 (4.5-10.0)
[2021-07-18] MEDS: INSULIN ASPART (*BKC) 100 UNITS/ML SUB-Q ×2 (05:26→09:18)
[2021-07-18] MEDS: TOLNAFTATE 1% POWDER 45 GM BTL 1 APPLIC TOPICAL ×3 (05:26→21:02)
[2021-07-18] MEDS: CENTRAL LINE FLUSH 10 ML IV PUSH ×3 (05:27→21:03)
[2021-07-18 05:41] LABS: Alanine Aminotransferase 22 U/L (6-35); Albumin Level 2.9 g/dL (3.5-5.1); Alkaline Phosphatase 80 U/L (38-126); Anion Gap 7 mmol/L (8-16); Aspartate Amino Transferase 22 U/L (14-36); Bilirubin,Total 1.1 mg/dL (0.2-1.3); Blood Urea Nitrogen 40 mg/dL (7-17); Calcium 8.2 mg/dL (8.4-10.2); Carbon Dioxide 29 mmol/L (22-30); Chloride 97 mmol/L (98-107); Estimated CRCL calculation 17 ml/min; Estimated Glomerular Filt Rate 17; Glucose 243 mg/dL (65-110); Magnesium 1.9 mg/dL (1.6-2.3); Phosphorus 3.4 mg/dL (2.5-4.5); Potassium 4.2 mmol/L (3.4-5.0); Sodium 133 mmol/L (137-145)
[2021-07-18] MEDS: DORNASE ALFA INH SOLN 1 MG/ML 2.5 ML AMP 2.5 MG INHALATION ×2 (07:33→21:18)
[2021-07-18] MEDS: EPOETIN ALFA-EPBX 20,000 UNITS/ML VIAL 20000 UNITS IV PUSH (08:37)
[2021-07-18 08:44] LABS: Glucose Point of Care 205 mg/dl (65-105)
--- NOTE | 2021-07-18 08:46 | WPDINTPN ---
Progress Note: A&P Assessment and Plan (1) Cardiac arrest: Code(s): I46.9 - Cardiac arrest, cause unspecified Status: Acute Assessment and Plan: Patient had a cardiac arrest (PEA) on 07/13/2020 which is most likely multifactorial. At that time her blood sugar was less than 20 so hypoglycemia is likely etiology. Patient was also hypoxic with diffuse pulmonary edema. 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 -07/13/2021: CT scan of the chest/abdomen/pelvis showed cardiomegaly, severe patchy consolidating infiltrates throughout both lungs likely reactive hilar or mediastinal lymphadenopathy. Small pleural effusions, anasarca, cholelithiasis, ascites, diverticulosis of left colon, no evidence of diverticulitis, stone line bilateral rib fractures 07/13/2021 echocardiogram showed moderate aortic valve stenosis with aortic valve area of 1.0 cm2, LV systolic function is normal with EF of 60-65%. Grade 2 diastolic dysfunction, moderate aortic valve regurgitation, severe tricuspid valve regurgitation, severe pulmonary hypertension with RVSP of 71 mmHg (2) Acute and chronic respiratory failure: Code(s): J96.20 - Acute and chronic respiratory failure, unspecified whether with hypoxia or hypercapnia Status: Acute Assessment and Plan: Acute Respiratory failure secondary to congestive heart failure, pulmonary edema, cardiac arrest, possible aspiration - 07/13/2021: Patient intubated during code blue for hypoxia -07/17/2021 successfully extubated. Currently on 2 L nasal cannula with O2 2 sats -encourage and assist with incentive spirometry -07/18/2021: Chest x-ray shows diffuse lung disease consistent with pneumonia and/or pulmonary edema -continue Zosyn for aspiration pneumonia (07/13/2021), will add vancomycin (07/15) -07/13/2021 sputum cultures growing rare Gram-positive cocci -07/13/2021 urine cultures-negative -07/13/2021 preliminary blood cultures are negative x2 -Continue bronchodilators -continue Pulmozyme due to thick secretion -patient has received dialysis with good amount of fluid removal (3) Shock: Code(s): R57.9 - Shock, unspecified Status: Acute Assessment and Plan: RESOLVED Multifactorial , likely due to cardiac arrest, possible sepsis, and patient also on multiple antihypertensive medications - patient has significant volume overload - OFF Levophed infusion, -Lactic acid was normal 1.0 -prolactin was 0.2 - empiric antibiotics as above -Cultures as above (4) Edema: Qualifiers: Edema type: localized Qualified Code(s): R60.0 - Localized edema Code(s): R60.9 - Edema, unspecified Status: Acute Assessment and Plan: - patient has diffuse anasarca patient has history of left leg swelling/edema significant more edema than right. -07/06/2021: Venous Dopplers showed DVT involving right peroneal veins -07/08/2021: V/Q scan showed intermediate probability for pulmonary embolism -patient remains on Eliquis -07/13/2021: Right IJ dialysis catheter was inserted, dialysis started on 07/14/2021 per Nephrology -edema is improving after removal of fluid with dialysis (5) CKD (chronic kidney disease): Qualifiers: Chronic kidney disease stage: unspecified stage Qualified Code(s): N18.9 - Chronic kidney disease, unspecified Code(s): N18.9 - Chronic kidney disease, unspecified Status: Acute Assessment and Plan: Patient has history of chronic kidney disease which has been gradually worsening. She has had intermitten
[2021-07-18] MEDS: INSULIN GLARGINE (*BKC) 100 UNITS/ML SUB-Q (09:18)
[2021-07-18] MEDS: PANTOPRAZOLE SODIUM IV 40 MG VIAL IV PUSH ×2 (09:22→21:03)
--- NOTE | 2021-07-18 09:31 | P.PNNP_ITS ---
Progress Note: A&P Assessment and Plan (1) GISELLE (acute kidney injury): Code(s): N17.9 - Acute kidney failure, unspecified Status: Acute Assessment and Plan: * unclear on etiology on presentation given fairly recent discharge from hospital * possibly due to decompensated heart failure again * another consideration is just simple kidney disease progression (particularly, with recent/recurrent hospitalizations with GISELLE/ARF) * recent cardiac arrest likely resulted in some degree of a hemodynamic insult/ATN as well * follow renal function closely but suspect she may now be dialysis dependent given severity of baseline CKD.... * minimal urine output noted... * HD today (2) Chronic kidney disease, stage IV (severe): Code(s): N18.4 - Chronic kidney disease, stage 4 (severe) Status: Chronic Assessment and Plan: * baseline creatine averages around 2.0 - 2.7mg/dl * thought to be secondary to her HTN, DM, cardiac/vascular disease and need for diuretics to maintain her volume status * it was felt on last hospitalization that a higher creatinine would have to be accepted to achieve some degree of euvolemia.... * her creatinine was running around 3.1 - 3.3mg/dl at that time and on discharge * as noted above, given events during this hospitalization, she may be dialysis dependent/ESRD at this time -- time will tell (3) Cardiac arrest: Code(s): I46.9 - Cardiac arrest, cause unspecified Status: Acute Assessment and Plan: * likely multifactorial: * hypoglycemia (suspect the predominant issue) * hypoxia * cardiac event(?) * infection(?) * recent Echo noted * already on anticoagulation (4) Acute and chronic respiratory failure: Code(s): J96.20 - Acute and chronic respiratory failure, unspecified whether with hypoxia or hypercapnia Status: Acute Assessment and Plan: * resolving * several issues/etiologies noted: * cardiac arrest * congestive heart failure * valvular heart disease * pulmonary edema * possible pneumonia * possible aspiration * follow respiratory status closely * empiric antibiotics for pneumonia (CAP versus hospital-acquired versus a spiration) (5) Acute on chronic diastolic heart failure: Code(s): I50.33 - Acute on chronic diastolic (congestive) heart failure Status: Acute Assessment and Plan: * suspected based on CXR findings, exam, and laboratory testing on admssion * complicated by her valvular heart disease as well * was on IV diuretics (although unclear how effective since admission) * follow daily weights, I/Os, and respiratory status - meehan catheter in place for accurate I/Os * based of CXR findings, continue aggressive ultrafiltration/fluid removal as tolerated * not opposed to resuming IV diuretics since stable hemodynamics (6) Anemia: Code(s): D64.9 - Anemia, unspecified Status: Chronic Assessment and Plan: * due to GISELLE, CKD, and acute illness * responded to Epogen therapy on last hospitalization * resumed this with dialysis * follow trend of H/H (7) Diabetes: Qualifiers: Diabetes mellitus type: type 2 Diabetes mellitus usp insulin use: with usp use Diabetes mellitus complication status: with other specified complication Qualified Code(s): E11.69 - Type 2 diabetes mellitus with other specified complication; Z79.4 - intermediate (current) use of insulin Code(s): E11.9 - Type 2 diabetes mellitus without complications Status:
--- NOTE | 2021-07-18 09:31 | PM.PNNEP ---
Progress Note: A&P Assessment and Plan (1) GISELLE (acute kidney injury): Code(s): N17.9 - Acute kidney failure, unspecified Status: Acute Assessment and Plan: unclear on etiology on presentation given fairly recent discharge from hospital possibly due to decompensated heart failure again another consideration is just simple kidney disease progression (particularly, with recent/recurrent hospitalizations with GISELLE/ARF) recent cardiac arrest likely resulted in some degree of a hemodynamic insult/ATN as well follow renal function closely but suspect she may now be dialysis dependent given severity of baseline CKD.... minimal urine output noted... HD today (2) Chronic kidney disease, stage IV (severe): Code(s): N18.4 - Chronic kidney disease, stage 4 (severe) Status: Chronic Assessment and Plan: baseline creatine averages around 2.0 - 2.7mg/dl thought to be secondary to her HTN, DM, cardiac/vascular disease and need for diuretics to maintain her volume status it was felt on last hospitalization that a higher creatinine would have to be accepted to achieve some degree of euvolemia.... her creatinine was running around 3.1 - 3.3mg/dl at that time and on discharge as noted above, given events during this hospitalization, she may be dialysis dependent/ESRD at this time -- time will tell (3) Cardiac arrest: Code(s): I46.9 - Cardiac arrest, cause unspecified Status: Acute Assessment and Plan: likely multifactorial: hypoglycemia (suspect the predominant issue) hypoxia cardiac event(?) infection(?) recent Echo noted already on anticoagulation (4) Acute and chronic respiratory failure: Code(s): J96.20 - Acute and chronic respiratory failure, unspecified whether with hypoxia or hypercapnia Status: Acute Assessment and Plan: resolving several issues/etiologies noted: cardiac arrest congestive heart failure valvular heart disease pulmonary edema possible pneumonia possible aspiration follow respiratory status closely empiric antibiotics for pneumonia (CAP versus hospital-acquired versus aspiration) (5) Acute on chronic diastolic heart failure: Code(s): I50.33 - Acute on chronic diastolic (congestive) heart failure Status: Acute Assessment and Plan: suspected based on CXR findings, exam, and laboratory testing on admssion complicated by her valvular heart disease as well was on IV diuretics (although unclear how effective since admission) follow daily weights, I/Os, and respiratory status - meehan catheter in place for accurate I/Os based of CXR findings, continue aggressive ultrafiltration/fluid removal as tolerated not opposed to resuming IV diuretics since stable hemodynamics (6) Anemia: Code(s): D64.9 - Anemia, unspecified Status: Chronic Assessment and Plan: due to GISELLE, CKD, and acute illness responded to Epogen therapy on last hospitalization resumed this with dialysis follow trend of H/H (7) Diabetes: Qualifiers: Diabetes mellitus type: type 2 Diabetes mellitus intermediate manager insulin use: with jail use Diabetes mellitus complication status: with other specified complication Qualified Code(s): E11.69 - Type 2 diabetes mellitus with other specified complication; Z79.4 - meterman (current) use of insulin Code(s): E11.9 - Type 2 diabetes mellitus without complications Status: Chronic Assessment and Plan: follow accuchecks particularly given issues with hypoglycemia glycemic control Discussed case with Dr. Alvares. Will continue to follow. Subjective Date/time seen: 07/18/21 09:31 Tolerating dialysis treatment at the time of my visit (seen on HD at 9:10AM); awake and alert with stable mentation; still not making much urine output and edema/anasarca persists; respiratory status remains stable although CXR results noted th
--- NOTE | 2021-07-18 10:46 | PCSTNOTE ---
Please refer to the Bedside Swallow Evaluation in the EMR. Please note, silent aspiration cannot be ruled out at bedside.
[2021-07-18] MEDS: KETOROLAC 15 MG/ML VIAL (*BKC) IV PUSH (11:00)
[2021-07-18] MEDS: LIDOCAINE 5% PATCH 1 PATCH TRANSDERM (11:00)
--- NOTE | 2021-07-18 11:00 | PM.IMPN ---
Progress Note: A&P Assessment and Plan (1) Cardiac arrest: Code(s): I46.9 - Cardiac arrest, cause unspecified Status: Acute Assessment and Plan: Patient had a cardiac arrest (PEA) on 07/13/2020 which is most likely multifactorial. At that time her blood sugar was less than 20 so hypoglycemia is likely etiology. Patient was also hypoxic with diffuse pulmonary edema. (2) Acute and chronic respiratory failure: Code(s): J96.20 - Acute and chronic respiratory failure, unspecified whether with hypoxia or hypercapnia Status: Acute Assessment and Plan: Acute Respiratory failure secondary to congestive heart failure, pulmonary edema, cardiac arrest, possible aspiration - 07/13/2021: Patient intubated during code blue for hypoxia -07/17/2021 successfully extubated. Currently on 2 L nasal cannula with O2 2 sats -encourage and assist with incentive spirometry -07/18/2021: Chest x-ray shows diffuse lung disease consistent with pneumonia and/or pulmonary edema -continue Zosyn for aspiration pneumonia (07/13/2021), will add vancomycin (07/15) -07/13/2021 sputum cultures growing rare Gram-positive cocci -07/13/2021 urine cultures-negative -07/13/2021 preliminary blood cultures are negative x2 -Continue bronchodilators -continue Pulmozyme due to thick secretion -patient has received dialysis with good amount of fluid removal (3) Shock: Code(s): R57.9 - Shock, unspecified Status: Acute Assessment and Plan: RESOLVED Multifactorial , likely due to cardiac arrest, possible sepsis, and patient also on multiple antihypertensive medications - patient has significant volume overload - OFF Levophed infusion, -Lactic acid was normal 1.0 -prolactin was 0.2 - empiric antibiotics as above -Cultures as above (4) Edema: Qualifiers: Edema type: localized Qualified Code(s): R60.0 - Localized edema Code(s): R60.9 - Edema, unspecified Status: Acute Assessment and Plan: - patient has diffuse anasarca patient has history of left leg swelling/edema significant more edema than right. -07/06/2021: Venous Dopplers showed DVT involving right peroneal veins -07/08/2021: V/Q scan showed intermediate probability for pulmonary embolism -patient remains on Eliquis -07/13/2021: Right IJ dialysis catheter was inserted, dialysis started on 07/14/2021 per Nephrology -edema is improving after removal of fluid with dialysis (5) CKD (chronic kidney disease): Qualifiers: Chronic kidney disease stage: unspecified stage Qualified Code(s): N18.9 - Chronic kidney disease, unspecified Code(s): N18.9 - Chronic kidney disease, unspecified Status: Acute Assessment and Plan: Patient has history of chronic kidney disease which has been gradually worsening. She has had intermittent bouts of acute kidney injury with improvement - Appreciate nephrology following the patient -significant volume overload -07/13/2021: Right IJ dialysis catheter was inserted -07/14/2021 dialysis started for fluid removal -minimal urine output overnight -dialysis per Nephrology (6) Volume overload: Code(s): E87.70 - Fluid overload, unspecified Status: Acute Assessment and Plan: see above (7) Congestive heart failure: Qualifiers: Heart failure type: diastolic Heart failure chronicity: acute on chronic Qualified Code(s): I50.33 - Acute on chronic diastolic (congestive) heart failure Code(s): I50.9 - Heart failure, unspecified Status: Acute Assessment and Plan: most recent echo 06/20/2021 Summary ? 1. Complete two-dimensional, color flow and Doppler transthoracic echocardiogram is performed. ? 2. Left ventricular systolic function is normal, estimated at 50-55%. ? 3. There is moderately increased left ventricular wall thickness. ? 4. The left ventricular diastolic function is grade II diastolic dysfunction. ? 5. Ri
[2021-07-18 12:43] LABS: Glucose Point of Care 149 mg/dl (65-105)
--- NOTE | 2021-07-18 12:59 | PCSTNOTE ---
Please refer to the Modified Barium Swallow Evaluation in the EMR.
[2021-07-18] MEDS: hydrALAZINE HCL 20 MG/ML VIAL 10 MG IV PUSH (15:24)
[2021-07-18] MEDS: ATORVASTATIN 40 MG TABLET PO (17:33)
[2021-07-18 18:10] LABS: Glucose Point of Care 123 mg/dl (65-105)
[2021-07-18 19:41] LABS: Glucose Point of Care 178 mg/dl (65-105)
[2021-07-18 20:25] LABS: Vancomycin Random 15.1 ug/mL (10-20)
[2021-07-18] MEDS: DOCUSATE SODIUM LIQ 100 MG/10 ML UDC PO (21:10)
[2021-07-18] MEDS: ACETAMINOPHEN ELIXIR 325 MG/10.15 ML UDC 650 MG PO (22:25)
[2021-07-19] VITALS (34 sets, daily range): BP systolic 115–168; BP diastolic 50–81; PULSE 69–94; RESP 18–28; TEMP 37.2–37.9; O2SAT 92–100
[2021-07-19] MEDS: INSULIN ASPART (*BKC) 100 UNITS/ML SUB-Q ×5 (00:42→18:42)
[2021-07-19 00:43] LABS: Glucose Point of Care 283 mg/dl (65-105)
[2021-07-19] MEDS: CENTRAL LINE FLUSH 10 ML IV PUSH ×3 (06:06→21:03)
[2021-07-19] MEDS: TOLNAFTATE 1% POWDER 45 GM BTL 1 APPLIC TOPICAL ×3 (06:06→21:03)
[2021-07-19 06:17] LABS: Glucose Point of Care 378 mg/dl (65-105)
[2021-07-19 06:18] LABS: Glucose Point of Care 421 mg/dl (65-105)
[2021-07-19 06:18] LABS: Basophils Absolute Auto 0.1 K/mm3 (0.0-0.1); Basophils Percent Auto 0.8 % (0.2-1.2); Eosinophils Absolute Auto 0.1 K/mm3 (0-0.3); Eosinophils Percent Auto 1.1 % (0-4.4); Hematocrit 27.8 % (37.0-47.0); Hemoglobin 8.4 g/dL (12.0-15.0); Immature Granulocyte Absolute 0.08 K/mm3 (0.00-0.031); Immature Granulocyte Percent A 0.8 % (0-0.5); Lymphocytes Absolute Auto 0.81 K/mm3 (0.9-3.2); Lymphocytes Percent Auto 8.4 % (18.3-44.2); Mean Corpuscular HGB Conc 30.2 g/dl (32-36); Mean Corpuscular Hemoglobin 32.1 pg (26-34); Mean Corpuscular Volume 106.1 fl (80-100); Mean Platelet Volume 11.5 fl (7.4-10.4); Monocytes Absolute Auto 1.2 K/mm3 (0.1-0.6); Monocytes Percent Auto 12.5 % (2.6-8.5); Neutrophils Absolute Auto 7.4 K/mm3 (1.3-6.7); Neutrophils Percent Auto 76.4 % (45.5-73.1); Platelet Count Result 136 k/mm3 (150-375); Red Blood Count 2.62 M/mm3 (4.2-5.4); Red Cell Distribution Width 19.3 % (11.5-14.5); White Blood Count 9.7 K/mm3 (4.5-10.0)
[2021-07-19 06:21] LABS: Glucose Point of Care 472 mg/dl (65-105)
[2021-07-19 06:29] LABS: Alanine Aminotransferase 20 U/L (6-35); Albumin Level 3.2 g/dL (3.5-5.1); Alkaline Phosphatase 102 U/L (38-126); Anion Gap 12 mmol/L (8-16); Aspartate Amino Transferase 22 U/L (14-36); Bilirubin,Total 1.4 mg/dL (0.2-1.3); Blood Urea Nitrogen 32 mg/dL (7-17); Calcium 8.3 mg/dL (8.4-10.2); Carbon Dioxide 24 mmol/L (22-30); Chloride 97 mmol/L (98-107); Estimated CRCL calculation 18 ml/min; Estimated Glomerular Filt Rate 20; Glucose 421 mg/dL (65-110); Phosphorus 3.8 mg/dL (2.5-4.5); Potassium 4.3 mmol/L (3.4-5.0); Sodium 133 mmol/L (137-145)
[2021-07-19] MEDS: ALBUTEROL SULFATE NEB 2.5 MG/0.5 ML INH INHALATION ×2 (07:27→20:15)
[2021-07-19] MEDS: DORNASE ALFA INH SOLN 1 MG/ML 2.5 ML AMP 2.5 MG INHALATION ×2 (07:27→20:15)
[2021-07-19] MEDS: IPRATROPIUM BR 0.02% INH SOLN 0.5 MG/2.5 ML VIAL INHALATION ×2 (07:27→20:15)
[2021-07-19 09:19] LABS: Glucose Point of Care 413 mg/dl (65-105)
[2021-07-19] MEDS: DOCUSATE SODIUM LIQ 100 MG/10 ML UDC PO ×2 (09:37→21:03)
[2021-07-19] MEDS: CHOLECALCIFEROL 1,000 UNITS TABLET 5000 UNITS PO (09:37)
[2021-07-19] MEDS: MULTIVITAMINS THERAPEUTIC TAB (*BKC) 1 TABLET PO (09:37)
[2021-07-19] MEDS: polyethylene glycoL 3350 17 GM POWD.PACK PO (09:37)
[2021-07-19] MEDS: PANTOPRAZOLE SODIUM IV 40 MG VIAL IV PUSH ×2 (09:37→21:03)
[2021-07-19] MEDS: INSULIN GLARGINE (*BKC) 100 UNITS/ML 10 UNITS SUB-Q (09:44)
--- NOTE | 2021-07-19 11:45 | PM.IMPN ---
Progress Note: A&P Assessment and Plan (1) Cardiac arrest: Code(s): I46.9 - Cardiac arrest, cause unspecified Status: Acute Assessment and Plan: Patient had a cardiac arrest (PEA) on 07/13/2020 which is most likely multifactorial. At that time her blood sugar was less than 20 so hypoglycemia is likely etiology. Patient was also hypoxic with diffuse pulmonary edema. (2) Acute and chronic respiratory failure: Code(s): J96.20 - Acute and chronic respiratory failure, unspecified whether with hypoxia or hypercapnia Status: Acute Assessment and Plan: Acute Respiratory failure secondary to congestive heart failure, pulmonary edema, cardiac arrest, possible aspiration/PNA -continue Zosyn for aspiration pneumonia (07/13/2021), will add vancomycin (07/15) (3) Shock: Code(s): R57.9 - Shock, unspecified Status: Acute Assessment and Plan: RESOLVED Multifactorial , likely due to cardiac arrest, possible sepsis, and patient also on multiple antihypertensive medications (4) Edema: Qualifiers: Edema type: localized Qualified Code(s): R60.0 - Localized edema Code(s): R60.9 - Edema, unspecified Status: Acute Assessment and Plan: -07/13/2021: Right IJ dialysis catheter was inserted, dialysis started on 07/14/2021 per Nephrology -edema is improving after removal of fluid with dialysis (5) CKD (chronic kidney disease): Qualifiers: Chronic kidney disease stage: unspecified stage Qualified Code(s): N18.9 - Chronic kidney disease, unspecified Code(s): N18.9 - Chronic kidney disease, unspecified Status: Acute Assessment and Plan: -dialysis per Nephrology (6) Volume overload: Code(s): E87.70 - Fluid overload, unspecified Status: Acute Assessment and Plan: see above (7) Congestive heart failure: Qualifiers: Heart failure type: diastolic Heart failure chronicity: acute on chronic Qualified Code(s): I50.33 - Acute on chronic diastolic (congestive) heart failure Code(s): I50.9 - Heart failure, unspecified Status: Acute Assessment and Plan: most recent echo 06/20/2021 Summary ? 1. Complete two-dimensional, color flow and Doppler transthoracic echocardiogram is performed. ? 2. Left ventricular systolic function is normal, estimated at 50-55%. ? 3. There is moderately increased left ventricular wall thickness. ? 4. The left ventricular diastolic function is grade II diastolic dysfunction. ? 5. Right ventricular chamber dimension is mildly enlarged. ? 6. Right ventricular systolic function is reduced. ? 7. Left atrial chamber dimension is severely enlarged. ? 8. Right atrial chamber dimension is moderately enlarged. ? 9. There is moderate aortic valve stenosis. ? 10. There is moderate aortic valve regurgitation. ? 11. Severe pulmonary hypertension, estimated pulmonary arterial systolic pressure is 74 mmHg. ? 12. Dilated inferior vena cava with <50% collapse upon inspiration consistent with elevated right atrial pressure, 15 mmHg. 07/13/2021: Limited echo as above Hold beta-kenndey due to shock continue anticoagulation cardiology has been consulted and has seen the patient (8) Type 2 diabetes mellitus with hyperglycemia: Code(s): E11.65 - Type 2 diabetes mellitus with hyperglycemia Status: Acute Assessment and Plan: Patient had a cardiac arrest likely related to hypoglycemia and was given D50. -blood sugar have been stable, continue low-dose Lantus - continue sliding scale insulin q.4 hours and Accu-Chek (9) Nausea and vomiting: Code(s): R11.2 - Nausea with vomiting, unspecified Status: Acute Assessment and Plan: monitor (10) Anemia: Code(s): D64.9 - Anemia, unspecified Status: Chronic Assessment and Plan: monitor and transfuse as needed Subjective Date/time seen: 07/19/21 11:45 No significan
[2021-07-19] MEDS: ACETAMINOPHEN ELIXIR 325 MG/10.15 ML UDC 650 MG PO (12:55)
--- NOTE | 2021-07-19 12:55 | P.PNNP_ITS ---
Progress Note: A&P Assessment and Plan (1) GISELLE (acute kidney injury): Code(s): N17.9 - Acute kidney failure, unspecified Status: Acute Assessment and Plan: * unclear on etiology on presentation given fairly recent discharge from hospital * possibly due to decompensated heart failure again * another consideration is just simple kidney disease progression (particularly, with recent/recurrent hospitalizations with GISELLE/ARF) * recent cardiac arrest likely resulted in some degree of a hemodynamic insult/ATN as well * follow renal function closely but suspect she may now be dialysis dependent given severity of baseline CKD.... * minimal urine output noted... * HD tomorrow (2) Chronic kidney disease, stage IV (severe): Code(s): N18.4 - Chronic kidney disease, stage 4 (severe) Status: Chronic Assessment and Plan: * baseline creatine averages around 2.0 - 2.7mg/dl * thought to be secondary to her HTN, DM, cardiac/vascular disease and need for diuretics to maintain her volume status * it was felt on last hospitalization that a higher creatinine would have to be accepted to achieve some degree of euvolemia.... * her creatinine was running around 3.1 - 3.3mg/dl at that time and on discharge * as noted above, given events during this hospitalization, she may be dialysis dependent/ESRD at this time... (3) Cardiac arrest: Code(s): I46.9 - Cardiac arrest, cause unspecified Status: Acute Assessment and Plan: * likely multifactorial: * hypoglycemia (suspect the predominant issue) * hypoxia * cardiac event(?) * infection(?) * recent Echo noted * already on anticoagulation (4) Acute and chronic respiratory failure: Code(s): J96.20 - Acute and chronic respiratory failure, unspecified whether with hypoxia or hypercapnia Status: Acute Assessment and Plan: * resolving * several issues/etiologies noted: * cardiac arrest * congestive heart failure * valvular heart disease * pulmonary edema * possible pneumonia * possible aspiration * follow respiratory status closely * empiric antibiotics for pneumonia (CAP versus hospital-acquired versus aspiration) (5) Acute on chronic diastolic heart failure: Code(s): I50.33 - Acute on chronic diastolic (congestive) heart failure Status: Acute Assessment and Plan: * suspected based on CXR findings, exam, and laboratory testing on admssion * complicated by her valvular heart disease as well * was on IV diuretics (although unclear how effective since admission) * follow daily weights, I/Os, and respiratory status - meehan catheter in place for accurate I/Os * based of CXR findings, continue aggressive ultrafiltration/fluid removal as tolerated * not opposed to resuming IV diuretics since stable hemodynamics (6) Anemia: Code(s): D64.9 - Anemia, unspecified Status: Chronic Assessment and Plan: * due to GISELLE, CKD, and acute illness * responded to Epogen therapy on last hospitalization * resumed this with dialysis * follow trend of H/H (7) Diabetes: Qualifiers: Diabetes mellitus type: type 2 Diabetes mellitus senior care insulin use: with drawer in stitch bonding machine use Diabetes mellitus complication status: with other specified complication Qualified Code(s): E11.69 - Type 2 diabetes mellitus with other specified complication; Z79.4 - senior care (current) use of insulin Code(s): E11.9 - Type 2 diabetes mellitus without complications Status: Chronic
--- NOTE | 2021-07-19 12:55 | PM.PNNEP ---
Progress Note: A&P Assessment and Plan (1) GISELLE (acute kidney injury): Code(s): N17.9 - Acute kidney failure, unspecified Status: Acute Assessment and Plan: unclear on etiology on presentation given fairly recent discharge from hospital possibly due to decompensated heart failure again another consideration is just simple kidney disease progression (particularly, with recent/recurrent hospitalizations with GISELLE/ARF) recent cardiac arrest likely resulted in some degree of a hemodynamic insult/ATN as well follow renal function closely but suspect she may now be dialysis dependent given severity of baseline CKD.... minimal urine output noted... HD tomorrow (2) Chronic kidney disease, stage IV (severe): Code(s): N18.4 - Chronic kidney disease, stage 4 (severe) Status: Chronic Assessment and Plan: baseline creatine averages around 2.0 - 2.7mg/dl thought to be secondary to her HTN, DM, cardiac/vascular disease and need for diuretics to maintain her volume status it was felt on last hospitalization that a higher creatinine would have to be accepted to achieve some degree of euvolemia.... her creatinine was running around 3.1 - 3.3mg/dl at that time and on discharge as noted above, given events during this hospitalization, she may be dialysis dependent/ESRD at this time... (3) Cardiac arrest: Code(s): I46.9 - Cardiac arrest, cause unspecified Status: Acute Assessment and Plan: likely multifactorial: hypoglycemia (suspect the predominant issue) hypoxia cardiac event(?) infection(?) recent Echo noted already on anticoagulation (4) Acute and chronic respiratory failure: Code(s): J96.20 - Acute and chronic respiratory failure, unspecified whether with hypoxia or hypercapnia Status: Acute Assessment and Plan: resolving several issues/etiologies noted: cardiac arrest congestive heart failure valvular heart disease pulmonary edema possible pneumonia possible aspiration follow respiratory status closely empiric antibiotics for pneumonia (CAP versus hospital-acquired versus aspiration) (5) Acute on chronic diastolic heart failure: Code(s): I50.33 - Acute on chronic diastolic (congestive) heart failure Status: Acute Assessment and Plan: suspected based on CXR findings, exam, and laboratory testing on admssion complicated by her valvular heart disease as well was on IV diuretics (although unclear how effective since admission) follow daily weights, I/Os, and respiratory status - meehan catheter in place for accurate I/Os based of CXR findings, continue aggressive ultrafiltration/fluid removal as tolerated not opposed to resuming IV diuretics since stable hemodynamics (6) Anemia: Code(s): D64.9 - Anemia, unspecified Status: Chronic Assessment and Plan: due to GISELLE, CKD, and acute illness responded to Epogen therapy on last hospitalization resumed this with dialysis follow trend of H/H (7) Diabetes: Qualifiers: Diabetes mellitus type: type 2 Diabetes mellitus superintendent container terminal insulin use: with superintendent container terminal use Diabetes mellitus complication status: with other specified complication Qualified Code(s): E11.69 - Type 2 diabetes mellitus with other specified complication; Z79.4 - senior care (current) use of insulin Code(s): E11.9 - Type 2 diabetes mellitus without complications Status: Chronic Assessment and Plan: follow accuchecks particularly given issues with hypoglycemia glycemic control Will continue to follow. Subjective Date/time seen: 07/19/21 12:55 Respiratory status seems relatively stable - on 2L by nasal cannula with relative stability in oxygenation; tolerated hemodialysis/DUF treatment yesterday with approximately 5L fluid removal; remains hemodynamically stable without the need for pressor support; mentation continues to improve
--- NOTE | 2021-07-19 13:13 | WPDINTPN ---
Progress Note: A&P Assessment and Plan (1) Cardiac arrest: Code(s): I46.9 - Cardiac arrest, cause unspecified Status: Acute Assessment and Plan: Patient had a cardiac arrest (PEA) on 07/13/2020 which is most likely multifactorial. At that time her blood sugar was less than 20 so hypoglycemia is likely etiology. Patient was also hypoxic with diffuse pulmonary edema. 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 -07/13/2021: CT scan of the chest/abdomen/pelvis showed cardiomegaly, severe patchy consolidating infiltrates throughout both lungs likely reactive hilar or mediastinal lymphadenopathy. Small pleural effusions, anasarca, cholelithiasis, ascites, diverticulosis of left colon, no evidence of diverticulitis, stone line bilateral rib fractures 07/13/2021 echocardiogram showed moderate aortic valve stenosis with aortic valve area of 1.0 cm2, LV systolic function is normal with EF of 60-65%. Grade 2 diastolic dysfunction, moderate aortic valve regurgitation, severe tricuspid valve regurgitation, severe pulmonary hypertension with RVSP of 71 mmHg (2) Acute and chronic respiratory failure: Code(s): J96.20 - Acute and chronic respiratory failure, unspecified whether with hypoxia or hypercapnia Status: Acute Assessment and Plan: Acute Respiratory failure secondary to congestive heart failure, pulmonary edema, cardiac arrest, possible aspiration - 07/13/2021: Patient intubated during code blue for hypoxia -07/17/2021 successfully extubated. Currently on 2 L nasal cannula with O2 2 sats -encourage and assist with incentive spirometry -07/19/2021: Chest x-ray shows diffuse lung disease consistent with pneumonia and/or pulmonary edema -continue Zosyn for aspiration pneumonia (07/13/2021), will add vancomycin (07/15) -07/13/2021 sputum cultures growing rare Gram-positive cocci, growth of normal oropharyngeal jazzmine -07/13/2021 urine cultures-negative -07/13/2021 preliminary blood cultures are negative x2 -Continue bronchodilators -continue Pulmozyme due to thick secretion -patient has received dialysis with good amount of fluid removal (3) Shock: Code(s): R57.9 - Shock, unspecified Status: Acute Assessment and Plan: RESOLVED Multifactorial , likely due to cardiac arrest, possible sepsis, and patient also on multiple antihypertensive medications - patient has significant volume overload - OFF Levophed infusion, -Lactic acid was normal 1.0 -prolactin was 0.2 - empiric antibiotics as above -Cultures as above (4) Edema: Qualifiers: Edema type: localized Qualified Code(s): R60.0 - Localized edema Code(s): R60.9 - Edema, unspecified Status: Acute Assessment and Plan: - patient has diffuse anasarca patient has history of left leg swelling/edema significant more edema than right. -07/06/2021: Venous Dopplers showed DVT involving right peroneal veins -07/08/2021: V/Q scan showed intermediate probability for pulmonary embolism -patient remains on Eliquis -07/13/2021: Right IJ dialysis catheter was inserted, dialysis started on 07/14/2021 per Nephrology -edema is improving after removal of fluid with dialysis (5) CKD (chronic kidney disease): Qualifiers: Chronic kidney disease stage: unspecified stage Qualified Code(s): N18.9 - Chronic kidney disease, unspecified Code(s): N18.9 - Chronic kidney disease, unspecified
[2021-07-19 14:37] LABS: Glucose Point of Care 289 mg/dl (65-105)
[2021-07-19] MEDS: hydrALAZINE HCL 20 MG/ML VIAL 10 MG IV PUSH (16:49)
[2021-07-19 18:30] LABS: Glucose Point of Care 209 mg/dl (65-105)
[2021-07-19] MEDS: ATORVASTATIN 40 MG TABLET PO (18:45)
[2021-07-19] MEDS: carvediloL 6.25 MG TABLET PO (21:02)
[2021-07-19] MEDS: HEPARIN SODIUM 5,000 UNITS/ML VIAL 5000 UNITS SUB-Q (21:03)
[2021-07-19 23:26] LABS: Glucose Point of Care 128 mg/dl (65-105)
[2021-07-20] VITALS (38 sets, daily range): BP systolic 116–172; BP diastolic 49–73; PULSE 71–90; RESP 18–27; TEMP 36–38.1; O2SAT 94–100
[2021-07-20] MEDS: IPRATROPIUM BR 0.02% INH SOLN 0.5 MG/2.5 ML VIAL INHALATION (02:20)
[2021-07-20] MEDS: ALBUTEROL SULFATE NEB 2.5 MG/0.5 ML INH INHALATION (02:20)
[2021-07-20 04:41] LABS: Basophils Absolute Auto 0.1 K/mm3 (0.0-0.1); Basophils Percent Auto 0.6 % (0.2-1.2); Eosinophils Absolute Auto 0.5 K/mm3 (0-0.3); Hematocrit 28.1 % (37.0-47.0); Hemoglobin 8.7 g/dL (12.0-15.0); Immature Granulocyte Absolute 0.26 K/mm3 (0.00-0.031); Immature Granulocyte Percent A 1.5 % (0-0.5); Lymphocytes Absolute Auto 1.22 K/mm3 (0.9-3.2); Mean Corpuscular Volume 103.3 fl (80-100); Mean Platelet Volume 11.4 fl (7.4-10.4); Monocytes Percent Auto 11.5 % (2.6-8.5); Neutrophils Absolute Auto 13.3 K/mm3 (1.3-6.7); Neutrophils Percent Auto 76.4 % (45.5-73.1); Nucleated Red Blood Cells Perc 0.1 % (0.0-0.2); Platelet Count Result 159 k/mm3 (150-375); Red Blood Count 2.72 M/mm3 (4.2-5.4); Red Cell Distribution Width 20.2 % (11.5-14.5); White Blood Count 17.4 K/mm3 (4.5-10.0)
[2021-07-20 04:56] LABS: Alanine Aminotransferase 18 U/L (6-35); Albumin Level 3.3 g/dL (3.5-5.1); Alkaline Phosphatase 97 U/L (38-126); Anion Gap 9 mmol/L (8-16); Aspartate Amino Transferase 25 U/L (14-36); Bilirubin,Total 1.1 mg/dL (0.2-1.3); Blood Urea Nitrogen 45 mg/dL (7-17); Calcium 8.6 mg/dL (8.4-10.2); Carbon Dioxide 29 mmol/L (22-30); Chloride 97 mmol/L (98-107); Estimated CRCL calculation 14 ml/min; Estimated Glomerular Filt Rate 15; Glucose 243 mg/dL (65-110); Magnesium 2.1 mg/dL (1.6-2.3); Phosphorus 3.2 mg/dL (2.5-4.5); Potassium 3.6 mmol/L (3.4-5.0); Sodium 135 mmol/L (137-145)
[2021-07-20 05:29] LABS: Vancomycin Random 13.9 ug/mL (10-20)
[2021-07-20] MEDS: INSULIN ASPART (*BKC) 100 UNITS/ML SUB-Q ×4 (06:08→20:38)
[2021-07-20] MEDS: TOLNAFTATE 1% POWDER 45 GM BTL 1 APPLIC TOPICAL ×3 (06:09→20:41)
[2021-07-20] MEDS: CENTRAL LINE FLUSH 10 ML IV PUSH ×3 (06:09→20:41)
--- NOTE | 2021-07-20 07:12 | P.PNNP_ITS ---
Progress Note: A&P Assessment and Plan (1) GISELLE (acute kidney injury): Code(s): N17.9 - Acute kidney failure, unspecified Status: Acute Assessment and Plan: * acute kidney injury * kidneys looked okay on recent CT abdomen. * Urine electrolytes non pre renal but she was on diuretics. * Moderate amount of urine protein, not enough to cause nephrotic syndrome. * CPK was normal. * unclear on etiology on presentation given fairly recent discharge from hospital * possibly due to decompensated heart failure again leading to pre renal azotemia and probably renal venous hypertension due to her tricuspid regurgitation. * another consideration is just simple kidney disease progression (particularly, with recent/recurrent hospitalizations with GISELLE/ARF). Consult elevated angiotensin levels (Due to cardiac disease) can lead to fibrosis. * recent cardiac arrest likely resulted in some degree of a hemodynamic insult/ATN as well * follow renal function closely but suspect she may now be dialysis dependent given severity of baseline CKD. * hemodialysis later today. * Consider PermCath later this week. (2) Chronic kidney disease, stage IV (severe): Code(s): N18.4 - Chronic kidney disease, stage 4 (severe) Status: Chronic Assessment and Plan: * baseline creatine averages around 2.0 - 2.7mg/dl * thought to be secondary to her HTN, DM, cardiac/vascular disease and need for diuretics to maintain her volume status * it was felt on last hospitalization that a higher creatinine would have to be accepted to achieve some degree of euvolemia. * Now with minimal amounts of urine, will continue dialysis. (3) Cardiac arrest: Code(s): I46.9 - Cardiac arrest, cause unspecified Status: Acute Assessment and Plan: * likely multifactorial: * hypoglycemia (suspect the predominant issue) * hypoxia * cardiac event(?) * infection(?) * recent Echo noted * already on anticoagulation (4) Acute and chronic respiratory failure: Code(s): J96.20 - Acute and chronic respiratory failure, unspecified whether with hypoxia or hypercapnia Status: Acute Assessment and Plan: * resolving * several issues/etiologies noted: * cardiac arrest . Recovering. * congestive heart failure . Removing fluid with dialysis. * valvular heart disease * pulmonary edema . Attempted volume control. Blood pressure may limit this ultimately. * possible pneumonia * possible aspiration . Now NPO and has Dobbhoff tube feedings. * follow respiratory status closely * empiric antibiotics for pneumonia (CAP versus hospital-acquired versus aspiration) (5) Acute on chronic diastolic heart failure: Code(s): I50.33 - Acute on chronic diastolic (congestive) heart failure Status: Acute Assessment and Plan: * Volume control with dialysis. (6) Anemia: Code(s): D64.9 - Anemia, unspecified Status: Chronic Assessment and Plan: * due to GISELLE, CKD, and acute illness * She is getting Epogen therapy. * No need for iron right now because of active infection. (7) Diabetes: Qualifiers: Diabetes mellitus type: type 2 Diabetes mellitus half-way insulin use: with half-way use Diabetes mellitus complication status: with other specified complication Qualified Code(s): E11.69 - Type 2 diabetes mellitus with other specified complication; Z79.4 - detention (current) use of insulin Code(s): E11.9 - Type 2 diabetes mellitus withou
--- NOTE | 2021-07-20 07:12 | PM.PNNEP ---
Progress Note: A&P Assessment and Plan (1) GISELLE (acute kidney injury): Code(s): N17.9 - Acute kidney failure, unspecified Status: Acute Assessment and Plan: acute kidney injury kidneys looked okay on recent CT abdomen. Urine electrolytes non pre renal but she was on diuretics. Moderate amount of urine protein, not enough to cause nephrotic syndrome. CPK was normal. unclear on etiology on presentation given fairly recent discharge from hospital possibly due to decompensated heart failure again leading to pre renal azotemia and probably renal venous hypertension due to her tricuspid regurgitation. another consideration is just simple kidney disease progression (particularly, with recent/recurrent hospitalizations with GISELLE/ARF). Consult elevated angiotensin levels (Due to cardiac disease) can lead to fibrosis. recent cardiac arrest likely resulted in some degree of a hemodynamic insult/ATN as well follow renal function closely but suspect she may now be dialysis dependent given severity of baseline CKD. hemodialysis later today. Consider PermCath later this week. (2) Chronic kidney disease, stage IV (severe): Code(s): N18.4 - Chronic kidney disease, stage 4 (severe) Status: Chronic Assessment and Plan: baseline creatine averages around 2.0 - 2.7mg/dl thought to be secondary to her HTN, DM, cardiac/vascular disease and need for diuretics to maintain her volume status it was felt on last hospitalization that a higher creatinine would have to be accepted to achieve some degree of euvolemia. Now with minimal amounts of urine, will continue dialysis. (3) Cardiac arrest: Code(s): I46.9 - Cardiac arrest, cause unspecified Status: Acute Assessment and Plan: likely multifactorial: hypoglycemia (suspect the predominant issue) hypoxia cardiac event(?) infection(?) recent Echo noted already on anticoagulation (4) Acute and chronic respiratory failure: Code(s): J96.20 - Acute and chronic respiratory failure, unspecified whether with hypoxia or hypercapnia Status: Acute Assessment and Plan: resolving several issues/etiologies noted: cardiac arrest . Recovering. congestive heart failure . Removing fluid with dialysis. valvular heart disease pulmonary edema . Attempted volume control. Blood pressure may limit this ultimately. possible pneumonia possible aspiration . Now NPO and has Dobbhoff tube feedings. follow respiratory status closely empiric antibiotics for pneumonia (CAP versus hospital-acquired versus aspiration) (5) Acute on chronic diastolic heart failure: Code(s): I50.33 - Acute on chronic diastolic (congestive) heart failure Status: Acute Assessment and Plan: Volume control with dialysis. (6) Anemia: Code(s): D64.9 - Anemia, unspecified Status: Chronic Assessment and Plan: due to GISELLE, CKD, and acute illness She is getting Epogen therapy. No need for iron right now because of active infection. (7) Diabetes: Qualifiers: Diabetes mellitus type: type 2 Diabetes mellitus senior care insulin use: with senior care use Diabetes mellitus complication status: with other specified complication Qualified Code(s): E11.69 - Type 2 diabetes mellitus with other specified complication; Z79.4 - terminal operations manager (current) use of insulin Code(s): E11.9 - Type 2 diabetes mellitus without complications Status: Chronic Assessment and Plan: On Accu-Cheks and sliding-scale insulin. Hospitalist managing this. Subjective Date/time seen: 07/20/21 07:12 Interval history: Patient is awake. She is in the ICU. she has a Dobbhoff tube and is getting tube feedings. She denies chest pain or shortness of breath. Exam Narrative: General: somewhat ill appearing female in NAD Heart: normal S1 and S2; no rub
[2021-07-20 07:16] LABS: Glucose Point of Care 284 mg/dl (65-105)
[2021-07-20] MEDS: SODIUM CHLORIDE 0.9% IV 1,000 ML 100 ML IV CONT (07:46)
[2021-07-20] MEDS: INSULIN GLARGINE (*BKC) 100 UNITS/ML 10 UNITS SUB-Q (07:48)
[2021-07-20] MEDS: CHOLECALCIFEROL 1,000 UNITS TABLET 5000 UNITS PO (07:50)
[2021-07-20] MEDS: PANTOPRAZOLE SODIUM IV 40 MG VIAL IV PUSH ×2 (07:51→20:40)
[2021-07-20] MEDS: MULTIVITAMINS THERAPEUTIC TAB (*BKC) 1 TABLET PO (07:51)
[2021-07-20] MEDS: carvediloL 6.25 MG TABLET PO ×2 (07:51→20:40)
[2021-07-20] MEDS: HEPARIN SODIUM 5,000 UNITS/ML VIAL 5000 UNITS SUB-Q (07:51)
[2021-07-20] MEDS: EPOETIN ALFA-EPBX 10,000 UNITS/ML VIAL 10000 UNITS IV PUSH (08:17)
--- NOTE | 2021-07-20 11:06 | PCOTNOTE ---
Attempted to see patient this am, however patient having dialysis at this time.
--- NOTE | 2021-07-20 11:23 | PCFNICU ---
ICU Rounding Note: Pt current nutrition is Nepro at 40 ml/hr over 22 hours Last recorded weight is 62.5 kg, down from 72.8 kg on admit. Bowel Motility:+BM reported 07/20 Labs Reviewed:Na 135, Alb 3.3,Hgb 8.7,Hct 28.1,Cr 3.0,Glu 243, BUN 45 Meds Noted: Eliquis, MVI,Zofran, Zosyn, NovoLog, Lantus, Vit D, Protonix Skin: Maceration-groin, buttock Additional Notes: Patient extubated on 07/17. Patient has MBS on 07/18 recommending non oral feedings. NGT feedings of Nepro at 40 ml/hr over 22 hours, tolerating per nursing. Dialysis today. Speech therapy continue to treat. Agree with diet orders. Following daily in ICU rounds. Will reassess every Tuesday and Tuesday.
--- NOTE | 2021-07-20 11:58 | WPDINTPN ---
Progress Note: A&P Assessment and Plan (1) Cardiac arrest: Code(s): I46.9 - Cardiac arrest, cause unspecified Status: Acute Assessment and Plan: Patient had a cardiac arrest (PEA) on 07/13/2020 which is most likely multifactorial. At that time her blood sugar was less than 20 so hypoglycemia is likely etiology. Patient was also hypoxic with diffuse pulmonary edema. -DVT involving right peroneal veins (07/06/2021, intermediate probability of PE on V/Q scan done on 07/08/2021 -repeat venous Dopplers of the lower extremity on 07/14/2021: No lower extremity DVT Discussed with Dr. Meza, will start Eliquis at 2.5 mg q.12 hours, monitor her hemoglobin levels and may increase to 5 mg q.12 hours in the next couple of days if there is no bleeding and or her hemoglobin remained stable. 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 -07/13/2021: CT scan of the chest/abdomen/pelvis showed cardiomegaly, severe patchy consolidating infiltrates throughout both lungs likely reactive hilar or mediastinal lymphadenopathy. Small pleural effusions, anasarca, cholelithiasis, ascites, diverticulosis of left colon, no evidence of diverticulitis, stone line bilateral rib fractures 07/13/2021 echocardiogram showed moderate aortic valve stenosis with aortic valve area of 1.0 cm2, LV systolic function is normal with EF of 60-65%. Grade 2 diastolic dysfunction, moderate aortic valve regurgitation, severe tricuspid valve regurgitation, severe pulmonary hypertension with RVSP of 71 mmHg (2) Acute and chronic respiratory failure: Code(s): J96.20 - Acute and chronic respiratory failure, unspecified whether with hypoxia or hypercapnia Status: Acute Assessment and Plan: Acute Respiratory failure secondary to congestive heart failure, pulmonary edema, cardiac arrest, possible aspiration - 07/13/2021: Patient intubated during code blue for hypoxia -07/17/2021 successfully extubated. Currently on 2 L nasal cannula with O2 2 sats -encourage and assist with incentive spirometry -07/20/2021: Chest x-ray shows Diffuse lung disease with improvement at right lung base, consistent with pneumonia versus pulmonary edema superimposed on chronic interstitial lung disease -continue Zosyn for aspiration pneumonia (07/13/2021), vancomycin (07/15) -07/13/2021 sputum cultures growing rare Gram-positive cocci, growth of normal oropharyngeal jazzmine -07/13/2021 urine cultures-negative -07/13/2021 preliminary blood cultures are negative x2 -Continue bronchodilators -continue Pulmozyme due to thick secretion -patient has received dialysis with good amount of fluid removal (3) Shock: Code(s): R57.9 - Shock, unspecified Status: Acute Assessment and Plan: RESOLVED Multifactorial , likely due to cardiac arrest, possible sepsis, and patient also on multiple antihypertensive medications - patient has significant volume overload - OFF Levophed infusion, -Lactic acid was normal 1.0 -prolactin was 0.2 - empiric antibiotics as above -Cultures as above (4) Edema: Qualifiers: Edema type: localized Qualified Code(s): R60.0 - Localized edema Code(s): R60.9 - Edema, unspecified Status: Acute Assessment and Plan: - patient has diffuse anasarca patient has history of left leg swelling/edema significant more edema than right. -07/06/2021: Venous Dopplers showed DVT involving right peroneal veins -07/08/2021: V/Q scan showed intermediate probability for pulmonary embolism -patient remains on Eliquis -07/13/2021: Right IJ dialysis catheter was inserted, dialysis started on 07/14/2021 per Nephrology -edema is improving after removal of fluid
--- NOTE | 2021-07-20 12:06 | PM.IMPN ---
Progress Note: A&P Assessment and Plan (1) Cardiac arrest: Code(s): I46.9 - Cardiac arrest, cause unspecified Status: Acute Assessment and Plan: Patient had a cardiac arrest (PEA) on 07/13/2020 which is most likely multifactorial. At that time her blood sugar was less than 20 so hypoglycemia is likely etiology. Patient was also hypoxic with diffuse pulmonary edema. (2) Acute and chronic respiratory failure: Code(s): J96.20 - Acute and chronic respiratory failure, unspecified whether with hypoxia or hypercapnia Status: Acute Assessment and Plan: Acute Respiratory failure secondary to congestive heart failure, pulmonary edema, cardiac arrest, possible aspiration -continue hemodialysis -continue antibiotics, vanc and cefepime (3) Shock: Code(s): R57.9 - Shock, unspecified Status: Acute Assessment and Plan: Resolved (4) Edema: Qualifiers: Edema type: localized Qualified Code(s): R60.0 - Localized edema Code(s): R60.9 - Edema, unspecified Status: Acute Assessment and Plan: - patient has diffuse anasarca Multifactorial with volume overload and end-stage renal disease and heart failure. Continue medical management and also hemodialysis (5) CKD (chronic kidney disease): Qualifiers: Chronic kidney disease stage: unspecified stage Qualified Code(s): N18.9 - Chronic kidney disease, unspecified Code(s): N18.9 - Chronic kidney disease, unspecified Status: Acute Assessment and Plan: end-stage renal disease -dialysis per Nephrology (6) Volume overload: Code(s): E87.70 - Fluid overload, unspecified Status: Acute Assessment and Plan: see above (7) Congestive heart failure: Qualifiers: Heart failure type: diastolic Heart failure chronicity: acute on chronic Qualified Code(s): I50.33 - Acute on chronic diastolic (congestive) heart failure Code(s): I50.9 - Heart failure, unspecified Status: Acute Assessment and Plan: Continue medical management (8) Type 2 diabetes mellitus with hyperglycemia: Code(s): E11.65 - Type 2 diabetes mellitus with hyperglycemia Status: Acute Assessment and Plan: Acute checks with sliding scale insulin and Lantus (9) Hypoglycemia: Code(s): E16.2 - Hypoglycemia, unspecified Status: Acute Assessment and Plan: Resolved (10) Anemia: Code(s): D64.9 - Anemia, unspecified Status: Chronic Assessment and Plan: Monitor (11) Leukocytosis: Code(s): D72.829 - Elevated white blood cell count, unspecified Status: Acute Assessment and Plan: Monitor labs. Currently on antibiotics (12) DVT (deep venous thrombosis): Code(s): I82.409 - Acute embolism and thrombosis of unspecified deep veins of unspecified lower extremity Status: Acute Assessment and Plan: Initial lower extremity Doppler positive for protein or DVT Anticoagulation was started however patient has a significant drop in hemoglobin so anticoagulation was held. Now believed to be stable however repeat Doppler which did not show DVT. Will start on low-dose Eliquis and see how the patient does (13) Pulmonary emboli: Code(s): I26.99 - Other pulmonary embolism without acute cor pulmonale Status: Acute Assessment and Plan: Intermediate probability on V/Q scan. Low-dose Eliquis. If she tolerates consider increasing to normal dose Eliquis Subjective Date/time seen: 07/20/21 12:06 Doing better clinically. Extubated. Tolerating hemodialysis Exam Narrative: General: Frail and ill looking female in no acute distress Lungs/Chest: Coarse breath sounds bilaterally, no wheezing, decreased air entry at bases Cardiac: RRR. Normal S1 S2. No murmurs Abdomen: Hypoactive bowel sounds.Soft. NT. ND. Extremities: bilateral pitting edema in all 4 extremities is
[2021-07-20 12:21] LABS: Glucose Point of Care 136 mg/dl (65-105)
--- NOTE | 2021-07-20 14:20 | PCPTNOTE ---
The patient treatment was not able to be completed today. RN reports patient just completed dialysis, is resting and would would not be able to participate at this time. Will plan to continue treatment per plan of care.
[2021-07-20 15:34] LABS: Glucose Point of Care 203 mg/dl (65-105)
[2021-07-20] MEDS: hydrALAZINE HCL 20 MG/ML VIAL 10 MG IV PUSH (18:01)
[2021-07-20] MEDS: ATORVASTATIN 40 MG TABLET PO (19:07)
[2021-07-20 20:36] LABS: Glucose Point of Care 253 mg/dl (65-105)
[2021-07-20] MEDS: APIXABAN 2.5 MG TABLET PO (20:50)
--- NOTE | 2021-07-20 21:17 | PC.NURSE ---
2019 Dr. Perea informed of multiple loose stools. Orders received for FMS
[2021-07-21] VITALS (29 sets, daily range): BP systolic 110–161; BP diastolic 45–67; PULSE 65–85; RESP 15–24; TEMP 0–37.4; O2SAT 95–100
[2021-07-21 00:33] LABS: Glucose Point of Care 184 mg/dl (65-105)
[2021-07-21] MEDS: CENTRAL LINE FLUSH 10 ML IV PUSH ×3 (05:06→20:24)
[2021-07-21] MEDS: TOLNAFTATE 1% POWDER 45 GM BTL 1 APPLIC TOPICAL ×3 (05:06→20:25)
[2021-07-21 05:17] LABS: Basophils Absolute Auto 0.1 K/mm3 (0.0-0.1); Basophils Percent Auto 0.6 % (0.2-1.2); Eosinophils Absolute Auto 0.2 K/mm3 (0-0.3); Eosinophils Percent Auto 0.9 % (0-4.4); Hematocrit 30.6 % (37.0-47.0); Hemoglobin 9.3 g/dL (12.0-15.0); Immature Granulocyte Absolute 0.23 K/mm3 (0.00-0.031); Immature Granulocyte Percent A 1.5 % (0-0.5); Lymphocytes Absolute Auto 1.23 K/mm3 (0.9-3.2); Lymphocytes Percent Auto 7.8 % (18.3-44.2); Mean Corpuscular HGB Conc 30.4 g/dl (32-36); Mean Corpuscular Hemoglobin 31.7 pg (26-34); Mean Corpuscular Volume 104.4 fl (80-100); Monocytes Absolute Auto 1.7 K/mm3 (0.1-0.6); Monocytes Percent Auto 10.5 % (2.6-8.5); Neutrophils Absolute Auto 12.4 K/mm3 (1.3-6.7); Neutrophils Percent Auto 78.7 % (45.5-73.1); Nucleated Red Blood Cells Perc 0.3 % (0.0-0.2); Platelet Count Result 164 k/mm3 (150-375); Red Blood Count 2.93 M/mm3 (4.2-5.4); Red Cell Distribution Width 21.2 % (11.5-14.5); White Blood Count 15.8 K/mm3 (4.5-10.0)
[2021-07-21 05:31] LABS: Alanine Aminotransferase 15 U/L (6-35); Albumin Level 3.3 g/dL (3.5-5.1); Alkaline Phosphatase 106 U/L (38-126); Anion Gap 7 mmol/L (8-16); Aspartate Amino Transferase 21 U/L (14-36); Bilirubin,Total 0.9 mg/dL (0.2-1.3); Blood Urea Nitrogen 35 mg/dL (7-17); Calcium 8.6 mg/dL (8.4-10.2); Carbon Dioxide 27 mmol/L (22-30); Chloride 100 mmol/L (98-107); Estimated CRCL calculation 16 ml/min; Estimated Glomerular Filt Rate 21; Glucose 367 mg/dL (65-110); Magnesium 2.2 mg/dL (1.6-2.3); Phosphorus 3.2 mg/dL (2.5-4.5); Potassium 4.2 mmol/L (3.4-5.0); Sodium 134 mmol/L (137-145)
[2021-07-21] MEDS: INSULIN ASPART (*BKC) 100 UNITS/ML SUB-Q ×3 (05:44→12:16)
[2021-07-21 07:16] LABS: Glucose Point of Care 370 mg/dl (65-105)
--- NOTE | 2021-07-21 08:18 | P.PNNP_ITS ---
Progress Note: A&P Assessment and Plan (1) GISELLE (acute kidney injury): Code(s): N17.9 - Acute kidney failure, unspecified Status: Acute Assessment and Plan: * acute kidney injury * kidneys looked okay on recent CT abdomen. * Urine electrolytes non pre renal but she was on diuretics. * Moderate amount of urine protein, not enough to cause nephrotic syndrome. * CPK was normal. * Still not making urine. * Most likely severe pre renal azotemia due to bad heart/valves * Will do another round of dialysis today. (2) Chronic kidney disease, stage IV (severe): Code(s): N18.4 - Chronic kidney disease, stage 4 (severe) Status: Chronic Assessment and Plan: * baseline creatine averages around 2.0 - 2.7mg/dl * thought to be secondary to her HTN, DM, cardiac/vascular disease and need for diuretics to maintain her volume status * it was felt on last hospitalization that a higher creatinine would have to be accepted to achieve some degree of euvolemia. * Now with minimal amounts of urine, will continue dialysis. * Will perform dry ultrafiltration today to continue to work on getting fluid off. (3) Cardiac arrest: Code(s): I46.9 - Cardiac arrest, cause unspecified Status: Acute Assessment and Plan: * likely multifactorial: * hypoglycemia (suspect the predominant issue) * hypoxia * cardiac event(?) * infection(?) * recent Echo noted * already on anticoagulation (4) Acute and chronic respiratory failure: Code(s): J96.20 - Acute and chronic respiratory failure, unspecified whether with hypoxia or hypercapnia Status: Acute Assessment and Plan: * resolving * Now on 2L of oxygen. (5) Acute on chronic diastolic heart failure: Code(s): I50.33 - Acute on chronic diastolic (congestive) heart failure Status: Acute Assessment and Plan: * Volume control with dialysis. * Still not making very much urine at all. (6) Anemia: Code(s): D64.9 - Anemia, unspecified Status: Chronic Assessment and Plan: * due to GISELLE, CKD, and acute illness * She is getting Epogen therapy. * No need for iron right now because of active infection. 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 * Hospitalist managing this. Subjective Date/time seen: 07/21/21 08:18 Interval history: Patient is awake. She is in the ICU. She denies shortness of breath. Tolerating her tube feedings. She is on Nepro at40cc an hour. Exam Narrative: General: somewhat ill appearing female in NAD Heart: normal S1 and S2; no rub or gallop Lungs: coarse breath sounds with coarse upper airway noise, and decreased at bases Abdomen: soft, nontender, decreased bowel sounds Extremities: no cyanosis or clubbing; 1-2+ edema bilaterally Skin: multiple ecchymoses present. No rash. Objective Data Vital Signs Vital Signs: Vital Signs - 24 hr 07/20/21 08:30 07/20/21 08:45 07/20/21
--- NOTE | 2021-07-21 08:18 | PM.PNNEP ---
Progress Note: A&P Assessment and Plan (1) GISELLE (acute kidney injury): Code(s): N17.9 - Acute kidney failure, unspecified Status: Acute Assessment and Plan: acute kidney injury kidneys looked okay on recent CT abdomen. Urine electrolytes non pre renal but she was on diuretics. Moderate amount of urine protein, not enough to cause nephrotic syndrome. CPK was normal. Still not making urine. Most likely severe pre renal azotemia due to bad heart/valves Will do another round of dialysis today. (2) Chronic kidney disease, stage IV (severe): Code(s): N18.4 - Chronic kidney disease, stage 4 (severe) Status: Chronic Assessment and Plan: baseline creatine averages around 2.0 - 2.7mg/dl thought to be secondary to her HTN, DM, cardiac/vascular disease and need for diuretics to maintain her volume status it was felt on last hospitalization that a higher creatinine would have to be accepted to achieve some degree of euvolemia. Now with minimal amounts of urine, will continue dialysis. Will perform dry ultrafiltration today to continue to work on getting fluid off. (3) Cardiac arrest: Code(s): I46.9 - Cardiac arrest, cause unspecified Status: Acute Assessment and Plan: likely multifactorial: hypoglycemia (suspect the predominant issue) hypoxia cardiac event(?) infection(?) recent Echo noted already on anticoagulation (4) Acute and chronic respiratory failure: Code(s): J96.20 - Acute and chronic respiratory failure, unspecified whether with hypoxia or hypercapnia Status: Acute Assessment and Plan: resolving Now on 2L of oxygen. (5) Acute on chronic diastolic heart failure: Code(s): I50.33 - Acute on chronic diastolic (congestive) heart failure Status: Acute Assessment and Plan: Volume control with dialysis. Still not making very much urine at all. (6) Anemia: Code(s): D64.9 - Anemia, unspecified Status: Chronic Assessment and Plan: due to GISELLE, CKD, and acute illness She is getting Epogen therapy. No need for iron right now because of active infection. 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 Hospitalist managing this. Subjective Date/time seen: 07/21/21 08:18 Interval history: Patient is awake. She is in the ICU. She denies shortness of breath. Tolerating her tube feedings. She is on Nepro at40cc an hour. Exam Narrative: General: somewhat ill appearing female in NAD Heart: normal S1 and S2; no rub or gallop Lungs: coarse breath sounds with coarse upper airway noise, and decreased at bases Abdomen: soft, nontender, decreased bowel sounds Extremities: no cyanosis or clubbing; 1-2+ edema bilaterally Skin: multiple ecchymoses present. No rash. Objective Data Vital Signs Vital Signs: Vital Signs - 24 hr 07/20/21 08:30 07/20/21 08:45 07/20/21 09:00 Temperature Pulse Rate 81 78 77 Respiratory Rate Blood Pressure 154/60 H 153/58 H 144/60 H Pulse Oximetry Oxygen Delivery Oxygen Flow Rate 07/20/21 09:15 07/20/21 09:30 07/20/21 09:45 Temperature Pulse Rate 76 74 72 Respiratory Rate Blood Pressure 133/59 L 127/61 141/59 H Pulse Oximetry Oxygen Delivery Oxygen Flow Rate 07/20/21 10:00 07/20/21 10:15 07/20/21 10:30 Temperature Pulse Rate 73 71 73 Respiratory Rate Blood Pressure 136/57 L 136/58 L 132/62 Pulse Oximetry
--- NOTE | 2021-07-21 09:07 | PC.NURSE ---
0900-HEMODIALYSIS IN PROGRESS.
--- NOTE | 2021-07-21 09:28 | PCOTNOTE ---
Patient in dialysis. Will continue OT plan of care.
[2021-07-21] MEDS: INSULIN GLARGINE (*BKC) 100 UNITS/ML 10 UNITS SUB-Q (09:41)
--- NOTE | 2021-07-21 10:43 | PCSTNOTE ---
Speech therapy attempted to see this patient at 10:30 AM on this date for therapy to target swallowing deficits. Patient was in dialysis and unable to participate in skilled therapy.
--- NOTE | 2021-07-21 12:02 | PCNFU ---
Nutrition Follow-Up Complete: Inadequate Oral Intake as related to mechanical ventilation as evidenced by tube feedings. Goal: Meet estimated nutritional needs. Patient continues with current goal. Pt current nutrition is Nepro at 40 ml/hr over 22 hours. Last recorded weight is 56.5 kg, down from 72.8 kg on admit. Bowel Motility:+Bm reported 07/21-FMS Labs Reviewed:Glu 367,BUN 35, GFR 21, Cr 2.3, Na 134, Hct 30.6,Hgb 9.3 Meds Noted:Eliquis, MVI,Zofran, Zosyn, NovoLog, Lantus, Vit D, Protonix Skin: Maceration-buttock/groin. Edema noted. Additional Notes: Patient remains on NGT feedings of Nepro at 40 ml/hr over 22 hours. Current tube feeding is providing 1584 kcals/71 gms protein/640 ml water. Meeting 100% caloric/protein needs. Free water flush 30 ml q 4 hours. Nursing reporting loose stools and FMS. Spoke with MD today, recommending Banatrol Plus TID for stool bulking. Agree with diet orders. Will reassess every Tuesday and Tuesday.
[2021-07-21] MEDS: carvediloL 6.25 MG TABLET PO ×2 (12:12→20:24)
[2021-07-21] MEDS: MULTIVITAMINS THERAPEUTIC TAB (*BKC) 1 TABLET PO (12:12)
[2021-07-21] MEDS: APIXABAN 2.5 MG TABLET PO ×2 (12:13→20:24)
[2021-07-21] MEDS: PANTOPRAZOLE SODIUM IV 40 MG VIAL IV PUSH ×2 (12:13→20:24)
[2021-07-21] MEDS: CHOLECALCIFEROL 1,000 UNITS TABLET 5000 UNITS PO (12:13)
[2021-07-21 12:15] LABS: Glucose Point of Care 220 mg/dl (65-105)
--- NOTE | 2021-07-21 12:27 | PM.IMPN ---
Progress Note: A&P Assessment and Plan (1) Cardiac arrest: Code(s): I46.9 - Cardiac arrest, cause unspecified Status: Acute Assessment and Plan: Patient had a cardiac arrest (PEA) on 07/13/2020 which is most likely multifactorial. At that time her blood sugar was less than 20 so hypoglycemia is likely etiology. Patient was also hypoxic with diffuse pulmonary edema. (2) Acute and chronic respiratory failure: Code(s): J96.20 - Acute and chronic respiratory failure, unspecified whether with hypoxia or hypercapnia Status: Acute Assessment and Plan: Acute Respiratory failure secondary to congestive heart failure, pulmonary edema, cardiac arrest, possible aspiration -continue hemodialysis -continue antibiotics, vanc and Zosyn -little concerned for worsening renal function with this regimen S patient likely has end-stage renal disease and is on hemodialysis. (3) Shock: Code(s): R57.9 - Shock, unspecified Status: Acute Assessment and Plan: Resolved (4) Edema: Qualifiers: Edema type: localized Qualified Code(s): R60.0 - Localized edema Code(s): R60.9 - Edema, unspecified Status: Acute Assessment and Plan: - patient has diffuse anasarca Multifactorial with volume overload and end-stage renal disease and heart failure. Continue medical management and also hemodialysis (5) CKD (chronic kidney disease): Qualifiers: Chronic kidney disease stage: unspecified stage Qualified Code(s): N18.9 - Chronic kidney disease, unspecified Code(s): N18.9 - Chronic kidney disease, unspecified Status: Acute Assessment and Plan: end-stage renal disease -dialysis per Nephrology -volume status much improved (6) Volume overload: Code(s): E87.70 - Fluid overload, unspecified Status: Acute Assessment and Plan: Volume status much improved with hemodialysis (7) Congestive heart failure: Qualifiers: Heart failure type: diastolic Heart failure chronicity: acute on chronic Qualified Code(s): I50.33 - Acute on chronic diastolic (congestive) heart failure Code(s): I50.9 - Heart failure, unspecified Status: Acute Assessment and Plan: Continue medical management (8) Type 2 diabetes mellitus with hyperglycemia: Code(s): E11.65 - Type 2 diabetes mellitus with hyperglycemia Status: Acute Assessment and Plan: Acute checks with sliding scale insulin and Lantus (9) Hypoglycemia: Code(s): E16.2 - Hypoglycemia, unspecified Status: Acute Assessment and Plan: Resolved (10) Anemia: Code(s): D64.9 - Anemia, unspecified Status: Chronic Assessment and Plan: Monitor (11) Leukocytosis: Code(s): D72.829 - Elevated white blood cell count, unspecified Status: Acute Assessment and Plan: Monitor labs. Currently on antibiotics (12) DVT (deep venous thrombosis): Code(s): I82.409 - Acute embolism and thrombosis of unspecified deep veins of unspecified lower extremity Status: Acute Assessment and Plan: Initial lower extremity Doppler positive for protein or DVT Anticoagulation was started however patient has a significant drop in hemoglobin so anticoagulation was held. Now believed to be stable however repeat Doppler which did not show DVT. Will start on low-dose Eliquis and see how the patient does -consider for increasing to standard Eliquis dosing (13) Pulmonary emboli: Code(s): I26.99 - Other pulmonary embolism without acute cor pulmonale Status: Acute Assessment and Plan: Intermediate probability on V/Q scan. Low-dose Eliquis. If she tolerates consider increasing to normal dose Eliquis Subjective Date/time seen: 07/21/21 12:27 The patient is breathing on her own. Significant volume has been removed via dialysis. Overall patient's condition is improving Objecti
--- NOTE | 2021-07-21 12:28 | PC.NURSE ---
Spoke with Dr. Guerra regarding pharmacist's recommendation on dosage of Zosyn. Dr. Guerra ok with switching Zosyn dose to what the pharmacist recommends. Also clarified if patient was to get Epoetin since she received a dose yesterday with dialysis treatment. New order to not give Epoetin today
--- NOTE | 2021-07-21 14:21 | PCPTNOTE ---
The patient treatment was not able to be completed due to the pt just getting back from dialysis and wasn't able to stay awake. Will plan to continue treatment per plan of care.
[2021-07-21 16:01] LABS: Glucose Point of Care 118 mg/dl (65-105)
[2021-07-21] MEDS: ATORVASTATIN 40 MG TABLET PO (17:33)
[2021-07-21 20:17] LABS: Glucose Point of Care 123 mg/dl (65-105)
[2021-07-21 23:27] LABS: Glucose Point of Care 186 mg/dl (65-105)
[2021-07-22] VITALS (17 sets, daily range): BP systolic 110–140; BP diastolic 42–54; PULSE 69–80; RESP 15–20; TEMP 36.4–37.6; O2SAT 97–100
[2021-07-22 04:14] LABS: Hemoglobin 9.6 g/dL (12.0-15.0); Mean Corpuscular Hemoglobin 32.7 pg (26-34); Mean Corpuscular Volume 108.8 fl (80-100); Mean Platelet Volume 11.6 fl (7.4-10.4); Platelet Count Result 181 k/mm3 (150-375); Red Blood Count 2.94 M/mm3 (4.2-5.4); Red Cell Distribution Width 21.7 % (11.5-14.5); White Blood Count 13.5 K/mm3 (4.5-10.0)
[2021-07-22 04:26] LABS: Albumin Level 3.3 g/dL (3.5-5.1); Anion Gap 7 mmol/L (8-16); Blood Urea Nitrogen 54 mg/dL (7-17); Carbon Dioxide 28 mmol/L (22-30); Chloride 99 mmol/L (98-107); Estimated CRCL calculation 12 ml/min; Estimated Glomerular Filt Rate 15; Glucose 316 mg/dL (65-110); Phosphorus 4.4 mg/dL (2.5-4.5); Potassium 4.5 mmol/L (3.4-5.0); Sodium 134 mmol/L (137-145)
[2021-07-22] MEDS: CENTRAL LINE FLUSH 10 ML IV PUSH ×3 (05:48→21:00)
[2021-07-22] MEDS: INSULIN ASPART (*BKC) 100 UNITS/ML SUB-Q ×3 (05:48→17:34)
[2021-07-22] MEDS: TOLNAFTATE 1% POWDER 45 GM BTL 1 APPLIC TOPICAL ×3 (05:48→21:01)
[2021-07-22] MEDS: INSULIN GLARGINE (*BKC) 100 UNITS/ML 10 UNITS SUB-Q (08:23)
[2021-07-22] MEDS: PANTOPRAZOLE SODIUM IV 40 MG VIAL IV PUSH ×2 (08:24→21:00)
[2021-07-22] MEDS: APIXABAN 2.5 MG TABLET PO ×2 (08:24→21:54)
[2021-07-22] MEDS: MULTIVITAMINS THERAPEUTIC TAB (*BKC) 1 TABLET PO (08:24)
[2021-07-22] MEDS: CHOLECALCIFEROL 1,000 UNITS TABLET 5000 UNITS PO (08:24)
[2021-07-22] MEDS: carvediloL 6.25 MG TABLET PO ×2 (08:24→21:54)
[2021-07-22 08:25] LABS: Glucose Point of Care 293 mg/dl (65-105)
--- NOTE | 2021-07-22 09:52 | P.PNNP_ITS ---
Progress Note: A&P Assessment and Plan (1) GISELLE (acute kidney injury): Code(s): N17.9 - Acute kidney failure, unspecified Status: Acute Assessment and Plan: * acute kidney injury * kidneys looked okay on recent CT abdomen. * Urine electrolytes non pre renal but she was on diuretics. * minimal urine output. * Will do another dialysis treatment tomorrow (2) Chronic kidney disease, stage IV (severe): Code(s): N18.4 - Chronic kidney disease, stage 4 (severe) Status: Chronic Assessment and Plan: * baseline creatine averages around 2.0 - 2.7mg/dl * thought to be secondary to her HTN, DM, cardiac/vascular disease and need for diuretics to maintain her volume status * it was felt on last hospitalization that a higher creatinine would have to be accepted to achieve some degree of euvolemia. * Now with minimal amounts of urine, will continue dialysis. (3) Cardiac arrest: Code(s): I46.9 - Cardiac arrest, cause unspecified Status: Acute Assessment and Plan: * likely multifactorial: * hypoglycemia (suspect the predominant issue) * hypoxia * cardiac event(?) * infection(?) * recent Echo noted * already on anticoagulation (4) Acute and chronic respiratory failure: Code(s): J96.20 - Acute and chronic respiratory failure, unspecified whether with hypoxia or hypercapnia Status: Acute Assessment and Plan: * resolving * she is getting Dobbhoff tube feedings and is NPO. Some of the respiratory issues might have been due to aspiration. * Now on 2L of oxygen. (5) Acute on chronic diastolic heart failure: Code(s): I50.33 - Acute on chronic diastolic (congestive) heart failure Status: Acute Assessment and Plan: * Volume control with dialysis. * Still not making very much urine at all. (6) Anemia: Code(s): D64.9 - Anemia, unspecified Status: Chronic Assessment and Plan: * due to GISELLE, CKD, and acute illness * She is getting Epogen therapy. * No need for iron right now because of active infection. 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 * Hospitalist managing this. Subjective Date/time seen: 07/22/21 09:52 Interval history: Patient is very weak. Lying in the hospital bed. Getting tube feedings per Dobbhoff tube. Exam Narrative: General: somewhat ill appearing female in NAD Heart: normal S1 and S2; no rub Lungs: coarse breath sounds Throughout Abdomen: soft, nontender, decreased bowel sounds Extremities: no cyanosis or clubbing; 1-2+ edema bilaterally Skin: No rash. Objective Data Vital Signs Vital Signs: Vital Signs - 24 hr 07/21/21 10:00 07/21/21 10:15 07/21/21 10:30 Temperature Pulse Rate 65 65 70 Respiratory Rate Blood Pressure 134/67 112/51 L 130/60 Pulse Oximetry Oxygen Delivery Oxygen Flow Rate
--- NOTE | 2021-07-22 09:52 | PM.PNNEP ---
Progress Note: A&P Assessment and Plan (1) GISELLE (acute kidney injury): Code(s): N17.9 - Acute kidney failure, unspecified Status: Acute Assessment and Plan: acute kidney injury kidneys looked okay on recent CT abdomen. Urine electrolytes non pre renal but she was on diuretics. minimal urine output. Will do another dialysis treatment tomorrow (2) Chronic kidney disease, stage IV (severe): Code(s): N18.4 - Chronic kidney disease, stage 4 (severe) Status: Chronic Assessment and Plan: baseline creatine averages around 2.0 - 2.7mg/dl thought to be secondary to her HTN, DM, cardiac/vascular disease and need for diuretics to maintain her volume status it was felt on last hospitalization that a higher creatinine would have to be accepted to achieve some degree of euvolemia. Now with minimal amounts of urine, will continue dialysis. (3) Cardiac arrest: Code(s): I46.9 - Cardiac arrest, cause unspecified Status: Acute Assessment and Plan: likely multifactorial: hypoglycemia (suspect the predominant issue) hypoxia cardiac event(?) infection(?) recent Echo noted already on anticoagulation (4) Acute and chronic respiratory failure: Code(s): J96.20 - Acute and chronic respiratory failure, unspecified whether with hypoxia or hypercapnia Status: Acute Assessment and Plan: resolving she is getting Dobbhoff tube feedings and is NPO. Some of the respiratory issues might have been due to aspiration. Now on 2L of oxygen. (5) Acute on chronic diastolic heart failure: Code(s): I50.33 - Acute on chronic diastolic (congestive) heart failure Status: Acute Assessment and Plan: Volume control with dialysis. Still not making very much urine at all. (6) Anemia: Code(s): D64.9 - Anemia, unspecified Status: Chronic Assessment and Plan: due to GISELLE, CKD, and acute illness She is getting Epogen therapy. No need for iron right now because of active infection. 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 Hospitalist managing this. Subjective Date/time seen: 07/22/21 09:52 Interval history: Patient is very weak. Lying in the hospital bed. Getting tube feedings per Dobbhoff tube. Exam Narrative: General: somewhat ill appearing female in NAD Heart: normal S1 and S2; no rub Lungs: coarse breath sounds Throughout Abdomen: soft, nontender, decreased bowel sounds Extremities: no cyanosis or clubbing; 1-2+ edema bilaterally Skin: No rash. Objective Data Vital Signs Vital Signs: Vital Signs - 24 hr 07/21/21 10:00 07/21/21 10:15 07/21/21 10:30 Temperature Pulse Rate 65 65 70 Respiratory Rate Blood Pressure 134/67 112/51 L 130/60 Pulse Oximetry Oxygen Delivery Oxygen Flow Rate 07/21/21 10:45 07/21/21 11:00 07/21/21 11:15 Temperature Pulse Rate 67 67 70 Respiratory Rate Blood Pressure 127/50 L 116/53 L 125/59 L Pulse Oximetry Oxygen Delivery Oxygen Flow Rate 07/21/21 11:30 07/21/21 10:00 07/21/21 10:00 Temperature 35.8 C L 35.9 C L Pulse Rate 71 65 65 Respiratory Rate 19 15 Blood Pressure 133/53 L 134/67 Pulse Oximetry 100 100 Oxygen Delivery Oxygen Flow Rate 07/21/21 12:12 07/21/21 12:00 07/21/21 12:00 Temperature 36.2 C L Pulse Rate 71 74 Respiratory Rate 16 Blood Pressure 142/60 H Pulse Oximetry 100 99 Oxygen Deliver
--- NOTE | 2021-07-22 10:12 | PM.IMPN ---
Progress Note: A&P Assessment and Plan (1) Cardiac arrest: Code(s): I46.9 - Cardiac arrest, cause unspecified Status: Acute Assessment and Plan: Patient had a cardiac arrest (PEA) on 07/13/2020 which is most likely multifactorial. At that time her blood sugar was less than 20 so hypoglycemia is likely etiology. Patient was also hypoxic with diffuse pulmonary edema. (2) Acute and chronic respiratory failure: Code(s): J96.20 - Acute and chronic respiratory failure, unspecified whether with hypoxia or hypercapnia Status: Acute Assessment and Plan: Acute Respiratory failure secondary to congestive heart failure, pulmonary edema, cardiac arrest, possible aspiration -continue hemodialysis Currently on day 4 of vancomycin and Zosyn for possible aspiration pneumonia, started on July 18, 2021, will discontinue these in favor of Unasyn, end date July 25, 2021 to complete a full 7 day course for suspected aspiration pneumonia (3) Shock: Code(s): R57.9 - Shock, unspecified Status: Acute Assessment and Plan: Resolved (4) Edema: Qualifiers: Edema type: localized Qualified Code(s): R60.0 - Localized edema Code(s): R60.9 - Edema, unspecified Status: Acute Assessment and Plan: Appears much resolved with hemodialysis, appreciate nephrology consultation (5) CKD (chronic kidney disease): Qualifiers: Chronic kidney disease stage: unspecified stage Qualified Code(s): N18.9 - Chronic kidney disease, unspecified Code(s): N18.9 - Chronic kidney disease, unspecified Status: Acute Assessment and Plan: end-stage renal disease -dialysis per Nephrology -volume status much improved (6) Volume overload: Code(s): E87.70 - Fluid overload, unspecified Status: Acute Assessment and Plan: Volume status much improved with hemodialysis (7) Congestive heart failure: Qualifiers: Heart failure chronicity: acute on chronic Heart failure type: diastolic Qualified Code(s): I50.33 - Acute on chronic diastolic (congestive) heart failure Code(s): I50.9 - Heart failure, unspecified Status: Acute Assessment and Plan: Continue medical management (8) Type 2 diabetes mellitus with hyperglycemia: Code(s): E11.65 - Type 2 diabetes mellitus with hyperglycemia Status: Acute Assessment and Plan: Accuchecks with sliding scale insulin and Lantus, uncontrolled, discontinue D5, start normal saline, check A1c (9) Hypoglycemia: Code(s): E16.2 - Hypoglycemia, unspecified Status: Acute Assessment and Plan: Resolved (10) Anemia: Code(s): D64.9 - Anemia, unspecified Status: Chronic Assessment and Plan: Monitor (11) Leukocytosis: Code(s): D72.829 - Elevated white blood cell count, unspecified Status: Acute Assessment and Plan: Monitor labs. Currently on day 4 of antibiotics, leukocytosis trending down, will DC vancomycin and Zosyn in favor of unasyn, renally dosed, for an additonal 3 days, then stop July 25, 2021 (12) DVT (deep venous thrombosis): Code(s): I82.409 - Acute embolism and thrombosis of unspecified deep veins of unspecified lower extremity Status: Acute Assessment and Plan: Initial Doppler of right lower extremity showed positive DVT of the right peroneal vein, repeat Doppler one week later showed no DVT present, however, V/Q scan did show intermediate probability for PE, will continue Eliquis (13) Pulmonary emboli: Code(s): I26.99 - Other pulmonary embolism without acute cor pulmonale Status: Acute Assessment and Plan: Intermediate probability on V/Q scan. Continue Eliquis Subjective Date/time seen: 07/22/21 10:12 Interval history: Patient is very weak. Intermittently responsive, no events noted overnight. Lying in the hospital bed. Getting tube feeding
[2021-07-22 10:48] LABS: Hemoglobin A1C 5.8 % (<5.7)
[2021-07-22] MEDS: AMPICILLIN SULB 1.5 GM/NS 50ML 1.5 GM/50 ML VIAL IVPB (11:10)
--- NOTE | 2021-07-22 11:43 | PCSTNOTE ---
The patient treatment was not able to be completed on 07/22 due to being too sleepy and unable to arouse for therapy. Will plan to continue treatment per plan of care.
--- NOTE | 2021-07-22 11:51 | PCOTNOTE ---
Patient unarousable, RN will hold orders until able to participate in OT.
--- NOTE | 2021-07-22 11:57 | PCPTNOTE ---
Patient unarousable, RN will hold orders until able to participate in PT.
[2021-07-22 12:15] LABS: Glucose Point of Care 196 mg/dl (65-105)
[2021-07-22] MEDS: SODIUM CHLORIDE 0.9% IV 1,000 ML 100 ML IV CONT ×2 (12:21→21:59)
[2021-07-22 17:33] LABS: Glucose Point of Care 218 mg/dl (65-105)
[2021-07-22] MEDS: ATORVASTATIN 40 MG TABLET PO (17:33)
[2021-07-22 20:43] LABS: Glucose Point of Care 163 mg/dl (65-105)
[2021-07-23] VITALS (18 sets, daily range): BP systolic 100–162; BP diastolic 47–58; PULSE 63–84; RESP 13–26; TEMP 36.3–37; O2SAT 90–100
[2021-07-23 00:30] LABS: Glucose Point of Care 191 mg/dl (65-105)
[2021-07-23 04:17] LABS: Glucose Point of Care 288 mg/dl (65-105)
[2021-07-23] MEDS: INSULIN ASPART (*BKC) 100 UNITS/ML SUB-Q ×2 (04:17→09:36)
[2021-07-23 04:35] LABS: Albumin Level 3.3 g/dL (3.5-5.1); Anion Gap 7 mmol/L (8-16); Blood Urea Nitrogen 68 mg/dL (7-17); Carbon Dioxide 27 mmol/L (22-30); Chloride 102 mmol/L (98-107); Estimated CRCL calculation 10 ml/min; Estimated Glomerular Filt Rate 11; Glucose 303 mg/dL (65-110); Phosphorus 5.8 mg/dL (2.5-4.5); Potassium 4.5 mmol/L (3.4-5.0); Sodium 136 mmol/L (137-145)
[2021-07-23] MEDS: CENTRAL LINE FLUSH 10 ML IV PUSH (05:44)
[2021-07-23] MEDS: TOLNAFTATE 1% POWDER 45 GM BTL 1 APPLIC TOPICAL (05:44)
--- NOTE | 2021-07-23 08:01 | P.PNNP_ITS ---
Progress Note: A&P Assessment and Plan (1) GISELLE (acute kidney injury): Code(s): N17.9 - Acute kidney failure, unspecified Status: Acute Assessment and Plan: * acute kidney injury * kidneys looked okay on recent CT abdomen. * Urine electrolytes non pre renal but she was on diuretics. * minimal urine output. * is scheduled for dialysis today. (2) Chronic kidney disease, stage IV (severe): Code(s): N18.4 - Chronic kidney disease, stage 4 (severe) Status: Chronic Assessment and Plan: * baseline creatine averages around 2.0 - 2.7mg/dl * thought to be secondary to her HTN, DM, cardiac/vascular disease and need for diuretics to maintain her volume status * Now with minimal amounts of urine, will continue dialysis. (3) Cardiac arrest: Code(s): I46.9 - Cardiac arrest, cause unspecified Status: Acute Assessment and Plan: * likely multifactorial: * hypoglycemia (suspect the predominant issue) * hypoxia * cardiac event(?) * infection(?) * recent Echo noted * already on anticoagulation (4) Acute and chronic respiratory failure: Code(s): J96.20 - Acute and chronic respiratory failure, unspecified whether with hypoxia or hypercapnia Status: Acute Assessment and Plan: * resolving * she is getting Dobbhoff tube feedings and is NPO. Some of the respiratory issues might have been due to aspiration. * Now on 2L of oxygen. (5) Acute on chronic diastolic heart failure: Code(s): I50.33 - Acute on chronic diastolic (congestive) heart failure Status: Acute Assessment and Plan: * Volume control with dialysis. * Still not making very much urine at all. (6) Anemia: Code(s): D64.9 - Anemia, unspecified Status: Chronic Assessment and Plan: * due to GISELLE, CKD, and acute illness * She is getting Epogen therapy. * No need for iron right now because of active infection. (7) Diabetes: Qualifiers: Diabetes mellitus type: type 2 Diabetes mellitus care home insulin use: with intermediate accountant use Diabetes mellitus complication status: with other specified complication Qualified Code(s): E11.69 - Type 2 diabetes mellitus with other specified complication; Z79.4 - long-term (current) use of insulin Code(s): E11.9 - Type 2 diabetes mellitus without complications Status: Chronic Assessment and Plan: * On Accu-Cheks and sliding-scale insulin. * Hospitalist managing this. Subjective Date/time seen: 07/23/21 08:00 Interval history: Patient is very weak. Still getting Dobbhoff tube feedings. Due for dialysis today Exam Narrative: General: somewhat ill appearing female in NAD Heart: normal S1 and S2; no rub Lungs: coarse breath sounds Throughout Abdomen: soft, nontender, decreased bowel sounds Extremities: no cyanosis or clubbing; 1-2+ edema bilaterally mostly pre sacral Skin: No rash. Objective Data Vital Signs Vital Signs: Vital Signs - 24 hr 07/22/21 12:00 07/22/21 12:00 07/22/21 12:00 Temperature 36.4 C Pulse Rate 69 70 Respiratory Rate 15 Blood Pressure 110/42 L Pulse Oximetry 100 98 Oxygen Delivery Nasal Cannula Oxygen Flow Rate 2 07/22/21 14:00 07/22/21 16:00 07/22/21 16:00 Temperature Pulse Ra
--- NOTE | 2021-07-23 08:01 | PM.PNNEP ---
Progress Note: A&P Assessment and Plan (1) GISELLE (acute kidney injury): Code(s): N17.9 - Acute kidney failure, unspecified Status: Acute Assessment and Plan: acute kidney injury kidneys looked okay on recent CT abdomen. Urine electrolytes non pre renal but she was on diuretics. minimal urine output. is scheduled for dialysis today. (2) Chronic kidney disease, stage IV (severe): Code(s): N18.4 - Chronic kidney disease, stage 4 (severe) Status: Chronic Assessment and Plan: baseline creatine averages around 2.0 - 2.7mg/dl thought to be secondary to her HTN, DM, cardiac/vascular disease and need for diuretics to maintain her volume status Now with minimal amounts of urine, will continue dialysis. (3) Cardiac arrest: Code(s): I46.9 - Cardiac arrest, cause unspecified Status: Acute Assessment and Plan: likely multifactorial: hypoglycemia (suspect the predominant issue) hypoxia cardiac event(?) infection(?) recent Echo noted already on anticoagulation (4) Acute and chronic respiratory failure: Code(s): J96.20 - Acute and chronic respiratory failure, unspecified whether with hypoxia or hypercapnia Status: Acute Assessment and Plan: resolving she is getting Dobbhoff tube feedings and is NPO. Some of the respiratory issues might have been due to aspiration. Now on 2L of oxygen. (5) Acute on chronic diastolic heart failure: Code(s): I50.33 - Acute on chronic diastolic (congestive) heart failure Status: Acute Assessment and Plan: Volume control with dialysis. Still not making very much urine at all. (6) Anemia: Code(s): D64.9 - Anemia, unspecified Status: Chronic Assessment and Plan: due to GISELLE, CKD, and acute illness She is getting Epogen therapy. No need for iron right now because of active infection. (7) Diabetes: Qualifiers: Diabetes mellitus type: type 2 Diabetes mellitus senior living insulin use: with intermodal dispatcher use Diabetes mellitus complication status: with other specified complication Qualified Code(s): E11.69 - Type 2 diabetes mellitus with other specified complication; Z79.4 - technician terminal and repeater (current) use of insulin Code(s): E11.9 - Type 2 diabetes mellitus without complications Status: Chronic Assessment and Plan: On Accu-Cheks and sliding-scale insulin. Hospitalist managing this. Subjective Date/time seen: 07/23/21 08:00 Interval history: Patient is very weak. Still getting Dobbhoff tube feedings. Due for dialysis today Exam Narrative: General: somewhat ill appearing female in NAD Heart: normal S1 and S2; no rub Lungs: coarse breath sounds Throughout Abdomen: soft, nontender, decreased bowel sounds Extremities: no cyanosis or clubbing; 1-2+ edema bilaterally mostly pre sacral Skin: No rash. Objective Data Vital Signs Vital Signs: Vital Signs - 24 hr 07/22/21 12:00 07/22/21 12:00 07/22/21 12:00 Temperature 36.4 C Pulse Rate 69 70 Respiratory Rate 15 Blood Pressure 110/42 L Pulse Oximetry 100 98 Oxygen Delivery Nasal Cannula Oxygen Flow Rate 2 07/22/21 14:00 07/22/21 16:00 07/22/21 16:00 Temperature Pulse Rate 73 77 Respiratory Rate Blood Pressure Pulse Oximetry 98 Oxygen Delivery Nasal Cannula Oxygen Flow Rate 3 07/22/21 16:00 07/22/21 18:00 07/22/21 20:00 Temperature 36.4 C 36.7 C Pulse Rate 78 76 74 Respiratory Rate 17 17 Blood Pressure 140/51 L 124/43 L Pulse Oximetry 100 100 Oxygen Delivery Oxygen Flow Rate 07/22/21 21:54 07/22/21 22:00 07/23/21 00:40 Temperature Pulse Rate 78 75 77 Respiratory Rate 16 Blood Pressure Pulse Oximetry 93 Oxygen Delivery High Flow Nasal Cannula Oxygen Flow Rate 10 07/22/21 21:30 07/23/21 02:00 07/23/21 00:00 Temperature 36.7 C Pulse Rate 78 76 R
[2021-07-23 08:12] LABS: Glucose Point of Care 250 mg/dl (65-105)
[2021-07-23] MEDS: INSULIN GLARGINE (*BKC) 100 UNITS/ML 10 UNITS SUB-Q (09:35)
[2021-07-23] MEDS: INSULIN GLARGINE (*BKC) 100 UNITS/ML 8 UNITS SUB-Q (10:05)
[2021-07-23 10:30] LABS: Glucose Point of Care 191 mg/dl (65-105)
[2021-07-23 10:58] LABS: Base Excess ABG -0.6 mEq/l (+/-2.0); HCO3 ABG 28.3 mEq/l (22.0-26.0); Oxygen Saturation ABG 99.6 % (95.0-100.0); PCO2 ABG 72.4 mmHg (35.0-45.0); PO2 ABG 307.6 mmHg (80.0-100.0); pH ABG 7.213 (7.350-7.450)
[2021-07-23 11:00] LABS: Device NON-REBREATHER MASK; Modified Allen's Test Pass; Site Drawn RIGHT RADIAL
--- NOTE | 2021-07-23 11:26 | WPDINTPN ---
Progress Note: A&P Assessment and Plan (1) Acute and chronic respiratory failure: Code(s): J96.20 - Acute and chronic respiratory failure, unspecified whether with hypoxia or hypercapnia Status: Acute (2) Cardiac arrest: Code(s): I46.9 - Cardiac arrest, cause unspecified Status: Acute (3) Edema: Qualifiers: Edema type: localized Qualified Code(s): R60.0 - Localized edema Code(s): R60.9 - Edema, unspecified Status: Acute (4) CKD (chronic kidney disease): Qualifiers: Chronic kidney disease stage: unspecified stage Qualified Code(s): N18.9 - Chronic kidney disease, unspecified Code(s): N18.9 - Chronic kidney disease, unspecified Status: Acute (5) Volume overload: Code(s): E87.70 - Fluid overload, unspecified Status: Acute Assessment and Plan: see above (6) Congestive heart failure: Qualifiers: Heart failure type: diastolic Heart failure chronicity: acute on chronic Qualified Code(s): I50.33 - Acute on chronic diastolic (congestive) heart failure Code(s): I50.9 - Heart failure, unspecified Status: Acute (7) Type 2 diabetes mellitus with hyperglycemia: Code(s): E11.65 - Type 2 diabetes mellitus with hyperglycemia Status: Acute Assessment and Plan: does not eat or drink her blood sugars drop significantly - continue sliding scale insulin q.4 hours and Accu-Chek (8) Anemia: Code(s): D64.9 - Anemia, unspecified Status: Chronic Additional Plan patient was hypoxic with poor mental status this morning. I obtained an ABG which showed respiratory acidosis and hypercarbia. Tube feeds were discontinued. patient's daughter was at bedside. I discussed the patient's current status and option of re-intubating her and placing her back on mechanical ventilation. We also discussed patient's current medical problems including respiratory failure, esrd requiring hemodialysis, congestive heart failure, poorly-controlled type, general debility, dysphagia requiring tube feeding from Dobbhoff. patient has been in the hospital for close to 2 weeks now. Patient also has had multiple admissions in the recent past. She discussed with her sisters and with seafood service team member Aleksandr. This was followed by conference call between Aleksandr lew and patient's 3 daughters. 2 of them were on the phone. I again updated them with patient's current condition, treatment plan, expected prognosis and different potential outcomes. I mentioned that patient needs re-intubation at this time to her respiratory failure and poor mental status. They all were in agreement that patient would not want to continue like this at this point. Considering her multiple medical problems poor prognosis overall they do not want her to be reintubate. They also do not think the patient would want to go to a facility. We discussed option of hospice and comfort care. I answered all their questions. The family has decided, in accordance with pt's wishes, to discontinue all medical therapy and institute comfort measures only. I I explained them that I will use opioids, anxiolytics and other agents on as needed basis to promote comfort and discontinue all medical therapy, lab testing and invasive monitoring. I have discussed with primary physician Dr. Mancia who is in agreement with plan. Total Critical Care Time: 30 minutes Due to a high probability of clinically significant, life threatening deterioration, the patient required my highest level of preparedness to intervene emergently and I personally spent this critical care time directly and personally managing the patient. This critical care time included obtaining a history; examining the patient; pulse oximetry; ordering and review of studies; arranging urgent treatment with development of a management plan; evaluation of patient's response to treatment; frequent reassessment; and discussions with
--- NOTE | 2021-07-23 11:59 | PCSTNOTE ---
Due to patient's deteriorating condition, patient will be discharged from Speech Therapy services at this time.
--- NOTE | 2021-08-11 07:45 | PM.TDS ---
Transfer Discharge Sum: Prov Provider Date of admission: 07/13/21 08:25 Primary care physician: Pierce Faith, MD Admitting clinician: Jaida Mancia DO Consults: 07/11/21 Consult to Physician Routine Comment: Consulting Provider: Fabio Nolan Reason for consultation: Edema, chronic kidney disease, CHF Has provider been notified: Yes 07/12/21 Consult to Physician Routine Comment: Consulting Provider: Kian Schofield call center director/MD group to consult: [facility] Reason for consultation: Elevated BNP and SOB Has provider been notified: Yes 07/13/21 Consult to Physician Routine Comment: Consulting Provider: Rajendra Simon Reason for consultation: post cardiac arrest Has provider been notified: Yes 07/23/21 Care Coordination Consult Routine Comment: Reason for Consult:: Hospice Referral Consult to Physician Routine Comment: Called office and notified them of consult Consulting Provider: Talya Edwards Reason for consultation: placement for tunnel dialysis catheter Has provider been notified: Yes Attending physician on discharge: Jaida Mancia Discharging clinician: Jaida Mancia Anticipated date of transfer: 07/23/21 Receiving physician/facility: Transferred to inpatient hospice DS: Admitting Diagnosis Discharge Date 07/23/21 Admitting Diagnosis Cardiorenal syndrome DS: Discharge Diagnosis Discharge Diagnosis (1) Acute and chronic respiratory failure: Code(s): J96.20 - Acute and chronic respiratory failure, unspecified whether with hypoxia or hypercapnia Status: Acute (2) Cardiac arrest: Code(s): I46.9 - Cardiac arrest, cause unspecified Status: Acute (3) Edema: Qualifiers: Edema type: localized Qualified Code(s): R60.0 - Localized edema Code(s): R60.9 - Edema, unspecified Status: Acute (4) CKD (chronic kidney disease): Qualifiers: Chronic kidney disease stage: unspecified stage Qualified Code(s): N18.9 - Chronic kidney disease, unspecified Code(s): N18.9 - Chronic kidney disease, unspecified Status: Acute (5) Volume overload: Code(s): E87.70 - Fluid overload, unspecified Status: Acute Assessment and Plan: see above (6) Congestive heart failure: Qualifiers: Heart failure type: diastolic Heart failure chronicity: acute on chronic Qualified Code(s): I50.33 - Acute on chronic diastolic (congestive) heart failure Code(s): I50.9 - Heart failure, unspecified Status: Acute (7) Type 2 diabetes mellitus with hyperglycemia: Code(s): E11.65 - Type 2 diabetes mellitus with hyperglycemia Status: Acute Assessment and Plan: does not eat or drink her blood sugars drop significantly - continue sliding scale insulin q.4 hours and Accu-Chek (8) Anemia: Code(s): D64.9 - Anemia, unspecified Status: Chronic Transfer Discharge Sum: Med Medications Active and Home Medications: Home Medications atorvastatin 40 mg tablet 40 mg PO QPM 12/29/18 [History Confirmed 07/23/21] carvedilol 25 mg tablet 25 mg PO BID 01/27/21 [History Confirmed 07/23/21] amlodipine 10 mg tablet 10 mg PO DAILY 03/17/21 [History Confirmed 07/23/21] aspirin 81 mg tablet,delayed release 81 mg PO HS 03/17/21 [History Confirmed 07/23/21] insulin glargine 100 unit/mL subcutaneous solution 10 unit subcut HS 03/20/21 [History Confirmed 07/23/21] acetaminophen 500 mg tablet 500 mg PO Q6H PRN Pain 06/20/21 [History Confirmed 07/23/21] albuterol sulfate 90 mcg/actuation aerosol inhaler 2 puff inhalation QID PRN Shortness Of Breath 06/20/21 [History Confirmed 07/23/21] cholecalciferol (vitamin D3) 125 mcg (5,000 unit) tablet 125 mcg PO DAILY 06/20/21 [History Confirmed 07/23/21] insulin lispro 100 unit/mL subcutaneous pen (Humalog KwikPen (U-100) Insulin) 1 sliding scale dose subcut USEASDIRECTD 06/20/21 [History Confirmed 07/23/21] insulin lispro
== END 2021-07-23 13:43 | disposition hospice, inpatient (51) | DRG 291 ==
LOC: ANHED 21:30 → ANHIMU 22:19 → ANHICU 07-13 08:12
PROVIDERS: Chiropractor; Internal Medicine; Internal Medicine Nephrology; Admitting Provider Student in an Organized Health Care Education/Training Program; Emergency Provider Emergency Medicine; PCP Family Medicine; Visit Provider Student in an Organized Health Care Education/Training Program
DX: I13.0 Hypertensive heart and chronic kidney disease with heart failure and stage 1 through stage 4 chronic kidney disease, or unspecified chronic kidney disease (principal); A41.9 Sepsis, unspecified organism; I50.33 Acute on chronic diastolic (congestive) heart failure; J18.9 Pneumonia, unspecified organism; J69.0 Pneumonitis due to inhalation of food and vomit; R65.21 Severe sepsis with septic shock; N17.0 Acute kidney failure with tubular necrosis; J96.20 Acute and chronic respiratory failure, unspecified whether with hypoxia or hypercapnia; I26.99 Other pulmonary embolism without acute cor pulmonale; I46.8 Cardiac arrest due to other underlying condition; N18.4 Chronic kidney disease, stage 4 (severe); E87.1 Hypo-osmolality and hyponatremia; I82.451 Acute embolism and thrombosis of right peroneal vein; E87.2 Acidosis; Z51.5 Encounter for palliative care; Z20.822 Contact with and (suspected) exposure to COVID-19; E11.65 Type 2 diabetes mellitus with hyperglycemia; E11.22 Type 2 diabetes mellitus with diabetic chronic kidney disease; Z79.4 Long term (current) use of insulin; D63.1 Anemia in chronic kidney disease; Z99.81 Dependence on supplemental oxygen; E78.5 Hyperlipidemia, unspecified; G47.33 Obstructive sleep apnea (adult) (pediatric); E11.319 Type 2 diabetes mellitus with unspecified diabetic retinopathy without macular edema; I27.29 Other secondary pulmonary hypertension; E87.70 Fluid overload, unspecified; R00.1 Bradycardia, unspecified; E11.649 Type 2 diabetes mellitus with hypoglycemia without coma; I08.2 Rheumatic disorders of both aortic and tricuspid valves
CPT/HCPCS: 31500; 36415; 36600; 43752; 51701; 70450; 71045; 71046; 71250; 74019; 74176; 80053; 80069; 80074; 80202; 81001; 81050; 82375; 82436; 82550; 82570; 82805; 82948; 83010; 83036; 83050; 83605; 83615; 83735; 83880; 84100; 84145; 84156; 84300; 84484; 85025; 85027; 85046; 85055; 85999; 86704; 86706; 87040; 87070; 87086; 87088; 87205; 87340; 92526; 92610; 92611; 92950; 93005; 93306; 93970; 94002; 94003; 94640; 96374; 96375; 96376; 97110; 97162; 97166; 97530; 97535; 99285; A9270; C1751; C1752; C9113; C9803; G0257; G0378; G0379; J0131; J0171; J0295; J0360; J0461; J1644; J1815; J1885; J2250; J2405; J2543; J3010; J3370; J7030; P9047; Q5105; U0003; U0005

== ENCOUNTER 2021-07-23 12:55 | HOS | payer OTHER, MEDICARE, SELFPAY ==
--- NOTE | 2021-07-23 13:44 | PC.NURSE ---
This patient, Mine Dwyer, was admitted to Intensive Care Unit-9. ADMITTED WITH [facility]. Patient/family oriented to hospital policies and general routines including ID bracelet, bed and alarms, visiting hours, pain management, procedures, bathroom and other care routines, personal items, smoking policy, room service/diet, and visiting hours. Information on how to activate the Rapid Response Team has been discussed. Patient/Family are encouraged to report perceived risks to care and to ask questions if they do not understand what they are told or what they should do.
[2021-07-23 14:00] VITALS: BP 132/56; PULSE 76; RESP 15; TEMP 36.6; O2SAT 100
[2021-07-23 14:42] VITALS: PULSE 75; RESP 16
[2021-07-23] MEDS: HYDROmorphone HCL/PF (*CRX) 50 MG in SODIUM CHLORIDE 0.9% IV 95 ML IV CONT (14:42)
--- NOTE | 2021-07-23 15:29 | PM.IMPN ---
Subjective Date/time seen: 07/23/21 15:29 Objective Data Vital Signs Vital Signs: Vital Signs - 24 hr 07/23/21 14:42 Pulse Rate 75 Respiratory Rate 16 Meds/Results Medications: Active Medications Generic Name Dose Route Start Last Admin Trade Name Freq PRN Reason Stop Dose Admin Artificial Tears 0 drop 07/23/21 14:25 Artificial Tears Ophth Soln 15 Ml Bottle EACH EYE Q12H PRN Dry Eye(s) Bisacodyl 10 mg 07/23/21 14:25 Bisacodyl 10 Mg Suppository RECTAL DAILY PRN Constipation Glycopyrrolate 0.1 mg 07/23/21 14:25 Glycopyrrolate Inj (*Sp) 0.2 Mg/Ml Vial IV PUSH Q4H PRN secretions Hydromorphone HCl 1 mg 07/23/21 14:27 Hydromorphone Hcl Inj (*Crx) 1 Mg/Ml Syr IV PUSH Q2H PRN SOB/PAIN Hydromorphone HCl 50 mg/ 100 mls @ 0.5 mls/hr 07/23/21 15:00 07/23/21 14:42 Sodium Chloride IV CONT 0.25 mg/hr .Q24H LIS 0.5 mls/hr Administration 0.25 MG/HR Lorazepam 1 mg 07/23/21 14:25 Lorazepam Inj (*Crx) 2 Mg/Ml Vial IV PUSH Q4H PRN ANXIETY/RESTLESSNESS Prochlorperazine Edisylate 10 mg 07/23/21 14:25 Prochlorperazine Edisylate 10 Mg/2 Ml Vial IV PUSH Q6H PRN Nausea And Vomiting
[2021-07-23 15:33] VITALS: BMI 24.3
[2021-07-23 15:50] VITALS: BMI 24.3
[2021-07-23 15:55] VITALS: BP 132/56; TEMP 36.6; O2SAT 100
[2021-07-23 16:00] VITALS: O2SAT 100
--- NOTE | 2021-07-23 16:23 | PM.IMHP ---
H&P: HPI History of Present Illness Date/Time: 07/23/21 16:23 Chief Complaint: Uncontrolled dyspnea Narrative: this unfortunate 70-year-old female with a history of Type 2 diabetes, congestive heart failure COPD pulmonary hypertension moderately severe aortic stenosis was discharged from [facility] after CHF exacerbation on July 10. However her breathing and swelling rapidly deteriorated so that she was readmitted July 11. Diuresis was again initiated. She is on home oxygen that was continued. On July 13 she experienced cardiac arrest. She was intubated and transferred to intensive care. She experienced acute kidney injury. Creatinine remained in the 4.0 range. Her mental status was not improving. Family wished extubation. Patient was experiencing dyspnea after extubation. They wished admission to inpatient hospice Service for symptom management until . [facility] Past Medical History Medical History Anemia of chronic disease Aortic valve stenosis Moderate to severe on cardiac catheterization in 12/2019. Carotid stenosis (12/2018) Bilateral carotid stenosis 50-69%. Chronic kidney disease, stage IV (severe) Chronic respiratory failure with hypoxia, on home oxygen therapy Colon polyps Colonoscopy in August 2017 showing internal hemorrhoids. Congestive heart failure 07/03/2021 echo: Normal LV systolic function, EF 50 to 55%. Increased LV wall thickness. Grade 2 diastolic dysfunction. Reduced RV systolic function. Moderate aortic valve stenosis/regurgitation. Severe pulmonary hypertension, PASP 74 mmHg. Hand fracture Hyperlipidemia Hypertension Lymphedema bilateral lower extremities left greater than right Mitral valve prolapse Moderate to severe aortic stenosis. Mitral valve regurgitation. Obstructive sleep apnea on CPAP Osteoporosis Post-menopausal Retinopathy Severe pulmonary hypertension PASP 74 mmHg on echo in June 2021. Type 2 diabetes mellitus with insulin therapy Valvular heart disease Surgical History Surgical History History of angiography Right leg without intervention. History of bilateral cataract extraction (10/2019) History of bilateral tubal ligation History of cardiac catheterization (12/2019) Mild coronary artery disease, moderate to severe aortic valve stenosis. Status post laser cataract surgery of both eyes Family History Family History Mother Hypertension DVT (deep venous thrombosis) Vertigo Father Hypertension Cerebrovascular accident Sibling Graves disease Vertigo Sibling Family history of thyroid disease Family history of obesity Mother Family history of cataracts Other Family history of arthritis Family history of hearing loss Social History Social History (Updated 07/23/21 @ 16:37 by Tho Posey MD) Social History: Ms. Dwyer is and lives in her own home in [place]. She has 3 daughters. Her daughter's names are Sera Moreno, Ava Marjorie, and Danyell Resendez. She denies alcohol, tobacco, and drug use. 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 Code status: DNR Surrogate decision maker: Ava Allenn (daughter). Smoking status: Never smoker Second hand tobacco smoke exposure: No Alcohol intake: never Substance use: never Spiritual care concerns: Yes Meds Home Medications and Allergies Home Medications Medication Instructions Recorded Confirmed Type atorvastatin 40 mg tablet 40 mg PO QPM 12/29/18 07/23/21 History carvedilol 25 mg tablet 25 mg PO BID 01/27/21 07/23/21 History amlodipine 10 mg tablet 10 mg PO DAILY 03/17/21 07/23/21 History aspirin 81 mg tablet,delayed 81 mg PO HS 03/17/21 07/23/21 History release insulin glargine 100 unit/mL 10 unit subcut HS 03/20/21 0
--- NOTE | 2021-07-24 15:24 | P.DN_ITS ---
Discharge Summary Date and Time Date of : 07/23/21 Time of : 17:28 Provider Pronounced By: Sumi Mcelroy RN Probable Cause of Probable Cause of : ACUTE ON CHRONIC HYPOXEMIA AND HYPERCARBIC RESPIRATORY FAILURE DUE TO ACUTE ON CHRONIC DIASTOLIC CONGESTIVE HEART FAILURE EXACERBATED BY CARDIAC ARREST Summary Hospital Course: ADMITTED TO INPATIENT HOSPICE DUE TO UNCONTROLLED DYSPNEA. MEDICATIONS WERE TITRATED TO COMFORT. PATIENT PEACEFULLY. Additional Data Confirmation of as documented by pronouncing clinician: Pupillary Reflex, Palpable Pulses, Response to Stimuli, Heart Tones and Breath Sounds Name of Provider Notified: Dr. Posey Provider Requests Autopsy: No Compliance Advisor Notified: Yes Date [facility] Notified of : 07/23/21 Time [facility] Notified of : 17:43
--- OUTSIDE RECORDS SUMMARY | 2021-07-27 08:40 | XMS_ITS ---
:1950 Author Care Team Providers Name Role Phone DR. MARY DELGADO Primary Care Provider [phone] DR. MARY DELGADO Referring Provider [phone] Allergies Code Code System Name Reaction Severity Status Onset 2670 RxNorm Codeine Nausea Mild Active 11/06/2013 ? ? ? Other Mild Active ? 70737 RxNorm Tramadol Nausea Mild Active 11/02/2016 ? ? ? Other Mild Active ? Medications Name Status Start Date Stop Date ? ? alendronate 70 mg tablet Completed ? 021 TAKE 1 TABLET BY MOUTH ONCE PER WEEK FOR OSTEOPOROSIS amlodipine 10 mg tablet Active ? Not avai lable amoxicillin 500 mg capsule Completed ? 01/20 ascorbic acid (vitamin C) 500 mg tablet Active ? Not available 500 mg by oral route. aspirin Active ? Not available 81 mg qd atorvastatin 40 mg tablet Active 07/15/2020 Not av ailable BD Insulin Syringe Ultra-Fine 1 mL 31 gauge x Active ? Not available 06/29 bumetanide 1 mg tablet Completed ? 1 TAKE 1 TABLET BY MOUTH TWICE A DAY calcitriol 0.25 mcg capsule Active ? Not available calcium carb and citrate-vitD3 Completed ? 0 04/07/2020 calcium carbonate Completed ? 11/14/2020 600mg calcium carbonate 600 mg-vitamin D3 10 mcg (400 unit) tablet Act namrata 01/28/2016 Not available 1 {tbl} by oral route. carvedilol 25 mg tablet Active ? Not avai lable Take 1 tablet twice a day by oral route. Contour Next Test Strips Completed ? 021 TEST 3 TIMES A DAY cyclobenzaprine 10 mg tablet Completed ? 02/2020
== END 2021-07-23 17:28 | disposition expired | DRG 951 ==
PROVIDERS: Admitting Provider Internal Medicine; PCP Family Medicine; Visit Provider Internal Medicine
DX: Z51.5 Encounter for palliative care (principal); I50.33 Acute on chronic diastolic (congestive) heart failure; J96.21 Acute and chronic respiratory failure with hypoxia; J96.22 Acute and chronic respiratory failure with hypercapnia; I13.0 Hypertensive heart and chronic kidney disease with heart failure and stage 1 through stage 4 chronic kidney disease, or unspecified chronic kidney disease; N18.4 Chronic kidney disease, stage 4 (severe); E11.22 Type 2 diabetes mellitus with diabetic chronic kidney disease; I46.9 Cardiac arrest, cause unspecified
CPT/HCPCS: A9270; J1170